=== PATIENT | male | born 1940 | race Caucasian/White ===

== ENCOUNTER 2022-10-25 05:52 | Outpatient (RCR) | payer MEDICARE, OTHER, SELFPAY | END 2022-11-19 23:59 | disposition home or self-care (01) | LOC: MM 05:52 | PROVIDERS: PCP Family Medicine; Visit Provider Internal Medicine | DX: Z51.81 Encounter for therapeutic drug level monitoring (principal); Z79.01 Long term (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 of anticoagulants; I48.0 Paroxysmal atrial fibrillation | CPT/HCPCS: 85610; G0463 ==

== ENCOUNTER 2022-11-25 10:48 | Outpatient (RCR) | payer MEDICARE, OTHER, SELFPAY | END 2022-12-20 16:56 | disposition home or self-care (01) | LOC: MM 10:48 | PROVIDERS: PCP Internal Medicine; Visit Provider Internal Medicine | DX: Z51.81 Encounter for therapeutic drug level monitoring (principal); Z79.01 Long term (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 of anticoagulants; I48.0 Paroxysmal atrial fibrillation | CPT/HCPCS: 85610; G0463 ==

== ENCOUNTER 2022-12-21 09:16 | Outpatient (RCR) | payer MEDICARE, OTHER, SELFPAY | END 2023-01-20 17:31 | disposition home or self-care (01) | LOC: MM 09:16 | PROVIDERS: Visit Provider Internal Medicine | DX: Z51.81 Encounter for therapeutic drug level monitoring (principal); Z79.01 Long term (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 of anticoagulants; I48.0 Paroxysmal atrial fibrillation | CPT/HCPCS: 85610; G0463 ==

== ENCOUNTER 2022-12-29 08:01 | Outpatient (OUT) | payer MEDICARE, OTHER, SELFPAY ==
--- NOTE | 2022-12-29 09:06 | CA_ITS ---
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
== END 2022-12-29 08:02 | disposition home or self-care (01) ==
LOC: CARD 08:01
PROVIDERS: PCP Family Medicine
DX: I73.9 Peripheral vascular disease, unspecified (principal)
CPT/HCPCS: 93923

== ENCOUNTER 2023-01-21 10:16 | Outpatient (RCR) | payer MEDICARE, OTHER, SELFPAY | END 2023-02-18 16:48 | disposition home or self-care (01) | LOC: MM 10:16 | PROVIDERS: PCP Family Medicine; Visit Provider Internal Medicine | DX: Z51.81 Encounter for therapeutic drug level monitoring (principal); Z79.01 Long term (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 of anticoagulants; I48.0 Paroxysmal atrial fibrillation | CPT/HCPCS: 85610; G0463 ==

== ENCOUNTER 2023-02-21 01:48 | Outpatient (RCR) | payer MEDICARE, OTHER, SELFPAY | END 2023-03-22 17:23 | disposition home or self-care (01) | LOC: MM 01:48 | PROVIDERS: PCP Family Medicine; Visit Provider Internal Medicine | DX: Z51.81 Encounter for therapeutic drug level monitoring (principal); Z79.01 Long term (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 of anticoagulants; I48.0 Paroxysmal atrial fibrillation | CPT/HCPCS: 85610; G0463 ==

== ENCOUNTER 2023-03-23 00:38 | Outpatient (RCR) | payer MEDICARE, OTHER, SELFPAY | END 2023-04-21 16:39 | disposition home or self-care (01) | LOC: MM 00:38 | PROVIDERS: PCP Family Medicine; Visit Provider Internal Medicine | DX: Z51.81 Encounter for therapeutic drug level monitoring (principal); Z79.01 Long term (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 of anticoagulants; I48.0 Paroxysmal atrial fibrillation | CPT/HCPCS: 85610; G0463 ==

== ENCOUNTER 2023-04-22 09:27 | Outpatient (RCR) | payer MEDICARE, OTHER, SELFPAY | END 2023-05-20 15:08 | disposition home or self-care (01) | LOC: MM 09:27 | PROVIDERS: PCP Family Medicine; Visit Provider Internal Medicine | DX: Z51.81 Encounter for therapeutic drug level monitoring (principal); Z79.01 Long term (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 of anticoagulants; I48.0 Paroxysmal atrial fibrillation | CPT/HCPCS: 85610; G0463 ==

== ENCOUNTER 2023-05-23 01:23 | Outpatient (RCR) | payer MEDICARE, OTHER, SELFPAY | END 2023-06-22 17:17 | disposition home or self-care (01) | LOC: MM 01:23 | PROVIDERS: PCP Family Medicine; Visit Provider Internal Medicine | DX: Z51.81 Encounter for therapeutic drug level monitoring (principal); Z79.01 Long term (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 of anticoagulants; I48.0 Paroxysmal atrial fibrillation | CPT/HCPCS: 85610; G0463 ==

== ENCOUNTER 2023-06-23 01:04 | Outpatient (RCR) | payer MEDICARE, OTHER, SELFPAY | END 2023-07-21 17:22 | disposition home or self-care (01) | LOC: MM 01:04 | PROVIDERS: PCP Family Medicine; Visit Provider Internal Medicine | DX: Z51.81 Encounter for therapeutic drug level monitoring (principal); Z79.01 Long term (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 of anticoagulants; I48.91 Unspecified atrial fibrillation | CPT/HCPCS: 85610; G0463 ==

== ENCOUNTER 2023-07-22 01:15 | Outpatient (RCR) | payer MEDICARE, OTHER, SELFPAY | END 2023-08-19 13:17 | disposition home or self-care (01) | LOC: MM 01:15 | PROVIDERS: PCP Family Medicine; Visit Provider Internal Medicine | DX: Z51.81 Encounter for therapeutic drug level monitoring (principal); Z79.01 Long term (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 of anticoagulants; I48.0 Paroxysmal atrial fibrillation | CPT/HCPCS: 85610; G0463 ==

== ENCOUNTER 2023-08-17 08:41 | Outpatient (OUT) | payer MEDICARE, OTHER, SELFPAY ==
--- OUTSIDE RECORDS SUMMARY | 2023-08-17 08:48 | XMS_ITS | CCD ---
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 Comment: Therapeutic Range: Moderate Anticoagulant Intensity: INR = 2.0-3.0 High Anticoagulant Intensity: INR = 2.5-3.5 Performed By: #### P T ####[facility] Hyb[address]76 [facility] [place] [address] lab Director: Dl Jean DO PT Coag (PPP) [Time] 23.9 s High 11.8-14.6 [facility] Comment on above: Performed By: #### P T ####[facility] Hdz0860 [facility] [place] [address] lab Director: Dl Jean DO Glucose,Whole Bloodon 2023 Glucose [Mass/Vol] 146 mg/dL High 75-110 [facility] Glucose [Mass/Vol] 182 mg/dL High 75-110 [facility] Glucose [Mass/Vol] 183 mg/dL High 75-110 [facility] Glucose [Mass/Vol] 147 mg/dL High 75-110 [facility] Glucose [Mass/Vol] 151 mg/dL High 75-110 [facility] PTon 07-24-2023 INR Coag (PPP) [Relative time] 1.8 {INR} Normal [facility] Comment on above: Result Comment: Therapeutic Range: Moderate Anticoagulant Intensity: INR = 2.0-3.0 High Anticoagulant Intensity: INR = 2.5-3.5 Performed By: #### P T ####[facility] [address] [place] [address] Lab Director: Dl Jean DO PT Coag (PPP) [Time] 21.3 s High 11.8-14.6 [facility] Comment on above: Performed By: #### P T ####[facility] [address]fq[address] [place] [address] Lab Director: Dl Jean DO Glucose,Whole Bloodon 2023 Glucose [Mass/Vol] 154 mg/dL High 75-110 [facility] Glucose [Mass/Vol] 202 mg/dL High 75-110 [facility] Glucose [Mass/Vol] 180 mg/dL High 75-110 [facility] Liver Profileon 07-23-2023 Albumin [Mass/Vol] 3.6 g/dL Normal 3.5-5.2 [facility] Comment on above: Performed By: #### P T LIVP ####[facility] Mdn7305 [place] [address] Lab Director: Dl Jean DO Alkaline Phos 178 U/L High 40-129 [facility] Comment on above: Performed By: #### P T, LIVP ####[facility] Xng0412 [place] [address] Lab Director: Dl Jean DO ALT [Catalytic activity/Vol] 59 U/L High 5-41 [facility] Comment on above: Performed By: #### P T LIVP ####[facility] Dws[address]69 [place] [address] Lab Director: Dl Jean DO AST [Catalytic activity/Vol] 27 U/L Normal <40 [facility] Comment on above: Performed By: #### P T, LIVP ####[facility] [address] [place] [address] lab Director: Dl Jean DO Bilirubin [Mass/Vol] 0.5 mg/dL Normal 0.3-1.2 [facility] Comment on above: Performed By: #### P T, LIVP ####[facility] [address] [place] [address] lab Director: Dl Jean DO Bilirubin, Indirect 0.3 mg/dL Normal 0.0-1.0 [facility] Comment on above: Performed By: #### P T, LIVP ####[facility] [address] [place] [address] lab Director: Dl Jean DO Bilirubin.indirect [Mass/Vol] 0.2 mg/dL Normal <0.3 [facility] Comment on above: Performed By: #### P T, LIVP ####[facility] Kvj4785 [facility] [place] [address] lab Director: Dl Jean DO Protein [Mass/Vol] 6.3 g/dL Low 6.4-8.3 [facility] Comment on above: Performed By: #### P T, LIVP ####[facility] Ngq4334 [facility] [place] [address] lab Director: Dl Jean DO PTon 07-23-2023 INR Coag (PPP) [Relative time] 1.6 {INR} Normal [facility] Comment on above: Result Comment: Therapeutic Range: Moderate Anticoagulant Intensity: INR = 2.0-3.0 High Anticoagulant Intensity: INR = 2.5-3.5 Performed By: #### P T, LIVP ####[facility] [address] [facility] [place] [address] lab Director: Dl Jean DO PT Coag (PPP) [Time] 19.1 s High 11.8-14.6 [facility] Comment on above: Performed By: #### P T, LIVP ####[facility] X[address]z9146 [place] [address] lab Director: Dl Jean DO Glucose,Whole Bloodon 2023 Glucose [Mass/Vol] 211 mg/dL High 75-110 [facility] Glucose [Mass/Vol] 131 mg/dL High 75-110 [facility] Glucose [Mass/Vol] 227 mg/dL High 75-110 [facility] Glucose [Mass/Vol] 181 mg/dL High -110 [facility] PTon 07-22-2023 INR Coag (PPP) [Relative time] 1.5 {INR} Normal [facility] Comment on above: Result Comment: Therapeutic Range: Moderate Anticoagulant Intensity: INR = 2.0-3.0 High Anticoagulant Intensity: INR = 2.5-3.5 Performed By: #### P T ####[facility] Wdx3071 [place] [address] Lab Director: Dl Jean DO PT Coag (PPP) [Time] 18.0 s High 11.8-14.6 [facility] Comment on above: Performed By: #### P T ####[facility] Dla0822 [place] [address] lab Director: Dl Jean DO Glucose,Whole Bloodon 2023 Glucose [Mass/Vol] 148 mg/dL High 75-110 [facility] Glucose [Mass/Vol] 253 mg/dL High 75-110 [facility] Glucose [Mass/Vol] 190 mg/dL High 75-110 [facility] Glucose [Mass/Vol] 171 mg/dL High 75-110 [facility] PTon 07-21-2023 INR Coag (PPP) [Relative time] 1.5 {INR} Normal [facility] Comment on above: Result Comment: Therapeutic Range: Moderate Anticoagulant Intensity: INR = 2.0-3.0 High Anticoagulant Intensity: INR = 2.5-3.5 Performed By: #### P T ####[facility] [address] [place] [address] lab Director: Dl Jean DO PT Coag (PPP) [Time] 17.9 s High 11.8-14.6 [facility] Comment on above: Performed By: #### P T ####[facility] [address] [facility] [place] [address] lab Director: Dl Jean DO XR CERVICAL SPINE (4-5 VIEWS )on 07-21-2023 XR CERVICAL SPINE (4-5 VIEWS) EXAMINATION: 5 XRAY VIEWS OF THE CERVICAL SPINE 07/21/2023 6:28 pm COMPARISON: 07/14/2023 HISTORY: Persistent pain. Known upper cervical spine fractures. FINDINGS: Osteopenia. Advanced multilevel degenerative changes. No significant spondylolisthesis. Known fracture is not well visualized. Soft tissues are unremarkable. IMPRESSION: Known upper cervical spine fracture not well visualized. Advanced multilevel degenerative changes. No malalignment. Interpreted by: Antonieta Banuelos MD Signed by: Antonieta Banuelos MD 07/21/23 Final result Normal [facility] Basic Metab w/rfx MGon 07-20 Anion gap [Moles/Vol] 12 mmol/L Normal 9-17 [facility] Comment on above: Performed By: #### L IVP, BMPX, PT, CDP ####[facility] Msj1070 [facility] [place] [address] lab Director: Dl Jean DO Calcium [Mass/Vol] 8.9 mg/dL Normal 8.6-10.4 [facility] Comment on above: Performed By: #### L IVP, BMPX, PT, CDP ####[facility] [address] [facility] [place] [address] Lab Director: Dl Jean DO Chloride [Moles/Vol] 102 mmol/L Normal 98-107 [facility] Comment on above: Performed By: #### L IVP, BMPX, PT, CDP ####[facility] [address] [place] [address] Lab Director: Dl Jean DO CO2 [Moles/Vol] 23 mmol/L Normal 20-31 [facility] Comment on above: Performed By: #### L IVP, BMPX, PT, CDP ####[facility] [address] [place] [address] Lab Director: Dl Jean DO Creatinine [Mass/Vol] 0.9 mg/dL Normal 0.7-1.2 [facility] Comment on above: Performed By: #### L IVP, BMPX, PT, CDP ####[facility] [address] [facility] [place] [address] Lab Director: Dl Jean DO GFR/1.73 sq M.predicted among non-blacks MDRD (S/P/Bld) [Vol rate/Area] mL/min/{1.73_m2} Normal >60 [facility] Comment on above: Result Comment: These results are not intended for use in patients <18 years of age. eGFR results are calculated without a race factor using the 2020 CKD-EPI equation. Careful clinical correlation is recommended, particularly when comparing to results calculated using previous equations. The CKD-EPI equation is less accurate in patients with extremes of muscle mass, extra-renal metabolism of creatine, excessive creatine ingestion, or following therapy that affects renal tubular secretion. Performed By: #### L IVP, BMPX, PT, CDP ####[facility] [address] [place] [address] Lab Director: Dl Jean DO Glucose [Mass/Vol] 173 mg/dL High 70-99 [facility] Comment on above: Performed By: #### L IVP, BMPX, PT, CDP ####[facility] [address] [place] [address] lab Director: Dl Jean DO Potassium [Moles/Vol] 4.8 mmol/L Normal 3.7-5.3 [facility] Comment on above: Performed By: #### L IVP, BMPX, PT, CDP ####[facility] [address], [place] [phone] Director: Dl Jean DO Sodium [Moles/Vol] 137 mmol/L Normal 135-144 [facility] Comment on above: Performed By: #### L IVP, BMPX, PT, CDP ####[facility] [address], [place] [address])[phone] Director: Dl Jean DO Urea nitrogen [Mass/Vol] 19 mg/dL Normal 8-23 [facility] Comment on above: Performed By: #### L IVP, BMPX, PT, CDP ####[facility] [id number] [facility] [place] [address] lab Director: Dl Jean DO CBC with Diffon 07-20-2023 Abs. Basophil 0.10 k/uL Normal 0.0-0.2 [facility] Comment on above: Performed By: #### L IVP, BMPX, PT, CDP ####[facility] [address] [place] [address] lab Director: Dl Jean DO Abs.Neutrophil (Seg) 5.00 k/uL Normal 1.3-9.1 [facility] Comment on above: Performed By: #### L IVP, BMPX, PT, CDP ####[facility] [address] [place] [address] lab Director: Dl Jean DO Basophils/100 WBC (Bld) 1 % Normal 0-2 [facility] Comment on above: Performed By: #### L IVP, BMPX, PT, CDP ####[facility] [address] [place] [address] Lab Director: Dl Jean DO Eosinophils (Bld) [#/Vol] 0.10 10*3/uL Normal 0.0-0.4 [facility] Comment on above: Performed By: #### L IVP, BMPX, PT, CDP ####[facility] [address] [facility] [place] [address] Lab Director: Dl Jean DO Eosinophils/100 WBC (Bld) 2 % Normal 0-4 [facility] Comment on above: Performed By: #### L IVP, BMPX, PT, CDP ####[facility] Aoz5754 [facility] [place] [address] Lab Director: Dl Jean DO Erythrocyte distribution width (RBC) [Ratio] 16.4 % High 11.5-14.9 [facility] Comment on above: Performed By: #### L IVP, BMPX, PT, CDP ####[facility] Kpx5760 [facility] [place] [address] Lab Director: Dl Jean DO Hematocrit (Bld) [Volume fraction] 34.5 % Low 41-53 [facility] Comment on above: Performed By: #### L IVP, BMPX, PT, CDP ####[facility] Kkg0453 [facility] [place] [address] Lab Director: Dl Jean DO Hemoglobin (Bld) [Mass/Vol] 11.0 g/dL Low 13.5-17.5 [facility] Comment on above: Performed By: #### L IVP, BMPX, PT, CDP ####[facility] [address] [place] [address] [facility] [place] [address] lab Director: Dl Jean DO Lymphocytes (Bld) [#/Vol] 1.10 10*3/uL Normal 1.0-4.8 [facility] Comment on above: Performed By: #### L IVP, BMPX, PT, CDP ####[facility] Hga9997 [facility], [place] [phone] Director: Dl Jean DO Lymphocytes/100 WBC (Bld) 15 % Low 24-44 [facility] Comment on above: Performed By: #### L IVP, BMPX, PT, CDP ####[address], [place] [phone] Director: Dl Jean DO MCH (RBC) [Entitic mass] 29.8 pg Normal 26-34 [facility] Comment on above: Performed By: #### L IVP, BMPX, PT, CDP ####[address] [address] lab Director: Dl Jean DO MCHC (RBC) [Mass/Vol] 32.0 g/dL Normal 31-37 [facility] Comment on above: Performed By: #### L IVP, BMPX, PT, CDP ####[address] [place] [address] Lab Director: Dl Jean DO MCV (RBC) [Entitic vol] 93.1 fL Normal 80-100 [facility] Comment on above: Performed By: #### L IVP, BMPX, PT, CDP ####[address] [phone] Director: Dl Jean DO Monocytes (Bld) [#/Vol] 0.80 10*3/uL Normal 0.1-1.3 [facility] Comment on above: Performed By: #### L IVP, BMPX, PT, CDP ####[facility] [address], [place] [phone] Director: Dl Jean DO Monocytes/100 WBC (Bld) 11 % High 1-7 [facility] Comment on above: Performed By: #### L IVP, BMPX, PT, CDP ####[facility] [address], [place] [phone] Director: Dl Jean DO Neutrophil (Seg) 71 % High 36-66 [facility] Comment on above: Performed By: #### L IVP, BMPX, PT, CDP ####[facility] [address], [place] [phone] Director: Dl Jean DO Platelet mean volume (Bld) [Entitic vol] 7.4 fL Normal 6.0-12.0 [facility] Comment on above: Performed By: #### L IVP, BMPX, PT, CDP ####[facility] [address] [facility], [place] [phone] Director: Dl Jean DO Platelets (Bld) [#/Vol] 283 10*3/uL Normal 150-450 [facility] Comment on above: Performed By: #### L IVP, BMPX, PT, CDP ####[facility] [address] [facility], [place] [phone] Director: Dl Jean DO RBC (Bld) [#/Vol] 3.70 10*6/uL Low 4.5-5.9 [facility] Comment on above: Performed By: #### L IVP, BMPX, PT, CDP ####[facility] [address], [place] [phone] Director: Dl Jean DO WBC (Bld) [#/Vol] 7.0 10*3/uL Normal 3.5-11.0 [facility] Comment on above: Performed By: #### L IVP, BMPX, PT, CDP ####[facility] Quo4378 [place] [address] Lab Director: Dl Jean DO Glucose,Whole Bloodon 2023 Glucose [Mass/Vol] 178 mg/dL High 75-110 [facility] Glucose [Mass/Vol] 191 mg/dL High 75-110 [facility] Glucose [Mass/Vol] 256 mg/dL High 75-110 [facility] Glucose [Mass/Vol] 136 mg/dL High 75-110 [facility] Glucose [Mass/Vol] 183 mg/dL High 75-110 [facility] Liver Profileon 07-20-2023 Albumin [Mass/Vol] 3.1 g/dL Low 3.5-5.2 [facility] Comment on above: Performed By: #### L IVP, BMPX, PT, CDP ####[facility] Onb4975 [place] [address] Lab Director: Dl Jean DO Alkaline Phos 126 U/L Normal 40-129 [facility] Comment on above: Performed By: #### L IVP, BMPX, PT, CDP ####[facility] Hku1488 [place] [address] Lab Director: Dl Jean DO ALT [Catalytic activity/Vol] 73 U/L High 5-41 [facility] Comment on above: Performed By: #### L IVP, BMPX, PT, CDP ####[facility] Tql9182 [place] [address] Lab Director: Dl Jean DO AST [Catalytic activity/Vol] 56 U/L High <40 [facility] Comment on above: Performed By: #### L IVP, BMPX, PT, CDP ####[facility] [address] [place] [address] lab Director: Dl Jean DO Bilirubin [Mass/Vol] 0.5 mg/dL Normal 0.3-1.2 [facility] Comment on above: Performed By: #### L IVP, BMPX, PT, CDP ####[facility] [address] [place] [address] lab Director: Dl Jean DO Bilirubin, Indirect 0.3 mg/dL Normal 0.0-1.0 [facility] Comment on above: Performed By: #### L IVP, BMPX, PT, CDP ####[facility] [address] [place] [address] lab Director: Dl Jean DO Bilirubin.indirect [Mass/Vol] 0.2 mg/dL Normal <0.3 [facility] Comment on above: Performed By: #### L IVP, BMPX, PT, CDP ####[facility] Sdk9078 [facility] [place] [address] lab Director: Dl Jean DO Protein [Mass/Vol] 5.8 g/dL Low 6.4-8.3 [facility] Comment on above: Performed By: #### L IVP, BMPX, PT, CDP ####[facility] [address] [place] [address] Lab Director: Dl Jean DO PTon 07-20-2023 INR Coag (PPP) [Relative time] 1.2 {INR} Normal [facility] Comment on above: Result Comment: Therapeutic Range: Moderate Anticoagulant Intensity: INR = 2.0-3.0 High Anticoagulant Intensity: INR = 2.5-3.5 Performed By: #### L IVP, BMPX, PT, CDP ####[facility] B[address] [place] [address] Lab Director: Dl Jean DO PT Coag (PPP) [Time] 15.9 s High 11.8-14.6 [facility] Comment on above: Performed By: #### L IVP, BMPX, PT, CDP ####[facility] Lwl[address]289 [place] [address] lab Director: Dl Jean DO Glucose,Whole Bloodon 2023 Glucose [Mass/Vol] 254 mg/dL High 75-110 [facility] Glucose [Mass/Vol] 155 mg/dL High 75-110 [facility] PTon 07-19-2023 INR Coag (PPP) [Relative time] 1.3 {INR} Normal [facility] Comment on above: Result Comment: Therapeutic Range: Moderate Anticoagulant Intensity: INR = 2.0-3.0 High Anticoagulant Intensity: INR = 2.5-3.5 Performed By: #### P T ####[address] [address] lab Director: Carlos Rowland MD PT Coag (PPP) [Time] 16.1 s High 11.7-14.9 [facility] Comment on above: Performed By: #### P T ####[facility] [place] [address] Lab Director: Carlos Rowland MD Basic Metabolic Profon 07-18 Anion gap [Moles/Vol] 10 mmol/L Normal 9-17 [facility] Comment on above: Performed By: #### P HO, MG, BMP, CDP, PT ####[facility] [address] [place] [address] lab Director: Carlos Rowland MD Calcium [Mass/Vol] 8.5 mg/dL Low 8.6-10.4 [facility] Comment on above: Performed By: #### P HO, MG, BMP, CDP, PT ####[facility] [address] [place] [address] Lab Director: Carlos Rowland MD Chloride [Moles/Vol] 104 mmol/L Normal 98-107 [facility] Comment on above: Performed By: #### P HO, MG, BMP, CDP, PT ####[facility] [address] [place] [address] Lab Director: Carlos Rowland MD CO2 [Moles/Vol] 24 mmol/L Normal 20-31 [facility] Comment on above: Performed By: #### P HO, MG, BMP, CDP, PT ####[facility] [address] [place] [address] Lab Director: Carlos Rowland MD Creatinine [Mass/Vol] 0.9 mg/dL Normal 0.7-1.2 [facility] Comment on above: Performed By: #### P HO, MG, BMP, CDP, PT ####[facility] [address] [place] [address] Lab Director: Carlos Rowland MD GFR/1.73 sq M.predicted among non-blacks MDRD (S/P/Bld) [Vol rate/Area] mL/min/{1.73_m2} Normal >60 [facility] Comment on above: Result Comment: These results are not intended for use in patients <18 years of age. eGFR results are calculated without a race factor using the 2020 CKD-EPI equation. Careful clinical correlation is recommended, particularly when comparing to results calculated using previous equations. The CKD-EPI equation is less accurate in patients with extremes of muscle mass, extra-renal metabolism of creatine, excessive creatine ingestion, or following therapy that affects renal tubular secretion. Performed By: #### P HO, MG, BMP, CDP, PT ####[facility] [address] [place] [address] Lab Director: Carlos Rowland MD Glucose [Mass/Vol] 121 mg/dL High 70-99 [facility] Comment on above: Performed By: #### P HO, MG, BMP, CDP, PT ####[facility] [address] [place], [place] [address])[phone] Director: Carlos Rowland MD Potassium [Moles/Vol] 4.4 mmol/L Normal 3.7-5.3 [facility] Comment on above: Performed By: #### P HO, MG, BMP, CDP, PT ####[facility] [address] [place], [place] [address])[phone] Director: Carlos Rowland MD Sodium [Moles/Vol] 138 mmol/L Normal 135-144 [facility] Comment on above: Performed By: #### P HO, MG, BMP, CDP, PT ####[place], [place] [address])[phone] Director: Carlos Rowland MD Urea nitrogen [Mass/Vol] 19 mg/dL Normal 8-23 [facility] Comment on above: Performed By: #### P HO, MG, BMP, CDP, PT ####[facility] [address] [place], [place] [address])[phone] Director: Carlos Rowland MD CBC with Diffon 07-18-2023 Abs. Basophil 0.07 k/uL Normal 0.00-0.20 [facility] Comment on above: Performed By: #### P HO, MG, BMP, CDP, PT ####[facility] [address] [place], [place] [address])[phone] Director: Carlos Rowland MD Abs.Imm.Granulocyte <0.03 Normal 0.00-0.30 [facility] Comment on above: Performed By: #### P HO, MG, BMP, CDP, PT ####[facility] [address] [place], [place] [address])[phone] Director: Carlos Rowland MD Abs.Neutrophil (Seg) 5.21 k/uL Normal 1.50-8.10 [facility] Comment on above: Performed By: #### P HO, MG, BMP, CDP, PT ####[facility] [address] [place] [address])[phone] Director: Carlos Rowland MD Basophils/100 WBC (Bld) 1 % Normal 0-2 [facility] Comment on above: Performed By: #### P HO, MG, BMP, CDP, PT ####[place], [place] [address])[phone] Director: Carlos Rowland MD Eosinophils (Bld) [#/Vol] 0.14 10*3/uL Normal 0.00-0.44 [facility] Comment on above: Performed By: #### P HO, MG, BMP, CDP, PT ####[address] [address])[phone] Director: Carlos Rowland MD Eosinophils/100 WBC (Bld) 2 % Normal 1-4 [facility] Comment on above: Performed By: #### P HO, MG, BMP, CDP, PT ####[place], [place] [address])[phone] Director: Carlos Rowland MD Erythrocyte distribution width (RBC) [Ratio] 15.3 % High 11.8-14.4 [facility] Comment on above: Performed By: #### P HO, MG, BMP, CDP, PT ####[facility] [address] [place], [place] [address])[phone] Director: Carlos Rowland MD Hematocrit (Bld) [Volume fraction] 31.7 % Low 40.7-50.3 [facility] Comment on above: Performed By: #### P HO, MG, BMP, CDP, PT ####[facility] [address] [place], [place] [address])[phone] Director: Carlos Rowland MD Hemoglobin (Bld) [Mass/Vol] 10.4 g/dL Low 13.0-17.0 [facility] Comment on above: Performed By: #### P HO, MG, BMP, CDP, PT ####[facility] [address]fp[address] [place], [place] [address])[phone] Director: Carlos Rowland MD Immature granulocytes/100 WBC (Bld) 0 % Normal 0 [facility] Comment on above: Performed By: #### P HO, MG, BMP, CDP, PT ####[facility] [address] [place], [place] [address])[phone] Director: Carlos Rowland MD Lymphocytes (Bld) [#/Vol] 1.29 10*3/uL Normal 1.10-3.70 [facility] Comment on above: Performed By: #### P HO, MG, BMP, CDP, PT ####[facility] [address] [place], [place] [address])[phone] Director: Carlos Rowland MD Lymphocytes/100 WBC (Bld) 17 % Low 24-43 [facility] Comment on above: Performed By: #### P HO, MG, BMP, CDP, PT ####[facility] [address] [place], [place] [address])[phone] Director: Carlos Rowland MD MCH (RBC) [Entitic mass] 30.3 pg Normal 25.2-33.5 [facility] Comment on above: Performed By: #### P HO, MG, BMP, CDP, PT ####[facility] [address] [place], [place] [address])[phone] Director: Carlos Rowland MD MCHC (RBC) [Mass/Vol] 32.8 g/dL Normal 28.4-34.8 [facility] Comment on above: Performed By: #### P HO, MG, BMP, CDP, PT ####[facility] [address] [place], [place] [address])[phone] Director: Carlos Rowland MD MCV (RBC) [Entitic vol] 92.4 fL Normal 82.6-102.9 [facility] Comment on above: Performed By: #### P HO, MG, BMP, CDP, PT ####[facility] [address]tnxzmwkklek75[address] [place], [place] [id number])[phone] Director: Carlos Rowland MD Monocytes (Bld) [#/Vol] 0.81 10*3/uL Normal 0.10-1.20 [facility] Comment on above: Performed By: #### P HO, MG, BMP, CDP, PT ####[facility] [address] [place], [place] [address])[phone] Director: Carlos Rowland MD Monocytes/100 WBC (Bld) 11 % Normal 3-12 [facility] Comment on above: Performed By: #### P HO, MG, BMP, CDP, PT ####[facility] [address] [place] [address])[phone] Director: Carlos Rowland MD Neutrophil (Seg) 69 % High 36-65 [facility] Comment on above: Performed By: #### P HO, MG, BMP, CDP, PT ####[facility] [address] [place] [address] [id number])[phone] Director: Carlos Rowland MD NRBC Automated 0.0 per 100 WBC Normal 0.0 [facility] Comment on above: Performed By: #### P HO, MG, BMP, CDP, PT ####[facility] [address]tr[address] [place], [place] [id number])[phone] Director: Carlos Rowland MD Platelet mean volume (Bld) [Entitic vol] 9.8 fL Normal 8.1-13.5 [facility] Comment on above: Performed By: #### P HO, MG, BMP, CDP, PT ####[facility] [address]ubtq[address] [place], [place] [id number])[phone] Director: Carlos Rowland MD Platelets (Bld) [#/Vol] 238 10*3/uL Normal 138-453 [facility] Comment on above: Performed By: #### P HO, MG, BMP, CDP, PT ####[facility] Hdxyfqyvrzdi12[address] [place], [place] [id number])[phone] Director: Carlos Rowland MD RBC (Bld) [#/Vol] 3.43 10*6/uL Low 4.21-5.77 [facility] Comment on above: Performed By: #### P HO, MG, BMP, CDP, PT ####[facility] [address]zds[address] [place] [address] Lab Director: Carlos Rowland MD RBC morphology finding Nom (Bld) ANISOCYTOSIS PRESENT Normal [facility] Comment on above: Performed By: #### P HO, MG, BMP, CDP, PT ####[facility] [address]vzh[address] [place], [place] [id number])[phone] Director: Carlos Rowland MD WBC (Bld) [#/Vol] 7.5 10*3/uL Normal 3.5-11.3 [facility] Comment on above: Performed By: #### P HO, MG, BMP, CDP, PT ####[facility] [address]yuozk[address] [place], [place] [id number])[phone] Director: Carlos Rowland MD Cult,Bloodon 07-18-2023 Cult,Blood Specimen Description .BLOOD Special Requests RT HAND 1 ML Culture NO GROWTH 5 DAYS Report Status FINAL 07/18/2023 Normal [facility] Comment on above: Performed By: #### B C ####[facility] [address] [place], [place] [id number])[phone] Director: Carlos Rowland MD Cult,Blood Specimen Description .BLOOD Special Requests LEFT HAND 1 ML Culture NO GROWTH 5 DAYS Report Status FINAL 07/18/2023 Normal [facility] Comment on above: Performed By: #### B C ####[facility] [address] [place], [place] [phone] lab Director: Carlos Rowland MD Glucose,Whole Bloodon 2023 Glucose [Mass/Vol] 255 mg/dL High 75-110 [facility] Glucose [Mass/Vol] 311 mg/dL High 75-110 [facility] Glucose [Mass/Vol] 142 mg/dL High 75-110 [facility] Glucose [Mass/Vol] 312 mg/dL High 75-110 [facility] Glucose [Mass/Vol] 178 mg/dL High 75-110 [facility] Glucose [Mass/Vol] 167 mg/dL High 75-110 [facility] Magnesiumon 07-18-2023 Magnesium [Mass/Vol] 1.9 mg/dL Normal 1.6-2.6 [facility] Comment on above: Performed By: #### P HO, MG, BMP, CDP, PT ####[facility] Hospital[facility]ouserieWniwmheaepko16[address] [place] [phone] lab Director: Carlos Rowland MD PTon 07-18-2023 INR Coag (PPP) [Relative time] 1.3 {INR} Normal [facility] Comment on above: Result Comment: Therapeutic Range: Moderate Anticoagulant Intensity: INR = 2.0-3.0 High Anticoagulant Intensity: INR = 2.5-3.5 Performed By: #### P HO, MG, BMP, CDP, PT ####[facility]Any[facility] [address]fr[address] [place] [phone] lab Director: Carlos Rowland MD PT Coag (PPP) [Time] 15.8 s High 11.7-14.9 [facility] Comment on above: Performed By: #### P HO, MG, BMP, CDP, PT ####[facility] [address] [place], [place] [phone] lab Director: Carlos Rowland MD Phosphorus, Inorg.on 024 Phosphorus, Inorg. 3.6 mg/dL Normal 2.5-4.5 [facility] Comment on above: Performed By: #### P HO, MG, BMP, CDP, PT ####[address] [address] Lab Director: Carlos Rowland MD Basic Metabolic Profon 07-17 Anion gap [Moles/Vol] 8 mmol/L Low 9-17 [facility] Comment on above: Performed By: #### U MICAO, UAX #### [facility] [address] [place] [address] [employer]: Carlos Rowland MD Calcium [Mass/Vol] 8.6 mg/dL Normal 8.6-10.4 [facility] Comment on above: Performed By: #### U MICAO, UAX #### [address] [address] [employer]: Carlos Rowland MD Chloride [Moles/Vol] 102 mmol/L Normal 98-107 [facility] Comment on above: Performed By: #### U MELIZAO, UAX #### [address] [address] [employer]: Carlos Rowland MD CO2 [Moles/Vol] 23 mmol/L Normal 20-31 [facility] Comment on above: Performed By: #### U MELIZAO, UAX #### [facility] [employer] [address] [place] [address] [employer]: Carlos Rowland MD Creatinine [Mass/Vol] 0.9 mg/dL Normal 0.7-1.2 [facility] Comment on above: Performed By: #### U MICAO, UAX #### [facility] [employer] [address] [place] [address] [employer]: Carlos Rowland MD GFR/1.73 sq M.predicted among non-blacks MDRD (S/P/Bld) [Vol rate/Area] mL/min/{1.73_m2} Normal >60 [facility] Comment on above: Result Comment: These results are not intended for use in patients <18 years of age. eGFR results are calculated without a race factor using the 2020 CKD-EPI equation. Careful clinical correlation is recommended, particularly when comparing to results calculated using previous equations. The CKD-EPI equation is less accurate in patients with extremes of muscle mass, extra-renal metabolism of creatine, excessive creatine ingestion, or following therapy that affects renal tubular secretion. Performed By: #### U EDGAR UAX #### [facility] [employer] [address] [place] [address] [employer]: Carlos Rowland MD Glucose [Mass/Vol] 169 mg/dL High 70-99 [facility] Comment on above: Performed By: #### Anant HERNÁNDEZ UAX #### [address] [address] [employer]: Carlos Rowland MD Potassium [Moles/Vol] 4.8 mmol/L Normal 3.7-5.3 [facility] Comment on above: Performed By: #### Anant HERNÁNDEZ UAX #### [address] [address] [employer]: Carlos Rowland MD Sodium [Moles/Vol] 133 mmol/L Low 135-144 [facility] Comment on above: Performed By: #### Anant HERNÁNDEZ UAX #### [facility] [employer] [address] [place] [address] [employer]: Carlos Rowland MD Urea nitrogen [Mass/Vol] 22 mg/dL Normal 8-23 [facility] Comment on above: Performed By: #### U EDGAR UAX #### [address] [address] [employer]: Carlos Rowland MD CBC with Diffon 07-17-2023 Abs. Basophil 0.09 k/uL Normal 0.00-0.20 [facility] Comment on above: Performed By: #### U EDGAR UAX #### [address] [address] [employer]: Carlos Rowland MD Abs.Imm.Granulocyte 0.04 k/uL Normal 0.00-0.30 [facility] Comment on above: Performed By: #### U EDGAR UAX #### [address] [address] [employer]: Carlos Rowland MD Abs.Neutrophil (Seg) 5.58 k/uL Normal 1.50-8.10 [facility] Comment on above: Performed By: #### U EDGAR UAX #### [facility] [employer] [address] [place] [address] [employer]: Carlos Rowland MD Basophils/100 WBC (Bld) 1 % Normal 0-2 [facility] Comment on above: Performed By: #### U EDGAR UAX #### [address] [address] [employer]: Carlos Rowland MD Eosinophils (Bld) [#/Vol] 0.16 10*3/uL Normal 0.00-0.44 [facility] Comment on above: Performed By: #### Anant HERNÁNDEZ UAX #### [address] [address] [employer]: Carlos Rowland MD Eosinophils/100 WBC (Bld) 2 % Normal 1-4 [facility] Comment on above: Performed By: #### U EDGAR UAX #### [facility] [employer] [address] [place] [address] [employer]: Carlos Rowland MD Erythrocyte distribution width (RBC) [Ratio] 15.3 % High 11.8-14.4 [facility] Comment on above: Performed By: #### U EDGAR UAX #### [facility] [employer] [address] [place] [address] [employer]: Carlos Rowland MD Hematocrit (Bld) [Volume fraction] 35.8 % Low 40.7-50.3 [facility] Comment on above: Performed By: #### U MICAO, UAX #### [address] [address] [employer]: Carlos Rowland MD Hemoglobin (Bld) [Mass/Vol] 11.2 g/dL Low 13.0-17.0 [facility] Comment on above: Performed By: #### U MICAO, UAX #### [address] [address] [employer]: Carlos Rowland MD Immature granulocytes/100 WBC (Bld) 1 % High 0 [facility] Comment on above: Performed By: #### U EDGAR, UAX #### [address] [address] [employer]: Carlos Rowland MD Lymphocytes (Bld) [#/Vol] 1.11 10*3/uL Normal 1.10-3.70 [facility] Comment on above: Performed By: #### U EDGAR, UAX #### [address] [address] [employer]: Carlos Rowland MD Lymphocytes/100 WBC (Bld) 14 % Low 24-43 [facility] Comment on above: Performed By: #### U MICAO, UAX #### [address] [address] [employer]: Carlos Rowland MD MCH (RBC) [Entitic mass] 29.4 pg Normal 25.2-33.5 [facility] Comment on above: Performed By: #### U MELIZAO, UAX #### [facility] [employer] [address] [place] [address] [employer]: Carlos Rowland MD MCHC (RBC) [Mass/Vol] 31.3 g/dL Normal 28.4-34.8 [facility] Comment on above: Performed By: #### U MELIZAO, UAX #### [address] [address] [employer]: Carlos Rowland MD MCV (RBC) [Entitic vol] 94.0 fL Normal 82.6-102.9 [facility] Comment on above: Performed By: #### U MICAO, UAX #### [address] [address] [employer]: Carlos Rowland MD Monocytes (Bld) [#/Vol] 0.74 10*3/uL Normal 0.10-1.20 [facility] Comment on above: Performed By: #### U EDGAR, UAX #### [address] [address] [employer]: Carlos Rowland MD Monocytes/100 WBC (Bld) 10 % Normal 3-12 [facility] Comment on above: Performed By: #### U MELIZAO, UAX #### [address] [address] [employer]: Carlos Rowland MD Neutrophil (Seg) 72 % High 36-65 [facility] Comment on above: Performed By: #### U MICAO, UAX #### [address] [address] [employer]: Carlos Rowland MD NRBC Automated 0.0 per 100 WBC Normal 0.0 [facility] Comment on above: Performed By: #### U MICAO, UAX #### [address] [address] [employer]: Carlos Rowland MD Platelet mean volume (Bld) [Entitic vol] 9.7 fL Normal 8.1-13.5 [facility] Comment on above: Performed By: #### U EDGAR UAX #### [address] [address] [employer]: Carlos Rowland MD Platelets (Bld) [#/Vol] 235 10*3/uL Normal 138-453 [facility] Comment on above: Performed By: #### Anant HERNÁNDEZ UAX #### [facility] [employer] [address] [place] [address] [employer]: Carlos Rowland MD RBC (Bld) [#/Vol] 3.81 10*6/uL Low 4.21-5.77 [facility] Comment on above: Performed By: #### Anant HERNÁNDEZ UAX #### [address] [address] [employer]: Carlos Rowland MD RBC morphology finding Nom (Bld) ANISOCYTOSIS PRESENT Normal [facility] Comment on above: Performed By: #### Anant HERNÁNDEZ UAX #### [facility] [employer] [address] [place] [address] [employer]: Carlos Rowland MD WBC (Bld) [#/Vol] 7.7 10*3/uL Normal 3.5-11.3 [facility] Comment on above: Performed By: #### Anant HERNÁNDEZ UAX #### [address] [address] [employer]: Carlos Rowland MD Glucose,Whole Bloodon 2023 Glucose [Mass/Vol] 251 mg/dL High 75-110 [facility] Glucose [Mass/Vol] 185 mg/dL High 75-110 [facility] Glucose [Mass/Vol] 293 mg/dL High 75-110 [facility] Magnesiumon 07-17-2023 Magnesium [Mass/Vol] 1.9 mg/dL Normal 1.6-2.6 [facility] Comment on above: Performed By: #### Anant HERNÁNDEZ UAX #### [facility] [address] [place] [address] [phone] [employer]: Carlos Rowland MD PTon 07-17-2023 INR Coag (PPP) [Relative time] 1.2 {INR} Normal [facility] Comment on above: Result Comment: Therapeutic Range: Moderate Anticoagulant Intensity: INR = 2.0-3.0 High Anticoagulant Intensity: INR = 2.5-3.5 Performed By: #### Anant HERNÁNDEZ UAX #### [facility] [employer] [address] [place] [address] [phone] [employer]: Carlos Rowland MD PT Coag (PPP) [Time] 14.9 s Normal 11.7-14.9 [facility] Comment on above: Performed By: #### Anant HERNÁNDEZ UAX #### [facility] [address] [place] [address] [employer]: Carlos Rowland MD Phosphorus, Inorg.on 024 Phosphorus, Inorg. 3.1 mg/dL Normal 2.5-4.5 [facility] Comment on above: Performed By: #### Anant HERNÁNDEZ UAX #### [facility] [address] [place] [address] [employer]: Carlos Rowland MD Basic Metabolic Profon 07-16 Anion gap [Moles/Vol] 11 mmol/L Normal 9-17 [facility] Comment on above: Performed By: #### Anant HERNÁNDEZ UAX #### [facility] [employer] [address] [place] [address] [phone] [employer]: Carlos Rowland MD Calcium [Mass/Vol] 8.3 mg/dL Low 8.6-10.4 [facility] Comment on above: Performed By: #### LEDY RYDERX #### [facility] [address] [place] [address] [employer]: Carlos Rowland MD Chloride [Moles/Vol] 103 mmol/L Normal 98-107 [facility] Comment on above: Performed By: #### U MICAO, UAX #### [facility] [address] [place] [address] [employer]: Carlos Rowland MD CO2 [Moles/Vol] 22 mmol/L Normal 20-31 [facility] Comment on above: Performed By: #### U MICAO, UAX #### [facility] [employer] [address] [place] [address] [employer]: Carlos Rowland MD Creatinine [Mass/Vol] 1.0 mg/dL Normal 0.7-1.2 [facility] Comment on above: Performed By: #### U MELIZAO, UAX #### [facility] [employer] [address] [place] [address] [employer]: Carlos Rowland MD GFR/1.73 sq M.predicted among non-blacks MDRD (S/P/Bld) [Vol rate/Area] mL/min/{1.73_m2} Normal >60 [facility] Comment on above: Result Comment: These results are not intended for use in patients <18 years of age. eGFR results are calculated without a race factor using the 2020 CKD-EPI equation. Careful clinical correlation is recommended, particularly when comparing to results calculated using previous equations. The CKD-EPI equation is less accurate in patients with extremes of muscle mass, extra-renal metabolism of creatine, excessive creatine ingestion, or following therapy that affects renal tubular secretion. Performed By: #### U MICAO, UAX #### [facility] [employer] [address] [place] [address] [employer]: Carlos Rowland MD Glucose [Mass/Vol] 160 mg/dL High 70-99 [facility] Comment on above: Performed By: #### U MICAO, UAX #### [address] [address] [employer]: Carlos Rowland MD Potassium [Moles/Vol] 4.3 mmol/L Normal 3.7-5.3 [facility] Comment on above: Performed By: #### U EDGAR, UAX #### [address] [address] [employer]: Carlos Rowland MD Sodium [Moles/Vol] 136 mmol/L Normal 135-144 [facility] Comment on above: Performed By: #### U EDGAR, UAX #### [address] [address] [employer]: Carlos Rowland MD Urea nitrogen [Mass/Vol] 23 mg/dL Normal 8-23 [facility] Comment on above: Performed By: #### U EDGAR UAX #### [address] [address] [employer]: Carlos Rowland MD CBC with Diffon 07-16-2023 Abs. Basophil 0.07 k/uL Normal 0.00-0.20 [facility] Comment on above: Performed By: #### U EDGAR, UAX #### [address] [address] [employer]: Carlos Rowland MD Abs.Imm.Granulocyte 0.04 k/uL Normal 0.00-0.30 [facility] Comment on above: Performed By: #### U EDGAR, UAX #### [facility] [employer] [address] [place] [address] [employer]: Carlos Rowland MD Abs.Neutrophil (Seg) 7.16 k/uL Normal 1.50-8.10 [facility] Comment on above: Performed By: #### U EDGAR, UAX #### [facility] [employer] [address] [place] [address] [employer]: Carlos Rowland MD Basophils/100 WBC (Bld) 1 % Normal 0-2 [facility] Comment on above: Performed By: #### U MICAO, UAX #### [address] [address] [employer]: Carlos Rowland MD Eosinophils (Bld) [#/Vol] 0.19 10*3/uL Normal 0.00-0.44 [facility] Comment on above: Performed By: #### U MICAO, UAX #### [address] [address] [employer]: Carlos Rowland MD Eosinophils/100 WBC (Bld) 2 % Normal 1-4 [facility] Comment on above: Performed By: #### U MELIZAO, UAX #### [address] [address] [employer]: Carlso Rowland MD Erythrocyte distribution width (RBC) [Ratio] 15.2 % High 11.8-14.4 [facility] Comment on above: Performed By: #### U MICAO, UAX #### [facility] [employer] [address] [place] [address] [employer]: Carlos Rowland MD Hematocrit (Bld) [Volume fraction] 35.9 % Low 40.7-50.3 [facility] Comment on above: Performed By: #### U MICAO, UAX #### [facility] [employer] [address] [place] [address] [employer]: Carlos Rowland MD Hemoglobin (Bld) [Mass/Vol] 11.2 g/dL Low 13.0-17.0 [facility] Comment on above: Performed By: #### U MICAO, UAX #### [facility] [employer] [address] [place] [address] [employer]: Carlos Rowland MD Immature granulocytes/100 WBC (Bld) 0 % Normal 0 [facility] Comment on above: Performed By: #### U EDGAR UAX #### [address] [address] [employer]: Carlos Rowland MD Lymphocytes (Bld) [#/Vol] 1.36 10*3/uL Normal 1.10-3.70 [facility] Comment on above: Performed By: #### U EDGAR UAX #### [address] [address] [employer]: Carlos Rowland MD Lymphocytes/100 WBC (Bld) 14 % Low 24-43 [facility] Comment on above: Performed By: #### Anant HERNÁNDEZ UAX #### [address] [address] [employer]: Carlos Rowland MD MCH (RBC) [Entitic mass] 29.9 pg Normal 25.2-33.5 [facility] Comment on above: Performed By: #### Anant HERNÁNDEZ UAX #### [facility] [employer] [address] [place] [address] [employer]: Carlos Rowland MD MCHC (RBC) [Mass/Vol] 31.2 g/dL Normal 28.4-34.8 [facility] Comment on above: Performed By: #### Anant HERNÁNDEZ UAX #### [facility] [employer] [address] [place] [address] [employer]: Carlos Rowland MD MCV (RBC) [Entitic vol] 96.0 fL Normal 82.6-102.9 [facility] Comment on above: Performed By: #### U EDGAR, UAX #### [facility] [employer] [address] [place] [address] [employer]: Carlos Rowland MD Monocytes (Bld) [#/Vol] 0.92 10*3/uL Normal 0.10-1.20 [facility] Comment on above: Performed By: #### Anant HERNÁNDEZ UAX #### [address] [address] [employer]: Carlos Rowland MD Monocytes/100 WBC (Bld) 9 % Normal 3-12 [facility] Comment on above: Performed By: #### U EDGAR UAX #### [address] [address] [employer]: Carlos Rowland MD Neutrophil (Seg) 74 % High 36-65 [facility] Comment on above: Performed By: #### Anant HERNÁNDEZ UAX #### [address] [address] [employer]: Carlos Rowland MD NRBC Automated 0.0 per 100 WBC Normal 0.0 [facility] Comment on above: Performed By: #### Anant HERNÁNDEZ UAX #### [address] [address] [employer]: Carlos Rowland MD Platelet mean volume (Bld) [Entitic vol] 9.9 fL Normal 8.1-13.5 [facility] Comment on above: Performed By: #### Anant HERNÁNDEZ UAX #### [address] [address] [employer]: Carlos Rowland MD Platelets (Bld) [#/Vol] 223 10*3/uL Normal 138-453 [facility] Comment on above: Performed By: #### U EDGAR UAX #### [address] [address] [employer]: Carlos Rowland MD RBC (Bld) [#/Vol] 3.74 10*6/uL Low 4.21-5.77 [facility] Comment on above: Performed By: #### U EDGAR, UAX #### [facility] [place] [address] [employer]: Carlos Rowland MD RBC morphology finding Nom (Bld) ANISOCYTOSIS PRESENT Normal [facility] Comment on above: Performed By: #### U EDGAR, UAX #### [facility] [employer] [address] [place] [address] [employer]: Carlos Rowland MD WBC (Bld) [#/Vol] 9.7 10*3/uL Normal 3.5-11.3 [facility] Comment on above: Performed By: #### U EDGAR UAX #### [facility] [address] [place] [address] [employer]: Carlos Rowland MD Glucose,Whole Bloodon 2023 Glucose [Mass/Vol] 220 mg/dL High 75-110 [facility] Glucose [Mass/Vol] 156 mg/dL High 75-110 [facility] Glucose [Mass/Vol] 267 mg/dL High 75-110 [facility] Glucose [Mass/Vol] 167 mg/dL High 75-110 [facility] Magnesiumon 07-16-2023 Magnesium [Mass/Vol] 2.0 mg/dL Normal 1.6-2.6 [facility] Comment on above: Performed By: #### U EDGAR UAX #### [employer] [address] [place] [address] [employer]: Carlos Rowland MD PTon 07-16-2023 INR Coag (PPP) [Relative time] 1.3 {INR} Normal [facility] Comment on above: Result Comment: Therapeutic Range: Moderate Anticoagulant Intensity: INR = 2.0-3.0 High Anticoagulant Intensity: INR = 2.5-3.5 Performed By: #### U EDGAR UAX #### [employer] [address] [place] [address] [employer]: Carlos Rowland MD PT Coag (PPP) [Time] 15.9 s High 11.7-14.9 [facility] Comment on above: Performed By: #### U EDGAR UAX #### [facility] [address] [place] [address] [employer]: Carlos Rowland MD Phosphorus, Inorg.on 024 Phosphorus, Inorg. 3.3 mg/dL Normal 2.5-4.5 [facility] Comment on above: Performed By: #### Anant HERNÁNDEZ UAX #### [facility] [employer] [address] [place] [address] [employer]: Carlos Rowland MD Basic Metabolic Profon 07-15 Anion gap [Moles/Vol] 12 mmol/L Normal 9-17 [facility] Comment on above: Performed By: #### P HO, BMP, CDP, MG ####[facility] [address]wlvvh47[address] [place] [address] Lab Director: Carlos Rowland MD Calcium [Mass/Vol] 8.5 mg/dL Low 8.6-10.4 [facility] Comment on above: Performed By: #### P HO, BMP, CDP, MG ####[facility] [address] [place] [address] Lab Director: Carlos Rowland MD Chloride [Moles/Vol] 102 mmol/L Normal 98-107 [facility] Comment on above: Performed By: #### P HO, BMP, CDP, MG ####[facility] [address] [place] [address] Lab Director: Carlos Rowland MD CO2 [Moles/Vol] 19 mmol/L Low 20-31 [facility] Comment on above: Performed By: #### P HO, BMP, CDP, MG ####[facility] [address] [place] [address] Lab Director: Carlos Rowland MD Creatinine [Mass/Vol] 1.1 mg/dL Normal 0.7-1.2 [facility] Comment on above: Performed By: #### P HO, BMP, CDP, MG ####[facility] [address] [place] [address] Lab Director: Carlos Rowland MD GFR/1.73 sq M.predicted among non-blacks MDRD (S/P/Bld) [Vol rate/Area] mL/min/{1.73_m2} Normal >60 [facility] Comment on above: Result Comment: These results are not intended for use in patients <18 years of age. eGFR results are calculated without a race factor using the 2020 CKD-EPI equation. Careful clinical correlation is recommended, particularly when comparing to results calculated using previous equations. The CKD-EPI equation is less accurate in patients with extremes of muscle mass, extra-renal metabolism of creatine, excessive creatine ingestion, or following therapy that affects renal tubular secretion. Performed By: #### P HO, BMP, CDP, MG ####[facility] [address]sl[address] [place], [place] [phone] Director: Carlos Rowland MD Glucose [Mass/Vol] 154 mg/dL High 70-99 [facility] Comment on above: Performed By: #### P HO, BMP, CDP, MG ####[facility] [address] [place] [address] Lab Director: Carlos Rowland MD Potassium [Moles/Vol] 4.3 mmol/L Normal 3.7-5.3 [facility] Comment on above: Performed By: #### P HO, BMP, CDP, MG ####[facility] [address] [place], [place] [phone])[phone] Director: Carlos Rowland MD Sodium [Moles/Vol] 133 mmol/L Low 135-144 [facility] Comment on above: Performed By: #### P HO, BMP, CDP, MG ####[facility] [address] [place], [place] [address])[phone] Director: Carlos Rowland MD Urea nitrogen [Mass/Vol] 27 mg/dL High - [facility] Comment on above: Performed By: #### P HO, BMP, CDP, MG ####[facility] [address] [place], [place] [address])[phone] Director: Carlos Rowland MD CBC with Diffon 07-15-2023 Abs. Basophil 0.06 k/uL Normal 0.00-0.20 [facility] Comment on above: Performed By: #### P HO, BMP, CDP, MG ####[facility] [address]nsx[address] [place], [place] [address])[phone] Director: Carlos Rowland MD Abs.Imm.Granulocyte 0.04 k/uL Normal 0.00-0.30 [facility] Comment on above: Performed By: #### P HO, BMP, CDP, MG ####[facility] [address] [place], [place] [address])[phone] Director: Carlos Rowland MD Abs.Neutrophil (Seg) 6.54 k/uL Normal 1.50-8.10 [facility] Comment on above: Performed By: #### P HO, BMP, CDP, MG ####[facility] [address] [place], [place] [address])[phone] Director: Carlos Rowland MD Basophils/100 WBC (Bld) 1 % Normal 0-2 [facility] Comment on above: Performed By: #### P HO, BMP, CDP, MG ####[facility] [address] [place], [place] [address])[phone] Director: Carlos Rowland MD Eosinophils (Bld) [#/Vol] 0.26 10*3/uL Normal 0.00-0.44 [facility] Comment on above: Performed By: #### P HO, BMP, CDP, MG ####[facility] [address]rflzdpcq4793 [place] [address] Lab Director: Carlos Rowland MD Eosinophils/100 WBC (Bld) 3 % Normal 1-4 [facility] Comment on above: Performed By: #### P HO, BMP, CDP, MG ####[facility] [address] [place] [address])[phone] Director: Carlos Rowland MD Erythrocyte distribution width (RBC) [Ratio] 15.2 % High 11.8-14.4 [facility] Comment on above: Performed By: #### P HO, BMP, CDP, MG ####[address] [address])[phone] Director: Carlos Rowland MD Hematocrit (Bld) [Volume fraction] 39.1 % Low 40.7-50.3 [facility] Comment on above: Performed By: #### P HO, BMP, CDP, MG ####[facility] [address] [place] [address])[phone] Director: Carlos Rowland MD Hemoglobin (Bld) [Mass/Vol] 11.9 g/dL Low 13.0-17.0 [facility] Comment on above: Performed By: #### P HO, BMP, CDP, MG ####[address] [address])[phone] Director: Carlos Rowland MD Immature granulocytes/100 WBC (Bld) 0 % Normal 0 [facility] Comment on above: Performed By: #### P HO, BMP, CDP, MG ####[facility] [address] [place] [address])[phone] Director: Carlos Rowland MD Lymphocytes (Bld) [#/Vol] 1.23 10*3/uL Normal 1.10-3.70 [facility] Comment on above: Performed By: #### P HO, BMP, CDP, MG ####[address] [address] Lab Director: Carlos Rowland MD Lymphocytes/100 WBC (Bld) 14 % Low 24-43 [facility] Comment on above: Performed By: #### P HO, BMP, CDP, MG ####[address] [phone] Director: Carlos Rowland MD MCH (RBC) [Entitic mass] 29.5 pg Normal 25.2-33.5 [facility] Comment on above: Performed By: #### P HO, BMP, CDP, MG ####[place], [place] [address])[phone] Director: Carlos Rowland MD MCHC (RBC) [Mass/Vol] 30.4 g/dL Normal 28.4-34.8 [facility] Comment on above: Performed By: #### P HO, BMP, CDP, MG ####[place], [place] [address])[phone] Director: Carlos Rowland MD MCV (RBC) [Entitic vol] 97.0 fL Normal 82.6-102.9 [facility] Comment on above: Performed By: #### P HO, BMP, CDP, MG ####[place], [place] [address])[phone] Director: Carlos Rowland MD Monocytes (Bld) [#/Vol] 0.85 10*3/uL Normal 0.10-1.20 [facility] Comment on above: Performed By: #### P HO, BMP, CDP, MG ####[address] [address])[phone] Director: Carlos Rowland MD Monocytes/100 WBC (Bld) 10 % Normal 3-12 [facility] Comment on above: Performed By: #### P HO, BMP, CDP, MG ####[address], [place] [phone])[phone] Director: Carlos Rowland MD Neutrophil (Seg) 72 % High 36-65 [facility] Comment on above: Performed By: #### P HO, BMP, CDP, MG ####[facility] [address]cmgsa65[address] [place], [place] [phone] Director: Carlos Rowland MD NRBC Automated 0.0 per 100 WBC Normal 0.0 [facility] Comment on above: Performed By: #### P HO, BMP, CDP, MG ####[facility] [address] [place], [place] [phone])[phone] Director: Carlos Rowland MD Platelet mean volume (Bld) [Entitic vol] 9.9 fL Normal 8.1-13.5 [facility] Comment on above: Performed By: #### P HO, BMP, CDP, MG ####[facility] [address] [place] [address] [id number])[phone] Director: Carlos Rowland MD Platelets (Bld) [#/Vol] 206 10*3/uL Normal 138-453 [facility] Comment on above: Performed By: #### P HO, BMP, CDP, MG ####[facility] [address] [place] [address] [id number])[phone] Director: Carlos Rowland MD RBC (Bld) [#/Vol] 4.03 10*6/uL Low 4.21-5.77 [facility] Comment on above: Performed By: #### P HO, BMP, CDP, MG ####[facility] [address]xf[address]owmlm[address] [place], [place] [phone] Director: Carlos Rowland MD RBC morphology finding Nom (Bld) ANISOCYTOSIS PRESENT Normal [facility] Comment on above: Performed By: #### P HO, BMP, CDP, MG ####[facility] [address]arc[address] [place], [place] [phone] Director: Carlos Rowland MD WBC (Bld) [#/Vol] 9.0 10*3/uL Normal 3.5-11.3 [facility] Comment on above: Performed By: #### P HO, BMP, CDP, MG ####[facility] [address]fy[address] [place] [address] Lab Director: Carlos Rowland MD Glucose,Whole Bloodon 2023 Glucose [Mass/Vol] 175 mg/dL High 75-110 [facility] Glucose [Mass/Vol] 169 mg/dL High 75-110 [facility] Glucose [Mass/Vol] 273 mg/dL High 75-110 [facility] Glucose [Mass/Vol] 157 mg/dL High 75-110 [facility] Glucose [Mass/Vol] 158 mg/dL High 75-110 [facility] Magnesiumon 07-15-2023 Magnesium [Mass/Vol] 2.2 mg/dL Normal 1.6-2.6 [facility] Comment on above: Performed By: #### P HO, BMP, CDP, MG ####[facility] [address] [place] [address] Lab Director: Carlos Rowland MD PTon 07-15-2023 INR Coag (PPP) [Relative time] 1.4 {INR} Normal [facility] Comment on above: Result Comment: Therapeutic Range: Moderate Anticoagulant Intensity: INR = 2.0-3.0 High Anticoagulant Intensity: INR = 2.5-3.5 Performed By: #### P T #### [facility] [address] [place] [address] [employer]: Carlos Rowland MD PT Coag (PPP) [Time] 16.5 s High 11.7-14.9 [facility] Comment on above: Performed By: #### P T #### [facility] [address] [place] [address] [employer]: Carlos Rowland MD Phosphorus, Inorg.on 024 Phosphorus, Inorg. 3.8 mg/dL Normal 2.5-4.5 [facility] Comment on above: Performed By: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 #### [facility] [address] [place] [address] Dr. Obdulia Ng NEUT # 6.3 103/ul Normal 1.4-6.5 [facility] Comment on above: Performed By: #### P OCGLUC #### [facility] [address] [place] [address] Dr. Obdulia Ng Neutrophils/100 WBC (Bld) 79.5 % Critically high 43.0-75.0 [facility] Comment on above: Performed By: #### P OCGLUC #### [facility] [address] [place] [address] Dr. Obdulia Ng Platelet mean volume (Bld) [Entitic vol] 9.7 fL Normal 9.5-13.5 [facility] Comment on above: Performed By: #### P OCGLUC #### [facility] [address] [place] [address] Dr. Obdulia Ng PLT 215 103/ul Normal 150-450 [facility] Comment on above: Performed By: #### P OCGLUC #### [facility] [address] [place] [address] Dr. Obdulia Ng RBC 4.12 106/ul Critically low 4.70-6.10 [facility] Comment on above: Performed By: #### P OCGLUC #### [facility] [address] [place] [address] Dr. Obdulia Ng WBC 7.9 103/ul Normal 4.0-11.0 [facility] Comment on above: Performed By: #### P OCGLUC #### [facility] [address] [place] [address] ABD/PELVIS WO CONon 09-07 CT ABD/PELVIS WO CON EXAMINATION: CT ABD /PELVIS WO CON HISTORY: Backache ; low back pain; bilateral lower extremity weakness; no known injury COMPARISON: CTA chest 07/03/2019 TECHNIQUE: Axial, Coronal, and Sagittal images were obtained without and/or with IV contrast as indicated by examination type. Dose reduction techniques were achieved by using automated exposure control and/or adjustment of mA and/or kV according to patient size and/or use of iterative reconstruction technique. FINDINGS: LUNG BASES: 15 x 11 x 9 mm spiculated nodule versus infiltrate within posterior lateral aspect of lingula near the diaphragm. Cardiomegaly; no pericardial effusion. LIVER: No enlargement, atrophy, suspicious density, or significant focal lesion. BILIARY: No dilatation or calcification. PANCREAS: No lesion, fluid collection, or abnormal duct dilatation. SPLEEN: No enlargement or focal lesion. ADRENALS: 1.9 cm right adrenal mass with areas of fat density favoring a benign adenoma. KIDNEYS: No mass, obstruction, or calcification. BOWEL/MESENTERY: Numerous diverticula of the sigmoid colon without acute inflammatory changes. No visible mass, obstruction, or bowel wall thickening. Normal appendix. AORTA/VASCULAR: Moderate atherosclerotic disease. No aneurysm or dissection. RETROPERITONEUM: No mass or adenopathy. LYMPH NODES: No adenopathy. URINARY BLADDER: No visible focal wall thickening, lesion, or calculus. PELVIC ORGANS: Enlarged prostate protruding into base of bladder. ABDOMINAL WALL: No mass or hernia. BONES: Mild avascular necrosis adjacent the weightbearing surface of the right femoral head. L4-L5 moderate degenerative disc disease and mild grade 1 anterolisthesis. L5-S1 marked degenerative disc disease. Moderate degenerative facet arthropathy of lower lumbar spine. OTHER: Negative. IMPRESSION: 1.Spiculated density within lingula; neoplasm versus infiltrate versus scarring. Follow-up chest CT with IV contrast and full lung expansion is recommended for further evaluation. 2. Degenerative changes of lower lumbar spine likely contribute to patient's symptoms. 3. Colonic diverticulosis. 4. Enlarged prostate. 5. 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 No fracture. Electronically authenticated by: BROOKS STEPHENSNO Date: 2022-09-07 14:10 Normal [facility] PROF CHEM 8 (BAS METB)on Anion gap [Moles/Vol] 12.5 mmol/L Normal [facility] Comment on above: Performed By: #### P OCGLUC #### [facility] [address] [place] [address] Dr. Obdulia Ng Calcium [Mass/Vol] 8.8 mg/dL Normal 8.5-10.1 [facility] Comment on above: Performed By: #### P OCGLUC #### [facility] [address] [address] [address] Obdulia Ng Chloride [Moles/Vol] 103 mmol/L Normal 98-107 [facility] Comment on above: Performed By: #### P OCGLUC #### [facility] [address] [address] [address] Obdulia Ng CO2 [Moles/Vol] 27.3 mmol/L Normal 21.0-32.0 [facility] Comment on above: Performed By: #### P OCGLUC #### [facility] [address] [place] [address] Dr. Obdulia Ng Creatinine [Mass/Vol] 1.42 mg/dL Critically high 0.70-1.30 [facility] Comment on above: Performed By: #### P OCGLUC #### [facility] [address] [place] [address] Dr. Obdulia Ng EGFR-AF TONGAN 58 mL/min/1.73m2 Critically low >=60 [facility] Comment on above: Performed By: #### P OCGLUC #### [facility] [address] [place] [address] Dr. Obdulia Ng EGFR-NON AF TONGAN 48 mL/min/1.73m2 Critically low >=60 [facility] Comment on above: Performed By: #### P OCGLUC #### [facility] [address] [address] [address] Obdulia Ng Glucose [Mass/Vol] 173 mg/dL Critically high 74-106 [facility] Comment on above: Performed By: #### P OCGLUC #### [facility] [address] [place] [address] Dr. Obdulia Ng Potassium [Moles/Vol] 4.8 mmol/L Normal 3.5-5.1 [facility] Comment on above: Performed By: #### P OCGLUC #### [facility] [address] [place] [address] Dr. Obdulia Ng Sodium [Moles/Vol] 138 mmol/L Normal 136-145 [facility] Comment on above: Performed By: #### P OCGLUC #### [facility] [address] [place] [address] Dr. Obdulia Ng Urea nitrogen [Mass/Vol] 25.0 mg/dL Critically high 7.0-18.0 [facility] Comment on above: Performed By: #### P OCGLUC #### [facility] [address] [place] [address] Dr. Obdulia Ng Urea nitrogen/Creatinine [Mass ratio] 17.6 mg/mg Normal [facility] Comment on above: Performed By: #### P OCGLUC #### [facility] [address] [place] [address] Dr. Obdulia Ng PROTIMEon 09-07-2022 INR Coag (PPP) [Relative time] 1.87 {INR} Normal [facility] Comment on above: Performed By: #### P TT, PT #### [facility] [address] [place] [address] Dr. Obdulia Ng INR GUIDELINES SEE BELOW Normal [facility] Comment on above: Result Comment: BRAD RED INR: 2.0 - 3.0 CONDITIONS NOT LISTED BELOW 2.5 - 3.5 FOR PROSTHETIC HEART VALVE REPLACEMENT 2.5 - 3.5 RECURRENT THROMBOSIS Performed By: #### P TT, PT #### [facility] [address] [place] [address] Dr. Obdulia Ng PT Coag (PPP) [Time] 19.1 s Critically high 9.0-11.6 [facility] Comment on above: Performed By: #### P TT, PT #### [facility] [address] [place] [address] Dr. Obdulia Ng PTTon 09-07-2022 aPTT Coag (Bld) [Time] 29.9 s Normal 22.3-36.2 [facility] Comment on above: Performed By: #### P TT, PT #### [facility] [address] [place] [address] Dr. Obdulia Ng 36on 07-13-2022 36 Called patient at th e request of Dr. Rojas to see if he was willing to set up either another apt with Dr. Cabral and/or ICD implant. He was very rude and belligerent and kept questioning my reason for calling. He said all that device is going to do is cost me money . He kept telling me how his mother's pacemaker was the reason she and he did not want one. I told him he could continue to follow with Dr. Rojas and that I would not be calling him again. Normal [facility] BNPon 04-21-2022 Natriuretic peptide B (Bld) [Mass/Vol] 6682.0 pg/mL Critically high <=1,800.0 [facility] Comment on above: Performed By: #### P OCGLUC #### [facility] [address] [place] [address] Dr. Obdulia Ng CBC AUTO DIFFon 04-21-2022 BASO # 0.1 103/ul Normal 0.0-0.1 [facility] Comment on above: Performed By: #### P OCGLUC #### [facility] [address] [place] [address] Dr. Obdulia Ng Basophils/100 WBC (Bld) 1.3 % Normal 0.2-2.0 [facility] Comment on above: Performed By: #### P OCGLUC #### [facility] [address] [place] [address] Dr. Obdulia Ng EO # 0.1 103/ul Normal 0.0-0.7 [facility] Comment on above: Performed By: #### P OCGLUC #### [facility] [address] [place] [address] Dr. Obdulia Ng Eosinophils/100 WBC (Bld) 1.1 % Normal 0.9-7.0 [facility] Comment on above: Performed By: #### P OCGLUC #### [facility] [address] [place] [address] Dr. Obdulia Ng Erythrocyte distribution width (RBC) [Ratio] 15.7 % Critically high 11.0-15.0 [facility] Comment on above: Performed By: #### P OCGLUC #### [facility] [address] [address] [address] Obdulia Ng Hematocrit (Bld) [Volume fraction] 39.8 % Critically low 42.0-54.0 [facility] Comment on above: Performed By: #### P OCGLUC #### [facility] [address] [place] [address] Dr. Obdulia Ng Hemoglobin (Bld) [Mass/Vol] 13.3 g/dL Critically low 14.0-18.0 [facility] Comment on above: Performed By: #### P OCGLUC #### [facility] [address] [place] [address] Dr. Obdulia Ng IG # 0.02 10e3/ul Normal 0.00-0.03 [facility] Comment on above: Performed By: #### P OCGLUC #### [facility] [address] [place] [address] Dr. Obdulia Ng IG % 0.2 % Normal 0.0-0.5 [facility] Comment on above: Performed By: #### P OCGLUC #### [facility] [address] [place] [address] Dr. Obdulia Ng LYMPH # 1.5 103/ul Normal 1.2-3.8 [facility] Comment on above: Performed By: #### P OCGLUC #### [facility] [address] [place] [address] Dr. Obdulia Ng Lymphocytes/100 WBC (Bld) 18.0 % Critically low 20.5-60.0 [facility] Comment on above: Performed By: #### P OCGLUC #### [facility] [address] [place] [address] Dr. Obdulia Ng MANUAL DIFF REQ NO Normal [facility] Comment on above: Performed By: #### P OCGLUC #### [facility] [address] [place] [address] Dr. Obdulia Ng MCH (RBC) [Entitic mass] 31.1 pg Normal 25.9-34.0 [facility] Comment on above: Performed By: #### P OCGLUC #### [facility] [address] [address] [address] Obdulia Ng MCHC (RBC) [Mass/Vol] 33.4 g/dL Normal 29.9-35.2 [facility] Comment on above: Performed By: #### P OCGLUC #### [facility] [address] [place] [address] Dr. Obdulia Ng MCV (RBC) [Entitic vol] 93.0 fL Normal 80.0-94.0 [facility] Comment on above: Performed By: #### P OCGLUC #### [facility] [address] [place] [address] Dr. Obdulia Ng MONO # 1.0 103/ul Critically high 0.3-0.8 [facility] Comment on above: Performed By: #### P OCGLUC #### [facility] [address] [place] [address] Dr. Obdulia Ng Monocytes/100 WBC (Bld) 12.1 % Critically high 1.7-12.0 [facility] Comment on above: Performed By: #### P OCGLUC #### [facility] [address] [place] [address] Dr. Obdulia Ng NEUT # 5.5 103/ul Normal 1.4-6.5 [facility] Comment on above: Performed By: #### P OCGLUC #### [facility] [address] [place] [address] Dr. Obdulia Ng Neutrophils/100 WBC (Bld) 67.3 % Normal 43.0-75.0 [facility] Comment on above: Performed By: #### P OCGLUC #### [facility] [address] [place] [address] Dr. Obdulia Ng Platelet mean volume (Bld) [Entitic vol] 9.7 fL Normal 9.5-13.5 [facility] Comment on above: Performed By: #### P OCGLUC #### [facility] [address] [place] [address] Dr. Obdulia Ng PLT 265 103/ul Normal 150-450 [facility] Comment on above: Performed By: #### P OCGLUC #### [facility] [address] [place] [address] Dr. Obdulia Ng RBC 4.28 106/ul Critically low 4.70-6.10 [facility] Comment on above: Performed By: #### P OCGLUC #### [facility] [address] [place] [address] Dr. Obdulia Ng WBC 8.2 103/ul Normal 4.0-11.0 [facility] Comment on above: Performed By: #### P OCGLUC #### [facility] [address] [place] [address] Dr. Obdulia Ng PROF CHEM 8 (BAS METB)on Anion gap [Moles/Vol] 11.7 mmol/L Normal [facility] Comment on above: Performed By: #### P TT, PT #### [facility] [address] [place] [address] Dr. Obdulia Ng Calcium [Mass/Vol] 8.3 mg/dL Critically low 8.5-10.1 [facility] Comment on above: Performed By: #### P TT, PT #### [facility] [address] [place] [address] Dr. Obdulia Ng Chloride [Moles/Vol] 100 mmol/L Normal 98-107 [facility] Comment on above: Performed By: #### P TT, PT #### [facility] [address] [place] [address] Dr. Obdulia Ng CO2 [Moles/Vol] 32.5 mmol/L Critically high 21.0-32.0 [facility] Comment on above: Performed By: #### P TT, PT #### [facility] [address] [place] [address] Dr. Obdulia Ng Creatinine [Mass/Vol] 1.42 mg/dL Critically high 0.70-1.30 [facility] Comment on above: Performed By: #### P TT, PT #### [facility] [address] [place] [address] Dr. Obdulia Ng EGFR-AF TONGAN 58 mL/min/1.73m2 Critically low >=60 [facility] Comment on above: Performed By: #### P TT, PT #### [facility] [address] [address] [address] Obdulia Ng EGFR-NON AF TONGAN 48 mL/min/1.73m2 Critically low >=60 [facility] Comment on above: Performed By: #### P TT, PT #### [facility] [address] [address] [address] Obdulia Ng Glucose [Mass/Vol] 118 mg/dL Critically high 74-106 [facility] Comment on above: Performed By: #### P TT, PT #### [facility] [address] [address] [address] Obdulia Ng Potassium [Moles/Vol] 3.2 mmol/L Critically low 3.5-5.1 [facility] Comment on above: Performed By: #### P TT, PT #### [facility] [address] [address] [address] Obdulia Ng Sodium [Moles/Vol] 141 mmol/L Normal 136-145 [facility] Comment on above: Performed By: #### P TT, PT #### [facility] [address] [address] [address] Obdulia Ng Urea nitrogen [Mass/Vol] 30.0 mg/dL Critically high 7.0-18.0 [facility] Comment on above: Performed By: #### P TT, PT #### [facility] [address] [address] [address] Obdulia Ng Urea nitrogen/Creatinine [Mass ratio] 21.1 mg/mg Normal [facility] Comment on above: Performed By: #### P TT, PT #### [facility] [address] [address] [address] Obdulia Ng PROTIMEon 04-21-2022 INR Coag (PPP) [Relative time] 2.09 {INR} Normal [facility] Comment on above: Performed By: #### C VDTBH #### [facility] [address] [address] [address] Obdulia Ng INR GUIDELINES SEE BELOW Normal [facility] Comment on above: Result Comment: BRAD RED INR: 2.0 - 3.0 CONDITIONS NOT LISTED BELOW 2.5 - 3.5 FOR PROSTHETIC HEART VALVE REPLACEMENT 2.5 - 3.5 RECURRENT THROMBOSIS Performed By: #### C VDTBH #### [facility] [address] [place] [address] Dr. Obdulia Ng PT Coag (PPP) [Time] 21.5 s Critically high 9.0-11.6 [facility] Comment on above: Performed By: #### C VDTBH #### [facility] [address] [place] [address] Dr. Obdulia Ng BNPon 04-20-2022 Natriuretic peptide B (Bld) [Mass/Vol] 83978.0 pg/mL Critically high <=1,800.0 [facility] Comment on above: Performed By: #### C VDTBH #### [facility] [address] [place] [address] Dr. Obdulia Ng CBC AUTO DIFFon 04-20-2022 BASO # 0.1 103/ul Normal 0.0-0.1 [facility] Comment on above: Performed By: #### C VDTBH #### [facility] [address] [place] [address] Dr. Obdulia Ng Basophils/100 WBC (Bld) 1.1 % Normal 0.2-2.0 [facility] Comment on above: Performed By: #### C VDTBH #### [facility] [address] [place] [address] Dr. Obdulia Ng EO # 0.1 103/ul Normal 0.0-0.7 [facility] Comment on above: Performed By: #### C VDTBH #### [facility] [address] [place] [address] Dr. Obdulia Ng Eosinophils/100 WBC (Bld) 1.1 % Normal 0.9-7.0 [facility] Comment on above: Performed By: #### C VDTBH #### [facility] [address] [place] [address] Dr. Obdulia Ng Erythrocyte distribution width (RBC) [Ratio] 15.7 % Critically high 11.0-15.0 [facility] Comment on above: Performed By: #### C VDTBH #### [facility] [address] [place] [address] Dr. Obdulia Ng Hematocrit (Bld) [Volume fraction] 37.6 % Critically low 42.0-54.0 [facility] Comment on above: Performed By: #### C VDTBH #### [facility] [address] [place] [address] Dr. Obdulia Ng Hemoglobin (Bld) [Mass/Vol] 12.2 g/dL Critically low 14.0-18.0 [facility] Comment on above: Performed By: #### C VDTBH #### [facility] [address] [place] [address] Dr. Obdulia Ng IG # 0.03 10e3/ul Normal 0.00-0.03 [facility] Comment on above: Performed By: #### C VDTBH #### [facility] [address] [place] [address] Dr. Obdulia Ng IG % 0.4 % Normal 0.0-0.5 [facility] Comment on above: Performed By: #### C VDTBH #### [facility] [address] [place] [address] Dr. Obdulia Ng LYMPH # 1.7 103/ul Normal 1.2-3.8 [facility] Comment on above: Performed By: #### C VDTBH #### [facility] [address] [place] [address] Dr. Obdulia Ng Lymphocytes/100 WBC (Bld) 22.2 % Normal 20.5-60.0 [facility] Comment on above: Performed By: #### C VDTBH #### [facility] [address] [place] [address] Dr. Obdulia Ng MANUAL DIFF REQ NO Normal [facility] Comment on above: Performed By: #### C VDTBH #### [facility] [address] [place] [address] Dr. Obdulia Ng MCH (RBC) [Entitic mass] 31.0 pg Normal 25.9-34.0 [facility] Comment on above: Performed By: #### C VDTBH #### [facility] [address] [place] [address] Dr. Obdulia Ng MCHC (RBC) [Mass/Vol] 32.4 g/dL Normal 29.9-35.2 [facility] Comment on above: Performed By: #### C VDTBH #### [facility] [address] [place] [address] Dr. Obdulia Ng MCV (RBC) [Entitic vol] 95.4 fL Critically high 80.0-94.0 [facility] Comment on above: Performed By: #### C VDTBH #### [facility] [address] [place] [address] Dr. Obdulia Ng MONO # 0.6 103/ul Normal 0.3-0.8 [facility] Comment on above: Performed By: #### C VDTBH #### [facility] [address] [place] [address] Dr. Obdulia Ng Monocytes/100 WBC (Bld) 8.4 % Normal 1.7-12.0 [facility] Comment on above: Performed By: #### C VDTBH #### [facility] [address] [place] [address] Dr. Obdulia Ng NEUT # 5.1 103/ul Normal 1.4-6.5 [facility] Comment on above: Performed By: #### C VDTBH #### [facility] [address] [place] [address] Dr. Obdulia Ng Neutrophils/100 WBC (Bld) 66.8 % Normal 43.0-75.0 [facility] Comment on above: Performed By: #### C VDTBH #### [facility] [address] [place] [address] Dr. Obdulia Ng Platelet mean volume (Bld) [Entitic vol] 9.8 fL Normal 9.5-13.5 [facility] Comment on above: Performed By: #### C VDTBH #### [facility] [address] [address] [address] Obdulia Ng PLT 268 103/ul Normal 150-450 [facility] Comment on above: Performed By: #### C VDTBH #### [facility] [address] [address] [address] Obdulia Ng RBC 3.94 106/ul Critically low 4.70-6.10 [facility] Comment on above: Performed By: #### C VDTBH #### [facility] [id number] Obdulia Ng WBC 7.6 103/ul Normal 4.0-11.0 [facility] Comment on above: Performed By: #### C VDTBH #### [facility] [address] [address] [address] Obdulia Ng ECHO LIMITED STUDYon 022 ECHO LIMITED STUDY Patient: JORDANA BERGMAN Exam Date: 04/20/2022 : 1940 Gender:M Ordering : DR BRIDGET ROJAS . Admission #: [id number] Family : Order #: [id number] CLICK HERE TO VIEW EXAM ECHOCARDIOGRAM REPORT PROCEDURE: CARDIO PULMONARY ECHO LIMITED STUDY INDICATIONS: Shortness of breath, CHF COMPARISON: None. DESCRIPTION: Limited ECHOCARDIOGRAM Real-time transthoracic echocardiography with 2D and M-mode performed. QUALITY: Technical quality was adequate. LEFT VENTRICLE: Mild dilatation. Mild concentric left ventricular hypertrophy. Global left ventricular systolic function is severely decreased. Visual estimation of left ventricular ejection fraction is 15-20%. 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 LEFT ATRIUM: Severe dilatation. RIGHT ATRIUM: Moderate dilatation. RIGHT VENTRICLE: Mild dilatation. Systolic function appears reduced. TRICUSPID VALVE: Normal mobility and thickness. MITRAL VALVE: Normal mobility and thickness. AORTIC VALVE: Normal trileaflet appearance. Thickened aortic valve. AORTIC ROOT: Normal diameter and appearance. PULMONIC VALVE: Normal thickness and mobility. PERICARDIUM: No evidence of pericardial effusion. IVC: Mild dilatation measuring 2.3cm with partial collapse with inspiration. PLEURA: Moderate pleural effusion. CONCLUSION: Global left ventricular systolic function is severely decreased; visually estimated ejection fraction is 15 to 20%. 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 Biatrial enlargement. Mild left ventricle hypertrophy. The left ventricle is mildly dilated. Right ventricle is dilated with reduced systolic function. A pleural effusion is seen. A limited echocardiogram was performed. Adult Echocardiography Procedure Report Left Ventricle LVEDD (3.7 - 5.6 cm): 6.23 cm LVESD (2.2 - 4.0 cm): 5.59 cm LVIVS thickness (0.6 - 1.2 cm): 1.16 cm LVPW thickness (0.5 - 1.0 cm): 1.14 cm LVOT Diameter 2.21 cm Left Ventricular Ejection Fraction: 22.18 %, 22.18 % Left Atrium LA Volume Index (2D A2C): 142.93 ml, 142.93 ml Left Atrium Systolic Dimension: 5.31 cm Mitral Valve Right Ventricle RV Internal Diastolic Dimension: 3.88 cm Aorta AO Root Diam: 3.75 cm Aortic Valve Tricuspid Valve Pulmonic Valve Right Atrium Right Atrium Systolic Pressure: 115.05 ml, 115.05 ml Dictated by: Johnie Morales M.D. on 04/21/2022 at 14:23 Approved by: Johnie Morales M.D. on 04/21/2022 at 14:27 Normal [facility] POINT OF CARE GLUCOSEon 03-24 Glucose [Mass/Vol] 146 mg/dL Critically high -106 [facility] Comment on above: Performed By: #### T SH, T4 #### [facility] [address] [address] [address] Obdulia Ng Glucose [Mass/Vol] 177 mg/dL Critically high -106 [facility] Comment on above: Performed By: #### P OCGLUC #### [facility] [address] [address] [address] Obdulia Ng Glucose [Mass/Vol] 164 mg/dL Critically high -106 [facility] Comment on above: Performed By: #### P OCGLUC #### [facility] [address] [address] [address] Obdulia Ng PROF CHEM 8 (BAS METB)on Anion gap [Moles/Vol] 11.2 mmol/L Normal [facility] Comment on above: Performed By: #### C VDTBH #### [facility] [address] [address] [address] Obdulia Ng Calcium [Mass/Vol] 8.5 mg/dL Normal 8.5-10.1 [facility] Comment on above: Performed By: #### C VDTBH #### [facility] [address] [address] [address] Obdulia Ng Chloride [Moles/Vol] 104 mmol/L Normal 98-107 [facility] Comment on above: Performed By: #### C VDTBH #### [facility] [address] [address] [address] Obdulia Ng CO2 [Moles/Vol] 28.6 mmol/L Normal 21.0-32.0 [facility] Comment on above: Performed By: #### C VDTBH #### [facility] [address] [place] [address] Dr. Obdulia Ng Creatinine [Mass/Vol] 1.32 mg/dL Critically high 0.70-1.30 [facility] Comment on above: Performed By: #### C VDTBH #### [facility] [address] [place] [address] Dr. Obdulia Ng EGFR-AF TONGAN >60 Normal >=60 [facility] Comment on above: Performed By: #### C VDTBH #### [facility] [address] [place] [address] Dr. Obdulia Ng EGFR-NON AF TONGAN 52 mL/min/1.73m2 Critically low >=60 [facility] Comment on above: Performed By: #### C VDTBH #### [facility] [address] [place] [address] Dr. Obdulia Ng Glucose [Mass/Vol] 92 mg/dL Normal 74-106 [facility] Comment on above: Performed By: #### C VDTBH #### [facility] [address] [place] [address] Dr. Obdulia Ng Potassium [Moles/Vol] 3.8 mmol/L Normal 3.5-5.1 [facility] Comment on above: Performed By: #### C VDTBH #### [facility] [address] [place] [address] Dr. Obdulia Ng Sodium [Moles/Vol] 140 mmol/L Normal 136-145 [facility] Comment on above: Performed By: #### C VDTBH #### [facility] [address] [place] [address] Dr. Obdulia Ng Urea nitrogen [Mass/Vol] 24.0 mg/dL Critically high 7.0-18.0 [facility] Comment on above: Performed By: #### C VDTBH #### [facility] [address] [place] [address] Dr. Obdulia Ng Urea nitrogen/Creatinine [Mass ratio] 18.2 mg/mg Normal [facility] Comment on above: Performed By: #### C VDTBH #### [facility] [address] [place] [address] Dr. Obdulia Ng PROTIMEon 04-20-2022 INR Coag (PPP) [Relative time] 2.11 {INR} Normal [facility] Comment on above: Performed By: #### C VDTBH #### [facility] [address] [place] [address] Dr. Obdulia Ng INR GUIDELINES SEE BELOW Normal [facility] Comment on above: Result Comment: BRAD RED INR: 2.0 - 3.0 CONDITIONS NOT LISTED BELOW 2.5 - 3.5 FOR PROSTHETIC HEART VALVE REPLACEMENT 2.5 - 3.5 RECURRENT THROMBOSIS Performed By: #### C VDTBH #### [facility] [address] [place] [address] Dr. Obdulia Ng PT Coag (PPP) [Time] 21.7 s Critically high 9.0-11.6 [facility] Comment on above: Performed By: #### C VDTBH #### [facility] [address] [place] [address] Dr. Obdulia Ng BNPon 04-19-2022 Natriuretic peptide B (Bld) [Mass/Vol] 75025.0 pg/mL Critically high <=1,800.0 [facility] Comment on above: Performed By: #### P OCGLUC #### [facility] [address] [place] [address] Dr. Obdulia Ng CBC AUTO DIFFon 04-19-2022 BASO # 0.1 103/ul Normal 0.0-0.1 [facility] Comment on above: Performed By: #### C VDTBH #### [facility] [address] [place] [address] Dr. Obdulia Ng Basophils/100 WBC (Bld) 0.8 % Normal 0.2-2.0 [facility] Comment on above: Performed By: #### C VDTBH #### [facility] [address] [place] [address] Dr. Obdulia Ng EO # 0.0 103/ul Normal 0.0-0.7 [facility] Comment on above: Performed By: #### C VDTBH #### [facility] [address] [place] [address] Dr. Obdulia gN Eosinophils/100 WBC (Bld) 0.4 % Critically low 0.9-7.0 [facility] Comment on above: Performed By: #### C VDTBH #### [facility] [address] [place] [address] Dr. Obdulia Ng Erythrocyte distribution width (RBC) [Ratio] 15.7 % Critically high 11.0-15.0 [facility] Comment on above: Performed By: #### C VDTBH #### [facility] [address] [place] [address] Dr. Obdulia Ng Hematocrit (Bld) [Volume fraction] 38.3 % Critically low 42.0-54.0 [facility] Comment on above: Performed By: #### C VDTBH #### [facility] [address] [place] [address] Dr. Obdulia Ng Hemoglobin (Bld) [Mass/Vol] 12.7 g/dL Critically low 14.0-18.0 [facility] Comment on above: Performed By: #### C VDTBH #### [facility] [address] [place] [address] Dr. Obdulia Ng IG # 0.02 10e3/ul Normal 0.00-0.03 [facility] Comment on above: Performed By: #### C VDTBH #### [facility] [address] [place] [address] Dr. Obdulia Ng IG % 0.2 % Normal 0.0-0.5 [facility] Comment on above: Performed By: #### C VDTBH #### [facility] [address] [place] [address] Dr. Obdulia Ng LYMPH # 1.3 103/ul Normal 1.2-3.8 [facility] Comment on above: Performed By: #### C VDTBH #### [facility] [address] [place] [address] Dr. Obdulia Ng Lymphocytes/100 WBC (Bld) 13.4 % Critically low 20.5-60.0 [facility] Comment on above: Performed By: #### C VDTBH #### [facility] [address] [place] [address] Dr. Obdulia Ng MANUAL DIFF REQ NO Normal [facility] Comment on above: Performed By: #### C VDTBH #### [facility] [address] [place] [address] Dr. Obdulia Ng MCH (RBC) [Entitic mass] 31.3 pg Normal 25.9-34.0 [facility] Comment on above: Performed By: #### C VDTBH #### [facility] [address] [place] [address] Dr. Obdulia Ng MCHC (RBC) [Mass/Vol] 33.2 g/dL Normal 29.9-35.2 [facility] Comment on above: Performed By: #### C VDTBH #### [facility] [address] [place] [address] Dr. Obdulia Ng MCV (RBC) [Entitic vol] 94.3 fL Critically high 80.0-94.0 [facility] Comment on above: Performed By: #### C VDTBH #### [facility] [address] [place] [address] Dr. Obdulia Ng MONO # 0.8 103/ul Normal 0.3-0.8 [facility] Comment on above: Performed By: #### C VDTBH #### [facility] [address] [place] [address] Dr. Obdulia Ng Monocytes/100 WBC (Bld) 7.7 % Normal 1.7-12.0 [facility] Comment on above: Performed By: #### C VDTBH #### [facility] [address] [place] [address] Dr. Obdulia Ng NEUT # 7.7 103/ul Critically high 1.4-6.5 [facility] Comment on above: Performed By: #### C VDTBH #### [facility] [address] [place] [address] Dr. Obdulia Ng Neutrophils/100 WBC (Bld) 77.5 % Critically high 43.0-75.0 [facility] Comment on above: Performed By: #### C VDTBH #### [facility] [address] [place] [address] Dr. Obdulia Ng Platelet mean volume (Bld) [Entitic vol] 9.7 fL Normal 9.5-13.5 [facility] Comment on above: Performed By: #### C VDTBH #### [facility] [address] [place] [address] Dr. Obdulia Ng PLT 277 103/ul Normal 150-450 [facility] Comment on above: Performed By: #### C VDTBH #### [facility] [address] [place] [address] Dr. Obdulia Ng RBC 4.06 106/ul Critically low 4.70-6.10 [facility] Comment on above: Performed By: #### C VDTBH #### [facility] [address] [place] [address] Dr. Obdulia Ng WBC 10.0 103/ul Normal 4.0-11.0 [facility] Comment on above: Performed By: #### C VDTBH #### [facility] [address] [place] [address] Dr. Obdulia Ng Covid-19 PCR (CVDTB)on 03-24 SARS-CoV-2 (COVID-19) RNA SHELBY+probe Ql (Unsp spec) Not detected Normal NOT DETECTED [facility] Comment on above: Result Comment: When diagnostic testing is negative, the possibility of a false negative should be considered in the context of a patient's recent exposures and the presence of clinical signs and symptoms consistent with SARS-CoV-2. This test is not yet approved or cleared by the [place] FDA. When there are no FDA-approved or cleared tests available, and other criteria are met, FDA can make tests available under an emergency access mechanism called an Emergency Use Authorization (EUA). The EUA for this test is supported by the [employer] Mechanic of Health and Human Service's declaration that circumstances exist to justify the emergency use of in vitro diagnostics for the detection and/or diagnosis of the virus that causes COVID-19. This EUA will remain in effect for the duration of the COVID-19 declaration justifying emergency of IVDs, unless it is terminated or revoked by the FDA (after which the test may no longer be used). Performed By: #### C VDTBH #### [facility] [address] [place] [address] Dr. Obdulia Ng POINT OF CARE GLUCOSEon 03-24 Glucose [Mass/Vol] 206 mg/dL Critically high 74-106 [facility] Comment on above: Performed By: #### P OCGLUC #### [facility] [address] [place] [address] Dr. Obdulia Ng PROF 14(COMP METB)on 022 Albumin [Mass/Vol] 3.3 g/dL Critically low 3.4-5.0 [facility] Comment on above: Performed By: #### P OCGLUC #### [facility] [address] [place] [address] Dr. Obdulia Ng Albumin/Globulin [Mass ratio] 1.1 {ratio} Normal [facility] Comment on above: Performed By: #### P OCGLUC #### [facility] [address] [place] [address] Dr. Obdulia Ng ALP [Catalytic activity/Vol] 82 U/L Normal 46-116 [facility] Comment on above: Performed By: #### P OCGLUC #### [facility] [address] [address] [address] Obdulia Ng ALT [Catalytic activity/Vol] 42 U/L Normal 16-63 [facility] Comment on above: Performed By: #### P OCGLUC #### [facility] [address] [address] [address] Obdulia Ng Anion gap [Moles/Vol] 14.7 mmol/L Normal [facility] Comment on above: Performed By: #### P OCGLUC #### [facility] [address] [address] [address] Obdulia Ng AST [Catalytic activity/Vol] 19 U/L Normal 15-37 [facility] Comment on above: Performed By: #### P OCGLUC #### [facility] [address] [address] [address] Obdulia Ng Bilirubin [Mass/Vol] 1.4 mg/dL Critically high 0.2-1.0 [facility] Comment on above: Performed By: #### P OCGLUC #### [facility] [address] [address] [address] Obdulia Ng Calcium [Mass/Vol] 8.7 mg/dL Normal 8.5-10.1 [facility] Comment on above: Performed By: #### P OCGLUC #### [facility] [address] [address] [address] Obdulia Ng Chloride [Moles/Vol] 105 mmol/L Normal 98-107 [facility] Comment on above: Performed By: #### P OCGLUC #### [facility] [address] [address] [address] Obdulia Ng CO2 [Moles/Vol] 22.3 mmol/L Normal 21.0-32.0 [facility] Comment on above: Performed By: #### P OCGLUC #### [facility] [address] [address] [address] Obdulia Ng Creatinine [Mass/Vol] 1.20 mg/dL Normal 0.70-1.30 [facility] Comment on above: Performed By: #### P OCGLUC #### [facility] [address] [address] [address] Obdulia Ng EGFR-AF TONGAN >60 Normal >=60 [facility] Comment on above: Performed By: #### P OCGLUC #### [facility] [address] [address] [address] Obdulia Ng EGFR-NON AF TONGAN 58 mL/min/1.73m2 Critically low >=60 [facility] Comment on above: Performed By: #### P OCGLUC #### [facility] [address] [address] [address] Obdulia Ng Globulin (S) [Mass/Vol] 3.1 g/dL Normal [facility] Comment on above: Performed By: #### P OCGLUC #### [facility] [address] [address] [address] Obdulia Ng Glucose [Mass/Vol] 124 mg/dL Critically high 74-106 [facility] Comment on above: Performed By: #### P OCGLUC #### [facility] [address] [address] [address] Obdulia Ng Potassium [Moles/Vol] 4.0 mmol/L Normal 3.5-5.1 [facility] Comment on above: Performed By: #### P OCGLUC #### [facility] [address] [address] [address] Obdulia Ng Protein [Mass/Vol] 6.4 g/dL Normal 6.4-8.2 [facility] Comment on above: Performed By: #### P OCGLUC #### [facility] [address] [address] [address] Obdulia Ng Sodium [Moles/Vol] 138 mmol/L Normal 136-145 [facility] Comment on above: Performed By: #### P OCGLUC #### [facility] [address] [address] [address] Obdulia Ng Urea nitrogen [Mass/Vol] 23.0 mg/dL Critically high 7.0-18.0 [facility] Comment on above: Performed By: #### P OCGLUC #### [facility] [address] [place] [address] Dr. Obdulia Ng Urea nitrogen/Creatinine [Mass ratio] 19.2 mg/mg Normal [facility] Comment on above: Performed By: #### P OCGLUC #### [facility] [address] [place] [address] Dr. Obdulia Ng PROTIMEon 04-19-2022 INR Coag (PPP) [Relative time] 1.88 {INR} Normal [facility] Comment on above: Performed By: #### P TT, PT #### [facility] [address] [place] [address] Dr. Obdulia Ng INR GUIDELINES SEE BELOW Normal [facility] Comment on above: Result Comment: BRAD RED INR: 2.0 - 3.0 CONDITIONS NOT LISTED BELOW 2.5 - 3.5 FOR PROSTHETIC HEART VALVE REPLACEMENT 2.5 - 3.5 RECURRENT THROMBOSIS Performed By: #### P TT, PT #### [facility] [address] [place] [address] Dr. Obdulia Ng PT Coag (PPP) [Time] 19.5 s Critically high 9.0-11.6 [facility] Comment on above: Performed By: #### P TT, PT #### [facility] [address] [place] [address] Dr. Obdulia Ng PTTon 04-19-2022 aPTT Coag (Bld) [Time] 29.1 s Normal 22.3-36.2 [facility] Comment on above: Performed By: #### P TT, PT #### [facility] [address] [place] [address] Dr. Obdulia Ng TROPONIN, HIGH SENSITIVITYon 04-19-2022 HSTROP 20.6 pg/mL Normal 4.0-76.1 [facility] Comment on above: Result Comment: CUT- OFF POINTS HAVE BEEN ESTABLISHED BASED ON THE FOURTH UNIVERSAL DEFINITIONS OF MYOCARDIAL INFARCTION. THE UPPER REFERENCE LIMIT (URL) OF TROPONIN, DEFINED THE 99TH PERCENTILE OF cTnI DISTRIBUTION IN A REFERENCE POPULATION, HAS BEEN CONFIRMED THE DECISION THRESHOLD FOR [place] DIAGNOSIS. Performed By: #### P OCGLUC #### [facility] [address] [address] [address] Obdulai Ng XR CHEST 1 Von 04-19-2022 XR CHEST 1 V EXAMINATION: XR CHES T 1 V HISTORY: SHORTNESS OF BREATH COMPARISON: XR chest 02/17/2022 FINDINGS: LUNGS: Dense opacities obscuring the right diaphragm margin. Mild opacities obscuring the left lateral costophrenic angle. Underexpanded lungs. VASCULATURE: No increased pulmonary vasculature. PLEURA: Suspect small-moderate right pleural effusion. CARDIAC: No cardiomegaly or cardiac silhouette abnormality. MEDIASTINUM: No visible mass or adenopathy. BONES: No fracture or visible bone lesion. OTHER: Negative. IMPRESSION: 1. Suspect small right pleural effusion with mild-moderate right basilar infiltrates versus atelectasis. 2. Trace amount left basilar infiltrates versus atelectasis. Electronically authenticated by: BROOKS STEPHENSON Date: 2022-04-19 16:11 Normal [facility] PROTIMEon 04-03-2022 INR Coag (PPP) [Relative time] 4.04 {INR} Normal [facility] Comment on above: Performed By: #### P OCGLUC #### [facility] [address] [address] [address] Obdulia Ng INR GUIDELINES SEE BELOW Normal [facility] Comment on above: Result Comment: BRAD RED INR: 2.0 - 3.0 CONDITIONS NOT LISTED BELOW 2.5 - 3.5 FOR PROSTHETIC HEART VALVE REPLACEMENT 2.5 - 3.5 RECURRENT THROMBOSIS Performed By: #### P OCGLUC #### [facility] [address] [address] [address] Obdulia Ng PT Coag (PPP) [Time] 39.8 s Critically high 9.0-11.6 [facility] Comment on above: Performed By: #### P OCGLUC #### [facility] [address] [address] [address] Obdulia Ng Follow-Upon 03-12-2022 Follow-Up [id number] Joby Bergman 1940 M Date Provider Department Center 03/12/2022 PRAKASH PARSON [facility] Family History Problem Relation Age of Onset Heart attack Father Family Status - Relation Status Age at Father Level of Service:40437 [place] OFFICE/OUTPATIENT ESTABLISHED MOD MDM 30-39 MIN Normal [facility] Office Visiton 02-19-2022 Follow-up visit [id number] MadalynJoby matthew Trujillo 1940 M Date Provider [facility] 02/19/2022 PRAKASH PARSON [facility] Family History Problem Relation Age of Onset Heart attack Father Family Status - Relation Status Age at Father Level of Service:22294 [place] OFFICE/OUTPATIENT NEW HIGH MDM 60-74 MINUTES Reason for Visit and Comments: Atrial Fibrillation [80] Congestive Heart Failure [127] Palpitations [734314] Normal [facility] BNPon 02-18-2022 Natriuretic peptide B (Bld) [Mass/Vol] 4200.0 pg/mL Critically high <=1,800.0 [facility] Comment on above: Performed By: #### P TT, PT #### [facility] [address] [place] [address] Dr. Obdulia Ng CBC AUTO DIFFon 02-18-2022 BASO # 0.0 103/ul Normal 0.0-0.1 [facility] Comment on above: Performed By: #### C VDTBH #### [facility] [address] [place] [address] Dr. Obdulia Ng Basophils/100 WBC (Bld) 0.3 % Normal 0.2-2.0 [facility] Comment on above: Performed By: #### C VDTBH #### [facility] [address] [place] [address] Dr. Obdulia Ng EO # 0.0 103/ul Normal 0.0-0.7 [facility] Comment on above: Performed By: #### C VDTBH #### [facility] [address] [place] [address] Dr. Obdulia Ng Eosinophils/100 WBC (Bld) 0.1 % Critically low 0.9-7.0 [facility] Comment on above: Performed By: #### C VDTBH #### [facility] [address] [place] [address] Dr. Obdulia Ng Erythrocyte distribution width (RBC) [Ratio] 14.6 % Normal 11.0-15.0 [facility] Comment on above: Performed By: #### C VDTBH #### [facility] [address] [place] [address] Dr. Obdulia Ng Hematocrit (Bld) [Volume fraction] 37.7 % Critically low 42.0-54.0 [facility] Comment on above: Performed By: #### C VDTBH #### [facility] [address] [place] [address] Dr. Obdulia Ng Hemoglobin (Bld) [Mass/Vol] 12.3 g/dL Critically low 14.0-18.0 [facility] Comment on above: Performed By: #### C VDTBH #### [facility] [address] [place] [address] Dr. Obdulia Ng IG # 0.04 10e3/ul Critically high 0.00-0.03 [facility] Comment on above: Performed By: #### C VDTBH #### [facility] [address] [place] [address] Dr. Obdulia Ng IG % 0.4 % Normal 0.0-0.5 [facility] Comment on above: Performed By: #### C VDTBH #### [facility] [address] [place] [address] Dr. Obdulia Ng LYMPH # 1.1 103/ul Critically low 1.2-3.8 [facility] Comment on above: Performed By: #### C VDTBH #### [facility] [address] [place] [address] Dr. Obdulia Ng Lymphocytes/100 WBC (Bld) 11.0 % Critically low 20.5-60.0 [facility] Comment on above: Performed By: #### C VDTBH #### [facility] [address] [place] [address] Dr. Obdulia Ng MANUAL DIFF REQ NO Normal [facility] Comment on above: Performed By: #### C VDTBH #### [facility] [address] [place] [address] Dr. Obdulia Ng MCH (RBC) [Entitic mass] 31.1 pg Normal 25.9-34.0 [facility] Comment on above: Performed By: #### C VDTBH #### [facility] [address] [place] [address] Dr. Obdulia Ng MCHC (RBC) [Mass/Vol] 32.6 g/dL Normal 29.9-35.2 [facility] Comment on above: Performed By: #### C VDTBH #### [facility] [address] [place] [address] Dr. Obdulia Ng MCV (RBC) [Entitic vol] 95.4 fL Critically high 80.0-94.0 [facility] Comment on above: Performed By: #### C VDTBH #### [facility] [address] [place] [address] Dr. Obdulia Ng MONO # 1.4 103/ul Critically high 0.3-0.8 [facility] Comment on above: Performed By: #### C VDTBH #### [facility] [address] [place] [address] Dr. Obdulia Ng Monocytes/100 WBC (Bld) 14.4 % Critically high 1.7-12.0 [facility] Comment on above: Performed By: #### C VDTBH #### [facility] [address] [place] [address] Dr. Obdulia Ng NEUT # 7.2 103/ul Critically high 1.4-6.5 [facility] Comment on above: Performed By: #### C VDTBH #### [facility] [address] [place] [address] Dr. Obdulia Ng Neutrophils/100 WBC (Bld) 73.8 % Normal 43.0-75.0 [facility] Comment on above: Performed By: #### C VDTBH #### [facility] [address] [place] [address] Dr. Obdulia Ng Platelet mean volume (Bld) [Entitic vol] 9.9 fL Normal 9.5-13.5 [facility] Comment on above: Performed By: #### C VDTBH #### [facility] [address] [address] [address] Obdulia Ng PLT 220 103/ul Normal 150-450 [facility] Comment on above: Performed By: #### C VDTBH #### [facility] [address] [address] [address] Obdulia Ng RBC 3.95 106/ul Critically low 4.70-6.10 [facility] Comment on above: Performed By: #### C VDTBH #### [facility] [address] [address] [address] Obdulia Ng WBC 9.7 103/ul Normal 4.0-11.0 [facility] Comment on above: Performed By: #### C VDTBH #### [facility] [address] [place] [address] Dr. Obdulia Ng POINT OF CARE GLUCOSEon 01-22 Glucose [Mass/Vol] 127 mg/dL Critically high 74-106 [facility] Comment on above: Performed By: #### P OCGLUC #### [facility] [address] [place] [address] Dr. Obdulia Ng PROF CHEM 8 (BAS METB)on Anion gap [Moles/Vol] 11.7 mmol/L Normal [facility] Comment on above: Performed By: #### P TT, PT #### [facility] [address] [place] [address] Dr. Obdulia Ng Calcium [Mass/Vol] 8.2 mg/dL Critically low 8.5-10.1 [facility] Comment on above: Performed By: #### P TT, PT #### [facility] [address] [address] [address] Obdulia Ng Chloride [Moles/Vol] 105 mmol/L Normal 98-107 [facility] Comment on above: Performed By: #### P TT, PT #### [facility] [address] [place] [address] Dr. Obdulia Ng CO2 [Moles/Vol] 27.3 mmol/L Normal 21.0-32.0 [facility] Comment on above: Performed By: #### P TT, PT #### [facility] [address] [address] [address] Obdulia Ng Creatinine [Mass/Vol] 1.22 mg/dL Normal 0.70-1.30 [facility] Comment on above: Performed By: #### P TT, PT #### [facility] [address] [address] [address] Obdulia Ng EGFR-AF TONGAN >60 Normal >=60 [facility] Comment on above: Performed By: #### P TT, PT #### [facility] [address] [address] [address] Obdulia Ng EGFR-NON AF TONGAN 57 mL/min/1.73m2 Critically low >=60 [facility] Comment on above: Performed By: #### P TT, PT #### [facility] [address] [address] [address] Obdulia Ng Glucose [Mass/Vol] 129 mg/dL Critically high 74-106 [facility] Comment on above: Performed By: #### P TT, PT #### [facility] [address] [address] [address] Obdulia Ng Potassium [Moles/Vol] 4.0 mmol/L Normal 3.5-5.1 [facility] Comment on above: Performed By: #### P TT, PT #### [facility] [address] [address] [address] Obdulia Ng Sodium [Moles/Vol] 140 mmol/L Normal 136-145 [facility] Comment on above: Performed By: #### P TT, PT #### [facility] [address] [address] [address] Obdulia Ng Urea nitrogen [Mass/Vol] 31.0 mg/dL Critically high 7.0-18.0 [facility] Comment on above: Performed By: #### P TT, PT #### [facility] [address] [address] [address] Obdulia Ng Urea nitrogen/Creatinine [Mass ratio] 25.4 mg/mg Normal [facility] Comment on above: Performed By: #### P TT, PT #### [facility] [address] [place] [address] Dr. Obdulia Ng PROTIMEon 02-18-2022 INR Coag (PPP) [Relative time] 1.72 {INR} Normal [facility] Comment on above: Performed By: #### P OCGLUC #### [facility] [address] [place] [address] Dr. Obdulia Ng INR GUIDELINES SEE BELOW Normal [facility] Comment on above: Result Comment: BRAD RED INR: 2.0 - 3.0 CONDITIONS NOT LISTED BELOW 2.5 - 3.5 FOR PROSTHETIC HEART VALVE REPLACEMENT 2.5 - 3.5 RECURRENT THROMBOSIS Performed By: #### P OCGLUC #### [facility] [address] [place] [address] Dr. Obdulia Ng PT Coag (PPP) [Time] 17.9 s Critically high 9.0-11.6 [facility] Comment on above: Performed By: #### P OCGLUC #### [facility] [address] [place] [address] Dr. Obdulia Ng BNPon 02-17-2022 Natriuretic peptide B (Bld) [Mass/Vol] 23496.0 pg/mL Critically high <=1,800.0 [facility] Comment on above: Performed By: #### P OCGLUC #### [facility] [address] [place] [address] Dr. Obdulia Ng CBC W MANUAL DIFFon 02-18-20 22 ATYPICAL LYMPH # Normal [facility] Comment on above: Performed By: #### C VDTBH #### [facility] [address] [place] [address] Dr. Obdulia Ng ATYPICAL LYMPH % Normal [facility] Comment on above: Performed By: #### C VDTBH #### [facility] [address] [place] [address] Dr. Obdulia Ng BAND # 0.0 103/ul Normal 0.0-0.3 [facility] Comment on above: Performed By: #### C VDTBH #### [facility] [address] [place] [address] Dr. Obdulia Ng BAND % 0 % Normal 0-5 [facility] Comment on above: Performed By: #### C VDTBH #### [facility] [address] [place] [address] Dr. Obdulia Ng BASOM # 0.00 103/ul Normal 0.00-0.10 [facility] Comment on above: Performed By: #### C VDTBH #### [facility] [address] [place] [address] Dr. Obdulia Ng BASOM % 0.0 % Critically low 0.2-2.0 [facility] Comment on above: Performed By: #### C VDTBH #### [facility] [address] [place] [address] Dr. Obdulia Ng BLAST # Normal [facility] Comment on above: Performed By: #### C VDTBH #### [facility] [address] [place] [address] Dr. Obdulia Ng BLAST % Normal [facility] Comment on above: Performed By: #### C VDTBH #### [facility] [address] [place] [address] Dr. Obdulia Ng CORRECTED WBC Normal 4.0-11.0 [facility] Comment on above: Performed By: #### C VDTBH #### [facility] [address] [place] [address] Dr. Obdulia Ng EOS # 0.00 103/ul Normal 0.00-0.70 [facility] Comment on above: Performed By: #### C VDTBH #### [facility] [address] [place] [address] Dr. Obdulia Ng EOS% 0.0 % Critically low 0.9-7.0 [facility] Comment on above: Performed By: #### C VDTBH #### [facility] [address] [place] [address] Dr. Obudlia Ng HCT 35.8 % Critically low 42.0-54.0 [facility] Comment on above: Performed By: #### C VDTBH #### [facility] [address] [address] [address] Obdulia Ng HGB 11.7 g/dl Critically low 14.0-18.0 [facility] Comment on above: Performed By: #### C VDTBH #### [facility] [address] [address] [address] Obdulia Ng LYMPHM # 0.50 103/ul Critically low 1.20-3.80 [facility] Comment on above: Performed By: #### C VDTBH #### [facility] [address] [address] [address] Obdulia Ng LYMPHM% 6.0 % Critically low 20.5-60.0 [facility] Comment on above: Performed By: #### C VDTBH #### [facility] [address] [place] [address] Dr. Obdulia Ng MCH 31.6 pg Normal 25.9-34.0 [facility] Comment on above: Performed By: #### C VDTBH #### [facility] [address] [place] [address] Dr. Obdulia Ng MCHC 32.7 g/dl Normal 29.9-35.2 [facility] Comment on above: Performed By: #### C VDTBH #### [facility] [address] [place] [address] Dr. Obdulia Ng MCV 96.8 fL Critically high 80.0-94.0 [facility] Comment on above: Performed By: #### C VDTBH #### [facility] [address] [place] [address] Dr. Obdulia Ng METAMYELOCYTE # 0.2 103/ul Normal [facility] Comment on above: Performed By: #### C VDTBH #### [facility] [address] [place] [address] Dr. Obdulia Ng METAMYELOCYTE % 3 % Normal [facility] Comment on above: Performed By: #### C VDTBH #### [facility] [address] [place] [address] Dr. Obdulia Ng MONOM# 0.00 103/ul Critically low 0.30-0.80 [facility] Comment on above: Performed By: #### C VDTBH #### [facility] [address] [place] [address] Dr. Obdulia Ng MONOM% 0.0 % Critically low 1.7-12.0 [facility] Comment on above: Performed By: #### C VDTBH #### [facility] [address] [place] [address] Dr. Obdulia Ng MPV 9.7 fL Normal 9.5-13.5 [facility] Comment on above: Performed By: #### C VDTBH #### [facility] [address] [place] [address] Dr. Obdulia Ng MYELOCYTE # Normal [facility] Comment on above: Performed By: #### C VDTBH #### [facility] [address] [place] [address] Dr. Obdulia Ng MYELOCYTE % Normal [facility] Comment on above: Performed By: #### C VDTBH #### [facility] [address] [place] [address] Dr. Obdulia Ng NRBC Normal [facility] Comment on above: Performed By: #### C VDTBH #### [facility] [address] [place] [address] Dr. Obdulia Ng PLT 218 103/ul Normal 150-450 [facility] Comment on above: Performed By: #### C VDTBH #### [facility] [address] [place] [address] Dr. Obdulia Ng RBC 3.70 106/ul Critically low 4.70-6.10 [facility] Comment on above: Performed By: #### C VDTBH #### [facility] [address] [place] [address] Dr. Obdulia Ng RDW 14.6 % Normal 11.0-15.0 [facility] Comment on above: Performed By: #### C VDTBH #### [facility] [address] [place] [address] Dr. Obdulia Ng SEG # 7.55 103/ul Critically high 1.40-6.50 [facility] Comment on above: Performed By: #### C VDTBH #### [facility] [address] [place] [address] Dr. Obdulia gN SEG % 91.0 % Critically high 43.0-75.0 [facility] Comment on above: Performed By: #### C VDTBH #### [facility] [address] [place] [address] Dr. Obdulia Ng WBC 8.3 103/ul Normal 4.0-11.0 [facility] Comment on above: Performed By: #### C VDTBH #### [facility] [address] [place] [address] Dr. Obdulia Ng POINT OF CARE GLUCOSEon 01-22 Glucose [Mass/Vol] 133 mg/dL Critically high 74-106 [facility] Comment on above: Performed By: #### P OCGLUC #### [facility] [address] [place] [address] Dr. Obdulia Ng Glucose [Mass/Vol] 255 mg/dL Critically high 74-106 [facility] Comment on above: Performed By: #### T SH, T4 #### [facility] [address] [place] [address] Dr. Obdulia Ng Glucose [Mass/Vol] 229 mg/dL Critically high -106 [facility] Comment on above: Performed By: #### C BC #### [facility] [address] [place] [address] Dr. Obdulia Ng Glucose [Mass/Vol] 138 mg/dL Critically high -106 [facility] Comment on above: Performed By: #### P TT, PT #### [facility] [address] [place] [address] Dr. Obdulia Ng PROF CHEM 8 (BAS METB)on Anion gap [Moles/Vol] 11.3 mmol/L Normal [facility] Comment on above: Performed By: #### P OCGLUC #### [facility] [address] [place] [address] Dr. Obdulia Ng Calcium [Mass/Vol] 8.2 mg/dL Critically low 8.5-10.1 Th e [facility] Comment on above: Performed By: #### P OCGLUC #### [facility] [address] [address] [address] Obdulia Ng Chloride [Moles/Vol] 104 mmol/L Normal 98-107 [facility] Comment on above: Performed By: #### P OCGLUC #### [facility] [address] [address] [address] Obdulia Ng CO2 [Moles/Vol] 27.7 mmol/L Normal 21.0-32.0 [facility] Comment on above: Performed By: #### P OCGLUC #### [facility] [address] [place] [address] Dr. Obdulia Ng Creatinine [Mass/Vol] 1.34 mg/dL Critically high 0.70-1.30 [facility] Comment on above: Performed By: #### P OCGLUC #### [facility] [address] [address] [address] Obdulia Ng EGFR-AF TONGAN >60 Normal >=60 [facility] Comment on above: Performed By: #### P OCGLUC #### [facility] [address] [address] [address] Obdulia Ng EGFR-NON AF TONGAN 51 mL/min/1.73m2 Critically low >=60 [facility] Comment on above: Performed By: #### P OCGLUC #### [facility] [address] [address] [address] Obdulia Ng Glucose [Mass/Vol] 160 mg/dL Critically high 74-106 [facility] Comment on above: Performed By: #### P OCGLUC #### [facility] [address] [address] [address] Obdulia Ng Potassium [Moles/Vol] 4.0 mmol/L Normal 3.5-5.1 [facility] Comment on above: Performed By: #### P OCGLUC #### [facility] [address] [address] [address] Obdulia Ng Sodium [Moles/Vol] 139 mmol/L Normal 136-145 [facility] Comment on above: Performed By: #### P OCGLUC #### [facility] [address] [address] [address] Obdulia Ng Urea nitrogen [Mass/Vol] 24.0 mg/dL Critically high 7.0-18.0 [facility] Comment on above: Performed By: #### P OCGLUC #### [facility] [address] [address] [address] Obdulia Ng Urea nitrogen/Creatinine [Mass ratio] 17.9 mg/mg Normal [facility] Comment on above: Performed By: #### P OCGLUC #### [facility] [address] [place] [address] Dr. Obdulia Ng PROTIMEon 02-17-2022 INR Coag (PPP) [Relative time] 2.41 {INR} Normal [facility] Comment on above: Performed By: #### C VDTBH #### [facility] [address] [place] [address] Dr. Obdulia Ng INR GUIDELINES SEE BELOW Normal [facility] Comment on above: Result Comment: BRAD RED INR: 2.0 - 3.0 CONDITIONS NOT LISTED BELOW 2.5 - 3.5 FOR PROSTHETIC HEART VALVE REPLACEMENT 2.5 - 3.5 RECURRENT THROMBOSIS Performed By: #### C VDTBH #### [facility] [facility] [address] [place] [address] Dr. Obdulia Ng PT Coag (PPP) [Time] 24.6 s Critically high 9.0-11.6 [facility] Comment on above: Performed By: #### C VDTBH #### [facility] [address] [place] [address] Dr. Obdulia Ng XR CHEST 2 Von 02-17-2022 XR CHEST 2 V EXAMINATION: XR CHES T 2 V HISTORY: SHORTNESS OF BREATH , right lower lobe pneumonia, follow-up COMPARISON: XR chest 01/22/2022 FINDINGS: LUNGS: Minimal haziness within the lung bases. VASCULATURE: No increased pulmonary vasculature. PLEURA: No pneumothorax, effusion, or pleural thickening. CARDIAC: No cardiomegaly or cardiac silhouette abnormality. MEDIASTINUM: No visible mass or adenopathy. BONES: No fracture or visible bone lesion. OTHER: Negative. IMPRESSION: 1. Trace amount of bibasilar atelectasis versus infiltrates; improved compared to prior study. Electronically authenticated by: BROOKS STEHPENSON Date: 2022-02-17 07:01 Normal [facility] BNPon 02-16-2022 Natriuretic peptide B (Bld) [Mass/Vol] 54538.0 pg/mL Critically high <=1,800.0 [facility] Comment on above: Performed By: #### C BC #### [facility] [address] [place] [address] Dr. Obdulia Ng CBC AUTO DIFFon 02-16-2022 BASO # 0.1 103/ul Normal 0.0-0.1 [facility] Comment on above: Performed By: #### C VDTBH #### [facility] [address] [place] [address] Dr. Obdulia Ng Basophils/100 WBC (Bld) 0.4 % Normal 0.2-2.0 [facility] Comment on above: Performed By: #### C VDTBH #### [facility] [address] [place] [address] Dr. Obdulia Ng EO # 0.0 103/ul Normal 0.0-0.7 [facility] Comment on above: Performed By: #### C VDTBH #### [facility] [address] [place] [address] Dr. Obdulia Ng Eosinophils/100 WBC (Bld) 0.0 % Critically low 0.9-7.0 [facility] Comment on above: Performed By: #### C VDTBH #### [facility] [address] [place] [address] Dr. Obdulia Ng Erythrocyte distribution width (RBC) [Ratio] 14.6 % Normal 11.0-15.0 [facility] Comment on above: Performed By: #### C VDTBH #### [facility] [address] [place] [address] Dr. Obdulia Ng Hematocrit (Bld) [Volume fraction] 40.8 % Critically low 42.0-54.0 [facility] Comment on above: Performed By: #### C VDTBH #### [facility] [address] [place] [address] Dr. Obdulia Ng Hemoglobin (Bld) [Mass/Vol] 13.3 g/dL Critically low 14.0-18.0 [facility] Comment on above: Performed By: #### C VDTBH #### [facility] [address] [place] [address] Dr. Obdulia Ng IG # 0.05 10e3/ul Critically high 0.00-0.03 [facility] Comment on above: Performed By: #### C VDTBH #### [facility] [address] [place] [address] Dr. Obdulia Ng IG % 0.4 % Normal 0.0-0.5 [facility] Comment on above: Performed By: #### C VDTBH #### [facility] [address] [place] [address] Dr. Obdulia Ng LYMPH # 0.5 103/ul Critically low 1.2-3.8 [facility] Comment on above: Performed By: #### C VDTBH #### [facility] [address] [place] [address] Dr. Obdulia Ng Lymphocytes/100 WBC (Bld) 3.7 % Critically low 20.5-60.0 [facility] Comment on above: Performed By: #### C VDTBH #### [facility] [address] [place] [address] Dr. Obdulia Ng MANUAL DIFF REQ NO Normal [facility] Comment on above: Performed By: #### C VDTBH #### [facility] [address] [place] [address] Dr. Obdulia Ng MCH (RBC) [Entitic mass] 31.7 pg Normal 25.9-34.0 [facility] Comment on above: Performed By: #### C VDTBH #### [facility] [address] [place] [address] Dr. Obdulia Ng MCHC (RBC) [Mass/Vol] 32.6 g/dL Normal 29.9-35.2 [facility] Comment on above: Performed By: #### C VDTBH #### [facility] [address] [place] [address] Dr. Obdulia Ng MCV (RBC) [Entitic vol] 97.1 fL Critically high 80.0-94.0 [facility] Comment on above: Performed By: #### C VDTBH #### [facility] [address] [place] [address] Dr. Obdulia Ng MONO # 1.0 103/ul Critically high 0.3-0.8 [facility] Comment on above: Performed By: #### C VDTBH #### [facility] [address] [place] [address] Dr. Obdulia Ng Monocytes/100 WBC (Bld) 7.7 % Normal 1.7-12.0 [facility] Comment on above: Performed By: #### C VDTBH #### [facility] [address] [place] [address] Dr. Obdulia Ng NEUT # 11.3 103/ul Critically high 1.4-6.5 [facility] Comment on above: Performed By: #### C VDTBH #### [facility] [address] [place] [address] Dr. Obdulia Ng Neutrophils/100 WBC (Bld) 87.8 % Critically high 43.0-75.0 [facility] Comment on above: Performed By: #### C VDTBH #### [facility] [address] [place] [address] Dr. Obdulia Ng Platelet mean volume (Bld) [Entitic vol] 10.2 fL Normal 9.5-13.5 [facility] Comment on above: Performed By: #### C VDTBH #### [facility] [address] [place] [address] Dr. Obdulia gN PLT 262 103/ul Normal 150-450 [facility] Comment on above: Performed By: #### C VDTBH #### [facility] [address] [place] [address] Dr. Obdulia Ng RBC 4.20 106/ul Critically low 4.70-6.10 [facility] Comment on above: Performed By: #### C VDTBH #### [facility] [address] [place] [address] Dr. Obdulia Ng WBC 12.9 103/ul Critically high 4.0-11.0 [facility] Comment on above: Performed By: #### C VDTBH #### [facility] [address] [place] [address] Dr. Obdulia Ng CULTURE BLOODon 02-16-2022 Microscopic examination of blood, culture Culture Observations: NO GROWTH AT 5 DAYS. Normal [facility] Comment on above: Performed By: #### T SH, T4 #### [facility] [address] [place] [address] Dr. Obdulia Ng Microscopic examination of blood, culture Culture Observations: NO GROWTH AT 5 DAYS. Normal [facility] Comment on above: Performed By: #### T SH, T4 #### [facility] [address] [place] [address] Dr. Obdulia Ng CULTURE URINEon 02-16-2022 CULTURE URINE Culture Observations : NO GROWTH. Normal [facility] Comment on above: Performed By: #### T SH, T4 #### [facility] [address] [place] [address] Dr. Obdulia Ng Covid-19 PCR ([facility])on 01-22 SARS-CoV-2 (COVID-19) RNA SHELBY+probe Ql (Unsp spec) Detected Critically abnormal NOT DETECTED [facility] Comment on above: Result Comment: This test is not yet approved or cleared by the [place] FDA. When there are no FDA-approved or cleared tests available, and other criteria are met, FDA can make tests available under an emergency access mechanism called an Emergency Use Authorization (EUA). The EUA for this test is supported by the [employer] Mechanic of Health and Human Service's declaration that circumstances exist to justify the emergency use of in vitro diagnostics for the detection and/or diagnosis of the virus that causes COVID-19. This EUA will remain in effect for the duration of the COVID-19 declaration justifying emergency of IVDs, unless it is terminated or revoked by the FDA (after which the test may no longer be used). Performed By: #### C BC #### [facility] [address] [place] [address] Dr. Obdulia Ng ER URINE PROFILEon 2 Bilirubin Ql (U) Negative Normal NEGATIVE [facility] Comment on above: Performed By: #### P OCGLUC #### [facility] [address] [place] [address] Dr. Obdulia Ng Clarity (U) SL CLOUDY Abnormal CLEAR [facility] Comment on above: Performed By: #### P OCGLUC #### [facility] [address] [place] [address] Dr. Obdulia Ng ERUAHD A micrscopic examina tion will be performed if indicated. Normal [facility] Comment on above: Performed By: #### P OCGLUC #### [facility] [address] [place] [address] Dr. Obdulia Ng Glucose Ql (U) Negative Normal NEGATIVE [facility] Comment on above: Performed By: #### P OCGLUC #### [facility] [address] [place] [address] Dr. Obdulia Ng Hemoglobin Ql (U) Negative Normal NEGATIVE [facility] Comment on above: Performed By: #### P OCGLUC #### [facility] [address] [place] [address] Dr. Obdulia Ng Ketones Ql (U) Negative Normal NEGATIVE [facility] Comment on above: Performed By: #### P OCGLUC #### [facility] [address] [place] [address] Dr. Obdulia Ng LEUKOCYTES TRACE Abnormal NEGATIVE [facility] Comment on above: Performed By: #### P OCGLUC #### [facility] [address] [place] [address] Dr. Obdulia Ng Nitrite Ql (U) Negative Normal NEGATIVE [facility] Comment on above: Performed By: #### P OCGLUC #### [facility] [address] [place] [address] Dr. Obdulia Ng pH (U) 5.5 [pH] Normal 5-9 [facility] Comment on above: Performed By: #### P OCGLUC #### [facility] [address] [place] [address] Dr. Obdulia Ng SPEC GRAVITY 1.015 Normal 1.005-<=1. 025 [facility] Comment on above: Performed By: #### P OCGLUC #### [facility] [address] [place] [address] Dr. Obdulia Ng UA PROTEIN Negative Normal NEGATIVE/ TRACE [facility] Comment on above: Performed By: #### P OCGLUC #### [facility] [address] [place] [address] Dr. Obdulia Ng UR MICRO IND INDICATED Normal [facility] Comment on above: Performed By: #### P OCGLUC #### [facility] [address] [place] [address] Dr. Obdulia Ng Urobilinogen Qn (U) 1.0 {Cachorro'U}/dL Normal 0.2 - 1. 0 [facility] Comment on above: Performed By: #### P OCGLUC #### [facility] [address] [place] [address] Dr. Obdulia gN LACTATE/LACTIC ACIDon 2021 Lactate [Moles/Vol] 1.7 mmol/L Normal 0.4-1.9 [facility] Comment on above: Performed By: #### P OCGLUC #### [facility] [address] [place] [address] Dr. Obdulia Ng Lactate [Moles/Vol] 2.7 mmol/L Critically high 0.4-1.9 [facility] Comment on above: Performed By: #### C BC #### [facility] [address] [place] [address] Dr. Obdulia Ng PH VENOUS BLOODon 02-16-2022 PCO2 VENOUS 40.5 mmHg Normal 40.0-52.0 [facility] Comment on above: Performed By: #### P TT, PT #### [facility] [address] [place] [address] Dr. Obdulia Ng pH VENOUS 7.368 Normal 7.330-7.43 0 [facility] Comment on above: Performed By: #### P TT, PT #### [facility] [address] [place] [address] Dr. Obdulia Ng POINT OF CARE GLUCOSEon 01-22 Glucose [Mass/Vol] 290 mg/dL Critically high 74-106 [facility] Comment on above: Performed By: #### C BC #### [facility] [address] [place] [address] Dr. Obdulia Ng PROF 14(COMP METB)on 022 Albumin [Mass/Vol] 3.5 g/dL Normal 3.4-5.0 [facility] Comment on above: Performed By: #### C BC #### [facility] [address] [place] [address] Dr. Obdulia gN Albumin/Globulin [Mass ratio] 1.2 {ratio} Normal [facility] Comment on above: Performed By: #### C BC #### [facility] [address] [place] [address] Dr. Obdulia Ng ALP [Catalytic activity/Vol] 78 U/L Normal 46-116 [facility] Comment on above: Performed By: #### C BC #### [facility] [address] [place] [address] Dr. Obdulia Ng ALT [Catalytic activity/Vol] 48 U/L Normal 16-63 [facility] Comment on above: Performed By: #### C BC #### [facility] [address] [place] [address] Dr. Obdulia Ng Anion gap [Moles/Vol] 15.4 mmol/L Normal [facility] Comment on above: Performed By: #### C BC #### [facility] [address] [place] [address] Dr. Obdulia Ng AST [Catalytic activity/Vol] 24 U/L Normal 15-37 [facility] Comment on above: Performed By: #### C BC #### [facility] [address] [place] [address] Dr. Obdulia Ng Bilirubin [Mass/Vol] 1.6 mg/dL Critically high 0.2-1.0 [facility] Comment on above: Performed By: #### C BC #### [facility] [address] [place] [address] Dr. Obdulia Ng Calcium [Mass/Vol] 8.7 mg/dL Normal 8.5-10.1 [facility] Comment on above: Performed By: #### C BC #### [facility] [address] [address] [address] Obdulia Ng Chloride [Moles/Vol] 103 mmol/L Normal 98-107 [facility] Comment on above: Performed By: #### C BC #### [facility] [address] [place] [address] Dr. Obdulia Ng CO2 [Moles/Vol] 22.9 mmol/L Normal 21.0-32.0 [facility] Comment on above: Performed By: #### C BC #### [facility] [address] [place] [address] Dr. Obdulia Ng Creatinine [Mass/Vol] 1.34 mg/dL Critically high 0.70-1.30 [facility] Comment on above: Performed By: #### C BC #### [facility] [address] [place] [address] Dr. Obdulia Ng EGFR-AF TONGAN >60 Normal >=60 [facility] Comment on above: Performed By: #### C BC #### [facility] [address] [place] [address] Dr. Obdulia Ng EGFR-NON AF TONGAN 51 mL/min/1.73m2 Critically low >=60 [facility] Comment on above: Performed By: #### C BC #### [facility] [address] [place] [address] Dr. Obdulia Ng Globulin (S) [Mass/Vol] 2.9 g/dL Normal [facility] Comment on above: Performed By: #### C BC #### [facility] [address] [place] [address] Dr. Obdulia Ng Glucose [Mass/Vol] 181 mg/dL Critically high 74-106 [facility] Comment on above: Performed By: #### C BC #### [facility] [address] [address] [address] Obdulia Ng Potassium [Moles/Vol] 4.3 mmol/L Normal 3.5-5.1 [facility] Comment on above: Performed By: #### C BC #### [facility] [address] [address] [address] Obdulia Ng Protein [Mass/Vol] 6.4 g/dL Normal 6.4-8.2 [facility] Comment on above: Performed By: #### C BC #### [facility] [address] [address] [address] Obdulia Ng Sodium [Moles/Vol] 137 mmol/L Normal 136-145 [facility] Comment on above: Performed By: #### C BC #### [facility] [address] [address] [address] Obdulia Ng Urea nitrogen [Mass/Vol] 23.0 mg/dL Critically high 7.0-18.0 [facility] Comment on above: Performed By: #### C BC #### [facility] [address] [address] [address] Obdulia Ng Urea nitrogen/Creatinine [Mass ratio] 17.2 mg/mg Normal [facility] Comment on above: Performed By: #### C BC #### [facility] [address] [address] [address] Obdulia Ng PROTIMEon 02-16-2022 INR Coag (PPP) [Relative time] 2.40 {INR} Normal [facility] Comment on above: Performed By: #### P OCGLUC #### [facility] [address] [address] [address] Obdulia Ng INR GUIDELINES SEE BELOW Normal [facility] Comment on above: Result Comment: BRAD RED INR: 2.0 - 3.0 CONDITIONS NOT LISTED BELOW 2.5 - 3.5 FOR PROSTHETIC HEART VALVE REPLACEMENT 2.5 - 3.5 RECURRENT THROMBOSIS Performed By: #### P OCGLUC #### [facility] [address] [address] [address] Obdulia Ng PT Coag (PPP) [Time] 24.5 s Critically high 9.0-11.6 [facility] Comment on above: Performed By: #### P OCGLUC #### [facility] [address] [place] [address] Dr. Obdulia Ng PTTon 02-16-2022 aPTT Coag (Bld) [Time] 31.4 s Normal 22.3-36.2 [facility] Comment on above: Performed By: #### P OCGLUC #### [facility] [address] [place] [address] Dr. Obdulia Ng TROPONIN, HIGH SENSITIVITYon 02-16-2022 HSTROP 18.2 pg/mL Normal 4.0-76.1 [facility] Comment on above: Result Comment: CUT- OFF POINTS HAVE BEEN ESTABLISHED BASED ON THE FOURTH UNIVERSAL DEFINITIONS OF MYOCARDIAL INFARCTION. THE UPPER REFERENCE LIMIT (URL) OF TROPONIN, DEFINED THE 99TH PERCENTILE OF cTnI DISTRIBUTION IN A REFERENCE POPULATION, HAS BEEN CONFIRMED THE DECISION THRESHOLD FOR [place] DIAGNOSIS. Performed By: #### C BC #### [facility] [address] [place] [address] Dr. Obdulia Ng URINE MICROSCOPIC ONLYon BACTERIA TRACE Abnormal NONE SEEN [facility] Comment on above: Performed By: #### P OCGLUC #### [facility] [address] [place] [address] Dr. Obdulia Ng Bacteria identified Cx Nom (U) INDICATED Normal [facility] Comment on above: Performed By: #### P OCGLUC #### [facility] [address] [place] [address] Dr. Obdulia Ng CAST NONE SEEN Normal NONE SEEN [facility] Comment on above: Performed By: #### P OCGLUC #### [facility] [address] [place] [address] Dr. Obdulia Ng Crystals LM Nom (Urine sed) NONE SEEN Normal NONE SEEN [facility] Comment on above: Performed By: #### P OCGLUC #### [facility] [address] [place] [address] Dr. Obdulia Ng Epithelial cells LM Ql (Urine sed) FEW Abnormal NONE SEEN /RARE [facility] Comment on above: Performed By: #### P OCGLUC #### [facility] [address] [place] [address] Dr. Obdulia Ng MUCOUS NONE SEEN Normal NONE SEEN [facility] Comment on above: Performed By: #### P OCGLUC #### [facility] [address] [place] [address] Dr. Obdulia Ng RBC NONE SEEN Abnormal 0-2 [facility] Comment on above: Performed By: #### P OCGLUC #### [facility] [address] [place] [address] Dr. Obdulia Ng WBC 2-5 Abnormal NONE SEEN [facility] Comment on above: Performed By: #### P OCGLUC #### [facility] [address] [place] [address] Dr. Obdulia Ng XR CHEST 1 Von 02-16-2022 XR CHEST 1 V EXAM: Chest x-ray HISTORY: Increasing shortness of breath COMPARISON: 2021 TECHNIQUE: AP portable upright view of the chest FINDINGS: Heart is normal in size. Vascularity is unremarkable. There is prominence of interstitial markings. There is an infiltrate in the right lung base along with a small right effusion. There is a small amount of atelectasis in the left lung base with a small left effusion. IMPRESSION: 1. Slight prominence of the interstitial markings. 2. Infiltrate in the right lower lobe along with a small right effusion. 3. Small amount of atelectasis in the left lung base with a small left effusion. Electronically authenticated by: CHEPE ROLLINS Date: 2022-02-16 15:14 Normal [facility] Abstracton 01-30-2022 Abstract [id number] Joby Bergman 1940 M Date Provider Department Center 01/30/2022 Kaitlyn8-HUGO CORCORAN [facility] Family History Problem Relation Age of Onset Heart attack Father Family Status - Relation Status Age at Father Normal [facility] BNPon 12-24-2021 Natriuretic peptide B (Bld) [Mass/Vol] 8490.0 pg/mL Critically high <=1,800.0 [facility] Comment on above: Performed By: #### C BC #### [facility] [address] [address] [address] Obdulia Ng CBC AUTO DIFFon 12-24-2021 BASO # 0.1 103/ul Normal 0.0-0.1 [facility] Comment on above: Performed By: #### C BC #### [facility] [address] [address] [address] Obdulia Ng Basophils/100 WBC (Bld) 0.7 % Normal 0.2-2.0 [facility] Comment on above: Performed By: #### C BC #### [facility] [address] [place] [address] Dr. Obdulia Ng EO # 0.1 103/ul Normal 0.0-0.7 [facility] Comment on above: Performed By: #### C BC #### [facility] [address] [place] [address] Dr. Obdulia Ng Eosinophils/100 WBC (Bld) 0.8 % Critically low 0.9-7.0 [facility] Comment on above: Performed By: #### C BC #### [facility] [address] [place] [address] Dr. Obdulia Ng Erythrocyte distribution width (RBC) [Ratio] 13.2 % Normal 11.0-15.0 [facility] Comment on above: Performed By: #### C BC #### [facility] [address] [place] [address] Dr. Obdulia Ng Hematocrit (Bld) [Volume fraction] 38.7 % Critically low 42.0-54.0 [facility] Comment on above: Performed By: #### C BC #### [facility] [address] [place] [address] Dr. Obdulia Ng Hemoglobin (Bld) [Mass/Vol] 12.6 g/dL Critically low 14.0-18.0 [facility] Comment on above: Performed By: #### C BC #### [facility] [address] [place] [address] Dr. Obdulia Ng IG # 0.03 10e3/ul Normal 0.00-0.03 [facility] Comment on above: Performed By: #### C BC #### [facility] [address] [place] [address] Dr. Obdulia Ng IG % 0.3 % Normal 0.0-0.5 [facility] Comment on above: Performed By: #### C BC #### [facility] [address] [place] [address] Dr. Obdulia Ng LYMPH # 1.7 103/ul Normal 1.2-3.8 [facility] Comment on above: Performed By: #### C BC #### [facility] [address] [place] [address] Dr. Obdulia Ng Lymphocytes/100 WBC (Bld) 18.9 % Critically low 20.5-60.0 [facility] Comment on above: Performed By: #### C BC #### [facility] [address] [place] [address] Dr. Obdulia Ng MANUAL DIFF REQ NO Normal [facility] Comment on above: Performed By: #### C BC #### [facility] [address] [place] [address] Dr. Obdulia Ng MCH (RBC) [Entitic mass] 31.3 pg Normal 25.9-34.0 [facility] Comment on above: Performed By: #### C BC #### [facility] [address] [place] [address] Dr. Obdulia Ng MCHC (RBC) [Mass/Vol] 32.6 g/dL Normal 29.9-35.2 [facility] Comment on above: Performed By: #### C BC #### [facility] [address] [place] [address] Dr. Obdulia Ng MCV (RBC) [Entitic vol] 96.0 fL Critically high 80.0-94.0 [facility] Comment on above: Performed By: #### C BC #### [facility] [address] [place] [address] Dr. Obdulia Ng MONO # 0.8 103/ul Normal 0.3-0.8 [facility] Comment on above: Performed By: #### C BC #### [facility] [address] [address] [address] Obdulia Ng Monocytes/100 WBC (Bld) 9.0 % Normal 1.7-12.0 [facility] Comment on above: Performed By: #### C BC #### [facility] [address] [place] [address] Dr. Obdulia Ng NEUT # 6.1 103/ul Normal 1.4-6.5 [facility] Comment on above: Performed By: #### C BC #### [facility] [address] [place] [address] Dr. Obdulia Ng Neutrophils/100 WBC (Bld) 70.3 % Normal 43.0-75.0 [facility] Comment on above: Performed By: #### C BC #### [facility] [address] [place] [address] Dr. Obdulia Ng Platelet mean volume (Bld) [Entitic vol] 9.5 fL Normal 9.5-13.5 [facility] Comment on above: Performed By: #### C BC #### [facility] [address] [place] [address] Dr. Obdulia Ng PLT 307 103/ul Normal 150-450 [facility] Comment on above: Performed By: #### C BC #### [facility] [address] [place] [address] Dr. Obdulia Ng RBC 4.03 106/ul Critically low 4.70-6.10 [facility] Comment on above: Performed By: #### C BC #### [facility] [address] [place] [address] Dr. Obdulia Ng WBC 8.7 103/ul Normal 4.0-11.0 [facility] Comment on above: Performed By: #### C BC #### [facility] [address] [place] [address] Dr. Obdulia Ng PROF 14(COMP METB)on 022 Albumin [Mass/Vol] 3.3 g/dL Critically low 3.4-5.0 [facility] Comment on above: Performed By: #### C BC #### [facility] [address] [place] [address] Dr. Obdulia Ng Albumin/Globulin [Mass ratio] 1.1 {ratio} Normal [facility] Comment on above: Performed By: #### C BC #### [facility] [address] [place] [address] Dr. Obdulia Ng ALP [Catalytic activity/Vol] 74 U/L Normal 46-116 [facility] Comment on above: Performed By: #### C BC #### [facility] [address] [place] [address] Dr. Obdulia Ng ALT [Catalytic activity/Vol] 51 U/L Normal 16-63 [facility] Comment on above: Performed By: #### C BC #### [facility] [address] [place] [address] Dr. Obdulia Ng Anion gap [Moles/Vol] 12.8 mmol/L Normal [facility] Comment on above: Performed By: #### C BC #### [facility] [address] [place] [address] Dr. Obdulia Ng AST [Catalytic activity/Vol] 24 U/L Normal 15-37 [facility] Comment on above: Performed By: #### C BC #### [facility] [address] [place] [address] Dr. Obdulia Ng Bilirubin [Mass/Vol] 1.1 mg/dL Critically high 0.2-1.0 [facility] Comment on above: Performed By: #### C BC #### [facility] [address] [place] [address] Dr. Obdulia Ng Calcium [Mass/Vol] 8.7 mg/dL Normal 8.5-10.1 [facility] Comment on above: Performed By: #### C BC #### [facility] [address] [place] [address] Dr. Obdulia Ng Chloride [Moles/Vol] 103 mmol/L Normal 98-107 [facility] Comment on above: Performed By: #### C BC #### [facility] [address] [place] [address] Dr. Obdulia Ng CO2 [Moles/Vol] 29.8 mmol/L Normal 21.0-32.0 [facility] Comment on above: Performed By: #### C BC #### [facility] [address] [address] [address] Obdulia Ng Creatinine [Mass/Vol] 1.22 mg/dL Normal 0.70-1.30 [facility] Comment on above: Performed By: #### C BC #### [facility] [address] [address] [address] Obdulia Ng EGFR-AF TONGAN >60 Normal >=60 [facility] Comment on above: Performed By: #### C BC #### [facility] [address] [address] [address] Obdulia Ng EGFR-NON AF TONGAN 57 mL/min/1.73m2 Critically low >=60 [facility] Comment on above: Performed By: #### C BC #### [facility] [address] [address] [address] Obdulia Ng Globulin (S) [Mass/Vol] 3.1 g/dL Normal [facility] Comment on above: Performed By: #### C BC #### [facility] [address] [address] [address] Obdulia Ng Glucose [Mass/Vol] 104 mg/dL Normal 74-106 [facility] Comment on above: Performed By: #### C BC #### [facility] [address] [address] [address] Obdulia Ng Potassium [Moles/Vol] 3.6 mmol/L Normal 3.5-5.1 [facility] Comment on above: Performed By: #### C BC #### [facility] [address] [place] [address] Dr. Obdulia Ng Protein [Mass/Vol] 6.4 g/dL Normal 6.4-8.2 [facility] Comment on above: Performed By: #### C BC #### [facility] [address] [address] [address] Obdulia Ng Sodium [Moles/Vol] 142 mmol/L Normal 136-145 [facility] Comment on above: Performed By: #### C BC #### [facility] [address] [place] [address] Dr. Obdulia Ng Urea nitrogen [Mass/Vol] 20.0 mg/dL Critically high 7.0-18.0 [facility] Comment on above: Performed By: #### C BC #### [facility] [address] [place] [address] Dr. Obdulia Ng Urea nitrogen/Creatinine [Mass ratio] 16.4 mg/mg Normal [facility] Comment on above: Performed By: #### C BC #### [facility] [address] [place] [address] Dr. Obdulia Ng T3, TOTAL (TRIIODOTHYRONINE) on 12-24-2021 T3, TOTAL 94 ng/dL Normal 71-180 [facility] Comment on above: Performed By: #### P TT, PT #### [facility] [address] [place] [address] Dr. Obdulia Ng BNPon 2021 Natriuretic peptide B (Bld) [Mass/Vol] 6998.0 pg/mL Critically high <=1,800.0 [facility] Comment on above: Performed By: #### P OCGLUC #### [facility] [address] [place] [address] Dr. Obdulia Ng CARDIAC MARIPOSA 3-6on 2 CK [Catalytic activity/Vol] 86 U/L Normal 39-308 [facility] Comment on above: Performed By: #### P TT, PT #### [facility] [address] [place] [address] Dr. Obdulia Ng CK.MB [Mass/Vol] 2.13 ng/mL Normal <=3.60 [facility] Comment on above: Performed By: #### P TT, PT #### [facility] [address] [place] [address] Dr. Obdulia Ng HSTROP 14.4 pg/mL Normal 4.0-76.1 [facility] Comment on above: Result Comment: CUT- OFF POINTS HAVE BEEN ESTABLISHED BASED ON THE FOURTH UNIVERSAL DEFINITIONS OF MYOCARDIAL INFARCTION. THE UPPER REFERENCE LIMIT (URL) OF TROPONIN, DEFINED THE 99TH PERCENTILE OF cTnI DISTRIBUTION IN A REFERENCE POPULATION, HAS BEEN CONFIRMED THE DECISION THRESHOLD FOR [place] DIAGNOSIS. Performed By: #### P TT, PT #### [facility] [address] [place] [address] Dr. Obdulia Ng CK [Catalytic activity/Vol] 84 U/L Normal 39-308 [facility] Comment on above: Performed By: #### P OCGLUC #### [facility] [address] [place] [address] Dr. Obdulia Ng CK.MB [Mass/Vol] 2.16 ng/mL Normal <=3.60 [facility] Comment on above: Performed By: #### P OCGLUC #### [facility] [address] [place] [address] Dr. Obdulia Ng HSTROP 15.8 pg/mL Normal 4.0-76.1 [facility] Comment on above: Result Comment: CUT- OFF POINTS HAVE BEEN ESTABLISHED BASED ON THE FOURTH UNIVERSAL DEFINITIONS OF MYOCARDIAL INFARCTION. THE UPPER REFERENCE LIMIT (URL) OF TROPONIN, DEFINED THE 99TH PERCENTILE OF cTnI DISTRIBUTION IN A REFERENCE POPULATION, HAS BEEN CONFIRMED THE DECISION THRESHOLD FOR [place] DIAGNOSIS. Performed By: #### P OCGLUC #### [facility] [address] [place] [address] Dr. Obdulia Ng CBC AUTO DIFFon 2021 BASO # 0.0 103/ul Normal 0.0-0.1 [facility] Comment on above: Performed By: #### C BC #### [facility] [address] [place] [address] Dr. Obdulia Ng Basophils/100 WBC (Bld) 0.4 % Normal 0.2-2.0 [facility] Comment on above: Performed By: #### C BC #### [facility] [address] [place] [address] Dr. Obdulia Ng EO # 0.0 103/ul Normal 0.0-0.7 [facility] Comment on above: Performed By: #### C BC #### [facility] [address] [place] [address] Dr. Obdulia Ng Eosinophils/100 WBC (Bld) 0.2 % Critically low 0.9-7.0 [facility] Comment on above: Performed By: #### C BC #### [facility] [address] [place] [address] Dr. Obdulia Ng Erythrocyte distribution width (RBC) [Ratio] 13.2 % Normal 11.0-15.0 [facility] Comment on above: Performed By: #### C BC #### [facility] [address] [place] [address] Dr. Obdulia Ng Hematocrit (Bld) [Volume fraction] 35.1 % Critically low 42.0-54.0 [facility] Comment on above: Performed By: #### C BC #### [facility] [address] [place] [address] Dr. Obdulia Ng Hemoglobin (Bld) [Mass/Vol] 11.6 g/dL Critically low 14.0-18.0 [facility] Comment on above: Performed By: #### C BC #### [facility] [address] [place] [address] Dr. Obdulia Ng IG # 0.04 10e3/ul Critically high 0.00-0.03 [facility] Comment on above: Performed By: #### C BC #### [facility] [address] [place] [address] Dr. Obdulia Ng IG % 0.4 % Normal 0.0-0.5 [facility] Comment on above: Performed By: #### C BC #### [facility] [address] [place] [address] Dr. Obdulia Ng LYMPH # 0.7 103/ul Critically low 1.2-3.8 [facility] Comment on above: Performed By: #### C BC #### [facility] [address] [place] [address] Dr. Obdulia Ng Lymphocytes/100 WBC (Bld) 6.9 % Critically low 20.5-60.0 [facility] Comment on above: Performed By: #### C BC #### [facility] [address] [place] [address] Dr. Obdulia Ng MANUAL DIFF REQ NO Normal [facility] Comment on above: Performed By: #### C BC #### [facility] [address] [place] [address] Dr. Obdulia Ng MCH (RBC) [Entitic mass] 31.6 pg Normal 25.9-34.0 [facility] Comment on above: Performed By: #### C BC #### [facility] [address] [place] [address] Dr. Obdulia Ng MCHC (RBC) [Mass/Vol] 33.0 g/dL Normal 29.9-35.2 [facility] Comment on above: Performed By: #### C BC #### [facility] [address] [place] [address] Dr. Obdulia Ng MCV (RBC) [Entitic vol] 95.6 fL Critically high 80.0-94.0 [facility] Comment on above: Performed By: #### C BC #### [facility] [address] [place] [address] Dr. Obdulia Ng MONO # 0.6 103/ul Normal 0.3-0.8 [facility] Comment on above: Performed By: #### C BC #### [facility] [address] [place] [address] Dr. Obdulia Ng Monocytes/100 WBC (Bld) 5.7 % Normal 1.7-12.0 [facility] Comment on above: Performed By: #### C BC #### [facility] [address] [place] [address] Dr. Obdulia Ng NEUT # 8.8 103/ul Critically high 1.4-6.5 [facility] Comment on above: Performed By: #### C BC #### [facility] [address] [place] [address] Dr. Obdulia Ng Neutrophils/100 WBC (Bld) 86.4 % Critically high 43.0-75.0 [facility] Comment on above: Performed By: #### C BC #### [facility] [address] [place] [address] Dr. Obdulia Ng Platelet mean volume (Bld) [Entitic vol] 9.2 fL Critically low 9.5-13.5 [facility] Comment on above: Performed By: #### C BC #### [facility] [address] [place] [address] Dr. Obdulia Ng PLT 268 103/ul Normal 150-450 [facility] Comment on above: Performed By: #### C BC #### [facility] [address] [place] [address] Dr. Obdulia Ng RBC 3.67 106/ul Critically low 4.70-6.10 [facility] Comment on above: Performed By: #### C BC #### [facility] [address] [place] [address] Dr. Obdulia Ng WBC 10.2 103/ul Normal 4.0-11.0 [facility] Comment on above: Performed By: #### C BC #### [facility] [address] [place] [address] Dr. Obdulia Ng CULTURE URINEon 2021 CULTURE URINE Culture Observations : NO GROWTH. Normal [facility] Comment on above: Performed By: #### T SH, T4 #### [facility] [address] [place] [address] Dr. Obdulia Ng [facility] SARS-CoV-2 (COVID-19) RNA SHELBY+probe Ql (Unsp spec) Not detected Normal NOT DETECTED [facility] Comment on above: Result Comment: When diagnostic testing is negative, the possibility of a false negative should be considered in the context of a patient's recent exposures and the presence of clinical signs and symptoms consistent with SARS-CoV-2. This test is not yet approved or cleared by the [place] FDA. When there are no FDA-approved or cleared tests available, and other criteria are met, FDA can make tests available under an emergency access mechanism called an Emergency Use Authorization (EUA). The EUA for this test is supported by the [place] of Health and Human Service's declaration that circumstances exist to justify the emergency use of in vitro diagnostics for the detection and/or diagnosis of the virus that causes COVID-19. This EUA will remain in effect for the duration of the COVID-19 declaration justifying emergency of IVDs, unless it is terminated or revoked by the FDA (after which the test may no longer be used). Performed By: #### P OCGLUC #### [facility] [address] [address] [address] Obdulia Ng ECHOCARDIO M/2D COMPLETEon 0 2021 ECHOCARDIO M/2D COMPLETE Patient: ELVIRA BERGMAN Exam Date: 2021 : 1940 Gender:M Ordering : DR BRIDGET ROJAS . Admission #: [id number] Family : Order #: [id number] CLICK HERE TO VIEW EXAM ECHOCARDIOGRAM REPORT PROCEDURE: CARDIO PULMONARY ECHOCARDIO M/2D COMP INDICATIONS: Shortness of breath, Afib COMPARISON: None. DESCRIPTION: COMPLETE ECHOCARDIOGRAM Real-time transthoracic echocardiography with 2D, M-mode, spectral and color flow Doppler performed. QUALITY: Technical quality was adequate. LEFT VENTRICLE: Moderate dilatation. Mild concentric left ventricular hypertrophy. Global left ventricular systolic function is severely reduced. There is akinesis of the distal segments and apex. LV EF: Estimated left ventricular ejection fraction is 20-25%. DIASTOLIC: Not adequately assessed due to heart rhythm. ATRIAL SEPTUM: LEFT ATRIUM: Moderate dilatation. RIGHT ATRIUM: Moderate dilatation. RIGHT VENTRICLE: Normal chamber size dilatation. Normal right ventricular systolic function. TRICUSPID VALVE: Normal mobility and thickness. No stenosis with moderate regurgitation. Severe pulmonary hypertension. RVSP 66 mmHg. MITRAL VALVE: Normal mobility and thickness. No mitral valve prolapse. No evidence of mitral valve stenosis. There is no mitral annular calcification. Moderate mitral regurgitation. AORTIC VALVE: Normal trileaflet appearance. No visible sclerosis. Normal leaflet mobility. No evidence of aortic valve stenosis. No aortic regurgitation. AORTIC ROOT: Normal diameter and appearance. PULMONIC VALVE: Grossly normal. No stenosis. No regurgitation. PERICARDIUM: Trivial pericardial effusion. IVC: Mild dilatation. Measuring 2.4 cm with no collapse. PLEURA: CONCLUSION: 1. The left ventricle is moderately dilated with severely reduced global systolic function and segmental wall motion abnormalities. LVEF is 20 to 25%. 2. Normal right ventricular size and systolic function. 3. Moderate mitral and tricuspid regurgitation. 4. Severely elevated right-sided pressures. RVSP 66 mmHg. Dictated by: Mabel Ramsay M.D. on 2021 at 17:27 Approved by: Mabel Ramsay M.D. on 2021 at 17:33 Normal [facility] POINT OF CARE GLUCOSEon 08-0 Glucose [Mass/Vol] 116 mg/dL Critically high 74-106 [facility] Comment on above: Performed By: #### C BC #### [facility] [address] [address] [address] Obdulia Ng Glucose [Mass/Vol] 233 mg/dL Critically high 74-106 [facility] Comment on above: Performed By: #### P OCGLUC #### [facility] [address] [place] [address] Dr. Obdulia Ng PROF CHEM 8 (BAS METB)on Anion gap [Moles/Vol] 14.5 mmol/L Normal [facility] Comment on above: Performed By: #### P OCGLUC #### [facility] [address] [place] [address] Dr. Obdulia Ng Calcium [Mass/Vol] 8.5 mg/dL Normal 8.5-10.1 [facility] Comment on above: Performed By: #### P OCGLUC #### [facility] [address] [place] [address] Dr. Obdulia Ng Chloride [Moles/Vol] 105 mmol/L Normal 98-107 [facility] Comment on above: Performed By: #### P OCGLUC #### [facility] [address] [place] [address] Dr. Obdulia Ng CO2 [Moles/Vol] 23.8 mmol/L Normal 21.0-32.0 [facility] Comment on above: Performed By: #### P OCGLUC #### [facility] [address] [place] [address] Dr. Obdulia Ng Creatinine [Mass/Vol] 1.08 mg/dL Normal 0.70-1.30 [facility] Comment on above: Performed By: #### P OCGLUC #### [facility] [address] [address] [address] Obdulia Ng EGFR-AF TONGAN >60 Normal >=60 [facility] Comment on above: Performed By: #### P OCGLUC #### [facility] [address] [address] [address] Obdulia Ng EGFR-NON AF TONGAN >60 Normal >=60 [facility] Comment on above: Performed By: #### P OCGLUC #### [facility] [address] [address] [address] Obdulia Ng Glucose [Mass/Vol] 172 mg/dL Critically high 74-106 [facility] Comment on above: Performed By: #### P OCGLUC #### [facility] [address] [address] [address] Obdulia Ng Potassium [Moles/Vol] 4.3 mmol/L Normal 3.5-5.1 [facility] Comment on above: Performed By: #### P OCGLUC #### [facility] [address] [address] [address] Obdulia Ng Sodium [Moles/Vol] 139 mmol/L Normal 136-145 [facility] Comment on above: Performed By: #### P OCGLUC #### [facility] [address] [address] [address] Obdulia Ng Urea nitrogen [Mass/Vol] 17.0 mg/dL Normal 7.0-18.0 [facility] Comment on above: Performed By: #### P OCGLUC #### [facility] [address] [address] [address] Obdulia Ng Urea nitrogen/Creatinine [Mass ratio] 15.7 mg/mg Normal [facility] Comment on above: Performed By: #### P OCGLUC #### [facility] [address] [address] [address] Obdulia Ng T4on 2021 T4 [Mass/Vol] 7.50 ug/dL Normal 4.50-12.10 [facility] Comment on above: Performed By: #### T SH, T4 #### [facility] [address] [address] [address] Obdulia Ng TROPONIN, HIGH SENSITIVITYon 2021 HSTROP 15.3 pg/mL Normal 4.0-76.1 [facility] Comment on above: Result Comment: CUT- OFF POINTS HAVE BEEN ESTABLISHED BASED ON THE FOURTH UNIVERSAL DEFINITIONS OF MYOCARDIAL INFARCTION. THE UPPER REFERENCE LIMIT (URL) OF TROPONIN, DEFINED THE 99TH PERCENTILE OF cTnI DISTRIBUTION IN A REFERENCE POPULATION, HAS BEEN CONFIRMED THE DECISION THRESHOLD FOR [place] DIAGNOSIS. Performed By: #### P OCGLUC #### [facility] [address] [place] [address] Dr. Obdulia Ng TSHon 2021 TSH 0.904 uIU/mL Normal 0.358-3.74 0 [facility] Comment on above: Performed By: #### T SH, T4 #### [facility] [address] [place] [address] Dr. Obdulia Ng UA RANDOM W/MICROSCOPICon BACTERIA NONE SEEN Normal NONE SEEN [facility] Comment on above: Performed By: #### T SH, T4 #### [facility] [address] [place] [address] Dr. Obdulia Ng Bilirubin Ql (U) Negative Normal NEGATIVE [facility] Comment on above: Performed By: #### T SH, T4 #### [facility] [address] [place] [address] Dr. Obdulia Ng CAST NONE SEEN Normal NONE [facility] Comment on above: Performed By: #### T SH, T4 #### [facility] [address] [place] [address] Dr. Obdulia Ng Clarity (U) CLEAR Normal CLEAR [facility] Comment on above: Performed By: #### T SH, T4 #### [facility] [address] [place] [address] Dr. Obdulia Ng Color (U) LT. YELLOW Normal YELLOW [facility] Comment on above: Performed By: #### T SH, T4 #### [facility] [address] [place] [address] Dr. Obdulia Ng Crystals LM Nom (Urine sed) NONE SEEN Normal NONE SEEN [facility] Comment on above: Performed By: #### T SH, T4 #### [facility] [address] [place] [address] Dr. Obdulia Ng Epithelial cells LM Ql (Urine sed) NONE SEEN Normal NONE SEEN /RARE [facility] Comment on above: Performed By: #### T SH, T4 #### [facility] [address] [place] [address] Dr. Obdulia Ng Glucose Ql (U) Negative Normal NEGATIVE [facility] Comment on above: Performed By: #### T SH, T4 #### [facility] [address] [place] [address] Dr. Obdulia Ng Hemoglobin Ql (U) Negative Normal NEGATIVE [facility] Comment on above: Performed By: #### T SH, T4 #### [facility] [address] [place] [address] Dr. Obdulia Ng Ketones Ql (U) Negative Normal NEGATIVE [facility] Comment on above: Performed By: #### T SH, T4 #### [facility] [address] [place] [address] Dr. Obdulia Ng LEUKOCYTES Negative Normal NEGATIVE [facility] Comment on above: Performed By: #### T SH, T4 #### [facility] [address] [place] [address] Dr. Obdulia Ng MUCOUS NONE SEEN Normal NONE SEEN [facility] Comment on above: Performed By: #### T SH, T4 #### [facility] [address] [place] [address] Dr. Obdulia Ng Nitrite Ql (U) Negative Normal NEGATIVE [facility] Comment on above: Performed By: #### T SH, T4 #### [facility] [address] [place] [address] Dr. Obdulia Ng pH (U) 6.0 [pH] Normal 5-9 [facility] Comment on above: Performed By: #### T SH, T4 #### [facility] [address] [place] [address] Dr. Obdulia Ng RBC NONE SEEN Abnormal 0-2 [facility] Comment on above: Performed By: #### T SH, T4 #### [facility] [address] [address] [address] Obdulia Ng SPEC GRAVITY 1.010 Normal 1.005-<=1. 025 [facility] Comment on above: Performed By: #### T SH, T4 #### [facility] [address] [address] [address] Obdulia Ng UA PROTEIN Negative Normal NEGATIVE/ TRACE [facility] Comment on above: Performed By: #### T SH, T4 #### [facility] [address] [address] [address] Obdulia Ng Urobilinogen Qn (U) 1.0 {Cachorro'U}/dL Normal 0.2 - 1. 0 [facility] Comment on above: Performed By: #### T SH, T4 #### [facility] [address] [place] [address] Dr. Obdulia Ng WBC NONE SEEN Normal NONE SEEN [facility] Comment on above: Performed By: #### T SH, T4 #### [facility] [address] [address] [address] Obdulia Ng XR CHEST 1 Von 2021 XR CHEST 1 V EXAMINATION: XR CHES T 1 V HISTORY: SHORTNESS OF BREATH COMPARISON: XR chest 11/17/2021 FINDINGS: LUNGS: Mild haziness within right lung base. Focal density within left lateral lung base. VASCULATURE: No increased pulmonary vasculature. PLEURA: No pneumothorax, effusion, or pleural thickening. CARDIAC: No cardiomegaly or cardiac silhouette abnormality. MEDIASTINUM: No visible mass or adenopathy. BONES: No fracture or visible bone lesion. OTHER: Negative. IMPRESSION: 1. Suspect mild bibasilar infiltrates. Follow-up chest x-ray to document clearing is recommended as the left lung base finding could represent a nodule/mass. Electronically authenticated by: BROOKS STEPHENSON Date: 2021 11:26 Normal [facility] CBC AUTO DIFFon 11-17-2021 BASO # 0.0 103/ul Normal 0.0-0.1 [facility] Comment on above: Performed By: #### P OCGLUC #### [facility] [address] [place] [address] Dr. Obdulia Ng Basophils/100 WBC (Bld) 0.3 % Normal 0.2-2.0 [facility] Comment on above: Performed By: #### P OCGLUC #### [facility] [address] [place] [address] Dr. Obdulia Ng EO # 0.0 103/ul Normal 0.0-0.7 [facility] Comment on above: Performed By: #### P OCGLUC #### [facility] [address] [place] [address] Dr. Obdulia Ng Eosinophils/100 WBC (Bld) 0.1 % Critically low 0.9-7.0 [facility] Comment on above: Performed By: #### P OCGLUC #### [facility] [address] [place] [address] Dr. Obdulia Ng Erythrocyte distribution width (RBC) [Ratio] 12.9 % Normal 11.0-15.0 [facility] Comment on above: Performed By: #### P OCGLUC #### [facility] [address] [place] [address] Dr. Obdulia Ng Hematocrit (Bld) [Volume fraction] 38.4 % Critically low 42.0-54.0 [facility] Comment on above: Performed By: #### P OCGLUC #### [facility] [address] [place] [address] Dr. Obdulia Ng Hemoglobin (Bld) [Mass/Vol] 12.7 g/dL Critically low 14.0-18.0 [facility] Comment on above: Performed By: #### P OCGLUC #### [facility] [address] [place] [address] Dr. Obdulia Ng IG # 0.03 10e3/ul Normal 0.00-0.03 [facility] Comment on above: Performed By: #### P OCGLUC #### [facility] [address] [place] [address] Dr. Obdulia Ng IG % 0.3 % Normal 0.0-0.5 [facility] Comment on above: Performed By: #### P OCGLUC #### [facility] [address] [address] [address] Obdulia Ng LYMPH # 0.8 103/ul Critically low 1.2-3.8 [facility] Comment on above: Performed By: #### P OCGLUC #### [facility] [address] [place] [address] Dr. Obdulia Ng Lymphocytes/100 WBC (Bld) 7.2 % Critically low 20.5-60.0 [facility] Comment on above: Performed By: #### P OCGLUC #### [facility] [address] [place] [address] Dr. Obdulia Ng MANUAL DIFF REQ NO Normal [facility] Comment on above: Performed By: #### P OCGLUC #### [facility] [address] [place] [address] Dr. Obdulia Ng MCH (RBC) [Entitic mass] 32.2 pg Normal 25.9-34.0 [facility] Comment on above: Performed By: #### P OCGLUC #### [facility] [address] [place] [address] Dr. Obdulia Ng MCHC (RBC) [Mass/Vol] 33.1 g/dL Normal 29.9-35.2 [facility] Comment on above: Performed By: #### P OCGLUC #### [facility] [address] [place] [address] Dr. Obdulia Ng MCV (RBC) [Entitic vol] 97.5 fL Critically high 80.0-94.0 [facility] Comment on above: Performed By: #### P OCGLUC #### [facility] [address] [place] [address] Dr. Obdulia Ng MONO # 1.0 103/ul Critically high 0.3-0.8 [facility] Comment on above: Performed By: #### P OCGLUC #### [facility] [address] [place] [address] Dr. Obdulia Ng Monocytes/100 WBC (Bld) 9.9 % Normal 1.7-12.0 [facility] Comment on above: Performed By: #### P OCGLUC #### [facility] [address] [address] [address] Obdulia Ng NEUT # 8.6 103/ul Critically high 1.4-6.5 [facility] Comment on above: Performed By: #### P OCGLUC #### [facility] [address] [address] [address] Obdulia Ng Neutrophils/100 WBC (Bld) 82.2 % Critically high 43.0-75.0 [facility] Comment on above: Performed By: #### P OCGLUC #### [facility] [address] [address] [address] Obdulia Ng Platelet mean volume (Bld) [Entitic vol] 10.3 fL Normal 9.5-13.5 [facility] Comment on above: Performed By: #### P OCGLUC #### [facility] [address] [place] [address] Dr. Obdulia Ng PLT 202 103/ul Normal 150-450 [facility] Comment on above: Performed By: #### P OCGLUC #### [facility] [address] [place] [address] Dr. Obdulia Ng RBC 3.94 106/ul Critically low 4.70-6.10 [facility] Comment on above: Performed By: #### P OCGLUC #### [facility] [address] [place] [address] Dr. Obdulia Ng WBC 10.4 103/ul Normal 4.0-11.0 [facility] Comment on above: Performed By: #### P OCGLUC #### [facility] [address] [place] [address] Dr. Obdulia Ng PROF CHEM 8 (BAS METB)on Anion gap [Moles/Vol] 12.9 mmol/L Normal [facility] Comment on above: Performed By: #### T SH, T4 #### [facility] [address] [place] [address] Dr. Obdulia Ng Calcium [Mass/Vol] 8.6 mg/dL Normal 8.5-10.1 [facility] Comment on above: Performed By: #### T SH, T4 #### [facility] [address] [address] [address] Obdulia Ng Chloride [Moles/Vol] 102 mmol/L Normal 98-107 [facility] Comment on above: Performed By: #### T SH, T4 #### [facility] [address] [address] [address] Obdulia Ng CO2 [Moles/Vol] 25.8 mmol/L Normal 21.0-32.0 [facility] Comment on above: Performed By: #### T SH, T4 #### [facility] [address] [address] [address] Obdulia Ng Creatinine [Mass/Vol] 1.03 mg/dL Normal 0.70-1.30 [facility] Comment on above: Performed By: #### T SH, T4 #### [facility] [address] [place] [address] Dr. Obdulia Ng EGFR-AF TONGAN >60 Normal >=60 [facility] Comment on above: Performed By: #### T SH, T4 #### [facility] [address] [place] [address] Dr. Obdulia Ng EGFR-NON AF TONGAN >60 Normal >=60 [facility] Comment on above: Performed By: #### T SH, T4 #### [facility] [address] [place] [address] Dr. Obdulia Ng Glucose [Mass/Vol] 164 mg/dL Critically high 74-106 [facility] Comment on above: Performed By: #### T SH, T4 #### [facility] [address] [place] [address] Dr. Obdulia Ng Potassium [Moles/Vol] 3.7 mmol/L Normal 3.5-5.1 [facility] Comment on above: Performed By: #### T SH, T4 #### [facility] [address] [place] [address] Dr. Obdulia Ng Sodium [Moles/Vol] 137 mmol/L Normal 136-145 [facility] Comment on above: Performed By: #### T SH, T4 #### [facility] [address] [place], [place] [id number] Dr. Obdulia Ng Urea nitrogen [Mass/Vol] 15.0 mg/dL Normal 7.0-18.0 [facility] Comment on above: Performed By: #### T SH, T4 #### [facility] [address] [place] [address] Dr. Obdulia Ng Urea nitrogen/Creatinine [Mass ratio] 14.6 mg/mg Normal [facility] Comment on above: Performed By: #### T SH, T4 #### [facility] [address] [address] [address] Obdulia Ng TROPONIN, HIGH SENSITIVITYon 11-17-2021 HSTROP 16.2 pg/mL Normal 4.0-76.1 [facility] Comment on above: Result Comment: CUT- OFF POINTS HAVE BEEN ESTABLISHED BASED ON THE FOURTH UNIVERSAL DEFINITIONS OF MYOCARDIAL INFARCTION. THE UPPER REFERENCE LIMIT (URL) OF TROPONIN, DEFINED THE 99TH PERCENTILE OF cTnI DISTRIBUTION IN A REFERENCE POPULATION, HAS BEEN CONFIRMED THE DECISION THRESHOLD FOR [place] DIAGNOSIS. Performed By: #### T SH, T4 #### [facility] [address] [place] [address] Dr. Obdulia Ng XR CHEST 1 Von 11-17-2021 XR CHEST 1 V EXAMINATION: XR CHES T 1 V HISTORY: CHEST PAIN, UNSPECIFIED COMPARISON: 07/02/2019 TECHNIQUE: AP portable erect FINDINGS: LUNGS: No significant pulmonary parenchymal abnormalities. VASCULATURE: No increased pulmonary vasculature. PLEURA: No pneumothorax, effusion, or pleural thickening. CARDIAC: No cardiomegaly or cardiac silhouette abnormality. MEDIASTINUM: No visible mass or adenopathy. BONES: No fracture or visible bone lesion. OTHER: Negative. IMPRESSION: No acute disease. Electronically authenticated by: CHEPE MONTES DE OCA Date: 2021-11-17 09:11 Normal [facility] Discharge Summaryon 02-16-20 Discharge Summary MR#: [id number] Ej santillan of [facility] Pt. Name: Elvira Bergman Admitted: 02/11/2017 Discharged: 02/12/2017 Date of : 1940 Physician: Marisol Tomas M.D. DISCHARGE SUMMARYPRIMARY DISCHARGE DIAGNOSIS: Acute coronary syndrome (status post PCI toLAD).SECONDARY DISCHARGE DIAGNOSES:1. Coronary artery disease, status post PCI to LAD and RCA in 2004.2. Peripheral vascular disease.3. (right common iliac artery occluded).4. Diabetes mellitus type 2.5. Hypertension.CONSULTS: None.PROCEDURES:1. Left heart catheterization/PCI.2. Echo (EF 25%).HOSPITAL COURSE: The patient was brought to the ED on with a historyof chest pain and new changes in his EKG concerning for acute ST-elevationMI. He was flown in from [facility] for emergency cath. His LADwas found to have 80% ISR. This lesion was stented. The highest troponinlevel seen was 0.12, which was recorded at an outside hospital. He did nothave any more episodes of chest pain. He was discharged to home the nextday.DISCHARGE MEDICATIONS:1. Aspirin 81 mg 1 tablet daily.2. Atenolol 50 mg once daily.3. Atorvastatin 80 mg once daily.4. Plavix 75 mg once daily.5. Finasteride 5 mg tablet once daily.6. Glipizide 5 mg tablet 2 times per day.7. Lisinopril 20 mg tablet once daily.8. Metformin 500 mg tablet 2 times per day.9. Nitroglycerin 0.4 mg sublingual tablet as needed.10. Tamsulosin 0.4 mg capsule once daily.NEW MEDICATIONS: None.STOP MEDICATIONS: None.Electronically Signed by:Marisol Tomas M.D. 03/01/2017 03:50 P Marisol Tomas M.D. I personally saw this patient on the day of the encounter, performed thekey portion(s) of the service and participated in the management andconfirm the resident's documentation. Please note there may be anadditional personal documentation from me. Date Dict: 02/14/2017/03:49 P/Xin Hernandez Trans: 02/14/2017 10:56 P/Jimy_JN:[id number]: Bridget Rojas M.D. [address], [facility] [address] Normal [facility] BNP (B-TYPE NATRIURETIC PEPT LEANDER)on 02-12-2017 BNP 211 pg/mL High 0-100 [facility] Comment on above: Order Comment: No: D o not add to previous draw Result Comment: Give n the appropriate clinical setting a BNP result of >100 pg/mLindicates congestive heart failure. Performed By: #### [id number], [id number] ####[facility].[address] CBC W/DIFFon 02-12-2017 Basophils Auto #/vol (Bld) 1.2 % Normal 0.0-2.0 [facility] Comment on above: Order Comment: No: D o not add to previous draw Performed By: #### 5 [id number] ####[id number] [place] [address], [facility] Eosinophils/100 leukocytes 0.3 % Normal 0.0-5.0 [facility] Comment on above: Order Comment: No: D o not add to previous draw Performed By: #### 5 0103 ####[facility].[address] Erythrocyte distribution width Auto Ratio (RBC) 12.9 % Normal 11.5-16.9 [facility] Comment on above: Order Comment: No: D o not add to previous draw Performed By: #### 5 0103 ####[facility].[address] Erythrocytes (RBC) 3.94 mill/mm3 Low 4.30-5.90 [facility] Comment on above: Order Comment: No: D o not add to previous draw Performed By: #### 5 0103 ####[facility].[address] Hematocrit (HCT) 37.7 % Low 39.0-55.0 [facility] Comment on above: Order Comment: No: D o not add to previous draw Performed By: #### 5 0103 ####[facility] Hemoglobin mass conc (Bld) 12.9 g/dL Low 13.9-16.3 [facility] Comment on above: Order Comment: No: D o not add to previous draw Performed By: #### 5 0103 ####[facility] Lymphocytes/100 leukocytes 15.3 % Low 20.0-40.0 [facility] Comment on above: Order Comment: No: D o not add to previous draw Performed By: #### 5 0103 ####[facility].[address] MCH 32.6 pg High 24.0-32.0 [facility] Comment on above: Order Comment: No: D o not add to previous draw Performed By: #### 5 0103 ####[facility].[address] MCHC mass conc (RBC) 34.1 g/dL Normal 32.0-36.0 [facility] Comment on above: Order Comment: No: D o not add to previous draw Performed By: #### 5 0103 ####[facility].[address] MCV 95.7 fL Normal 80.0-100.0 [facility] Comment on above: Order Comment: No: D o not add to previous draw Performed By: #### 5 0103 ####[facility].[address] METHOD Normal RBC Morphology Normal [facility] Comment on above: Order Comment: No: D o not add to previous draw Performed By: #### 5 3 ####[facility] MONOS 12.2 % High 2-8 [facility] Comment on above: Order Comment: No: D o not add to previous draw Performed By: #### 5 0103 ####[facility] [place] [address], [facility] Neutrophils/100 leukocytes 71.0 % High 50-70 [facility] Comment on above: Order Comment: No: D o not add to previous draw Performed By: #### 5 0103 ####[facility] [place] [address], [facility] PLAT CNT 276 Thou/mm3 Normal 100-400 [facility] Comment on above: Order Comment: No: D o not add to previous draw Performed By: #### 5 0103 ####[facility] [place] [address], [facility] WBC (Leukocytes) 9.6 Thou/mm3 Normal 4.0-10.0 [facility] Comment on above: Order Comment: No: D o not add to previous draw Performed By: #### 5 0103 ####[facility] COMP METABOLIC PANELon 02-12 Alanine aminotransferase (ALT) 11 U/L Normal 7-52 [facility] Comment on above: Order Comment: No: D o not add to previous draw Performed By: #### 4 1000, 56841, 26126, 94528, 73386, 49957 ####[facility] Albumin 3.2 g/dL Low 3.5-5.7 [facility] Comment on above: Order Comment: No: D o not add to previous draw Performed By: #### 4 1000, 32033, 46682, 84060, 89214, 06287 ####[facility] [place] [address], [facility] ALKALINE PHOSPH 49 IU/L Normal 34-104 [facility] Comment on above: Order Comment: No: D o not add to previous draw Performed By: #### 4 1000, 15543, 60824, 76858, 10552, 51570 ####[facility] Aspartate aminotransferase (AST) 9 U/L Low 13-39 [facility] Comment on above: Order Comment: No: D o not add to previous draw Performed By: #### 4 1000, 24688, 57431, 84187, 22553, 85769 ####[facility] [place] [address], [facility] Bilirubin (total) 0.6 mg/dL Normal 0.3-1.0 [facility] Comment on above: Order Comment: No: D o not add to previous draw Performed By: #### 4 1000, 53502, 06106, 15933, 31719, 01025 ####[facility] [place] [address], [facility] Calcium 8.5 mg/dL Low 8.6-10.3 [facility] Comment on above: Order Comment: No: D o not add to previous draw Performed By: #### 4 1000, 44556, 72751, 49528, 92817, 58842 ####[facility] [place] [address], [facility] Chloride 106 mmol/L Normal 98-107 [facility] Comment on above: Order Comment: No: D o not add to previous draw Performed By: #### 4 1000, 96145, 78364, 14115, 15788, 86467 ####[facility] [place] [address], [facility] CO2 24 mmol/L Normal 21-31 [facility] Comment on above: Order Comment: No: D o not add to previous draw Performed By: #### 4 1000, 67172, 73813, 39531, 75623, 07338 ####[facility] [place] [address], [facility] Creatinine 0.98 mg/dL Normal 0.70-1.30 [facility] Comment on above: Order Comment: No: D o not add to previous draw Performed By: #### 4 1000, 63335, 18798, 52720, 21090, 54474 ####[facility] eGFR (black) mL/min/{1.73_m2} Normal >60 [facility] Comment on above: Order Comment: No: D o not add to previous draw Result Comment: Calc ulation may not be valid for patients over 70 years Performed By: #### 4 1000, 21793, 18831, 05345, 74475, 97376 ####[facility] eGFR (non-black) mL/min/{1.73_m2} Normal >60 [facility] Comment on above: Order Comment: No: D o not add to previous draw Result Comment: Calc ulation may not be valid for patients over 70 years Performed By: #### 4 1000, 20528, 28317, 58628, 23852, 05340 ####[facility] [facility] [place] [address], [facility] Glucose mass conc 180 mg/dL High 70-100 [facility] Comment on above: Order Comment: No: D o not add to previous draw Performed By: #### 4 1000, 73447, 72827, 46708, 23679, 16483 ####[facility] [place] [address], [facility] Potassium molar conc 4.2 mmol/L Normal 3.5-5.1 [facility] Comment on above: Order Comment: No: D o not add to previous draw Performed By: #### 4 1000, 92144, 47274, 06622, 62842, 65104 ####[facility].[address] Protein 5.9 g/dL Low 6.0-8.3 [facility] Comment on above: Order Comment: No: D o not add to previous draw Performed By: #### 4 1000, 45427, 95218, 27889, 07776, 30446 ####[facility].[address] Sodium 135 mmol/L Low 136-145 [facility] Comment on above: Order Comment: No: D o not add to previous draw Performed By: #### 4 1000, 93210, 64210, 92548, 70739, 56841 ####[facility] [facility].[address] Urea nitrogen 20 mg/dL Normal 7-25 [facility] Comment on above: Order Comment: No: D o not add to previous draw Performed By: #### 4 1000, 66331, 49355, 87868, 59034, 45035 ####[facility] [facility].[address] CPKon 02-12-2017 Creatine kinase (CK) 44 U/L Normal 30-223 [facility] Comment on above: Order Comment: No: D o not add to previous draw Performed By: #### 4 1000, 91997, 58493, 24009, 84442, 40957 ####[facility] [facility].[address] Cardiovascular Lab Reporton 02-12-2017 Cardiovascular Lab Report [facility] Patient Name: Elvira Bergman [facility] MR #: [id number] Physician: Marie Zurita,Department of M.D.Medicine Service Date: 02/11/2017Division of Birthdate: 2Cardiology Room #: 3AB [id number] CardiovascularServicesUniver [place] [address]Phone Fax Cardiovascular Laboratory ReportIMPRESSION:1. Successful balloon angioplasty, reduction of 80% in-stent restenosis to 0 using a 3.5 x 12 Synergy stent.2. Occluded right common iliac artery.3. Patent stent in right coronary artery with mild in-stent restenosis.INDICATION:Elvira Bergman is a 76-year-old male, [facility]. [facility] showed ST-elevation concerning for ST-elevationmyocardial infarction. Because of that, he was life flighted to [facility].PROCEDURE:1. Coronary angiography from right radial access.2. Balloon angioplasty in LAD.3. Drug-eluting stent placement in LAD.4. Abdominal aortography with runoff.RECOMMENDATIONS:1. Continue medical therapy for coronary artery disease.2. The patient should undergo a lower extremity duplex ultrasound as well as ABIs to evaluate for peripheral arterial disease. The current angiogram does show occluded right common iliac artery. He has symptoms of numbness with activity. His symptoms are consistent worse with exercise, and will be considered for lower extremity angiography as well as possible stenting of the iliac artery. This was discussed with Dr. Francisco Nath, who will see him as an outpatient. This was discussed with patient and referring financial solutions advisor.METHODS:After risks, benefits, and alternatives were explained to the patient, hewas brought to catheterization lab suite in a fasting state. Access wasobtained. Initially we tried to obtain in the right common femoral artery,however, it was a very feeble pulse and this access was abandoned. At thispoint of time, we accessed the right radial artery and a 6-Georgian sheathwas placed in. After that, the wire was placed in the right subclavianartery. Note that he has significant tortuousities in the innominateartery. At this point of time, we had to use magic torque wire to get theEBU 3.5 guide into the ascending aorta. However, we were unable to engagewith the 6F EBU 3.5 guide. At this point of time, this guide was taken outand a 6-Georgian JL-4 guide was used to engage the left main coronary ostium.At this point of time, angiography was performed that showed hazy 80%stenosis in the mid to distal portion of the previously placed stent in theleft anterior descending coroanry artery with SHAY-3 flow. At this pointof time, we placed a Prowater wire down and a pre dilatation was performedusing a 3.0 x 12 noncompliant balloon at 20 atmospheres. Subsequently a3.5 x 12 Synergy stent was deployed, this was post dilated with a 3.5 x 8noncompliant balloon at 24 atmospheres. Intracoronary nitroglycerin wasadministered. Final angiography showed good stent result with no evidenceof dissection perforation. There was SHAY-3 flow down the LAD. Note thatthe proximal LAD stent has very mild in-stent restenosis. The guidingcatheter was taken out. At this point of time, we used a 6-Georgian JR-5 toengage the right coronary ostium. This shows previously placed stents,which are patent with mild in-stent restenosis. Given lack of femoralpulse, we decided to perform abdominal aortography with runoff. Note thatthis patient is a tall built and we had to use a long multipurpose catheterin the abdominal aorta. At this point of time, injection was performed andthat showed occluded right common iliac artery with reconstitution in theright common femoral artery.At this point of time, guiding catheter was taken out. Hemostasis wasobtained by application of TR band. There were no complications. He wasloaded with 600 mg of Plavix and therapeutic ACT was confirmed.HEMODYNAMIC DATA:AO 132/60, pulse 86.Total fluoro time 18.46.Air kerma 2.6 Gy.Total contrast 160 mL.Total sedation time is 57CORONARY ANGIOGRAPHY:1. Left main. This is a moderate-sized vessel, bifurcates into LAD and circumflex. Left main is angiographically normal.2. Circumflex. This shows diffuse plaque disease and at least 60% stenosis, gives rise to a large obtuse marginal branch, which is angiographically normal.3. LAD. This shows a stent in its proximal segment, which is widely patent. Right in the mid segment, the stent and haziness noted. This haziness was also noticed in the previous angiogram performed in 2012. This haziness is best visualized in an ALBANIAN cranial view. It is eccentric with 80% in-stent restenosis. This was treated with a 3.5 x 12 Synergy stent as outlined above with good stent result. This was also postdilated with a 3.5 x 8 noncompliant balloon. Final angiography in LAD showed a good stent result with SHAY-3 flow.4. Circumflex : his is angiographically normal. It gives rise to a moderate-sized marginal branch, which is normal.5. Right coronary artery. This shows stent in its mid and distal segments. The stent in its mid segment has at least 40% in-stent restenosis. The distal segment also has 40% in-stent restenosis. This is the dominant vessel. There is diffuse disease throughout this vessel.6. Abdominal aortography. This showed mild plaque disease and with the right common iliac artery that is occluded at its ostium. The left common iliac artery appears to be have significant calcification with mild plaque disease. The left internal iliac artery is widely patent. The right common femoral artery reconstitutes through lumbar collaterals through the lateral circumflex into the common femoral artery and then into the external iliac artery. Overall occluded segment is around 30 mm in length.Electronically Signed by:Marie Zurita M.D. 02/23/2017 11:49 A Marie Zurita M.D.Date Dict: 02/11/2017/02:36 P/Marie Zurita M.D.Date Trans: 02/12/2017 02:21 A/Jimy_JN:[id number]: Bridget Rojas M.D. [address] [facility] [address] Saw Nath M.D. [address] [place], [place] [id number] Normal [facility] HEMOGLOBIN A1Con 02-12-2017 Glucose mass conc 143 mg/dL High 70-126 [facility] Comment on above: Order Comment: No: D o not add to previous draw Performed By: #### 8 5499 ####[facility] [place] [address], [facility] Hemoglobin A1c/Hemoglobin.total mass fraction (Bld) 6.6 % High 4.0-6.0 [facility] Comment on above: Order Comment: No: D o not add to previous draw Performed By: #### 8 5499 ####[facility] [place] [address], [facility] LIPID PROFILEon 02-12-2017 Cholesterol 107 mg/dL Low 120-200 [facility] Comment on above: Order Comment: No: D o not add to previous draw Result Comment: CHOL ESTEROL REFERENCE RANGE:20 YEARS AND OLDER CARDIOVASCULAR RISKLess than 200 mg/dl Low Tjwv173 to 239 mg/dl Borderline Vsca628 mg/dl and greater High Risk Performed By: #### 4 1000, 79603, 02345, 80125, 57623, 67091 ####[facility] [place] [address], [facility] Cholesterol to HDL Ratio 3.7 {ratio} Normal .0-4.5 [facility] Comment on above: Order Comment: No: D o not add to previous draw Performed By: #### 4 1000, 10119, 62593, 90622, 11402, 19250 ####[facility] [place] [address], [facility] HDL Cholesterol 29 mg/dL Normal 23-92 [facility] Comment on above: Order Comment: No: D o not add to previous draw Result Comment: Slig ht variation in normal range could be due to gender and/or age.HDL CHOLESTEROL REFERENCE RANGE:20 years and older Cardiovascular Risk> or =60 mg/dL [id number] TO 59 mg/dL Low Risk<40 mg/dL High Risk Performed By: #### 4 1000, 74569, 71385, 15592, 74687, 99980 ####[facility] [place] [address], [facility] LDL Cholesterol 63 mg/dL Normal 0-130 [facility] Comment on above: Order Comment: No: D o not add to previous draw Result Comment: LDL IS A CALCULATIONLDL IS ONLY VALID IF THE TRIG IS LESS THAN 400. Performed By: #### 4 1000, 90691, 56795, 90021, 46532, 71296 ####[facility] NON-HDL CHOLESTEROL 78 mg/dL Normal [facility] Comment on above: Order Comment: No: D o not add to previous draw Performed By: #### 4 1000, 05945, 21720, 61075, 40504, 78333 ####[facility] Triglyceride 75 mg/dL Normal 40-149 [facility] Comment on above: Order Comment: No: D o not add to previous draw Result Comment: TRIG LYCERIDE REFERENCE RANGE:20 YEARS AND OLDER CARDIOVASCULAR RISKLESS THAN 150 mg/dl LOW [id number] TO 199 mg/dl BORDERLINE [id number] mg/dl AND GREATER HIGH RISK Performed By: #### 4 1000, 23510, 88425, 16187, 55081, 32910 ####[facility] VLDL CHOL 15 mg/dL Normal 0-40 [facility] Comment on above: Order Comment: No: D o not add to previous draw Performed By: #### 4 1000, 58742, 36029, 34727, 40971, 82250 ####[facility] MAGNESIUM BLOODon 02-12-2017 Magnesium 1.7 mg/dL Low 1.9-2.7 [facility] Comment on above: Order Comment: No: D o not add to previous draw Performed By: #### 4 1000, 70638, 87781, 44503, 63188, 36704 ####[facility] [place] [address], [facility] PHOSPHORUS BLOODon 7 Phosphate 3.7 mg/dL Normal 2.5-5.0 [facility] Comment on above: Order Comment: No: D o not add to previous draw Performed By: #### 4 1000, 03670, 46415, 17068, 24193, 96452 ####[facility] [place] [address], [facility] POC GLUCOSE LABon 02-12-2017 Glucose mass conc 297 mg/dL High 70-100 [facility] Comment on above: Performed By: #### 8 5499 ####[facility] [place] [address], [facility] Glucose mass conc 184 mg/dL High 70-100 [facility] Comment on above: Performed By: #### 8 5499 ####[facility] [place] [address], [facility] PORTABLE CHEST 1 VIEWon 01-22 PORTABLE CHEST 1 VIEW [facility] [address] [place] [id number] Patient Name: ELVIRA BERGMAN : 2Sex: MAge: Race: WhiteMRN: [id number]. Location: [id number] Status: IVisit #: [id number] Date: 02/12/2017 6:55:00 AMCompleted Date: 02/12/2017 07:59 AMRequesting Provider: MARIA LUISA COATES Attending Provider: MABEL RAMSAY V Report Copy To: Signs & Symptoms: Chest PainHistory: Patient history not availableComments: R/O CardiomegalyExam: PORTABLE CHEST 1 VIEWAccession #: [id number] POR TABLE CHEST 1 VIEW 02/12/2017 7:59 AM EDT SIGNS AND SYMPTOMS: Chest Pain TECHNOLOGIST COMMENTS: shortness of breath QUESTION FOR THE RADIOLOGIST: R/O Cardiomegaly PROTOCOL: AP(PA) view was obtained. COMPARISON: None FINDINGS: Trachea is midline. Cardiomediastinal silhouette at upper limit of normal. Lungs are clear with no focal airspace disease. Minimal bibasilar atelectasis. No pleural effusion. No pneumothorax. Age-appropriate osseous structure. No free air under diaphragm. IMPRESSION: No radiographic evidence of acute cardiac pulmonary process. No cardiomegaly. Approved by:Apolonia Boston on 02/12/2017 9:08 AM EDT. I, Shalini Garcia, have reviewed the images and report and concur with these findings. Electronically signed by:Shalini Garcia. Transcribed by: [email or web address], User Resident: APOLONIA BOSTONElectronically Signed by: SHALINI GARCIA @ 02/12/2017 04:06 PMI personally read this/these film(s) with this resident Normal [facility] Comment on above: Order Comment: R/O C ardiomegaly TROPONIN-Ion 02-12-2017 Troponin I.cardiac mass conc 0.06 ng/mL High 0.00-0.04 [facility] Comment on above: Result Comment: REFE RENCE RANGES: 0.00 - 0.04 ng/ml NORMAL 0.05 - 0.50 ng/ml INDETERMINATE > 0.50 ng/ml CONSISTENT WITH AN M.I. Performed By: #### 4 1000, 76662, 66938, 22950, 11488, 96438 ####[facility] [place] [address], [facility] POC GLUCOSE LABon 02-11-2017 Glucose mass conc 224 mg/dL High 70-100 [facility] Comment on above: Performed By: #### 8 5499 ####[facility] [place] [address], [facility] Glucose mass conc 158 mg/dL High 70-100 [facility] Comment on above: Performed By: #### 8 5499 ####[facility] [place] [address], [facility] Vital Signs Date Time Vital Sign Value Performing Clinician Zena cedillo 07-12-2023 08:30-0500 Diastolic blood pressure 67 mm[Hg] DO Jasiel Cotton Work Phone: [facility] 07-12-2023 08:30-0500 Heart rate 67 /min DO Jasiel Cotton Work Phone: [facility] 07-12-2023 08:30-0500 Respiratory rate 16 /min DO Jasiel Cotton Work Phone: [facility] 07-12-2023 08:30-0500 Systolic blood pressure 138 mm[Hg] DO Jasiel Cotton Work Phone: [facility] 07-12-2023 06:31-0500 SaO2% (BldA) [Mass fraction] 97 % DO Jasiel Cotton Work Phone: [facility] 07-12-2023 04:55-0500 Body temperature 98 [degF] DO Jasiel Cotton Work Phone: [facility] 07-11-2023 16:46-0500 Body height 185.42 cm DO Jasiel Cotton Work Phone: [facility] 07-11-2023 16:46-0500 Body weight 88.9 kg DO Jasiel Cotton Work Phone: [facility] Encounters Encounter Date Encounter Type Care Provider Facility Start: 07-19-2023 End: 07-29-2023 Evaluation and management of inpatient PRERNA FISHER [facility] Start: 07-12-2023 End: 07-19-2023 Evaluation and management of inpatient ALISON MAE [facility] Start: 07-11-2023 End: 07-12-2023 Emergency department patient visit Jasiel Leo Manzanaresze Facility:[facility] Start: 07-11-2023 End: 07-12-2023 Emergency department patient visit DO Jasiel Cotton Work Phone: [facility] Work Phone: Start: 09-20-2022 End: 10-20-2022 ambulatory MORALEZ H MATTHEWWWAD Facility:[facility] Start: 09-08-2022 End: 09-09-[address] BRIDGET ROJAS . Facility:[facility] Start: 09-07-2022 End: 09-07-2022 ambulatory COLTON DOWLING . Facility:[facility] Start: 08-23-2022 End: 09-17-2022 ambulatory MORALEZ H FAWWAD Facility:[facility] Start: 07-21-2022 End: 08-20-2022 ambulatory MORALEZ H FAWWAD Facility:[facility] Start: 07-06-2022 End: 07-07-[address] BRIDGET ROJAS . Facility:[facility] Start: 06-23-2022 End: 07-21-2022 ambulatory MORALEZ H FAWWAD Facility:[facility] Start: 05-24-2022 End: 06-23-2022 ambulatory MORALEZ H FAWWAD Facility:[facility] Start: 04-22-2022 End: 05-23-2022 ambulatory MORALEZ H FAWWAD Facility:[facility] Start: 04-19-2022 End: 04-21-[address] BRIDGET ROJAS . Facility:[facility] Start: 04-03-2022 End: 04-03-[address] BRIDGET ROJAS . Facility:[facility] Start: 03-23-2022 End: 04-21-2022 ambulatory MORALEZ H FAWWAD Facility:[facility] Start: 03-12-2022 End: 03-12-2022 ambulatory [facility] Start: 02-22-2022 End: 03-22-2022 ambulatory MORALEZ H FAWWAD Facility:[facility] Start: 02-19-2022 ambulatory [facility] Start: 02-18-2022 End: 02-18-2022 Evaluation and management of inpatient MORALEZ H FAWWAD Facility:[facility] Start: 02-02-2022 End: 02-20-2022 ambulatory MORALEZ H FAWWAD Facility:[facility] Start: 2021 End: 12-24-[address] BRIDGET ROJAS . Facility:[facility] Start: 11-17-2021 End: 11-17-[address] BRIDGET ROJAS . Facility: Start: 05-01-2019 End: 05-02-2019 ambulatory Hardik DONALD Facility:CD:[id number] Start: 02-11-2017 End: 02-12-2017 Evaluation and management of inpatient PROVIDER UNKNOWN Facility:[facility] Procedures Date Procedure Procedure Detail Performing Clinician Start: 07-11-2023 Computed tomography of abdomen and pelvis with contrast DO [employer] Work Phone: Start: 07-11-2023 CT of thorax with contrast DO [employer] Work Phone: Start: 07-11-2023 CT angiography of ne ck vessels DO [employer] Work Phone: Start: 07-11-2023 CT cervical spine wi thout contrast DO [employer] Work Phone: Start: 07-11-2023 CT of head without contrast DO [employer] Work Phone: Start: 07-11-2023 End: 07-11-2023 Plain chest X-ray DO [employer] Work Phone: Start: 02-11-2017 DILATION OF 1 COR AR T WITH DRUG-ELUT INTRA, PERC APPROACH MARIE ZURITA Start: 02-11-2017 FLUOROSCOPY OF AORTA , BI LE ART USING OTH CONTRAST MARIE ZURITA Plan of Treatment Date Care Activity Detail Author Patient referral [facility] Work Phone: Immunizations Immunization Date Immunization Notes Care Provider Matthew rosalesty 07-11-2023 tetanus toxoid, redu breezy diphtheria toxoid, and acellular pertussis vaccine, adsorbed DO [employer] Work Phone: [facility] Payers Date Payer Category Payer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
[2023-08-17 09:06] LABS: Basophils Absolute Auto 0.1 10^3/uL (0.0-0.1); Basophils Percent Auto 0.9 % (0.2-2.0); Eosinophils Absolute Auto 0.1 10^3/uL (0.0-0.7); Eosinophils Percent Auto 0.5 % (0.9-7.0); Hematocrit 43.7 % (42.0-54.0); Hemoglobin 13.7 g/dL (14.0-18.0); Immature Granulocytes Abs Auto 0.03 10^3/uL (0.00-0.03); Immature Granulocytes Pct Auto 0.3 % (0.0-0.5); Lymphocytes Absolute Auto 1.6 10^3/uL (1.2-3.8); Lymphocytes Percent Auto 15.6 % (20.5-60.0); Mean Corpuscular HGB Conc 31.4 g/dL (29.9-35.2); Mean Corpuscular Hemoglobin 31.2 pg (25.9-34.0); Mean Corpuscular Volume 99.5 fL (80.0-94.0); Mean Platelet Volume 9.9 fL (9.5-13.5); Monocytes Absolute Auto 0.9 10^3/uL (0.3-0.8); Monocytes Percent Auto 8.7 % (1.7-12.0); Neutrophils Absolute Auto 7.4 10^3/uL (1.4-6.5); Platelet Count 266 10^3/uL (150-450); Red Blood Count 4.39 10^6/uL (4.70-6.10); Red Cell Distribution Width 15.9 % (11.0-15.0); White Blood Count 9.9 10^3/uL (4.0-11.0)
[2023-08-17 09:27] LABS: Estimated Average Glucose 146 mg/dL; Glycohemoglobin A1C 6.7 % (4.5-6.2)
[2023-08-17 10:17] LABS: Prostate Specific Antigen Scrn 0.45 ng/mL (<=4.00)
[2023-08-17 10:38] LABS: Alanine Aminotransferase 37 U/L (16-63); Albumin Level 3.6 g/dL (3.4-5.0); Alkaline Phosphatase 140 U/L (46-116); Anion Gap 15.9; Aspartate Amino Transferase 17 U/L (15-37); BUN Creatinine Ratio 28.5; Bilirubin Total 0.4 mg/dL (0.2-1.0); Calcium 9.1 mg/dL (8.5-10.1); Carbon Dioxide 25.8 mmol/L (21.0-32.0); Chloride 104 mmol/L (98-107); Chol HDL Ratio 2.1; Cholesterol 109 mg/dL (<=200); Estimated GFR (African America 57 (>=60); Estimated GFR (Non-African Ame 47 (>=60); Free T3 2.22 pg/mL (2.18-3.98); Globulin 3.7 g/dL; Glucose 114 mg/dL (74-106); HDL Cholesterol 52 mg/dL (40-60); LDL Cholesterol Calculated 45.8 mg/dL; Potassium 4.7 mmol/L (3.5-5.1); Sodium 141 mmol/L (136-145); Thyroid Stimulating Hormone 1.672 uIU/mL (0.358-3.740); Total Protein 7.3 g/dL (6.4-8.2); Triglycerides 56 mg/dL (<=150); VLDL CHOLESTEROL 11.2 mg/dL
== END 2023-08-17 08:42 | disposition home or self-care (01) ==
LOC: LAB 08:44
PROVIDERS: PCP Family Medicine; Visit Provider Family Medicine
DX: Z00.00 Encounter for general adult medical examination without abnormal findings (principal); E78.5 Hyperlipidemia, unspecified; R53.83 Other fatigue; I10 Essential (primary) hypertension; Z12.5 Encounter for screening for malignant neoplasm of prostate; R73.09 Other abnormal glucose
CPT/HCPCS: 36415; 80053; 80061; 83036; 84439; 84443; 84481; 85025; G0103

== ENCOUNTER 2023-08-22 03:15 | Outpatient (RCR) | payer MEDICARE, OTHER, SELFPAY | END 2023-09-20 18:08 | disposition home or self-care (01) | LOC: MM 03:15 | PROVIDERS: PCP Family Medicine; Visit Provider Internal Medicine | DX: Z51.81 Encounter for therapeutic drug level monitoring (principal); Z79.01 Long term (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 of anticoagulants; I48.0 Paroxysmal atrial fibrillation | CPT/HCPCS: 85610; G0463 ==

== ENCOUNTER 2023-09-21 04:41 | Outpatient (RCR) | payer MEDICARE, OTHER, SELFPAY | END 2023-10-21 12:03 | disposition home or self-care (01) | LOC: MM 04:41 | PROVIDERS: PCP Family Medicine; Visit Provider Internal Medicine | DX: Z51.81 Encounter for therapeutic drug level monitoring (principal); Z79.01 Long term (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 of anticoagulants; I48.0 Paroxysmal atrial fibrillation | CPT/HCPCS: 85610; G0463 ==

== ENCOUNTER 2023-10-24 00:29 | Outpatient (RCR) | payer MEDICARE, OTHER, SELFPAY | END 2023-11-18 11:09 | disposition home or self-care (01) | LOC: MM 00:29 | PROVIDERS: PCP Family Medicine; Visit Provider Internal Medicine | DX: Z51.81 Encounter for therapeutic drug level monitoring (principal); Z79.01 Long term (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 of anticoagulants; I48.0 Paroxysmal atrial fibrillation | CPT/HCPCS: 85610; G0463 ==

== ENCOUNTER 2023-11-21 00:55 | Outpatient (RCR) | payer MEDICARE, OTHER, SELFPAY | END 2023-12-21 16:53 | disposition home or self-care (01) | LOC: MM 00:55 | PROVIDERS: PCP Family Medicine; Visit Provider Internal Medicine | DX: Z51.81 Encounter for therapeutic drug level monitoring (principal); Z79.01 Long term (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 of anticoagulants; I48.0 Paroxysmal atrial fibrillation | CPT/HCPCS: 85610; G0463 ==

== ENCOUNTER 2023-12-22 00:38 | Outpatient (RCR) | payer MEDICARE, OTHER, SELFPAY | END 2024-01-20 09:49 | disposition home or self-care (01) | LOC: MM 00:38 | PROVIDERS: PCP Family Medicine; Visit Provider Internal Medicine | DX: Z51.81 Encounter for therapeutic drug level monitoring (principal); Z79.01 Long term (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 of anticoagulants; I48.0 Paroxysmal atrial fibrillation | CPT/HCPCS: 85610; G0463 ==

== ENCOUNTER 2024-01-23 01:25 | Outpatient (RCR) | payer MEDICARE, OTHER, SELFPAY | END 2024-02-20 23:39 | disposition home or self-care (01) | LOC: MM 01:25 | PROVIDERS: PCP Family Medicine; Visit Provider Internal Medicine | DX: Z51.81 Encounter for therapeutic drug level monitoring (principal); Z79.01 Long term (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 of anticoagulants; I48.0 Paroxysmal atrial fibrillation | CPT/HCPCS: 85610; G0463 ==

== ENCOUNTER 2024-02-21 01:39 | Outpatient (RCR) | payer MEDICARE, OTHER, SELFPAY | END 2024-03-22 23:11 | disposition home or self-care (01) | LOC: MM 01:39 | PROVIDERS: PCP Family Medicine; Visit Provider Internal Medicine | DX: Z51.81 Encounter for therapeutic drug level monitoring (principal); Z79.01 Long term (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 of anticoagulants; I48.0 Paroxysmal atrial fibrillation | CPT/HCPCS: 85610; G0463 ==

== ENCOUNTER 2024-03-23 11:52 | Outpatient (RCR) | payer MEDICARE, OTHER, SELFPAY | END 2024-04-21 23:59 | disposition home or self-care (01) | LOC: MM 11:52 | PROVIDERS: PCP Family Medicine; Visit Provider Internal Medicine | DX: Z51.81 Encounter for therapeutic drug level monitoring (principal); Z79.01 Long term (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 of anticoagulants; I48.0 Paroxysmal atrial fibrillation | CPT/HCPCS: 85610; G0463 ==

== ENCOUNTER 2024-04-23 04:07 | Outpatient (RCR) | payer MEDICARE, OTHER, SELFPAY | END 2024-05-22 09:32 | disposition home or self-care (01) | LOC: MM 04:07 | PROVIDERS: PCP Family Medicine; Visit Provider Internal Medicine | DX: Z51.81 Encounter for therapeutic drug level monitoring (principal); Z79.01 Long term (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 of anticoagulants; I48.0 Paroxysmal atrial fibrillation | CPT/HCPCS: 85610; G0463 ==

== ENCOUNTER 2024-05-24 00:44 | Outpatient (RCR) | payer MEDICARE, OTHER, SELFPAY | END 2024-06-22 14:50 | disposition home or self-care (01) | LOC: MM 00:44 | PROVIDERS: PCP Family Medicine; Visit Provider Internal Medicine | DX: Z51.81 Encounter for therapeutic drug level monitoring (principal); Z79.01 Long term (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 of anticoagulants; I48.0 Paroxysmal atrial fibrillation | CPT/HCPCS: 85610; G0463 ==

== ENCOUNTER 2024-06-25 02:27 | Outpatient (RCR) | payer MEDICARE, OTHER, SELFPAY | END 2024-07-20 13:37 | disposition home or self-care (01) | LOC: MM 02:27 | PROVIDERS: PCP Family Medicine; Visit Provider Internal Medicine | DX: Z51.81 Encounter for therapeutic drug level monitoring (principal); Z79.01 Long term (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 of anticoagulants; I48.0 Paroxysmal atrial fibrillation | CPT/HCPCS: 85610; G0463 ==

== ENCOUNTER 2024-07-22 07:36 | Outpatient (RCR) | payer MEDICARE, OTHER, SELFPAY | END 2024-08-17 13:18 | disposition home or self-care (01) | LOC: MM 07:36 | PROVIDERS: PCP Family Medicine; Visit Provider Internal Medicine | DX: Z51.81 Encounter for therapeutic drug level monitoring (principal); Z79.01 Long term (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 of anticoagulants; I48.0 Paroxysmal atrial fibrillation | CPT/HCPCS: 85610; G0463 ==

== ENCOUNTER 2024-08-08 11:29 | Outpatient (OUT) | payer MEDICARE, OTHER, SELFPAY ==
--- OUTSIDE RECORDS SUMMARY | 2024-08-08 11:43 | XMS_ITS | CCD ---
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 07-20-2023 07-20-2023 Episodic Unclassified (1 source) LOW BACK PAIN, UNSPECIFIED; Translations: [LOW BACK PAIN, UNSPECIFIED] Onset: 09-07-2022 Results Test Name Value Interpretation Reference Range Facility OCT MACULA CIRRUS OU (BOTH E YES)on 07-25-2024 [facility] Study observation (narrative) [facility] POTASSIUMon 07-25-2024 Potassium [Moles/Vol] 4.9 mmol/L Normal 3.7-5.1 [facility] Comment on above: Order Comment: Speci men Type: BLOOD SPECIMENOrdering Facility: [facility] Address: [address] [place] [address] Performed By: #### K 1 ####[facility] LABCLIA [id number] [place] [id number] [place] CNPNatalie 07-18-2024 CNPN Telephone (SANTOS) -- ELVIRA BERGMAN ([id number]) 1940 M Date Time Provider Department 07/18/24 PACC CHRISTINE GRAHAM During your visit today, we recorded the following information about you: Corinna Murry LPN 07/18/2024 8:23 AM Signed Per Christie Cassidy CNP, patient's potassium is elevated. I called and spoke with patient's nephew, Reid. He is aware patient needs to hold potassium supplement, increase hydration and avoid high potassium foods. Reid is aware patient needs to go to any [facility] lab next week for repeat lab. Corinna Murry LPN July 18, 2024 8:23 AM Allergies As of Date: 07/18/2024 Noted Allergy Reaction APIXABAN 10/24/2023 12 - Shortness of Breath Comments: Shortness of breath Date Reviewed: 07/16/2024 Reviewed by: Christie Cassidy APRN.CASSANDRA - Fully Assessed Reason for Visit: Results [95] Prescriptions as of 07/18/2024 - prednisoLONE acetate (PRED FORTE) 1 % ophthalmic suspension 1 drop in the operative eye 4 times daily for 7 days after surgery, then taper as directed. - keTORolac (ACULAR) 0.5 % ophthalmic solution Use one drop in operative eye as directed by Dr. Sprague starting tomorrow. - atenolol (TENORMIN) 50 mg tablet Take 1 tablet by mouth every 12 hours. - atorvastatin (LIPITOR) 80 mg tablet Take 1 tablet by mouth every afternoon. - finasteride (PROSCAR) 5 mg tablet Take 1 tablet by mouth every afternoon. - furosemide (LASIX) 40 mg tablet TAKE 1 TABLET BY MOUTH ONCE EVERY MORNING 30 - glipiZIDE (GLUCOTROL) 5 mg tablet Take 1 tablet by mouth every 12 hours. - lisinopril (ZESTRIL) 20 mg tablet Take 1 tablet by mouth every afternoon. - metFORMIN (GLUCOPHAGE) 500 mg tablet Take 1 tablet by mouth every 12 hours. - amLODIPine (NORVASC) 2.5 mg tablet - vit C/E/zinc ox/sara/lut/zeax (ICAPS AREDS2 ORAL) Take by mouth. - warfarin (COUMADIN) 3 mg tablet Take by mouth. - nitroglycerin sublingual (NITROQUICK) 0.4 mg SL tablet Dissolve under the tongue. - KLOR-CON M20 20 mEq tablet Take 20 mEq by mouth two times a day. - tamsulosin (FLOMAX) 0.4 mg Take 0.4 mg by mouth once daily. 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*02/23/2024 Nonexudative age-related macular degeneration, *02/23/2024 Dermatochalasis of both upper eyelids [H02.831,*02/23/2024 Regular astigmatism of both eyes [H52.223] 02/23/2024 Chronic systolic heart failure (HCC) [I50.22] 01/30/2022 Congestive heart failure (HCC) [I50.9] 09/20/2012 Coronary atherosclerosis [I25.10] 09/20/2012 Essential hypertension [I10] 01/30/2022 Benign prostatic hyperplasia without urinary ob*07/13/2023 Persistent atrial fibrillation (HCC) [I48.19] 01/13/2022 Pure hypercholesterolemia [E78.00] 07/13/2023 Type 2 diabetes mellitus without complication (*09/26/2012 Combined form of age-related cataract, left eye*06/22/2024 Pseudophakia, right eye [Z96.1] 06/22/2024 Strabismus [H50.9] 06/28/[address] elevation myocardial infarction (STEMI*07/13/2024 07/16/2024 Fracture of neck, unspecified, sequela [S12.9XX*07/13/2024 Encounter Status:Closed by CORINNA MURRY on 07/18/24 Normal [facility] ASCAN ONLY - DIAGNOSTIC OS ( LEFT EYE)on 07-16-2024 [facility] Study observation (narrative) [facility] Basic metabolic 2000 panelon 07-16-2024 Anion gap [Moles/Vol] 10 mmol/L Normal 8-15 [facility] Comment on above: Order Comment: Speci men Type: BLOOD SPECIMENOrdering Facility: [facility] Address: [address] [place] [address] Performed By: #### 2 4321-2 ####[facility] LABCLIA [id number] [address] [address] [place] Calcium [Mass/Vol] 9.3 mg/dL Normal 8.5-10.2 [facility] Comment on above: Order Comment: Speci men Type: BLOOD SPECIMENOrdering Facility: [facility] Address: [address] [place] [address] Performed By: #### 2 4321-2 ####[facility] LABCLIA [id number] [place] [id number] [place] Chloride [Moles/Vol] 105 mmol/L Normal 98-107 [facility] Comment on above: Order Comment: Speci men Type: BLOOD SPECIMENOrdering Facility: [facility] Address: [address] [place] [address] Performed By: #### 2 4321-2 ####[facility] LABCLIA [id number] [place] [address] [place] CO2 [Moles/Vol] 24 mmol/L Normal 22-30 [facility] Comment on above: Order Comment: Speci men Type: BLOOD SPECIMENOrdering Facility: [facility] Address: [address] [place] [address] Performed By: #### 2 4321-2 ####[facility] LABCLIA [id number] [place] [address] [place] Creatinine [Mass/Vol] 1.49 mg/dL High 0.73-1.22 [facility] Comment on above: Order Comment: Speci men Type: BLOOD SPECIMENOrdering Facility: [facility] Address: [address] [place] [address] Performed By: #### 2 4321-2 ####[facility] LABCLIA [id number] [place] [id number] [place] Creatinine and Glomerular filtration rate.predicted panel (S/P/Bld) 47 mL/min/1.73m??? Low >=60 [facility] Comment on above: Order Comment: Laurita lloyd Type: BLOOD SPECIMENOrdering Facility: [facility] Address: [address] [place] [address] Result Comment: Lita mated Glomerular Filtration Rate (eGFR) is calculated using the 2020 CKD-EPI creatinine equation. This equation utilizes serum creatinine, sex, and age as parameters. The creatinine assay has traceable calibration to isotope dilution-mass spectrometry. Refer to KDIGO guidelines for clinical interpretation. In patients with unstable renal function, e.g. those with acute kidney injury, the eGFR may not accurately reflect actual GFR. Performed By: #### 2 4321-2 ####[facility] [id number] [place] [address] [place] Glucose [Mass/Vol] 137 mg/dL High 74-99 [facility] Comment on above: Order Comment: Laurita lloyd Type: BLOOD SPECIMENOrdering Facility: [facility] Address: [address] [place] [address] Result Comment: The [place] Diabetes Association (ADA) provides guidance for cutoff values for fasting glucose and random glucose. The ADA defines fasting as no caloric intake for at least 8 hours. Fasting plasma glucose results between 100 to 125 mg/dL indicate increased risk for diabetes (prediabetes). Fasting plasma glucose results greater than or equal to 126 mg/dL meet the criteria for diagnosis of diabetes. In the absence of unequivocal hyperglycemia, results should be confirmed by repeat testing. In a patient with classic symptoms of hyperglycemia or hyperglycemic crisis, random plasma glucose results greater than or equal to 200 mg/dL meet the criteria for diagnosis of diabetes. Reference: Standards of Medical Care in Diabetes 2016, [place] Diabetes Association. Diabetes Care. 2016.39(Suppl 1). Performed By: #### 2 4321-2 ####[facility] [id number] [place] [address] [place] Potassium [Moles/Vol] 5.7 mmol/L High 3.7-5.1 [facility] Comment on above: Order Comment: Laurita lloyd Type: BLOOD SPECIMENOrdering Facility: [facility] Address: [address] [place] [address] Performed By: #### 2 4321-2 ####[facility] LABCLIA [id number] [place] [id number] [place] Sodium [Moles/Vol] 139 mmol/L Normal 136-144 [facility] Comment on above: Order Comment: Speci men Type: BLOOD SPECIMENOrdering Facility: [facility] Address: [address] [place] [address] Performed By: #### 2 4321-2 ####[facility] LABIA [id number] [place] [address] [place] Urea nitrogen [Mass/Vol] 23 mg/dL Normal 9-24 [facility] Comment on above: Order Comment: Speci men Type: BLOOD SPECIMENOrdering Facility: [facility] Address: [address] [place] [address] Performed By: #### 2 4321-2 ####[facility] LABIA [id number] [place] [id number] [place] HISTORY PHYSICALon HISTORY PHYSICAL HNO ID: [id number] Author: CHRISTIE CASSIDY APRN.EYEGLASS ASSEMBLER Service: ? Author Type: Nurse Practitioner Type: H&P Filed: 07/25/2024 12:52 Note Text: HISTORY AND PHYSICAL EXAMINATION SERVICE DATE: 07/16/2024 SERVICE TIME: 10:24 AM PRIMARY CARE PHYSICIAN: Bridget Farley MD REASON FOR VISIT: Elvira Bergmna is a 83 year old male who is scheduled for Left - PHACOEMULSIFICATION CATARACT IMPLANT INTRAOCULAR LENS W/O ENDOSCOPIC CYCLOPHOTOCOAGULATION Left - OPHTHALMIC BIOMETRY BY PARTIAL COHERENCE INTERFEROMETRY W/INTRAOCULAR LENS POWER CALCULATION at the request of Dr. Ramin Sprague for consultation. My final recommendation will be communicated back to the requesting physician by way of shared medical record or letter. Assessment Benign prostatic hyperplasia without urinary obstruction Assessment: stable on flomax Type 2 diabetes mellitus without complication (HCC) Assessment: Currently taking metformin, glipizide Hemoglobin A1C (%) Date Value 07/16/2024 6.4 Persistent atrial fibrillation (HCC) Assessment: stable on coumadin, NSR today, follows with pcp Coronary atherosclerosis Assessment: stable with history of PCI. On coumadin Essential hypertension Assessment: stable and compliant with current medications Last 5 Encounter BP Readings: Date: BP: 07/16/2024 115/64 04/11/2024 101/59 03/14/2024 93/58 02/23/2024 100/55 Pure hypercholesterolemia Assessment: stable with current medication regimen Chronic systolic heart failure (HCC) Assessment: stable, on lasix, euvolemic, compensated today ANESTHESIA FINDINGS: Intubation History: No history of difficult intubation Significant Anesthesia Considerations: none Airway History: No history of difficult airway Fung Activity Status Index: METS: Walk indoors, such as around the house (1.75 METs) Do light work around the house, such as dusting or washing dishes (2.70 METs) Take care of self; that is eating, dressing, bathing, using the toilet (2.75 METs) Walk a block or two on level ground (2.75 METs) Do moderate work around the house, such as vacuuming, sweeping floors, or carrying in groceries (3.50 METs) Climb a flight of stairs or walk up a hill (5.50 METs) DASI Score: 18.95 Patient denies any chest pain or undue shortness of breath with the above physical activity. Clinical Frailty Scale: 4. Apparently vulnerable STOP-Bang Score: Has or is being treated for high blood pressure Patient over 50 years old Male patient Denies snoring loudly Denies feeling tired, fatigued, or sleepy during the daytime Has not been observed to stop breathing or choking/gasping during sleep BMI less than or equal to 35 kg/m2 Does not have a large neck STOP-Bang Score: 3 [id number] Score: Age: >=75 Sex: male CHF history: Yes Hypertension history: Yes Stroke/TIA/thromboembolism history: No Vascular disease history: Yes Diabetes history: Yes [id number] Score: 6 ARISCAT Score: Age: >80 Preoperative SpO2: >=96% Respiratory infection in the last month: No Duration of surgery: <2 hrs Emergency procedure: No ARISCAT Score: I - PHYSICAL EVALUATION AIRWAY Patient intubated: No. Tracheostomy tube not present Mallampati: II. TM distance: >3 FB. Neck ROM: full ROM without neurological symptoms. Mouth opening: adequate. Short neck: no. Thick neck: no Resendez present: no Lip Bite Test: II Microretrognathia/Micronag thia/Recessed Chin: No DENTAL Dental findings: edentulous. II - ANESTHESIA PLAN Anesthetic plan additional comments: *PACC/TCI - anesthesia choice. Beta Mer Monitoring Plan Post Procedure Analgesic Plan Prepared for surgery: This patient is optimally prepared for surgery. Previously had right cataract done at [facility] on 04/11/24. CONSULTS: Patient does not require consults for optimization at this time. The Following Tests/Procedures Have Been Initiated: Orders Placed This Encounter Hemoglobin A1C Standing Status: Future Expected Date: 07/16/2024 Expiration Date: 10/15/2024 BMP Standing Status: Future Expected Date: 07/16/2024 Expiration Date: 10/15/2024 Planned Anesthetic: Per anesthesia choice Subjective CHIEF COMPLAINT: Nuclear senile cataract of left eye [H25.12] HPI: Patient is a 83 year old MALE presenting for pre-op evaluation for the above procedure. Patient states decline in vision from cataracts impairs activities of daily living. Patient denies any chest pain, shortness of breath, palpitations, fever/chills, nausea/vomiting, fatigue, or diarrhea. REVIEW OF SYSTEMS: PAIN ASSESSMENT: General: No weight loss, malaise or fevers. Neuro: No history of TIA's, stroke, CHALK TESTER tumor, impaired sensorium, hemiplegia, paraplegia or quadraplegia. No neurological symptoms or problems. Respiratory: Positive for former smoker, Negative for Current cough, Pneumonia within 6 weeks (date) Cardiovascular: Positive for: HTN, HLD, Afib, CAD, CHF, (more content not included)... Normal [facility] HbA1c (Bld)on 07-16-2024 Average glucose Estimated from glycated hemoglobin (Bld) [Mass/Vol] 137 mg/dL Normal [facility] Comment on above: Order Comment: Speci men Type: BLOOD SPECIMENOrdering Facility: [facility] Address: [address] [address] Result Comment: eAG: (Estimated average glucose) is a calculated value from HgbA1c and is technical support representative of the average blood glucose level in the last 2-3 month period. Performed By: #### 5 5454-3 ####[facility] LABIA [id number] [place] [address] [place] HbA1c (Bld) [Mass fraction] 6.4 % High 4.3-5.6 [facility] Comment on above: Order Comment: Speci men Type: BLOOD SPECIMENOrdering Facility: [facility] Address: [address] [place] [address] Result Comment: [place] Diabetes Association guidelines indicate that patients with HgbA1c in the range 5.7-6.4% are at increased risk for development of diabetes, and intervention by lifestyle modification may be beneficial. HgbA1c greater or equal to 6.5% is considered diagnostic of diabetes. Performed By: #### 5 5454-3 ####[facility] LABIA [id number] [address] [place] IOL BIOMETRY W/ IOL CALC OS (LEFT EYE)on 07-16-2024 [facility] Study observation (narrative) [facility] EYLEA (AFLIBERCEPT) 2MG INTR AVITREAL INJECTION OS (LEFT EYE)on 06-20-2024 [facility] OCT MACULA CIRRUS OU (BOTH E YES)on 06-20-2024 [facility] Study observation (narrative) [facility] Amol 05-03-2024 CASSANDRAN Telephone (OPHTLN) -- ELVIRA BERGMAN ([id number]) 1940 M Date Time Provider Department 05/03/24 RAMIN SPRAGUE OPHANAI During your visit today, we recorded the following information about you: Laura Patel 05/03/2024 11:12 AM Signed Pt went to see at [facility] at the the one week follow up told the pt to start over with their eye drops. They are currently following the second week instructions 3 times a day. Pt stated they are almost out drops. Only enough for about the rest of the day. Laura Patel 05/04/2024 2:49 PM Signed Pt picked up script Allergies As of Date: 05/03/2024 Noted Allergy Reaction APIXABAN 10/24/2023 12 - Shortness of Breath Comments: Shortness of breath Date Reviewed: 04/25/2024 Reviewed by: Danette Fritz COT - Fully Assessed Reason for Visit: Medication Problem [65] Prescriptions as of 05/04/2024 - prednisoLONE acetate (PRED FORTE) 1 % ophthalmic suspension 1 drop in the operative eye 4 times daily for 7 days after surgery, then taper as directed. - keTORolac (ACULAR) 0.5 % ophthalmic solution Use one drop in operative eye as directed by Dr. Sprague starting tomorrow. - atenolol (TENORMIN) 50 mg tablet Take 1 tablet by mouth every 12 hours. - atorvastatin (LIPITOR) 80 mg tablet Take 1 tablet by mouth every afternoon. - finasteride (PROSCAR) 5 mg tablet Take 1 tablet by mouth every afternoon. - furosemide (LASIX) 40 mg tablet TAKE 1 TABLET BY MOUTH ONCE EVERY MORNING 30 - glipiZIDE (GLUCOTROL) 5 mg tablet Take 1 tablet by mouth every 12 hours. - lisinopril (ZESTRIL) 20 mg tablet Take 1 tablet by mouth every afternoon. - metFORMIN (GLUCOPHAGE) 500 mg tablet Take 1 tablet by mouth every 12 hours. - amLODIPine (NORVASC) 2.5 mg tablet - vit C/E/zinc ox/sara/lut/zeax (ICAPS AREDS2 ORAL) Take by mouth. - ofloxacin (OCUFLOX) 0.3 % ophthalmic solution 1 Drop four times daily. One drop in the OPERATIVE EYE only four times a day starting the day before surgery - warfarin (COUMADIN) 3 mg tablet Take by mouth. - nitroglycerin sublingual (NITROQUICK) 0.4 mg SL tablet Dissolve under the tongue. - KLOR-CON M20 20 mEq tablet Take 20 mEq by mouth two times a day. - tamsulosin (FLOMAX) 0.4 mg Take 0.4 mg by mouth once daily. 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*02/23/2024 Nonexudative age-related macular degeneration, *02/23/2024 Dermatochalasis of both upper eyelids [H02.831,*02/23/2024 Regular astigmatism of both eyes [H52.223] 02/23/2024 Chronic systolic heart failure (HCC) [I50.22] 01/30/2022 Congestive heart failure (HCC) [I50.9] 09/20/2012 Coronary atherosclerosis [I25.10] 09/20/2012 Essential hypertension [I10] 01/30/2022 Benign prostatic hyperplasia without urinary ob*07/13/2023 Persistent atrial fibrillation (HCC) [I48.19] 01/13/2022 Pure hypercholesterolemia [E78.00] 07/13/2023 Type 2 diabetes mellitus without complication (*09/26/2012 Encounter Status:Closed by LAURA PATEL on 05/03/24 Normal [facility] EYLEA (AFLIBERCEPT) 2MG INTR AVITREAL INJECTION OS (LEFT EYE)on 04-25-2024 [facility] OCT MACULA CIRRUS OU (BOTH E YES)on 04-25-2024 [facility] Study observation (narrative) [facility] ANES POSTPROC EVALon 024 ANES POSTPROC EVAL HNO ID: [id number] Author: MORRIS BURR MD Service: Anesthesiology Author Type: Physician Type: Anesthesia Postprocedure Evaluation Filed: 04/11/2024 10:51 Note Text: POST ANESTHESIA EVALUATION NOTE : 1940 Procedure Summary Date: 04/11/24 Room / Location: [place] [address] / [facility] Anesthesia Start: 1007 Anesthesia Stop: 1027 Procedures: PHACOEMULSIFICATION CATARACT IMPLANT INTRAOCULAR LENS W/O ENDOSCOPIC CYCLOPHOTOCOAGULATION (Right: Eye) OPHTHALMIC BIOMETRY BY PARTIAL COHERENCE INTERFEROMETRY W/INTRAOCULAR LENS POWER CALCULATION (Right: Eye) Diagnosis: Nuclear senile cataract of right eye (Nuclear senile cataract of right eye [H25.11]) Surgeons: Ramin Sprague MD Responsible Provider: Morris Burr MD Anesthesia Type: MAC ASA Status: 3 Anesthesia Type: MAC Last Vitals Vitals Value Taken Time BP 100/55 04/11/24 1035 Temp 36.5 ?C (97.7 ?F) 04/11/24 1025 Pulse 61 04/11/24 1035 Resp 16 04/11/24 1035 SpO2 95 % 04/11/24 1035 Post Anesthesia Patient Status Patient Evaluation: PACU. PACU/ICU Patient Condition: stable. Anticipated Disposition: phase 2 then home. Neurological Status: aware and responsive. Pulmonary Status: breathing comfortably on room air Airway Control: returned to baseline unsupported. Cardiovascular Status: stable. Pain Management: clinically adequate - multimodal analgesia pain management approach Postoperative Hydration: acceptable. Intraoperative Events: no significant anesthesia events Recommendation: continue current plan of care. Anesthesia Observations No Documentation SIGNATURE: oMrris Burr MD PATIENT NAME: Elvira Bergman DATE: April 11, 2024 TIME: 10:51 AM CSN: [id number] Normal [facility] ANES PRE-OPon 04-11-2024 ANES PRE-OP HNO ID: [id number] Author: MORRIS BURR MD Service: Anesthesiology Author Type: Physician Type: Anesthesia Preprocedure Evaluation Filed: 04/11/2024 09:09 Note Text: ANESTHESIOLOGY DAY OF SURGERY NOTE : 1940 Procedure Information Date/Time: 04/11/24 0950 Procedures: PHACOEMULSIFICATION CATARACT IMPLANT INTRAOCULAR LENS W/O ENDOSCOPIC CYCLOPHOTOCOAGULATION (Right: Eye) OPHTHALMIC BIOMETRY BY PARTIAL COHERENCE INTERFEROMETRY W/INTRAOCULAR LENS POWER CALCULATION (Right: Eye) Location: [address] Surgeons: Ramin Sprague MD Estimated body mass index is 24.52 kg/m? as calculated from the following: Height as of 03/14/24: 182.9 cm (6'). Weight as of 03/14/24: 82 kg (180 lb 12.4 oz). Most recent hematocrit and potassium results: No results found for this basename: HCT,HEMATOCRIT,K,POTASSIUM Relevant Problems CARDIO (+) Congestive heart failure (HCC) (+) Coronary atherosclerosis (+) Essential hypertension (+) Persistent atrial fibrillation (HCC) ENDO (+) Type 2 diabetes mellitus without complication (HCC) I - PHYSICAL EVALUATION AIRWAY Patient intubated: No. Tracheostomy tube not present Mallampati: II. TM distance: >3 FB. Neck ROM: limited extension. Mouth opening: adequate. Short neck: no. Thick neck: no DENTAL Dental findings: poor dentition and missing tooth/teeth. Additional comments: No upper teeth; bottom teeth in poor shape; lost or broke a tooth in a hotdog last week. Additional exam findings: no II - ANESTHESIA PLAN ASA Score: 3 Anesthetic Plan: MAC NPO Status: adequate Beta Mer Monitoring Plan Monitoring plan: standard ASA. Post Procedure Analgesic Plan Postoperative analgesic plan: parenteral or oral opioids and multimodal analgesia. Informed Consent Anesthetic risks, benefits, alternatives, personnel and consent discussed: yes. Patient / Responsible Constitution Party agrees to proceed: yes Patient / Surrogate agrees to blood products: blood products not planned Significant changes in the patient condition since the History and Physical, not otherwise documented in primary service progress note: no. No vitals data found for the desired time range. Facility-Administered Medications as of 04/11/2024 Medication Dose Route Frequency tetracaine (PF) 0.5 % 2 Drop (OPTICAINE) 2 Drop RIGHT EYE EVERY 5 MINUTES X 3 DOSES PHENYLephrine 2.5 % 1 Drop (AK-DILATE, JUAN CARLOS-SYNEPHRINE) 1 Drop RIGHT EYE EVERY 5 MINUTES X 3 DOSES tropicamide 1 % 1 Drop (MYDRIACYL) 1 Drop RIGHT EYE EVERY 5 MINUTES X 3 DOSES cyclopentolate 1 % 1 Drop (CYCLOGYL) 1 Drop RIGHT EYE Pre-Op PRN keTORolac 0.5 % 1 Drop (ACULAR) 1 Drop RIGHT EYE q 5 MIN [COMPLETED] Povidone-Iodine 5 % 30 mL ophth soln (BETADINE) 30 mL RIGHT EYE ONCE [COMPLETED] balanced salt 15 mL (BSS) 15 mL RIGHT EYE ONCE Outpatient Medications as of 04/11/2024 Medication Sig metFORMIN (GLUCOPHAGE) 500 mg tablet Take 1 tablet by mouth every 12 hours. warfarin (COUMADIN) 3 mg tablet Take by mouth. nitroglycerin sublingual (NITROQUICK) 0.4 mg SL tablet Dissolve under the tongue. KLOR-CON M20 20 mEq tablet Take 20 mEq by mouth two times a day. tamsulosin (FLOMAX) 0.4 mg Take 0.4 mg by mouth once daily. I have interviewed and examined the patient. I have reviewed the medical record and/or the pre-anesthesia evaluation, pertinent labs, and test results. This contains updated information obtained within 48 hours of Surgery/Procedure. SIGNATURE: Morris Burr MD PATIENT NAME: Elvira Bergman DATE: April 11, 2024 TIME: 9:08 AM CSN: [id number] Normal [facility] OPERATIVE NOon 04-11-2024 OPERATIVE NO HNO ID: [id number] Author: RAMIN SPRAGUE MD Service: Ophthalmology Author Type: Physician Type: Operative Report Filed: 04/11/2024 10:26 Note Text: OPERATIVE/PROCEDURE REPORT LOG ID: [id number] Surgery/Procedure Date: 04/11/2024 Incision/Procedure Start Time: 10:14 AM Incision Close/Procedure End Time: 10:21 AM Surgeon(s)/Proceduralist(s ) and Brim Stiffener(s): Surgeons and Role: * Ramin Sprague MD - Primary Brim Stiffener: None. Any nurse listed as assisting or otherwise participating in this case has performed only the duties of a circulating nurse. Anesthesia: Monitored Anesthesia Care Pre-Op/Pre-Procedure Diagnosis: Pre-Op Diagnosis Codes: * Nuclear senile cataract of right eye [H25.11] * Regular astigmatism, declined toric Intraocular lens right eye Post-Op/Post-Procedure Diagnosis: Post-Op Diagnosis Codes: * Nuclear senile cataract of right eye [H25.11] * Regular astigmatism, declined toric Intraocular lens right eye Procedure(s): Procedure(s) (LRB): PHACOEMULSIFICATION CATARACT IMPLANT INTRAOCULAR LENS W/O ENDOSCOPIC CYCLOPHOTOCOAGULATION (Right) OPHTHALMIC BIOMETRY BY PARTIAL COHERENCE INTERFEROMETRY W/INTRAOCULAR LENS POWER CALCULATION (Right) Procedure Details: The patient was brought to the operating room and placed in the supine position on the operating table in the usual fashion. An IV was in place, as well as EKG, and BP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 3.7-5.3 [facility] Comment on above: Performed By: #### P TDESTINEYX, MAHOGANY ####[address] [phone] Director: Dl Jean DO Sodium [Moles/Vol] 136 mmol/L Normal 135-144 [facility] Comment on above: Performed By: #### CARRIE Andrews, MAHOGANY ####[address] [phone] Director: Dl Jean DO Urea nitrogen [Mass/Vol] 19 mg/dL Normal 8-23 [facility] Comment on above: Performed By: #### P T BMPX, MAHOGANY ####[address] [phone] Director: Dl Jean DO CBC with Diffon 07-27-2023 Abs. Basophil 0.10 k/uL Normal 0.0-0.2 [facility] Comment on above: Performed By: #### P T BMPX, MAHOGANY ####[facility] [address] [place] [address] [phone] Director: Dl Jean DO Abs.Neutrophil (Seg) 7.40 k/uL Normal 1.3-9.[address] [facility] Comment on above: Performed By: #### P T, BMPX, CDP ####[facility] [address], [place] [phone] Director: Dl Jean DO Basophils/100 WBC (Bld) 1 % Normal 0-2 [facility] Comment on above: Performed By: #### P T, BMPX, CDP ####[facility] [address], [place] [phone] Director: Dl Jean DO Eosinophils (Bld) [#/Vol] 0.10 10*3/uL Normal 0.0-0.4 [facility] Comment on above: Performed By: #### P T, BMPX, CDP ####[facility] [address] [facility].[place], [place] [phone] Director: Dl Jean DO Eosinophils/100 WBC (Bld) 1 % Normal 0-4 [facility] Comment on above: Performed By: #### P T, BMPX, CDP ####[place] [address] [facility] [place] [address] Lab Director: Dl Jean DO Erythrocyte distribution width (RBC) [Ratio] 18.2 % High 11.5-14.9 [facility] Comment on above: Performed By: #### P T, BMPX, CDP ####[facility] [address] [facility] [place] [address] Lab Director: Dl Jean DO Hematocrit (Bld) [Volume fraction] 35.3 % Low 41-53 [facility] Comment on above: Performed By: #### P T, BMPX, CDP ####[facility] [address] [facility].[place], [place] [phone] Director: Dl Jean DO Hemoglobin (Bld) [Mass/Vol] 11.3 g/dL Low 13.5-17.5 [facility] Comment on above: Performed By: #### P T, BMPX, CDP ####[facility] [address] [place] [address] lab Director: Dl Jean DO Lymphocytes (Bld) [#/Vol] 0.70 10*3/uL Low 1.0-4.8 [facility] Comment on above: Performed By: #### P T, BMPX, CDP ####[address] [address] Lab Director: Dl Jean DO Lymphocytes/100 WBC (Bld) 8 % Low 24-44 [facility] Comment on above: Performed By: #### P T, BMPX, CDP ####[address] [address] Lab Director: Dl Jean DO MCH (RBC) [Entitic mass] 30.9 pg Normal 26-34 [facility] Comment on above: Performed By: #### P T, BMPX, CDP ####[address] [address] Lab Director: Dl Jean DO MCHC (RBC) [Mass/Vol] 32.1 g/dL Normal 31-37 [facility] Comment on above: Performed By: #### P T, BMPX, CDP ####[facility] [address] [place] [address] lab Director: Dl Jean DO MCV (RBC) [Entitic vol] 96.4 fL Normal 80-100 [facility] Comment on above: Performed By: #### P T, BMPX, CDP ####[facility] [address] [place] [address] Lab Director: Dl Jean DO Monocytes (Bld) [#/Vol] 0.80 10*3/uL Normal 0.1-1.3 [facility] Comment on above: Performed By: #### P T, BMPX, CDP ####[facility] [address] [place] [address] Lab Director: Dl Jean DO Monocytes/100 WBC (Bld) 9 % High 1-7 [facility] Comment on above: Performed By: #### P T, BMPX, CDP ####[facility] [address] [facility].[place], [place] [phone] Director: Dl Jean DO Neutrophil (Seg) 81 % High 36-66 [facility] Comment on above: Performed By: #### P T, BMPX, CDP ####[facility] [address] [facility].[place], [place] [phone] Director: Dl Jean DO Platelet mean volume (Bld) [Entitic vol] 7.3 fL Normal 6.0-12.0 [facility] Comment on above: Performed By: #### P T, BMPX, CDP ####[facility] Zwj[address]116 [facility], [place] [phone] Director: Dl Jean DO Platelets (Bld) [#/Vol] 331 10*3/uL Normal 150-450 [facility] Comment on above: Performed By: #### P T, BMPX, CDP ####[facility] Vch2513 [facility].[place], [place] [phone] Director: Dl Jean DO RBC (Bld) [#/Vol] 3.66 10*6/uL Low 4.5-5.9 [facility] Comment on above: Performed By: #### P T, BMPX, CDP ####[facility] [address] [facility] [place] [address] lab Director: Dl Jean DO WBC (Bld) [#/Vol] 9.0 10*3/uL Normal 3.5-11.0 [facility] Comment on above: Performed By: #### P T BMPX, CDP ####[facility] [address] [facility] [place] [address] Lab Director: Dl Jean DO Glucose,Whole Bloodon 2023 Glucose [Mass/Vol] 197 mg/dL High 75-110 [facility] Glucose [Mass/Vol] 163 mg/dL High 75-110 [facility] Glucose [Mass/Vol] 141 mg/dL High 75-110 [facility] PTon 07-27-2023 INR Coag (PPP) [Relative time] 1.8 {INR} Normal [facility] Comment on above: Result Comment: Therapeutic Range: Moderate Anticoagulant Intensity: INR = 2.0-3.0 High Anticoagulant Intensity: INR = 2.5-3.5 Performed By: #### Aneudy TCARRIE, CDP ####[facility] [address] [facility] [place] [address] lab Director: Dl Jean DO PT Coag (PPP) [Time] 21.5 s High 11.8-14.[address] [facility] Comment on above: Performed By: #### P T BMPX, CDP ####[facility] [address]ss[address] [facility] [place] [address] lab Director: Dl Jean DO Glucose,Whole Bloodon 2023 Glucose [Mass/Vol] 135 mg/dL High 75-110 [facility] Glucose [Mass/Vol] 151 mg/dL High 75-110 [facility] Glucose [Mass/Vol] 187 mg/dL High 75-110 [facility] Glucose [Mass/Vol] 148 mg/dL High 75-110 [facility] PTon 07-26-2023 INR Coag (PPP) [Relative time] 2.5 {INR} Normal [facility] Comment on above: Result Comment: Therapeutic Range: Moderate Anticoagulant Intensity: INR = 2.0-3.0 High Anticoagulant Intensity: INR = 2.5-3.5 Performed By: #### P T ####[facility] [address] [place] [address] lab Director: Dl Jean DO PT Coag (PPP) [Time] 26.8 s High 11.8-14.[address] [facility] Comment on above: Performed By: #### P T ####[facility] [address] [place] [address] lab Director: Dl Jean DO Glucose,Whole Bloodon 2023 Glucose [Mass/Vol] 197 mg/dL High 75-110 [facility] Glucose [Mass/Vol] 156 mg/dL High 75-110 [facility] Glucose [Mass/Vol] 160 mg/dL High 75-110 [facility] Glucose [Mass/Vol] 147 mg/dL High 75-110 [facility] PTon 07-25-2023 INR Coag (PPP) [Relative time] 2.1 {INR} Normal [facility] Comment on above: Result Comment: Therapeutic Range: Moderate Anticoagulant Intensity: INR = 2.0-3.0 High Anticoagulant Intensity: INR = 2.5-3.5 Performed By: #### P T ####[facility] [address] [place] [address] lab Director: Dl Jean DO PT Coag (PPP) [Time] 23.9 s High 11.8-14.[address] [facility] Comment on above: Performed By: #### P T ####[facility] [address] [place] [place] [address] lab Director: Dl Jean DO Glucose,Whole Bloodon 2023 Glucose [Mass/Vol] 146 mg/dL High 75-110 [facility] Glucose [Mass/Vol] 182 mg/dL High 75-110 [facility] Glucose [Mass/Vol] 183 mg/dL High 75-110 [facility] Glucose [Mass/Vol] 147 mg/dL High 75-110 [facility] Glucose [Mass/Vol] 151 mg/dL High 75-110 [facility] PTon 07-24-2023 INR Coag (PPP) [Relative time] 1.8 {INR} Normal [facility] Comment on above: Result Comment: Therapeutic Range: Moderate Anticoagulant Intensity: INR = 2.0-3.0 High Anticoagulant Intensity: INR = 2.5-3.5 Performed By: #### P T ####[facility] Txi[address] [facility] [place] [address] lab Director: Dl Jean DO PT Coag (PPP) [Time] 21.3 s High 11.8-14.[address] [facility] Comment on above: Performed By: #### P T ####[facility] Ipx[address]6 [facility] [place] [address] lab Director: Dl Jean DO Glucose,Whole Bloodon 2023 Glucose [Mass/Vol] 154 mg/dL High 75-110 [facility] Glucose [Mass/Vol] 202 mg/dL High 75-110 [facility] Glucose [Mass/Vol] 180 mg/dL High 75-110 [facility] Liver Profileon 07-23-2023 Albumin [Mass/Vol] 3.6 g/dL Normal 3.5-5.2 [facility] Comment on above: Performed By: #### P T, LIVP ####[facility] Ccf[address]82 [facility] [place] [address] lab Director: Dl Jean DO Alkaline Phos 178 U/L High 40-129 [facility] Comment on above: Performed By: #### P T, LIVP ####[facility] [address] [place] [address] Lab Director: Dl Jean DO ALT [Catalytic activity/Vol] 59 U/L High 5-41 [facility] Comment on above: Performed By: #### P T, LIVP ####[facility] [address] [place] [address] Lab Director: Dl Jean DO AST [Catalytic activity/Vol] 27 U/L Normal <40 [facility] Comment on above: Performed By: #### P T, LIVP ####[facility] [address] [place] [address] Lab Director: Dl Jean DO Bilirubin [Mass/Vol] 0.5 mg/dL Normal 0.3-1.[address] [facility] Comment on above: Performed By: #### P T, LIVP ####[facility] [address] [place] [place] [address] Lab Director: Dl Jean DO Bilirubin, Indirect 0.3 mg/dL Normal 0.0-1.0 [facility] Comment on above: Performed By: #### P T, LIVP ####[facility] [address] [place] [address] Lab Director: Dl Jean DO Bilirubin.indirect [Mass/Vol] 0.2 mg/dL Normal <0.3 [facility] Comment on above: Performed By: #### P T, LIVP ####[facility] [address] [place] [address] Lab Director: Dl Jean DO Protein [Mass/Vol] 6.3 g/dL Low 6.4-8.3 [facility] Comment on above: Performed By: #### P T, LIVP ####[facility] [address] [place] [address] Lab Director: Dl Jean DO PTon 07-23-2023 INR Coag (PPP) [Relative time] 1.6 {INR} Normal [facility] Comment on above: Result Comment: Therapeutic Range: Moderate Anticoagulant Intensity: INR = 2.0-3.0 High Anticoagulant Intensity: INR = 2.5-3.5 Performed By: #### P T, LIVP ####[facility] [address] [place] [address] Lab Director: Dl Jean DO PT Coag (PPP) [Time] 19.1 s High 11.8-14.[address] [facility] Comment on above: Performed By: #### P T, LIVP ####[facility] [address] [facility] [place] [address] lab Director: Dl Jean DO Glucose,Whole Bloodon 2023 Glucose [Mass/Vol] 211 mg/dL High 75-110 [facility] Glucose [Mass/Vol] 131 mg/dL High 75-110 [facility] Glucose [Mass/Vol] 227 mg/dL High 75-110 [facility] Glucose [Mass/Vol] 181 mg/dL High 75-110 [facility] PTon 07-22-2023 INR Coag (PPP) [Relative time] 1.5 {INR} Normal [facility] Comment on above: Result Comment: Therapeutic Range: Moderate Anticoagulant Intensity: INR = 2.0-3.0 High Anticoagulant Intensity: INR = 2.5-3.5 Performed By: #### P T ####[facility] [id number] [facility] [place] [address] Lab Director: Dl Jean DO PT Coag (PPP) [Time] 18.0 s High 11.8-14.[address] [facility] Comment on above: Performed By: #### P T ####[facility] [id number] [facility] [place] [address] [facility] Director: Dl Jean DO Glucose,Whole Bloodon 2023 Glucose [Mass/Vol] 148 mg/dL High 75-110 [facility] Glucose [Mass/Vol] 253 mg/dL High 75-110 [facility] Glucose [Mass/Vol] 190 mg/dL High 75-110 [facility] Glucose [Mass/Vol] 171 mg/dL High 75-110 [facility] PTon 07-21-2023 INR Coag (PPP) [Relative time] 1.5 {INR} Normal [facility] Comment on above: Result Comment: Therapeutic Range: Moderate Anticoagulant Intensity: INR = 2.0-3.0 High Anticoagulant Intensity: INR = 2.5-3.5 Performed By: #### P T ####[facility] [address] [place] [address].[place] [address] lab Director: Dl Jean DO PT Coag (PPP) [Time] 17.9 s High 11.8-14.[address] [facility] Comment on above: Performed By: #### P T ####[facility] [address] [place] [address].[place] [address] [facility] Director: Dl Jean DO XR CERVICAL SPINE [...] Antonieta Banuelos MD 07/21/23 Final result Normal [facility] Basic Metab w/rfx MGon 07-20 Anion gap [Moles/Vol] 12 mmol/L Normal 9-17 [facility] Comment on above: Performed By: #### L IVP, BMPX, PT, CDP ####[facility] [address] [place] [address] lab Director: Dl Jean DO Calcium [Mass/Vol] 8.9 mg/dL Normal 8.6-10.4 [facility] Comment on above: Performed By: #### L IVP, BMPX, PT, CDP ####[facility] [address] [place] [address] lab Director: Dl Jean DO Chloride [Moles/Vol] 102 mmol/L Normal 98-[address] [facility] Comment on above: Performed By: #### L IVP, BMPX, PT, CDP ####[facility] [address] [place] [address] lab Director: Dl Jean DO CO2 [Moles/Vol] 23 mmol/L Normal 20-31 [facility] Comment on above: Performed By: #### L IVP, BMPX, PT, CDP ####[facility] [address] [place] [address] lab Director: Dl Jean DO Creatinine [Mass/Vol] 0.9 mg/dL Normal 0.7-1.2 [facility] Comment on above: Performed By: #### L IVP, BMPX, PT, CDP ####[facility] Yky[address]75 [facility] [place] [address] lab Director: Dl Jean DO GFR/1.73 sq M.predicted among non-blacks MDRD (S/P/Bld) [Vol rate/Area] mL/min/{1.73_m2} Normal >60 [facility] Comment on above: Result Comment: These [...] By: #### L IVP, BMPX, PT, CDP ####[facility] Xkz7563 [facility] [place] [address] Lab Director: Dl Jean DO Glucose [Mass/Vol] 173 mg/dL High 70-99 [facility] Comment on above: Performed By: #### L IVP, BMPX, PT, CDP ####[facility] Kuc[address]68 [facility], [place] [address])[phone] Director: Dl Jean DO Potassium [Moles/Vol] 4.8 mmol/L Normal 3.7-5.3 [facility] Comment on above: Performed By: #### L IVP, BMPX, PT, CDP ####[facility] [address] [facility], [place] [phone] Director: Dl Jean DO Sodium [Moles/Vol] 137 mmol/L Normal 135-144 [facility] Comment on above: Performed By: #### L IVP, BMPX, PT, CDP ####[facility] V[address]140 [facility], [place] [phone] Director: Dl Jean DO Urea nitrogen [Mass/Vol] 19 mg/dL Normal 8-23 [facility] Comment on above: Performed By: #### L IVP, BMPX, PT, CDP ####[facility] Zca7893 [facility], [place] [phone] Director: Dl Jean DO CBC with Diffon 07-20-2023 Abs. Basophil 0.10 k/uL Normal 0.0-0.2 [facility] Comment on above: Performed By: #### L IVP, BMPX, PT, CDP ####[facility] [address] [place] [address] Lab Director: Dl Jean DO Abs.Neutrophil (Seg) 5.00 k/uL Normal 1.3-9.[address] [facility] Comment on above: Performed By: #### L IVP, BMPX, PT, CDP ####[facility] [address] [facility] [address] lab Director: Dl Jean DO Basophils/100 WBC (Bld) 1 % Normal 0-2 [facility] Comment on above: Performed By: #### L IVP, BMPX, PT, CDP ####[facility] S[address]20 [facility] [place] [address] lab Director: Dl Jean DO Eosinophils (Bld) [#/Vol] 0.10 10*3/uL Normal 0.0-0.4 [facility] Comment on above: Performed By: #### L IVP, BMPX, PT, CDP ####[facility] Jol7263 [facility], [place] [phone] Director: Dl Jean DO Eosinophils/100 WBC (Bld) 2 % Normal 0-4 [facility] Comment on above: Performed By: #### L IVP, BMPX, PT, CDP ####[facility] Tse[address]89 [facility] [place] [address] Lab Director: Dl Jean DO Erythrocyte distribution width (RBC) [Ratio] 16.4 % High 11.5-14.9 [facility] Comment on above: Performed By: #### L IVP, BMPX, PT, CDP ####[facility] [address] [place] [address] Lab Director: Dl Jean DO Hematocrit (Bld) [Volume fraction] 34.5 % Low 41-53 [facility] Comment on above: Performed By: #### L IVP, BMPX, PT, CDP ####[facility] [address] [place] [address] lab Director: Dl Jean DO Hemoglobin (Bld) [Mass/Vol] 11.0 g/dL Low 13.5-17.5 [facility] Comment on above: Performed By: #### L IVP, BMPX, PT, CDP ####[facility] [address] [place] [address] lab Director: Dl Jean DO Lymphocytes (Bld) [#/Vol] 1.10 10*3/uL Normal 1.0-4.8 [facility] Comment on above: Performed By: #### L IVP, BMPX, PT, CDP ####[facility] Urr8332 [facility] [place] [address] lab Director: Dl Jean DO Lymphocytes/100 WBC (Bld) 15 % Low 24-44 [facility] Comment on above: Performed By: #### L IVP, BMPX, PT, CDP ####[address] [place] [address] lab Director: Dl Jean DO MCH (RBC) [Entitic mass] 29.8 pg Normal 26-34 [facility] Comment on above: Performed By: #### L IVP, BMPX, PT, CDP ####[facility] Koc4485 [facility] [place] [address] lab Director: Dl Jean DO MCHC (RBC) [Mass/Vol] 32.0 g/dL Normal 31-37 [facility] Comment on above: Performed By: #### L IVP, BMPX, PT, CDP ####[facility] [address] [place] [address] [place] [address] Lab Director: Dl Jean DO MCV (RBC) [Entitic vol] 93.1 fL Normal 80-100 [facility] Comment on above: Performed By: #### L IVP, BMPX, PT, CDP ####[facility] [address] [facility] [place] [address] Lab Director: Dl Jean DO Monocytes (Bld) [#/Vol] 0.80 10*3/uL Normal 0.1-1.3 [facility] Comment on above: Performed By: #### L IVP, BMPX, PT, CDP ####[facility] Nya2418 [facility], [place] [phone] Director: Dl Jean DO Monocytes/100 WBC (Bld) 11 % High 1-7 [facility] Comment on above: Performed By: #### L IVP, BMPX, PT, CDP ####[facility] Efi7702 [facility], [place] [phone] Director: Dl Jean DO Neutrophil (Seg) 71 % High 36-66 [facility] Comment on above: Performed By: #### L IVP, BMPX, PT, CDP ####[facility] Gtf0790 [facility], [place] [phone] Director: Dl Jean DO Platelet mean volume (Bld) [Entitic vol] 7.4 fL Normal 6.0-12.0 [facility] Comment on above: Performed By: #### L IVP, BMPX, PT, CDP ####[facility] Hnv6891 [facility], [place] [phone] Director: Dl Jean DO Platelets (Bld) [#/Vol] 283 10*3/uL Normal 150-450 [facility] Comment on above: Performed By: #### L IVP, BMPX, PT, CDP ####[facility] [address] [place] [address] Lab Director: Dl Jean DO RBC (Bld) [#/Vol] 3.70 10*6/uL Low 4.5-5.9 [facility] Comment on above: Performed By: #### L IVP, BMPX, PT, CDP ####[facility] [address] [place] [address] lab Director: Dl Jean DO WBC (Bld) [#/Vol] 7.0 10*3/uL Normal 3.5-11.0 [facility] Comment on above: Performed By: #### L IVP, BMPX, PT, CDP ####[facility] Rjp0476 [facility] [place] [address] lab Director: Dl Jean DO Glucose,Whole Bloodon 6 Glucose [Mass/Vol] 178 mg/dL High 75-110 [facility] Glucose [Mass/Vol] 191 mg/dL High 75-110 [facility] Glucose [Mass/Vol] 256 mg/dL High 75-110 [facility] Glucose [Mass/Vol] 136 mg/dL High 75-110 [facility] Glucose [Mass/Vol] 183 mg/dL High 75-110 [facility] Liver Profileon 07-20-2023 Albumin [Mass/Vol] 3.1 g/dL Low 3.5-5.2 [facility] Comment on above: Performed By: #### L IVP, BMPX, PT, CDP ####[facility] Kex2517 [facility] [place] [address] lab Director: Dl Jean DO Alkaline Phos 126 U/L Normal 40-129 [facility] Comment on above: Performed By: #### L IVP, BMPX, PT, CDP ####[facility] [address] [place] [address] Lab Director: Dl Jean DO ALT [Catalytic activity/Vol] 73 U/L High 5-41 [facility] Comment on above: Performed By: #### L IVP, BMPX, PT, CDP ####[facility] [address] [place] [address] Lab Director: Dl Jean DO AST [Catalytic activity/Vol] 56 U/L High <40 [facility] Comment on above: Performed By: #### L IVP, BMPX, PT, CDP ####[facility] [address] [place] [address] lab Director: Dl Jean DO Bilirubin [Mass/Vol] 0.5 mg/dL Normal 0.3-1.[address] [facility] Comment on above: Performed By: #### L IVP, BMPX, PT, CDP ####[facility] [address] [facility] [place] [address] Lab Director: Dl Jean DO Bilirubin, Indirect 0.3 mg/dL Normal 0.0-1.0 [facility] Comment on above: Performed By: #### L IVP, BMPX, PT, CDP ####[facility] [address] [facility] [place] [address] Lab Director: Dl Jean DO Bilirubin.indirect [Mass/Vol] 0.2 mg/dL Normal <0.3 [facility] Comment on above: Performed By: #### L IVP, BMPX, PT, CDP ####[facility] [address] [place] [address] Lab Director: Dl Jean DO Protein [Mass/Vol] 5.8 g/dL Low 6.4-8.3 [facility] Comment on above: Performed By: #### L IVP, BMPX, PT, CDP ####[facility] Kzx9[address] [facility] [place] [address] Lab Director: Dl Jean DO PTon 07-20-2023 INR Coag (PPP) [Relative time] 1.2 {INR} Normal [facility] Comment on above: Result Comment: Therapeutic Range: Moderate Anticoagulant Intensity: INR = 2.0-3.0 High Anticoagulant Intensity: INR = 2.5-3.5 Performed By: #### L IVP, BMPX, PT, CDP ####[facility] Cad[address] [facility] [place] [address] lab Director: Dl Jean DO PT Coag (PPP) [Time] 15.9 s High 11.8-14.[address] [facility] Comment on above: Performed By: #### L IVP, BMPX, PT, CDP ####[facility] Hjh1794 [facility] [place] [address] lab Director: Dl Jean DO Glucose,Whole Bloodon 2023 Glucose [Mass/Vol] 254 mg/dL High 75-110 [facility] Glucose [Mass/Vol] 155 mg/dL High 75-110 [facility] PTon 07-19-2023 INR Coag (PPP) [Relative time] 1.3 {INR} Normal [facility] Comment on above: Result Comment: Therapeutic Range: Moderate Anticoagulant Intensity: INR = 2.0-3.0 High Anticoagulant Intensity: INR = 2.5-3.5 Performed By: #### P T ####[address] [address] lab Director: Carlos Rowland MD PT Coag (PPP) [Time] 16.1 s High 11.7-14.9 [facility] Comment on above: Performed By: #### P T ####[address] [address] Lab Director: Carlos Rowland MD Basic Metabolic Profon 07-18 Anion gap [Moles/Vol] 10 mmol/L Normal 9-17 [facility] Comment on above: Performed By: #### P T, CDP, BMP, MG, RIANNA ####[facility] [address] [place], [place] [id number])[phone] Director: Carlos Rowland MD Calcium [Mass/Vol] 8.5 mg/dL Low 8.6-10.4 [facility] Comment on above: Performed By: #### P T, CDP, BMP, MG, RIANNA ####[facility] [address] [place], [place] [address])[phone] Director: Carlos Rowland MD Chloride [Moles/Vol] 104 mmol/L Normal 98-107 [facility] Comment on above: Performed By: #### P T, CDP, BMP, MG, RIANNA ####[facility] [address] [place], [place] [address])[phone] Director: Carlos Rowland MD CO2 [Moles/Vol] 24 mmol/L Normal 20-31 [facility] Comment on above: Performed By: #### P T, CDP, BMP, MG, RIANNA ####[facility] [address] [place], [place] [id number])[phone] Director: Carlos Rowland MD Creatinine [Mass/Vol] 0.9 mg/dL Normal 0.7-1.2 [facility] Comment on above: Performed By: #### P T, CDP, BMP, MG, RIANNA ####[facility] [address] [place], [place] [address])[phone] Director: Carlos Rowland MD GFR/1.73 sq M.predicted among non-blacks MDRD (S/P/Bld) [Vol rate/Area] mL/min/{1.73_m2} Normal >60 [facility] Comment on above: Result Comment: These [...] tubular secretion. Performed By: #### P T, CDP, BMP, MG, RIANNA ####[facility] [address] [place] [address])[phone] Director: Carlos Rowland MD Glucose [Mass/Vol] 121 mg/dL High 70-99 [facility] Comment on above: Performed By: #### P T, CDP, BMP, MG, RIANNA ####[place], [place] [address])[phone] Director: Carlos Rowland MD Potassium [Moles/Vol] 4.4 mmol/L Normal 3.7-5.3 [facility] Comment on above: Performed By: #### P T, CDP, BMP, MG, RIANNA ####[address] [address])[phone] Director: Carlos Rowland MD Sodium [Moles/Vol] 138 mmol/L Normal 135-144 [facility] Comment on above: Performed By: #### P T, CDP, BMP, MG, RIANNA ####[facility] [address] [place] [address])[phone] Director: Carlos Rowland MD Urea nitrogen [Mass/Vol] 19 mg/dL Normal 8-23 [facility] Comment on above: Performed By: #### P T, CDP, BMP, MG, RIANNA ####[facility] [address] [place], [place] [address])[phone] Director: Carlos Rowland MD CBC with Diffon 07-18-2023 Abs. Basophil 0.07 k/uL Normal 0.00-0.20 [facility] Comment on above: Performed By: #### P T, CDP, BMP, MG, RIANNA ####[facility] [address] [place], [place] [address])[phone] Director: Carlos Rowland MD Abs.Imm.Granulocyte <0.03 Normal 0.00-0.30 [facility] Comment on above: Performed By: #### P T, CDP, BMP, MG, RIANNA ####[place], [place] [address])[phone] Director: Carlos Rowland MD Abs.Neutrophil (Seg) 5.21 k/uL Normal 1.50-8.10 [facility] Comment on above: Performed By: #### P T, CDP, BMP, MG, RIANNA ####[place], [place] [address])[phone] Director: Carlos Rowland MD Basophils/100 WBC (Bld) 1 % Normal 0-2 [facility] Comment on above: Performed By: #### P T, CDP, BMP, MG, RIANNA ####[place], [place] [address])[phone] Director: Carlos Rowland MD Eosinophils (Bld) [#/Vol] 0.14 10*3/uL Normal 0.00-0.44 [facility] Comment on above: Performed By: #### P T, CDP, BMP, MG, RIANNA ####[place], [place] [address])[phone] Director: Carlos Rowland MD Eosinophils/100 WBC (Bld) 2 % Normal 1-4 [facility] Comment on above: Performed By: #### P T, CDP, BMP, MG, RIANNA ####[facility] [address] [place], [place] [address])[phone] Director: Carlos Rowland MD Erythrocyte distribution width (RBC) [Ratio] 15.3 % High 11.8-14.4 [facility] Comment on above: Performed By: #### P T, CDP, BMP, MG, RIANNA ####[facility] [address] [place] [address] Lab Director: Carlos Rowland MD Hematocrit (Bld) [Volume fraction] 31.7 % Low 40.7-50.3 [facility] Comment on above: Performed By: #### P T, CDP, BMP, MG, RIANNA ####[facility] [address] [place], [place] [address])[phone] Director: Carlos Rowland MD Hemoglobin (Bld) [Mass/Vol] 10.4 g/dL Low 13.0-17.0 [facility] Comment on above: Performed By: #### P T, CDP, BMP, MG, RIANNA ####[facility] [address] [place], [place] [address])[phone] Director: Carlos Rowland MD Immature granulocytes/100 WBC (Bld) 0 % Normal 0 [facility] Comment on above: Performed By: #### P T, CDP, BMP, MG, RIANNA ####[facility] [address] [place], [place] [address])[phone] Director: Carlos Rowland MD Lymphocytes (Bld) [#/Vol] 1.29 10*3/uL Normal 1.10-3.70 [facility] Comment on above: Performed By: #### P T, CDP, BMP, MG, RIANNA ####[facility] [address] [place], [place] [address])[phone] Director: Carlos Rowland MD Lymphocytes/100 WBC (Bld) 17 % Low 24-43 [facility] Comment on above: Performed By: #### P T, CDP, BMP, MG, RIANNA ####[facility] [address]ws[address] [place], [place] [address])[phone] Director: Carlos Rowland MD MCH (RBC) [Entitic mass] 30.3 pg Normal 25.2-33.5 [facility] Comment on above: Performed By: #### P T, CDP, BMP, MG, RIANNA ####[facility] [address] [place] [address])[phone] Director: Carlos Rowland MD MCHC (RBC) [Mass/Vol] 32.8 g/dL Normal 28.4-34.8 [facility] Comment on above: Performed By: #### P T, CDP, BMP, MG, RIANNA ####[facility] [address] [place], [place] [address])[phone] Director: Carlos Rowland MD MCV (RBC) [Entitic vol] 92.4 fL Normal 82.6-102.9 [facility] Comment on above: Performed By: #### P T, CDP, BMP, MG, RIANNA ####[place], [place] [address])[phone] Director: Carlos Rowland MD Monocytes (Bld) [#/Vol] 0.81 10*3/uL Normal 0.10-1.20 [facility] Comment on above: Performed By: #### P T, CDP, BMP, MG, RIANNA ####[place], [place] [address])[phone] Director: Carlos Rowland MD Monocytes/100 WBC (Bld) 11 % Normal 3-12 [facility] Comment on above: Performed By: #### P T, CDP, BMP, MG, RIANNA ####[facility] [address] [place], [place] [address])[phone] Director: Carlos Rowland MD Neutrophil (Seg) 69 % High 36-65 [facility] Comment on above: Performed By: #### P T, CDP, BMP, MG, RIANNA ####[facility] [address] [place], [place] [id number])[phone] Director: Carlos Rowland MD NRBC Automated 0.0 per 100 WBC Normal 0.0 [facility] Comment on above: Performed By: #### P T, CDP, BMP, MG, RIANNA ####[facility] [address] [place] [address] [id number])[phone] Director: Carlos Rowland MD Platelet mean volume (Bld) [Entitic vol] 9.8 fL Normal 8.1-13.5 [facility] Comment on above: Performed By: #### P T, CDP, BMP, MG, RIANNA ####[facility] [address] [place] [address] 47613419)[phone] Director: Carlos Rowland MD Platelets (Bld) [#/Vol] 238 10*3/uL Normal 138-453 [facility] Comment on above: Performed By: #### P T, CDP, BMP, MG, RIANNA ####[address] [address])[phone] Director: Carlos Rowland MD RBC (Bld) [#/Vol] 3.43 10*6/uL Low 4.21-5.77 [facility] Comment on above: Performed By: #### P T, CDP, BMP, MG, RIANNA ####[address] [id number])[phone] Director: Carlos Rowland MD RBC morphology finding Nom (Bld) ANISOCYTOSIS PRESENT Normal [facility] Comment on above: Performed By: #### P T, CDP, BMP, MG, RIANNA ####[facility] [address] [place] [address] [id number])[phone] Director: Carlos Rowland MD WBC (Bld) [#/Vol] 7.5 10*3/uL Normal 3.5-11.3 [facility] Comment on above: Performed By: #### P T, CDP, BMP, MG, RIANNA ####[facility] [address] [place], [place] [id number])[phone] Director: Carlos Rowland MD Cult,Bloodon 07-18-2023 Cult,Blood Specimen Description .BLOOD Special Requests RT HAND 1 ML Culture NO GROWTH 5 DAYS Report Status FINAL 07/18/2023 Normal [facility] Comment on above: Performed By: #### B C ####[address] [place], [place] 7660[address] lab Director: Carlos Rowland MD Cult,Blood Specimen Description .BLOOD Special Requests LEFT HAND 1 ML Culture NO GROWTH 5 DAYS Report Status FINAL 07/18/2023 Normal [facility] Comment on above: Performed By: #### B C ####[address] [address] lab Director: Carlos Rowland MD Glucose,Whole Bloodon 2023 Glucose [Mass/Vol] 255 mg/dL High 75-110 [facility] Glucose [Mass/Vol] 311 mg/dL High [facility]110 [facility] Glucose [Mass/Vol] 142 mg/dL High -110 [facility] Glucose [Mass/Vol] 312 mg/dL High -110 [facility] Glucose [Mass/Vol] 178 mg/dL High -110 [facility] Glucose [Mass/Vol] 167 mg/dL High [facility]110 [facility] Magnesiumon 07-18-2023 Magnesium [Mass/Vol] 1.9 mg/dL Normal 1.6-2.6 [facility] Comment on above: Performed By: #### P T, CDP, BMP, MG, RIANNA ####[facility]ronPaybubbleFiozfngyoiki[address]201 [place], [place] [id number] lab Director: Cralos Rowland MD PTon 07-18-2023 INR Coag (PPP) [Relative time] 1.3 {INR} Normal [facility] Comment on above: Result Comment: Therapeutic Range: Moderate Anticoagulant Intensity: INR = 2.0-3.0 High Anticoagulant Intensity: INR = 2.5-3.5 Performed By: #### P T, CDP, BMP, MG, RIANNA ####[address] [address] Lab Director: Carlos Rowland MD PT Coag (PPP) [Time] 15.8 s High 11.7-14.9 [facility] Comment on above: Performed By: #### P T, CDP, BMP, MG, RIANNA ####[address] [address] Lab Director: Carlos Rowland MD Phosphorus, Inorg.on 024 Phosphorus, Inorg. 3.6 mg/dL Normal 2.5-4.5 [facility] Comment on above: Performed By: #### P T, CDP, BMP, MG, RIANNA ####[place], [place] [address])[phone] Director: Carlos Rowland MD Basic Metabolic Profon 07-17 Anion gap [Moles/Vol] 8 mmol/L Low 9-17 [facility] Comment on above: Performed By: #### C DP, BMP, MG, RIANNA, PT ####[place], [place] [address])[phone] Director: Carlos Rowland MD Calcium [Mass/Vol] 8.6 mg/dL Normal 8.6-10.4 [facility] Comment on above: Performed By: #### C DP, BMP, MG, RIANNA, PT ####[address] [address])[phone] Director: Carlos Rowland MD Chloride [Moles/Vol] 102 mmol/L Normal 98-107 [facility] Comment on above: Performed By: #### C DP, BMP, MG, RIANNA, PT ####[address] [address])[phone] Director: Carlos Rowland MD CO2 [Moles/Vol] 23 mmol/L Normal 20-31 [facility] Comment on above: Performed By: #### C DP, BMP, MG, RIANNA, PT ####[facility] [address] [place] [address] Lab Director: Carlos Rowland MD Creatinine [Mass/Vol] 0.9 mg/dL Normal 0.7-1.2 [facility] Comment on above: Performed By: #### C DP, BMP, MG, RIANNA, PT ####[address] [address] Lab Director: Carlos Rowland MD GFR/1.73 sq M.predicted among non-blacks MDRD (S/P/Bld) [Vol rate/Area] mL/min/{1.73_m2} Normal >60 [facility] Comment on above: Result Comment: These [...] affects renal tubular secretion. Performed By: #### C DP, BMP, MG, RIANNA, PT ####[facility] [address] [place] [address])[phone] Director: Carlos Rowland MD Glucose [Mass/Vol] 169 mg/dL High 70-99 [facility] Comment on above: Performed By: #### C DP, BMP, MG, RIANNA, PT ####[facility] [address] [place] [address] Lab Director: Carlos Rowland MD Potassium [Moles/Vol] 4.8 mmol/L Normal 3.7-5.3 [facility] Comment on above: Performed By: #### C DP, BMP, MG, RIANNA, PT ####[facility] [address] [place] [address] Lab Director: Carlos Rowland MD Sodium [Moles/Vol] 133 mmol/L Low 135-144 [facility] Comment on above: Performed By: #### C DP, BMP, MG, RIANNA, PT ####[facility] [address] [place], [place] [address])[phone] Director: Carlos Rowland MD Urea nitrogen [Mass/Vol] 22 mg/dL Normal 8-23 [facility] Comment on above: Performed By: #### C DP, BMP, MG, RIANNA, PT ####[facility] [address] [place], [place] [address])[phone] Director: Carlos Rowland MD CBC with Diffon 07-17-2023 Abs. Basophil 0.09 k/uL Normal 0.00-0.20 [facility] Comment on above: Performed By: #### C DP, BMP, MG, RIANNA, PT ####[facility] [address] [place], [place] [address])[phone] Director: Carlos Rowland MD Abs.Imm.Granulocyte 0.04 k/uL Normal 0.00-0.30 [facility] Comment on above: Performed By: #### C DP, BMP, MG, RIANNA, PT ####[facility] [address] [place], [place] [address])[phone] Director: Carlos Rowland MD Abs.Neutrophil (Seg) 5.58 k/uL Normal 1.50-8.10 [facility] Comment on above: Performed By: #### C DP, BMP, MG, RIANNA, PT ####[facility] [address] [place], [place] [address])[phone] Director: Carlos Rowland MD Basophils/100 WBC (Bld) 1 % Normal 0-2 [facility] Comment on above: Performed By: #### C DP, BMP, MG, RIANNA, PT ####[facility] [address]wix4[address] [place], [place] [address])[phone] Director: Carlos Rowland MD Eosinophils (Bld) [#/Vol] 0.16 10*3/uL Normal 0.00-0.44 [facility] Comment on above: Performed By: #### C DP, BMP, MG, RIANNA, PT ####[address] [address])[phone] Director: Calros Rowland MD Eosinophils/100 WBC (Bld) 2 % Normal 1-4 [facility] Comment on above: Performed By: #### C DP, BMP, MG, RIANNA, PT ####[facility] [address] [place], [place] [address])[phone] Director: Carlos Rowland MD Erythrocyte distribution width (RBC) [Ratio] 15.3 % High 11.8-14.4 [facility] Comment on above: Performed By: #### C DP, BMP, MG, RIANNA, PT ####[place], [place] [address])[phone] Director: Carlos Rowland MD Hematocrit (Bld) [Volume fraction] 35.8 % Low 40.7-50.3 [facility] Comment on above: Performed By: #### C DP, BMP, MG, RIANNA, PT ####[facility] [address] [place], [place] [address])[phone] Director: Carlos Rowland MD Hemoglobin (Bld) [Mass/Vol] 11.2 g/dL Low 13.0-17.0 [facility] Comment on above: Performed By: #### C DP, BMP, MG, RIANNA, PT ####[facility] [address] [place], [place] [address])[phone] Director: Carlos Rowland MD Immature granulocytes/100 WBC (Bld) 1 % High 0 [facility] Comment on above: Performed By: #### C DP, BMP, MG, RIANNA, PT ####[facility] [address] [place] [address])[phone] Director: Carlos Rowland MD Lymphocytes (Bld) [#/Vol] 1.11 10*3/uL Normal 1.10-3.70 [facility] Comment on above: Performed By: #### C DP, BMP, MG, RIANNA, PT ####[facility] [address] [place], [place] [address])[phone] Director: Carlos Rowland MD Lymphocytes/100 WBC (Bld) 14 % Low 24-43 [facility] Comment on above: Performed By: #### C DP, BMP, MG, RIANNA, PT ####[facility] [address] [place], [place] [address])[phone] Director: Carlos Rowland MD MCH (RBC) [Entitic mass] 29.4 pg Normal 25.2-33.5 [facility] Comment on above: Performed By: #### C DP, BMP, MG, RIANNA, PT ####[facility] [address] [place], [place] [address])[phone] Director: Carlos Rowland MD MCHC (RBC) [Mass/Vol] 31.3 g/dL Normal 28.4-34.8 [facility] Comment on above: Performed By: #### C DP, BMP, MG, RIANNA, PT ####[facility] [address] [place], [place] [address])[phone] Director: Carlos Rowland MD MCV (RBC) [Entitic vol] 94.0 fL Normal 82.6-102.9 [facility] Comment on above: Performed By: #### C DP, BMP, MG, RIANNA, PT ####[facility] [address] [place], [place] [address])[phone] Director: Carlos Rowland MD Monocytes (Bld) [#/Vol] 0.74 10*3/uL Normal 0.10-1.20 [facility] Comment on above: Performed By: #### C DP, BMP, MG, RIANNA, PT ####[facility] [address] [place], [place] [id number])[phone] Director: Carlos Rowland MD Monocytes/100 WBC (Bld) 10 % Normal 3-12 [facility] Comment on above: Performed By: #### C DP, BMP, MG, RIANNA, PT ####[facility] I[address]hkz[address]4 [place], [place] [id number])[phone] Director: Carlos Rowland MD Neutrophil (Seg) 72 % High 36-65 [facility] Comment on above: Performed By: #### C DP, BMP, MG, RIANNA, PT ####[facility] [address] [place], [place] [id number])[phone] Director: Carlos Rowland MD NRBC Automated 0.0 per 100 WBC Normal 0.0 [facility] Comment on above: Performed By: #### C DP, BMP, MG, RIANNA, PT ####[facility] [address] [place], [place] [id number])[phone] Director: Carlos Rowland MD Platelet mean volume (Bld) [Entitic vol] 9.7 fL Normal 8.1-13.5 [facility] Comment on above: Performed By: #### C DP, BMP, MG, RIANNA, PT ####[facility] [address]mxb[address] [place], [place] [id number])[phone] Director: Carlos Rowland MD Platelets (Bld) [#/Vol] 235 10*3/uL Normal 138-453 [facility] Comment on above: Performed By: #### C DP, BMP, MG, RIANNA, PT ####[facility] [address]sb[address] [place], [place] [id number])[phone] Director: Carlos Rowland MD RBC (Bld) [#/Vol] 3.81 10*6/uL Low 4.21-5.77 [facility] Comment on above: Performed By: #### C DP, BMP, MG, RIANNA, PT ####[facility] [address] [place] [address] Lab Director: Carlos Rowland MD RBC morphology finding Nom (Bld) ANISOCYTOSIS PRESENT Normal [facility] Comment on above: Performed By: #### C DP, BMP, MG, RIANNA, PT ####[address] [address] lab Director: Carlos Rowland MD WBC (Bld) [#/Vol] 7.7 10*3/uL Normal 3.5-11.3 [facility] Comment on above: Performed By: #### C DP, BMP, MG, RIANNA, PT ####[address] [address] lab Director: Carlos Rowland MD Glucose,Whole Bloodon 2023 Glucose [Mass/Vol] 251 mg/dL High 75-110 [facility] Glucose [Mass/Vol] 185 mg/dL High 75-110 [facility] Glucose [Mass/Vol] 293 mg/dL High 75-110 [facility] Magnesiumon 07-17-2023 Magnesium [Mass/Vol] 1.9 mg/dL Normal 1.6-2.6 [facility] Comment on above: Performed By: #### C DP, BMP, MG, RIANNA, PT ####[address] [address] Lab Director: Carlos Rowland MD PTon 07-17-2023 INR Coag (PPP) [Relative time] 1.2 {INR} Normal [facility] Comment on above: Result Comment: Therapeutic Range: Moderate Anticoagulant Intensity: INR = 2.0-3.0 High Anticoagulant Intensity: INR = 2.5-3.5 Performed By: #### C DP, BMP, MG, RIANNA, PT ####[address] [address] lab Director: Carlos Rowland MD PT Coag (PPP) [Time] 14.9 s Normal 11.7-14.9 [facility] Comment on above: Performed By: #### C DP, BMP, MG, RIANNA, PT ####[facility] [address] [place], [place] [id number])[phone] Director: Carlos Rowland MD Phosphorus, Inorg.on 024 Phosphorus, Inorg. 3.1 mg/dL Normal 2.5-4.5 [facility] Comment on above: Performed By: #### C DP, BMP, MG, RIANNA, PT ####[facility] Iwhwmkphqude[address] [place], [place] [id number])[phone] Director: Carlos Rowland MD Basic Metabolic Profon 07-16 Anion gap [Moles/Vol] 11 mmol/L Normal 9-17 [facility] Comment on above: Performed By: #### LUZ MARIA MERCHANT #### [facility] [employer] [address] [place] [address] [employer] Clerk: Carlos Rowland MD Calcium [Mass/Vol] 8.3 mg/dL Low 8.6-10.4 [facility] Comment on above: Performed By: #### U AXJAMMIEO #### [facility] [employer] [address] [place] [address] [employer] Clerk: Carlos Rowland MD Chloride [Moles/Vol] 103 mmol/L Normal 98-107 [facility] Comment on above: Performed By: #### U AX UMICAO #### [facility] [employer] [address] [place] [address] [employer] Clerk: Carlos Rowland MD CO2 [Moles/Vol] 22 mmol/L Normal 20-31 [facility] Comment on above: Performed By: #### U AX UMICAO #### [facility] [employer] [address] [place] [address] [employer] Collection Clerk: Carlos Rowland MD Creatinine [Mass/Vol] 1.0 mg/dL Normal 0.7-1.2 [facility] Comment on above: Performed By: #### U AX UMICAO #### [employer] [address] [place] [address] C[employer] Collection Clerk: Carlos Rowland MD GFR/1.73 sq M.predicted among non-blacks MDRD (S/P/Bld) [Vol rate/Area] mL/min/{1.73_m2} Normal >60 [facility] Comment on above: Result Comment: These [...] renal tubular secretion. Performed By: #### U AXJUSTINAICAO #### [facility] [address] [place] [address] [employer] Collection Clerk: Carlos Rowland MD Glucose [Mass/Vol] 160 mg/dL High 70-99 [facility] Comment on above: Performed By: #### U AX UMICAO #### [facility] [address] [place] [address] C[employer] Collection Clerk: Carlos Rowland MD Potassium [Moles/Vol] 4.3 mmol/L Normal 3.7-5.3 [facility] Comment on above: Performed By: #### U AX, UMICAO #### [facility] [address] [place] [address] Coup[employer] Collection Clerk: Carlos Rowland MD Sodium [Moles/Vol] 136 mmol/L Normal 135-144 [facility] Comment on above: Performed By: #### U AX, UMICAO #### [employer] [address] [place] [address] Coupon Collection Clerk: Carlos Rowland MD Urea nitrogen [Mass/Vol] 23 mg/dL Normal 8-23 [facility] Comment on above: Performed By: #### U AXJUSTINAICAO #### [facility] [employer] [address] [place] [address] Coupon Collection Clerk: Carlos Rowland MD CBC with Diffon 07-16-2023 Abs. Basophil 0.07 k/uL Normal 0.00-0.20 [facility] Comment on above: Performed By: #### U AXJUSTINAICAO #### [facility] [employer] [address] [place] [address] Coup[employer] Collection Clerk: Carlos Rowland MD Abs.Imm.Granulocyte 0.04 k/uL Normal 0.00-0.30 [facility] Comment on above: Performed By: #### U AXJUSTINAICAO #### [place] [address] [employer] Clerk: Carlos Rowland MD Abs.Neutrophil (Seg) 7.16 k/uL Normal 1.50-8.10 [facility] Comment on above: Performed By: #### U AXJUSTINAICAO #### [address] [address] C[employer] Collection Clerk: Carlos Rowland MD Basophils/100 WBC (Bld) 1 % Normal 0-2 [facility] Comment on above: Performed By: #### U AXJUSTINAICAO #### [address] [address] [employer] Collection Clerk: Carlos Rowland MD Eosinophils (Bld) [#/Vol] 0.19 10*3/uL Normal 0.00-0.44 [facility] Comment on above: Performed By: #### U AX UMICAO #### [facility] [employer] [address] [place] [address] Coupon Collection Clerk: Carlos Rowland MD Eosinophils/100 WBC (Bld) 2 % Normal 1-4 [facility] Comment on above: Performed By: #### U AX UMICAO #### [facility] [address] [place] [address] Coupon Collection Clerk: Carlos Rowland MD Erythrocyte distribution width (RBC) [Ratio] 15.2 % High 11.8-14.4 [facility] Comment on above: Performed By: #### U AXJUSTINAICAO #### [facility] [employer] [address] [place] [address] Coupon Collection Clerk: Carlos Rowland MD Hematocrit (Bld) [Volume fraction] 35.9 % Low 40.7-50.3 [facility] Comment on above: Performed By: #### U AXJUSTINAICAO #### [facility] [employer] [address] [place] [address] Coupon Collection Clerk: Carlos Rowland MD Hemoglobin (Bld) [Mass/Vol] 11.2 g/dL Low 13.0-17.0 [facility] Comment on above: Performed By: #### U AX UMICAO #### [facility] [employer] [address] [place] [address] Coupon Collection Clerk: Carlos Rowland MD Immature granulocytes/100 WBC (Bld) 0 % Normal 0 [facility] Comment on above: Performed By: #### U AXJUSTINAICAO #### [facility] [employer] [address] [place] [address] Coupon Collection Clerk: Carlos Rowland MD Lymphocytes (Bld) [#/Vol] 1.36 10*3/uL Normal 1.10-3.70 [facility] Comment on above: Performed By: #### U AX UMICAO #### [facility] [address] [place] [address] Coupon Collection Clerk: Carlos Rowland MD Lymphocytes/100 WBC (Bld) 14 % Low 24-43 [facility] Comment on above: Performed By: #### U AX UMICAO #### [facility] [address] [place] [address] Coupon Collection Clerk: Carlos Rowland MD MCH (RBC) [Entitic mass] 29.9 pg Normal 25.2-33.5 [facility] Comment on above: Performed By: #### U AX, UMICAO #### [facility] [address] [place] [address] Coupon Collection Clerk: Carlos Rowland MD MCHC (RBC) [Mass/Vol] 31.2 g/dL Normal 28.4-34.8 [facility] Comment on above: Performed By: #### U AX, UMICAO #### [address] [address] C[employer] Collection Clerk: Carlos Rowland MD MCV (RBC) [Entitic vol] 96.0 fL Normal 82.6-102.9 [facility] Comment on above: Performed By: #### U AX, UMICAO #### [address] [address] C[employer] Collection Clerk: Carlos Rowland MD Monocytes (Bld) [#/Vol] 0.92 10*3/uL Normal 0.10-1.20 [facility] Comment on above: Performed By: #### U AX, UMICAO #### [address] [address] Coup[employer] Collection Clerk: Carlos Rowland MD Monocytes/100 WBC (Bld) 9 % Normal 3-12 [facility] Comment on above: Performed By: #### U AX, UMICAO #### [facility] [address] [place] [address] Coupon Collection Clerk: Carlos Rowland MD Neutrophil (Seg) 74 % High 36-65 [facility] Comment on above: Performed By: #### U AX, UMICAO #### [facility] [employer] [address] [place] [address] Coupon Collection Clerk: Carlos Rowland MD NRBC Automated 0.0 per 100 WBC Normal 0.0 [facility] Comment on above: Performed By: #### U AX, UMICAO #### [facility] [address] [place] [address] Coupon Collection Clerk: Carlos Rowland MD Platelet mean volume (Bld) [Entitic vol] 9.9 fL Normal 8.1-13.5 [facility] Comment on above: Performed By: #### U AX, UMICAO #### [facility] [address] [place] [address] Coupon Collection Clerk: Carlos Rowland MD Platelets (Bld) [#/Vol] 223 10*3/uL Normal 138-453 [facility] Comment on above: Performed By: #### U AX, UMICAO #### [address] [address] C[employer] Collection Clerk: Carlos Rowland MD RBC (Bld) [#/Vol] 3.74 10*6/uL Low 4.21-5.77 [facility] Comment on above: Performed By: #### U AX, UMICAO #### [address] [address] C[employer] Collection Clerk: Carlos Rowland MD RBC morphology finding Nom (Bld) ANISOCYTOSIS PRESENT Normal [facility] Comment on above: Performed By: #### U AX, UMICAO #### [facility] [address] [place] [address] Coupon Collection Clerk: Carlos Rowland MD WBC (Bld) [#/Vol] 9.7 10*3/uL Normal 3.5-11.3 [facility] Comment on above: Performed By: #### U AX, UMICAO #### [address] [address] Coupon Collection Clerk: Carlos Rowland MD Glucose,Whole Bloodon 2023 Glucose [Mass/Vol] 220 mg/dL High 75-110 [facility] Glucose [Mass/Vol] 156 mg/dL High 75-110 [facility] Glucose [Mass/Vol] 267 mg/dL High 75-110 [facility] Glucose [Mass/Vol] 167 mg/dL High 75-110 [facility] Magnesiumon 07-16-2023 Magnesium [Mass/Vol] 2.0 mg/dL Normal 1.6-2.6 [facility] Comment on above: Performed By: #### U AXLUZ MARIA #### [facility] [address] [place] [address] [phone] Coupon Collection Clerk: Carlos Rowland MD PTon 07-16-2023 INR Coag (PPP) [Relative time] 1.3 {INR} Normal [facility] Comment on above: Result Comment: Therapeutic Range: Moderate Anticoagulant Intensity: INR = 2.0-3.0 High Anticoagulant Intensity: INR = 2.5-3.5 Performed By: #### U AXLUZ MARIA #### [facility] [address] [place] [address] [phone] Coupon Collection Clerk: Carlos Rowland MD PT Coag (PPP) [Time] 15.9 s High 11.7-14.9 [facility] Comment on above: Performed By: #### U AX UMICAO #### [employer] [facility] [address] [place] [address] [phone] Coupon Collection Clerk: Carlos Rowland MD Phosphorus, Inorg.on 024 Phosphorus, Inorg. 3.3 mg/dL Normal 2.5-4.5 [facility] Comment on above: Performed By: #### U AX, UMICAO #### [employer] [address] [place] [address] [phone] Coupon Collection Clerk: Carlos Rowland MD Basic Metabolic Profon 07-15 Anion gap [Moles/Vol] 12 mmol/L Normal 9-17 [facility] Comment on above: Performed By: #### M G, CDP, BMP, RIANNA ####[facility] [address] [place], [place] [phone] Director: Carlos Rowland MD Calcium [Mass/Vol] 8.5 mg/dL Low 8.6-10.4 [facility] Comment on above: Performed By: #### M G, CDP, BMP, RIANNA ####[facility] [address] [place], [place] [id number])[phone] Director: Carlos Rowland MD Chloride [Moles/Vol] 102 mmol/L Normal 98-107 [facility] Comment on above: Performed By: #### M G, CDP, BMP, RIANNA ####[facility] [address] [place], [place] [address])[phone] Director: Carlos Rowland MD CO2 [Moles/Vol] 19 mmol/L Low 20-31 [facility] Comment on above: Performed By: #### M G, CDP, BMP, RIANNA ####[facility] [address] [place], [place] [phone] Director: Carlos Rowland MD Creatinine [Mass/Vol] 1.1 mg/dL Normal 0.7-1.2 [facility] Comment on above: Performed By: #### M G, CDP, BMP, RIANNA ####[facility] [address] [place], [place] [address])[phone] Director: Carlos Rowland MD GFR/1.73 sq M.predicted among non-blacks MDRD (S/P/Bld) [Vol rate/Area] mL/min/{1.73_m2} Normal >60 [facility] Comment on above: Result Comment: These [...] affects renal tubular secretion. Performed By: #### MAHOGANY Almazan BMP, RIANNA ####[facility] [address] [place], [place] [address])[phone] Director: Carlos Rowland MD Glucose [Mass/Vol] 154 mg/dL High 70-99 [facility] Comment on above: Performed By: #### M April, MAHOGANY, BMP, RIANNA ####[facility] [address] [place], [place] [address])[phone] Director: Carlos Rowland MD Potassium [Moles/Vol] 4.3 mmol/L Normal 3.7-5.3 [facility] Comment on above: Performed By: #### MAHOGANY Almazan BMP, RIANNA ####[address] [address])[phone] Director: Carlos Rowland MD Sodium [Moles/Vol] 133 mmol/L Low 135-144 [facility] Comment on above: Performed By: #### MAHOGANY Almazan, BMP, RIANNA ####[facility] [address] [place], [place] [address])[phone] Director: Carlos Rowland MD Urea nitrogen [Mass/Vol] 27 mg/dL High 8-23 [facility] Comment on above: Performed By: #### M MAHOGANY Chen, BMP, RIANNA ####[facility] [address]mc[address] [place], [place] [address])[phone] Director: Carlos Rowland MD CBC with Diffon 07-15-2023 Abs. Basophil 0.06 k/uL Normal 0.00-0.20 [facility] Comment on above: Performed By: #### M MAHOGANY Chen, BMP, RIANNA ####[facility] [address] [place], [place] [address])[phone] Director: Carlos Rowland MD Abs.Imm.Granulocyte 0.04 k/uL Normal 0.00-0.30 [facility] Comment on above: Performed By: #### M April, MAHOGANY, BMP, RIANNA ####[facility] [address] [place], [place] [address])[phone] Director: Carlos Rowland MD Abs.Neutrophil (Seg) 6.54 k/uL Normal 1.50-8.10 [facility] Comment on above: Performed By: #### M April, CDP, BMP, RIANNA ####[facility] [address] [place], [place] [address])[phone] Director: Carlos Rowland MD Basophils/100 WBC (Bld) 1 % Normal 0-2 [facility] Comment on above: Performed By: #### [place] Chen, MAHOGANY, BMP, RIANNA ####[facility] [address] [place], [place] [address])[phone] Director: Carlos Rowland MD Eosinophils (Bld) [#/Vol] 0.26 10*3/uL Normal 0.00-0.44 [facility] Comment on above: Performed By: #### M April, MAHOGANY, BMP, RIANNA ####[facility] [address] [place], [place] [address])[phone] Director: Carlos Rowland MD Eosinophils/100 WBC (Bld) 3 % Normal 1-4 [facility] Comment on above: Performed By: #### M April, MAHOGANY, BMP, RIANNA ####[facility] [address]uh[address]75[address] [place], [place] [address])[phone] Director: Carlos Rowland MD Erythrocyte distribution width (RBC) [Ratio] 15.2 % High 11.8-14.4 [facility] Comment on above: Performed By: #### M April, CDP, BMP, RIANNA ####[facility] [address]vh[address] [place], [place] [address])[phone] Director: Carlos Rowland MD Hematocrit (Bld) [Volume fraction] 39.1 % Low 40.7-50.3 [facility] Comment on above: Performed By: #### M April, CDP, BMP, RIANNA ####[facility] [address] [place] [address] Lab Director: Carlos Rowland MD Hemoglobin (Bld) [Mass/Vol] 11.9 g/dL Low 13.0-17.0 [facility] Comment on above: Performed By: #### M April, CDP, BMP, RIANNA ####[facility] [address] [place], [place] [phone] Director: Carlos Rowland MD Immature granulocytes/100 WBC (Bld) 0 % Normal 0 [facility] Comment on above: Performed By: #### [place] Chen, CDP, BMP, RIANNA ####[facility] [address] [place], [place] [address])[phone] Director: Carlos Rowland MD Lymphocytes (Bld) [#/Vol] 1.23 10*3/uL Normal 1.10-3.70 [facility] Comment on above: Performed By: #### M April, MAHOGANY, BMP, RIANNA ####[facility] [address] [place], [place] [id number])[phone] Director: Carlos Rowland MD Lymphocytes/100 WBC (Bld) 14 % Low 24-43 [facility] Comment on above: Performed By: #### M April, CDP, BMP, RIANNA ####[facility] [address]kb[address] [place], [place] [id number])[phone] Director: Carlos Rowland MD MCH (RBC) [Entitic mass] 29.5 pg Normal 25.2-33.5 [facility] Comment on above: Performed By: #### M G, CDP, BMP, RIANNA ####[facility] [address] [place], [place] [id number])[phone] Director: Carlos Rowland MD MCHC (RBC) [Mass/Vol] 30.4 g/dL Normal 28.4-34.8 [facility] Comment on above: Performed By: #### M April, CDP, BMP, RIANNA ####[address] [id number])[phone] Director: Carlos Rowland MD MCV (RBC) [Entitic vol] 97.0 fL Normal 82.6-102.9 [facility] Comment on above: Performed By: #### M April, CDP, BMP, RIANNA ####[facility] [address] [place], [place] [id number])[phone] Director: Carlos Rowland MD Monocytes (Bld) [#/Vol] 0.85 10*3/uL Normal 0.10-1.20 [facility] Comment on above: Performed By: #### Kingston Chen, CDP, BMP, RIANNA ####[place], [place] [address])[phone] Director: Carlos Rowland MD Monocytes/100 WBC (Bld) 10 % Normal 3-12 [facility] Comment on above: Performed By: #### M April, MAHOGANY, BMP, RIANNA ####[address] [address])[phone] Director: Carlos Rowland MD Neutrophil (Seg) 72 % High 36-65 [facility] Comment on above: Performed By: #### M G, CDP, BMP, RIANNA ####[address] [id number])[phone] Director: Carlos Rowland MD NRBC Automated 0.0 per 100 WBC Normal 0.0 [facility] Comment on above: Performed By: #### M G, CDP, BMP, RIANNA ####[facility] [address] [place], [place] [id number])[phone] Director: Carlos Rowland MD Platelet mean volume (Bld) [Entitic vol] 9.9 fL Normal 8.1-13.5 [facility] Comment on above: Performed By: #### M G, CDP, BMP, RIANNA ####[facility] [address]xjxzxcks[address] [place], [place] [phone])[phone] Director: Carlos Rowalnd MD Platelets (Bld) [#/Vol] 206 10*3/uL Normal 138-453 [facility] Comment on above: Performed By: #### M G, CDP, BMP, RIANNA ####[facility] Yfxfhvxhzlbn7236 [place] [address] Lab Director: Carlos Rowland MD RBC (Bld) [#/Vol] 4.03 10*6/uL Low 4.21-5.77 [facility] Comment on above: Performed By: #### M G, CDP, BMP, RIANNA ####[facility] Hqdh[address]klpdpim44[address] [place], [place] 02092419)[phone] Director: Carlos Rowland MD RBC morphology finding Nom (Bld) ANISOCYTOSIS PRESENT Normal [facility] Comment on above: Performed By: #### M G, CDP, BMP, RIANNA ####[facility] [address] [place] [address] Lab Director: Carlos Rowland MD WBC (Bld) [#/Vol] 9.0 10*3/uL Normal 3.5-11.3 [facility] Comment on above: Performed By: #### M G, CDP, BMP, RIANNA ####[facility] [address]cq[address]zneff[address] [place], [place] [id number])[phone] Director: Carlos Rowland MD Glucose,Whole Bloodon 2023 Glucose [Mass/Vol] 175 mg/dL High 75-110 [facility] Glucose [Mass/Vol] 169 mg/dL High 75-110 [facility] Glucose [Mass/Vol] 273 mg/dL High 75-110 [facility] Glucose [Mass/Vol] 157 mg/dL High 75-110 [facility] Magnesiumon 07-15-2023 Magnesium [Mass/Vol] 2.2 mg/dL Normal 1.6-2.6 [facility] Comment on above: Performed By: #### M G, CDP, BMP, RIANNA ####[facility] [address] [place] [address] Lab Director: Carlos Rowland MD PTon 07-15-2023 INR Coag (PPP) [Relative time] 1.4 {INR} Normal [facility] Comment on above: Result Comment: Therapeutic Range: Moderate Anticoagulant Intensity: INR = 2.0-3.0 High Anticoagulant Intensity: INR = 2.5-3.5 Performed By: #### P T ####[address] [address] Lab Director: Carlos Rowland MD PT Coag (PPP) [Time] 16.5 s High 11.7-14.9 [facility] Comment on above: Performed By: #### P T ####[address] [address] Lab Director: Carlos Rowland MD Phosphorus, Inorg.on 024 Phosphorus, Inorg. 3.8 mg/dL Normal 2.5-4.5 [facility] Comment on above: Performed By: #### M G, CDP, BMP, RIANNA ####[address] [address] Lab Director: Carlos Rowland MD Basic Metabolic Profon 07-14 Anion gap [Moles/Vol] 10 mmol/L Normal 9-17 [facility] Comment on above: Performed By: #### B MP, CDP, MG, RIANNA ####[facility] [address] [place] [address] Lab Director: Carlos Rowland MD Calcium [Mass/Vol] 8.5 mg/dL Low 8.6-10.4 [facility] Comment on above: Performed By: #### B MP, CDP, MG, RIANNA ####[facility] [address] [place], [place] [id number])[phone] Director: Carlos Rowland MD Chloride [Moles/Vol] 103 mmol/L Normal 98-107 [facility] Comment on above: Performed By: #### B MP, CDP, MG, RIANNA ####[facility] [address] [place], [place] [id number])[phone] Director: Carlos Rowland MD CO2 [Moles/Vol] 23 mmol/L Normal 20-31 [facility] Comment on above: Performed By: #### B MP, CDP, MG, RIANNA ####[facility] [address] [place], [place] [address])[phone] Director: Carlos Rowland MD Creatinine [Mass/Vol] 1.0 mg/dL Normal 0.7-1.2 [facility] Comment on above: Performed By: #### B MP, CDP, MG, RIANNA ####[facility] [address] [place] [address])[phone] Director: Carlos Rowland MD GFR/1.73 sq M.predicted among non-blacks MDRD (S/P/Bld) [Vol rate/Area] mL/min/{1.73_m2} Normal >60 [facility] Comment on above: Result Comment: These [...] affects renal tubular secretion. Performed By: #### B MP, CDP, MG, RIANNA ####[facility] [address] [place], [place] [id number])[phone] Director: Carlos Rowland MD Glucose [Mass/Vol] 154 mg/dL High 70-99 [facility] Comment on above: Performed By: #### B MP, CDP, MG, RIANNA ####[facility] [address]ifcpory[address] [place], [place] [address])[phone] Director: Carlos Rowland MD Potassium [Moles/Vol] 3.9 mmol/L Normal 3.7-5.3 [facility] Comment on above: Performed By: #### B MP, CDP, MG, RIANNA ####[facility] [address] [place], [place] [address])[phone] Director: Carlos Rowland MD Sodium [Moles/Vol] 136 mmol/L Normal 135-144 [facility] Comment on above: Performed By: #### B MP, CDP, MG, RIANNA ####[facility] [address] [place], [place] [address])[phone] Director: Carlos Rowland MD Urea nitrogen [Mass/Vol] 24 mg/dL High 8-23 [facility] Comment on above: Performed By: #### B MP, CDP, MG, RIANNA ####[facility] [address] [place], [place] [address])[phone] Director: Carlos Rowland MD CBC with Diffon 07-14-2023 Abs. Basophil 0.03 k/uL Normal 0.00-0.20 [facility] Comment on above: Performed By: #### B MP, CDP, MG, RIANNA ####[facility] [address] [place], [place] [address])[phone] Director: Carlos Rowland MD Abs.Imm.Granulocyte 0.08 k/uL Normal 0.00-0.30 [facility] Comment on above: Performed By: #### B MP, CDP, MG, RIANNA ####[facility] U[address]ijzwsfvrtr[address] [place], [place] [address])[phone] Director: Carlos Rowland MD Abs.Neutrophil (Seg) 10.21 k/uL High 1.50-8.10 [facility] Comment on above: Performed By: #### B MP, CDP, MG, RIANNA ####[facility] [address]uhhzt7910 [place] [address] Lab Director: Carlos Rowland MD Basophils/100 WBC (Bld) 0 % Normal 0-2 [facility] Comment on above: Performed By: #### B MP, CDP, MG, RIANNA ####[facility] [address]fsirzjrkq[address] [place], [place] [address])[phone] Director: Carlos Rowland MD Eosinophils (Bld) [#/Vol] 0.12 10*3/uL Normal 0.00-0.44 [facility] Comment on above: Performed By: #### B MP, CDP, MG, RIANNA ####[facility] [address] [place] [address])[phone] Director: Carlos Rowland MD Eosinophils/100 WBC (Bld) 1 % Normal 1-4 [facility] Comment on above: Performed By: #### B MP, CDP, MG, RIANNA ####[facility] Jltkotuzsdgk7378 [place], [place] [address])[phone] Director: Carlos Rowland MD Erythrocyte distribution width (RBC) [Ratio] 15.2 % High 11.8-14.4 [facility] Comment on above: Performed By: #### B MP, CDP, MG, RIANNA ####[facility] Zqprtbfubafo[address] [place], [place] [address])[phone] Director: Carlos Rowland MD Hematocrit (Bld) [Volume fraction] 33.6 % Low 40.7-50.3 [facility] Comment on above: Performed By: #### B MP, CDP, MG, RIANNA ####[facility] [address]rv[address]eyjcpft39[address] [place], [place] [address])[phone] Director: Carlos Rowland MD Hemoglobin (Bld) [Mass/Vol] 10.6 g/dL Low 13.0-17.0 [facility] Comment on above: Performed By: #### B MP, CDP, MG, RIANNA ####[facility] Ikgfasqmbfdg[address]56 [place], [place] [address])[phone] Director: Carlos Rowland MD Immature granulocytes/100 WBC (Bld) 1 % High 0 [facility] Comment on above: Performed By: #### B MP, CDP, MG, RIANNA ####[facility] [address] [place] [address])[phone] Director: Carlos Rowland MD Lymphocytes (Bld) [#/Vol] 1.08 10*3/uL Low 1.10-3.70 [facility] Comment on above: Performed By: #### B MP, CDP, MG, RIANNA ####[facility] [address] [place], [place] [address])[phone] Director: Carlos Rowland MD Lymphocytes/100 WBC (Bld) 9 % Low 24-43 [facility] Comment on above: Performed By: #### B MP, CDP, MG, RIANNA ####[facility] [address] [place], [place] [address])[phone] Director: Carlos Rowland MD MCH (RBC) [Entitic mass] 29.3 pg Normal 25.2-33.5 [facility] Comment on above: Performed By: #### B MP, CDP, MG, RIANNA ####[facility] [address] [place], [place] [address])[phone] Director: Carlos Rowland MD MCHC (RBC) [Mass/Vol] 31.5 g/dL Normal 28.4-34.8 [facility] Comment on above: Performed By: #### B MP, CDP, MG, RIANNA ####[facility] [address] [place] [address])[phone] Director: Carlos Rowland MD MCV (RBC) [Entitic vol] 92.8 fL Normal 82.6-102.9 [facility] Comment on above: Performed By: #### B MP, CDP, MG, RIANNA ####[facility] [address]fh[address]oc26[address] [place], [place] [id number])[phone] Director: Carlos Rowland MD Monocytes (Bld) [#/Vol] 0.85 10*3/uL Normal 0.10-1.20 [facility] Comment on above: Performed By: #### B MP, CDP, MG, RIANNA ####[facility] [address]qq[address]krhy59[address] [place], [place] [id number])[phone] Director: Carlos Rowland MD Monocytes/100 WBC (Bld) 7 % Normal 3-12 [facility] Comment on above: Performed By: #### B MP, CDP, MG, RIANNA ####[facility] Qrtrxwdxmcrf5973 [place], [place] [id number])[phone] Director: Carlos Rowland MD Neutrophil (Seg) 82 % High 36-65 [facility] Comment on above: Performed By: #### B MP, CDP, MG, RIANNA ####[facility] [address]xag[address]eddvgf1927 [place], [place] [id number])[phone] Director: Carlos Rowland MD NRBC Automated 0.0 per 100 WBC Normal 0.0 [facility] Comment on above: Performed By: #### B MP, CDP, MG, RIANNA ####[facility] [address]oosdscnvcxn77[address] [place], [place] [id number])[phone] Director: Carlos Rowland MD Platelet mean volume (Bld) [Entitic vol] 9.8 fL Normal 8.1-13.5 [facility] Comment on above: Performed By: #### B MP, CDP, MG, RIANNA ####[facility] [address]ovps[address] [place], [place] [id number])[phone] Director: Carlos Rowland MD Platelets (Bld) [#/Vol] 179 10*3/uL Normal 138-453 [facility] Comment on above: Performed By: #### B MP, CDP, MG, RIANNA ####[facility] [address]ycl[address]yzv25[address] [place], [place] [id number])[phone] Director: Carlos Rowland MD RBC (Bld) [#/Vol] 3.62 10*6/uL Low 4.21-5.77 [facility] Comment on above: Performed By: #### B MP, CDP, MG, RIANNA ####[facility] Mhsat[address]miptap4083 [place], [place] [id number])[phone] Director: Carlos Rowland MD RBC morphology finding Nom (Bld) ANISOCYTOSIS PRESENT Normal [facility] Comment on above: Performed By: #### B MP, CDP, MG, RIANNA ####[facility] [address]kyoc6[address] [place], [place] [id number])[phone] Director: Carlos Rowland MD WBC (Bld) [#/Vol] 12.4 10*3/uL High 3.5-11.3 [facility] Comment on above: Performed By: #### B MP, CDP, MG, RIANNA ####[facility] [address] [place], [place] [id number])[phone] Director: Carlos Rowland MD Cult,Urineon 07-14-2023 Cult,Urine Specimen Description .URINE Culture NO GROWTH Report Status FINAL 07/14/2023 Normal [facility] Comment on above: Performed By: #### U RC ####[facility] Y[address]juuar[address] [place], [place] [id number])[phone] Director: Carlos Rowland MD Glucose,Whole Bloodon 2023 Glucose [Mass/Vol] 158 mg/dL High 75-110 [facility] Glucose [Mass/Vol] 226 mg/dL High 75-110 [facility] Glucose [Mass/Vol] 272 mg/dL High 75-110 [facility] Glucose [Mass/Vol] 143 mg/dL High 75-110 [facility] Magnesiumon 07-14-2023 Magnesium [Mass/Vol] 2.1 mg/dL Normal 1.6-2.6 [facility] Comment on above: Performed By: #### B MP, CDP, MG, RIANNA ####[facility] [address] [place] [address] lab Director: Carlos Rowland MD Phosphorus, Inorg.on 024 Phosphorus, Inorg. 3.2 mg/dL Normal 2.5-4.5 [facility] Comment on above: Performed By: #### B MP, CDP, MG, RIANNA ####[facility] [address] [place] [address] Lab Director: Carlos Rowland MD XR CERVICAL SPINE [...] Shaq Melendez MD 07/14/23 Final result Normal [facility] Basic Metabolic Profon 07-13 Anion gap [Moles/Vol] 10 mmol/L Normal 9-17 [facility] Comment on above: Performed By: #### U AX UMICAO #### [facility] [employer] [address] [place] [address] [employer] Clerk: Carlos Rowland MD Calcium [Mass/Vol] 8.5 mg/dL Low 8.6-10.4 [facility] Comment on above: Performed By: #### U AX UMICAO #### [facility] [employer] [address] [place] [address] [employer] Clerk: Carlos Rowland MD Chloride [Moles/Vol] 103 mmol/L Normal 98-107 [facility] Comment on above: Performed By: #### U AX, UMICAO #### [facility] [address] [place] [address] [employer] Clerk: Carlos Rowland MD CO2 [Moles/Vol] 24 mmol/L Normal 20-31 [facility] Comment on above: Performed By: #### U AX, UMICAO #### [facility] [address] [place] [address] [employer] Clerk: Carlos Rowland MD Creatinine [Mass/Vol] 1.0 mg/dL Normal 0.7-1.2 [facility] Comment on above: Performed By: #### U AX, UMICAO #### [facility] [address] [place] [address] [employer] Clerk: Carlos Rowland MD GFR/1.73 sq M.predicted among non-blacks MDRD (S/P/Bld) [Vol rate/Area] mL/min/{1.73_m2} Normal >60 [facility] Comment on above: Result Comment: These [...] renal tubular secretion. Performed By: #### U AX, UMICAO #### [facility] [address] [place] [address] [employer] Clerk: Carlos Rowland MD Glucose [Mass/Vol] 195 mg/dL High 70-99 [facility] Comment on above: Performed By: #### U AX, UMICAO #### [facility] [address] [place] [address] [employer] Clerk: Carlos Rowland MD Potassium [Moles/Vol] 4.9 mmol/L Normal 3.7-5.3 [facility] Comment on above: Performed By: #### U AX UMICAO #### [facility] [employer] [address] [place] [address] [employer] Clerk: Carlos Rowland MD Sodium [Moles/Vol] 137 mmol/L Normal 135-144 [facility] Comment on above: Performed By: #### U AX UMICAO #### [facility] [employer] [address] [place] [address] [employer] Clerk: Carlos Rowland MD Urea nitrogen [Mass/Vol] 20 mg/dL Normal 8-23 [facility] Comment on above: Performed By: #### U AXJUSTINAICAO #### [facility] [employer] [address] [place] [address] [employer] Clerk: Carlos Rowland MD CBC with Diffon 07-13-2023 Abs. Basophil 0.06 k/uL Normal 0.00-0.20 [facility] Comment on above: Performed By: #### U RICHAR UMICAO #### [facility] [employer] [address] [place] [address] [employer] Clerk: Carlos Rowland MD Abs.Imm.Granulocyte 0.07 k/uL Normal 0.00-0.30 [facility] Comment on above: Performed By: #### U AX UMICAO #### [facility] [address] [place] [address] [employer] Clerk: Carlos Rowland MD Abs.Neutrophil (Seg) 9.84 k/uL High 1.50-8.10 [facility] Comment on above: Performed By: #### U AX UMICAO #### [facility] [employer] [address] [place] [address] [employer] Clerk: Carlos Rowland MD Basophils/100 WBC (Bld) 1 % Normal 0-2 [facility] Comment on above: Performed By: #### U AXLUZ MARIA #### [facility] [employer] [address] [place] [address] [employer] Clerk: Carlos Rowland MD Eosinophils (Bld) [#/Vol] 0.03 10*3/uL Normal 0.00-0.44 [facility] Comment on above: Performed By: #### U AXJUSTINAICAO #### [facility] [employer] [address] [place] [address] [employer] Clerk: Carlos Rowland MD Eosinophils/100 WBC (Bld) 0 % Low 1-4 [facility] Comment on above: Performed By: #### U AXJUSTINAICAArely #### [facility] [employer] [address] [place] [address] [employer] Clerk: Carlos Rowland MD Erythrocyte distribution width (RBC) [Ratio] 15.3 % High 11.8-14.4 [facility] Comment on above: Performed By: #### U AXLUZ MARIA #### [facility] [employer] [address] [place] [address] [employer] Clerk: Carlos Rowland MD Hematocrit (Bld) [Volume fraction] 35.5 % Low 40.7-50.3 [facility] Comment on above: Performed By: #### U AXJUSTINAICAArely #### [facility] [address] [place] [address] [employer] Clerk: Carlos Rowland MD Hemoglobin (Bld) [Mass/Vol] 10.8 g/dL Low 13.0-17.0 [facility] Comment on above: Performed By: #### U AX UMICAO #### [facility] [employer] [address] [place] [address] [employer] Clerk: Carlos Rowland MD Immature granulocytes/100 WBC (Bld) 1 % High 0 [facility] Comment on above: Performed By: #### U AX, UMICAO #### [address] [address] [employer] Clerk: Carlos Rowland MD Lymphocytes (Bld) [#/Vol] 1.15 10*3/uL Normal 1.10-3.70 [facility] Comment on above: Performed By: #### U AX, UMICAO #### [address] [address] [employer] Clerk: Carlos Rowland MD Lymphocytes/100 WBC (Bld) 10 % Low 24-43 [facility] Comment on above: Performed By: #### U AX, UMICAO #### [address] [address] [employer] Clerk: Carlos Rowland MD MCH (RBC) [Entitic mass] 29.1 pg Normal 25.2-33.5 [facility] Comment on above: Performed By: #### U AX UMICAO #### [address] [address] [employer] Clerk: Carlos Rowland MD MCHC (RBC) [Mass/Vol] 30.4 g/dL Normal 28.4-34.8 [facility] Comment on above: Performed By: #### U AX UMICAO #### [address] [address] [employer] Clerk: Carlos Rowland MD MCV (RBC) [Entitic vol] 95.7 fL Normal 82.6-102.9 [facility] Comment on above: Performed By: #### U AX, UMICAO #### [address] [address] [employer] Clerk: Carlos Rowland MD Monocytes (Bld) [#/Vol] 0.73 10*3/uL Normal 0.10-1.20 [facility] Comment on above: Performed By: #### U AX, UMICAO #### [facility] [address] [place] [address] [employer] Clerk: Carlos Rowland MD Monocytes/100 WBC (Bld) 6 % Normal 3-12 [facility] Comment on above: Performed By: #### U AX, UMICAO #### [facility] [address] [place] [address] [employer] Clerk: Carlos Rowland MD Neutrophil (Seg) 82 % High 36-65 [facility] Comment on above: Performed By: #### U AX, UMICAO #### [facility] [employer] [address] [place] [address] [employer] Collection Clerk: Carlos Rowland MD NRBC Automated 0.0 per 100 WBC Normal 0.0 [facility] Comment on above: Performed By: #### U AX, UMICAO #### [facility] [employer] [address] [place] [address] [employer] Clerk: Calros Rowland MD Platelet mean volume (Bld) [Entitic vol] 9.7 fL Normal 8.1-13.5 [facility] Comment on above: Performed By: #### U AX, UMICAO #### [address] [address] [employer] Clerk: Carlos Rowland MD Platelets (Bld) [#/Vol] 183 10*3/uL Normal 138-453 [facility] Comment on above: Performed By: #### U AX, UMICAO #### [facility] [address] [place] [address] [employer] Clerk: Carlos Rowland MD RBC (Bld) [#/Vol] 3.71 10*6/uL Low 4.21-5.77 [facility] Comment on above: Performed By: #### U AX, UMICAO #### [facility] [address] [place] [address] [employer] Collection Clerk: Carlos Rowland MD RBC morphology finding Nom (Bld) ANISOCYTOSIS PRESENT Normal [facility] Comment on above: Performed By: #### U AXJUSTINAICAO #### [facility] [address] [place] [address] [employer] Collection Clerk: Carlos Rowland MD WBC (Bld) [#/Vol] 11.9 10*3/uL High 3.5-11.3 [facility] Comment on above: Performed By: #### U AXLUZ MARIA #### [facility] [address] [place] [address] [employer] Collection Clerk: Carlos Rowland MD Glucose,Whole Bloodon 2023 Glucose [Mass/Vol] 213 mg/dL High 75-110 [facility] Glucose [Mass/Vol] 189 mg/dL High 75-110 [facility] Glucose [Mass/Vol] 260 mg/dL High 75-110 [facility] Glucose [Mass/Vol] 190 mg/dL High 75-110 [facility] Hemoglobin A1Con 07-13-2023 Glucose [Mass/Vol] 157 mg/dL Normal [facility] Comment on above: Result Comment: The ADA and AACC recommend providing the estimated average glucose result to permit better patient understanding of their HBA1c result. Performed By: #### P HO, CDP, BMP, GLYHGB, MG ####[facility] [address] [place] [address] Lab Director: Cralos Rowland MD HbA1c (Bld) [Mass fraction] 7.1 % High 4.0-6.0 [facility] Comment on above: Performed By: #### P HO, CDP, BMP, GLYHGB, MG ####[facility] [address] [place] [address] Lab Director: Carlos Rowland MD MRI CERVICAL SPINE [...] Shalini Garcia MD 07/13/23 Final result Normal [facility] Magnesiumon 07-13-2023 Magnesium [Mass/Vol] 1.6 mg/dL Normal 1.6-2.6 [facility] Comment on above: Performed By: #### P HO, CDP, BMP, GLYHGB, MG ####[facility] [address] [place] [address] Lab Director: Carlos Rowland MD PTon 07-13-2023 INR Coag (PPP) [Relative time] 1.5 {INR} Normal [facility] Comment on above: Result Comment: Therapeutic Range: Moderate Anticoagulant Intensity: INR = 2.0-3.0 High Anticoagulant Intensity: INR = 2.5-3.5 Performed By: #### P T ####[facility] [address] [place] [address] Lab Director: Carlos Rowland MD PT Coag (PPP) [Time] 17.7 s High 11.7-14.9 [facility] Comment on above: Performed By: #### P T ####[address] [address] Lab Director: Carlos Rowland MD Phosphorus, Inorg.on 024 Phosphorus, Inorg. 2.9 mg/dL Normal 2.5-4.5 [facility] Comment on above: Performed By: #### P HO, CDP, BMP, GLYHGB, MG ####[facility] [address] [place] [address] Lab Director: Carlos Rowland MD UA w/Reflex Cultureon 2023 Bilirubin, SemiQt,Ur Negative Normal NEG [facility] Comment on above: Performed By: #### U AX UMICAO #### [facility] [address] [place] [address] [employer]oupon Collection Clerk: Carlos Rowland MD Blood, Urine SMALL Abnormal NEG [facility] Comment on above: Performed By: #### U AX UMICAO #### [facility] [employer] [address] [place] [phone] [employer] Collection Clerk: Carlos Rowland MD Clarity (U) Clear Normal CLEAR [facility] Comment on above: Performed By: #### U AX, UMICAO #### [facility] [address] [place] [address] [employer] Clerk: Carlos Rowland MD Color (U) Yellow Normal YEL [facility] Comment on above: Performed By: #### U AX, UMICAO #### [facility] [address] [place] [address] [employer] Collection Clerk: Carlos Rowland MD Glucose Ql (U) Negative Normal NEG [facility] Comment on above: Performed By: #### U AX, UMICAO #### [facility] [address] [place] [address] [employer] Collection Clerk: Carlos Rowland MD Ketones Ql (U) Negative Normal NEG [facility] Comment on above: Performed By: #### U AX, UMICAO #### [facility] [address] [address] [employer] Collection Clerk: Carlos Rowland MD Leukocyte esterase Test strip Ql (U) TRACE Abnormal NEG [facility] Comment on above: Performed By: #### U AX, UMICAO #### [address] [address] [employer] Collection Clerk: Carlos Rowland MD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 PT #### [facility] [address] [place] [address] Dr. Obdulia Ng Calcium [Mass/Vol] 8.3 mg/dL Critically low 8.5-10.1 [facility] Comment on above: Performed By: #### P TT, PT #### [facility] [address] [place] [address] Dr. Obdulia Ng Chloride [Moles/Vol] 100 mmol/L Normal 98-107 [facility] Comment on above: Performed By: #### P TT, PT #### [facility] [address] [place] [address] Dr. Obdulia Ng CO2 [Moles/Vol] 32.5 mmol/L Critically high 21.0-32.0 [facility] Comment on above: Performed By: #### P TT, PT #### [facility] [address] [place] [address] Dr. Obdulia Ng Creatinine [Mass/Vol] 1.42 mg/dL Critically high 0.70-1.30 [facility] Comment on above: Performed By: #### P TT, PT #### [facility] [address] [place] [address] Dr. Obdulia Ng EGFR-AF UKRAINIAN 58 mL/min/1.73m2 Critically low >=60 [facility] Comment on above: Performed By: #### P TT, PT #### [facility] [address] [place] [address] Dr. Obdulia Ng EGFR-NON AF UKRAINIAN 48 mL/min/1.73m2 Critically low >=60 [facility] Comment on above: Performed By: #### P TT, PT #### [facility] [address] [place] [address] Dr. Obdulia Ng Glucose [Mass/Vol] 118 mg/dL Critically high 74-106 T [facility] Comment on above: Performed By: #### P TT, PT #### [facility] [address] [place] [address] Dr. Obdulia Ng Potassium [Moles/Vol] 3.2 mmol/L Critically low 3.5-5.1 [facility] Comment on above: Performed By: #### P TT, PT #### [facility] [address] [place] [address] Dr. Obdulia Ng Sodium [Moles/Vol] 141 mmol/L Normal 136-145 [facility] Comment on above: Performed By: #### P TT, PT #### [facility] [address] [place] [address] Dr. Obdulia Ng Urea nitrogen [Mass/Vol] 30.0 mg/dL Critically high 7.0-18.0 [facility] Comment on above: Performed By: #### P TT, PT #### [facility] [address] [place] [address] Dr. Obdulia Ng Urea nitrogen/Creatinine [Mass ratio] 21.1 mg/mg Normal [facility] Comment on above: Performed By: #### P TT, PT #### [facility] [address] [place] [address] Dr. Obdulia Ng PROTIMEon 04-21-2022 INR Coag (PPP) [Relative time] 2.09 {INR} Normal [facility] Comment on above: Performed By: #### C VDTBH #### [facility] [address] [place] [address] Dr. Obdulia Ng INR GUIDELINES SEE BELOW Normal [facility] Comment on above: Result Comment: BRAD RED INR: 2.0 - 3.0 CONDITIONS NOT LISTED BELOW 2.5 - 3.5 FOR PROSTHETIC HEART VALVE REPLACEMENT 2.5 - 3.5 RECURRENT THROMBOSIS Performed By: #### C VDTBH #### [facility] [address] [place] [address] Dr. Obdulia Ng PT Coag (PPP) [Time] 21.5 s Critically high 9.0-11.6 [facility] Comment on above: Performed By: #### C VDTBH #### [facility] [address] [place] [address] Dr. Obdulia Ng BNPon 04-20-2022 Natriuretic peptide B (Bld) [Mass/Vol] 95111.0 pg/mL Critically high <=1,800.0 [facility] Comment on above: Performed By: #### C VDTBH #### [facility] [address] [place] [address] Dr. Obdulia Ng CBC AUTO DIFFon 04-20-2022 BASO # 0.1 103/ul Normal 0.0-0.1 [facility] Comment on above: Performed By: #### C VDTBH #### [facility] [address] [place] [address] Dr. Obdulia Ng Basophils/100 WBC (Bld) 1.1 % Normal 0.2-2.0 [facility] Comment on above: Performed By: #### C VDTBH #### [facility] [address] [place] [address] Dr. Obdulia Ng EO # 0.1 103/ul Normal 0.0-0.7 [facility] Comment on above: Performed By: #### C VDTBH #### [facility] [address] [place] [address] Dr. Obdulia Ng Eosinophils/100 WBC (Bld) 1.1 % Normal 0.9-7.0 [facility] Comment on above: Performed By: #### C VDTBH #### [facility] [address] [place] [address] Dr. Obdulia Ng Erythrocyte distribution width (RBC) [Ratio] 15.7 % Critically high 11.0-15.0 [facility] Comment on above: Performed By: #### C VDTBH #### [facility] [address] [place] [address] Dr. Obdulia Ng Hematocrit (Bld) [Volume fraction] 37.6 % Critically low 42.0-54.0 [facility] Comment on above: Performed By: #### C VDTBH #### [facility] [address] [place] [address] Dr. Obdulia Ng Hemoglobin (Bld) [Mass/Vol] 12.2 g/dL Critically low 14.0-18.0 [facility] Comment on above: Performed By: #### C VDTBH #### [facility] [address] [place] [address] Dr. Obdulia Ng IG # 0.03 10e3/ul Normal 0.00-0.03 [facility] Comment on above: Performed By: #### C VDTBH #### [facility] [address] [place] [address] Dr. Obdulia Ng IG % 0.4 % Normal 0.0-0.5 [facility] Comment on above: Performed By: #### C VDTBH #### [facility] [address] [place] [address] Dr. Obdulia Ng LYMPH # 1.7 103/ul Normal 1.2-3.8 [facility] Comment on above: Performed By: #### C VDTBH #### [facility] [address] [place] [address] Dr. Obdulia Ng Lymphocytes/100 WBC (Bld) 22.2 % Normal 20.5-60.0 [facility] Comment on above: Performed By: #### C VDTBH #### [facility] [address] [place] [address] Dr. Obdulia Ng MANUAL DIFF REQ NO Normal [facility] Comment on above: Performed By: #### C VDTBH #### [facility] [address] [place] [address] Dr. Obdulia Ng MCH (RBC) [Entitic mass] 31.0 pg Normal 25.9-34.0 [facility] Comment on above: Performed By: #### C VDTBH #### [facility] [address] [place] [address] Dr. Obdulia Ng MCHC (RBC) [Mass/Vol] 32.4 g/dL Normal 29.9-35.2 [facility] Comment on above: Performed By: #### C VDTBH #### [facility] [address] [place] [address] Dr. Obdulia Ng MCV (RBC) [Entitic vol] 95.4 fL Critically high 80.0-94.0 [facility] Comment on above: Performed By: #### C VDTBH #### [facility] [address] [address] [address] Obdulia Ng MONO # 0.6 103/ul Normal 0.3-0.8 [facility] Comment on above: Performed By: #### C VDTBH #### [facility] [address] [address] [address] Obdulia Ng Monocytes/100 WBC (Bld) 8.4 % Normal 1.7-12.0 [facility] Comment on above: Performed By: #### C VDTBH #### [facility] [address] [place] [address] Dr. Obdulia Ng NEUT # 5.1 103/ul Normal 1.4-6.5 [facility] Comment on above: Performed By: #### C VDTBH #### [facility] [address] [place] [address] Dr. Obdulia Ng Neutrophils/100 WBC (Bld) 66.8 % Normal 43.0-75.0 [facility] Comment on above: Performed By: #### C VDTBH #### [facility] [address] [place] [address] Dr. Obdulia Ng Platelet mean volume (Bld) [Entitic vol] 9.8 fL Normal 9.5-13.5 [facility] Comment on above: Performed By: #### C VDTBH #### [facility] [address] [place] [address] Dr. Obdulia Ng PLT 268 103/ul Normal 150-450 [facility] Comment on above: Performed By: #### C VDTBH #### [facility] [address] [place] [address] Dr. Obdulia Ng RBC 3.94 106/ul Critically low 4.70-6.10 [facility] Comment on above: Performed By: #### C VDTBH #### [facility] [address] [place] [address] Dr. Obdulia gN WBC 7.6 103/ul Normal 4.0-11.0 [facility] Comment on above: Performed By: #### C VDTBH #### [facility] [address] [address] [address] Obdulia Ng ECHO LIMITED STUDYon 04-20-2 022 ECHO LIMITED STUDY Patient: YVAN BERGMAN Exam Date: 04/20/2022 : 1940 Gender:M Ordering : DR BRIDGET FARLEY . Admission #: [id number] Family : Order #: [id number] CLICK HERE TO VIEW EXAM ECHOCARDIOGRAM REPORT [...] on 04/21/2022 at 14:23 Approved by: Johnie Mroales M.D. on 04/21/2022 at 14:27 Normal [facility] POINT OF CARE GLUCOSEon 03-24 Glucose [Mass/Vol] 146 mg/dL Critically high -106 [facility] Comment on above: Performed By: #### T SH, T4 #### [facility] [address] [address] [address] Obdulia Ng Glucose [Mass/Vol] 177 mg/dL Critically high [facility]106 [facility] Comment on above: Performed By: #### P OCGLUC #### [facility] [address] [address] [address] Obdulia Ng Glucose [Mass/Vol] 164 mg/dL Critically high [facility]106 [facility] Comment on above: Performed By: #### P OCGLUC #### [facility] [address] [address] [address] Obdulia Ng PROF CHEM 8 (BAS METB)on Anion gap [Moles/Vol] 11.2 mmol/L Normal [facility] Comment on above: Performed By: #### C VDTBH #### [facility] [address] [address] [address] Obdulia Ng Calcium [Mass/Vol] 8.5 mg/dL Normal 8.5-10.1 [facility] Comment on above: Performed By: #### C VDTBH #### [facility] [address] [place] [address] Dr. Obdulia Ng Chloride [Moles/Vol] 104 mmol/L Normal 98-107 [facility] Comment on above: Performed By: #### C VDTBH #### [facility] [address] [address] [address] Obdulia Ng CO2 [Moles/Vol] 28.6 mmol/L Normal 21.0-32.0 [facility] Comment on above: Performed By: #### C VDTBH #### [facility] [address] [address] [address] Obdulia Ng Creatinine [Mass/Vol] 1.32 mg/dL Critically high 0.70-1.30 [facility] Comment on above: Performed By: #### C VDTBH #### [facility] [address] [address] [address] Obdulia Ng EGFR-AF UKRAINIAN >60 Normal >=60 [facility] Comment on above: Performed By: #### C VDTBH #### [facility] [address] [address] [address] Obdulia Ng EGFR-NON AF UKRAINIAN 52 mL/min/1.73m2 Critically low >=60 [facility] Comment on above: Performed By: #### C VDTBH #### [facility] [address] [address] [address] Obdulia Ng Glucose [Mass/Vol] 92 mg/dL Normal 74-106 [facility] Comment on above: Performed By: #### C VDTBH #### [facility] [address] [address] [address] Obdulia Ng Potassium [Moles/Vol] 3.8 mmol/L Normal 3.5-5.1 [facility] Comment on above: Performed By: #### C VDTBH #### [facility] [address] [address] [address] Obdulia Ng Sodium [Moles/Vol] 140 mmol/L Normal 136-145 [facility] Comment on above: Performed By: #### C VDTBH #### [facility] [address] [address] [address] Obdulia Ng Urea nitrogen [Mass/Vol] 24.0 mg/dL Critically high 7.0-18.0 [facility] Comment on above: Performed By: #### C VDTBH #### [facility] [address] [address] [address] Obdulia Ng Urea nitrogen/Creatinine [Mass ratio] 18.2 mg/mg Normal [facility] Comment on above: Performed By: #### C VDTBH #### [facility] [address] [place] [address] Dr. Obdulia Ng PROTIMEon 04-20-2022 INR Coag (PPP) [Relative time] 2.11 {INR} Normal [facility] Comment on above: Performed By: #### C VDTBH #### [facility] [address] [place] [address] Dr. Obdulia Ng INR GUIDELINES SEE BELOW Normal [facility] Comment on above: Result Comment: BRAD RED INR: 2.0 - 3.0 CONDITIONS NOT LISTED BELOW 2.5 - 3.5 FOR PROSTHETIC HEART VALVE REPLACEMENT 2.5 - 3.5 RECURRENT THROMBOSIS Performed By: #### C VDTBH #### [facility] [address] [place] [address] Dr. Obdulia Ng PT Coag (PPP) [Time] 21.7 s Critically high 9.0-11.6 [facility] Comment on above: Performed By: #### C VDTBH #### [facility] [address] [place] [address] Dr. Obdulia Ng BNPon 04-19-2022 Natriuretic peptide B (Bld) [Mass/Vol] 87433.0 pg/mL Critically high <=1,800.0 [facility] Comment on above: Performed By: #### P OCGLUC #### [facility] [address] [place] [address] Dr. Obdulia Ng CBC AUTO DIFFon 04-19-2022 BASO # 0.1 103/ul Normal 0.0-0.1 [facility] Comment on above: Performed By: #### C VDTBH #### [facility] [address] [place] [address] Dr. Obdulia Ng Basophils/100 WBC (Bld) 0.8 % Normal 0.2-2.0 [facility] Comment on above: Performed By: #### C VDTBH #### [facility] [address] [place] [address] Dr. Obdulia Ng EO # 0.0 103/ul Normal 0.0-0.7 [facility] Comment on above: Performed By: #### C VDTBH #### [facility] [address] [place] [address] Dr. Obdulia Ng Eosinophils/100 WBC (Bld) 0.4 % Critically low 0.9-7.0 [facility] Comment on above: Performed By: #### C VDTBH #### [facility] [address] [place] [address] Dr. Obdulia Ng Erythrocyte distribution width (RBC) [Ratio] 15.7 % Critically high 11.0-15.0 [facility] Comment on above: Performed By: #### C VDTBH #### [facility] [address] [place] [address] Dr. Obdulia Ng Hematocrit (Bld) [Volume fraction] 38.3 % Critically low 42.0-54.0 [facility] Comment on above: Performed By: #### C VDTBH #### [facility] [address] [place] [address] Dr. Obdulia Ng Hemoglobin (Bld) [Mass/Vol] 12.7 g/dL Critically low 14.0-18.0 [facility] Comment on above: Performed By: #### C VDTBH #### [facility] [address] [place] [address] Dr. Obdulia Ng IG # 0.02 10e3/ul Normal 0.00-0.03 [facility] Comment on above: Performed By: #### C VDTBH #### [facility] [address] [place] [address] Dr. Obdulia Ng IG % 0.2 % Normal 0.0-0.5 [facility] Comment on above: Performed By: #### C VDTBH #### [facility] [address] [place] [address] Dr. Obdulia Ng LYMPH # 1.3 103/ul Normal 1.2-3.8 [facility] Comment on above: Performed By: #### C VDTBH #### [facility] [address] [place] [address] Dr. Obdulia Ng Lymphocytes/100 WBC (Bld) 13.4 % Critically low 20.5-60.0 [facility] Comment on above: Performed By: #### C VDTBH #### [facility] [address] [place] [address] Dr. Obdulia Ng MANUAL DIFF REQ NO Normal [facility] Comment on above: Performed By: #### C VDTBH #### [facility] [address] [place] [address] Dr. Obdulia Ng MCH (RBC) [Entitic mass] 31.3 pg Normal 25.9-34.0 [facility] Comment on above: Performed By: #### C VDTBH #### [facility] [address] [place] [address] Dr. Obdulia Ng MCHC (RBC) [Mass/Vol] 33.2 g/dL Normal 29.9-35.2 [facility] Comment on above: Performed By: #### C VDTBH #### [facility] [address] [place] [address] Dr. Obdulia Ng MCV (RBC) [Entitic vol] 94.3 fL Critically high 80.0-94.0 [facility] Comment on above: Performed By: #### C VDTBH #### [facility] [address] [place] [address] Dr. Obdulia Ng MONO # 0.8 103/ul Normal 0.3-0.8 [facility] Comment on above: Performed By: #### C VDTBH #### [facility] [address] [place] [address] Dr. Obdulia Ng Monocytes/100 WBC (Bld) 7.7 % Normal 1.7-12.0 [facility] Comment on above: Performed By: #### C VDTBH #### [facility] [address] [place] [address] Dr. Obdulia Ng NEUT # 7.7 103/ul Critically high 1.4-6.5 [facility] Comment on above: Performed By: #### C VDTBH #### [facility] [address] [address] [address] Obdulia Ng Neutrophils/100 WBC (Bld) 77.5 % Critically high 43.0-75.0 [facility] Comment on above: Performed By: #### C VDTBH #### [facility] [address] [address] [address] Obdulia Ng Platelet mean volume (Bld) [Entitic vol] 9.7 fL Normal 9.5-13.5 [facility] Comment on above: Performed By: #### C VDTBH #### [facility] [address] [address] [address] Obdulia Ng PLT 277 103/ul Normal 150-450 [facility] Comment on above: Performed By: #### C VDTBH #### [facility] [address] [place] [address] Dr. Obdulia Ng RBC 4.06 106/ul Critically low 4.70-6.10 [facility] Comment on above: Performed By: #### C VDTBH #### [facility] [address] [address] [address] Obdulia Ng WBC 10.0 103/ul Normal 4.0-11.0 [facility] Comment on above: Performed By: #### C VDTBH #### [facility] [address] [place] [address] Dr. Obdulia Ng [facility]24 SARS-CoV-2 (COVID-19) RNA SHELBY+probe Ql (Unsp spec) Not detected Normal NOT DETECTED [facility] Comment on above: Result Comment: [...] for this test is supported by the Pharmacognosist of Health and Human Service's declaration that [...] used). Performed By: #### C VDTBH #### [facility] [address] [place] [address] Dr. Obdulia Ng POINT OF CARE GLUCOSEon 03-24 Glucose [Mass/Vol] 206 mg/dL Critically high 74-106 [facility] Comment on above: Performed By: #### P OCGLUC #### [facility] [address] [place] [address] Dr. Obdulia Ng PROF 14(COMP METB)on 022 Albumin [Mass/Vol] 3.3 g/dL Critically low 3.4-5.0 [facility] Comment on above: Performed By: #### P OCGLUC #### [facility] [address] [place] [address] Dr. Obdulia Ng Albumin/Globulin [Mass ratio] 1.1 {ratio} Normal [facility] Comment on above: Performed By: #### P OCGLUC #### [facility] [address] [place] [address] Dr. Obdulia Ng ALP [Catalytic activity/Vol] 82 U/L Normal 46-116 [facility] Comment on above: Performed By: #### P OCGLUC #### [facility] [address] [place] [address] Dr. Obdulia Ng ALT [Catalytic activity/Vol] 42 U/L Normal 16-63 [facility] Comment on above: Performed By: #### P OCGLUC #### [facility] [address] [place] [address] Dr. Obdulia Ng Anion gap [Moles/Vol] 14.7 mmol/L Normal [facility] Comment on above: Performed By: #### P OCGLUC #### [facility] [address] [place] [address] Dr. Obdulia Ng AST [Catalytic activity/Vol] 19 U/L Normal 15-37 [facility] Comment on above: Performed By: #### P OCGLUC #### [facility] [address] [address] [address] Obdulia Ng Bilirubin [Mass/Vol] 1.4 mg/dL Critically high 0.2-1.0 [facility] Comment on above: Performed By: #### P OCGLUC #### [facility] [address] [address] [address] Obdulia Ng Calcium [Mass/Vol] 8.7 mg/dL Normal 8.5-10.1 [facility] Comment on above: Performed By: #### P OCGLUC #### [facility] [address] [place] [address] Dr. Obdulia Ng Chloride [Moles/Vol] 105 mmol/L Normal 98-107 [facility] Comment on above: Performed By: #### P OCGLUC #### [facility] [address] [place] [address] Dr. Obdulia Ng CO2 [Moles/Vol] 22.3 mmol/L Normal 21.0-32.0 [facility] Comment on above: Performed By: #### P OCGLUC #### [facility] [address] [place] [address] Dr. Obdulia Ng Creatinine [Mass/Vol] 1.20 mg/dL Normal 0.70-1.30 [facility] Comment on above: Performed By: #### P OCGLUC #### [facility] [address] [place] [address] Dr. Obdulia Ng EGFR-AF UKRAINIAN >60 Normal >=60 [facility] Comment on above: Performed By: #### P OCGLUC #### [facility] [address] [place] [address] Dr. Obdulia Ng EGFR-NON AF UKRAINIAN 58 mL/min/1.73m2 Critically low >=60 [facility] Comment on above: Performed By: #### P OCGLUC #### [facility] [address] [place] [address] Dr. Obdulia Ng Globulin (S) [Mass/Vol] 3.1 g/dL Normal [facility] Comment on above: Performed By: #### P OCGLUC #### [facility] [address] [address] [address] Obdulia Ng Glucose [Mass/Vol] 124 mg/dL Critically high 74-106 [facility] Comment on above: Performed By: #### P OCGLUC #### [facility] [address] [address] [address] Obdulia Ng Potassium [Moles/Vol] 4.0 mmol/L Normal 3.5-5.1 [facility] Comment on above: Performed By: #### P OCGLUC #### [facility] [address] [place] [address] Dr. Obdulia Ng Protein [Mass/Vol] 6.4 g/dL Normal 6.4-8.2 [facility] Comment on above: Performed By: #### P OCGLUC #### [facility] [address] [address] [address] Obdulia Ng Sodium [Moles/Vol] 138 mmol/L Normal 136-145 [facility] Comment on above: Performed By: #### P OCGLUC #### [facility] [address] [place] [address] Dr. Obdulia Ng Urea nitrogen [Mass/Vol] 23.0 mg/dL Critically high 7.0-18.0 [facility] Comment on above: Performed By: #### P OCGLUC #### [facility] [address] [place] [address] Dr. Obdulia Ng Urea nitrogen/Creatinine [Mass ratio] 19.2 mg/mg Normal [facility] Comment on above: Performed By: #### P OCGLUC #### [facility] [address] [place] [address] Dr. Obdulia Ng PROTIMEon 04-19-2022 INR Coag (PPP) [Relative time] 1.88 {INR} Normal [facility] Comment on above: Performed By: #### P TT, PT #### [facility] [address] [place] [address] Dr. Obdulia Ng INR GUIDELINES SEE BELOW Normal [facility] Comment on above: Result Comment: BRAD RED INR: 2.0 - 3.0 CONDITIONS NOT LISTED BELOW 2.5 - 3.5 FOR PROSTHETIC HEART VALVE REPLACEMENT 2.5 - 3.5 RECURRENT THROMBOSIS Performed By: #### P TT, PT #### [facility] [address] [address] [address] Obdulia Ng PT Coag (PPP) [Time] 19.5 s Critically high 9.0-11.6 [facility] Comment on above: Performed By: #### P TT, PT #### [facility] [address] [address] [address] Obdulia Ng PTTon 04-19-2022 aPTT Coag (Bld) [Time] 29.1 s Normal 22.3-36.2 [facility] Comment on above: Performed By: #### P TT, PT #### [facility] [address] [address] [address] Obdulia Ng TROPONIN, HIGH SENSITIVITYon 04-19-2022 HSTROP 20.6 pg/mL Normal 4.0-76.1 [facility] Comment on above: Result Comment: CUT- OFF POINTS HAVE BEEN ESTABLISHED BASED ON THE FOURTH UNIVERSAL DEFINITIONS OF MYOCARDIAL INFARCTION. THE UPPER REFERENCE LIMIT (URL) OF TROPONIN, DEFINED THE 99TH PERCENTILE OF cTnI DISTRIBUTION IN A REFERENCE POPULATION, HAS BEEN CONFIRMED THE DECISION THRESHOLD FOR MN DIAGNOSIS. Performed By: #### P OCGLUC #### [facility] [address] [place] [address] Dr. Obdulia Ng XR CHEST 1 Von 04-19-2022 XR [...] by: BROOKS STEPHENSON Date: 2022-04-19 16:11 Normal [facility] PROTIMEon 04-03-2022 INR Coag (PPP) [Relative time] 4.04 {INR} Normal [facility] Comment on above: Performed By: #### P OCGLUC #### [facility] [address] [address] [address] Obdulia Ng INR GUIDELINES SEE BELOW Normal [facility] Comment on above: Result Comment: BRAD RED INR: 2.0 - 3.0 CONDITIONS NOT LISTED BELOW 2.5 - 3.5 FOR PROSTHETIC HEART VALVE REPLACEMENT 2.5 - 3.5 RECURRENT THROMBOSIS Performed By: #### P OCGLUC #### [facility] [address] [address] [address] Obdulia Ng PT Coag (PPP) [Time] 39.8 s Critically high 9.0-11.6 [facility] Comment on above: Performed By: #### P OCGLUC #### [facility] [address] [address] [address] Obdulia Ng Follow-Upon 03-12-2022 Follow-Up [id number] Joby Bergman 1940 M Date Provider Department Center 03/12/2022 PRAKASH PARSON Family History Problem Relation Age of Onset Heart attack Father Family Status - Relation Status Age at Father Level of Service:22809 ID OFFICE/OUTPATIENT ESTABLISHED MOD MDM 30-39 MIN Normal [facility] Office Visiton 02-19-2022 Follow-up visit [id number] Joby Bergman 1940 M Date Provider Department Center 02/19/2022 PRAKASH PARSON Family History Problem Relation Age of Onset Heart attack Father Family Status - Relation Status Age at Father Level of Service:14089 ID OFFICE/OUTPATIENT NEW HIGH MDM 60-74 MINUTES Reason for Visit and Comments: Atrial Fibrillation [80] Congestive Heart Failure [127] Palpitations [054668] Normal [facility] BNPon 02-18-2022 Natriuretic peptide B (Bld) [Mass/Vol] 4200.0 pg/mL Critically high <=1,800.0 [facility] Comment on above: Performed By: #### P TT, PT #### [facility] [address] [place] [address] Dr. Obdulia Ng CBC AUTO DIFFon 02-18-2022 BASO # 0.0 103/ul Normal 0.0-0.1 [facility] Comment on above: Performed By: #### C VDTBH #### [facility] [address] [place] [address] Dr. Obdulia Ng Basophils/100 WBC (Bld) 0.3 % Normal 0.2-2.0 [facility] Comment on above: Performed By: #### C VDTBH #### [facility] [address] [place] [address] Dr. Obdulia Ng EO # 0.0 103/ul Normal 0.0-0.7 [facility] Comment on above: Performed By: #### C VDTBH #### [facility] [address] [place] [address] Dr. Obdulia Ng Eosinophils/100 WBC (Bld) 0.1 % Critically low 0.9-7.0 [facility] Comment on above: Performed By: #### C VDTBH #### [facility] [address] [place] [address] Dr. Obdulia Ng Erythrocyte distribution width (RBC) [Ratio] 14.6 % Normal 11.0-15.0 [facility] Comment on above: Performed By: #### C VDTBH #### [facility] [address] [place] [address] Dr. Obdulia Ng Hematocrit (Bld) [Volume fraction] 37.7 % Critically low 42.0-54.0 [facility] Comment on above: Performed By: #### C VDTBH #### [facility] [address] [place] [address] Dr. Obdulia Ng Hemoglobin (Bld) [Mass/Vol] 12.3 g/dL Critically low 14.0-18.0 [facility] Comment on above: Performed By: #### C VDTBH #### [facility] [address] [place] [address] Dr. Obdulia Ng IG # 0.04 10e3/ul Critically high 0.00-0.03 [facility] Comment on above: Performed By: #### C VDTBH #### [facility] [address] [place] [address] Dr. Obdulia Ng IG % 0.4 % Normal 0.0-0.5 [facility] Comment on above: Performed By: #### C VDTBH #### [facility] [address] [place] [address] Dr. Obdulia Ng LYMPH # 1.1 103/ul Critically low 1.2-3.8 [facility] Comment on above: Performed By: #### C VDTBH #### [facility] [address] [place] [address] Dr. Obdulia Ng Lymphocytes/100 WBC (Bld) 11.0 % Critically low 20.5-60.0 [facility] Comment on above: Performed By: #### C VDTBH #### [facility] [address] [place] [address] Dr. Obdulia Ng MANUAL DIFF REQ NO Normal [facility] Comment on above: Performed By: #### C VDTBH #### [facility] [address] [place] [address] Dr. Obdulia Ng MCH (RBC) [Entitic mass] 31.1 pg Normal 25.9-34.0 [facility] Comment on above: Performed By: #### C VDTBH #### [facility] [address] [place] [address] Dr. Obdulia Ng MCHC (RBC) [Mass/Vol] 32.6 g/dL Normal 29.9-35.2 [facility] Comment on above: Performed By: #### C VDTBH #### [facility] [address] [place] [address] Dr. Obdulia Ng MCV (RBC) [Entitic vol] 95.4 fL Critically high 80.0-94.0 [facility] Comment on above: Performed By: #### C VDTBH #### [facility] [address] [place] [address] Dr. Obdulia Ng MONO # 1.4 103/ul Critically high 0.3-0.8 [facility] Comment on above: Performed By: #### C VDTBH #### [facility] [address] [place] [address] Dr. Obdulia Ng Monocytes/100 WBC (Bld) 14.4 % Critically high 1.7-12.0 [facility] Comment on above: Performed By: #### C VDTBH #### [facility] [address] [place] [address] Dr. Obdulia Ng NEUT # 7.2 103/ul Critically high 1.4-6.5 [facility] Comment on above: Performed By: #### C VDTBH #### [facility] [address] [place] [address] Dr. Obdulia Ng Neutrophils/100 WBC (Bld) 73.8 % Normal 43.0-75.0 [facility] Comment on above: Performed By: #### C VDTBH #### [facility] [address] [place] [address] Dr. Obdulia Ng Platelet mean volume (Bld) [Entitic vol] 9.9 fL Normal 9.5-13.5 [facility] Comment on above: Performed By: #### C VDTBH #### [facility] [address] [place] [address] Dr. Obdulia Ng PLT 220 103/ul Normal 150-450 [facility] Comment on above: Performed By: #### C VDTBH #### [facility] [address] [place] [address] Dr. Obdulia Ng RBC 3.95 106/ul Critically low 4.70-6.10 [facility] Comment on above: Performed By: #### C VDTBH #### [facility] [address] [place] [address] Dr. Obdulia Ng WBC 9.7 103/ul Normal 4.0-11.0 [facility] Comment on above: Performed By: #### C VDTBH #### [facility] [address] [place] [address] Dr. Obdulia Ng POINT OF CARE GLUCOSEon 01-22 Glucose [Mass/Vol] 127 mg/dL Critically high 74-106 [facility] Comment on above: Performed By: #### P OCGLUC #### [facility] [address] [place] [address] Dr. Obdulia Ng PROF CHEM 8 (BAS METB)on Anion gap [Moles/Vol] 11.7 mmol/L Normal [facility] Comment on above: Performed By: #### P TT, PT #### [facility] [address] [place] [address] Dr. Obdulia Ng Calcium [Mass/Vol] 8.2 mg/dL Critically low 8.5-10.1 [facility] Comment on above: Performed By: #### P TT, PT #### [facility] [address] [place] [address] Dr. Obdulia Ng Chloride [Moles/Vol] 105 mmol/L Normal 98-107 [facility] Comment on above: Performed By: #### P TT, PT #### [facility] [address] [place] [address] Dr. Obdulia Ng CO2 [Moles/Vol] 27.3 mmol/L Normal 21.0-32.0 [facility] Comment on above: Performed By: #### P TT, PT #### [facility] [address] [place] [address] Dr. Obdulia Ng Creatinine [Mass/Vol] 1.22 mg/dL Normal 0.70-1.30 [facility] Comment on above: Performed By: #### P TT, PT #### [facility] [address] [place] [address] Dr. Obdulia Ng EGFR-AF UKRAINIAN >60 Normal >=60 [facility] Comment on above: Performed By: #### P TT, PT #### [facility] [address] [address] [address] Obdulia Ng EGFR-NON AF UKRAINIAN 57 mL/min/1.73m2 Critically low >=60 [facility] Comment on above: Performed By: #### P TT, PT #### [facility] [address] [address] [address] Obdulia Ng Glucose [Mass/Vol] 129 mg/dL Critically high 74-106 [facility] Comment on above: Performed By: #### P TT, PT #### [facility] [address] [address] [address] Obdulia Ng Potassium [Moles/Vol] 4.0 mmol/L Normal 3.5-5.1 [facility] Comment on above: Performed By: #### P TT, PT #### [facility] [address] [address] [address] Obdulia Ng Sodium [Moles/Vol] 140 mmol/L Normal 136-145 [facility] Comment on above: Performed By: #### P TT, PT #### [facility] [address] [address] [address] Obdulia Ng Urea nitrogen [Mass/Vol] 31.0 mg/dL Critically high 7.0-18.0 [facility] Comment on above: Performed By: #### P TT, PT #### [facility] [address] [address] [address] Obdulia Ng Urea nitrogen/Creatinine [Mass ratio] 25.4 mg/mg Normal [facility] Comment on above: Performed By: #### P TT, PT #### [facility] [address] [address] [address] Obdulia Ng PROTIMEon 02-18-2022 INR Coag (PPP) [Relative time] 1.72 {INR} Normal [facility] Comment on above: Performed By: #### P OCGLUC #### [facility] [address] [address] [address] Obdulia Ng INR GUIDELINES SEE BELOW Normal [facility] Comment on above: Result Comment: BRAD RED INR: 2.0 - 3.0 CONDITIONS NOT LISTED BELOW 2.5 - 3.5 FOR PROSTHETIC HEART VALVE REPLACEMENT 2.5 - 3.5 RECURRENT THROMBOSIS Performed By: #### P OCGLUC #### [facility] [address] [place] [address] Dr. Obdulia Ng PT Coag (PPP) [Time] 17.9 s Critically high 9.0-11.6 [facility] Comment on above: Performed By: #### P OCGLUC #### [facility] [address] [place] [address] Dr. Obdulia Ng BNPon 02-17-2022 Natriuretic peptide B (Bld) [Mass/Vol] 64348.0 pg/mL Critically high <=1,800.0 [facility] Comment on above: Performed By: #### P OCGLUC #### [facility] [address] [place] [address] Dr. Obdulia Ng CBC W MANUAL DIFFon 02-18-20 ATYPICAL LYMPH # Normal [facility] Comment on above: Performed By: #### C VDTBH #### [facility] [address] [place] [address] Dr. Obdulia Ng ATYPICAL LYMPH % Normal [facility] Comment on above: Performed By: #### C VDTBH #### [facility] [address] [place] [address] Dr. Obdulia Ng BAND # 0.0 103/ul Normal 0.0-0.3 [facility] Comment on above: Performed By: #### C VDTBH #### [facility] [address] [place] [address] Dr. Obdulia Ng BAND % 0 % Normal 0-5 [facility] Comment on above: Performed By: #### C VDTBH #### [facility] [address] [place] [address] Dr. Obdulia Ng BASOM # 0.00 103/ul Normal 0.00-0.10 [facility] Comment on above: Performed By: #### C VDTBH #### [facility] [address] [place] [address] Dr. Obdulia Ng BASOM % 0.0 % Critically low 0.2-2.0 [facility] Comment on above: Performed By: #### C VDTBH #### [facility] [address] [place] [address] Dr. Obdulia Ng BLAST # Normal [facility] Comment on above: Performed By: #### C VDTBH #### [facility] [address] [place] [address] Dr. Obdulia Ng BLAST % Normal [facility] Comment on above: Performed By: #### C VDTBH #### [facility] [address] [place] [address] Dr. Obdulia Ng CORRECTED WBC Normal 4.0-11.0 [facility] Comment on above: Performed By: #### C VDTBH #### [facility] [address] [place] [address] Dr. Obdulia Ng EOS # 0.00 103/ul Normal 0.00-0.70 [facility] Comment on above: Performed By: #### C VDTBH #### [facility] [address] [place] [address] Dr. Obdulia Ng EOS% 0.0 % Critically low 0.9-7.0 [facility] Comment on above: Performed By: #### C VDTBH #### [facility] [address] [place] [address] Dr. Obdulia Ng HCT 35.8 % Critically low 42.0-54.0 [facility] Comment on above: Performed By: #### C VDTBH #### [facility] [address] [place] [address] Dr. Obdulia Ng HGB 11.7 g/dl Critically low 14.0-18.0 [facility] Comment on above: Performed By: #### C VDTBH #### [facility] [address] [place] [address] Dr. Obdulia Ng LYMPHM # 0.50 103/ul Critically low 1.20-3.80 [facility] Comment on above: Performed By: #### C VDTBH #### [facility] [address] [place] [address] Dr. Obdulia Ng LYMPHM% 6.0 % Critically low 20.5-60.0 [facility] Comment on above: Performed By: #### C VDTBH #### [facility] [address] [place] [address] Dr. Obdulia Ng MCH 31.6 pg Normal 25.9-34.0 [facility] Comment on above: Performed By: #### C VDTBH #### [facility] [address] [place] [address] Dr. Obdulia Ng MCHC 32.7 g/dl Normal 29.9-35.2 [facility] Comment on above: Performed By: #### C VDTBH #### [facility] [address] [place] [address] Dr. Obdulia Ng MCV 96.8 fL Critically high 80.0-94.0 [facility] Comment on above: Performed By: #### C VDTBH #### [facility] [address] [place] [address] Dr. Obdulia Ng METAMYELOCYTE # 0.2 103/ul Normal [facility] Comment on above: Performed By: #### C VDTBH #### [facility] [address] [place] [address] Dr. Obdulia Ng METAMYELOCYTE % 3 % Normal [facility] Comment on above: Performed By: #### C VDTBH #### [facility] [address] [place] [address] Dr. Obdulia Ng MONOM# 0.00 103/ul Critically low 0.30-0.80 [facility] Comment on above: Performed By: #### C VDTBH #### [facility] [address] [place] [address] Dr. Obdulia Ng MONOM% 0.0 % Critically low 1.7-12.0 [facility] Comment on above: Performed By: #### C VDTBH #### [facility] [address] [place] [address] Dr. Obdulia Ng MPV 9.7 fL Normal 9.5-13.5 [facility] Comment on above: Performed By: #### C VDTBH #### [facility] [address] [place] [address] Dr. Obdulia Ng MYELOCYTE # Normal [facility] Comment on above: Performed By: #### C VDTBH #### [facility] [address] [place] [address] Dr. Obdulia Ng MYELOCYTE % Normal [facility] Comment on above: Performed By: #### C VDTBH #### [facility] [address] [place] [address] Dr. Obdulia Ng NRBC Normal [facility] Comment on above: Performed By: #### C VDTBH #### [facility] [address] [place] [address] Dr. Obdulia Ng PLT 218 103/ul Normal 150-450 [facility] Comment on above: Performed By: #### C VDTBH #### [facility] [address] [place] [address] Dr. Obdulia Ng RBC 3.70 106/ul Critically low 4.70-6.10 [facility] Comment on above: Performed By: #### C VDTBH #### [facility] [address] [place] [address] Dr. Obdulia Ng RDW 14.6 % Normal 11.0-15.0 [facility] Comment on above: Performed By: #### C VDTBH #### [facility] [address] [place] [address] Dr. Obdulia Ng SEG # 7.55 103/ul Critically high 1.40-6.50 [facility] Comment on above: Performed By: #### C VDTBH #### [facility] [address] [place] [address] Dr. Obdulia Ng SEG % 91.0 % Critically high 43.0-75.0 [facility] Comment on above: Performed By: #### C VDTBH #### [facility] [address] [place] [address] Dr. Obdulia Ng WBC 8.3 103/ul Normal 4.0-11.0 [facility] Comment on above: Performed By: #### C VDTBH #### [facility] [address] [address] [address] Obdulia Ng POINT OF CARE GLUCOSEon 01-22 Glucose [Mass/Vol] 133 mg/dL Critically high 74-106 [facility] Comment on above: Performed By: #### P OCGLUC #### [facility] [address] [address] [address] Obdulia Ng Glucose [Mass/Vol] 255 mg/dL Critically high 74-106 [facility] Comment on above: Performed By: #### T SH, T4 #### [facility] [address] [place] [address] Dr. Obdulia Ng Glucose [Mass/Vol] 229 mg/dL Critically high 74-106 [facility] Comment on above: Performed By: #### C BC #### [facility] [address] [place] [address] Dr. Obdulia Ng Glucose [Mass/Vol] 138 mg/dL Critically high 74-106 [facility] Comment on above: Performed By: #### P TT, PT #### [facility] [address] [place] [address] Dr. Obdulia Ng PROF CHEM 8 (BAS METB)on Anion gap [Moles/Vol] 11.3 mmol/L Normal [facility] Comment on above: Performed By: #### P OCGLUC #### [facility] [address] [place] [address] Dr. Obdulia Ng Calcium [Mass/Vol] 8.2 mg/dL Critically low 8.5-10.1 [facility] Comment on above: Performed By: #### P OCGLUC #### [facility] [address] [place] [address] Dr. Obdulia Ng Chloride [Moles/Vol] 104 mmol/L Normal 98-107 [facility] Comment on above: Performed By: #### P OCGLUC #### [facility] [address] [place] [address] Dr. Obdulia Ng CO2 [Moles/Vol] 27.7 mmol/L Normal 21.0-32.0 [facility] Comment on above: Performed By: #### P OCGLUC #### [facility] [address] [address] [address] Obdulia Ng Creatinine [Mass/Vol] 1.34 mg/dL Critically high 0.70-1.30 [facility] Comment on above: Performed By: #### P OCGLUC #### [facility] [address] [address] [address] Obdulia Ng EGFR-AF UKRAINIAN >60 Normal >=60 [facility] Comment on above: Performed By: #### P OCGLUC #### [facility] [address] [address] [address] Obdulia Ng EGFR-NON AF UKRAINIAN 51 mL/min/1.73m2 Critically low >=60 [facility] Comment on above: Performed By: #### P OCGLUC #### [facility] [address] [address] [address] Obdulia Ng Glucose [Mass/Vol] 160 mg/dL Critically high 74-106 T [facility] Comment on above: Performed By: #### P OCGLUC #### [facility] [address] [address] [address] Obdulia Ng Potassium [Moles/Vol] 4.0 mmol/L Normal 3.5-5.1 [facility] Comment on above: Performed By: #### P OCGLUC #### [facility] [address] [address] [address] Obdulia Ng Sodium [Moles/Vol] 139 mmol/L Normal 136-145 [facility] Comment on above: Performed By: #### P OCGLUC #### [facility] [address] [address] [address] Obdulia Ng Urea nitrogen [Mass/Vol] 24.0 mg/dL Critically high 7.0-18.0 [facility] Comment on above: Performed By: #### P OCGLUC #### [facility] [address] [address] [address] Obdulia Ng Urea nitrogen/Creatinine [Mass ratio] 17.9 mg/mg Normal [facility] Comment on above: Performed By: #### P OCGLUC #### [facility] [address] [place] [address] Dr. Obdulia Ng PROTIMEon 02-17-2022 INR Coag (PPP) [Relative time] 2.41 {INR} Normal [facility] Comment on above: Performed By: #### C VDTBH #### [facility] [address] [address] [address] Obdulia Ng INR GUIDELINES SEE BELOW Normal [facility] Comment on above: Result Comment: BRAD RED INR: 2.0 - 3.0 CONDITIONS NOT LISTED BELOW 2.5 - 3.5 FOR PROSTHETIC HEART VALVE REPLACEMENT 2.5 - 3.5 RECURRENT THROMBOSIS Performed By: #### C VDTBH #### [facility] [address] [place] [address] Dr. Obdulia Ng PT Coag (PPP) [Time] 24.6 s Critically high 9.0-11.6 [facility] Comment on above: Performed By: #### C VDTBH #### [facility] [address] [place] [address] Dr. Obdulia Ng XR CHEST 2 Von [...] to prior study. Electronically authenticated by: BROOKS STEPHENSON Date: 2022-02-17 07:01 Normal [facility] BNPon 02-16-2022 Natriuretic peptide B (Bld) [Mass/Vol] 28382.0 pg/mL Critically high <=1,800.0 [facility] Comment on above: Performed By: #### C BC #### [facility] [address] [place] [address] Dr. Obdulia Ng CBC AUTO DIFFon 02-16-2022 BASO # 0.1 103/ul Normal 0.0-0.1 [facility] Comment on above: Performed By: #### C VDTBH #### [facility] [address] [place] [address] Dr. Obdulia Ng Basophils/100 WBC (Bld) 0.4 % Normal 0.2-2.0 [facility] Comment on above: Performed By: #### C VDTBH #### [facility] [address] [place] [address] Dr. Obdulia Ng EO # 0.0 103/ul Normal 0.0-0.7 [facility] Comment on above: Performed By: #### C VDTBH #### [facility] [address] [place] [address] Dr. Obdulia Ng Eosinophils/100 WBC (Bld) 0.0 % Critically low 0.9-7.0 [facility] Comment on above: Performed By: #### C VDTBH #### [facility] [address] [place] [address] Dr. Obdulia Ng Erythrocyte distribution width (RBC) [Ratio] 14.6 % Normal 11.0-15.0 [facility] Comment on above: Performed By: #### C VDTBH #### [facility] [address] [place] [address] Dr. Obdulia Ng Hematocrit (Bld) [Volume fraction] 40.8 % Critically low 42.0-54.0 [facility] Comment on above: Performed By: #### C VDTBH #### [facility] [address] [place] [address] Dr. Obdulia Ng Hemoglobin (Bld) [Mass/Vol] 13.3 g/dL Critically low 14.0-18.0 [facility] Comment on above: Performed By: #### C VDTBH #### [facility] [address] [place] [address] Dr. Obdulia Ng IG # 0.05 10e3/ul Critically high 0.00-0.03 [facility] Comment on above: Performed By: #### C VDTBH #### [facility] [address] [place] [address] Dr. Obdulia Ng IG % 0.4 % Normal 0.0-0.5 [facility] Comment on above: Performed By: #### C VDTBH #### [facility] [address] [address] [address] Obdulia Ng LYMPH # 0.5 103/ul Critically low 1.2-3.8 [facility] Comment on above: Performed By: #### C VDTBH #### [facility] [address] [place] [address] Dr. Obdulia gN Lymphocytes/100 WBC (Bld) 3.7 % Critically low 20.5-60.0 [facility] Comment on above: Performed By: #### C VDTBH #### [facility] [address] [place] [address] Dr. Obdulia Ng MANUAL DIFF REQ NO Normal [facility] Comment on above: Performed By: #### C VDTBH #### [facility] [address] [place] [address] Dr. Obdulia Ng MCH (RBC) [Entitic mass] 31.7 pg Normal 25.9-34.0 [facility] Comment on above: Performed By: #### C VDTBH #### [facility] [address] [place] [address] Dr. Obdulia Ng MCHC (RBC) [Mass/Vol] 32.6 g/dL Normal 29.9-35.2 [facility] Comment on above: Performed By: #### C VDTBH #### [facility] [address] [place] [address] Dr. Obdulia Ng MCV (RBC) [Entitic vol] 97.1 fL Critically high 80.0-94.0 [facility] Comment on above: Performed By: #### C VDTBH #### [facility] [address] [place], [place] [id number] Dr. Obdulia Ng MONO # 1.0 103/ul Critically high 0.3-0.8 [facility] Comment on above: Performed By: #### C VDTBH #### [facility] [address] [place] [address] Dr. Obdulia Ng Monocytes/100 WBC (Bld) 7.7 % Normal 1.7-12.0 [facility] Comment on above: Performed By: #### C VDTBH #### [facility] [address] [place] [address] Dr. Obdulia Ng NEUT # 11.3 103/ul Critically high 1.4-6.5 The [facility] Comment on above: Performed By: #### C VDTBH #### [facility] [address] [place] [address] Dr. Obduila Ng Neutrophils/100 WBC (Bld) 87.8 % Critically high 43.0-75.0 [facility] Comment on above: Performed By: #### C VDTBH #### [facility] [address] [place] [address] Dr. Obdulia Ng Platelet mean volume (Bld) [Entitic vol] 10.2 fL Normal 9.5-13.5 [facility] Comment on above: Performed By: #### C VDTBH #### [facility] [address] [place] [address] Dr. Obdulia Ng PLT 262 103/ul Normal 150-450 [facility] Comment on above: Performed By: #### C VDTBH #### [facility] [address] [place] [address] Dr. Obdulia Ng RBC 4.20 106/ul Critically low 4.70-6.10 [facility] Comment on above: Performed By: #### C VDTBH #### [facility] [address] [place] [address] Dr. Obdulia Ng WBC 12.9 103/ul Critically high 4.0-11.0 [facility] Comment on above: Performed By: #### C VDTBH #### [facility] [address] [place] [address] Dr. Obdulia Ng CULTURE BLOODon 02-16-2022 Microscopic examination of blood, culture Culture Observations: NO GROWTH AT 5 DAYS. Normal [facility] Comment on above: Performed By: #### T SH, T4 #### [facility] [address] [place] [address] Dr. Obdulia Ng Microscopic examination of blood, culture Culture Observations: NO GROWTH AT 5 DAYS. Normal [facility] Comment on above: Performed By: #### T SH, T4 #### [facility] [address] [place] [address] Dr. Obdulia Ng CULTURE URINEon 02-16-2022 CULTURE URINE Culture Observations : NO GROWTH. Normal [facility] Comment on above: Performed By: #### T SH, T4 #### [facility] [address] [place] [address] Dr. Obdulia Ng Covid-19 PCR ([facility])on 01-22 SARS-CoV-2 (COVID-19) RNA SHELBY+probe Ql (Unsp spec) Detected Critically abnormal NOT DETECTED [facility] Comment on above: Result Comment: This test is not yet approved or cleared by the [place] FDA. When there are no FDA-approved or cleared tests available, and other criteria are met, FDA can make tests available under an emergency access mechanism called an Emergency Use Authorization (EUA). The EUA for this test is supported by the [place] of Health and Human Service's declaration that [...] used). Performed By: #### C BC #### [facility] [address] [place] [address] Dr. Obdulia Ng ER URINE PROFILEon 2 Bilirubin Ql (U) Negative Normal NEGATIVE [facility] Comment on above: Performed By: #### P OCGLUC #### [facility] [address] [place] [address] Dr. Obdulia Ng Clarity (U) SL CLOUDY Abnormal CLEAR [facility] Comment on above: Performed By: #### P OCGLUC #### [facility] [address] [address] [address] Obdulia ROMERO A micrscopic examina tion will be performed if indicated. Normal [facility] Comment on above: Performed By: #### P OCGLUC #### [facility] [address] [address] [address] Obdulia Ng Glucose Ql (U) Negative Normal NEGATIVE [facility] Comment on above: Performed By: #### P OCGLUC #### [facility] [address] [address] [address] Obdulia Ng Hemoglobin Ql (U) Negative Normal NEGATIVE [facility] Comment on above: Performed By: #### P OCGLUC #### [facility] [address] [place] [address] Dr. Obdulia Ng Ketones Ql (U) Negative Normal NEGATIVE [facility] Comment on above: Performed By: #### P OCGLUC #### [facility] [address] [address] [address] Obdulia Ng LEUKOCYTES TRACE Abnormal NEGATIVE [facility] Comment on above: Performed By: #### P OCGLUC #### [facility] [address] [address] [address] Obdulia Ng Nitrite Ql (U) Negative Normal NEGATIVE [facility] Comment on above: Performed By: #### P OCGLUC #### [facility] [address] [address] [address] Obdulia Ng pH (U) 5.5 [pH] Normal 5-9 [facility] Comment on above: Performed By: #### P OCGLUC #### [facility] [address] [address] [address] Obdulia Ng SPEC GRAVITY 1.015 Normal 1.005-<=1. 025 [facility] Comment on above: Performed By: #### P OCGLUC #### [facility] [address] [place] [address] Dr. Obdulia Ng UA PROTEIN Negative Normal NEGATIVE/ TRACE [facility] Comment on above: Performed By: #### P OCGLUC #### [facility] [address] [place] [address] Dr. Obdulia Ng UR MICRO IND INDICATED Normal [facility] Comment on above: Performed By: #### P OCGLUC #### [facility] [address] [place] [address] Dr. Obdulia Ng Urobilinogen Qn (U) 1.0 {Cachorro'U}/dL Normal 0.2 - 1. 0 [facility] Comment on above: Performed By: #### P OCGLUC #### [facility] [address] [place] [address] Dr. Obdulia Ng LACTATE/LACTIC ACIDon 2021 Lactate [Moles/Vol] 1.7 mmol/L Normal 0.4-1.9 [facility] Comment on above: Performed By: #### P OCGLUC #### [facility] [address] [place] [address] Dr. Obdulia Ng Lactate [Moles/Vol] 2.7 mmol/L Critically high 0.4-1.9 [facility] Comment on above: Performed By: #### C BC #### [facility] [address] [place] [address] Dr. Obdulia Ng PH VENOUS BLOODon 02-16-2022 PCO2 VENOUS 40.5 mmHg Normal 40.0-52.0 [facility] Comment on above: Performed By: #### P TT, PT #### [facility] [address] [place] [address] Dr. Obdulia Ng pH VENOUS 7.368 Normal 7.330-7.43 0 [facility] Comment on above: Performed By: #### P TT, PT #### [facility] [address] [place] [address] Dr. Obdulia Ng POINT OF CARE GLUCOSEon 01-22 Glucose [Mass/Vol] 290 mg/dL Critically high 74-106 T [facility] Comment on above: Performed By: #### C BC #### [facility] [address] [address] [address] Obdulia Ng PROF 14(COMP METB)on 022 Albumin [Mass/Vol] 3.5 g/dL Normal 3.4-5.0 [facility] Comment on above: Performed By: #### C BC #### [facility] [address] [place] [address] Dr. Obdulia Ng Albumin/Globulin [Mass ratio] 1.2 {ratio} Normal [facility] Comment on above: Performed By: #### C BC #### [facility] [address] [place] [address] Dr. Obdulia Ng ALP [Catalytic activity/Vol] 78 U/L Normal 46-116 [facility] Comment on above: Performed By: #### C BC #### [facility] [address] [place] [address] Dr. Obdulia Ng ALT [Catalytic activity/Vol] 48 U/L Normal 16-63 [facility] Comment on above: Performed By: #### C BC #### [facility] [address] [place] [address] Dr. Obdulia Ng Anion gap [Moles/Vol] 15.4 mmol/L Normal [facility] Comment on above: Performed By: #### C BC #### [facility] [address] [place] [address] Dr. Obdulia Ng AST [Catalytic activity/Vol] 24 U/L Normal 15-37 [facility] Comment on above: Performed By: #### C BC #### [facility] [address] [place] [address] Dr. Obdulia Ng Bilirubin [Mass/Vol] 1.6 mg/dL Critically high 0.2-1.0 [facility] Comment on above: Performed By: #### C BC #### [facility] [address] [place] [address] Dr. Obdulia Ng Calcium [Mass/Vol] 8.7 mg/dL Normal 8.5-10.1 [facility] Comment on above: Performed By: #### C BC #### [facility] [address] [place] [address] Dr. Obdulia Ng Chloride [Moles/Vol] 103 mmol/L Normal 98-107 [facility] Comment on above: Performed By: #### C BC #### [facility] [address] [address] [address] Obdulia Ng CO2 [Moles/Vol] 22.9 mmol/L Normal 21.0-32.0 [facility] Comment on above: Performed By: #### C BC #### [facility] [address] [address] [address] Obdulia Ng Creatinine [Mass/Vol] 1.34 mg/dL Critically high 0.70-1.30 [facility] Comment on above: Performed By: #### C BC #### [facility] [address] [place] [address] Dr. Obdulia Ng EGFR-AF UKRAINIAN >60 Normal >=60 [facility] Comment on above: Performed By: #### C BC #### [facility] [address] [place] [address] Dr. Obdulia Ng EGFR-NON AF UKRAINIAN 51 mL/min/1.73m2 Critically low >=60 [facility] Comment on above: Performed By: #### C BC #### [facility] [address] [place] [address] Dr. Obdulia Ng Globulin (S) [Mass/Vol] 2.9 g/dL Normal [facility] Comment on above: Performed By: #### C BC #### [facility] [address] [place] [address] Dr. Obdulia Ng Glucose [Mass/Vol] 181 mg/dL Critically high 74-106 [facility] Comment on above: Performed By: #### C BC #### [facility] [address] [place] [address] Dr. Obdulia Ng Potassium [Moles/Vol] 4.3 mmol/L Normal 3.5-5.1 [facility] Comment on above: Performed By: #### C BC #### [facility] [address] [place] [address] Dr. Obdulia Ng Protein [Mass/Vol] 6.4 g/dL Normal 6.4-8.2 [facility] Comment on above: Performed By: #### C BC #### [facility] [address] [place] [address] Dr. Obdulia Ng Sodium [Moles/Vol] 137 mmol/L Normal 136-145 [facility] Comment on above: Performed By: #### C BC #### [facility] [address] [place] [address] Dr. Obdulia Ng Urea nitrogen [Mass/Vol] 23.0 mg/dL Critically high 7.0-18.0 [facility] Comment on above: Performed By: #### C BC #### [facility] [address] [place] [address] Dr. Obdulia Ng Urea nitrogen/Creatinine [Mass ratio] 17.2 mg/mg Normal [facility] Comment on above: Performed By: #### C BC #### [facility] [address] [place] [address] Dr. Obdulia Ng PROTIMEon 02-16-2022 INR Coag (PPP) [Relative time] 2.40 {INR} Normal [facility] Comment on above: Performed By: #### P OCGLUC #### [facility] [address] [place] [address] Dr. Obdulia Ng INR GUIDELINES SEE BELOW Normal [facility] Comment on above: Result Comment: BRAD RED INR: 2.0 - 3.0 CONDITIONS NOT LISTED BELOW 2.5 - 3.5 FOR PROSTHETIC HEART VALVE REPLACEMENT 2.5 - 3.5 RECURRENT THROMBOSIS Performed By: #### P OCGLUC #### [facility] [address] [place] [address] Dr. Obdulia Ng PT Coag (PPP) [Time] 24.5 s Critically high 9.0-11.6 [facility] Comment on above: Performed By: #### P OCGLUC #### [facility] [address] [place] [address] Dr. Obdulia Ng PTTon 02-16-2022 aPTT Coag (Bld) [Time] 31.4 s Normal 22.3-36.2 [facility] Comment on above: Performed By: #### P OCGLUC #### [facility] [address] [place] [address] Dr. Obdulia Ng TROPONIN, HIGH SENSITIVITYon 02-16-2022 HSTROP 18.2 pg/mL Normal 4.0-76.1 [facility] Comment on above: Result Comment: CUT- OFF POINTS HAVE BEEN ESTABLISHED BASED ON THE FOURTH UNIVERSAL DEFINITIONS OF MYOCARDIAL INFARCTION. THE UPPER REFERENCE LIMIT (URL) OF TROPONIN, DEFINED THE 99TH PERCENTILE OF cTnI DISTRIBUTION IN A REFERENCE POPULATION, HAS BEEN CONFIRMED THE DECISION THRESHOLD FOR [place] DIAGNOSIS. Performed By: #### C BC #### [facility] [address] [place] [address] Dr. Obdulia Ng URINE MICROSCOPIC ONLYon BACTERIA TRACE Abnormal NONE SEEN [facility] Comment on above: Performed By: #### P OCGLUC #### [facility] [address] [place] [address] Dr. Obdulia Ng Bacteria identified Cx Nom (U) INDICATED Normal [facility] Comment on above: Performed By: #### P OCGLUC #### [facility] [address] [place] [address] Dr. Obdulia Ng CAST NONE SEEN Normal NONE SEEN [facility] Comment on above: Performed By: #### P OCGLUC #### [facility] [address] [place] [address] Dr. Obdulia Ng Crystals LM Nom (Urine sed) NONE SEEN Normal NONE SEEN [facility] Comment on above: Performed By: #### P OCGLUC #### [facility] [address] [place] [address] Dr. Obdulia Ng Epithelial cells LM Ql (Urine sed) FEW Abnormal NONE SEEN /RARE [facility] Comment on above: Performed By: #### P OCGLUC #### [facility] [address] [place] [address] Dr. Obdulia Ng MUCOUS NONE SEEN Normal NONE SEEN [facility] Comment on above: Performed By: #### P OCGLUC #### [facility] [address] [place] [address] Dr. Obdulia Ng RBC NONE SEEN Abnormal 0-2 [facility] Comment on above: Performed By: #### P OCGLUC #### [facility] [address] [address] [address] Obdulia Ng WBC 2-5 Abnormal NONE SEEN [facility] Comment on above: Performed By: #### P OCGLUC #### [facility] [address] [address] [address] Obdulia Ng XR CHEST 1 Von [...] by: CHEPE ROLLINS Date: 2022-02-16 15:14 Normal [facility] Abstracton 01-30-2022 Abstract [id number] Joby Bergman 1940 Date Provider Department [place] 01/30/2022 Kaitlyn8-HUGO CORCORAN [facility] Family History Problem Relation Age of Onset Heart attack Father Family Status - Relation Status Age at Father Normal [facility] BNPon 12-24-2021 Natriuretic peptide B (Bld) [Mass/Vol] 8490.0 pg/mL Critically high <=1,800.0 [facility] Comment on above: Performed By: #### C BC #### [facility] [address] [place] [address] Dr. Obdulia Ng CBC AUTO DIFFon 12-24-2021 BASO # 0.1 103/ul Normal 0.0-0.1 [facility] Comment on above: Performed By: #### C BC #### [facility] [address] [place] [address] Dr. Obdulia Ng Basophils/100 WBC (Bld) 0.7 % Normal 0.2-2.0 [facility] Comment on above: Performed By: #### C BC #### [facility] [address] [place] [address] Dr. Obdulia Ng EO # 0.1 103/ul Normal 0.0-0.7 [facility] Comment on above: Performed By: #### C BC #### [facility] [address] [place] [address] Dr. Obdulia Ng Eosinophils/100 WBC (Bld) 0.8 % Critically low 0.9-7.0 [facility] Comment on above: Performed By: #### C BC #### [facility] [address] [place] [address] Dr. Obdulia Ng Erythrocyte distribution width (RBC) [Ratio] 13.2 % Normal 11.0-15.0 [facility] Comment on above: Performed By: #### C BC #### [facility] [address] [place] [address] Dr. Obdulia Ng Hematocrit (Bld) [Volume fraction] 38.7 % Critically low 42.0-54.0 [facility] Comment on above: Performed By: #### C BC #### [facility] [address] [place] [address] Dr. Obdulia Ng Hemoglobin (Bld) [Mass/Vol] 12.6 g/dL Critically low 14.0-18.0 [facility] Comment on above: Performed By: #### C BC #### [facility] [address] [place] [address] Dr. Obdulia Ng IG # 0.03 10e3/ul Normal 0.00-0.03 [facility] Comment on above: Performed By: #### C BC #### [facility] [address] [place] [address] Dr. Obdulia Ng IG % 0.3 % Normal 0.0-0.5 [facility] Comment on above: Performed By: #### C BC #### [facility] [address] [place] [address] Dr. Obdulia Ng LYMPH # 1.7 103/ul Normal 1.2-3.8 [facility] Comment on above: Performed By: #### C BC #### [facility] [address] [place] [address] Dr. Obdulia Ng Lymphocytes/100 WBC (Bld) 18.9 % Critically low 20.5-60.0 [facility] Comment on above: Performed By: #### C BC #### [facility] [address] [place] [address] Dr. Obdulia Ng MANUAL DIFF REQ NO Normal [facility] Comment on above: Performed By: #### C BC #### [facility] [address] [place] [address] Dr. Obdulia Ng MCH (RBC) [Entitic mass] 31.3 pg Normal 25.9-34.0 [facility] Comment on above: Performed By: #### C BC #### [facility] [address] [place] [address] Dr. Odbulia Ng MCHC (RBC) [Mass/Vol] 32.6 g/dL Normal 29.9-35.2 [facility] Comment on above: Performed By: #### C BC #### [facility] [address] [place] [address] Dr. Obdulia Ng MCV (RBC) [Entitic vol] 96.0 fL Critically high 80.0-94.0 [facility] Comment on above: Performed By: #### C BC #### [facility] [address] [place] [address] Dr. Obdulia Ng MONO # 0.8 103/ul Normal 0.3-0.8 [facility] Comment on above: Performed By: #### C BC #### [facility] [address] [place] [address] Dr. Obdulia Ng Monocytes/100 WBC (Bld) 9.0 % Normal 1.7-12.0 [facility] Comment on above: Performed By: #### C BC #### [facility] [address] [place] [address] Dr. Obdulia Ng NEUT # 6.1 103/ul Normal 1.4-6.5 [facility] Comment on above: Performed By: #### C BC #### [facility] [address] [address] [address] Obdulia Ng Neutrophils/100 WBC (Bld) 70.3 % Normal 43.0-75.0 [facility] Comment on above: Performed By: #### C BC #### [facility] [address] [address] [address] Obdulia Ng Platelet mean volume (Bld) [Entitic vol] 9.5 fL Normal 9.5-13.5 [facility] Comment on above: Performed By: #### C BC #### [facility] [address] [place] [address] Dr. Obdulia Ng PLT 307 103/ul Normal 150-450 [facility] Comment on above: Performed By: #### C BC #### [facility] [address] [place] [address] Dr. Obdulia Ng RBC 4.03 106/ul Critically low 4.70-6.10 [facility] Comment on above: Performed By: #### C BC #### [facility] [address] [address] [address] Obdulia Ng WBC 8.7 103/ul Normal 4.0-11.0 [facility] Comment on above: Performed By: #### C BC #### [facility] [address] [place] [address] Dr. Obdulia Ng PROF 14(COMP METB)on 022 Albumin [Mass/Vol] 3.3 g/dL Critically low 3.4-5.0 [facility] Comment on above: Performed By: #### C BC #### [facility] [address] [place] [address] Dr. Obdulia Ng Albumin/Globulin [Mass ratio] 1.1 {ratio} Normal [facility] Comment on above: Performed By: #### C BC #### [facility] [address] [address] [address] Obdulia Ng ALP [Catalytic activity/Vol] 74 U/L Normal 46-116 [facility] Comment on above: Performed By: #### C BC #### [facility] [address] [address] [address] Obdulia Ng ALT [Catalytic activity/Vol] 51 U/L Normal 16-63 [facility] Comment on above: Performed By: #### C BC #### [facility] [address] [address] [address] Obdulia Ng Anion gap [Moles/Vol] 12.8 mmol/L Normal [facility] Comment on above: Performed By: #### C BC #### [facility] [address] [address] [address] Obdulia Ng AST [Catalytic activity/Vol] 24 U/L Normal 15-37 [facility] Comment on above: Performed By: #### C BC #### [facility] [address] [place] [address] Dr. Obdulia Ng Bilirubin [Mass/Vol] 1.1 mg/dL Critically high 0.2-1.0 [facility] Comment on above: Performed By: #### C BC #### [facility] [address] [address] [address] Obdulia Ng Calcium [Mass/Vol] 8.7 mg/dL Normal 8.5-10.1 [facility] Comment on above: Performed By: #### C BC #### [facility] [address] [place] [address] Dr. Obdulia Ng Chloride [Moles/Vol] 103 mmol/L Normal 98-107 [facility] Comment on above: Performed By: #### C BC #### [facility] [address] [address] [address] Obdulia Ng CO2 [Moles/Vol] 29.8 mmol/L Normal 21.0-32.0 [facility] Comment on above: Performed By: #### C BC #### [facility] [address] [address] [address] Obdulia Ng Creatinine [Mass/Vol] 1.22 mg/dL Normal 0.70-1.30 [facility] Comment on above: Performed By: #### C BC #### [facility] [address] [address] [address] Obdulia Ng EGFR-AF UKRAINIAN >60 Normal >=60 [facility] Comment on above: Performed By: #### C BC #### [facility] [address] [address] [address] Obdulia Ng EGFR-NON AF UKRAINIAN 57 mL/min/1.73m2 Critically low >=60 [facility] Comment on above: Performed By: #### C BC #### [facility] [address] [address] [address] Obdulia Ng Globulin (S) [Mass/Vol] 3.1 g/dL Normal [facility] Comment on above: Performed By: #### C BC #### [facility] [address] [address] [address] Obdulia Ng Glucose [Mass/Vol] 104 mg/dL Normal 74-106 [facility] Comment on above: Performed By: #### C BC #### [facility] [address] [address] [address] Obdulia Ng Potassium [Moles/Vol] 3.6 mmol/L Normal 3.5-5.1 [facility] Comment on above: Performed By: #### C BC #### [facility] [address] [address] [address] Obdulia Ng Protein [Mass/Vol] 6.4 g/dL Normal 6.4-8.2 [facility] Comment on above: Performed By: #### C BC #### [facility] [address] [address] [address] Obdulia Ng Sodium [Moles/Vol] 142 mmol/L Normal 136-145 [facility] Comment on above: Performed By: #### C BC #### [facility] [address] [address] [address] Obdulia Ng Urea nitrogen [Mass/Vol] 20.0 mg/dL Critically high 7.0-18.0 [facility] Comment on above: Performed By: #### C BC #### [facility] [address] [place] [address] Dr. Obdulia Ng Urea nitrogen/Creatinine [Mass ratio] 16.4 mg/mg Normal [facility] Comment on above: Performed By: #### C BC #### [facility] [address] [place] [address] Dr. Obdulia Ng T3, TOTAL (TRIIODOTHYRONINE) on 12-24-2021 T3, TOTAL 94 ng/dL Normal 71-180 [facility] Comment on above: Performed By: #### P TT, PT #### [facility] [address] [place] [address] Dr. Obdulia Ng BNPon 2021 Natriuretic peptide B (Bld) [Mass/Vol] 6998.0 pg/mL Critically high <=1,800.0 [facility] Comment on above: Performed By: #### P OCGLUC #### [facility] [address] [place] [address] Dr. Obdulia Ng CARDIAC MARIPOSA 3-6on 2 CK [Catalytic activity/Vol] 86 U/L Normal 39-308 [facility] Comment on above: Performed By: #### P TT, PT #### [facility] [address] [place] [address] Dr. Obdulia Ng CK.MB [Mass/Vol] 2.13 ng/mL Normal <=3.60 [facility] Comment on above: Performed By: #### P TT, PT #### [facility] [address] [place] [address] Dr. Obdulia Ng HSTROP 14.4 pg/mL Normal 4.0-76.1 [facility] Comment on above: Result Comment: CUT- OFF POINTS HAVE BEEN ESTABLISHED BASED ON THE FOURTH UNIVERSAL DEFINITIONS OF MYOCARDIAL INFARCTION. THE UPPER REFERENCE LIMIT (URL) OF TROPONIN, DEFINED THE 99TH PERCENTILE OF cTnI DISTRIBUTION IN A REFERENCE POPULATION, HAS BEEN CONFIRMED THE DECISION THRESHOLD FOR [place] DIAGNOSIS. Performed By: #### P TT, PT #### [facility] [address] [place] [address] Dr. Obdulia Ng CK [Catalytic activity/Vol] 84 U/L Normal 39-308 [facility] Comment on above: Performed By: #### P OCGLUC #### [facility] [address] [place] [address] Dr. Obdulia Ng CK.MB [Mass/Vol] 2.16 ng/mL Normal <=3.60 [facility] Comment on above: Performed By: #### P OCGLUC #### [facility] [address] [place] [address] Dr. Obdulia Ng HSTROP 15.8 pg/mL Normal 4.0-76.1 [facility] Comment on above: Result Comment: CUT- OFF POINTS HAVE BEEN ESTABLISHED BASED ON THE FOURTH UNIVERSAL DEFINITIONS OF MYOCARDIAL INFARCTION. THE UPPER REFERENCE LIMIT (URL) OF TROPONIN, DEFINED THE 99TH PERCENTILE OF cTnI DISTRIBUTION IN A REFERENCE POPULATION, HAS BEEN CONFIRMED THE DECISION THRESHOLD FOR MN DIAGNOSIS. Performed By: #### P OCGLUC #### [facility] [address] [place] [address] Dr. Obdulia Ng CBC AUTO DIFFon 2021 BASO # 0.0 103/ul Normal 0.0-0.1 [facility] Comment on above: Performed By: #### C BC #### [facility] [address] [place] [address] Dr. Obdulia Ng Basophils/100 WBC (Bld) 0.4 % Normal 0.2-2.0 [facility] Comment on above: Performed By: #### C BC #### [facility] [address] [place] [address] Dr. Obdulia Ng EO # 0.0 103/ul Normal 0.0-0.7 [facility] Comment on above: Performed By: #### C BC #### [facility] [address] [place] [address] Dr. Obdulia Ng Eosinophils/100 WBC (Bld) 0.2 % Critically low 0.9-7.0 [facility] Comment on above: Performed By: #### C BC #### [facility] [address] [place] [address] Dr. Obdulia Ng Erythrocyte distribution width (RBC) [Ratio] 13.2 % Normal 11.0-15.0 [facility] Comment on above: Performed By: #### C BC #### [facility] [address] [address] [address] Obdulia Ng Hematocrit (Bld) [Volume fraction] 35.1 % Critically low 42.0-54.0 [facility] Comment on above: Performed By: #### C BC #### [facility] [address] [address] [address] Obdulia Ng Hemoglobin (Bld) [Mass/Vol] 11.6 g/dL Critically low 14.0-18.0 [facility] Comment on above: Performed By: #### C BC #### [facility] [address] [address] [address] Obdulia Ng IG # 0.04 10e3/ul Critically high 0.00-0.03 [facility] Comment on above: Performed By: #### C BC #### [facility] [address] [address] [address] Obdulia Ng IG % 0.4 % Normal 0.0-0.5 [facility] Comment on above: Performed By: #### C BC #### [facility] [address] [address] [address] Obdulia Ng LYMPH # 0.7 103/ul Critically low 1.2-3.8 [facility] Comment on above: Performed By: #### C BC #### [facility] [address] [address] [address] Obdulia Ng Lymphocytes/100 WBC (Bld) 6.9 % Critically low 20.5-60.0 [facility] Comment on above: Performed By: #### C BC #### [facility] [address] [address] [address] Obdulia Ng MANUAL DIFF REQ NO Normal [facility] Comment on above: Performed By: #### C BC #### [facility] [address] [address] [address] Obdulia Ng MCH (RBC) [Entitic mass] 31.6 pg Normal 25.9-34.0 [facility] Comment on above: Performed By: #### C BC #### [facility] [address] [address] [address] Obdulia Ng MCHC (RBC) [Mass/Vol] 33.0 g/dL Normal 29.9-35.2 [facility] Comment on above: Performed By: #### C BC #### [facility] [address] [address] [address] Obdulia Ng MCV (RBC) [Entitic vol] 95.6 fL Critically high 80.0-94.0 [facility] Comment on above: Performed By: #### C BC #### [facility] [address] [address] [address] Obdulia Ng MONO # 0.6 103/ul Normal 0.3-0.8 [facility] Comment on above: Performed By: #### C BC #### [facility] [address] [place] [address] Dr. Obdulia Ng Monocytes/100 WBC (Bld) 5.7 % Normal 1.7-12.0 [facility] Comment on above: Performed By: #### C BC #### [facility] [address] [address] [address] Obdulia Ng NEUT # 8.8 103/ul Critically high 1.4-6.5 [facility] Comment on above: Performed By: #### C BC #### [facility] [address] [place] [address] Dr. Obdulia Ng Neutrophils/100 WBC (Bld) 86.4 % Critically high 43.0-75.0 [facility] Comment on above: Performed By: #### C BC #### [facility] [address] [address] [address] Obdulia Ng Platelet mean volume (Bld) [Entitic vol] 9.2 fL Critically low 9.5-13.5 [facility] Comment on above: Performed By: #### C BC #### [facility] [address] [place] [address] Dr. Obdulia Ng PLT 268 103/ul Normal 150-450 [facility] Comment on above: Performed By: #### C BC #### [facility] [address] [address] [address] Obdulia Ng RBC 3.67 106/ul Critically low 4.70-6.10 [facility] Comment on above: Performed By: #### C BC #### [facility] [address] [address] [address] Obdulia Ng WBC 10.2 103/ul Normal 4.0-11.0 [facility] Comment on above: Performed By: #### C BC #### [facility] [address] [address] [address] Obdulia Ng CULTURE URINEon 2021 CULTURE URINE Culture Observations : NO GROWTH. Normal [facility] Comment on above: Performed By: #### T SH, T4 #### [facility] [address] [place] [address] Dr. Obdulia Ng Covid-19 PCR (CVDTBH)on SARS-CoV-2 (COVID-19) RNA SHELBY+probe Ql (Unsp spec) Not detected Normal NOT DETECTED [facility] Comment on above: Result Comment: [...] for this test is supported by the [place] of Health and Human Service's declaration that [...] used). Performed By: #### P OCGLUC #### [facility] [address] [address] [address] Obdulia Ng ECHOCARDIO M/2D COMPLETEon 2021 ECHOCARDIO M/2D COMPLETE Patient: ELVIRA BERGMAN Exam Date: 2021 : 1940 Gender:M Ordering : DR BRIDGET FARLEY . Admission #: [id number] Family : Order #: [id number] CLICK HERE TO VIEW EXAM ECHOCARDIOGRAM REPORT [...] pressures. RVSP 66 mmHg. Dictated by: Mabel Sánchez M.D. on 2021 at 17:27 Approved by: Mabel Sánchez M.D. on 2021 at 17:33 Normal [facility] POINT OF CARE GLUCOSEon 08-0 Glucose [Mass/Vol] 116 mg/dL Critically high 74-106 [facility] Comment on above: Performed By: #### C BC #### [facility] [address] [address] [address] Obdulia Ng Glucose [Mass/Vol] 233 mg/dL Critically high 74-106 [facility] Comment on above: Performed By: #### P OCGLUC #### [facility] [address] [address] [address] Obdulia Ng PROF CHEM 8 (BAS METB)on Anion gap [Moles/Vol] 14.5 mmol/L Normal [facility] Comment on above: Performed By: #### P OCGLUC #### [facility] [address] [address] [address] Obdulia Ng Calcium [Mass/Vol] 8.5 mg/dL Normal 8.5-10.1 [facility] Comment on above: Performed By: #### P OCGLUC #### [facility] [address] [address] [address] Obdulia Ng Chloride [Moles/Vol] 105 mmol/L Normal 98-107 [facility] Comment on above: Performed By: #### P OCGLUC #### [facility] [address] [address] [address] Obdulia Ng CO2 [Moles/Vol] 23.8 mmol/L Normal 21.0-32.0 [facility] Comment on above: Performed By: #### P OCGLUC #### [facility] [address] [address] [address] Obdulia Ng Creatinine [Mass/Vol] 1.08 mg/dL Normal 0.70-1.30 [facility] Comment on above: Performed By: #### P OCGLUC #### [facility] [address] [address] [address] Obdulia Ng EGFR-AF UKRAINIAN >60 Normal >=60 [facility] Comment on above: Performed By: #### P OCGLUC #### [facility] [address] [address] [address] Obdulia Ng EGFR-NON AF UKRAINIAN >60 Normal >=60 [facility] Comment on above: Performed By: #### P OCGLUC #### [facility] [address] [address] [address] Obdulia Ng Glucose [Mass/Vol] 172 mg/dL Critically high 74-106 [facility] Comment on above: Performed By: #### P OCGLUC #### [facility] [address] [address] [address] Obdulia Ng Potassium [Moles/Vol] 4.3 mmol/L Normal 3.5-5.1 [facility] Comment on above: Performed By: #### P OCGLUC #### [facility] [address] [address] [address] Obdulia Ng Sodium [Moles/Vol] 139 mmol/L Normal 136-145 [facility] Comment on above: Performed By: #### P OCGLUC #### [facility] [address] [address] [address] Obdulia Ng Urea nitrogen [Mass/Vol] 17.0 mg/dL Normal 7.0-18.0 [facility] Comment on above: Performed By: #### P OCGLUC #### [facility] [address] [address] [address] Obdulia Ng Urea nitrogen/Creatinine [Mass ratio] 15.7 mg/mg Normal [facility] Comment on above: Performed By: #### P OCGLUC #### [facility] [address] [address] [address] Obdulia Ng T4on 2021 T4 [Mass/Vol] 7.50 ug/dL Normal 4.50-12.10 [facility] Comment on above: Performed By: #### T SH, T4 #### [facility] [address] [address] [address] Obdulia Ng TROPONIN, HIGH SENSITIVITYon 2021 HSTROP 15.3 pg/mL Normal 4.0-76.1 [facility] Comment on above: Result Comment: CUT- OFF POINTS HAVE BEEN ESTABLISHED BASED ON THE FOURTH UNIVERSAL DEFINITIONS OF MYOCARDIAL INFARCTION. THE UPPER REFERENCE LIMIT (URL) OF TROPONIN, DEFINED THE 99TH PERCENTILE OF cTnI DISTRIBUTION IN A REFERENCE POPULATION, HAS BEEN CONFIRMED THE DECISION THRESHOLD FOR [place] DIAGNOSIS. Performed By: #### P OCGLUC #### [facility] [address] [place] [address] Dr. Obdulia Ng TSHon 2021 TSH 0.904 uIU/mL Normal 0.358-3.74 0 [facility] Comment on above: Performed By: #### T SH, T4 #### [facility] [address] [place] [address] Dr. Obdulia Ng UA RANDOM W/MICROSCOPICon BACTERIA NONE SEEN Normal NONE SEEN [facility] Comment on above: Performed By: #### T SH, T4 #### [facility] [address] [place] [address] Dr. Obdulia Ng Bilirubin Ql (U) Negative Normal NEGATIVE [facility] Comment on above: Performed By: #### T SH, T4 #### [facility] [address] [place] [address] Dr. Obdulia Ng CAST NONE SEEN Normal NONE SEEN [facility] Comment on above: Performed By: #### T SH, T4 #### [facility] [address] [place] [address] Dr. Obdulia Ng Clarity (U) CLEAR Normal CLEAR [facility] Comment on above: Performed By: #### T SH, T4 #### [facility] [address] [place] [address] Dr. Obdulia Ng Color (U) LT. YELLOW Normal YELLOW [facility] Comment on above: Performed By: #### T SH, T4 #### [facility] [address] [place] [address] Dr. Obdulia Ng Crystals LM Nom (Urine sed) NONE SEEN Normal NONE SEEN [facility] Comment on above: Performed By: #### T SH, T4 #### [facility] [address] [place] [address] Dr. Obdulia Ng Epithelial cells LM Ql (Urine sed) NONE SEEN Normal NONE SEEN /RARE [facility] Comment on above: Performed By: #### T SH, T4 #### [facility] [address] [place] [address] Dr. Obdulia Ng Glucose Ql (U) Negative Normal NEGATIVE [facility] Comment on above: Performed By: #### T SH, T4 #### [facility] [address] [place] [address] Dr. Obdulia Ng Hemoglobin Ql (U) Negative Normal NEGATIVE [facility] Comment on above: Performed By: #### T SH, T4 #### [facility] [address] [place] [address] Dr. Obdulia Ng Ketones Ql (U) Negative Normal NEGATIVE [facility] Comment on above: Performed By: #### T SH, T4 #### [facility] [address] [place] [address] Dr. Obdulia Ng LEUKOCYTES Negative Normal NEGATIVE [facility] Comment on above: Performed By: #### T SH, T4 #### [facility] [address] [place] [address] Dr. Obdulia Ng MUCOUS NONE SEEN Normal NONE SEEN [facility] Comment on above: Performed By: #### T SH, T4 #### [facility] [address] [place] [address] Dr. Obdulia Ng Nitrite Ql (U) Negative Normal NEGATIVE [facility] Comment on above: Performed By: #### T SH, T4 #### [facility] [address] [place] [address] Dr. Obdulia Ng pH (U) 6.0 [pH] Normal 5-9 [facility] Comment on above: Performed By: #### T SH, T4 #### [facility] [address] [place] [address] Dr. Obdulia Ng RBC NONE SEEN Abnormal 0-2 [facility] Comment on above: Performed By: #### T SH, T4 #### [facility] [address] [place] [address] Dr. Obdulia Ng SPEC GRAVITY 1.010 Normal 1.005-<=1. 025 [facility] Comment on above: Performed By: #### T SH, T4 #### [facility] [address] [place] [address] Dr. Obdulia Ng UA PROTEIN Negative Normal NEGATIVE/ TRACE [facility] Comment on above: Performed By: #### T SH, T4 #### [facility] [address] [address] [address] Obdulia Ng Urobilinogen Qn (U) 1.0 {Cachorro'U}/dL Normal 0.2 - 1. 0 [facility] Comment on above: Performed By: #### T SH, T4 #### [facility] [address] [address] [address] Obdulia Ng WBC NONE SEEN Normal NONE SEEN [facility] Comment on above: Performed By: #### T SH, T4 #### [facility] [address] [address] [address] Obdulia Ng XR CHEST 1 Von [...] BROOKS STEPHENSON Date: 2021 11:26 Normal [facility] CBC AUTO DIFFon 11-17-2021 BASO # 0.0 103/ul Normal 0.0-0.1 [facility] Comment on above: Performed By: #### P OCGLUC #### [facility] [address] [place] [address] Dr. Obdulia Ng Basophils/100 WBC (Bld) 0.3 % Normal 0.2-2.0 [facility] Comment on above: Performed By: #### P OCGLUC #### [facility] [address] [address] [address] Obdulia Ng EO # 0.0 103/ul Normal 0.0-0.7 [facility] Comment on above: Performed By: #### P OCGLUC #### [facility] [address] [address] [address] Obdulia Ng Eosinophils/100 WBC (Bld) 0.1 % Critically low 0.9-7.0 [facility] Comment on above: Performed By: #### P OCGLUC #### [facility] [address] [place] [address] Dr. Obdulia Ng Erythrocyte distribution width (RBC) [Ratio] 12.9 % Normal 11.0-15.0 [facility] Comment on above: Performed By: #### P OCGLUC #### [facility] [address] [place] [address] Dr. Obdulia Ng Hematocrit (Bld) [Volume fraction] 38.4 % Critically low 42.0-54.0 [place] [facility] Comment on above: Performed By: #### P OCGLUC #### [facility] [address] [place] [address] Dr. Obdulia Ng Hemoglobin (Bld) [Mass/Vol] 12.7 g/dL Critically low 14.0-18.0 [facility] Comment on above: Performed By: #### P OCGLUC #### [facility] [address] [place] [address] Dr. Obdulia Ng IG # 0.03 10e3/ul Normal 0.00-0.03 [facility] Comment on above: Performed By: #### P OCGLUC #### [facility] [address] [place] [address] Dr. Obdulia Ng IG % 0.3 % Normal 0.0-0.5 [facility] Comment on above: Performed By: #### P OCGLUC #### [facility] [address] [place] [address] Dr. Obdulia Ng LYMPH # 0.8 103/ul Critically low 1.2-3.8 [facility] Comment on above: Performed By: #### P OCGLUC #### [facility] [address] [place] [address] Dr. Obdulia Ng Lymphocytes/100 WBC (Bld) 7.2 % Critically low 20.5-60.0 [facility] Comment on above: Performed By: #### P OCGLUC #### [facility] [address] [address] [address] Obdulia Ng MANUAL DIFF REQ NO Normal [facility] Comment on above: Performed By: #### P OCGLUC #### [facility] [address] [place] [address] Dr. Obdulia Ng MCH (RBC) [Entitic mass] 32.2 pg Normal 25.9-34.0 [facility] Comment on above: Performed By: #### P OCGLUC #### [facility] [address] [place] [address] Dr. Obdulia Ng MCHC (RBC) [Mass/Vol] 33.1 g/dL Normal 29.9-35.2 [facility] Comment on above: Performed By: #### P OCGLUC #### [facility] [address] [place] [address] Dr. Obdulia Ng MCV (RBC) [Entitic vol] 97.5 fL Critically high 80.0-94.0 [facility] Comment on above: Performed By: #### P OCGLUC #### [facility] [address] [place] [address] Dr. Obdulia Ng MONO # 1.0 103/ul Critically high 0.3-0.8 [facility] Comment on above: Performed By: #### P OCGLUC #### [facility] [address] [place] [address] Dr. Obdulia Ng Monocytes/100 WBC (Bld) 9.9 % Normal 1.7-12.0 [facility] Comment on above: Performed By: #### P OCGLUC #### [facility] [address] [place] [address] Dr. Obdulia Ng NEUT # 8.6 103/ul Critically high 1.4-6.5 [facility] Comment on above: Performed By: #### P OCGLUC #### [facility] [address] [place] [address] Dr. Obdulia Ng Neutrophils/100 WBC (Bld) 82.2 % Critically high 43.0-75.0 [facility] Comment on above: Performed By: #### P OCGLUC #### [facility] [address] [place] [address] Dr. Obdulia Ng Platelet mean volume (Bld) [Entitic vol] 10.3 fL Normal 9.5-13.5 [facility] Comment on above: Performed By: #### P OCGLUC #### [facility] [address] [place] [address] Dr. Obdulia Ng PLT 202 103/ul Normal 150-450 [facility] Comment on above: Performed By: #### P OCGLUC #### [facility] [address] [place] [address] Dr. Obdulia Ng RBC 3.94 106/ul Critically low 4.70-6.10 [facility] Comment on above: Performed By: #### P OCGLUC #### [facility] [address] [place] [address] Dr. Obdulia Ng WBC 10.4 103/ul Normal 4.0-11.0 [facility] Comment on above: Performed By: #### P OCGLUC #### [facility] [address] [place] [address] Dr. Obdulia Ng PROF CHEM 8 (BAS METB)on Anion gap [Moles/Vol] 12.9 mmol/L Normal [facility] Comment on above: Performed By: #### T SH, T4 #### [facility] [address] [place] [address] Dr. Obdulia Ng Calcium [Mass/Vol] 8.6 mg/dL Normal 8.5-10.1 [facility] Comment on above: Performed By: #### T SH, T4 #### [facility] [address] [place] [address] Dr. Obdulia Ng Chloride [Moles/Vol] 102 mmol/L Normal 98-107 [facility] Comment on above: Performed By: #### T SH, T4 #### [facility] [address] [place] [address] Dr. Obdulia Ng CO2 [Moles/Vol] 25.8 mmol/L Normal 21.0-32.0 [facility] Comment on above: Performed By: #### T SH, T4 #### [facility] [address] [place] [address] Dr. Obdulia Ng Creatinine [Mass/Vol] 1.03 mg/dL Normal 0.70-1.30 [facility] Comment on above: Performed By: #### T SH, T4 #### [facility] [address] [address] [address] Obdulia Ng EGFR-AF UKRAINIAN >60 Normal >=60 [facility] Comment on above: Performed By: #### T SH, T4 #### [facility] [address] [place] [address] Dr. Obdulia Ng EGFR-NON AF UKRAINIAN >60 Normal >=60 [facility] Comment on above: Performed By: #### T SH, T4 #### [facility] [address] [place] [address] Dr. Obdulia Ng Glucose [Mass/Vol] 164 mg/dL Critically high 74-106 [facility] Comment on above: Performed By: #### T SH, T4 #### [facility] [address] [address] [address] Obdulia Ng Potassium [Moles/Vol] 3.7 mmol/L Normal 3.5-5.1 [facility] Comment on above: Performed By: #### T SH, T4 #### [facility] [address] [place] [address] Dr. Obdulia Ng Sodium [Moles/Vol] 137 mmol/L Normal 136-145 [facility] Comment on above: Performed By: #### T SH, T4 #### [facility] [address] [address] [address] Obdulia Ng Urea nitrogen [Mass/Vol] 15.0 mg/dL Normal 7.0-18.0 [facility] Comment on above: Performed By: #### T SH, T4 #### [facility] [address] [address] [address] Obdulia Ng Urea nitrogen/Creatinine [Mass ratio] 14.6 mg/mg Normal [facility] Comment on above: Performed By: #### T SH, T4 #### [facility] [address] [address] [address] Obdulia Ng TROPONIN, HIGH SENSITIVITYon 11-17-2021 HSTROP 16.2 pg/mL Normal 4.0-76.1 [facility] Comment on above: Result Comment: CUT- OFF POINTS HAVE BEEN ESTABLISHED BASED ON THE FOURTH UNIVERSAL DEFINITIONS OF MYOCARDIAL INFARCTION. THE UPPER REFERENCE LIMIT (URL) OF TROPONIN, DEFINED THE 99TH PERCENTILE OF cTnI DISTRIBUTION IN A REFERENCE POPULATION, HAS BEEN CONFIRMED THE DECISION THRESHOLD FOR MN DIAGNOSIS. Performed By: #### T SH, T4 #### [facility] [address] [address] [address] Obdulia Ng XR CHEST 1 Von [...] MONTES DE OCA Date: 2021-11-17 09:11 Normal [facility] Discharge Summaryon 02-16-20 Discharge Summary MR[id number] B[facility]gan Admitted: 02/11/2017 Discharged: 02/12/2017 Date of : 1940 Physician: Marisol Stahl M.D. DISCHARGE SUMMARYPRIMARY DISCHARGE DIAGNOSIS: Acute coronary syndrome (status post PCI toLAD).SECONDARY DISCHARGE DIAGNOSES:1. Coronary artery disease, status post PCI to LAD and RCA in 2004.2. Peripheral vascular disease.3. (right common iliac artery occluded).4. Diabetes mellitus type 2.5. Hypertension.CONSULTS: None.PROCEDURES:1. Left heart catheterization/PCI.2. Echo (EF 25%).HOSPITAL COURSE: The patient was brought to the ED on 22nd with a historyof chest pain and new changes in his EKG concerning for acute ST-elevationMI. He was flown in from [facility] for emergency cath. His LADwas [...] daily.NEW MEDICATIONS: None.STOP MEDICATIONS: None.Electronically Signed by:Marisol Stahl M.D. 03/01/2017 03:50 P Marisol Stahl M.D. I personally saw this patient on the day of the encounter, performed thekey portion(s) of the service and participated in the management andconfirm the resident's documentation. Please note there may be anadditional personal documentation from me. Date Dict: 02/14/2017/03:49 P/Xin Hernandez Trans: 02/14/2017 10:56 P/Jimy_JN:[id number] c: Bridget Farley M.D. [id number] [facility] Rickey Leo [facility] [address] Normal [facility] BNP (B-TYPE NATRIURETIC PEPT LEANDER)on 02-12-2017 BNP 211 pg/mL High 0-100 [facility] Comment on above: Order Comment: No: D o not add to previous draw Result Comment: Give n the appropriate clinical setting a BNP result of >100 pg/mLindicates congestive heart failure. Performed By: #### 8 5123, [address]327 ####[facility] CBC W/DIFFon 02-12-2017 Basophils Auto #/vol (Bld) 1.2 % Normal 0.0-2.0 [facility] Comment on above: Order Comment: No: D o not add to previous draw Performed By: #### 5 0103 ####[facility] Eosinophils/100 leukocytes 0.3 % Normal 0.0-5.0 [facility] Comment on above: Order Comment: No: D o not add to previous draw Performed By: #### 5 0103 ####[facility] Erythrocyte distribution width Auto Ratio (RBC) 12.9 % Normal 11.5-16.9 [facility] Comment on above: Order Comment: No: D o not add to previous draw Performed By: #### 5 0103 ####[facility]3000 [facility].[address] Erythrocytes (RBC) 3.94 mill/mm3 Low 4.30-5.90 [facility] Comment on above: Order Comment: No: D o not add to previous draw Performed By: #### 5 0103 ####[facility]3000 [facility].[address] Hematocrit (HCT) 37.7 % Low 39.0-55.0 [facility] Comment on above: Order Comment: No: D o not add to previous draw Performed By: #### 5 0103 ####[facility]3000 [facility].[address] Hemoglobin mass conc (Bld) 12.9 g/dL Low 13.9-16.3 [facility] Comment on above: Order Comment: No: D o not add to previous draw Performed By: #### 5 0103 ####[facility] [place] [address], [facility] Lymphocytes/100 leukocytes 15.3 % Low 20.0-40.0 [facility] Comment on above: Order Comment: No: D o not add to previous draw Performed By: #### 5 0103 ####[facility] [place] [address], [facility] MCH 32.6 pg High 24.0-32.0 [facility] Comment on above: Order Comment: No: D o not add to previous draw Performed By: #### 5 0103 ####[facility] [place] [address], [facility] MCHC mass conc (RBC) 34.1 g/dL Normal 32.0-36.0 [facility] Comment on above: Order Comment: No: D o not add to previous draw Performed By: #### 5 0103 ####[facility] [place] [address], [facility] MCV 95.7 fL Normal 80.0-100.0 [facility] Comment on above: Order Comment: No: D o not add to previous draw Performed By: #### 5 0103 ####[facility] [place] [address], [facility] METHOD Normal RBC Morphology Normal [facility] Comment on above: Order Comment: No: D o not add to previous draw Performed By: #### 5 0103 ####[facility] [place] [address], [facility] MONOS 12.2 % High 2-8 [facility] Comment on above: Order Comment: No: D o not add to previous draw Performed By: #### 5 0103 ####[facility] [id number], [facility] Neutrophils/100 leukocytes 71.0 % High 50-70 [facility] Comment on above: Order Comment: No: D o not add to previous draw Performed By: #### 5 0103 ####[facility] [place] [address], [facility] PLAT CNT 276 Thou/mm3 Normal 100-400 [facility] Comment on above: Order Comment: No: D o not add to previous draw Performed By: #### 5 0103 ####[facility] [place] [address], [facility] WBC (Leukocytes) 9.6 Thou/mm3 Normal 4.0-10.0 [facility] Comment on above: Order Comment: No: D o not add to previous draw Performed By: #### 5 0103 ####[facility] [place] [address], [facility] COMP METABOLIC PANELon 02-12 Alanine aminotransferase (ALT) 11 U/L Normal 7-52 [facility] Comment on above: Order Comment: No: D o not add to previous draw Performed By: #### 4 1000, 00802, 48051, 51436, 43869, 03655 ####[facility] [place] [address], [facility] Albumin 3.2 g/dL Low 3.5-5.7 [facility] Comment on above: Order Comment: No: D o not add to previous draw Performed By: #### 4 1000, 37241, 82955, 01912, 78184, 47775 ####[facility] [place] [address], [facility] ALKALINE PHOSPH 49 IU/L Normal 34-104 [facility] Comment on above: Order Comment: No: D o not add to previous draw Performed By: #### 4 1000, 64373, 66823, 23476, 23102, 64351 ####[facility] [place] [address], [facility] Aspartate aminotransferase (AST) 9 U/L Low 13-39 [facility] Comment on above: Order Comment: No: D o not add to previous draw Performed By: #### 4 1000, 33146, 38130, 91126, 97339, 27058 ####[facility] [place] [address], [facility] Bilirubin (total) 0.6 mg/dL Normal 0.3-1.0 [facility] Comment on above: Order Comment: No: D o not add to previous draw Performed By: #### 4 1000, 07858, 32563, 06555, 70159, 87081 ####[facility] [place] [address], [facility] Calcium 8.5 mg/dL Low 8.6-10.3 [facility] Comment on above: Order Comment: No: D o not add to previous draw Performed By: #### 4 1000, 62845, 75041, 91582, 64890, 84546 ####[facility] [place] [address], [place] Chloride 106 mmol/L Normal 98-107 [facility] Comment on above: Order Comment: No: D o not add to previous draw Performed By: #### 4 1000, 25981, 78003, 27815, 11009, 80496 ####[facility] [place] [address], [place] CO2 24 mmol/L Normal 21-31 [facility] Comment on above: Order Comment: No: D o not add to previous draw Performed By: #### 4 1000, 67612, 18147, 33703, 67255, 41418 ####[facility] [place] [address], [place] Creatinine 0.98 mg/dL Normal 0.70-1.30 [facility] Comment on above: Order Comment: No: D o not add to previous draw Performed By: #### 4 1000, 66851, 10473, 52557, 81392, 81935 ####[facility] [place] [address], [facility] eGFR (black) mL/min/{1.73_m2} Normal >60 [facility] Comment on above: Order Comment: No: D o not add to previous draw Result Comment: Calc ulation may not be valid for patients over 70 years Performed By: #### 4 1000, 33299, 38639, 47175, 52197, 47044 ####[facility] [place] [address], [facility] eGFR (non-black) mL/min/{1.73_m2} Normal >60 [facility] Comment on above: Order Comment: No: D o not add to previous draw Result Comment: Calc ulation may not be valid for patients over 70 years Performed By: #### 4 1000, 92574, 99180, 54372, 58461, 81084 ####[facility] [place] [address], [facility] Glucose mass conc 180 mg/dL High 70-100 [facility] Comment on above: Order Comment: No: D o not add to previous draw Performed By: #### 4 1000, 00128, 23306, 74278, 64930, 62844 ####[facility]3000 [facility] [place] [address], [facility] Potassium molar conc 4.2 mmol/L Normal 3.5-5.1 [facility] Comment on above: Order Comment: No: D o not add to previous draw Performed By: #### 4 1000, 23870, 51471, 97776, 33847, 08391 ####[facility] [facility] [place] [place] [address], [facility] Protein 5.9 g/dL Low 6.0-8.3 [facility] Comment on above: Order Comment: No: D o not add to previous draw Performed By: #### 4 1000, 34662, 01831, 06257, 30244, 12697 ####[facility] Sodium 135 mmol/L Low 136-145 [facility] Comment on above: Order Comment: No: D o not add to previous draw Performed By: #### 4 1000, 13400, 74945, 60050, 10882, 38467 ####[facility]3000 [facility].[address] Urea nitrogen 20 mg/dL Normal 7-25 [facility] Comment on above: Order Comment: No: D o not add to previous draw Performed By: #### 4 1000, 56716, 37270, 57399, 45041, 76889 ####[facility]3000 [facility].[address] CPKon 02-12-2017 Creatine kinase (CK) 44 U/L Normal 30-223 [facility] Comment on above: Order Comment: No: D o not add to previous draw Performed By: #### 4 1000, 52390, 54610, 73943, 47775, 24962 ####[facility]3000 [facility].[address] Cardiovascular Lab Reporton 02-12-2017 Cardiovascular Lab Report [facility] Patient Name: Elvira Bergman [facility] MR #: [id number] Physician: Marie Iraheta,Department of M.D.Medicine Service Date: 02/11/2017Division of Birthdate: 2Cardiology Room #: 3AB [id number]ovascularServicesUn[facility] [place] [address]Phone Fax Cardiovascular Laboratory ReportIMPRESSION:1. Successful balloon angioplasty, reduction of 80% in-stent restenosis to 0 using a 3.5 x 12 Synergy stent.2. Occluded right common iliac artery.3. Patent stent in right coronary artery with mild in-stent restenosis.INDICATION:Yvan Bergman is a 76-year-old male, [facility]. [facility] showed [...] This was discussed with patient and referring house wirer.METHODS:After risks, benefits, and alternatives were explained to the patient, hewas brought to catheterization lab suite in a fasting state. Access wasobtained. Initially we tried to obtain in the right common femoral artery,however, it was a very feeble pulse and this access was abandoned. At thispoint of time, we accessed the right radial artery and a 6-Bruneian sheathwas placed in. After that, the wire [...] time, this guide was taken outand a 6-Bruneian JL-4 guide was used to engage the [...] this point of time, we used a 6-Bruneian JR-5 toengage the right coronary ostium. This [...] noticed in the previous angiogram performed in 2013. This haziness is best visualized in an LU cranial view. It is eccentric with 80% [...] around 30 mm in length.Electronically Signed by:Marie Iraheta M.D. 02/23/2017 11:49 A Marie Iraheta M.D.Date Dict: 02/11/2017/02:36 P/Marie Iraheta M.D.Date Trans: 02/12/2017 02:21 A/Jimy_JN:[id number] c: Bridget Farley M.D. [address] [place] [address] Saw Nath M.D. [address] [place] [address] Normal [facility] HEMOGLOBIN A1Con 02-12-2017 Glucose mass conc 143 mg/dL High 70-126 [facility] Comment on above: Order Comment: No: D o not add to previous draw Performed By: #### 8 5499 ####[place] [address] [address] Hemoglobin A1c/Hemoglobin.total mass fraction (Bld) 6.6 % High 4.0-6.0 [facility] Comment on above: Order Comment: No: D o not add to previous draw Performed By: #### 8 5499 ####[facility] LIPID PROFILEon 02-12-2017 Cholesterol 107 mg/dL Low 120-200 [facility] Comment on above: Order Comment: No: D o not add to previous draw Result Comment: CHOL ESTEROL REFERENCE RANGE:20 YEARS AND OLDER CARDIOVASCULAR RISKLess than 200 mg/dl Low Yemu218 to 239 mg/dl Borderline Chfm292 mg/dl and greater High Risk Performed By: #### 4 1000, 93827, 58408, 25363, 66830, 96957 ####[facility]3000 [facility].[address] Cholesterol to HDL Ratio 3.7 {ratio} Normal .0-4.5 [facility] Comment on above: Order Comment: No: D o not add to previous draw Performed By: #### 4 1000, 19672, 10932, 43564, 88873, 89447 ####[facility]3000 [facility].[address] HDL Cholesterol 29 mg/dL Normal 23-92 [facility] Comment on above: Order Comment: No: D o not add to previous draw Result Comment: Slig ht variation in normal range could be due to gender and/or age.HDL CHOLESTEROL REFERENCE RANGE:20 years and older Cardiovascular Risk> or =60 mg/dL Skxlekqsq20 TO 59 mg/dL Low Risk<40 mg/dL High Risk Performed By: #### 4 1000, 49866, 70001, 05201, 54470, 94680 ####[facility]3000 [facility].[address] LDL Cholesterol 63 mg/dL Normal 0-130 [facility] Comment on above: Order Comment: No: D o not add to previous draw Result Comment: LDL IS A CALCULATIONLDL IS ONLY VALID IF THE TRIG IS LESS THAN 400. Performed By: #### 4 1000, 84943, 65548, 47625, 00853, 17618 ####[facility]3000 [facility] [place] [address], [facility] NON-HDL CHOLESTEROL 78 mg/dL Normal [facility] Comment on above: Order Comment: No: D o not add to previous draw Performed By: #### 4 1000, 15088, 86880, 53539, 08387, 76701 ####[facility] Triglyceride 75 mg/dL Normal 40-149 [facility] Comment on above: Order Comment: No: D o not add to previous draw Result Comment: TRIG LYCERIDE REFERENCE RANGE:20 YEARS AND OLDER CARDIOVASCULAR RISKLESS THAN 150 mg/dl LOW [id number] TO 199 mg/dl BORDERLINE [id number] mg/dl AND GREATER HIGH RISK Performed By: #### 4 1000, 46200, 51092, 64488, 33515, 48316 ####[facility] [place] [address], [facility] VLDL CHOL 15 mg/dL Normal 0-40 [facility] Comment on above: Order Comment: No: D o not add to previous draw Performed By: #### 4 1000, 28364, 92925, 73408, 61914, 27565 ####[facility] [place] [address], [facility] MAGNESIUM BLOODon 02-12-2017 Magnesium 1.7 mg/dL Low 1.9-2.7 [facility] Comment on above: Order Comment: No: D o not add to previous draw Performed By: #### 4 1000, 39916, 00543, 81343, 29542, 86518 ####[facility] [place] [address], [facility] PHOSPHORUS BLOODon 7 Phosphate 3.7 mg/dL Normal 2.5-5.0 [facility] Comment on above: Order Comment: No: D o not add to previous draw Performed By: #### 4 1000, 85055, 31968, 08882, 12291, 16075 ####[facility] [place] [address], [facility] POC GLUCOSE LABon 02-12-2017 Glucose mass conc 297 mg/dL High 70-100 [facility] Comment on above: Performed By: #### 8 5499 ####[facility] Glucose mass conc 184 mg/dL High 70-100 [facility] Comment on above: Performed By: #### 8 5499 ####[facility] PORTABLE CHEST 1 VIEWon 01-22 PORTABLE CHEST 1 VIEW [facility] Cmelwtqul[address] [place] [address] Rosetta ent Name: ELVIRA BERGMAN : 1940ex: MAge: Race: WhiteMRN: [id number]. Location: [id number] Status: IVisit #: [id number] Date: 02/12/2017 6:55:00 AMCompleted Date: 02/12/2017 07:59 AMRequesting Provider: MARIA LUISA COATES Attending Provider: MABEL SÁNCHEZ V Report Copy To: Signs & Symptoms: Chest PainHistory: Patient history not availableComments: R/O CardiomegalyExam: PORTABLE CHEST 1 VIEWAccession #: [id number] ===PORTABLE CHEST 1 VIEW 02/12/2017 7:59 AM EDT [...] findings. Electronically signed by:Shalini Garcia. Transcribed by: [email or web address], User Resident: APOLONIA BOSTONElectronically Signed by: SHALINI GARCIA @ 02/12/2017 04:06 PMI personally read this/these film(s) with this resident Normal [facility] Comment on above: Order Comment: R/O C ardiomegaly TROPONIN-Ion 02-12-2017 Troponin I.cardiac mass conc 0.06 ng/mL High 0.00-0.04 [facility] Comment on above: Result Comment: REFE RENCE RANGES: 0.00 - 0.04 ng/ml NORMAL 0.05 - 0.50 ng/ml INDETERMINATE > 0.50 ng/ml CONSISTENT WITH AN M.I. Performed By: #### 4 [id number], [id number], [id number], [id number], [id number] ####[facility] [place] [address], [facility] POC GLUCOSE LABon 02-11-2017 Glucose mass conc 224 mg/dL High 70-100 [facility] Comment on above: Performed By: #### 8 [id number] ####[facility] [place] [address], [place] Glucose mass conc 158 mg/dL High 70-100 [facility] Comment on above: Performed By: #### 8 [id number] ####[facility] [facility] [place] [address], [facility] Vital Signs Date Time Vital Sign Value Performing Clinician Facility 07-16-2024 09:41-0500 Body height 182.9 cm Pacc 1 Work Phone: [facility] 07-16-2024 09:41-0500 Body mass index (BMI) [Ratio] 24.52 kg/m2 Pacc 1 Work Phone: [facility] 07-16-2024 09:41-0500 Body temperature 97.59 [degF] Pacc 1 Work Phone: [facility] 07-16-2024 09:41-0500 Body weight 82 kg Pacc 1 Work Phone: [facility] 07-16-2024 09:41-0500 Diastolic blood pressure 64 mm[Hg] Pacc 1 Work Phone: [facility] 07-16-2024 09:41-0500 Heart rate 67 /min Pacc 1 Work Phone: [facility] 07-16-2024 09:41-0500 Respiratory rate 18 /min Pacc 1 Work Phone: [facility] 07-16-2024 09:41-0500 SaO2% (BldA) [Mass fraction] 98 % Pacc 1 Work Phone: [facility] 07-16-2024 09:41-0500 Systolic blood pressure 115 mm[Hg] Pacc 1 Work Phone: [facility] 03-14-2024 07:09-0400 Body height 182.9 cm Pacc 1 Work Phone: [facility] 03-14-2024 07:09-0400 Body mass index (BMI) [Ratio] 24.52 kg/m2 Pacc 1 Work Phone: [facility] 03-14-2024 07:09-0400 Body temperature 97.5 [degF] Pacc 1 Work Phone: [facility] 03-14-2024 07:09-0400 Body weight 82 kg Pacc 1 Work Phone: [facility] 03-14-2024 07:09-0400 Diastolic blood pressure 58 mm[Hg] Pacc 1 Work Phone: [facility] 03-14-2024 07:09-0400 Heart rate 64 /min Pacc 1 Work Phone: [facility] 03-14-2024 07:09-0400 Respiratory rate 16 /min Pacc 1 Work Phone: [facility] 03-14-2024 07:09-0400 SaO2% (BldA) [Mass fraction] 98 % Pacc 1 Work Phone: [facility] 03-14-2024 07:09-0400 Systolic blood pressure 93 mm[Hg] Pacc 1 Work Phone: [facility] 07-12-2023 08:30-0500 Diastolic blood pressure 67 mm[Hg] DO Jasiel Franks Work Phone: [facility] 07-12-2023 08:30-0500 Heart rate 67 /min DO Jasiel Franks Work Phone: [facility] 07-12-2023 08:30-0500 Respiratory rate 16 /min DO Jasiel Franks Work Phone: [facility] 07-12-2023 08:30-0500 Systolic blood pressure 138 mm[Hg] DO Jasiel Franks Work Phone: [facility] 07-12-2023 06:31-0500 SaO2% (BldA) [Mass fraction] 97 % DO Jasiel Franks Work Phone: [facility] 07-12-2023 04:55-0500 Body temperature 98 [degF] DO Jasiel Franks Work Phone: [facility] 07-11-2023 16:46-0500 Body height 185.42 cm DO Jasiel Franks Work Phone: [facility] 07-11-2023 16:46-0500 Body weight 88.9 kg DO Jasiel Franks Work Phone: [facility] Encounters Encounter Date Encounter Type Care Provider Facility Start: 07-25-2024 End: 07-25-2024 Patient encounter procedure Arash Post MD Work Phone: Ophthalmology Comment on above: 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) (Primary Dx) Start: 07-25-2024 End: 07-25-2024 [facility] Facility:[facility] Start: 07-18-2024 End: 07-18-2024 [facility] Comment on above: Results Start: 07-16-2024 End: 07-16-2024 Patient encounter procedure Eye Measurements Work Phone: Ophthalmology Comment on above: 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 Start: 07-16-2024 Encounter for other preprocedural examination RAMIN SPRAGUE [facility] Start: 07-16-2024 End: 07-16-2024 Admission to establishment [facility] Work Phone: Pre Anesthesia Start: 07-16-2024 End: 07-16-2024 [facility] Facility:[facility] Start: 07-16-2024 End: 07-16-2024 Anesthesia consultation [facility] 1 Work Phone: Pre Anesthesia Comment on above: Pre-op examination ( Primary Dx); Abnormal finding of blood chemistry, unspecified; Benign prostatic hyperplasia without urinary obstruction; Type 2 diabetes mellitus without complication, unspecified whether emt intermediate insulin use (HCC); Persistent atrial fibrillation (HCC); Atherosclerosis of coronary artery without angina pectoris, unspecified vessel or lesion type, unspecified whether chickaloon or transplanted heart; Essential hypertension; Pure hypercholesterolemia; Chronic systolic heart failure (HCC) Start: 07-16-2024 End: 07-16-2024 Preprocedural examination done [facility] 1 Work Phone: [facility] Work Phone: Start: 06-28-2024 End: 06-28-2024 ambulatory NEY CISSE Facility:[facility] Start: 06-28-2024 End: 06-28-2024 Patient encounter procedure Ramin Sprague MD Work Phone: Ophthalmology Comment on above: 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 (Primary Dx); Regular astigmatism of both eyes; Pseudophakia, right eye; Exudative age-related macular degeneration of left eye with active choroidal neovascularization (HCC); Nonexudative age-related macular degeneration, right eye, intermediate dry stage; Dermatochalasis of both upper eyelids; Strabismus Start: 06-20-2024 End: 06-20-2024 ambulatory ARASH POST Facility:[facility] Start: 06-20-2024 End: 06-20-2024 Patient encounter procedure Arash Post MD Work Phone: Ophthalmology Comment on above: 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) Start: 05-03-2024 End: 05-04-2024 Telephone encounter Ramin Sprague MD Work Phone: Ophthalmology Comment on above: Medication Problem Refill Request Start: 04-25-2024 End: 04-25-2024 ambulatory ARASH POST Facility:[facility] Start: 04-25-2024 End: 04-25-2024 Patient encounter procedure Arash Post MD Work Phone: Ophthalmology Comment on above: 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) Start: 04-12-2024 End: 04-12-2024 ambulatory RAMIN SPRAGUE Facility:[facility] Start: 04-12-2024 End: 04-12-2024 Patient encounter procedure Ramin Sprague MD Work Phone: Ophthalmology Comment on above: Pseudophakia, right eye (Primary Dx); Combined form of age-related cataract, left eye Start: 04-11-2024 End: 04-11-2024 ambulatory RAMIN SPRAGUE Facility:[facility] Start: 03-14-2024 End: 03-14-2024 Patient encounter procedure Arash Post MD Work Phone: Ophthalmology Comment on above: 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) (Primary Dx) Nuclear senile catar act of right eye Start: 03-14-2024 End: 03-14-2024 Admission to [facility] Work Phone: Pre Anesthesia Start: 03-14-2024 End: 03-14-2024 ambulatory ARASH POST Facility:[facility] Start: 03-14-2024 End: 03-14-2024 Anesthesia consultation [facility] Work Phone: Pre Anesthesia Comment on above: Pre-op evaluation (P rimary Dx); Benign prostatic hyperplasia without urinary obstruction; Type 2 diabetes mellitus without complication, unspecified whether emt intermediate insulin use (HCC); Pure hypercholesterolemia; Essential hypertension; Persistent atrial fibrillation (HCC); Atherosclerosis of coronary artery without angina pectoris, unspecified vessel or lesion type, unspecified whether chickaloon or transplanted heart Start: 03-14-2024 Encounter for other preprocedural examination RAMIN SPRAGUE [facility] Start: 03-14-2024 End: 03-14-2024 Preprocedural examination done [facility] Work Phone: [facility] Work Phone: Start: 03-02-2024 End: 03-04-2024 ambulatory LISSETH KENNEY [facility] Start: 02-23-2024 End: 02-23-2024 ambulatory RAMIN SPRAGUE Facility:[facility] Start: 02-23-2024 End: 02-23-2024 Patient encounter procedure Ramin Sprague MD Work Phone: Ophthalmology Comment on above: Nuclear senile catar act of right eye (Primary Dx); Nuclear senile cataract of left eye; Regular astigmatism of both eyes; Exudative age-related macular degeneration of left eye with active choroidal neovascularization (HCC); Nonexudative age-related macular degeneration, right eye, intermediate dry stage; Dermatochalasis of both upper eyelids Start: 02-15-2024 End: 02-15-2024 ambulatory ARASH POST Facility:[facility] Start: 02-15-2024 End: 02-15-2024 Patient encounter procedure Arash Post MD Work Phone: Ophthalmology Comment on above: 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) (Primary Dx) Start: 01-30-2024 End: 02-01-2024 Subsequent hospital visit by physician Hailey Jimenez [facility] Comment on above: Traumatic closed fra cture of C2 vertebra with minimal displacement, initial encounter ([facility]) Start: 10-19-2023 End: 10-21-2023 ambulatory LISSETH KENNEY [facility] Start: 09-06-2023 End: 09-08-2023 ambulatory ELLIOT GARRIDO [facility] Start: 09-05-2023 End: 09-07-2023 ambulatory RELL ARRIAGA [facility] Start: 07-19-2023 End: 07-29-2023 Evaluation and management of inpatient PRERNA FISHER [facility] Start: 07-12-2023 End: 07-19-2023 Evaluation and management of inpatient ALISON Zendejas KRISTAIVY [facility] Start: 07-11-2023 End: 07-12-2023 Emergency department patient visit Jasiel Franks Facility:[facility] Start: 07-11-2023 End: 07-12-2023 Emergency department patient visit DO Jasiel Franks Work Phone: [facility] Work Phone: Start: 09-20-2022 End: 10-20-2022 ambulatory MORALEZ H FAMIREYAD Facility:[facility] Start: 09-08-2022 End: 09-09-[address] BRIDGET FARLEY . Facility:[facility] Start: 09-07-2022 End: 09-07-2022 ambulatory COLTON DOWLING . Facility:[facility] Start: 08-23-2022 End: 09-17-2022 ambulatory MORALEZ H FAWWAD Facility:[facility] Start: 07-21-2022 End: 08-20-2022 ambulatory MORALEZ H JOEL Facility:[facility] Start: 07-06-2022 End: 07-07-[address] BRIDGET FARLEY . Facility:[facility] Start: 06-23-2022 End: 07-21-2022 ambulatory MORALEZ H FAWWAD Facility:[facility] Start: 05-24-2022 End: 06-23-2022 ambulatory MORALEZ H FAWWAD Facility:[facility] Start: 04-22-2022 End: 05-23-2022 ambulatory MORALEZ H FAWWAD Facility:[facility] Start: 04-19-2022 End: 04-21-[address] BRIDGET FARLEY . Facility:[facility] Start: 04-03-2022 End: 04-03-[address] BRIDGET FARLEY . Facility:[facility] Start: 03-23-2022 End: 04-21-2022 ambulatory SHAIKH Kirt MALDONADO Facility:[facility] Start: 03-12-2022 End: 03-12-[address] [facility] Start: 02-22-2022 End: 03-22-2022 ambulatory SHAIKH Kirt MALDONADO Facility:[facility] Start: 02-19-[address] [facility] Start: 02-18-2022 End: 02-18-2022 Evaluation and management of inpatient SHAIKH Kirt MALDONADO Facility:[facility] Start: 02-02-2022 End: 02-20-2022 ambulatory SHAIKH Kirt MALDONADO Facility:[facility] Start: 2021 End: 12-24-[address] BRIDGET FARLEY . Facility:[facility] Start: 11-17-2021 End: 11-17-[address] BRIDGET FARLEY . Facility:[facility] Start: 05-01-2019 End: 05-02-2019 ambulatory Christie Gillespie ODILON Facility:[id number] 5 Start: 02-11-2017 End: 02-12-2017 Evaluation and management of inpatient PROVIDER UNKNOWN Facility:[facility] Procedures Date Procedure Procedure Detail Performing Clinician Start: 07-25-2024 Computerized ophthal rebecca imaging retina Arash Post MD Work Phone: Start: 07-16-2024 IOL BIOMETRY W/ IOL CALC OS (LEFT EYE) Ramin Sprague MD Work Phone: Start: 07-16-2024 ASCAN ONLY - DIAGNOS TIC OS (LEFT EYE) Ramin Sprague MD Work Phone: Start: 06-20-2024 Computerized ophthal rebecca imaging retina Arash Post MD Work Phone: Start: 06-20-2024 Intravitreal njx pharmacologic agt spx Arash Post MD Work Phone: Start: 04-25-2024 Computerized ophthal rebecca imaging retina rAash Post MD Work Phone: Start: 04-25-2024 Intravitreal njx pharmacologic agt spx Arash Post MD Work Phone: Start: 03-14-2024 Intravitreal njx pharmacologic agt spx Arash Post MD Work Phone: Start: 03-14-2024 Computerized ophthal rebecca imaging retina Arash Post MD Work Phone: Start: 03-14-2024 ASCAN ONLY - DIAGNOS TIC OD (RIGHT EYE) Ramin Sprague MD Work Phone: Start: 03-14-2024 IOL BIOMETRY W/ IOL CALC OD (RIGHT EYE) Ramin Sprague MD Work Phone: Start: 02-15-2024 Intravitreal njx pharmacologic agt spx Arash Post MD Work Phone: Start: 02-15-2024 Computerized ophthal rebecca imaging retina Arash Post MD Work Phone: Start: 01-30-2024 Radex spine cervical 2 or 3 views Lisseth BELTRAN Work Phone: Start: 07-11-2023 Computed tomography of abdomen and pelvis with contrast DO Jasiel Franks Work Phone: Start: 07-11-2023 CT of thorax with contrast DO Jasiel Franks Work Phone: Start: 07-11-2023 CT angiography of ne ck vessels DO Jasiel Franks Work Phone: Start: 07-11-2023 CT cervical spine wi thout contrast DO Jasiel Franks Work Phone: Start: 07-11-2023 CT of head without contrast DO Jasiel Franks Work Phone: Start: 07-11-2023 End: 07-11-2023 Plain chest X-ray DO Jasiel Franks Work Phone: Start: 02-11-2017 DILATION OF 1 COR AR T WITH DRUG-ELUT INTRA, PERC APPROACH MARIE IRAHETA Start: 02-11-2017 FLUOROSCOPY OF AORTA , BI LE ART USING OTH CONTRAST MARIE IRAHETA Plan of Treatment Date Care Activity Detail Author Start: 07-11-2033 DTaP/Tdap/Td vaccine (2 - Td or Tdap) DTaP/Tdap/Td vaccine (2 - Td or Tdap) [facility] Start: 07-11-2033 Urine microalbumin profile DTaP,Tdap,Td Vaccine (2 - Td or Tdap) [facility] Start: 07-26-2026 Diabetes Screening Diabetes Screening [facility] Start: 07-25-2025 Glaucoma screening Dilated Retinal Exam [facility] Start: 07-05-2025 End: 12-12-2025 OCT MACULA CIRRUS OU (BOTH EYES) OCT MACULA CIRRUS OU (BOTH EYES) [facility] Imaging Routine Exudative age-related macular degeneration of left eye with active choroidal neovascularization (HCC) Expected: 07/05/2025, Expires: 12/12/[address] [facility] Work Phone: Comment on above: Expected: 07/05/2025, Expires: Start: 06-28-2025 End: 12-20-2025 ASCAN ONLY - DIAGNOSTIC OS (LEFT EYE) ASCAN ONLY - DIAGNOSTIC OS (LEFT EYE) [facility] Imaging Routine Nuclear senile cataract of left eye Expected: 06/28/2025, Expires: 12/20/2025 [facility] Comment on above: Expected: 06/28/2025, Expires: Start: 06-28-2025 Glaucoma screening Dilated Retinal Exam [facility] Start: 06-28-2025 End: 12-20-2025 IOL BIOMETRY W/ IOL CALC OS (LEFT EYE) IOL BIOMETRY W/ IOL CALC OS (LEFT EYE) [facility] Imaging Routine Nuclear senile cataract of left eye Expected: 06/28/2025, Expires: 12/20/2025 [facility] Comment on above: Expected: 06/28/2025, Expires: Start: 05-10-2025 End: 10-17-2025 OCT MACULA CIRRUS OU (BOTH EYES) OCT MACULA CIRRUS OU (BOTH EYES) [facility] Imaging Routine Exudative age-related macular degeneration of left eye with active choroidal neovascularization (HCC) Expected: 05/10/2025, Expires: 10/17/[address] [facility] Work Phone: Comment on above: Expected: 05/10/2025, Expires: Start: 03-29-2025 End: 09-05-2025 OCT MACULA CIRRUS OU (BOTH EYES) OCT MACULA CIRRUS OU (BOTH EYES) [facility] Imaging Routine Exudative age-related macular degeneration of left eye with active choroidal neovascularization (HCC) Expected: 03/29/2025, Expires: 09/05/[address] [facility] Work Phone: Comment on above: Expected: 03/29/2025, Expires: Start: 03-01-2025 End: 08-08-2025 OCT MACULA CIRRUS OU (BOTH EYES) OCT MACULA CIRRUS OU (BOTH EYES) [facility] Imaging Routine Exudative age-related macular degeneration of left eye with active choroidal neovascularization (HCC) Expected: 03/01/2025, Expires: 08/08/[address] [facility] Work Phone: Comment on above: Expected: 03/01/2025, Expires: Start: 02-22-2025 End: 08-16-2025 ASCAN ONLY - DIAGNOSTIC OD (RIGHT EYE) ASCAN ONLY - DIAGNOSTIC OD (RIGHT EYE) [facility] Imaging Routine Nuclear senile cataract of right eye Expected: 02/22/2025, Expires: 08/16/2025 [facility] Comment on above: Expected: 02/22/2025, Expires: Start: 02-22-2025 Glaucoma screening Dilated Retinal Exam [facility] Start: 02-22-2025 End: 08-16-2025 IOL BIOMETRY W/ IOL CALC OD (RIGHT EYE) IOL BIOMETRY W/ IOL CALC OD (RIGHT EYE) [facility] Imaging Routine Nuclear senile cataract of right eye Expected: 02/22/2025, Expires: 08/16/2025 [facility] Comment on above: Expected: 02/22/2025, Expires: Start: 01-13-2025 Hemoglobin A1c measurement HbA1C [facility] Start: 08-22-2024 End: 08-22-2024 Patient encounter procedure Ophthalmolog y Comment on above: *10 W DTI EYLEA OS 1 WEEK- CATARACT HAO CARLOS ALBERTO LEFT EYE ONLY - MELVIN Start: 08-14-2024 End: 08-14-2024 Patient encounter procedure 08/14/2024 10:15 AM EDT Office Visit [facility] Op[facility]mology [address] [facility] [place] [address] Ramin Sprague MD [address] [facility] [address] 1 DAY- CATARACT SURGERY LEFT EYE ONLY - MELVIN Ophthalmology Comment on above: 1 DAY- CATARACT SURGERY LEFT EYE ONLY - MELVIN Start: 08-13-2024 End: 08-13-2024 Admission to same day surgery center 08/13/2024 9:45 AM EDT - 08/13/2024 10:20 AM EDT Surgery Ambulatory Surgery [address] [place] [address] Ramin Sprague MD [address] [facility] [address] PHACOEMULSIFICATION CATARACT IMPLANT INTRAOCULAR LENS W/O ENDOSCOPIC CYCLOPHOTOCOAGULATION Ambulatory Surgery Comment on above: PHACOEMULSIFICATION CATARACT IMPLANT INT RAOCULAR LENS W/O ENDOSCOPIC CYCLOPHOTOCOAGULATION Start: 08-13-2024 End: 08-13-2024 Oph bmtry prtl coher intrfrmtry io lens pwr ger OPHTHALMIC BIOMETRY BY PARTIAL COHERENCE INTERFEROMETRY W/INTRAOCULAR LENS POWER CALCULATION Nuclear senile cataract of left eye 08/13/2024 9:45 AM EDT MARIA ELENA [place] Start: 08-13-2024 Subsequent hospital visit by physician 08/13/2024 9:45 AM EDT Hospital Encounter Ambulatory Surgery [address] [place] [address] Ramin Sprague MD [address] [place] [address] Nuclear senile cataract of left eye [H25.12] Ambulatory Surgery Comment on above: Nuclear senile cataract of left eye [H25 .12] Start: 08-13-2024 End: 08-13-2024 Xcapsl ctrc rmvl insj io lens prosth w/o ecp PHACOEMULSIFICATION CATARACT IMPLANT INTRAOCULAR LENS W/O ENDOSCOPIC CYCLOPHOTOCOAGULATION Nuclear senile cataract of left eye 08/13/2024 9:45 AM EDT MARIA ELENA CHRISTINE Start: 07-16-2024 End: 10-15-2024 Basic metabolic 2000 panel - Serum or Plasma [facility] Comment on above: Expected: 07/16/2024, Expires: Start: 07-16-2024 End: 10-15-2024 Hemoglobin A1c in Blood [facility] Work Phone: Comment on above: Expected: 07/16/2024, Expires: Start: 07-16-2024 End: 07-16-2024 Patient encounter procedure 07/16/2024 11:00 AM EST Office Visit [facility] Ophthalmology [address] [place] [address] CATARACT SURGERY LEFT EYE ONLY - MELVIN Ophthalmology Comment on above: CATARACT SURGERY LEFT EYE ONLY - MELVIN Start: 07-16-2024 End: 07-16-2024 Admission to same day surgery center 07/16/2024 10:20 AM EST PAT Pre Anesthesia [address] [place] [address] 1, Pacc Christine [address] [place] [address] CATARACT SURGERY LEFT EYE ONLY - MELVIN Pre Anesthesia Comment on above: CATARACT SURGERY LEFT EYE ONLY - MELVIN Start: 06-28-2024 End: 06-28-2024 Patient encounter procedure Ophthalmolog y Comment on above: OS only CAT Eval CAT EVAL OS Start: 06-20-2024 End: 06-20-2024 Patient encounter procedure 06/20/2024 9:45 AM EST Office Visit [facility] Ophthalmology [address] [place] [address] Arash Post MD [address] [place] [address] *8 W DTI EYLEA OS Ophthalmology Comment on above: *8 W DTI EYLEA OS Start: 05-23-2024 Advance Directive Discussion Advance Directive Discussion [facility] Start: 04-25-2024 End: 04-25-2024 Patient encounter procedure Ophthalmolog y Comment on above: Return in about 6 weeks (around ).DTI Eylea left eye *6 W, DTI EYLEA OS Start: 04-11-2024 End: 04-11-2024 Admission to same day surgery center 04/11/2024 12:20 PM EST - 04/11/2024 12:55 PM EST Surgery Ambulatory Surgery [address] [place] [address] Ramin Sprague MD [address] [facility] [place] [address] PHACOEMULSIFICATION CATARACT IMPLANT INTRAOCULAR LENS W/O ENDOSCOPIC CYCLOPHOTOCOAGULATION Ambulatory Surgery Comment on above: PHACOEMULSIFICATION CATARACT IMPLANT INT RAOCULAR LENS W/O ENDOSCOPIC CYCLOPHOTOCOAGULATION Start: 04-11-2024 End: 04-11-2024 Oph bmtry prtl coher intrfrmtry io lens pwr ger OPHTHALMIC BIOMETRY BY PARTIAL COHERENCE INTERFEROMETRY W/INTRAOCULAR LENS POWER CALCULATION Nuclear senile cataract of right eye 04/11/2024 12:20 PM EST MARIA ELENA [place] Start: 04-11-2024 Subsequent hospital visit by physician 04/11/2024 12:20 PM EST Hospital Encounter Ambulatory Surgery [address] [place] [address] Ramin Sprague MD [address] [facility] [place] [address] Nuclear senile cataract of right eye [H25.11] Ambulatory Surgery Comment on above: Nuclear senile cataract of right eye [H2 5.11] Start: 04-11-2024 End: 04-11-2024 Xcapsl ctrc rmvl insj io lens prosth w/o ecp PHACOEMULSIFICATION CATARACT IMPLANT INTRAOCULAR LENS W/O ENDOSCOPIC CYCLOPHOTOCOAGULATION Nuclear senile cataract of right eye 04/11/2024 12:20 PM EST [facility] Start: 03-14-2024 End: 03-14-2024 Patient encounter procedure Ophthalmolog y Comment on above: Return in about 1 month (around 03/16/20). CATARACT SURGERY RIG HT EYE MELVIN *1 month (around ). EYLEA OS Start: 03-14-2024 End: 03-14-2024 Admission to same day surgery center 03/14/2024 7:00 AM EDT PAT Pre Anesthesia [address] [place] [address] 1, [facility] [address] [place] [address] CATARACT SURGERY RIGHT EYE MELVIN Pre Anesthesia Comment on above: CATARACT SURGERY RIGHT EYE MELVIN Start: 02-23-2024 End: 02-23-2024 Patient encounter procedure 02/23/2024 11:15 AM EDT Office Visit [facility] [address] [facility] [place] [address] Ramin Sprague MD [address] [place] [address] Cataract Consult *Referral scanned into [facility].* Ophthalmology Comment on above: Cataract Consult *Referral scanned into [facility].* Start: 01-22-2024 COVID-19 Vaccine ( season) COVID-19 Vaccine ( season) [facility] Start: 01-22-2024 Covid-19 Vaccine ( season) Covid-19 Vaccine ( season) [facility] Start: 01-22-2024 Influenza vaccination Influenza Vaccine (#1) [facility] Start: 01-11-2024 Hemoglobin A1c measurement HbA1C [facility] Start: 12-22-2023 Influenza vaccination Flu vaccine (#1) [employer] Start: 10-19-2023 Annual Wellness Visit (Medicare) Annual Wellness Visit (Medicare) [facility] Start: 05-23-2023 Advance Directive Discussion Advance Directive Discussion [facility] Start: 2016 RSV Vaccine (1 - 1-dose 75+ series) RSV Vaccine (1 - 1-dose 75+ series) [facility] Start: 2006 Pneumococcal Vaccine: 65+ (1 of 1 - PCV) Pneumococcal Vaccine: 65+ (1 of 1 - PCV) [facility] Start: 2001 Respiratory Syncytial Virus (RSV) or age 60 yrs+ (1 - 1-dose 60+ series) Respiratory Syncytial Virus (RSV) or age 60 yrs+ (1 - 1-dose 60+ series) [facility] Start: 12-24-1991 Shingles vaccine (1 of 2) Shingles vaccine (1 of 2) [facility] Start: 12-24-1991 Shingrix Vaccine (1 of 2) Shingrix Vaccine (1 of 2) [facility] Start: 1960 Pneumococcal Vaccine: 50+ (1 of 2 - PCV) Pneumococcal Vaccine: 50+ (1 of 2 - PCV) [facility] Start: 12-24-1959 Anxiety Screening Anxiety Screening [facility] Start: 12-24-1959 Depression Screening Depression Screening [facility] Start: 12-24-1959 Hepatitis B surface antibody level LDL Cholesterol [facility] Start: 1953 Depression Screen Depression Screen [facility] Start: 12-24-1951 Diabetic foot examination Diabetic Foot Exam [facility] Start: 12-24-1951 Hepatitis B screening Urine Albumin:Creatinine Ratio [facility] Start: 12-24-1951 Lipid panel Lipids [facility] Start: 12-24-1947 Pneumococcal 65+ years Vaccine (1 of 2 - PCV) Pneumococcal 65+ years Vaccine (1 of 2 - PCV) [facility] Start: 12-24-1947 Pneumococcal Vaccine: 65+ (1 of 2 - PCV) Pneumococcal Vaccine: 65+ (1 of 2 - PCV) [facility] End: 08-13-2025 CORNEAL TOPOGRAPHY ATLAS OU (BOTH EYES) CORNEAL TOPOGRAPHY ATLAS OU (BOTH EYES) OPHT Imaging Routine Nuclear senile cataract of left eye Nuclear senile cataract of right eye 1 Occurrences starting 02/20/2024 until 08/13/2025 [facility] Comment on above: 1 Occurrences starting 02/20/2024 until 08/13/2025 CORNEAL TOPOGRAPHY A TLAS OU (BOTH EYES) CORNEAL TOPOGRAPHY ATLAS OU (BOTH EYES) OPHT Imaging Routine Nuclear senile cataract of left eye Nuclear senile cataract of right eye 02/23/2024 11:04 AM EDT [facility] End: 11-28-2025 CORNEAL TOPOGRAPHY PENTACAM OS (LEFT EYE) CORNEAL TOPOGRAPHY PENTACAM OS (LEFT EYE) OPHT Imaging Routine Nuclear senile cataract of left eye 1 Occurrences starting 06/06/2024 until 11/28/[address] [facility] Work Phone: Comment on above: 1 Occurrences starting 06/06/2024 until 11/28/2025 End: 08-13-2025 OCT MACULA CIRRUS OU (BOTH EYES) OCT MACULA CIRRUS OU (BOTH EYES) OPHT Imaging Routine Nuclear senile cataract of left eye Nuclear senile cataract of right eye 1 Occurrences starting 02/20/2024 until 08/13/[address] [facility] Work Phone: Comment on above: 1 Occurrences starting 02/20/2024 until 08/13/2025 OCT MACULA CIRRUS OU (BOTH EYES) OCT MACULA CIRRUS OU (BOTH EYES) OPHT Imaging Routine Nuclear senile cataract of left eye Nuclear senile cataract of right eye 02/23/2024 11:20 AM EDT [facility] Patient referral [facility] Work Phone: Immunizations Immunization Date Immunization Notes Care Provider Fa cility 07-11-2023 tetanus toxoid, redu breezy diphtheria toxoid, and acellular pertussis vaccine, adsorbed DO Jasiel Franks Work Phone: [facility] 03-06-2021 influenza virus vaccine, unspecified formulation Arash Post MD Work Phone: [facility] Payers Date Payer Category Payer Unknown [id number] 2023 Self-pay 2023 Unknown [id number] 2021 Private Health Insurance MMO MED ICARE SUPPLEMENT [id number] 2021 Unknown MMO MMO MEDICARE SUPPLEMENT [id number] 2021-Present [phone] [address] [place] [address] Indemnity [id number] 2019 Medicare [id number] 2006 Medicare [id number] 1959 Medicare [id number] 1959 Medicare [id number] 1959 Unknown [id number] 1941 Unknown [id number] 2.840.1.137955.3.579.2. 727 1941 Unknown [id number] 2.840.1.548403.3.579.2. 593 1941 Unknown [id number] 2.840.1.198544.3.579.2. 593 1941 Unknown [id number] 2.16840.1.902350.3.579.2. 593 1941 Unknown [id number] 2.16.840.1.247740.3.579.2. 593 1941 Unknown [id number] 2.16840.1.358450.3.579.2. 593 1941 Unknown [id number] 2.16840.1.638402.3.579.2. 593 1941 Unknown [id number] 2.16.840.1.595268.3.579.2. 593 1941 Unknown [id number] 2.16.840.1.681359.3.579.2. 593 1941 Unknown [id number] 2.16.840.1.140377.3.579.2. 593 1941 Unknown [id number] 2.16.840.1.862972.3.579.2. 593 1941 Unknown [id number] 2.16.840.1.524207.3.579.2. 593 1941 Unknown [id number] 2.16.840.1.941398.3.579.2. 593 1941 Unknown [id number] 2.16.840.1.468446.3.579.2. 593 1941 Unknown [id number] 2.16.840.1.181609.3.579.2. 593 1941 Unknown [id number] 2.16.840.1.362657.3.579.2. 593 1941 Unknown [id number] 2.16.840.1.367030.3.579.2. 593 1941 Unknown [id number] 2.16.840.1.933284.3.579.2. 593 1941 Unknown [id number] 2.16.840.1.314443.3.579.2. 176 1941 Unknown [id number] 2.16.840.1.321574.3.579.2. 173 1941 Unknown [id number] 2.16.840.1.183040.3.579.2. 173 1941 Unknown [id number] 2.16.840.1.135252.3.579.2. 173 1941 Unknown [id number] 2.16.840.1.130810.3.579.2. 175 1941 Unknown [id number] 2.16.840.1.563748.3.579.2. 175 1941 Unknown [id number] 2.16.840.1.550896.3.579.2. 175 Unknown X Medicare [id number] Unknown Regular [employer] [id number] Unknown [id number] 2.16.840.1.400111.3.579.2. 531 Social History Date Type Detail Facility Tobacco smoking stat [facility] Unknown if ever smoked [facility] Work Phone: Start: 1940 Sex Assigned At Male F [facility] Start: 02-15-2024 End: 07-16-2024 Tobacco smoking status NHIS Ex-smoker [facility] Work Phone: Start: 05-23-2013 End: 02-15-1984 History of tobacco use Current smoker [employer] Start: 05-23-2013 End: 02-15-1984 History of tobacco use Cigarette Smoker [employer] Start: 02-15-2024 End: 07-16-2024 Tobacco use and exposure Smokeless tobacco non-user [employer] Start: 1940 Sex assigned at Not on file B ON [employer] Start: 02-15-2024 End: 04-11-2024 Gender identity Not on file [employer] Start: 02-15-2024 End: 04-11-2024 History of Social function [employer] National Score (1-10 0), lower number is lower risk 78 [facility] Start: 03-14-2024 End: 07-25-2024 Alcoholic beverage intake Ex-drinker (finding) [facility] Has the [employer], [employer], or water [email or web address] threatened to shut off services in your home in past 12Mo No [employer] How often to you hav e a drink containing alcohol? Never BON [employer] (I/We) worried wheth er (my/our) food would run out before (I/we) got money to buy more. Never true [facility] Medical Equipment Procedure Code Equipment Code Equipment Origin al Text Equipment Identifier Dates [id number] [facility] - [id number] Start: 04-11-2024 Clinical Notes 02-19-2022 to 07-25-2024 Arash Post MD - 07/25/2024 10:42 AM ESTTelephone Encounter - Momarcost Corinna, USER EXPERIENCE TEAM LEAD - 07/18/2024 8:21 AM ESTTelephone Encounter - Moyet Corinna, USER EXPERIENCE TEAM LEAD - 07/18/2024 8:21 AM ESTPatient Instructions Note Date & Type Note Facility 07-25-2024 Note Date of Procedure 07/25/2024. OCT Macula Interpretation Right Eye Findings include Drusen, IS/OS junction, RPE Irregularity; Negative for Intraretinal fluid, Subretinal fluid. Left Eye Findings include Subretinal fluid, PED, Drusen, IS/OS junction, RPE Irregularity, Atrophy. Interval Change Right Eye Stable. Left Eye Stable. [facility] 07-25-2024 Note HNO ID: [id number] Author: ARASH POST MD Service: ? 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 Patient instructed to call CHRISTINE if new distortion or blind spot arises Pseudophakia, right eye - Intraocular lens well-centered - Plan: observe Cataracts left eye -Appears visually significant -Follow up with Dr. Sprague. Clear from retina standpoint -CEIOL left eye 08/13/24 Follow Up: As scheduled for DTI Eylea left eye I have confirmed and edited as necessary the relevant HPI, ophthalmic history, ROS, and exam findings as obtained by others. I have seen and examined this patient. I have discussed the case and the management of this patient's care with the Resident, if applicable. I also have reviewed and agree with the assessment and plan as stated above and agree with all of its relevant components. 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 Patient instructed to call CHRISTINE if new distortion or blind spot arises Pseudophakia, right eye - Intraocular lens well-centered - Plan: observe Cataracts left eye -Appears visually significant -Follow up with Dr. Sprague. Clear from retina standpoint -CEIOL left eye 08/13/24 Follow Up: As scheduled for DTI Eylea left eye I have confirmed and edited as necessary the relevant HPI, ophthalmic history, ROS, and exam findings as obtained by others. I have seen and examined this patient. I have discussed the case and the management of this patient's care with the Resident, if applicable. I also have reviewed and agree with the assessment and plan as stated above and agree with all of its relevant components. documented in this encounter [facility] 07-18-2024 Telephone encounter Note Per Christie Cassidy CNP, patient's potassium is elevated. I called and spoke with patient's nephew, Reid. He is aware patient needs to hold potassium supplement, increase hydration and avoid high potassium foods. Reid is aware patient needs to go to any [facility] lab next week for repeat lab. Corinna Murry LPN July 18, 2024 8:23 AM [facility] 07-18-2024 Miscellaneous Notes Per Christie Cassidy CNP, patient's potassium is elevated. I called and spoke with patient's nephew, Reid. He is aware patient needs to hold potassium supplement, increase hydration and avoid high potassium foods. Reid is aware patient needs to go to any [facility] lab next week for repeat lab. Corinna Murry LPN July 18, 2024 8:23 AM documented in this encounter [facility] 07-16-2024 Note HNO ID: [id number] Author: CHRISTAL ANDERSON COA Service: ? Author Type: Recruitment Consultant Type: Progress Notes Filed: 07/16/2024 11:17 Note Text: CONFIRM AIM NEAR LEFT EYE AIM -2.00 TORIC IOL DECLINED SECONDARY TO NEEDING PRISM GLASSES. PRAKASH Shafer [facility] 07-16-2024 Note Date of Procedure 07/16/2024. Recruitment Consultant Information PRAKASH Shafer . Notes Measurements only - see Procedure Record under Scanned Documents for signed results. [facility] 07-16-2024 Note Date of Procedure 07/16/2024. Recruitment Consultant Information PRAKASH Shafer . Notes Ascan report in paper chart and scanned to patient chart after post op period. A-SCAN RIGHT EYE: done A-SCAN LEFT EYE: 25.69 [facility] 07-16-2024 History of Present illness Narrative CONFIRM AIM NEAR LEFT EYE AIM -2.00 TORIC IOL DECLINED SECONDARY TO NEEDING PRISM GLASSES. PRAKASH Shafer documented in this encounter [facility] 07-16-2024 History and physical note HISTORY AND PHYSICAL EXAMINATION SERVICE DATE: 07/16/2024 SERVICE TIME: 10:24 AM PRIMARY CARE PHYSICIAN: Bridget Farley MD REASON FOR VISIT: Elvira Bergman is a 83 year old male who is scheduled for Left - PHACOEMULSIFICATION CATARACT IMPLANT INTRAOCULAR LENS W/O ENDOSCOPIC CYCLOPHOTOCOAGULATION Left - OPHTHALMIC BIOMETRY BY PARTIAL COHERENCE INTERFEROMETRY W/INTRAOCULAR LENS POWER CALCULATION at the request of Dr. Ramin Sprague for consultation. My final recommendation will be communicated back to the requesting physician by way of shared medical record or letter. Assessment Benign prostatic hyperplasia without urinary obstruction Assessment: stable on flomax Type 2 diabetes mellitus without complication (HCC) Assessment: Currently taking metformin, glipizide No results found for: HBA1C Persistent atrial fibrillation (HCC) Assessment: stable on coumadin, NSR today, follows with pcp Coronary atherosclerosis Assessment: stable with history of PCI. On coumadin Essential hypertension Assessment: stable and compliant with current medications Last 5 Encounter BP Readings: Date: BP: 07/16/2024 115/64 04/11/2024 101/59 03/14/2024 93/58 02/23/2024 100/55 Pure hypercholesterolemia Assessment: stable with current medication regimen Chronic systolic heart failure (HCC) Assessment: stable, on lasix, euvolemic, compensated today Fung Activity Status Index: METS: Walk indoors, such as around the house (1.75 METs) Do light work around the house, such as dusting or washing dishes (2.70 METs) Take care of self; that is eating, dressing, bathing, using the toilet (2.75 METs) Walk a block or two on level ground (2.75 METs) Do moderate work around the house, such as vacuuming, sweeping floors, or carrying in groceries (3.50 METs) Climb a flight of stairs or walk up a hill (5.50 METs) DASI Score: 18.95 Patient denies any chest pain or undue shortness of breath with the above physical activity. Clinical Frailty Scale: 4. Apparently vulnerable STOP-Bang Score: Has or is being treated for high blood pressure Patient over 50 years old Male patient Denies snoring loudly Denies feeling tired, fatigued, or sleepy during the daytime Has not been observed to stop breathing or choking/gasping during sleep BMI less than or equal to 35 kg/m^2 Does not have a large neck STOP-Bang Score: 3 [id number] Score: Age: >=75 Sex: male CHF history: Yes Hypertension history: Yes Stroke/TIA/thromboembolism history: No Vascular disease history: Yes Diabetes history: Yes [id number] Score: 6 ARISCAT Score: Age: >80 Preoperative SpO2: >=96% Respiratory infection in the last month: No Duration of surgery: <2 hrs Emergency procedure: No ARISCAT Score: ANESTHESIA FINDINGS: Intubation History: No history of difficult intubation Significant Anesthesia Considerations: none Airway History: No history of difficult airway I - PHYSICAL EVALUATION AIRWAY Patient intubated: No. Tracheostomy tube not present Mallampati: II. TM distance: >3 FB. Neck ROM: full ROM without neurological symptoms. Mouth opening: adequate. Short neck: no. Thick neck: no Resendez present: no Lip Bite Test: II Microretrognathia/Micronagthia/Rece ssed Chin: No DENTAL Dental findings: edentulous. II - ANESTHESIA PLAN Anesthetic plan additional comments: *PACC/TCI - anesthesia choice. Beta Mer Monitoring Plan Post Procedure Analgesic Plan Prepared for surgery: This patient is optimally prepared for surgery. Previously had right cataract done at [facility] on 04/11/24. CONSULTS: Patient does not require consults for optimization at this time. The Following Tests/Procedures Have Been Initiated: Orders Placed This Encounter Hemoglobin A1C Standing Status: Future Expected Date: 07/16/2024 Expiration Date: 10/15/2024 BMP Standing Status: Future Expected Date: 07/16/2024 Expiration Date: 10/15/2024 Planned Anesthetic: Per anesthesia choice Subjective CHIEF COMPLAINT: Nuclear senile cataract of left eye [H25.12] HPI: Patient is a 83 year old MALE presenting for pre-op evaluation for the above procedure. Patient states decline in vision from cataracts impairs activities of daily living. Patient denies any chest pain, shortness of breath, palpitations, fever/chills, nausea/vomiting, fatigue, or diarrhea. REVIEW OF SYSTEMS: PAIN ASSESSMENT: General: No weight loss, malaise or fevers. Neuro: No history of TIA's, stroke, CHALK TESTER tumor, impaired sensorium, hemiplegia, paraplegia or quadraplegia. No neurological symptoms or problems. Respiratory: Positive for former smoker, Negative for Current cough, Pneumonia within 6 weeks (date) Cardiovascular: Positive for: HTN, HLD, Afib, CAD, CHF, h/o STEMI, Negative for Chest Pain, DVT/PE GI: No history of GI symptoms or problems. No history of esophageal varices, recent ascites, or ETOH greater than 2 drinks per day. : BPH Endocrine: diabetes Hematology: coumadin Oncology: No history of CA metastasis, chemo within 30 days, or radiotherapy within 90 days. Has not lost 10% of body wt in 6 months. No history of oncological symptoms or problems. Implanted Devices: No Psych: No history of psychiatric symptoms or problems. Marijuana use: No Musculoskeletal: h/o neck fracture Skin: Negative for lesions, rash and itching. 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 Chronic Systolic Heart Failure (Hcc) Congestive Heart Failure (Hcc) Coronary Atherosclerosis Essential Hypertension Benign Prostatic Hyperplasia Without Urinary Obstruction Persistent Atrial Fibrillation (Hcc) Pure Hypercholesterolemia Type 2 Diabetes Mellitus Without Complication (Hcc) Combined Form of Age-Related Cataract, Left Eye Pseudophakia, Right Eye Strabismus Fracture of Neck, Unspecified, Sequela Covid Immunization Dates Current Care Gaps Covid-19 Vaccine ( season) Overdue since 01/22/2024 05/31/2022 Imm Admin: COVID-19 vaccine, age 12+ yr, bivalent (MODERNA) 12/07/2021 Imm Admin: COVID-19 original vaccine, full dose, monovalent (MODERNA) 04/08/2021 Imm Admin: COVID-19 original vaccine, full dose, monovalent (MODERNA) 07/14/2020 Imm Admin: COVID-19 original vaccine, full dose, monovalent (MODERNA) 06/16/2020 Imm Admin: COVID-19 original vaccine, full dose, monovalent (MODERNA) Only the first 5 history entries have been loaded, but more history exists. 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 AIM: -1.50 FAMILY HISTORY Problem Relation Age of Onset No Ocular Disease Father No Ocular Disease Mother Social History Tobacco Use Smoking status: Former Types: Cigarettes Start date: 2013 Quit date: 02/15/1984 Years since quittin.4 Smokeless tobacco: Never Vaping Use Vaping status: Never Used Substance Use Topics Alcohol use: Not Currently Drug use: Never Prior to Admission medications as of 07/16/24 0944 Medication Sig Last Dose Taking prednisoLONE acetate (PRED FORTE) 1 % ophthalmic suspension 1 drop in the operative eye 4 times daily for 7 days after surgery, then taper as directed. Yes keTORolac (ACULAR) 0.5 % ophthalmic solution Use one drop in operative eye as directed by Dr. Sprague starting tomorrow. Yes atenolol (TENORMIN) 50 mg tablet Take 1 tablet by mouth every 12 hours. Yes atorvastatin (LIPITOR) 80 mg tablet Take 1 tablet by mouth every afternoon. Yes finasteride (PROSCAR) 5 mg tablet Take 1 tablet by mouth every afternoon. Yes furosemide (LASIX) 40 mg tablet TAKE 1 TABLET BY MOUTH ONCE EVERY MORNING 30 Yes glipiZIDE (GLUCOTROL) 5 mg tablet Take 1 tablet by mouth every 12 hours. Yes lisinopril (ZESTRIL) 20 mg tablet Take 1 tablet by mouth every afternoon. Yes metFORMIN (GLUCOPHAGE) 500 mg tablet Take 1 tablet by mouth every 12 hours. Yes amLODIPine (NORVASC) 2.5 mg tablet Yes vit C/E/zinc ox/sara/lut/zeax (ICAPS AREDS2 ORAL) Take by mouth. Yes warfarin (COUMADIN) 3 mg tablet Take by mouth. Yes nitroglycerin sublingual (NITROQUICK) 0.4 mg SL tablet Dissolve under the tongue. Yes KLOR-CON M20 20 mEq tablet Take 20 mEq by mouth two times a day. Yes tamsulosin (FLOMAX) 0.4 mg Take 0.4 mg by mouth once daily. Yes No medication comments found. ALLERGIES Allergen Reactions Apixaban Shortness of Breath Shortness of breath Objective PHYSICAL EXAM: VITALS: BP 115/64 Pulse 67 Temp (Src) 97.6 (Oral) Resp 18 Ht 6' 0 (1.83m) Wt 180 lb 12.4 oz (82.0kg) SpO2 98% BMI 24.51 kg/(m^2). General: Alert and oriented, No acute distress Skin: Normal color, no rash, no lesions. HEENT: EOM, pupils equal, round and reactive. Cardiovascular: Normal S1 & S2, no rubs, murmurs or gallops. No JVD. Pulse regular. Lungs: Normal breath sounds, no wheezes or crackles. Abdomen: Soft, non-tender, no rigidity. Extremities: No deformity, no edema or tenderness, no joint swelling or clubbing. Neurological: Normal cognition and motor skills. Pulses: Carotid and radial pulses normal +2. Diagnostic tests reviewed for today's visit: Lab Value Units Date High Low HB No results within date range. HCT No results within date range. WBC No results within date range. PLT No results within date range. NA No results within date range. K No results within date range. GLUC No results within date range. BUN No results within date range. CREAT No results within date range. PTSEC No results within date range. INR No results within date range. APTT No results within date range. ALT No results within date range. AST No results within date range. TBILI No results within date range. TSH No results within date range. No results found for: HBA1C Most recent EKG 07/13/23 Atrial fibrillation with slow ventricular response Left axis deviation Left bundle branch block Abnormal ECG EKG 12/23/21: a.fib, LBBB EKG 11/17/21: SR, 1st degree AV block, LBBB Instructions Given to Patient: Instructions located in the after visit summary. Patient given verbal and written preop instructions and voices comprehension and compliance. SIGNATURE: Christie Cassidy APRN.CASSANDRA PATIENT NAME: Elvira Bergman DATE: 07/16/2024 TIME: 10:25 AM [facility] 07-16-2024 History and physical note HISTORY AND PHYSICAL EXAMINATION SERVICE DATE: 07/16/2024 SERVICE TIME: 10:24 AM PRIMARY CARE PHYSICIAN: Bridget Farley MD REASON FOR VISIT: Elvira Bergman is a 83 year old male who is scheduled for Left - PHACOEMULSIFICATION CATARACT IMPLANT INTRAOCULAR LENS W/O ENDOSCOPIC CYCLOPHOTOCOAGULATION Left - OPHTHALMIC BIOMETRY BY PARTIAL COHERENCE INTERFEROMETRY W/INTRAOCULAR LENS POWER CALCULATION at the request of Dr. Ramin Sprague for consultation. My final recommendation will be communicated back to the requesting physician by way of shared medical record or letter. Assessment Benign prostatic hyperplasia without urinary obstruction Assessment: stable on flomax Type 2 diabetes mellitus without complication (HCC) Assessment: Currently taking metformin, glipizide No results found for: HBA1C Persistent atrial fibrillation (HCC) Assessment: stable on coumadin, NSR today, follows with pcp Coronary atherosclerosis Assessment: stable with history of PCI. On coumadin Essential hypertension Assessment: stable and compliant with current medications Last 5 Encounter BP Readings: Date: BP: 07/16/2024 115/64 04/11/2024 101/59 03/14/2024 93/58 02/23/2024 100/55 Pure hypercholesterolemia Assessment: stable with current medication regimen Chronic systolic heart failure (HCC) Assessment: stable, on lasix, euvolemic, compensated today Fung Activity Status Index: METS: Walk indoors, such as around the house (1.75 METs) Do light work around the house, such as dusting or washing dishes (2.70 METs) Take care of self; that is eating, dressing, bathing, using the toilet (2.75 METs) Walk a block or two on level ground (2.75 METs) Do moderate work around the house, such as vacuuming, sweeping floors, or carrying in groceries (3.50 METs) Climb a flight of stairs or walk up a hill (5.50 METs) DASI Score: 18.95 Patient denies any chest pain or undue shortness of breath with the above physical activity. Clinical Frailty Scale: 4. Apparently vulnerable STOP-Bang Score: Has or is being treated for high blood pressure Patient over 50 years old Male patient Denies snoring loudly Denies feeling tired, fatigued, or sleepy during the daytime Has not been observed to stop breathing or choking/gasping during sleep BMI less than or equal to 35 kg/m^2 Does not have a large neck STOP-Bang Score: 3 [id number] Score: Age: >=75 Sex: male CHF history: Yes Hypertension history: Yes Stroke/TIA/thromboembolism history: No Vascular disease history: Yes Diabetes history: Yes [id number] Score: 6 ARISCAT Score: Age: >80 Preoperative SpO2: >=96% Respiratory infection in the last month: No Duration of surgery: <2 hrs Emergency procedure: No ARISCAT Score: ANESTHESIA FINDINGS: Intubation History: No history of difficult intubation Significant Anesthesia Considerations: none Airway History: No history of difficult airway I - PHYSICAL EVALUATION AIRWAY Patient intubated: No. Tracheostomy tube not present Mallampati: II. TM distance: >3 FB. Neck ROM: full ROM without neurological symptoms. Mouth opening: adequate. Short neck: no. Thick neck: no Resendez present: no Lip Bite Test: II Microretrognathia/Micronagthia/Rece ssed Chin: No DENTAL Dental findings: edentulous. II - ANESTHESIA PLAN Anesthetic plan additional comments: *PACC/TCI - anesthesia choice. Beta Mer Monitoring Plan Post Procedure Analgesic Plan Prepared for surgery: This patient is optimally prepared for surgery. Previously had right cataract done at [facility] on 04/11/24. CONSULTS: Patient does not require consults for optimization at this time. The Following Tests/Procedures Have Been Initiated: Orders Placed This Encounter Hemoglobin A1C Standing Status: Future Expected Date: 07/16/2024 Expiration Date: 10/15/2024 BMP Standing Status: Future Expected Date: 07/16/2024 Expiration Date: 10/15/2024 Planned Anesthetic: Per anesthesia choice Subjective CHIEF COMPLAINT: Nuclear senile cataract of left eye [H25.12] HPI: Patient is a 83 year old MALE presenting for pre-op evaluation for the above procedure. Patient states decline in vision from cataracts impairs activities of daily living. Patient denies any chest pain, shortness of breath, palpitations, fever/chills, nausea/vomiting, fatigue, or diarrhea. REVIEW OF SYSTEMS: PAIN ASSESSMENT: General: No weight loss, malaise or fevers. Neuro: No history of TIA's, stroke, CHALK TESTER tumor, impaired sensorium, hemiplegia, paraplegia or quadraplegia. No neurological symptoms or problems. Respiratory: Positive for former smoker, Negative for Current cough, Pneumonia within 6 weeks (date) Cardiovascular: Positive for: HTN, HLD, Afib, CAD, CHF, h/o STEMI, Negative for Chest Pain, DVT/PE GI: No history of GI symptoms or problems. No history of esophageal varices, recent ascites, or ETOH greater than 2 drinks per day. : BPH Endocrine: diabetes Hematology: coumadin Oncology: No history of CA metastasis, chemo within 30 days, or radiotherapy within 90 days. Has not lost 10% of body wt in 6 months. No history of oncological symptoms or problems. Implanted Devices: No Psych: No history of psychiatric symptoms or problems. Marijuana use: No Musculoskeletal: h/o neck fracture Skin: Negative for lesions, rash and itching. 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 Chronic Systolic Heart Failure (Hcc) Congestive Heart Failure (Hcc) Coronary Atherosclerosis Essential Hypertension Benign Prostatic Hyperplasia Without Urinary Obstruction Persistent Atrial Fibrillation (Hcc) Pure Hypercholesterolemia Type 2 Diabetes Mellitus Without Complication (Hcc) Combined Form of Age-Related Cataract, Left Eye Pseudophakia, Right Eye Strabismus Fracture of Neck, Unspecified, Sequela Covid Immunization Dates Current Care Gaps Covid-19 Vaccine () Overdue since 01/22/2024 05/31/2022 Imm Admin: COVID-19 vaccine, age 12+ yr, bivalent (MODERNA) 12/07/2021 Imm Admin: COVID-19 original vaccine, full dose, monovalent (MODERNA) 04/08/2021 Imm Admin: COVID-19 original vaccine, full dose, monovalent (MODERNA) 07/14/2020 Imm Admin: COVID-19 original vaccine, full dose, monovalent (MODERNA) 06/16/2020 Imm Admin: COVID-19 original vaccine, full dose, monovalent (MODERNA) Only the first 5 history entries have been loaded, but more history exists. 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 AIM: -1.50 FAMILY HISTORY Problem Relation Age of Onset No Ocular Disease Father No Ocular Disease Mother Social History Tobacco Use Smoking status: Former Types: Cigarettes Start date: 2013 Quit date: 02/15/1984 Years since quittin.4 Smokeless tobacco: Never Vaping Use Vaping status: Never Used Substance Use Topics Alcohol use: Not Currently Drug use: Never Prior to Admission medications as of 07/16/24 0944 Medication Sig Last Dose Taking prednisoLONE acetate (PRED FORTE) 1 % ophthalmic suspension 1 drop in the operative eye 4 times daily for 7 days after surgery, then taper as directed. Yes keTORolac (ACULAR) 0.5 % ophthalmic solution Use one drop in operative eye as directed by Dr. Sprague starting tomorrow. Yes atenolol (TENORMIN) 50 mg tablet Take 1 tablet by mouth every 12 hours. Yes atorvastatin (LIPITOR) 80 mg tablet Take 1 tablet by mouth every afternoon. Yes finasteride (PROSCAR) 5 mg tablet Take 1 tablet by mouth every afternoon. Yes furosemide (LASIX) 40 mg tablet TAKE 1 TABLET BY MOUTH ONCE EVERY MORNING 30 Yes glipiZIDE (GLUCOTROL) 5 mg tablet Take 1 tablet by mouth every 12 hours. Yes lisinopril (ZESTRIL) 20 mg tablet Take 1 tablet by mouth every afternoon. Yes metFORMIN (GLUCOPHAGE) 500 mg tablet Take 1 tablet by mouth every 12 hours. Yes amLODIPine (NORVASC) 2.5 mg tablet Yes vit C/E/zinc ox/sara/lut/zeax (ICAPS AREDS2 ORAL) Take by mouth. Yes warfarin (COUMADIN) 3 mg tablet Take by mouth. Yes nitroglycerin sublingual (NITROQUICK) 0.4 mg SL tablet Dissolve under the tongue. Yes KLOR-CON M20 20 mEq tablet Take 20 mEq by mouth two times a day. Yes tamsulosin (FLOMAX) 0.4 mg Take 0.4 mg by mouth once daily. Yes No medication comments found. ALLERGIES Allergen Reactions Apixaban Shortness of Breath Shortness of breath Objective PHYSICAL EXAM: VITALS: BP 115/64 Pulse 67 Temp (Src) 97.6 (Oral) Resp 18 Ht 6' 0 (1.83m) Wt 180 lb 12.4 oz (82.0kg) SpO2 98% BMI 24.51 kg/(m^2). General: Alert and oriented, No acute distress Skin: Normal color, no rash, no lesions. HEENT: EOM, pupils equal, round and reactive. Cardiovascular: Normal S1 & S2, no rubs, murmurs or gallops. No JVD. Pulse regular. Lungs: Normal breath sounds, no wheezes or crackles. Abdomen: Soft, non-tender, no rigidity. Extremities: No deformity, no edema or tenderness, no joint swelling or clubbing. Neurological: Normal cognition and motor skills. Pulses: Carotid and radial pulses normal +2. Diagnostic tests reviewed for today's visit: Lab Value Units Date High Low HB No results within date range. HCT No results within date range. WBC No results within date range. PLT No results within date range. NA No results within date range. K No results within date range. GLUC No results within date range. BUN No results within date range. CREAT No results within date range. PTSEC No results within date range. INR No results within date range. APTT No results within date range. ALT No results within date range. AST No results within date range. TBILI No results within date range. TSH No results within date range. No results found for: HBA1C Most recent EKG 07/13/23 Atrial fibrillation with slow ventricular response Left axis deviation Left bundle branch block Abnormal ECG EKG 12/23/21: a.fib, LBBB EKG 11/17/21: SR, 1st degree AV block, LBBB Instructions Given to Patient: Instructions located in the after visit summary. Patient given verbal and written preop instructions and voices comprehension and compliance. SIGNATURE: Christie Cassidy APRN.CNP PATIENT NAME: Elvira Bergman DATE: 07/16/2024 TIME: 10:25 AM documented in this encounter [facility] 07-16-2024 Instructions Christie Cassidy APRN.CASSANDRA - 07/16/2024 10:08 AM EST PATIENT PREOPERATIVE INSTRUCTIONS Ramin Sprague has scheduled you for your procedure at this surgery center: [facility]: [phone] --[id number] [place] [address]. Please read below carefully for your personalized instructions. Dietary Restrictions: - No solid food after midnight. - You may have 12 ounces of clear liquids (water, clear juices such as apple juice or gatorade, carbonated beverages, clear tea, black coffee, jello) until 2 hours before scheduled arrival at facility. - Do not drink any alcohol after midnight the night before your surgery. - No Milk/Dairy - No Pulp Juices Medications: Unless instructed differently below, stay on all of your medications until your surgery. If you start any new medications after today's visit, please contact your surgeon. Pre-Surgery Med Instructions Medication Instructions furosemide (LASIX) 40 mg tablet Do not take the day of surgery glipiZIDE (GLUCOTROL) 5 mg tablet Do not take the day of surgery metFORMIN (GLUCOPHAGE) 500 mg tablet Do not take the day of surgery If you take any medications for erectile dysfunction-Cialis (Tadalafil), Levitra, Staxyn (Vardenafil) Viagra (Sildenenafil please do not take these for 48 hours before surgery. If you start any new medications after today's visit, please contact the surgeon's office. If you are currently using a tisl-ltr-sxon injectable or oral medication for diabetes or weight loss such as Dulaglutide (Trulicity), Exenatide (Byetta, Bydureon), Liraglutide (Victoza, Saxenda), Semaglutide (Ozempic, Wegovy, Rybelsus), or Tirzepatide (Mounjaro), the medicine should be stopped at least 7 days before surgery. These medicines can cause food to remain in your stomach for a very long time and increase the risks from surgery and anesthesia. Not stopping the medication for a long enough time may result in your surgery being rescheduled. Blood Thinning Medications: There is no need to stop blood thinners for cataract surgery Important Reminders: - If you are prescribed inhalers for breathing, continue using them. - If you use CPAP/BIPAP, and will be staying over night, bring the machine with you to the surgery center. - If you use home O2, please bring with you to the surgery center - Please abstain from cannabis use for one week prior to surgery - Candy, mints, and tobacco products are NOT permitted the morning of surgery. - Hearing aids, dentures and glasses may be worn the morning of surgery. - NO jewelry, body piercings, makeup, hairpins or contacts are to be worn the day of surgery. If you develop symptoms such as a fever, cold, or flu, or have other changes to your health within TWO DAYS of scheduled surgery or the morning of surgery, please contact the surgery center above. Personal Belongings: -Please have photo ID and insurance cards. -If you do not have a copy of advance directives on file with us, please bring a copy with you on the day of surgery. - Leave ALL valuables and money at home or with family members. For Outpatient Procedures: - YOU MUST HAVE A RESPONSIBLE AIRPLANE INSPECTOR TAKE YOU HOME. A CONSUMER LOAN UNDERWRITER OR LEARNING AND DEVELOPMENT ASSOCIATE CANNOT BE MADE A RESPONSIBLE AIRPLANE INSPECTOR. - We recommend that a responsible person stays with you overnight to take care of you. - You cannot stay in a hotel alone after outpatient surgery. You will not be permitted to have your surgery, if you do not have someone to take care of you. Arrival Time for Surgery: - The Surgery Center or hospital where you are having surgery will call the afternoon before surgery (or Tuesday for Tuesday surgery) with a scheduled arrival time. - If you have not heard by 4 pm, please contact the surgery center above. Please be aware that emergency situations arise, which may delay or change your surgical time. If this happens, we will notify you as soon as possible and regret any inconvenience. If you already have an Advance Directive, please fax a copy to [phone] or email to for it to be added to your chart. If you do not have an Advance Directive, you can find the appropriate form and more information at [email or web address]. We recommend that you complete the Advance Directive form found on the website and bring it with you the day of your surgery. It can be witnessed and scanned into your chart that day. documented in this encounter [facility] 06-28-2024 Note HNO ID: [id number] Author: RAMIN SPRAGUE MD Service: ? Author Type: Physician Type: Progress Notes Filed: 06/28/2024 11:12 Note Text: ASSESSMENT/PLAN: Patient educated with patient and his nephew on all findings: 1. Nuclear senile cataract of left eye - ICD9: 366.16, ICD10: H25.12 (primary diagnosis) 2. Regular astigmatism, bilateral CORNEAL TOPOGRAPHY: left eye 3.6 diopters at 67 degrees, regular Mac OCT: Normal foveal contour, drusen both eyes and drusenoid Pigment epithelial detachment left eye; no Subretinal fluid; no intraretinal fluid in both eyes Cataract Presurgical Documentation Cataract: Right eye (OD) Current Visual Acuity Right Eye Distance CC 20/40 Left Eye Distance CC 20/70 Best Corrected Vision Left Eye 20/70 Glare Testing: Left Eye High 20/70 Visual Function: Elvira Bergman states that the decline in vision from the cataract impedes his abilities as listed in the HPI, as well as other activities of daily living. Elvira Bergman has confirmed that he is no longer able to function adequately on a day-to-day basis because of his current visual condition. Further, it is my medical opinion that the cataract is the primary cause, or at least a significantly contributory cause of his visual dysfunction. With uncomplicated cataract surgery and lens implantation, it is my expectation that his visual function and quality of life will improve, significantly. The risks, benefits, alternatives, personnel and complications of cataract surgery with lens implantation were discussed with Elvira Bergman in detail. he appeared to understand and asked that I proceed with plans for surgery. Offered Phacoemulsification cataract extraction with insertion of intraocular lens by Dr. Sprague OS only. Patient wishes to proceed with surgery. All questions were answered. A-scan to be performed pre-operatively. Referred by Dr. Cisse, Thank you for your kind referral! Allergies: see list - Aim: -2.00 OS to keep his spherical equivalent similar to his current prism glasses. He declines toric IOL. - Anesthesia: Topical with MAC - Diabetes Mellitus No - Blood thinner use Yes; He has risk of KAMLA - Flomax/alpha-mer? Yes. The patient has a risk of surgery being complicated by Flomax induced IFIS. Plan to use Viscoat, possibly phenylephrine and may need Malyugan ring. They have an increased risk of corneal edema postop. - Able to lie supine Yes - Wants versed Yes - Happy for prayer Yes - Warned of IOL-induced photopsias Yes - Advised there is no guarantee of freedom from glasses Yes; -Discussed possible increased sensitivity and starbursting when exposed to flickering lights such as LED and fluorescent lights after cataract surgery, which usually decreases with time. - Discussed toric Intraocular lens not covered by insurance Yes $1400 per eye - Toric candidate: Offered Toric lens if patient qualifies by Ultrasound measurements. Without the toric IOL, patient was told that he will still need to wear glasses to correct residual astigmatism at all distances. Even with toric IOL, we cannot guarantee no residual astigmatism. He declines toric IOLs since he knows he will still need to wear prism glasses tobacco cutter after having cataract surgery. - Contact lens use No - e-scribed eye drops - Literature regarding cataract and cataract extraction by phacoemulsification offered. - Co managing with Dr. Cisse 3. Pseudophakia, right eye - ICD9: V43.1, ICD10: Z96.1 - S/P PC IOL right eye (04/11/2024) Aim: -1.50 - Doing well 4. Exudative age-related macular degeneration of left eye with active choroidal neovascularization (HCC) - ICD9: 362.52, 362.16, ICD10: H35.3221 - Patient was cleared to proceed with cataract surgery in left eye by Dr. Post at exam on 06/20/2024. -He had Eylea injection with Dr. Post 06/20/24; continue getting injections with Dr. Post after having cataract surgery. -Discussed guarded visual prognosis with cataract surgery and the fact that Age related macular degeneration can continue to progress whether or not the patient has cataract surgery. 5. Nonexudative age-related macular degeneration, right eye, intermediate dry stage - ICD9: 362.51, ICD10: H35.3112 -continue AREDS2 twice a day -Monitor with home Amsler -Wet Age related macular degeneration conversion precautions given. Patient instructed to call CHRISTINE if new distortion or blind spot arises 6. Dermatochalasis of both upper eyelids - ICD9: 374.87, ICD10: H02.831, H02.834 -Monitor -Offer eval with oculoplastics MD if patient desires. 7. Strabismus He voices understanding that he will still need to wear prism glasses after cataract surgery to optimize his vision and eliminate diplopia; he plans to get glasses updated about one month after having cataract surgery left eye. 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 [facility] 06-28-2024 History of Present illness Narrative ASSESSMENT/PLAN: Patient educated with patient and his nephew on all findings: 1. Nuclear senile cataract of left eye - ICD9: 366.16, ICD10: H25.12 (primary diagnosis) 2. Regular astigmatism, bilateral CORNEAL TOPOGRAPHY: left eye 3.6 diopters at 67 degrees, regular Mac OCT: Normal foveal contour, drusen both eyes and drusenoid Pigment epithelial detachment left eye; no Subretinal fluid; no intraretinal fluid in both eyes Cataract Presurgical Documentation Cataract: Right eye (OD) Current Visual Acuity Right Eye Distance CC 20/40 Left Eye Distance CC 20/70 Best Corrected Vision Left Eye 20/70 Glare Testing: Left Eye High 20/70 Visual Function: Elvira Bergman states that the decline in vision from the cataract impedes his abilities as listed in the HPI, as well as other activities of daily living. Elvira Bergman has confirmed that he is no longer able to function adequately on a day-to-day basis because of his current visual condition. Further, it is my medical opinion that the cataract is the primary cause, or at least a significantly contributory cause of his visual dysfunction. With uncomplicated cataract surgery and lens implantation, it is my expectation that his visual function and quality of life will improve, significantly. The risks, benefits, alternatives, personnel and complications of cataract surgery with lens implantation were discussed with Elvira Bergman in detail. he appeared to understand and asked that I proceed with plans for surgery. Offered Phacoemulsification cataract extraction with insertion of intraocular lens by Dr. Sprague OS only. Patient wishes to proceed with surgery. All questions were answered. A-scan to be performed pre-operatively. Referred by Dr. Cisse, Thank you for your kind referral! Allergies: see list - Aim: -2.00 OS to keep his spherical equivalent similar to his current prism glasses. He declines toric IOL. - Anesthesia: Topical with MAC - Diabetes Mellitus No - Blood thinner use Yes; He has risk of KAMLA - Flomax/alpha-mer? Yes. The patient has a risk of surgery being complicated by Flomax induced IFIS. Plan to use Viscoat, possibly phenylephrine and may need Malyugan ring. They have an increased risk of corneal edema postop. - Able to lie supine Yes - Wants versed Yes - Happy for prayer Yes - Warned of IOL-induced photopsias Yes - Advised there is no guarantee of freedom from glasses Yes; -Discussed possible increased sensitivity and starbursting when exposed to flickering lights such as LED and fluorescent lights after cataract surgery, which usually decreases with time. - Discussed toric Intraocular lens not covered by insurance Yes $1400 per eye - Toric candidate: Offered Toric lens if patient qualifies by Ultrasound measurements. Without the toric IOL, patient was told that he will still need to wear glasses to correct residual astigmatism at all distances. Even with toric IOL, we cannot guarantee no residual astigmatism. He declines toric IOLs since he knows he will still need to wear prism glasses tobacco cutter after having cataract surgery. - Contact lens use No - e-scribed eye drops - Literature regarding cataract and cataract extraction by phacoemulsification offered. - Co managing with Dr. Cisse 3. Pseudophakia, right eye - ICD9: V43.1, ICD10: Z96.1 - S/P PC IOL right eye (04/11/2024) Aim: -1.50 - Doing well 4. Exudative age-related macular degeneration of left eye with active choroidal neovascularization (HCC) - ICD9: 362.52, 362.16, ICD10: H35.3221 - Patient was cleared to proceed with cataract surgery in left eye by Dr. Post at exam on 06/20/2024. -He had Eylea injection with Dr. Post 06/20/24; continue getting injections with Dr. Post after having cataract surgery. -Discussed guarded visual prognosis with cataract surgery and the fact that Age related macular degeneration can continue to progress whether or not the patient has cataract surgery. 5. Nonexudative age-related macular degeneration, right eye, intermediate dry stage - ICD9: 362.51, ICD10: H35.3112 -continue AREDS2 twice a day -Monitor with home Amsler -Wet Age related macular degeneration conversion precautions given. Patient instructed to call CHRISTINE if new distortion or blind spot arises 6. Dermatochalasis of both upper eyelids - ICD9: 374.87, ICD10: H02.831, H02.834 -Monitor -Offer eval with oculoplastics MD if patient desires. 7. Strabismus He voices understanding that he will still need to wear prism glasses after cataract surgery to optimize his vision and eliminate diplopia; he plans to get glasses updated about one month after having cataract surgery left eye. 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 Cisse; offered cataract Surgery OS, schedule via his nephew, who lives in [place] and drives patients for his visits here. Comanage with Dr. Cisse. Copy of today's visit note was sent to Drs. Cisse and Sejal. Return for PAT, ultrasound, Likely did not have prior refractive surgery but please re-confirm this at ultrasound, Intraocular lens calculations, and surgery. Ramin Sprague MD The documentation for this note was completed by PRAKASH Martinez acting as a scribe for, and in the presence of, Dr. Rmain Spargue M.D. The documentation recorded by the scribe accurately reflects the service I personally performed and the decisions made by me. I have confirmed and edited as necessary the relevant HPI, ophthalmic history, ROS, and the neuro exam findings as obtained by others. I have seen and examined Elvira Bergman. I have discussed the case and the management of this patient's care with the Resident/Fellow, if applicable. I also have reviewed and agree with the assessment and plan as stated above and agree with all of its relevant components. Ramin Sprague MD documented in this encounter [facility] 06-20-2024 Note Date of Procedure 06/20/2024. Recruitment Consultant Information Drama Teacher: chelsy. OCT Macula Interpretation Right Eye Findings include Drusen, Drusenoid PED; Negative for Intraretinal fluid, Cystoid macular edema, Subretinal fluid. Left Eye Findings include Drusen, Drusenoid PED; Negative for Intraretinal fluid, Cystoid macular edema, Subretinal fluid. Interval Change Right Eye Stable. Left Eye Stable. [facility] 06-20-2024 Note HNO ID: [id number] Author: ARASH POST MD Service: ? Author Type: Physician Type: Progress Notes Filed: 06/20/2024 10:17 Note Text: Neovascular Age related macular degeneration, left eye -S/P Eylea last 8 weeks -OCT stable with no fluid -Eylea today Nonexudative Age related macular degeneration intermediate Stage, right eye -Continue AREDS2 twice a day -Wet Age related macular degeneration conversion precautions given. Patient instructed to call CHRISTINE if new distortion or blind spot arises Pseudophakia, right eye - Intraocular lens well-centered - Plan: observe Cataracts left eye -Appears visually significant -Follow up with Dr. Sprague. Clear from retina standpoint Follow Up: 10 weeks for DTI Eylea left eye. Dr. Sprague as scheduled I have confirmed and edited as necessary the relevant HPI, ophthalmic history, ROS, and exam findings as obtained by others. I have seen and examined this patient. I have discussed the case and the management of this patient's care with the Resident, if applicable. I also have reviewed and agree with the assessment and plan as stated above and agree with all of its relevant components. [facility] 06-20-2024 History of Present illness Narrative Neovascular Age related macular degeneration, left eye -S/P Eylea last 8 weeks -OCT stable with no fluid -Eylea today Nonexudative Age related macular degeneration intermediate Stage, right eye -Continue AREDS2 twice a day -Wet Age related macular degeneration conversion precautions given. Patient instructed to call CHRISTINE if new distortion or blind spot arises Pseudophakia, right eye - Intraocular lens well-centered - Plan: observe Cataracts left eye -Appears visually significant -Follow up with Dr. Sprague. Clear from retina standpoint Follow Up: 10 weeks for DTI Eylea left eye. Dr. Sprague as scheduled I have confirmed and edited as necessary the relevant HPI, ophthalmic history, ROS, and exam findings as obtained by others. I have seen and examined this patient. I have discussed the case and the management of this patient's care with the Resident, if applicable. I also have reviewed and agree with the assessment and plan as stated above and agree with all of its relevant components. documented in this encounter [facility] 06-20-2024 Note Date of Procedure 06/20/2024 [facility] Protocol Safety Checklist Sign In: Special equipment verified, A moment to CARE completed, Appropriate PPE verified, Patient name, date of , allergies and intended procedure verified. Provider Confirms: Intended patient and procedure match the source document, Consent documented and matches the intended procedure, Correct side/site marked visible. Relevant labs, photos, and/or imaging studies have been reviewed. Medications required for procedure verified. Fire risk assessed and interventions discussed. No implants. Anesthesia 2-4 drops Tetracaine 0.5%, 0.5 mL subconjunctival injection of 2% Lidocaine. Prep 5% Betadine. Injection Administration Medication: 2 mg aflibercept prefilled syringe 2 mg/0.05 mL Route: INTRAVITREAL, Site: Left Balance Wasted Residual medication less than 1 unit was discarded. Anterior Chamber Paracentesis No. Post Injection Evaluation Patient has at least hand motion vision. Post Procedure Medications None. Home Going Prescription None. Sign Out Sign out discussion completed, All instruments, equipment, and/or possible retained foreign bodies accounted for, Post-procedure follow up management communicated. No specimens. [facility] 05-03-2024 Telephone encounter Note Patient has been reminded to check with pharmacy 24 to 48hr after request. Pt is identified by name and birthdate: Yes Patient phones requesting refills as follows: Requested Prescriptions Pending Prescriptions Disp Refills prednisoLONE acetate (PRED FORTE) 1 % ophthalmic suspension Sig: Use one drop in operative eye as directed by Dr. Sprague starting tomorrow. Please review and advise. [facility] 05-03-2024 Miscellaneous Notes Patient has been reminded to check with pharmacy 24 to 48hr after request. Pt is identified by name and birthdate: Yes Patient phones requesting refills as follows: Requested Prescriptions Pending Prescriptions Disp Refills prednisoLONE acetate (PRED FORTE) 1 % ophthalmic suspension Sig: Use one drop in operative eye as directed by Dr. Sprague starting tomorrow. Please review and advise. documented in this encounter [facility] 05-03-2024 Telephone encounter Note Pt went to see at [facility] at the the one week follow up told the pt to start over with their eye drops. They are currently following the second week instructions 3 times a day. Pt stated they are almost out drops. Only enough for about the rest of the day. [facility] 05-03-2024 Miscellaneous Notes Pt went to see at [facility] at the the one week follow up told the pt to start over with their eye drops. They are currently following the second week instructions 3 times a day. Pt stated they are almost out drops. Only enough for about the rest of the day. documented in this encounter [facility] 04-25-2024 Note HNO ID: [id number] Author: ARASH POST MD Service: ? Author Type: Physician Type: Progress Notes Filed: 04/25/2024 10:56 Note Text: Neovascular Age related macular degeneration, left eye -S/P Eylea last 6 weeks -OCT shows significant improvement/resolution of subretinal fluid -Eylea today Nonexudative Age related macular degeneration intermediate Stage, right eye -Continue AREDS2 twice a day -Wet Age related macular degeneration conversion precautions given. Patient instructed to call CHRISTINE if new distortion or blind spot arises Pseudophakia, right eye - Intraocular lens well-centered - Plan: observe Cataracts left eye -Appears visually significant -Follow up with Dr. Sprague. Clear from retina standpoint Follow Up: 8 weeks for DTI Eylea left eye. Dr. Sprague next available I have confirmed and edited as necessary the relevant HPI, ophthalmic history, ROS, and exam findings as obtained by others. I have seen and examined this patient. I have discussed the case and the management of this patient's care with the Resident, if applicable. I also have reviewed and agree with the assessment and plan as stated above and agree with all of its relevant components. [facility] 04-25-2024 Note Date of Procedure 04/25/2024. Interpretation Right Eye Findings include Drusen, Drusenoid PED; Negative for Intraretinal fluid, Cystoid macular edema, Subretinal fluid. Left Eye Findings include PED, Drusen, Drusenoid PED; Negative for Intraretinal fluid, Cystoid macular edema, Subretinal fluid. Interval Change Right Eye Stable. Left Eye Better. [facility] 04-25-2024 Note Date of Procedure 04/25/2024 [facility] Protocol Safety Checklist Sign In: A moment to CARE completed, Special equipment verified, Appropriate PPE verified, Patient name, date of , allergies and intended procedure verified. Provider Confirms: Intended patient and procedure match the source document, Consent documented and matches the intended procedure, Correct side/site marked visible. Relevant labs, photos, and/or imaging studies have been reviewed. Medications required for procedure verified. Fire risk assessed and interventions discussed. No implants. Anesthesia 2-4 drops Tetracaine 0.5%, 0.5 mL subconjunctival injection of 2% Lidocaine. Prep 5% Betadine. Injection Administration Medication: 2 mg aflibercept prefilled syringe 2 mg/0.05 mL Route: INTRAVITREAL, Site: Left Balance Wasted Residual medication less than 1 unit was discarded. Anterior Chamber Paracentesis No. Post Injection Evaluation Patient has at least hand motion vision. Post Procedure Medications 5% Betadine. Home Going Prescription None. Sign Out Sign out discussion completed, All instruments, equipment, and/or possible retained foreign bodies accounted for, Post-procedure follow up management communicated. No specimens. 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 Patient instructed to call CHRISTINE if new distortion or blind spot arises Pseudophakia, right eye - Intraocular lens well-centered - Plan: observe Cataracts left eye -Appears visually significant -Follow up with Dr. Sprague. Clear from retina standpoint Follow Up: 8 weeks for DTI Eylea left eye. Dr. Sprague next available I have confirmed and edited as necessary the relevant HPI, ophthalmic history, ROS, and exam findings as obtained by others. I have seen and examined this patient. I have discussed the case and the management of this patient's care with the Resident, if applicable. I also have reviewed and agree with the assessment and plan as stated above and agree with all of its relevant components. documented in this encounter [facility] 04-12-2024 Note HNO ID: [id number] Author: ELISA CHI OD Service: ? Author Type: SURG NURSE Type: Progress Notes Filed: 04/12/2024 10:42 Note Text: ASSESSMENT/PLAN: 1. Pseudophakia - ICD9: V43.1, ICD10: Z96.1 (primary diagnosis) - 1 day PO S/P PC IOL right eye (04/11/2024) Aim: -1.50 The patient was instructed to.... - Use Ocuflox Drops in the operative eye 4 times a day for 3 days after surgery, then stop. - Use Prednisolone Acetate Drops in the operative eye 4 times a day for 7 days after surgery and then taper the Prednisolone Acetate over 15 days (decreasing by 1 drop every 5 days). Wear the eye shield at night over the operative eye while sleeping, refrain from rubbing or touching the eye, wear dark sunglasses while outside, not get any tap water in the eye, not to swim, not wear any eye makeup (if applicable), and refrain from heavy lifting for a total of two weeks after surgery. Use Artificial Tears four or more times daily as needed, starting 3 days after surgery to alleviate any dry eye symptoms. Anisometropia precautions were reviewed; can remove lens from eyeglasses if desired. May trial OTC readers until getting updated glasses. The signs and symptoms of a retinal tear/detachment (flashes, floaters, or change in peripheral vision) were reviewed with the patient as well as the signs and symptoms of infection (decreased vision, red eye, painful eye, or eyelid swelling). Call or return to our office immediately if any of these symptoms are present. Signs and symptoms of posterior capsular opacification were reviewed. Discussed possible eventual need for Yag laser posterior capsulotomy. 2. Nuclear senile cataract of left eye - ICD9: 366.16, ICD10: H25.11 - holding sx pending wet AMD management. Return to clinic 2-5 days VATA, refraction with Dr. Cisse; Dr. Post 04/25 for AMD I have confirmed and edited as necessary the relevant ophthalmic history, ROS, and the exam findings as obtained by others. I have seen and examined this patient. I have discussed the case and the management of this patient's care with the resident or fellow as appropriate. I also have reviewed and agree with the assessment and plan as stated above and agree with all of its relevant components. Elisa Chi, OD April 12, 2024 10:29 AM [facility] 04-12-2024 History of Present illness Narrative ASSESSMENT/PLAN: 1. Pseudophakia - ICD9: V43.1, ICD10: Z96.1 (primary diagnosis) - 1 day PO S/P PC IOL right eye (04/11/2024) Aim: -1.50 The patient was instructed to.... - Use Ocuflox Drops in the operative eye 4 times a day for 3 days after surgery, then stop. - Use Prednisolone Acetate Drops in the operative eye 4 times a day for 7 days after surgery and then taper the Prednisolone Acetate over 15 days (decreasing by 1 drop every 5 days). Wear the eye shield at night over the operative eye while sleeping, refrain from rubbing or touching the eye, wear dark sunglasses while outside, not get any tap water in the eye, not to swim, not wear any eye makeup (if applicable), and refrain from heavy lifting for a total of two weeks after surgery. Use Artificial Tears four or more times daily as needed, starting 3 days after surgery to alleviate any dry eye symptoms. Anisometropia precautions were reviewed; can remove lens from eyeglasses if desired. May trial OTC readers until getting updated glasses. The signs and symptoms of a retinal tear/detachment (flashes, floaters, or change in peripheral vision) were reviewed with the patient as well as the signs and symptoms of infection (decreased vision, red eye, painful eye, or eyelid swelling). Call or return to our office immediately if any of these symptoms are present. Signs and symptoms of posterior capsular opacification were reviewed. Discussed possible eventual need for Yag laser posterior capsulotomy. 2. Nuclear senile cataract of left eye - ICD9: 366.16, ICD10: H25.11 - holding sx pending wet AMD management. Return to clinic 2-5 days VATA, refraction with Dr. Cisse; Dr. Post 04/25 for AMD I have confirmed and edited as necessary the relevant ophthalmic history, ROS, and the exam findings as obtained by others. I have seen and examined this patient. I have discussed the case and the management of this patient's care with the resident or fellow as appropriate. I also have reviewed and agree with the assessment and plan as stated above and agree with all of its relevant components. Elisa Chi, CHRISTELLE April 12, 2024 10:29 AM documented in this encounter [facility] 03-14-2024 Note Date of Procedure 03/14/2024. Recruitment Consultant Information Drama Teacher: MACIE. Interpretation Right Eye Findings include Drusen, Drusenoid PED; Negative for Intraretinal fluid, Cystoid macular edema, Subretinal fluid. Left Eye Findings include Drusen, Drusenoid PED; Negative for Intraretinal fluid, Cystoid macular edema, Subretinal fluid. Interval Change Right Eye Stable. Left Eye Better. [facility] 03-14-2024 Note Date of Procedure 03/14/2024 [facility] Protocol Safety Checklist Sign In: Special equipment verified, A moment to CARE completed, Appropriate PPE verified, Patient name, date of , allergies and intended procedure verified. Provider Confirms: Intended patient and procedure match the source document, Consent documented and matches the intended procedure, Correct side/site marked visible. Relevant labs, photos, and/or imaging studies have been reviewed. Medications required for procedure verified. Fire risk assessed and interventions discussed. No implants. Anesthesia 2-4 drops Tetracaine 0.5%, 0.5 mL subconjunctival injection of 2% Lidocaine. Prep 5% Betadine. Injection Administration Medication: 2 mg aflibercept prefilled syringe 2 mg/0.05 mL Route: INTRAVITREAL, Site: Left Balance Wasted Residual medication less than 1 unit was discarded. Anterior Chamber Paracentesis No. Post Injection Evaluation Patient has at least hand motion vision. Post Procedure Medications None. Home Going Prescription None. Sign Out Sign out discussion completed, All instruments, equipment, and/or possible retained foreign bodies accounted for, Post-procedure follow up management communicated. No specimens. [facility] 03-14-2024 Note HNO ID: [id number] Author: TRINA PANIAGUA COA Service: ? Author Type: Spout Tender Type: Progress Notes Filed: 03/16/2024 09:08 Note Text: Confirmed Aim: -1.50 Right eye only at this time LONG DISCUSSION of Cataract extraction and Age related macular degeneration - Dr RAY came in and re discussed with patient No toric recommended due will need prism post Cataract extraction with Dr Cisse Written pre-op instructions regarding eye drops and care reviewed with patient. PRAKASH Amador March 14, 2024 8:26 AM [facility] 03-14-2024 Note Date of Procedure 03/14/2024. Recruitment Consultant Information Drama Teacher: trina. [facility] 03-14-2024 Note Date of Procedure 03/14/2024. Recruitment Consultant Information Drama Teacher: trina. Notes Measurements only - see Procedure Record under Scanned Documents for signed results. [facility] 03-14-2024 History of Present illness Narrative Confirmed Aim: -1.50 Right eye only at this time LONG DISCUSSION of Cataract extraction and Age related macular degeneration - Dr RAY came in and re discussed with patient No toric recommended due will need prism post Cataract extraction with Dr Cisse Written pre-op instructions regarding eye drops and care reviewed with patient. PRAKASH Amador March 14, 2024 8:26 AM documented in this encounter [facility] 03-14-2024 Note HNO ID: [id number] Author: ARASH POST MD Service: ? 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 Patient instructed to call CHRISTINE if new distortion or blind spot arises Cataracts both eyes -Appears visually significant both eyes -Scheduled for surgery with Dr. Sprague Follow Up: 6 weeks for DTI Eylea left eye I have confirmed and edited as necessary the relevant HPI, ophthalmic history, ROS, and exam findings as obtained by others. I have seen and examined this patient. I have discussed the case and the management of this patient's care with the Resident, if applicable. I also have reviewed and agree with the assessment and plan as stated above and agree with all of its relevant components. 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 Patient instructed to call CHRISTINE if new distortion or blind spot arises Cataracts both eyes -Appears visually significant both eyes -Scheduled for surgery with Dr. Sprague Follow Up: 6 weeks for DTI Eylea left eye I have confirmed and edited as necessary the relevant HPI, ophthalmic history, ROS, and exam findings as obtained by others. I have seen and examined this patient. I have discussed the case and the management of this patient's care with the Resident, if applicable. I also have reviewed and agree with the assessment and plan as stated above and agree with all of its relevant components. documented in this encounter [facility] 03-14-2024 Instructions Vinny Jewell APRN.EYEGLASS ASSEMBLER - 03/14/2024 7:25 AM EDT Images from the original note were not included. [facility] PATIENT PREOPERATIVE INSTRUCTIONS Ramin Sprague MD has scheduled you for your procedure at this surgery center: [facility]: [phone] --[address] [place] [address]. Please read below carefully for your personalized instructions. Arrival Time for Surgery: - The Surgery Center or hospital where you are having surgery will call the afternoon before surgery (or Tuesday for Tuesday surgery) with a scheduled arrival time. - If you have not heard by 4 pm, please contact the surgery center above. Please be aware that emergency situations arise, which may delay or change your surgical time. If this happens, we will notify you as soon as possible and regret any inconvenience Dietary Restrictions: - No solid food after midnight. - You may have 12 ounces of clear liquids (water, clear juices such as apple juice or gatorade, carbonated beverages, clear tea, black coffee, jello) until 2 hours before scheduled arrival at facility. - no milk / coffee creamer - no pulp juices Medications: Unless instructed differently below, stay on all of your medications until your surgery. Approved medications to take the morning of surgery with a sip of water: Atenolol(Tenormin), Amlodipine(Norvasc) If you start any new medications after today's visit, please contact the surgeon's office. Preoperative Instructions for Patient's with Diabetes Mellitus/ Prediabetes Oral/ Injectable Medication Instructions - Metformin - HOLD DAY OF SURGERY Glucotrol/Glipizide - HOLD DAY OF SURGERY Blood Thinning Medications: You do not need to hold blood thinners for cataract surgery Important Reminders: - If you are prescribed inhalers for breathing, continue using them. - Candy, mints, and tobacco products are NOT permitted the morning of surgery. - Hearing aids and glasses may be worn the morning of surgery. - NO jewelry, body piercings, makeup, hairpins or contacts are to be worn the day of surgery. - You may wear your partials/dentures, but you may be asked to remove them prior to you're procedure If you develop symptoms such as a fever, cold, or flu, or have other changes to your health within TWO DAYS of scheduled surgery or the morning of surgery, please contact the surgery center above. Personal Belongings: -Please have photo ID and insurance cards. -If you do not have a copy of advance directives on file with us, please bring a copy with you on the day of surgery. - Leave ALL valuables and money at home or with family members. For Outpatient Procedures: - YOU MUST HAVE A RESPONSIBLE AIRPLANE INSPECTOR TAKE YOU HOME. A CONSUMER LOAN UNDERWRITER OR LEARNING AND DEVELOPMENT ASSOCIATE CANNOT BE MADE A RESPONSIBLE AIRPLANE INSPECTOR. - We recommend that a responsible person stays with you overnight to take care of you. - You cannot stay in a hotel alone after outpatient surgery. You will not be permitted to have your surgery, if you do not have someone to take care of you. If you already have an Advance Directive, please fax a copy to [phone] or email to for it to be added to your chart. If you do not have an Advance Directive, you can find the appropriate form and more information at [email or web address]. We recommend that you complete the Advance Directive form found on the website and bring it with you the day of your surgery. It can be witnessed and scanned into your chart that day. Vinny Jewell APRN.CASSANDRA documented in this encounter [facility] 03-14-2024 History and physical note Images from the original note were not included. [facility] HISTORY AND PHYSICAL EXAMINATION SERVICE DATE: 03/14/2024 SERVICE TIME: 7:21 AM PRIMARY CARE PHYSICIAN: No primary care provider on file. REASON FOR VISIT: Elvira Bergman is a 83 year old male who is scheduled for Right - PHACOEMULSIFICATION CATARACT IMPLANT INTRAOCULAR LENS W/O ENDOSCOPIC CYCLOPHOTOCOAGULATION Right - OPHTHALMIC BIOMETRY BY PARTIAL COHERENCE INTERFEROMETRY W/INTRAOCULAR LENS POWER CALCULATION at the request of Dr. Ramin Sprague for consultation. My final recommendation will be communicated back to the requesting physician by way of shared medical record or letter. Assessment Benign prostatic hyperplasia without urinary obstruction Assessment: stable on Flomax Type 2 diabetes mellitus without complication (HCC) Assessment: stable on oral medication Following with PCP Pure hypercholesterolemia Assessment: stable on medication Essential hypertension Assessment: Stable on medication Today BP: 93/58 To take medication morning of surgery Persistent atrial fibrillation (HCC) Assessment: stable on Coumadin in NSR today Following with PCP Coronary atherosclerosis Assessment: stable with history of PCI on Coumadin Following with PCP Fung Activity Status Index: METS: Walk indoors, such as around the house (1.75 METs) Do light work around the house, such as dusting or washing dishes (2.70 METs) Take care of self; that is eating, dressing, bathing, using the toilet (2.75 METs) Walk a block or two on level ground (2.75 METs) Do moderate work around the house, such as vacuuming, sweeping floors, or carrying in groceries (3.50 METs) Climb a flight of stairs or walk up a hill (5.50 METs) DASI Score: 18.95 Patient denies any chest pain or undue shortness of breath with the above physical activity. Patient is totally dependent. Clinical Frailty Scale: 4. Apparently vulnerable STOP-Bang Score: Has or is being treated for high blood pressure Patient over 50 years old Male patient Denies snoring loudly Denies feeling tired, fatigued, or sleepy during the daytime Has not been observed to stop breathing or choking/gasping during sleep BMI less than or equal to 35 kg/m^2 Does not have a large neck STOP-Bang Score: 3 [id number] Score: Age: >=75 Sex: male CHF history: No Hypertension history: Yes Stroke/TIA/thromboembolism history: No Vascular disease history: Yes Diabetes history: Yes [id number] Score: 5 ARISCAT Score: Age: >80 Preoperative SpO2: >=96% Preoperative anemia: Yes Surgical incision: peripheral Duration of surgery: <2 hrs Emergency procedure: No ARISCAT Score: ANESTHESIA FINDINGS: Intubation History: No history of difficult intubation. No abnormal airway history Significant Anesthesia Considerations: none Airway History: No history of difficult airway No abnormal airway history I - PHYSICAL EVALUATION AIRWAY Patient intubated: No. Tracheostomy tube not present Mallampati: II. TM distance: >3 FB. Neck ROM: full ROM without neurological symptoms. Mouth opening: adequate. Short neck: no. Thick neck: no Resendez present: no Lip Bite Test: II Microretrognathia/Micronagthia/Rece ssed Chin: No DENTAL Dental findings: edentulous. II - ANESTHESIA PLAN Anesthetic plan additional comments: *PACC/TCI - anesthesia choice. Beta Mer Monitoring Plan Post Procedure Analgesic Plan Prepared for surgery: This patient is optimally prepared for surgery. CONSULTS: Patient does not require consults for optimization at this time. The Following Tests/Procedures Have Been Initiated: Labs not indicated per PACC protocol, EKG not indicated per PACC protocol Planned Anesthetic: Per anesthesia choice Subjective CHIEF COMPLAINT: Change of vision HPI: 83 year old male with change of vision for one year. Patient states that he has decreased vision,difficulty with watching television,double vision(has prism in glasses, depend on which way his head is turned if its side by side or oe on top of nother. Can straighten out with his head in certain positions),glare . No alleviating factors. No pain today REVIEW OF SYSTEMS: PAIN ASSESSMENT: General: No weight loss, malaise or fevers. Neuro: No history of TIA's, stroke, CHALK TESTER tumor, impaired sensorium, hemiplegia, paraplegia or quadraplegia. No neurological symptoms or problems. Respiratory: No history of current cough or dyspnea, or pneumonia in the past 6 weeks. No history of respiratory/pulmonary symptoms or problems. Cardiovascular: Positive for HTN, HLD +A-fib + PCI with stent on Coumadin Denies any chest pain, SOB. Denies rest pain, gangrene or revascularization/amputation for PVD GI: No history of GI symptoms or problems. No history of esophageal varices, recent ascites, or ETOH greater than 2 drinks per day. : No history of dysuria, frequency or incontinence,, stones or chronic kidney disease, No difficulty urinating, nocturia > 1 time per night or hematuria, Positive for BPH Endocrine: Diabetes Mellitus on oral agent Hematology: Chronic anti-coagulation / platelet meds (Coumadin) Oncology: No history of CA metastasis, chemo within 30 days, or radiotherapy within 90 days. Has not lost 10% of body wt in 6 months. No history of oncological symptoms or problems. Psych: No history of psychiatric symptoms or problems. Musculoskeletal: Negative for joint pain or swelling, back pain or muscle pain. Skin: Negative for lesions, rash and itching. 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 Chronic Systolic Heart Failure (Hcc) Congestive Heart Failure (Hcc) Coronary Atherosclerosis Essential Hypertension Benign Prostatic Hyperplasia Without Urinary Obstruction Persistent Atrial Fibrillation (Hcc) Pure Hypercholesterolemia Type 2 Diabetes Mellitus Without Complication (Hcc) Covid Immunization Dates Overdue - Covid-19 Vaccine () Overdue since 01/22/2024 05/31/2022 Imm Admin: COVID-19 vaccine, age 12+ yr, bivalent (MODERNA) 12/07/2021 Imm Admin: COVID-19 original vaccine, full dose, monovalent (MODERNA) 04/08/2021 Imm Admin: COVID-19 original vaccine, full dose, monovalent (MODERNA) 07/14/2020 Imm Admin: COVID-19 original vaccine, full dose, monovalent (MODERNA) 06/16/2020 Imm Admin: COVID-19 original vaccine, full dose, monovalent (MODERNA) Only the first 5 history entries have been loaded, but more history exists. 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 Taking Yes atorvastatin (LIPITOR) 80 mg tablet Take 1 tablet by mouth every afternoon. Taking Yes finasteride (PROSCAR) 5 mg tablet Take 1 tablet by mouth every afternoon. Taking Yes furosemide (LASIX) 40 mg tablet TAKE 1 TABLET BY MOUTH ONCE EVERY MORNING 30 Taking Yes glipiZIDE (GLUCOTROL) 5 mg tablet Take 1 tablet by mouth every 12 hours. Taking Yes lisinopril (ZESTRIL) 20 mg tablet Take 1 tablet by mouth every afternoon. Taking Yes metFORMIN (GLUCOPHAGE) 500 mg tablet Take 1 tablet by mouth every 12 hours. Taking Yes amLODIPine (NORVASC) 2.5 mg tablet Taking Yes vit C/E/zinc ox/sara/lut/zeax (ICAPS AREDS2 ORAL) Take by mouth. Taking Yes ofloxacin (OCUFLOX) 0.3 % ophthalmic solution 1 Drop four times daily. One drop in the OPERATIVE EYE only four times a day starting the day before surgery Taking Yes warfarin (COUMADIN) 3 mg tablet Take by mouth. Taking Yes nitroglycerin sublingual (NITROQUICK) 0.4 mg SL tablet Dissolve under the tongue. Taking Yes KLOR-CON M20 20 mEq tablet Take 20 mEq by mouth two times a day. Taking Yes tamsulosin (FLOMAX) 0.4 mg Take 0.4 mg by mouth once daily. Taking Yes No medication comments found. ALLERGIES Allergen Reactions Apixaban Shortness of Breath Shortness of breath Objective PHYSICAL EXAM: VITALS: BP 93/58 Pulse 64 Temp 97.5 Resp 16 Ht 6' 0 (1.83m) Wt 180 lb 12.4 oz (82.0kg) SpO2 98% BMI 24.51 kg/(m^2). General: Alert and oriented, No acute distress Skin: Normal color, no rash, no lesions. Cardiovascular: Normal S1 & S2, no rubs, murmurs or gallops. No JVD. Pulse regular. Lungs: Normal breath sounds, no wheezes or crackles. Abdomen: Soft, non-tender, no rigidity., Positive bowel sounds Extremities: No deformity, no edema or tenderness, no joint swelling or clubbing. Neurological: Normal cognition and motor skills. Gait normal. No weakness or sensory deficit. Diagnostic tests reviewed for today's visit: Lab Value Units Date High Low HB No results within date range. HCT No results within date range. WBC No results within date range. PLT No results within date range. NA No results within date range. K No results within date range. GLUC No results within date range. BUN No results within date range. CREAT No results within date range. PTSEC No results within date range. INR No results within date range. APTT No results within date range. ALT No results within date range. AST No results within date range. TBILI No results within date range. TSH No results within date range. Lab Value Units Date High Low HCGQT No results within date range. UHCG No results within date range. HCG, BODY* No results within date range. Lab Value Units Date High Low ABORHD No results within date range. ABSCREEN No results within date range. EKG 12 Lead Component Ref Range & Units 8 mo ago Ventricular Rate BPM 53 Atrial Rate BPM 300 QRS Duration ms 156 Q-T Interval ms 492 QTc Calculation (Bazett) ms 461 R Debary degrees -47 T Debary degrees 178 Resulting Agency [facility] Narrative Performed by [facility] Atrial fibrillation with slow ventricular response Left axis deviation Left bundle branch block Abnormal ECG No previous ECGs available Procedure Note Jorge L Shaver MD - 07/15/2023 Atrial fibrillation with slow ventricular response Left axis deviation Left bundle branch block Abnormal ECG No previous ECGs available No results found for: HBA1C No new labs or tests Instructions Given to Patient: Instructions located in the after visit summary. Patient given verbal and written preop instructions and voices comprehension and compliance. SIGNATURE: Vinny Jewell APRN.CNP PATIENT NAME: Elvira Bergman DATE: 03/14/2024 TIME: 7:27 AM T [facility] 03-14-2024 History and physical note Images from the original note were not included. [facility] HISTORY AND PHYSICAL EXAMINATION SERVICE DATE: 03/14/2024 SERVICE TIME: 7:21 AM PRIMARY CARE PHYSICIAN: No primary care provider on file. REASON FOR VISIT: Elvira Bergman is a 83 year old male who is scheduled for Right - PHACOEMULSIFICATION CATARACT IMPLANT INTRAOCULAR LENS W/O ENDOSCOPIC CYCLOPHOTOCOAGULATION Right - OPHTHALMIC BIOMETRY BY PARTIAL COHERENCE INTERFEROMETRY W/INTRAOCULAR LENS POWER CALCULATION at the request of Dr. Ramin Sprague for consultation. My final recommendation will be communicated back to the requesting physician by way of shared medical record or letter. Assessment Benign prostatic hyperplasia without urinary obstruction Assessment: stable on Flomax Type 2 diabetes mellitus without complication (HCC) Assessment: stable on oral medication Following with PCP Pure hypercholesterolemia Assessment: stable on medication Essential hypertension Assessment: Stable on medication Today BP: 93/58 To take medication morning of surgery Persistent atrial fibrillation (HCC) Assessment: stable on Coumadin in NSR today Following with PCP Coronary atherosclerosis Assessment: stable with history of PCI on Coumadin Following with PCP Fung Activity Status Index: METS: Walk indoors, such as around the house (1.75 METs) Do light work around the house, such as dusting or washing dishes (2.70 METs) Take care of self; that is eating, dressing, bathing, using the toilet (2.75 METs) Walk a block or two on level ground (2.75 METs) Do moderate work around the house, such as vacuuming, sweeping floors, or carrying in groceries (3.50 METs) Climb a flight of stairs or walk up a hill (5.50 METs) DASI Score: 18.95 Patient denies any chest pain or undue shortness of breath with the above physical activity. Patient is totally dependent. Clinical Frailty Scale: 4. Apparently vulnerable STOP-Bang Score: Has or is being treated for high blood pressure Patient over 50 years old Male patient Denies snoring loudly Denies feeling tired, fatigued, or sleepy during the daytime Has not been observed to stop breathing or choking/gasping during sleep BMI less than or equal to 35 kg/m^2 Does not have a large neck STOP-Bang Score: 3 [id number] Score: Age: >=75 Sex: male CHF history: No Hypertension history: Yes Stroke/TIA/thromboembolism history: No Vascular disease history: Yes Diabetes history: Yes [id number] Score: 5 ARISCAT Score: Age: >80 Preoperative SpO2: >=96% Preoperative anemia: Yes Surgical incision: peripheral Duration of surgery: <2 hrs Emergency procedure: No ARISCAT Score: ANESTHESIA FINDINGS: Intubation History: No history of difficult intubation. No abnormal airway history Significant Anesthesia Considerations: none Airway History: No history of difficult airway No abnormal airway history I - PHYSICAL EVALUATION AIRWAY Patient intubated: No. Tracheostomy tube not present Mallampati: II. TM distance: >3 FB. Neck ROM: full ROM without neurological symptoms. Mouth opening: adequate. Short neck: no. Thick neck: no Resendez present: no Lip Bite Test: II Microretrognathia/Micronagthia/Rece ssed Chin: No DENTAL Dental findings: edentulous. II - ANESTHESIA PLAN Anesthetic plan additional comments: *PACC/TCI - anesthesia choice. Beta Mer Monitoring Plan Post Procedure Analgesic Plan Prepared for surgery: This patient is optimally prepared for surgery. CONSULTS: Patient does not require consults for optimization at this time. The Following Tests/Procedures Have Been Initiated: Labs not indicated per PACC protocol, EKG not indicated per PACC protocol Planned Anesthetic: Per anesthesia choice Subjective CHIEF COMPLAINT: Change of vision HPI: 83 year old male with change of vision for one year. Patient states that he has decreased vision,difficulty with watching television,double vision(has prism in glasses, depend on which way his head is turned if its side by side or oe on top of nother. Can straighten out with his head in certain positions),glare . No alleviating factors. No pain today REVIEW OF SYSTEMS: PAIN ASSESSMENT: General: No weight loss, malaise or fevers. Neuro: No history of TIA's, stroke, CHALK TESTER tumor, impaired sensorium, hemiplegia, paraplegia or quadraplegia. No neurological symptoms or problems. Respiratory: No history of current cough or dyspnea, or pneumonia in the past 6 weeks. No history of respiratory/pulmonary symptoms or problems. Cardiovascular: Positive for HTN, HLD +A-fib + PCI with stent on Coumadin Denies any chest pain, SOB. Denies rest pain, gangrene or revascularization/amputation for PVD GI: No history of GI symptoms or problems. No history of esophageal varices, recent ascites, or ETOH greater than 2 drinks per day. : No history of dysuria, frequency or incontinence,, stones or chronic kidney disease, No difficulty urinating, nocturia > 1 time per night or hematuria, Positive for BPH Endocrine: Diabetes Mellitus on oral agent Hematology: Chronic anti-coagulation / platelet meds (Coumadin) Oncology: No history of CA metastasis, chemo within 30 days, or radiotherapy within 90 days. Has not lost 10% of body wt in 6 months. No history of oncological symptoms or problems. Psych: No history of psychiatric symptoms or problems. Musculoskeletal: Negative for joint pain or swelling, back pain or muscle pain. Skin: Negative for lesions, rash and itching. 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 Chronic Systolic Heart Failure (Hcc) Congestive Heart Failure (Hcc) Coronary Atherosclerosis Essential Hypertension Benign Prostatic Hyperplasia Without Urinary Obstruction Persistent Atrial Fibrillation (Hcc) Pure Hypercholesterolemia Type 2 Diabetes Mellitus Without Complication (Hcc) Covid Immunization Dates Overdue - Covid-19 Vaccine () Overdue since 01/22/2024 05/31/2022 Imm Admin: COVID-19 vaccine, age 12+ yr, bivalent (MODERNA) 12/07/2021 Imm Admin: COVID-19 original vaccine, full dose, monovalent (MODERNA) 04/08/2021 Imm Admin: COVID-19 original vaccine, full dose, monovalent (MODERNA) 07/14/2020 Imm Admin: COVID-19 original vaccine, full dose, monovalent (MODERNA) 06/16/2020 Imm Admin: COVID-19 original vaccine, full dose, monovalent (MODERNA) Only the first 5 history entries have been loaded, but more history exists. 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 Taking Yes atorvastatin (LIPITOR) 80 mg tablet Take 1 tablet by mouth every afternoon. Taking Yes finasteride (PROSCAR) 5 mg tablet Take 1 tablet by mouth every afternoon. Taking Yes furosemide (LASIX) 40 mg tablet TAKE 1 TABLET BY MOUTH ONCE EVERY MORNING 30 Taking Yes glipiZIDE (GLUCOTROL) 5 mg tablet Take 1 tablet by mouth every 12 hours. Taking Yes lisinopril (ZESTRIL) 20 mg tablet Take 1 tablet by mouth every afternoon. Taking Yes metFORMIN (GLUCOPHAGE) 500 mg tablet Take 1 tablet by mouth every 12 hours. Taking Yes amLODIPine (NORVASC) 2.5 mg tablet Taking Yes vit C/E/zinc ox/sara/lut/zeax (ICAPS AREDS2 ORAL) Take by mouth. Taking Yes ofloxacin (OCUFLOX) 0.3 % ophthalmic solution 1 Drop four times daily. One drop in the OPERATIVE EYE only four times a day starting the day before surgery Taking Yes warfarin (COUMADIN) 3 mg tablet Take by mouth. Taking Yes nitroglycerin sublingual (NITROQUICK) 0.4 mg SL tablet Dissolve under the tongue. Taking Yes KLOR-CON M20 20 mEq tablet Take 20 mEq by mouth two times a day. Taking Yes tamsulosin (FLOMAX) 0.4 mg Take 0.4 mg by mouth once daily. Taking Yes No medication comments found. ALLERGIES Allergen Reactions Apixaban Shortness of Breath Shortness of breath Objective PHYSICAL EXAM: VITALS: BP 93/58 Pulse 64 Temp 97.5 Resp 16 Ht 6' 0 (1.83m) Wt 180 lb 12.4 oz (82.0kg) SpO2 98% BMI 24.51 kg/(m^2). General: Alert and oriented, No acute distress Skin: Normal color, no rash, no lesions. Cardiovascular: Normal S1 & S2, no rubs, murmurs or gallops. No JVD. Pulse regular. Lungs: Normal breath sounds, no wheezes or crackles. Abdomen: Soft, non-tender, no rigidity., Positive bowel sounds Extremities: No deformity, no edema or tenderness, no joint swelling or clubbing. Neurological: Normal cognition and motor skills. Gait normal. No weakness or sensory deficit. Diagnostic tests reviewed for today's visit: Lab Value Units Date High Low HB No results within date range. HCT No results within date range. WBC No results within date range. PLT No results within date range. NA No results within date range. K No results within date range. GLUC No results within date range. BUN No results within date range. CREAT No results within date range. PTSEC No results within date range. INR No results within date range. APTT No results within date range. ALT No results within date range. AST No results within date range. TBILI No results within date range. TSH No results within date range. Lab Value Units Date High Low HCGQT No results within date range. UHCG No results within date range. HCG, BODY* No results within date range. Lab Value Units Date High Low ABORHD No results within date range. ABSCREEN No results within date range. EKG 12 Lead Component Ref Range & Units 8 mo ago Ventricular Rate BPM 53 Atrial Rate BPM 300 QRS Duration ms 156 Q-T Interval ms 492 QTc Calculation (Bazett) ms 461 R Debary degrees -47 T Debary degrees 178 Resulting Agency [facility] Narrative Performed by [facility] Atrial fibrillation with slow ventricular response Left axis deviation Left bundle branch block Abnormal ECG No previous ECGs available Procedure Note Jorge L Shaver MD - 07/15/2023 Atrial fibrillation with slow ventricular response Left axis deviation Left bundle branch block Abnormal ECG No previous ECGs available No results found for: HBA1C No new labs or tests Instructions Given to Patient: Instructions located in the after visit summary. Patient given verbal and written preop instructions and voices comprehension and compliance. SIGNATURE: Vinny Jewell APRN.CNP PATIENT NAME: Elvira Bergman DATE: 03/14/2024 TIME: 7:27 AM documented in this encounter [facility] 02-23-2024 Note HNO ID: [id number] Author: RAMIN SPRAGUE MD Service: ? Author Type: Physician Type: Progress Notes Filed: 02/23/2024 14:03 Note Text: ASSESSMENT/PLAN: Patient educated with patient and his son on all findings: 1. Nuclear senile cataract of right eye - ICD9: 366.16, ICD10: H25.11 (primary diagnosis) 2. Nuclear senile cataract of left eye - ICD9: 366.16, ICD10: H25.12 3. Regular astigmatism, bilateral CORNEAL TOPOGRAPHY: right eye 2.5 diopters at 133 degrees, regular left eye 3.1 diopters at 68 degrees, regular Mac OCT: Normal foveal contour, right eye drusen and drusenoid Pigment epithelial detachment, left eye drusen, drusenoid Pigment epithelial detachment and Subretinal fluid; no intraretinal fluid in both eyes Cataract Presurgical Documentation Cataract: Right eye (OD) Current Visual Acuity Right Eye Distance CC 20/50 Left Eye Distance CC 20/70 Best Corrected Vision Right Eye 20/50 Best Corrected Vision Left Eye 20/70 Glare Testing: Right Eye High BCVA 20/50 Left Eye High 20/70 Visual Function: Elvira Bergman states that the decline in vision from the cataract impedes his abilities as listed in the HPI, as well as other activities of daily living. Elvira Bergman has confirmed that he is no longer able to function adequately on a day-to-day basis because of his current visual condition. Further, it is my medical opinion that the cataract is the primary cause, or at least a significantly contributory cause of his visual dysfunction. With uncomplicated cataract surgery and lens implantation, it is my expectation that his visual function and quality of life will improve, significantly. The risks, benefits, alternatives, personnel and complications of cataract surgery with lens implantation were discussed with Elvira Bergman in detail. he appeared to understand and asked that I proceed with plans for surgery. Offered Phacoemulsification cataract extraction with insertion of intraocular lens by Dr. Sprague OD only at this time, then OS once cleared by Dr. Post. Patient wishes to proceed with surgery. All questions were answered. A-scan to be performed pre-operatively. Referred by Dr. Cisse, Thank you for your kind referral! Allergies: see list - Aim: -1.50 OD to keep spherical equivalent similar to PC; He voices understanding that he will need to continue to wear prism glasses tobacco cutter to correct diplopia and to correct residual astigmatism; recommend waiting at least one month after he has cataract surgery in his second eye before updating his glasses. - Anesthesia: Topical with MAC - Diabetes Mellitus No - Blood thinner use Yes; He has risk of KAMLA - Flomax/alpha-mer? Yes. The patient has a risk of surgery being complicated by Flomax induced IFIS. Plan to use Viscoat, possibly phenylephrine and may need Malyugan ring. They have an increased risk of corneal edema postop. - Able to lie supine Yes - Wants versed Yes - Happy for prayer Yes - Warned of IOL-induced photopsias Yes - Advised there is no guarantee of freedom from glasses Yes; -Discussed possible increased sensitivity and starbursting when exposed to flickering lights such as LED and fluorescent lights after cataract surgery, which usually decreases with time. - Discussed toric Intraocular lens not covered by insurance Yes $1400 per eye - Toric candidate: Offered Toric lens if patient qualifies by Ultrasound measurements. Without the toric IOL, patient was told that he will still need to wear glasses to correct residual astigmatism at all distances. Even with toric IOL, we cannot guarantee no residual astigmatism. He declines toric IOLs since he knows he will still need to wear prism glasses tobacco cutter after having cataract surgery. - Contact lens use No - e-scribed eye drops - Literature regarding cataract and cataract extraction by phacoemulsification offered. - Co managing with Dr. Cisse 4. Exudative age-related macular degeneration of left eye with active choroidal neovascularization (HCC) - ICD9: 362.52, 362.16, ICD10: H35.3221 -Currently being treated with Dr. Post. -Hold on cataract surgery left eye until cleared by Dr. 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 Nonexudative age-related macular degeneration, right eye, intermediate dry stage - ICD9: 362.51, ICD10: H35.3112 -Start AREDS2 twice a day -Monitor with home Amsler -Wet Age related macular degeneration conversion precautions given. Patient instructed to call CHRISTINE if new distortion or blind spot arises 6. Dermatochalasis of both upper eyelids - ICD9: 374.87, ICD10: H02.831, H02.834 -Monitor -Offereval with oculoplastics MD if patient desires. 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 Cisse; offered cataract Surgery OD (then OS once cleared by Dr. Post). Comanage with (more content not included)... [facility] 02-23-2024 History of Present illness Narrative ASSESSMENT/PLAN: Patient educated with patient and his son on all findings: 1. Nuclear senile cataract of right eye - ICD9: 366.16, ICD10: H25.11 (primary diagnosis) 2. Nuclear senile cataract of left eye - ICD9: 366.16, ICD10: H25.12 3. Regular astigmatism, bilateral CORNEAL TOPOGRAPHY: right eye 2.5 diopters at 133 degrees, regular left eye 3.1 diopters at 68 degrees, regular Mac OCT: Normal foveal contour, right eye drusen and drusenoid Pigment epithelial detachment, left eye drusen, drusenoid Pigment epithelial detachment and Subretinal fluid; no intraretinal fluid in both eyes Cataract Presurgical Documentation Cataract: Right eye (OD) Current Visual Acuity Right Eye Distance CC 20/50 Left Eye Distance CC 20/70 Best Corrected Vision Right Eye 20/50 Best Corrected Vision Left Eye 20/70 Glare Testing: Right Eye High BCVA 20/50 Left Eye High 20/70 Visual Function: Elvira Bergman states that the decline in vision from the cataract impedes his abilities as listed in the HPI, as well as other activities of daily living. Elvira Bergman has confirmed that he is no longer able to function adequately on a day-to-day basis because of his current visual condition. Further, it is my medical opinion that the cataract is the primary cause, or at least a significantly contributory cause of his visual dysfunction. With uncomplicated cataract surgery and lens implantation, it is my expectation that his visual function and quality of life will improve, significantly. The risks, benefits, alternatives, personnel and complications of cataract surgery with lens implantation were discussed with Elvira Bergman in detail. he appeared to understand and asked that I proceed with plans for surgery. Offered Phacoemulsification cataract extraction with insertion of intraocular lens by Dr. Sprague OD only at this time, then OS once cleared by Dr. Post. Patient wishes to proceed with surgery. All questions were answered. A-scan to be performed pre-operatively. Referred by Dr. Cisse, Thank you for your kind referral! Allergies: see list - Aim: -1.50 OD to keep spherical equivalent similar to PC; He voices understanding that he will need to continue to wear prism glasses tobacco cutter to correct diplopia and to correct residual astigmatism; recommend waiting at least one month after he has cataract surgery in his second eye before updating his glasses. - Anesthesia: Topical with MAC - Diabetes Mellitus No - Blood thinner use Yes; He has risk of KAMLA - Flomax/alpha-mer? Yes. The patient has a risk of surgery being complicated by Flomax induced IFIS. Plan to use Viscoat, possibly phenylephrine and may need Malyugan ring. They have an increased risk of corneal edema postop. - Able to lie supine Yes - Wants versed Yes - Happy for prayer Yes - Warned of IOL-induced photopsias Yes - Advised there is no guarantee of freedom from glasses Yes; -Discussed possible increased sensitivity and starbursting when exposed to flickering lights such as LED and fluorescent lights after cataract surgery, which usually decreases with time. - Discussed toric Intraocular lens not covered by insurance Yes $1400 per eye - Toric candidate: Offered Toric lens if patient qualifies by Ultrasound measurements. Without the toric IOL, patient was told that he will still need to wear glasses to correct residual astigmatism at all distances. Even with toric IOL, we cannot guarantee no residual astigmatism. He declines toric IOLs since he knows he will still need to wear prism glasses tobacco cutter after having cataract surgery. - Contact lens use No - e-scribed eye drops - Literature regarding cataract and cataract extraction by phacoemulsification offered. - Co managing with Dr. Cisse 4. Exudative age-related macular degeneration of left eye with active choroidal neovascularization (HCC) - ICD9: 362.52, 362.16, ICD10: H35.3221 -Currently being treated with Dr. Post. -Hold on cataract surgery left eye until cleared by Dr. 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 Nonexudative age-related macular degeneration, right eye, intermediate dry stage - ICD9: 362.51, ICD10: H35.3112 -Start AREDS2 twice a day -Monitor with home Amsler -Wet Age related macular degeneration conversion precautions given. Patient instructed to call CHRISTINE if new distortion or blind spot arises 6. Dermatochalasis of both upper eyelids - ICD9: 374.87, ICD10: H02.831, H02.834 -Monitor -Offereval with oculoplastics MD if patient desires. 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 Cisse; offered cataract Surgery OD (then OS once cleared by Dr. Post). Comanage with Dr. Cisse. Copy of today's visit note was sent to Drs. Cisse and Sejal. Return for PAT, ultrasound, Likely did not have prior refractive surgery but please re-confirm this at ultrasound, Intraocular lens calculations, and surgery. Ramin Sprague MD The documentation for this note was completed by PRAKASH Martinez acting as a scribe for, and in the presence of, Dr. Ramin Sprague M.D. 02/23/24 The documentation recorded by the scribe accurately reflects the service I personally performed and the decisions made by me. I have confirmed and edited as necessary the relevant HPI, ophthalmic history, ROS, and the neuro exam findings as obtained by others. I have seen and examined Elvira Bergman. I have discussed the case and the management of this patient's care with the Resident/Fellow, if applicable. I also have reviewed and agree with the assessment and plan as stated above and agree with all of its relevant components. Ramin Sprague MD 02/23/24 documented in this encounter [facility] 02-15-2024 Note Date of Procedure 02/15/2024 [place] Protocol Safety Checklist Sign In: Special equipment verified, A moment to CARE completed, Appropriate PPE verified, Patient name, date of , allergies and intended procedure verified. Provider Confirms: Intended patient and procedure match the source document, Consent documented and matches the intended procedure, Correct side/site marked visible. Relevant labs, photos, and/or imaging studies have been reviewed. Medications required for procedure verified. Fire risk assessed and interventions discussed. No implants. Anesthesia 2-4 drops Tetracaine 0.5%, 0.5 mL subconjunctival injection of 2% Lidocaine. Prep 5% Betadine. Injection Administration Medication: 2 mg aflibercept prefilled syringe 2 mg/0.05 mL Route: INTRAVITREAL, Site: Left Balance Wasted Residual medication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 04/11/24 Lead Developer Relationship Specialty Start Date End Date Bridget Farley MD [address] [place] [address] PCP - General Family Medicine 04/11/24 Lead Developer Relationship Specialty Start Date End Date Bridget Farley MD [address] [place] [address] PCP - General Family Medicine 04/11/24 Lead Developer Relationship Specialty Start Date End Date Bridget Farley MD [address] [place] [id number] PCP - General Family Medicine 04/11/24 Goals (unrecognized section and content) Goals may be documented in a n alternate section Source Comments (unrecognize d section and content) In the event this informatio n is protected by the Federal Confidentiality of Alcohol and Drug Abuse Patient Records regulations: The Federal rules restrict any use of the information to criminally investigate or prosecute any alcohol or drug abuse patient.[facility] the event this information is protected by the Federal Confidentiality of Alcohol and Drug Abuse Patient Records regulations: The Federal rules restrict any use of the information to criminally investigate or prosecute any alcohol or drug abuse patient.[facility] the event this information is protected by the Federal Confidentiality of Alcohol and Drug Abuse Patient Records regulations: The Federal rules restrict any use of the information to criminally investigate or prosecute any alcohol or drug abuse patient.[facility] the event this information is protected by the Federal Confidentiality of Alcohol and Drug Abuse Patient Records regulations: The Federal rules restrict any use of the information to criminally investigate or prosecute any alcohol or drug abuse patient.[facility] the event this information is protected by the Federal Confidentiality of Alcohol and Drug Abuse Patient Records regulations: The Federal rules restrict any use of the information to criminally investigate or prosecute any alcohol or drug abuse patient.[facility] the event this information is protected by the Federal Confidentiality of Alcohol and Drug Abuse Patient Records regulations: The Federal rules restrict any use of the information to criminally investigate or prosecute any alcohol or drug abuse patient.[facility] the event this information is protected by the Federal Confidentiality of Alcohol and Drug Abuse Patient Records regulations: The Federal rules restrict any use of the information to criminally investigate or prosecute any alcohol or drug abuse patient.[facility] the event this information is protected by the Federal Confidentiality of Alcohol and Drug Abuse Patient Records regulations: The Federal rules restrict any use of the information to criminally investigate or prosecute any alcohol or drug abuse patient.[facility] the event this information is protected by the Federal Confidentiality of Alcohol and Drug Abuse Patient Records regulations: The Federal rules restrict any use of the information to criminally investigate or prosecute any alcohol or drug abuse patient.[facility] the event this information is protected by the Federal Confidentiality of Alcohol and Drug Abuse Patient Records regulations: The Federal rules restrict any use of the information to criminally investigate or prosecute any alcohol or drug abuse patient.[facility] the event this information is protected by the Federal Confidentiality of Alcohol and Drug Abuse Patient Records regulations: The Federal rules restrict any use of the information to criminally investigate or prosecute any alcohol or drug abuse patient.[facility] the event this information is protected by the Federal Confidentiality of Alcohol and Drug Abuse Patient Records regulations: The Federal rules restrict any use of the information to criminally investigate or prosecute any alcohol or drug abuse patient.[place] the event this information is protected by the Federal Confidentiality of Alcohol and Drug Abuse Patient Records regulations: The Federal rules restrict any use of the information to criminally investigate or prosecute any alcohol or drug abuse patient.[place]In the event this information is protected by the Federal Confidentiality of Alcohol and Drug Abuse Patient Records regulations: The Federal rules restrict any use of the information to criminally investigate or prosecute any alcohol or drug abuse patient.[place] the event this information is protected by the Federal Confidentiality of Alcohol and Drug Abuse Patient Records regulations: The Federal rules restrict any use of the information to criminally investigate or prosecute any alcohol or drug abuse patient.[facility] Reason for Visit (unrecogniz ed section and content) Reason Comments Retinal Evaluation Reason Comments Cataract Evaluation Reason Comments Pre-Op Visit Reason Comments Neovascular Age related macular degenera tion Reason Comments Pre-Op Exam Ultrasound Both eyes Reason Comments Post-op Cataract OD 11.20.24 Reason Comments Nonexudative Macular Degeneration Reason Comments Medication Problem Reason Onset Date Comments Refill Request 05/03/2024 Reason Comments Cataract Evaluation Left Eye Reason Comments Pre-Op Exam Reason Comments Results Reason Comments Macular Degeneration Follow Up FOR RECORDS PERTAINING TO PATIENTS WHO ARE [...] BE BASED ON THE PRIMARY CLINICAL RECORDS. [address] [facility]. provides no warranty or guarantee of the accuracy or completeness of information in this document.
[2024-08-08 11:46] LABS: Basophils Absolute Auto 0.1 10^3/uL (0.0-0.1); Basophils Percent Auto 1.1 % (0.2-2.0); Eosinophils Absolute Auto 0.1 10^3/uL (0.0-0.7); Eosinophils Percent Auto 1.2 % (0.9-7.0); Hematocrit 41.7 % (42.0-54.0); Hemoglobin 13.6 g/dL (14.0-18.0); Immature Granulocytes Abs Auto 0.02 10^3/uL (0.00-0.03); Immature Granulocytes Pct Auto 0.2 % (0.0-0.5); Lymphocytes Absolute Auto 1.6 10^3/uL (1.2-3.8); Lymphocytes Percent Auto 19.3 % (20.5-60.0); Mean Corpuscular HGB Conc 32.6 g/dL (29.9-35.2); Mean Corpuscular Hemoglobin 33.3 pg (25.9-34.0); Mean Platelet Volume 9.5 fL (9.5-13.5); Monocytes Absolute Auto 0.8 10^3/uL (0.3-0.8); Monocytes Percent Auto 9.9 % (1.7-12.0); Neutrophils Absolute Auto 5.5 10^3/uL (1.4-6.5); Neutrophils Percent Auto 68.3 % (43.0-75.0); Platelet Count 232 10^3/uL (150-450); Red Blood Count 4.09 10^6/uL (4.70-6.10); Red Cell Distribution Width 12.7 % (11.0-15.0); White Blood Count 8.1 10^3/uL (4.0-11.0)
[2024-08-08 12:54] LABS: Alanine Aminotransferase 45 U/L (16-63); Albumin Globulin Ratio 1.1; Albumin Level 3.5 g/dL (3.4-5.0); Alkaline Phosphatase 114 U/L (46-116); Anion Gap 14.2; Aspartate Amino Transferase 25 U/L (15-37); BUN Creatinine Ratio 17.8; Bilirubin Total 0.6 mg/dL (0.2-1.0); Carbon Dioxide 29.2 mmol/L (21.0-32.0); Chloride 103 mmol/L (98-107); Estimated GFR (African America 47 (>=60 mL/min/1.73m^2); Estimated GFR (Non-African Ame 39 (>=60 mL/min/1.73m^2); Globulin 3.3 g/dL; Glucose 163 mg/dL (74-106); Potassium 4.4 mmol/L (3.5-5.1); Sodium 142 mmol/L (136-145); Total Protein 6.8 g/dL (6.4-8.2)
== END 2024-08-08 11:30 | disposition home or self-care (01) ==
LOC: LAB 11:31
PROVIDERS: PCP Family Medicine; Visit Provider Family Medicine
DX: I25.10 Atherosclerotic heart disease of native coronary artery without angina pectoris (principal); E11.9 Type 2 diabetes mellitus without complications; I50.30 Unspecified diastolic (congestive) heart failure; R53.83 Other fatigue; I11.0 Hypertensive heart disease with heart failure
CPT/HCPCS: 36415; 80053; 83880; 85025

== ENCOUNTER 2024-08-21 04:00 | Outpatient (RCR) | payer MEDICARE, OTHER, SELFPAY | END 2024-09-19 14:36 | disposition home or self-care (01) | LOC: MM 04:00 | PROVIDERS: PCP Family Medicine; Visit Provider Internal Medicine | DX: Z51.81 Encounter for therapeutic drug level monitoring (principal); Z79.01 Long term (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 of anticoagulants; I48.0 Paroxysmal atrial fibrillation | CPT/HCPCS: 85610; G0463 ==

== ENCOUNTER 2024-09-20 04:33 | Outpatient (RCR) | payer MEDICARE, OTHER, SELFPAY | END 2024-10-20 07:14 | disposition home or self-care (01) | LOC: MM 04:33 | PROVIDERS: PCP Family Medicine; Visit Provider Internal Medicine | DX: Z51.81 Encounter for therapeutic drug level monitoring (principal); Z79.01 Long term (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 of anticoagulants; I48.0 Paroxysmal atrial fibrillation | CPT/HCPCS: 85610; G0463 ==

== ENCOUNTER 2024-10-21 07:42 | Outpatient (RCR) | payer MEDICARE, OTHER, SELFPAY | END 2024-11-15 14:41 | disposition home or self-care (01) | LOC: MM 07:42 | PROVIDERS: PCP Family Medicine; Visit Provider Internal Medicine | DX: Z51.81 Encounter for therapeutic drug level monitoring (principal); Z79.01 Long term (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 of anticoagulants; I48.91 Unspecified atrial fibrillation | CPT/HCPCS: 85610; G0463 ==

== ENCOUNTER 2024-11-20 02:45 | Outpatient (RCR) | payer MEDICARE, OTHER, SELFPAY | END 2024-12-20 16:37 | disposition home or self-care (01) | LOC: MM 02:45 | PROVIDERS: PCP Family Medicine; Visit Provider Internal Medicine | DX: Z51.81 Encounter for therapeutic drug level monitoring (principal); Z79.01 Long term (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 of anticoagulants; I48.0 Paroxysmal atrial fibrillation | CPT/HCPCS: 85610; G0463 ==

== ENCOUNTER 2024-12-21 02:18 | Outpatient (RCR) | payer MEDICARE, OTHER, SELFPAY | END 2025-01-17 12:36 | disposition home or self-care (01) | LOC: MM 02:18 | PROVIDERS: PCP Family Medicine; Visit Provider Internal Medicine | DX: Z51.81 Encounter for therapeutic drug level monitoring (principal); Z79.01 Long term (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 of anticoagulants; I48.0 Paroxysmal atrial fibrillation | CPT/HCPCS: 85610; G0463 ==

== ENCOUNTER 2025-01-21 01:16 | Outpatient (RCR) | payer MEDICARE, OTHER, SELFPAY | END 2025-02-19 15:31 | disposition home or self-care (01) | LOC: MM 01:16 | PROVIDERS: PCP Family Medicine; Visit Provider Internal Medicine | DX: Z51.81 Encounter for therapeutic drug level monitoring (principal); Z79.01 Long term (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 of anticoagulants; I48.0 Paroxysmal atrial fibrillation | CPT/HCPCS: 85610; G0463 ==

== ENCOUNTER 2025-01-22 11:56 | Outpatient (OUT) | payer MEDICARE, OTHER, SELFPAY ==
--- OUTSIDE RECORDS SUMMARY | 2025-01-22 12:04 | XMS_ITS | CCD ---
Author Organization [facility] Care Team Providers Care Nurses Supervisor Name Role Phone UNKNOWN, PROVIDER Unavailable Unavailable HOY, BRIDGET Unavailable Unavailable HOY, BRIDGET Unavailable Unavailable FAVIOMARISOL Irby Unavailable Unavailable HI Unavailable Unavailable MARIE IRAHETA Unavailable Unavailable Christie DONALD Attending Unavailable Altafy PROVIDERBridget Primary Care UnavailGIL Jimenez Attending Unavailable GIL GARLAND Attending Unavailable FAROSA, MORALEZ H Attending Unavailable HOObie ., DR GILL Primary Care Unavailable FAWWAD, MORALEZ H Admitting Unavailable FAWWARonnie, MORALEZ H Admitting Unavailable FAWNAEEMD, MORALEZ H Attending Unavailable HOY ., DR GILL Primary Care Unavailable FAWWARonnie, MORALEZ H Admitting Unavailable HOY ., DR GILL Primary Care Unavailable FAROSA, MORALEZ H Attending Unavailable HOY ., DR GILL Admitting Unavailable HOY ., DR GILL Primary Care Unavailable HOY ., DR GILL Consulting Unavailable MARTINE ., DR GILL Attending Unavailable ALEXANDRA, DR CALOS Chen Consulting Unavaileric STEPHENSON, DR BROOKS Gillespie Consulting Unavailable FAWWARonnie, MORALEZ H Consulting Unavailable CANDI CODY Consulting Unavailable MARTINE ., DR GILL Primary Care Unavailable ABBAS, DR KING Attending Unavailable ABBAS, DR KING Admitting Unavailable ABBAS, DR KING Consulting Unavailable SEEMA, DR BROOKS Gillespie Consulting Unavailable FAWWAD, MORALEZ H Attending Unavailable HOY ., DR GILL Primary Care Unavailable FAWWARonnie, MORALEZ H Admitting Unavailable HOObie ., DR GILL Primary Care Unavailable FALGUNI, DR CHEPE Pichardo Consulting Unavailable DEREK JOHNSON Attending Unavailable JCARLOS Kwong, DEREK Admitting Unavailable DEREK JOHNSON Consulting Unavailable FAWWAD, MORALEZ H Attending Unavailable [...] MORALEZ H Attending Unavailable HOY ., DR IGLL Primary Care Unavailable ZIEBER, DR BROOKS Gillespie Consulting Unavailable FAWWAD, MORALEZ H Admitting Unavailable HITESH ., RUBY REYES Consulting UnavailCHEPE Ta Consulting Unavailable DEREK JOHNSON Consulting Unavailable FAWWAD, MORALEZ H Consulting Unavailable [...] Unavailable DANIELA ., DR WOODRUFF Admitting Unavailable [place], DR CHEPE Pichardo Consulting Unavailable DANIELA ., DR WOODRUFF Consulting Unavailable FAWWAD, MORALEZ H Attending Unavailable HOY ., DR GILL Primary Care Unavailable FAWWAD, MORALEZ H Admitting Unavailable PHILLIP PRERNA Consulting Unavailable KATHERINE VALENTINE Admitting Unavailable KATHERINE VALENTINE Attending Unavailable Jasiel Franks Attending Unavailable Jasiel Franks Admitting Unavailable Bridget Farley Primary Care Unavailable Unavailable Primary Care Provider UnavailLISSETH Harper Referring Unavailable ELLIOT GARRIDO Referring Unavailable LISSETH KENNEY Referring Unavailable ALISON MAE Attending Unavailable ALISON MAE Admitting Unavailable ALISON MAE Consulting Unavailable ELLIOT GARRIDO Consulting Unavailable PETER GALLEGOS Consulting Unavailable NIXON RENTERIA Consulting Unavail able KATHERINE VALENTINE Consulting Unavailable SHASHANK RODRIGUEZ Consulting Unavailable RELL ARRIAGA Referring Unavailable RELL ARRIAGA Referring Unavailable Bridget Farley MD Primary Care Provider [phone] Unavailable Primary Care Provider Unavailabl e RAMIN SPRAGUE Admitting Unavailable RAMIN SPRAGUE Referring Unavailable HOY, BRIDGET M Primary Care Unavailable GIBSON SPRAGUEE Leo Attending Unavailable SASTRY, ARASH Attending Unavailable HOY, BRIDGET M Primary Care Unavailable SASTRY, ARASH Referring Unavailable SASTRY, ARASH Attending Unavailable HOY, BRIDGET M Primary Care Unavailable SASTRY, ARASH Attending Unavailable HOY, BRIDEGT M Primary Care Unavailable SASTRY, ARASH Attending Unavailable IGBSON SPRAGUEE Leo Attending Unavailable HOY, BRIDGET M Primary Care Unavailable RAMIN SPRAGUE Admitting Unavailable BALWINDER SPRAGUENNE Leo Referring Unavailable BALWINDER SPRAGUENNE Leo Attending Unavailable CHRISTIE CASSIDY Referring Unavailable HOY, BRIDGET M Primary Care Unavailable HOY, BRIDGET M Primary Care Unavailable NEY CISSE Referring Unavailab BALWINDER GarciaNNE A Attending Unavailable SASTRY, ARASH Attending Unavailable HOY, BRIDGET M Primary Care Unavailable BALWINDER SPRAGUENNE A Attending Unavailable HOY, BRIDGET M Primary Care Unavailable SASTRY, ARASH Attending Unavailable NEY CISSE Referring Unavailab BALWINDER GarciaNNE A Attending Unavailable NEY CISSE Referring Unavailab le BALWINDER SPRAGUENNE A Referring Unavailable SASTRY, ARASH Attending Unavailable HOY, BRIDGET M Primary Care Unavailable MELVIN, RAMNI A Referring Unavailable HOY, BRIDGET M Primary Care Unavailable HOY, BRIDGET M Primary Care Unavailable CHRISTIE CASSIDY Referring Unavailable HOY, BRIDGET M Primary Care Unavailable HOY, BRIDGET M Primary Care Unavailable ELISA CHI Attending Unavailable SASTRY, ARASH Attending Unavailable HOY, BRIDGET M Primary Care Unavailable Allergies Allergy Classification Reported Allergen(s) Allergy Type Date of Onset Reaction(s) Facility (1 source) 43876,00; Translations: [55548,00] Propensity to adverse reactions (disorder) 9 [facility] Repository (1 source) No Known Medication Allergies; Translations: [Unknown] Propensity to adverse reactions (disorder) [facility] Repository (1 source) apixaban Drug Allergy 2 [facility] Repository (20 sources) apixaban; Translations: [APIXABAN] Drug Allergy 4 Shortness of Breath [facility] Medications Current Medications Medication Drug Class(es) Dates Sig (Normalized) Sig (Original) amLODIPine 2.5 mg oral tablet (19 sources) Dihydropyridine Calcium Channel Mer Start: 03-09-2024 amLODIPine (NORVASC) 2.5 mg tablet 03/09/2024 Active Start: 07-29-2023 take 1 tablet by nydia th once daily amLODIPine (NORVASC) 2.5 MG tablet Take 1 tablet by mouth daily 30 tablet 3 07/29/2023 Active atenolol 50 mg oral tablet (19 sources) beta-Adrenergic Mer Start: 03-02-2024 take 1 tablet by mouth every twelve hours atenolol (TENORMIN) 50 mg tablet Take 1 tablet by mouth every 12 hours. 03/02/2024 Active Start: 07-14-2022 take 1 tablet by nydia th twice daily atenolol (TENORMIN) 50 MG tablet Take 1 tablet by mouth 2 times daily 07/14/2022 Active atorvastatin 80 mg oral tablet (19 sources) HMG-CoA Reductase Inhibitor Start: 03-02-2024 take 1 tablet by mouth once atorvastatin (LIPITOR) 80 mg tablet Take 1 tablet by mouth every afternoon. 03/02/2024 Active take 1 tablet by mouth once almas y atorvastatin (LIPITOR) 80 MG tablet Take 1 tablet by mouth daily Active benoxinate hydrochloride 4 mg/ml / fluorescein sodium 3 mg/ml ophthalmic solution (8 sources) Diagnostic Dye Start: 12-21-2024 End: 12-21-2024 fluorescein-benoxinate 0.3-0.4 % 1 drop (FLURESS) Start: 12-21-2024 End: 12-21-2024 1 drop, BOTH EYES, DIRECT ED, Starting on Tue12/21/24 at 1100, Until Tue12/21/24 at 2259, Administer for applanation tonometry. In the event of a Fluress shortage, administer Kalyn-Fluor 1 drop into both eyes as directed for applanation tonometry, [facility] Start: 10-31-2024 End: 11-01-2024 fluorescein-benoxinate 0.3-0 .4 % 1 drop (FLURESS) Start: 07-25-2024 End: 07-25-2024 fluorescein-benoxinate 0.3-0 .4 % 1 Drop (FLURESS) Start: 03-14-2024 End: [...] 07/29/2023 Active finasteride 5 mg oral tablet (19 sources) 5-alpha Reductase Inhibitor Start: 03-02-2024 take 1 tablet by mouth once finasteride (PROSCAR) 5 mg tablet Take 1 tablet by mouth every afternoon. 03/02/2024 Active take 1 tablet by mouth once almas y finasteride (PROSCAR) 5 MG tablet Take 1 tablet by mouth daily Active furosemide 40 mg oral tablet (19 sources) Loop Diuretic Start: 03-02-2024 take 1 tablet by mouth once daily in the morning furosemide (LASIX) 40 mg tablet TAKE 1 TABLET BY MOUTH ONCE EVERY MORNING 30 03/02/2024 Active take 1 tablet by mouth once almas y furosemide (LASIX) 40 MG tablet Take 1 tablet by mouth daily Active glipiZIDE 5 mg oral tablet (19 sources) Sulfonylurea Start: 03-02-2024 take 1 tablet [...] Active ketorolac tromethamine 5 mg/ml ophthalmic solution (20 sources) Nonsteroidal Anti-inflammatory Drug, Cyclooxygenase Inhibitor Start: 04-11-2024 keTORolac (ACULAR) 0.5 % ophthalmic solution Use one drop in operative eye as directed by Dr. Sprague starting tomorrow. 5 mL 08/13/2024 Active lisinopril 20 mg oral tablet (19 sources) Angiotensin Converting Enzyme Inhibitor Start: 03-05-2024 take 1 tablet by mouth once lisinopril (ZESTRIL) 20 mg tablet Take 1 tablet by mouth every afternoon. 03/05/2024 Active Start: 08-18-2022 take 1 tablet by nydia th once daily lisinopril (PRINIVIL;ZESTRIL) 20 MG tablet Take 1 tablet by mouth daily 08/18/2022 Active metFORMIN hydrochloride 500 mg oral tablet (19 sources) Biguanide Start: 02-22-2024 take 1 tablet [...] 07/29/2023 Active nitroglycerin 0.4 mg sublingual tablet (20 sources) Nitrate Vasodilator Start: 01-05-2024 nitroglycerin sublingual [...] Active phenylephrine hydrochloride 25 mg/ml ophthalmic solution (6 sources) alpha-1 Adrenergic Agonist Start: 12-21-2024 End: 12-21-2024 PHENYLephrine 2.5 % 1 drop (AK-DILATE, JUAN CARLOS-SYNEPHRINE) Start: 12-21-2024 End: 12-21-2024 1 drop, BOTH EYES, DIRECT ED, Starting on Tue12/21/24 at 1100, Until Tue12/21/24 at 2259, Administer for dilation PROTECT FROM LIGHT, OPHT CLINIC MED ORDERS Start: 07-25-2024 End: 07-25-2024 PHENYLephrine 2.5 % 1 Drop ( AK-DILATE, JUAN CARLOS-SYNEPHRINE) Start: 02-23-2024 End: 02-23-2024 PHENYLephrine 2.5 % 1 Drop ( AK-DILATE, JUAN CARLOS-SYNEPHRINE) Start: 02-15-2024 End: 02-15-2024 PHENYLephrine 2.5 % 1 Drop ( AK-DILATE, JUAN CARLOS-SYNEPHRINE) Start: 02-15-2024 End: 02-15-2024 1 Drop, BOTH EYES, DIRECT ED, Starting on Tue02/15/24 at 1030, Until Tue02/15/24 at 2229, Administer for dilation PROTECT FROM LIGHT microencapsulated potassium chloride 20 meq extended release oral tablet (20 sources) Start: 07-14-2022 take 1 tablet by mouth twice daily KLOR-CON M20 20 MEQ extended release tablet Take 1 tablet by mouth 2 times daily 07/14/2022 Active prednisoLONE acetate 10 mg/ml ophthalmic suspension (20 sources) Corticosteroid Start: 08-13-2024 prednisoLONE acetate (PRED FORTE) 1 % ophthalmic suspension Use one drop in operative eye as directed by Dr. Sprague starting tomorrow. 08/13/2024 Active Start: 05-04-2024 prednisoLONE a cetate (PRED FORTE) 1 % ophthalmic suspension 1 drop in the operative eye 4 times daily for 7 days after surgery, then taper as directed. 5 mL 05/04/2024 Active Start: 04-11-2024 End: 05-03-2024 prednisoLONE acetate (PRED F ORTE) 1 % ophthalmic suspension Use one drop in operative eye as directed by Dr. Sprague starting tomorrow. 04/11/2024 05/03/2024 Discontinued proparacaine hydrochloride 5 mg/ml ophthalmic solution (7 sources) Local Anesthetic Start: 12-21-2024 End: 12-21-2024 proparacaine 0.5 % 1 drop (ALCAINE) Start: 12-21-2024 End: 12-21-2024 1 drop, BOTH EYES, DIRECT ED, Starting on Tue12/21/24 at 1100, Until Tue12/21/24 at 2259, Administer for pneumo tonometry, tonopen tonometry, or pachymetry. In the event of a proparacaine shortage, administer tetracaine 0.5% ophthalmic drops 1 drop in both eyes as directed for pneumo tonometry, tonopen tonometry, or pachymetry, OPHT CLINIC MED ORDERS Start: 10-31-2024 End: 11-01-2024 proparacaine 0.5 % 1 drop (A LCAINE) Start: 07-25-2024 End: 07-25-2024 proparacaine 0.5 % 1 Drop (A LCAINE) Start: 03-14-2024 End: 03-14-2024 proparacaine 0.5 % [...] pachymetry tamsulosin hydrochloride 0.4 mg oral capsule (20 sources) alpha-Adrenergic Mer take 0.4 mg by mouth once daily tamsulosin (FLOMAX) 0.4 mg Take 0.4 mg by mouth once daily. Active tropicamide 10 mg/ml ophthalmic solution (6 sources) Anticholinergic Start: 12-22-19 End: 12-22-19 tropicamide 1 % 1 drop (MYDRIACYL) Start: 12-21-2024 End: 12-21-2024 1 drop, BOTH EYES, DIRECT ED, Starting on Tue12/21/24 at 1100, Until Tue12/21/24 at 2259, Administer for dilation, OPHT CLINIC MED ORDERS Start: 07-25-2024 End: 07-25-2024 tropicamide 1 % 1 Drop (MYDR IACYL) Start: 02-23-2024 End: 02-23-2024 tropicamide 1 % 1 Drop (MYDR IACYL) Start: 02-15-2024 End: 02-15-2024 tropicamide 1 % 1 Drop (MYDR IACYL) Start: 02-15-2024 End: 02-15-2024 1 Drop, BOTH EYES, DIRECT ED, Starting on Tue02/15/24 at 1030, Until Tue02/15/24 at 222, Administer for dilation vit C/E/zinc ox/sara/lut/zeax (ICAPS AREDS2 ORAL) (19 sources) vit C/E/zinc ox/sara/lut/zeax (ICAPS AREDS2 ORAL) Take by mouth. Active warfarin sodium 10 mg oral tablet (20 sources) Vitamin K Antagonist Start: 024 take 1 tablet by mouth once daily warfarin (COUMADIN) 10 MG tablet Take 1 tablet by mouth daily 30 tablet 3 07/29/2023 Active Start: 07-11-2023 warfarin (COUM NORRIS) 3 mg tablet Take by mouth. 07/11/2023 Active Completed/Discontinued Medications Medication Drug Class(es) Dates Sig (Normalized) Sig (Original) 0.05 ml aflibercept 40 mg/ml injection (2 sources) Vascular Endothelial Growth Factor Inhibitor Start: 02-15-2024 End: 02-15-2024 aflibercept intravitreal injection 2 mg/0.05 mL (EYLEA) Start: 02-15-2024 End: 02-15-2024 2 mg, ONCE, 1 dose, Starting on Tue02/15/24 at 1231, Until Tue02/15/24 at 1231 aflibercept intravitreal injection 2 mg/0.05 mL (EYLEA) (10 sources) Start: 10-31-2024 End: 10-31-2024 aflibercept intravitreal injection 2 mg/0.05 mL (EYLEA) Start: 10-31-2024 End: 10-31-2024 2 mg, ONCE, 1 dose, Starting on Tue10/31/24 at 1534, Until Tue10/31/24 at 1534 Start: 08-22-2024 End: 08-22-2024 aflibercept intravitreal inj ection 2 mg/0.05 mL (EYLEA) Start: 08-22-2024 End: 08-22-2024 2 mg, ONCE, 1 dose, Starting on Tue08/22/24 at 1414, Until Tue08/22/24 at 1414 Start: 06-20-2024 End: 06-20-2024 aflibercept intravitreal inj ection 2 mg/0.05 mL (EYLEA) Start: 06-20-2024 End: [...] [Age-related nuclear cataract, right eye] Onset: 02-23-2024 Resolved: 08-13-2024 02-23-2024 Chronic Chronic kidney disease (1 source) [...] disease (20 sources) Atherosclerotic heart disease of [place] coronary artery with unstable angina pectoris; Translations: [Ischemic cardiomyopathy] Onset: 09-20-2012 03-14-2024 Chronic Diabetes mellitus with complications (1 source) Type 2 diabetes mellitus with diabetic chronic kidney disease; Translations: [TYPE 2 DM W/DIABETIC CKD] Onset: 04-26-2022 Chronic Diabetes mellitus without complication (20 sources) Type 2 diabetes mellitus without complications; Translations: [Type 2 diabetes mellitus without complication] Onset: 09-26-2012 03-14-2024 Chronic Disorders of lipid metabolism (20 sources) Hyperlipidemia, unspecified; Translations: [Pure hypercholesterolemia, unspecified] Onset: 02-11-2017 03-14-2024 Chronic Essential hypertension (20 sources) Essential (primary) hypertension; Translations: [Essential hypertension] Onset: 01-30-2022 03-14-2024 Chronic Heart valve disorders (2 sources) Mitral valve regurgitation; Translations: [Nonrheumatic mitral (valve) insufficiency] Onset: 07-13-2023 07-13-2023 Chronic Hyperplasia of prostate (20 sources) Benign prostatic hypertrophy without outflow obstruction; [...] Onset: 09-18-2022 Episodic Other aftercare (1 source) detention (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 of anticoagulants; Translations: [TOE STAPLER CURRNT USE ANTICOAGULANTS] Onset: 10-20-2022 Episodic Other aftercare (1 source) Other prison (current) drug therapy; Translations: [OTH TOE STAPLER CURRENT DRUG THERAPY] Onset: 09-09-2022 Episodic Other aftercare (1 source) 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; Translations: [TOE STAPLER USE ORAL HYPOGLYCEMIC DX] Onset: 09-09-2022 Episodic Other connective tissue disease (1 source) Pain in right leg; Translations: [PAIN IN RIGHT LEG] Onset: 09-13-2022 Episodic Other connective tissue disease (1 source) Other specified soft tissue disorders; Translations: [OTHER SPEC SOFT TISSUE DISORDERS] Onset: 09-13-2022 Episodic Other lower respiratory disease (1 source) Solitary pulmonary nodule; Translations: [SOLITARY PULMONARY NODULE] Onset: 09-09-2022 Episodic Peripheral and visceral atherosclerosis (10 sources) [...] [Cervicalgia] Onset: 07-11-2023 Episodic Unclassified (1 source) 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; Translations: [TOE STAPLER (CURRENT) USE OF ORAL HYPOGLYCEMIC DRUGS] Onset: [...] Date Documented Date Episodic/Chronic Acute myocardial infarction (11 sources) ST elevation (STEMI) myocardial infarction involving other coronary artery of anterior wall; Translations: [Acute ST segment elevation myocardial infarction] Onset: 02-11-2017 Resolved: 07-16-2024 07-16-2024 Chronic Blindness and vision defects (20 sources) Bilateral regular astigmatism; Translations: [Regular astigmatism, [...] 07-20-2023 07-20-2023 Episodic Other aftercare (2 sources) 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 helper (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 of antithrombotics/antip latelets; Translations: [buttermaker helper (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 of aspirin] Onset: 02-11-2017 Episodic Other aftercare (1 source) buttermaker helper (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 of aspirin; Translations: [TOE STAPLER CURRENT USE OF ASPIRIN] Onset: 12-28-2021 Episodic Other eye disorders (20 sources) Dermatochalasis of right upper eyelid; Translations: [Dermatochalasis] Onset: 02-23-2024 02-23-2024 Episodic Other eye disorders (13 sources) Strabismus; Translations: [Unspecified strabismus] Onset: 06-28-2024 06-28-2024 Episodic Other eye disorders (1 source) Dermatochalasis of left upper eyelid; Translations: [Dermatochalasis of both upper eyelids] Onset: 02-23-2024 Episodic Other fractures (5 sources) Unspecified displaced [...] closed fracture] Onset: 07-12-2023 Episodic Other fractures (2 sources) Closed fracture of second cervical vertebra; Translations: [Unspecified displaced fracture of second cervical vertebra, initial encounter for closed fracture] Onset: 07-12-2023 01-30-2024 Episodic Other fractures (10 sources) Fracture of cervical spine; Translations: [Fracture of neck, unspecified, initial encounter] Onset: 07-19-2023 07-19-2023 Episodic Other lower respiratory disease (3 sources) [...] [Pain in left knee] Onset: 07-12-2023 Episodic Other screening for suspected conditions (not mental disorders or infectious disease) (2 sources) Blood chemistry abnormal; Translations: [Abnormal finding of blood chemistry, unspecified] Onset: 07-16-2024 07-16-2024 Episodic Pleurisy; pneumothorax; pulmonary collapse (4 sources) [...] OCT MACULA CIRRUS OU (BOTH E YES)on 12-21-2024 [facility] Radiology Study observation (narrative) [facility] EYLEA (AFLIBERCEPT) 2MG INTR AVITREAL INJECTION OS (LEFT EYE)on 10-31-2024 [facility] OCT MACULA CIRRUS OU (BOTH E YES)on 10-31-2024 [facility] Radiology Study observation (narrative) [facility] EYLEA (AFLIBERCEPT) 2MG INTR AVITREAL INJECTION OS (LEFT EYE)on 08-22-2024 [facility] OCT MACULA CIRRUS OU (BOTH E YES)on 08-22-2024 [facility] Radiology Study observation (narrative) [facility] ANES POSTPROC EVALon 025 ANES POSTPROC EVAL HNO ID: [id number] Author: GIL CORDOVA II, DO Service: Anesthesiology Author Type: Anesthesiologist Type: Anesthesia Postprocedure Evaluation Filed: 08/13/2024 10:14 Note Text: POST ANESTHESIA EVALUATION NOTE : 1940 Procedure Summary Date: 08/13/24 Room / Location: [address] Anesthesia Start: 943 Anesthesia Stop: 999 Procedures: PHACOEMULSIFICATION CATARACT IMPLANT INTRAOCULAR LENS W/O ENDOSCOPIC CYCLOPHOTOCOAGULATION (Left: Eye) OPHTHALMIC BIOMETRY BY PARTIAL COHERENCE INTERFEROMETRY W/INTRAOCULAR LENS POWER CALCULATION (Left: Eye) Diagnosis: Nuclear senile cataract of left eye (Nuclear senile cataract of left eye [H25.12]) Surgeons: Ramin Sprague MD Responsible Provider: Gil Cordova II, DO Anesthesia Type: MAC ASA Status: 3 Anesthesia Type: MAC Last Vitals Vitals Value Taken Time BP 120/61 08/13/24 1001 Temp 36.7 ?C (98 ?F) 08/13/24 1001 Pulse 61 08/13/24 1004 Resp 16 08/13/24 1004 SpO2 96 % 08/13/24 1004 Post Anesthesia Patient Status Patient Evaluation: PACU. PACU/ICU Patient Condition: stable. Neurological Status: aware and responsive. Pulmonary Status: breathing comfortably on room air Airway Control: returned to baseline unsupported. Cardiovascular Status: stable. Pain Management: clinically adequate Postoperative Hydration: acceptable. Intraoperative Events: no significant anesthesia events Post Operative Nausea/Vomiting Status: no significant post operative nausea or vomiting Recommendation: continue current plan of care. Anesthesia Observations No Documentation SIGNATURE: Gil Cordova II, DO PATIENT NAME: Elvira Bergman DATE: August 13, 2024 TIME: 10:14 AM CSN: [id number] Normal [facility] ANES PRE-OPon 08-13-2024 ANES PRE-OP HNO ID: [id number] Author: GIL CORDOVA II, DO Service: Anesthesiology Author Type: Anesthesiologist Type: Anesthesia Preprocedure Evaluation Filed: 08/13/2024 09:34 Note Text: ANESTHESIOLOGY DAY OF SURGERY NOTE : 1940 Procedure Information Date/Time: 08/13/24 0950 Procedures: PHACOEMULSIFICATION CATARACT IMPLANT INTRAOCULAR LENS W/O ENDOSCOPIC CYCLOPHOTOCOAGULATION (Left: Eye) OPHTHALMIC BIOMETRY BY PARTIAL COHERENCE INTERFEROMETRY W/INTRAOCULAR LENS POWER CALCULATION (Left: Eye) Location: [address] Surgeons: Ramin Sprague MD Estimated body mass index is 24.52 kg/m? as calculated from the following: Height as of 07/16/24: 182.9 cm (6'). Weight as of 07/16/24: 82 kg (180 lb 12.4 oz). Most recent hematocrit and potassium results: Potassium 4.9 07/25/2024 Relevant Problems CARDIO (+) Congestive heart failure (HCC) (+) Coronary atherosclerosis (+) Essential hypertension (+) Persistent atrial fibrillation (HCC) ENDO (+) Type 2 diabetes mellitus without complication ([facility] I - PHYSICAL EVALUATION AIRWAY Patient intubated: No. Tracheostomy tube not present Mallampati: III. TM distance: >3 FB. Neck ROM: limited extension. Mouth opening: adequate. Short neck: no. Thick neck: no DENTAL Dental findings: missing tooth/teeth. Additional exam findings: yes. CARDIOVASCULAR Rhythm: irregular Rate: normal PULMONARY Breath sounds clear to auscultation. II - ANESTHESIA PLAN ASA Score: 3 Anesthetic Plan: MAC The patient is not a current smoker. NPO Status: adequate Beta Mer Monitoring Plan Monitoring plan: standard ASA. Post Procedure Analgesic Plan Postoperative analgesic plan: parenteral or oral opioids. Informed Consent Anesthetic risks, benefits, alternatives, personnel and consent discussed: yes. Patient / Responsible [employer] Party agrees to proceed: yes Patient / Surrogate agrees to blood products: Yes Vitals Value Taken Time BP 128/75 08/13/24917 Pulse 62 08/13/24917 Resp 14 08/13/24917 Temp 36.9 ?C (98.5 ?F) 08/13/24917 SpO2 98 % 08/13/24917 Facility-Administered Medications as of 08/13/2024 Medication Dose Route Frequency [COMPLETED] tetracaine (PF) 0.5 % 2 Drop (OPTICAINE) 2 Drop LEFT EYE EVERY 5 MINUTES X 3 DOSES [COMPLETED] PHENYLephrine 2.5 % 1 Drop (AK-DILATE, JUAN CARLOS-SYNEPHRINE) 1 Drop LEFT EYE EVERY 5 MINUTES X 3 DOSES [COMPLETED] tropicamide 1 % 1 Drop (MYDRIACYL) 1 Drop LEFT EYE EVERY 5 MINUTES X 3 DOSES cyclopentolate 1 % 1 Drop (CYCLOGYL) 1 Drop LEFT EYE Pre-Op PRN [COMPLETED] keTORolac 0.5 % 1 Drop (ACULAR) 1 Drop LEFT EYE q 5 MIN [COMPLETED] Povidone-Iodine 5 % 30 mL ophth soln (BETADINE) 30 mL LEFT EYE ONCE [COMPLETED] balanced salt 15 mL (BSS) 15 mL LEFT EYE ONCE Outpatient Medications as of 08/13/2024 Medication Sig atenolol (TENORMIN) 50 mg tablet Take 1 tablet by mouth every 12 hours. atorvastatin (LIPITOR) 80 mg tablet Take 1 tablet by mouth every afternoon. finasteride (PROSCAR) 5 mg tablet Take 1 tablet by mouth every afternoon. furosemide (LASIX) 40 mg tablet TAKE 1 TABLET BY MOUTH ONCE EVERY MORNING 30 glipiZIDE (GLUCOTROL) 5 mg tablet Take 1 tablet by mouth every 12 hours. lisinopril (ZESTRIL) 20 mg tablet Take 1 tablet by mouth every afternoon. metFORMIN (GLUCOPHAGE) 500 mg tablet Take 1 tablet by mouth every 12 hours. vit C/E/zinc ox/sara/lut/zeax (ICAPS AREDS2 ORAL) Take by mouth. warfarin (COUMADIN) 3 mg tablet Take by mouth. tamsulosin (FLOMAX) 0.4 mg Take 0.4 mg by mouth once daily. prednisoLONE acetate (PRED FORTE) 1 % ophthalmic suspension 1 drop in the operative eye 4 times daily for 7 days after surgery, then taper as directed. (Patient not taking: Reported on 07/25/2024) keTORolac (ACULAR) 0.5 % ophthalmic solution Use one drop in operative eye as directed by Dr. Sprague starting tomorrow. (Patient not taking: Reported on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 Glucose [Mass/Vol] 202 mg/dL High 70-99 [facility] Comment on above: Performed By: #### P T BMPX, CDP ####[facility] [id number] [facility], [place] [phone] Director: Dl Jean DO Potassium [Moles/Vol] 5.0 mmol/L Normal 3.7-5.3 [facility] Comment on above: Performed By: #### P TDESTINEYX, MAHOGANY ####[facility] Buq6427 [facility], [place] [phone] Director: Dl Jean DO Sodium [Moles/Vol] 136 mmol/L Normal 135-144 [facility] Comment on above: Performed By: #### P T BMPX, MAHOGANY ####[facility] Sue[address] [facility], [place] [phone] Director: Dl Jean DO Urea nitrogen [Mass/Vol] 19 mg/dL Normal 8-23 [facility] Comment on above: Performed By: #### P T BMPX, CDP ####[facility] [id number] [facility], [place] [phone] Director: Dl Jean DO CBC with Diffon 07-27-2023 Abs. Basophil 0.10 k/uL Normal 0.0-0.2 [facility] Comment on above: Performed By: #### P T BMPX, CDP ####[facility] [id number] [place] [address], [place] [address] Lab Director: Dl Jean DO Abs.Neutrophil (Seg) 7.40 k/uL Normal 1.3-9.1 [facility] Comment on above: Performed By: #### P T, BMPX, CDP ####[facility] [id number] [facility] [place] [address] Lab Director: Dl Jean DO Basophils/100 WBC (Bld) 1 % Normal 0-2 [facility] Comment on above: Performed By: #### P T, BMPX, CDP ####[facility] Ixo[address] [facility] [place] [address] Lab Director: Dl Jean DO Eosinophils (Bld) [#/Vol] 0.10 10*3/uL Normal 0.0-0.4 [facility] Comment on above: Performed By: #### P T, BMPX, CDP ####[facility] Znw1363 [facility] [place] [address] Lab Director: Dl Jean DO Eosinophils/100 WBC (Bld) 1 % Normal 0-4 [facility] Comment on above: Performed By: #### P T, BMPX, CDP ####[address] [place] [address] Lab Director: Dl Jean DO Erythrocyte distribution width (RBC) [Ratio] 18.2 % High 11.5-14.9 [facility] Comment on above: Performed By: #### P T, BMPX, CDP ####[facility] [id number] [place] [address].[place] [address] Lab Director: Dl Jean DO Hematocrit (Bld) [Volume fraction] 35.3 % Low 41-53 [facility] Comment on above: Performed By: #### P T, BMPX, CDP ####[facility] [address] [place] [address] Lab Director: Dl Jean DO Hemoglobin (Bld) [Mass/Vol] 11.3 g/dL Low 13.5-17.5 [facility] Comment on above: Performed By: #### P T, BMPX, CDP ####[facility] [address] [place] [address] lab Director: Dl Jean DO Lymphocytes (Bld) [#/Vol] 0.70 10*3/uL Low 1.0-4.8 [facility] Comment on above: Performed By: #### P T, BMPX, CDP ####[facility] [id number] [place] [address] lab Director: Dl Jean DO Lymphocytes/100 WBC (Bld) 8 % Low 24-44 [facility] Comment on above: Performed By: #### P T, BMPX, CDP ####[facility] Rrs[address] [facility] [place] [address] Lab Director: Dl Jean DO MCH (RBC) [Entitic mass] 30.9 pg Normal 26-34 [facility] Comment on above: Performed By: #### P T, BMPX, CDP ####[facility] Jue[address] [facility] [place] [address] Lab Director: Dl Jean DO MCHC (RBC) [Mass/Vol] 32.1 g/dL Normal 31-37 [facility] Comment on above: Performed By: #### P T, BMPX, CDP ####[facility] [address] [place] [address] lab Director: Dl Jean DO MCV (RBC) [Entitic vol] 96.4 fL Normal 80-100 [facility] Comment on above: Performed By: #### P T, BMPX, CDP ####[facility] [address] [place] [address] Lab Director: Dl Jean DO Monocytes (Bld) [#/Vol] 0.80 10*3/uL Normal 0.1-1.3 [facility] Comment on above: Performed By: #### P T, BMPX, CDP ####[facility] [address] [facility], [place] [phone] Director: Dl Jean DO Monocytes/100 WBC (Bld) 9 % High 1-7 [facility] Comment on above: Performed By: #### P T, BMPX, CDP ####[facility] Zgc0153 [facility], [place] [phone] Director: Dl Jean DO Neutrophil (Seg) 81 % High 36-66 [facility] Comment on above: Performed By: #### P T, BMPX, CDP ####[facility] Mfh9615 [facility], [place] [phone] Director: Dl Jean DO Platelet mean volume (Bld) [Entitic vol] 7.3 fL Normal 6.0-12.0 [facility] Comment on above: Performed By: #### P T, BMPX, CDP ####[facility] Rle3984 [facility], [place] [phone] Director: Dl Jean DO Platelets (Bld) [#/Vol] 331 10*3/uL Normal 150-450 [facility] Comment on above: Performed By: #### P T, BMPX, CDP ####[facility] [address], [place] [phone] Director: Dl Jean DO RBC (Bld) [#/Vol] 3.66 10*6/uL Low 4.5-5.9 [facility] Comment on above: Performed By: #### P T, BMPX, CDP ####[facility] Xlo[address]2 [facility] [place] [address] lab Director: Dl Jean DO WBC (Bld) [#/Vol] 9.0 10*3/uL Normal 3.5-11.0 [facility] Comment on above: Performed By: #### P T, BMPX, CDP ####[facility] [id number] [facility] [place] [address] lab Director: Dl Jean DO Glucose,Whole Bloodon 2023 Glucose [Mass/Vol] 197 mg/dL High 75-110 [facility] Glucose [Mass/Vol] 163 mg/dL High 75-110 [facility] Glucose [Mass/Vol] 141 mg/dL High 75-110 [facility] PTon 07-27-2023 INR Coag (PPP) [Relative time] 1.8 {INR} Normal [facility] Comment on above: Result Comment: Therapeutic Range: Moderate Anticoagulant Intensity: INR = 2.0-3.0 High Anticoagulant Intensity: INR = 2.5-3.5 Performed By: #### P T, BMPX, CDP ####[facility] Hsm[address]009 [facility] [place] [address] lab Director: Dl Jean DO PT Coag (PPP) [Time] 21.5 s High 11.8-14.6 [facility] Comment on above: Performed By: #### P T, BMPX, CDP ####[facility] [id number] [facility] [place] [address] lab Director: Dl Jean DO Glucose,Whole Bloodon 2023 Glucose [Mass/Vol] 135 mg/dL High 75-110 [facility] Glucose [Mass/Vol] 151 mg/dL High 75-110 [facility] Glucose [Mass/Vol] 187 mg/dL High 75-110 [facility] Glucose [Mass/Vol] 148 mg/dL High 75-110 [facility] PTon 07-26-2023 INR Coag (PPP) [Relative time] 2.5 {INR} Normal [facility] Comment on above: Result Comment: Therapeutic Range: Moderate Anticoagulant Intensity: INR = 2.0-3.0 High Anticoagulant Intensity: INR = 2.5-3.5 Performed By: #### P T ####[facility] [address] [place] [address] lab Director: Dl Jean DO PT Coag (PPP) [Time] 26.8 s High 11.8-14.6 [facility] Comment on above: Performed By: #### P T ####[facility] [address] [facility] [place] [address] lab Director: Dl Jean DO Glucose,Whole Bloodon 2023 Glucose [Mass/Vol] 197 mg/dL High 75-110 [facility] Glucose [Mass/Vol] 156 mg/dL High 75-110 [facility] Glucose [Mass/Vol] 160 mg/dL High 75-110 [facility] Glucose [Mass/Vol] 147 mg/dL High 75-110 [facility] PTon 07-25-2023 INR Coag (PPP) [Relative time] 2.1 {INR} Normal [facility] Comment on above: Result Comment: Therapeutic Range: Moderate Anticoagulant Intensity: INR = 2.0-3.0 High Anticoagulant Intensity: INR = 2.5-3.5 Performed By: #### P T ####[facility] [id number] [facility] [place] [address] lab Director: Dl Jean DO PT Coag (PPP) [Time] 23.9 s High 11.8-14.6 [facility] Comment on above: Performed By: #### P T ####[facility] [address] [place] [address] lab Director: Dl Jean DO Glucose,Whole Bloodon 2023 Glucose [Mass/Vol] 146 mg/dL High 75-110 [facility] Glucose [Mass/Vol] 182 mg/dL High 75-110 [facility] Glucose [Mass/Vol] 183 mg/dL High 75-110 [facility] Glucose [Mass/Vol] 147 mg/dL High 75-110 [facility] Glucose [Mass/Vol] 151 mg/dL High 75-110 [facility] PTon 07-24-2023 INR Coag (PPP) [Relative time] 1.8 {INR} Normal [facility] Comment on above: Result Comment: Therapeutic Range: Moderate Anticoagulant Intensity: INR = 2.0-3.0 High Anticoagulant Intensity: INR = 2.5-3.5 Performed By: #### P T ####[facility] Oel[address] [facility] [place] [address] [facility] Director: Dl Jean DO PT Coag (PPP) [Time] 21.3 s High 11.8-14.6 [facility] Comment on above: Performed By: #### P T ####[facility] Wce7923 [facility] [place] [address] lab Director: Dl Jean DO Glucose,Whole Bloodon 2023 Glucose [Mass/Vol] 154 mg/dL High 75-110 [facility] Glucose [Mass/Vol] 202 mg/dL High 75-110 [facility] Glucose [Mass/Vol] 180 mg/dL High 75-110 [facility] Liver Profileon 07-23-2023 Albumin [Mass/Vol] 3.6 g/dL Normal 3.5-5.2 [facility] Comment on above: Performed By: #### P T, LIVP ####[facility] Vro3597 [facility] [place] [address] lab Director: Dl Jean DO Alkaline Phos 178 U/L High 40-129 [facility] Comment on above: Performed By: #### P T, LIVP ####[facility] Mgd1102 [facility] [place] [address] Lab Director: Dl Jean DO ALT [Catalytic activity/Vol] 59 U/L High 5-41 [facility] Comment on above: Performed By: #### P T, LIVP ####[facility] Fhg6646 [place] [address] Lab Director: Dl Jean DO AST [Catalytic activity/Vol] 27 U/L Normal <40 [facility] Comment on above: Performed By: #### P T, LIVP ####[facility] Prc[address]73 [facility] [place] [address] Lab Director: Dl Jean DO Bilirubin [Mass/Vol] 0.5 mg/dL Normal 0.3-1.2 [facility] Comment on above: Performed By: #### P T, LIVP ####[facility] Txn8884 [facility] [place] [address] Lab Director: Dl Jean DO Bilirubin, Indirect 0.3 mg/dL Normal 0.0-1.0 [facility] Comment on above: Performed By: #### P T, LIVP ####[facility] Edj7[address] [facility] [place] [address] Lab Director: Dl Jean DO Bilirubin.indirec t [Mass/Vol] 0.2 mg/dL Normal <0.3 [facility] Comment on above: Performed By: #### P T, LIVP ####[facility] Fmi[address]247 [facility] [place] [address] Lab Director: Dl eJan DO Protein [Mass/Vol] 6.3 g/dL Low 6.4-8.3 [facility] Comment on above: Performed By: #### P T, LIVP ####[facility] [address] [place] [address] lab Director: Dl Jean DO PTon 07-23-2023 INR Coag (PPP) [Relative time] 1.6 {INR} Normal [facility] Comment on above: Result Comment: Therapeutic Range: Moderate Anticoagulant Intensity: INR = 2.0-3.0 High Anticoagulant Intensity: INR = 2.5-3.5 Performed By: #### P T, LIVP ####[facility] [id number] [facility] [place] [address] lab Director: Dl Jean DO PT Coag (PPP) [Time] 19.1 s High 11.8-14.6 [facility] Comment on above: Performed By: #### P T, LIVP ####[facility] [id number] [facility] [place] [address] lab Director: Dl Jean DO Glucose,Whole Bloodon 2023 Glucose [Mass/Vol] 211 mg/dL High 75-110 [facility] Glucose [Mass/Vol] 131 mg/dL High 75-110 [facility] Glucose [Mass/Vol] 227 mg/dL High 75-110 [facility] Glucose [Mass/Vol] 181 mg/dL High 75-110 [facility] PTon 07-22-2023 INR Coag (PPP) [Relative time] 1.5 {INR} Normal [facility] Comment on above: Result Comment: Therapeutic Range: Moderate Anticoagulant Intensity: INR = 2.0-3.0 High Anticoagulant Intensity: INR = 2.5-3.5 Performed By: #### P T ####[facility] [id number] [facility] [place] [address] lab Director: Dl Jean DO PT Coag (PPP) [Time] 18.0 s High 11.8-14.6 [facility] Comment on above: Performed By: #### P T ####[facility] [id number] [facility] [place] [address] lab Director: Dl Jean DO Glucose,Whole Bloodon 2023 Glucose [Mass/Vol] 148 mg/dL High 75-110 [facility] Glucose [Mass/Vol] 253 mg/dL High 75-110 [facility] Glucose [Mass/Vol] 190 mg/dL High 75-110 [facility] Glucose [Mass/Vol] 171 mg/dL High 75-110 [facility] PTon 07-21-2023 INR Coag (PPP) [Relative time] 1.5 {INR} Normal [facility] Comment on above: Result Comment: Therapeutic Range: Moderate Anticoagulant Intensity: INR = 2.0-3.0 High Anticoagulant Intensity: INR = 2.5-3.5 Performed By: #### P T ####[facility] [id number] [facility] [place] [address] lab Director: Dl Jean DO PT Coag (PPP) [Time] 17.9 s High 11.8-14.6 [facility] Comment on above: Performed By: #### P T ####[facility] Rpr1997 [facility] [place] [address] lab Director: Dl Jean DO XR CERVICAL [...] Banuelos MD Signed by: Antonieta Banuelos MD 2/29/24 Final result Normal [facility] Basic Metab w/rfx MGon 07-20 Anion gap [Moles/Vol] 12 mmol/L Normal 9-17 [facility] Comment on above: Performed By: #### L IVP, BMPX, PT, CDP ####[facility] [address] [place] [address] Lab Director: Dl Jean DO Calcium [Mass/Vol] 8.9 mg/dL Normal 8.6-10.4 [facility] Comment on above: Performed By: #### L IVP, BMPX, PT, CDP ####[facility] [id number] [facility] [place] [address] lab Director: Dl Jean DO Chloride [Moles/Vol] 102 mmol/L Normal 98-107 [facility] Comment on above: Performed By: #### L IVP, BMPX, PT, CDP ####[facility] Iim[address] [facility] [place] [address] lab Director: Dl Jean DO CO2 [Moles/Vol] 23 mmol/L Normal 20-31 [facility] Comment on above: Performed By: #### L IVP, BMPX, PT, CDP ####[facility] [address] [facility] [place] [address] Lab Director: Dl Jean DO Creatinine [Mass/Vol] 0.9 mg/dL Normal 0.7-1.2 [facility] Comment on above: Performed By: #### L IVP, BMPX, PT, CDP ####[facility] [id number] [facility] [place] [address] lab Director: Dl Jean DO GFR/1.73 sq M.predicted among non-blacks MDRD (S/P/Bld) [Vol rate/Area] mL/min/{1.73_m2} Normal >60 [facility] Comment on above: Result Comment: These results [...] By: #### L IVP, BMPX, PT, CDP ####[facility] Iin9363 [facility] [place] [address] Lab Director: Dl Jean DO Glucose [Mass/Vol] 173 mg/dL High 70-99 [facility] Comment on above: Performed By: #### L IVP, BMPX, PT, CDP ####[facility] Arj2232 [facility] [place] [address] Lab Director: Dl Jean DO Potassium [Moles/Vol] 4.8 mmol/L Normal 3.7-5.3 [facility] Comment on above: Performed By: #### L IVP, BMPX, PT, CDP ####[facility] Mfq3292 [facility] [place] [address] Lab Director: Dl Jean DO Sodium [Moles/Vol] 137 mmol/L Normal 135-144 [facility] Comment on above: Performed By: #### L IVP, BMPX, PT, CDP ####[facility] Plf2829 [facility] [place] [address] Lab Director: Dl Jean DO Urea nitrogen [Mass/Vol] 19 mg/dL Normal 8-23 [facility] Comment on above: Performed By: #### L IVP, BMPX, PT, CDP ####[facility] [id number] [facility] [place] [address] Lab Director: Dl Jean DO CBC with Diffon 07-20-2023 Abs. Basophil 0.10 k/uL Normal 0.0-0.2 [facility] Comment on above: Performed By: #### L IVP, BMPX, PT, CDP ####[facility] [id number], [place] [phone] Director: Dl Jean DO Abs.Neutrophil (Seg) 5.00 k/uL Normal 1.3-9.1 [facility] Comment on above: Performed By: #### L IVP, BMPX, PT, CDP ####[facility] Vnl4539 [facility], [place] [phone] Director: Dl Jean DO Basophils/100 WBC (Bld) 1 % Normal 0-2 [facility] [facility] Comment on above: Performed By: #### L IVP, BMPX, PT, CDP ####[facility] [id number] [facility].[place], [place] [id number])[phone] Director: Dl Jean DO Eosinophils (Bld) [#/Vol] 0.10 10*3/uL Normal 0.0-0.4 [facility] Comment on above: Performed By: #### L IVP, BMPX, PT, CDP ####[facility] [id number] [facility], [place] [id number])[phone] Director: Dl Jean DO Eosinophils/100 WBC (Bld) 2 % Normal 0-4 [facility] Comment on above: Performed By: #### L IVP, BMPX, PT, CDP ####[facility] [id number] [facility], [place] [phone])[phone] Director: Dl Jean DO Erythrocyte distribution width (RBC) [Ratio] 16.4 % High 11.5-14.9 [facility] Comment on above: Performed By: #### L IVP, BMPX, PT, CDP ####[facility] [id number] [place] [address] lab Director: Dl Jean DO Hematocrit (Bld) [Volume fraction] 34.5 % Low 41-53 [facility] Comment on above: Performed By: #### L IVP, BMPX, PT, CDP ####[facility] Wok[address] [place] [address] lab Director: Dl Jean DO Hemoglobin (Bld) [Mass/Vol] 11.0 g/dL Low 13.5-17.5 [facility] Comment on above: Performed By: #### L IVP, BMPX, PT, CDP ####[facility] [id number] [place] [address].[place], [place] [id number])[phone] Director: Dl Jean DO Lymphocytes (Bld) [#/Vol] 1.10 10*3/uL Normal 1.0-4.8 [facility] Comment on above: Performed By: #### L IVP, BMPX, PT, CDP ####[facility] [id number] [facility] [place] [address] lab Director: Dl Jean DO Lymphocytes/100 WBC (Bld) 15 % Low 24-44 [facility] Comment on above: Performed By: #### L IVP, BMPX, PT, CDP ####[facility] [address] [place] [address].[place] [address] Lab Director: Dl Jean DO MCH (RBC) [Entitic mass] 29.8 pg Normal 26-34 [facility] Comment on above: Performed By: #### L IVP, BMPX, PT, CDP ####[facility] [address] [place], [place] [address].[place], [place] [phone] Director: Dl Jean DO MCHC (RBC) [Mass/Vol] 32.0 g/dL Normal 31-37 [facility] Comment on above: Performed By: #### L IVP, BMPX, PT, CDP ####[facility] [id number], [place] [id number])[phone] Director: Dl Jean DO MCV (RBC) [Entitic vol] 93.1 fL Normal 80-100 [facility] Comment on above: Performed By: #### L IVP, BMPX, PT, CDP ####[facility] [id number] [facility], [place] [id number])[phone] Director: Dl Jean DO Monocytes (Bld) [#/Vol] 0.80 10*3/uL Normal 0.1-1.3 [facility] Comment on above: Performed By: #### L IVP, BMPX, PT, CDP ####[address], [place] [address])[phone] Director: Dl Jean DO Monocytes/100 WBC (Bld) 11 % High 1-7 [facility] Comment on above: Performed By: #### L IVP, BMPX, PT, CDP ####[place] [address] [facility].[place], [place] [address])[phone] Director: Dl Jean DO Neutrophil (Seg) 71 % High 36-66 [facility] Comment on above: Performed By: #### L IVP, BMPX, PT, CDP ####[facility] [id number] [facility].[place], [place] [phone])[phone] Director: Dl Jean DO Platelet mean volume (Bld) [Entitic vol] 7.4 fL Normal 6.0-12.0 [facility] Comment on above: Performed By: #### L IVP, BMPX, PT, CDP ####[facility] [id number] [facility], [place] [id number])[phone] Director: Dl Jean DO Platelets (Bld) [#/Vol] 283 10*3/uL Normal 150-450 [facility] Comment on above: Performed By: #### L IVP, BMPX, PT, CDP ####[facility] [address] [place] [address] Lab Director: Dl Jean DO RBC (Bld) [#/Vol] 3.70 10*6/uL Low 4.5-5.9 [facility] Comment on above: Performed By: #### L IVP, BMPX, PT, CDP ####[facility] [id number] [facility] [place] [address] lab Director: Dl Jean DO WBC (Bld) [#/Vol] 7.0 10*3/uL Normal 3.5-11.0 [facility] Comment on above: Performed By: #### L IVP, BMPX, PT, CDP ####[facility] [id number] [facility] [place] [address] lab Director: Dl Jean DO Glucose,Whole Bloodon 2023 Glucose [Mass/Vol] 178 mg/dL High 75-110 [facility] Glucose [Mass/Vol] 191 mg/dL High 75-110 [facility] Glucose [Mass/Vol] 256 mg/dL High 75-110 [facility] Glucose [Mass/Vol] 136 mg/dL High 75-110 [facility] Glucose [Mass/Vol] 183 mg/dL High 75-110 [facility] Liver Profileon 07-20-2023 Albumin [Mass/Vol] 3.1 g/dL Low 3.5-5.2 [facility] Comment on above: Performed By: #### L IVP, BMPX, PT, CDP ####[facility] [id number] [facility] [place] [address] lab Director: Dl Jean DO Alkaline Phos 126 U/L Normal 40-129 [facility] Comment on above: Performed By: #### L IVP, BMPX, PT, CDP ####[facility] [id number] [facility] [place] [address] Lab Director: Dl Jean DO ALT [Catalytic activity/Vol] 73 U/L High 5-41 [facility] Comment on above: Performed By: #### L IVP, BMPX, PT, CDP ####[facility] [id number] [facility] [place] [address] lab Director: Dl Jean DO AST [Catalytic activity/Vol] 56 U/L High <40 [facility] Comment on above: Performed By: #### L IVP, BMPX, PT, CDP ####[facility] [id number] [facility] [place] [address] lab Director: Dl Jean DO Bilirubin [Mass/Vol] 0.5 mg/dL Normal 0.3-1.2 [facility] Comment on above: Performed By: #### L IVP, BMPX, PT, CDP ####[facility] [id number] [facility] [place] [address] Lab Director: Dl Jean DO Bilirubin, Indirect 0.3 mg/dL Normal 0.0-1.0 [facility] Comment on above: Performed By: #### L IVP, BMPX, PT, CDP ####[facility] [id number] [facility] [place] [address] Lab Director: Dl Jean DO Bilirubin.indirec t [Mass/Vol] 0.2 mg/dL Normal <0.3 [facility] Comment on above: Performed By: #### L IVP, BMPX, PT, CDP ####[facility] [id number] [facility] [place] [address] Lab Director: Dl Jean DO Protein [Mass/Vol] 5.8 g/dL Low 6.4-8.3 [facility] Comment on above: Performed By: #### L IVP, BMPX, PT, CDP ####[facility] [id number] [facility] [place] [address] lab Director: Dl Jean DO PTon 07-20-2023 INR Coag (PPP) [Relative time] 1.2 {INR} Normal [facility] Comment on above: Result Comment: Therapeutic Range: Moderate Anticoagulant Intensity: INR = 2.0-3.0 High Anticoagulant Intensity: INR = 2.5-3.5 Performed By: #### L IVP, BMPX, PT, CDP ####[facility] [id number] [place] [address] lab Director: Dl Jean DO PT Coag (PPP) [Time] 15.9 s High 11.8-14.6 [facility] Comment on above: Performed By: #### L IVP, BMPX, PT, CDP ####[facility] Oae9554 [place] [address] lab Director: Dl Jean DO Glucose,Whole Bloodon 2023 Glucose [Mass/Vol] 254 mg/dL High 75-110 [facility] Glucose [Mass/Vol] 155 mg/dL High 75-110 [facility] PTon 07-19-2023 INR Coag (PPP) [Relative time] 1.3 {INR} Normal [facility] Comment on above: Result Comment: Therapeutic Range: Moderate Anticoagulant Intensity: INR = 2.0-3.0 High Anticoagulant Intensity: INR = 2.5-3.5 Performed By: #### P T ####[address] [address] lab Director: Carlos Rowland MD PT Coag (PPP) [Time] 16.1 s High 11.7-14.9 [facility] Comment on above: Performed By: #### P T ####[facility] [address] [place], [place] [id number])[phone] Director: Carlos Rowland MD Basic Metabolic Profon 07-18 Anion gap [Moles/Vol] 10 mmol/L Normal 9-17 [facility] Comment on above: Performed By: #### P T, CDP, BMP, MG, RIANNA ####[facility] [address] [place], [place] [phone] Director: Carlos Rowland MD Calcium [Mass/Vol] 8.5 mg/dL Low 8.6-10.4 [facility] Comment on above: Performed By: #### P T, CDP, BMP, MG, RIANNA ####[facility] [address]xlfu[address] [place], [place] [address])[phone] Director: Carlos Rowland MD Chloride [Moles/Vol] 104 mmol/L Normal 98-107 [facility] Comment on above: Performed By: #### P T, CDP, BMP, MG, RIANNA ####[facility] [address]ks[address]nsre[address] [place], [place] [address])[phone] Director: Carlos Rowland MD CO2 [Moles/Vol] 24 mmol/L Normal 20-31 [facility] Comment on above: Performed By: #### P T, CDP, BMP, MG, RIANNA ####[facility] [address]jc[address] [place], [place] [phone])[phone] Director: Carlos Rowland MD Creatinine [Mass/Vol] 0.9 mg/dL Normal 0.7-1.2 [facility] Comment on above: Performed By: #### P T, CDP, BMP, MG, RIANNA ####[facility] [address] [place], [place] 65946419)[phone] Director: Carlos Rowland MD GFR/1.73 sq M.predicted among non-blacks MDRD (S/P/Bld) [Vol rate/Area] mL/min/{1.73_m2} Normal >60 [facility] Comment on above: Result Comment: These results [...] P T, CDP, BMP, MG, RIANNA ####[facility] [address] [place], [place] [id number])[phone] Director: Carlos Rowland MD Glucose [Mass/Vol] 121 mg/dL High 70-99 [facility] Comment on above: Performed By: #### P T, CDP, BMP, MG, RIANNA ####[facility] [address] [place], [place] [address])[phone] Director: Carlos Rowland MD Potassium [Moles/Vol] 4.4 mmol/L Normal 3.7-5.3 [facility] Comment on above: Performed By: #### P T, CDP, BMP, MG, RIANNA ####[facility] [address] [place], [place] [id number])[phone] Director: Carlos Rowland MD Sodium [Moles/Vol] 138 mmol/L Normal 135-144 [facility] Comment on above: Performed By: #### P T, CDP, BMP, MG, RIANNA ####[facility] [address] [place], [place] 99558419)[phone] Director: Carlos Rowland MD Urea nitrogen [Mass/Vol] 19 mg/dL Normal 8-23 [facility] Comment on above: Performed By: #### P T, CDP, BMP, MG, RIANNA ####[facility] [address]wt[address] [place], [place] 51674419)[phone] Director: Carlos Rowland MD CBC with Diffon 02-26-2024 Abs. Basophil 0.07 k/uL Normal 0.00-0.20 [facility] Comment on above: Performed By: #### P T, CDP, BMP, MG, RIANNA ####[facility] [address] [place], [place] [address])[phone] Director: Carlos Rowland MD Abs.Imm.Granulocy te <0.03 Normal 0.00-0.30 [facility] Comment on above: Performed By: #### P T, CDP, BMP, MG, RIANNA ####[facility] [address] [place], [place] [address])[phone] Director: Carlos Rowland MD Abs.Neutrophil (Seg) 5.21 k/uL Normal 1.50-8.10 [facility] Comment on above: Performed By: #### P T, CDP, BMP, MG, RIANNA ####[place], [place] [address])[phone] Director: Carlos Rowland MD Basophils/100 WBC (Bld) 1 % Normal 0-2 [facility] Comment on above: Performed By: #### P T, CDP, BMP, MG, RIANNA ####[facility] [address] [place], [place] [address])[phone] Director: Carlos Rowland MD Eosinophils (Bld) [#/Vol] 0.14 10*3/uL Normal 0.00-0.44 [facility] Comment on above: Performed By: #### P T, CDP, BMP, MG, RIANNA ####[facility] [address]swmn4[address] [place], [place] [address])[phone] Director: Carlos Rowland MD Eosinophils/100 WBC (Bld) 2 % Normal 1-4 [facility] Comment on above: Performed By: #### P T, CDP, BMP, MG, RIANNA ####[facility] [address] [place], [place] [address])[phone] Director: Carlos Rowland MD Erythrocyte distribution width (RBC) [Ratio] 15.3 % High 11.8-14.4 [facility] Comment on above: Performed By: #### P T, CDP, BMP, MG, RIANNA ####[address] [address])[phone] Director: Carlos Rowland MD Hematocrit (Bld) [Volume fraction] 31.7 % Low 40.7-50.3 [facility] Comment on above: Performed By: #### P T, CDP, BMP, MG, RIANNA ####[facility] [address] [place] [address])[phone] Director: Carlos Rowland MD Hemoglobin (Bld) [Mass/Vol] 10.4 g/dL Low 13.0-17.0 [facility] Comment on above: Performed By: #### P T, CDP, BMP, MG, RIANNA ####[address] [address])[phone] Director: Carlos Rowland MD Immature granulocytes/100 WBC (Bld) 0 % Normal 0 [facility] Comment on above: Performed By: #### P T, CDP, BMP, MG, RIANNA ####[address] [address])[phone] Director: Carlos Rowland MD Lymphocytes (Bld) [#/Vol] 1.29 10*3/uL Normal 1.10-3.70 [facility] Comment on above: Performed By: #### P T, CDP, BMP, MG, RIANNA ####[facility] [address] [place] [address])[phone] Director: Carlos Rowland MD Lymphocytes/100 WBC (Bld) 17 % Low 24-43 [facility] Comment on above: Performed By: #### P T, CDP, BMP, MG, RIANNA ####[address] [address])[phone] Director: Carlos Rowland MD MCH (RBC) [Entitic mass] 30.3 pg Normal 25.2-33.5 [facility] Comment on above: Performed By: #### P T, CDP, BMP, MG, RIANNA ####[facility] X[address] [place], [place] [address])[phone] Director: Carlos Rowland MD MCHC (RBC) [Mass/Vol] 32.8 g/dL Normal 28.4-34.8 [facility] Comment on above: Performed By: #### P T, CDP, BMP, MG, RIANNA ####[address] [address])[phone] Director: Carlos Rowland MD MCV (RBC) [Entitic vol] 92.4 fL Normal 82.6-102.9 [facility] Comment on above: Performed By: #### P T, CDP, BMP, MG, RIANNA ####[place], [place] [address])[phone] Director: Carlos Rowland MD Monocytes (Bld) [#/Vol] 0.81 10*3/uL Normal 0.10-1.20 [facility] Comment on above: Performed By: #### P T, CDP, BMP, MG, RIANNA ####[address] [address])[phone] Director: Carlos Rowland MD Monocytes/100 WBC (Bld) 11 % Normal 3-12 [facility] Comment on above: Performed By: #### P T, CDP, BMP, MG, RIANNA ####[facility] [address] [place] [address])[phone] Director: Carlos Rowland MD Neutrophil (Seg) 69 % High 36-65 [facility] Comment on above: Performed By: #### P T, CDP, BMP, MG, RIANNA ####[facility] [address] [place] [address] lab Director: Carlos Rowland MD NRBC Automated 0.0 per [address] [facility] Comment on above: Performed By: #### P T, CDP, BMP, MG, RIANNA ####[place] [place] [address] Lab Director: Carlos Rowland MD Platelet mean volume (Bld) [Entitic vol] 9.8 fL Normal 8.1-13.5 [facility] Comment on above: Performed By: #### P T, CDP, BMP, MG, RIANNA ####[address] [address] Lab Director: Carlos Rowland MD Platelets (Bld) [#/Vol] 238 10*3/uL Normal 138-453 [facility] Comment on above: Performed By: #### P T, CDP, BMP, MG, RIANNA ####[address] [address])[phone] Director: Carlos Rowland MD RBC (Bld) [#/Vol] 3.43 10*6/uL Low 4.21-5.77 [facility] Comment on above: Performed By: #### P T, CDP, BMP, MG, RIANNA ####[address] [address] Lab Director: Carlos Rowland MD RBC morphology finding Nom (Bld) ANISOCYTOSIS PRESENT Normal [facility] Comment on above: Performed By: #### P T, CDP, BMP, MG, RIANNA ####[facility] [address] [place] [address] Lab Director: Carlos Rowland MD WBC (Bld) [#/Vol] 7.5 10*3/uL Normal 3.5-11.3 [facility] Comment on above: Performed By: #### P T, CDP, BMP, MG, RIANNA ####[address] [phone] lab Director: Carlos Rowland MD Cult,Bloodon 07-18-2023 Cult,Blood Specimen Description .BLOOD Special Requests RT HAND 1 ML Culture NO GROWTH 5 DAYS Report Status FINAL 07/18/[address] [facility] Comment on above: Performed By: #### B C ####[facility] [address] [place], [place] [id number] lab Director: Carlos Rowland MD Cult,Blood Specimen Description .BLOOD Special Requests LEFT HAND 1 ML Culture NO GROWTH 5 DAYS Report Status FINAL 07/18/[address] [facility] Comment on above: Performed By: #### B C ####[facility] [address]ypuq[address] [place], [place] [id number] lab Director: Carlos Rowland MD Glucose,Whole Bloodon 2023 Glucose [Mass/Vol] 255 mg/dL High 75-110 [facility] Glucose [Mass/Vol] 311 mg/dL High 75-110 [facility] Glucose [Mass/Vol] 142 mg/dL High 75-110 [facility] Glucose [Mass/Vol] 312 mg/dL High 75-110 [facility] Glucose [Mass/Vol] 178 mg/dL High 75-110 [facility] Glucose [Mass/Vol] 167 mg/dL High 75-110 [facility] Magnesiumon 07-18-2023 Magnesium [Mass/Vol] 1.9 mg/dL Normal 1.6-2.6 [facility] Comment on above: Performed By: #### P T, CDP, BMP, MG, RIANNA ####[facility] [address] [place] [address] lab Director: Carlos Rowland MD PTon 07-18-2023 INR Coag (PPP) [Relative time] 1.3 {INR} Normal [facility] Comment on above: Result Comment: Therapeutic Range: Moderate Anticoagulant Intensity: INR = 2.0-3.0 High Anticoagulant Intensity: INR = 2.5-3.5 Performed By: #### P T, CDP, BMP, MG, RIANNA ####[facility] [address] [place], [place] [phone] Director: Carlos Rowland MD PT Coag (PPP) [Time] 15.8 s High 11.7-14.9 [facility] Comment on above: Performed By: #### P T, CDP, BMP, MG, RIANNA ####[facility] [address] [place] [address])[phone] Director: Carlos Rowland MD Phosphorus, Inorg.on 024 Phosphorus, Inorg. 3.6 mg/dL Normal 2.5-4.5 [facility] Comment on above: Performed By: #### P T, CDP, BMP, MG, RIANNA ####[address] [address])[phone] Director: Carlos Rowland MD Basic Metabolic Profon 07-17 Anion gap [Moles/Vol] 8 mmol/L Low 9-17 [facility] Comment on above: Performed By: #### C DP, BMP, MG, RIANNA, PT ####[facility] [address] [place] [address])[phone] Director: Carlos Rowland MD Calcium [Mass/Vol] 8.6 mg/dL Normal 8.6-10.4 [facility] Comment on above: Performed By: #### C DP, BMP, MG, RIANNA, PT ####[facility] [address] [place], [place] [address])[phone] Director: Carlos Rowland MD Chloride [Moles/Vol] 102 mmol/L Normal 98-107 [facility] Comment on above: Performed By: #### C DP, BMP, MG, RIANNA, PT ####[facility] [address] [place], [place] [address])[phone] Director: Carlos Rowland MD CO2 [Moles/Vol] 23 mmol/L Normal 20-31 [facility] Comment on above: Performed By: #### C DP, BMP, MG, RIANNA, PT ####[address] [address] Lab Director: Carlos Rowland MD Creatinine [Mass/Vol] 0.9 mg/dL Normal 0.7-1.2 [facility] Comment on above: Performed By: #### C DP, BMP, MG, RIANNA, PT ####[address] [address] Lab Director: Carlos Rowland MD GFR/1.73 sq M.predicted among non-blacks MDRD (S/P/Bld) [Vol rate/Area] mL/min/{1.73_m2} Normal >60 [facility] Comment on above: Result Comment: These results [...] #### C DP, BMP, MG, RIANNA, PT ####[address] [address] Lab Director: Carlos Rowland MD Glucose [Mass/Vol] 169 mg/dL High 70-99 [facility] Comment on above: Performed By: #### C DP, BMP, MG, RIANNA, PT ####[facility] [address] [place] [address] Lab Director: Carlos Rowland MD Potassium [Moles/Vol] 4.8 mmol/L Normal 3.7-5.3 [facility] Comment on above: Performed By: #### C DP, BMP, MG, RIANNA, PT ####[facility] [address] [place] [address], [place] [address])[phone] Director: Carlos Rowland MD Sodium [Moles/Vol] 133 mmol/L Low 135-144 [facility] Comment on above: Performed By: #### C DP, BMP, MG, RIANNA, PT ####[address] [address])[phone] Director: Carlos Rowland MD Urea nitrogen [Mass/Vol] 22 mg/dL Normal 8-23 [facility] Comment on above: Performed By: #### C DP, BMP, MG, RIANNA, PT ####[place], [place] [address])[phone] Director: Carlos Rowland MD CBC with Diffon 07-17-2023 Abs. Basophil 0.09 k/uL Normal 0.00-0.20 [facility] Comment on above: Performed By: #### C DP, BMP, MG, RIANNA, PT ####[facility] [address] [place], [place] [address])[phone] Director: Carlos Rowland MD Abs.Imm.Granulocy te 0.04 k/uL Normal 0.00-0.30 [facility] Comment on above: Performed By: #### C DP, BMP, MG, RIANNA, PT ####[place], [place] [address])[phone] Director: Carlos Rowland MD Abs.Neutrophil (Seg) 5.58 k/uL Normal 1.50-8.10 [facility] Comment on above: Performed By: #### C DP, BMP, MG, RIANNA, PT ####[facility] [address] [place], [place] [address])[phone] Director: Carlos Rowland MD Basophils/100 WBC (Bld) 1 % Normal 0-2 [facility] Comment on above: Performed By: #### C DP, BMP, MG, RIANNA, PT ####[place] [address] Lab Director: Carlos Rowland MD Eosinophils (Bld) [#/Vol] 0.16 10*3/uL Normal 0.00-0.44 [facility] Comment on above: Performed By: #### C DP, BMP, MG, RIANNA, PT ####[place] [address] Lab Director: Carlos Rowland MD Eosinophils/100 WBC (Bld) 2 % Normal 1-4 [facility] Comment on above: Performed By: #### C DP, BMP, MG, RIANNA, PT ####[place], [place] [address])[phone] Director: Carlos Rowland MD Erythrocyte distribution width (RBC) [Ratio] 15.3 % High 11.8-14.4 [facility] Comment on above: Performed By: #### C DP, BMP, MG, RIANNA, PT ####[place], [place] [address])[phone] Director: Carlos Rowland MD Hematocrit (Bld) [Volume fraction] 35.8 % Low 40.7-50.3 [facility] Comment on above: Performed By: #### C DP, BMP, MG, RIANNA, PT ####[place], [place] [address])[phone] Director: Carlos Rowland MD Hemoglobin (Bld) [Mass/Vol] 11.2 g/dL Low 13.0-17.0 [facility] Comment on above: Performed By: #### C DP, BMP, MG, RIANNA, PT ####[place], [place] [address])[phone] Director: Carlos Rowland MD Immature granulocytes/100 WBC (Bld) 1 % High 0 [facility] Comment on above: Performed By: #### C DP, BMP, MG, RIANNA, PT ####[facility] [address] [place] [address] Lab Director: Carlos Rowland MD Lymphocytes (Bld) [#/Vol] 1.11 10*3/uL Normal 1.10-3.70 [facility] Comment on above: Performed By: #### C DP, BMP, MG, RIANNA, PT ####[facility] [address] [place] [address])[phone] Director: Carlos Rowland MD Lymphocytes/100 WBC (Bld) 14 % Low 24-43 [facility] Comment on above: Performed By: #### C DP, BMP, MG, RIANNA, PT ####[facility] [address] [place], [place] [address])[phone] Director: Carlos Rowland MD MCH (RBC) [Entitic mass] 29.4 pg Normal 25.2-33.5 [facility] Comment on above: Performed By: #### C DP, BMP, MG, RIANNA, PT ####[facility] [address] [place] [address])[phone] Director: Carlos Rowland MD MCHC (RBC) [Mass/Vol] 31.3 g/dL Normal 28.4-34.8 [facility] Comment on above: Performed By: #### C DP, BMP, MG, RIANNA, PT ####[facility] [address] [place] [address])[phone] Director: Carlos Rowland MD MCV (RBC) [Entitic vol] 94.0 fL Normal 82.6-102.9 [facility] Comment on above: Performed By: #### C DP, BMP, MG, RIANNA, PT ####[facility] [address] [place] [address])[phone] Director: Carlos Rowland MD Monocytes (Bld) [#/Vol] 0.74 10*3/uL Normal 0.10-1.20 [facility] Comment on above: Performed By: #### C DP, BMP, MG, RIANNA, PT ####[facility] [address] [place], [place] [phone] Director: Carlos Rowland MD Monocytes/100 WBC (Bld) 10 % Normal 3-12 [facility] Comment on above: Performed By: #### C DP, BMP, MG, RIANNA, PT ####[address] [address])[phone] Director: Carlos Rowland MD Neutrophil (Seg) 72 % High 36-65 [facility] Comment on above: Performed By: #### C DP, BMP, MG, RIANNA, PT ####[address] [address])[phone] Director: Carlos Rowland MD NRBC Automated 0.0 per [address] [facility] Comment on above: Performed By: #### C DP, BMP, MG, RIANNA, PT ####[facility] [address] [place] [address])[phone] Director: Carlos Rowland MD Platelet mean volume (Bld) [Entitic vol] 9.7 fL Normal 8.1-13.5 [facility] Comment on above: Performed By: #### C DP, BMP, MG, RIANNA, PT ####[facility] [address] [place] [address])[phone] Director: Carlos Rowland MD Platelets (Bld) [#/Vol] 235 10*3/uL Normal 138-453 [facility] Comment on above: Performed By: #### C DP, BMP, MG, RIANNA, PT ####[facility] [address] [place] [address] [phone] Director: Carlos Rowland MD RBC (Bld) [#/Vol] 3.81 10*6/uL Low 4.21-5.77 [facility] Comment on above: Performed By: #### C DP, BMP, MG, RIANNA, PT ####[facility] [address] [place] [address] Lab Director: Carlos Rowland MD RBC morphology finding Nom (Bld) ANISOCYTOSIS PRESENT Normal [facility] Comment on above: Performed By: #### C DP, BMP, MG, RIANNA, PT ####[address] [phone] Director: Carlos Rowland MD WBC (Bld) [#/Vol] 7.7 10*3/uL Normal 3.5-11.3 [facility] Comment on above: Performed By: #### C DP, BMP, MG, RIANNA, PT ####[address] [address])[phone] Director: Carlos Rowland MD Glucose,Whole Bloodon 2023 Glucose [Mass/Vol] 251 mg/dL High 75-110 [facility] Glucose [Mass/Vol] 185 mg/dL High 75-110 [facility] Glucose [Mass/Vol] 293 mg/dL High 75-110 [facility] Magnesiumon 07-17-2023 Magnesium [Mass/Vol] 1.9 mg/dL Normal 1.6-2.6 [facility] Comment on above: Performed By: #### C DP, BMP, MG, RIANNA, PT ####[facility] [address] [place] [address] [phone] Director: Carlos Rowland MD PTon 07-17-2023 INR Coag (PPP) [Relative time] 1.2 {INR} Normal [facility] Comment on above: Result Comment: Therapeutic Range: Moderate Anticoagulant Intensity: INR = 2.0-3.0 High Anticoagulant Intensity: INR = 2.5-3.5 Performed By: #### C DP, BMP, MG, RIANNA, PT ####[address] [address] [facility] Director: Carlos Rowland MD PT Coag (PPP) [Time] 14.9 s Normal 11.7-14.9 [facility] Comment on above: Performed By: #### C DP, BMP, MG, RIANNA, PT ####[facility] [address] [place] [address] Lab Director: Carlos Rowland MD Phosphorus, Inorg.on 024 Phosphorus, Inorg. 3.1 mg/dL Normal 2.5-4.5 [facility] Comment on above: Performed By: #### C DP, BMP, MG, RIANNA, PT ####[facility] [address] [place] [address] [facility] Director: Carlos Rowland MD Basic Metabolic Profon 07-16 Anion gap [Moles/Vol] 11 mmol/L Normal 9-17 [facility] Comment on above: Performed By: #### U AX, UMICAO #### [facility] [address] [place] [phone] Shipping Packer: Carlos Rowland MD Calcium [Mass/Vol] 8.3 mg/dL Low 8.6-10.4 [facility] Comment on above: Performed By: #### U AX, UMICAO #### [facility] [address] [place] [phone] Shipping Packer: Carlso Rowland MD Chloride [Moles/Vol] 103 mmol/L Normal 98-107 [facility] Comment on above: Performed By: #### U AX, UMICAO #### [facility] [address] [place] [phone] Shipping Packer: Carlos Rowland MD CO2 [Moles/Vol] 22 mmol/L Normal 20-31 [facility] Comment on above: Performed By: #### U AX, UMICAO #### [facility] [address] [place] [phone] Shipping Packer: Carlos Rowland MD Creatinine [Mass/Vol] 1.0 mg/dL Normal 0.7-1.2 [facility] Comment on above: Performed By: #### U AX UMICAO #### [facility] [address] [place] [phone] Shipping Packer: Carlos Rowland MD GFR/1.73 sq M.predicted among non-blacks MDRD (S/P/Bld) [Vol rate/Area] mL/min/{1.73_m2} Normal >60 [facility] Comment on above: Result Comment: These results [...] secretion. Performed By: #### U AXJUSTINAICAO #### [facility] [address] [place] [address] Shipping Packer: Carlos Rowland MD Glucose [Mass/Vol] 160 mg/dL High 70-99 [facility] Comment on above: Performed By: #### U AX UMICAO #### [facility] [address] [place] [address] Shipping Packer: Carlos Rowland MD Potassium [Moles/Vol] 4.3 mmol/L Normal 3.7-5.3 [facility] Comment on above: Performed By: #### U AX UMICAO #### [facility] [address] [place] [address] Shipping Packer: Carlos Rowland MD Sodium [Moles/Vol] 136 mmol/L Normal 135-144 [facility] Comment on above: Performed By: #### U AX UMICAO #### [facility] [address] [place] [address] [place] [address] Shipping Packer: Carlos Rowland MD Urea nitrogen [Mass/Vol] 23 mg/dL Normal 8-23 [facility] Comment on above: Performed By: #### U AX, UMICAO #### [address] [address] Shipping Packer: Carlos Rowland MD CBC with Diffon 07-16-2023 Abs. Basophil 0.07 k/uL Normal 0.00-0.20 [facility] Comment on above: Performed By: #### U AX, UMICAO #### [address] [phone] Shipping Packer: Carlos Rowland MD Abs.Imm.Granulocy te 0.04 k/uL Normal 0.00-0.30 [facility] Comment on above: Performed By: #### U AX, UMICAO #### [address] [address] Shipping Packer: Carlos Rowland MD Abs.Neutrophil (Seg) 7.16 k/uL Normal 1.50-8.10 [facility] Comment on above: Performed By: #### U AX, UMICAO #### [facility] [address] [place] [address] Shipping Packer: Carlos Rowland MD Basophils/100 WBC (Bld) 1 % Normal 0-2 [facility] Comment on above: Performed By: #### U AX, UMICAO #### [address] [address] Shipping Packer: Carlos Rowland MD Eosinophils (Bld) [#/Vol] 0.19 10*3/uL Normal 0.00-0.44 [facility] Comment on above: Performed By: #### U AX, UMICAO #### [facility] [address] [place] [address] Shipping Packer: Carlos Rowland MD Eosinophils/100 WBC (Bld) 2 % Normal 1-4 [facility] Comment on above: Performed By: #### U AX, UMICAO #### [facility] [address] [place] [address] Shipping Packer: Carlos Rowland MD Erythrocyte distribution width (RBC) [Ratio] 15.2 % High 11.8-14.4 [facility] Comment on above: Performed By: #### U AX, UMICAO #### [facility] [address] [place] [address] Shipping Packer: Carlos Rowland MD Hematocrit (Bld) [Volume fraction] 35.9 % Low 40.7-50.3 [facility] Comment on above: Performed By: #### U AX UMICAO #### [facility] [address] [place] [address] Shipping Packer: Carlos Rowland MD Hemoglobin (Bld) [Mass/Vol] 11.2 g/dL Low 13.0-17.0 [facility] Comment on above: Performed By: #### U AX, UMICAO #### [facility] [address] [place] [address] Shipping Packer: Carlos Rowland MD Immature granulocytes/100 WBC (Bld) 0 % Normal 0 [facility] Comment on above: Performed By: #### U AX, UMICAO #### [facility] [address] [place] [address] Shipping Packer: Carlos Rowland MD Lymphocytes (Bld) [#/Vol] 1.36 10*3/uL Normal 1.10-3.70 [facility] Comment on above: Performed By: #### U AX, UMICAO #### [facility] [address] [place] [address] Shipping Packer: Carlos Rowland MD Lymphocytes/100 WBC (Bld) 14 % Low 24-43 [facility] Comment on above: Performed By: #### U AX UMICAO #### [facility] [address] [place] [phone] Shipping Packer: Carlos Rowland MD MCH (RBC) [Entitic mass] 29.9 pg Normal 25.2-33.5 [facility] Comment on above: Performed By: #### U AX, UMICAO #### [facility] [address] [place] [address] Shipping Packer: Carlos Rowland MD MCHC (RBC) [Mass/Vol] 31.2 g/dL Normal 28.4-34.8 [facility] Comment on above: Performed By: #### U AX, UMICAO #### [address] [address] Shipping Packer: Carlos Rowland MD MCV (RBC) [Entitic vol] 96.0 fL Normal 82.6-102.9 [facility] Comment on above: Performed By: #### U AXJUSTINAICAO #### [address] [address] Shipping Packer: Carlos Rowland MD Monocytes (Bld) [#/Vol] 0.92 10*3/uL Normal 0.10-1.20 [facility] Comment on above: Performed By: #### U AX, UMICAO #### [facility] [address] [place] [address] Shipping Packer: Carlos Rowland MD Monocytes/100 WBC (Bld) 9 % Normal 3-12 [facility] Comment on above: Performed By: #### U AX, UMICAO #### [facility] [address] [place] [address] Shipping Packer: Carlos Rowland MD Neutrophil (Seg) 74 % High 36-65 [facility] Comment on above: Performed By: #### U AX, UMICAO #### [address] [address] Shipping Packer: Carlos Rowland MD NRBC Automated 0.0 per [address] [facility] Comment on above: Performed By: #### U AX, UMICAO #### [address] [address] Shipping Packer: Carlos Rowland MD Platelet mean volume (Bld) [Entitic vol] 9.9 fL Normal 8.1-13.5 [facility] Comment on above: Performed By: #### U AX, UMICAO #### [address] [address] Shipping Packer: Carlos Rowland MD Platelets (Bld) [#/Vol] 223 10*3/uL Normal 138-453 [facility] Comment on above: Performed By: #### U AX, UMICAO #### [address] [address] Shipping Packer: Carlos Rowland MD RBC (Bld) [#/Vol] 3.74 10*6/uL Low 4.21-5.77 [facility] Comment on above: Performed By: #### U AX UMICAO #### [address] [address] Shipping Packer: Carlos Rowland MD RBC morphology finding Nom (Bld) ANISOCYTOSIS PRESENT Normal [facility] Comment on above: Performed By: #### U AX, UMICAO #### [address] [address] Shipping Packer: Carlos Rowland MD WBC (Bld) [#/Vol] 9.7 10*3/uL Normal 3.5-11.3 [facility] Comment on above: Performed By: #### U AXJAMMIEO #### [facility] [place], [place] [phone] Shipping Packer: Carlos Rowland MD Glucose,Whole Bloodon 2023 Glucose [Mass/Vol] 220 mg/dL High 75-110 [facility] Glucose [Mass/Vol] 156 mg/dL High 75-110 [facility] Glucose [Mass/Vol] 267 mg/dL High 75-110 [facility] Glucose [Mass/Vol] 167 mg/dL High 75-110 [facility] Magnesiumon 07-16-2023 Magnesium [Mass/Vol] 2.0 mg/dL Normal 1.6-2.6 [facility] Comment on above: Performed By: #### U AXLUZ MARIA #### [facility] [address] [place] [address] [phone] Shipping Packer: Carlos Rowland MD PTon 07-16-2023 INR Coag (PPP) [Relative time] 1.3 {INR} Normal [facility] Comment on above: Result Comment: Therapeutic Range: Moderate Anticoagulant Intensity: INR = 2.0-3.0 High Anticoagulant Intensity: INR = 2.5-3.5 Performed By: #### U LUZ MARIA MCQUEEN #### [facility] [address] [place] [address] [phone] Shipping Packer: Carlos Rowland MD PT Coag (PPP) [Time] 15.9 s High 11.7-14.9 [facility] Comment on above: Performed By: #### U AX UMICAO #### [facility] [address] [place] [address] [phone] Shipping Packer: Carlos Rowland MD Phosphorus, Inorg.on 024 Phosphorus, Inorg. 3.3 mg/dL Normal 2.5-4.5 [facility] Comment on above: Performed By: #### U AXLUZ MARIA #### [facility] [address] [place] [address] [place] [address] Shipping Packer: Carlos Rowland MD Basic Metabolic Profon 07-15 Anion gap [Moles/Vol] 12 mmol/L Normal 9-17 [facility] Comment on above: Performed By: #### M G, CDP, BMP, RIANNA ####[facility] [address] [place], [place] [phone] Director: Carlos Rowland MD Calcium [Mass/Vol] 8.5 mg/dL Low 8.6-10.4 [facility] Comment on above: Performed By: #### M G, CDP, BMP, RIANNA ####[facility] [address] [place], [place] [phone] Director: Carlos Rowland MD Chloride [Moles/Vol] 102 mmol/L Normal 98-107 [facility] Comment on above: Performed By: #### M G, CDP, BMP, RIANNA ####[facility] [address] [place], [place] [phone] Director: Carlos Rowland MD CO2 [Moles/Vol] 19 mmol/L Low 20-31 [facility] Comment on above: Performed By: #### M G, CDP, BMP, RIANNA ####[facility] [address] [place], [place] [phone] Director: Carlos Rowland MD Creatinine [Mass/Vol] 1.1 mg/dL Normal 0.7-1.2 [facility] Comment on above: Performed By: #### M G, CDP, BMP, RIANNA ####[facility] [address] [place], [place] [phone] Director: Carlos Rowland MD GFR/1.73 sq M.predicted among non-blacks MDRD (S/P/Bld) [Vol rate/Area] mL/min/{1.73_m2} Normal >60 [facility] Comment on above: Result Comment: These results [...] affects renal tubular secretion. Performed By: #### M April, CDP, BMP, RIANNA ####[facility] [address] [place], [place] [address])[phone] Director: Carlos Rowland MD Glucose [Mass/Vol] 154 mg/dL High 70-99 [facility] Comment on above: Performed By: #### M April, MAHOGANY, BMP, RIANNA ####[facility] [address] [place], [place] [address])[phone] Director: Carlos Rowland MD Potassium [Moles/Vol] 4.3 mmol/L Normal 3.7-5.3 [facility] Comment on above: Performed By: #### M G, CDP, BMP, RIANNA ####[facility] [address] [place], [place] [address])[phone] Director: Carlos Rowland MD Sodium [Moles/Vol] 133 mmol/L Low 135-144 [facility] Comment on above: Performed By: #### M April, MAHOGANY, BMP, RIANNA ####[facility] [address] [place], [place] [address])[phone] Director: Carlos Rowland MD Urea nitrogen [Mass/Vol] 27 mg/dL High 8-23 [facility] Comment on above: Performed By: #### M G, CDP, BMP, RIANNA ####[facility] [address] [place], [place] [address])[phone] Director: Carlos Rowland MD CBC with Diffon 07-15-2023 Abs. Basophil 0.06 k/uL Normal 0.00-0.20 [facility] Comment on above: Performed By: #### M G, CDP, BMP, RIANNA ####[facility] [address] [place], [place] [address])[phone] Director: Carlos Rowland MD Abs.Imm.Granulocy te 0.04 k/uL Normal 0.00-0.30 [facility] Comment on above: Performed By: #### M G, CDP, BMP, RIANNA ####[facility] [address] [place], [place] [address])[phone] Director: Carlos Rowland MD Abs.Neutrophil (Seg) 6.54 k/uL Normal 1.50-8.10 [facility] Comment on above: Performed By: #### M G, CDP, BMP, RIANNA ####[facility] [address] [place], [place] [address])[phone] Director: Carlos Rowland MD Basophils/100 WBC (Bld) 1 % Normal 0-2 [facility] Comment on above: Performed By: #### M G, CDP, BMP, RIANNA ####[facility] [address] [place], [place] [address])[phone] Director: Carlos Rowland MD Eosinophils (Bld) [#/Vol] 0.26 10*3/uL Normal 0.00-0.44 [facility] Comment on above: Performed By: #### M G, CDP, BMP, RIANNA ####[facility] [address] [place], [place] [address])[phone] Director: Carlos Rowland MD Eosinophils/100 WBC (Bld) 3 % Normal 1-4 [facility] Comment on above: Performed By: #### M G, CDP, BMP, RIANNA ####[facility] [address] [place], [place] [address])[phone] Director: Carlos Rowland MD Erythrocyte distribution width (RBC) [Ratio] 15.2 % High 11.8-14.4 [facility] Comment on above: Performed By: #### M G, CDP, BMP, RIANNA ####[facility] [address] [place] [address] Lab Director: Carlos Rowland MD Hematocrit (Bld) [Volume fraction] 39.1 % Low 40.7-50.3 [facility] Comment on above: Performed By: #### M G, CDP, BMP, RIANNA ####[facility] [address] [place], [place] [phone] Director: Carlos Rowland MD Hemoglobin (Bld) [Mass/Vol] 11.9 g/dL Low 13.0-17.0 [facility] Comment on above: Performed By: #### M G, CDP, BMP, RIANNA ####[address] [address])[phone] Director: Carlos Rowland MD Immature granulocytes/100 WBC (Bld) 0 % Normal 0 [facility] Comment on above: Performed By: #### M G, CDP, BMP, RIANNA ####[facility] [address] [place] [address])[phone] Director: Carlos Rowland MD Lymphocytes (Bld) [#/Vol] 1.23 10*3/uL Normal 1.10-3.70 [facility] Comment on above: Performed By: #### M G, CDP, BMP, RIANNA ####[facility] [address] [place] [address] [phone] Director: Carlos Rowland MD Lymphocytes/100 WBC (Bld) 14 % Low 24-43 [facility] Comment on above: Performed By: #### M G, CDP, BMP, RIANNA ####[facility] [address] [place] [address])[phone] Director: Carlos Rowland MD MCH (RBC) [Entitic mass] 29.5 pg Normal 25.2-33.5 [facility] Comment on above: Performed By: #### M G, CDP, BMP, RIANNA ####[facility] [address] [place], [place] [phone] Director: Carlos Rowland MD MCHC (RBC) [Mass/Vol] 30.4 g/dL Normal 28.4-34.8 [facility] Comment on above: Performed By: #### M G, CDP, BMP, RIANNA ####[address] [phone] Director: Carlos Rowland MD MCV (RBC) [Entitic vol] 97.0 fL Normal 82.6-102.9 [facility] Comment on above: Performed By: #### M G, CDP, BMP, RIANNA ####[address] [phone] Director: Carlos Rowland MD Monocytes (Bld) [#/Vol] 0.85 10*3/uL Normal 0.10-1.20 [facility] Comment on above: Performed By: #### M G, CDP, BMP, RIANNA ####[address] [phone] Director: Carlos Rowland MD Monocytes/100 WBC (Bld) 10 % Normal 3-[address] [facility] [facility] Comment on above: Performed By: #### M G, CDP, BMP, RIANNA ####[address] [phone] Director: Carlos Rowland MD Neutrophil (Seg) 72 % High 36-65 [facility] Comment on above: Performed By: #### M G, CDP, BMP, RIANNA ####[facility] [address] [place] [address] [phone] Director: Carlos Rowland MD NRBC Automated 0.0 per [address] [facility] Comment on above: Performed By: #### M G, CDP, BMP, RIANNA ####[facility] [address] [place] [address] [phone] Director: Carlos Rowland MD Platelet mean volume (Bld) [Entitic vol] 9.9 fL Normal 8.1-13.5 [facility] Comment on above: Performed By: #### M April, CDP, BMP, RIANNA ####[facility] [address]ax[address] [place], [place] [phone] Director: Carlos Rowland MD Platelets (Bld) [#/Vol] 206 10*3/uL Normal 138-453 [facility] Comment on above: Performed By: #### M April, CDP, BMP, RIANNA ####[facility] Ts[address]bidxmce[address] [place], [place] [phone] Director: Carlos Rowland MD RBC (Bld) [#/Vol] 4.03 10*6/uL Low 4.21-5.77 [facility] Comment on above: Performed By: #### [place] Chen, CDP, BMP, RIANNA ####[facility] [address] [place], [place] [phone] Director: Carlos Rowland MD RBC morphology finding Nom (Bld) ANISOCYTOSIS PRESENT Normal [facility] Comment on above: Performed By: #### M April, CDP, BMP, RIANNA ####[facility] Ftbfqgnwxycj73[address] [place], [place] [phone] Director: Carlos Rowland MD WBC (Bld) [#/Vol] 9.0 10*3/uL Normal 3.5-11.3 [facility] Comment on above: Performed By: #### M April, CDP, BMP, RIANNA ####[facility] [address]rsih[address] [place], [place] [phone] Director: Carlos Rowland MD Glucose,Whole Bloodon 2023 Glucose [Mass/Vol] 175 mg/dL High 75-110 [facility] Glucose [Mass/Vol] 169 mg/dL High 75-110 [facility] Glucose [Mass/Vol] 273 mg/dL High 75-110 [facility] Glucose [Mass/Vol] 157 mg/dL High 75-110 [facility] Magnesiumon 07-15-2023 Magnesium [Mass/Vol] 2.2 mg/dL Normal 1.6-2.6 [facility] Comment on above: Performed By: #### M G, CDP, BMP, RIANNA ####[facility] [address] [place], [place] [phone] Director: Carlos Rowland MD PTon 07-15-2023 INR Coag (PPP) [Relative time] 1.4 {INR} Normal [facility] Comment on above: Result Comment: Therapeutic Range: Moderate Anticoagulant Intensity: INR = 2.0-3.0 High Anticoagulant Intensity: INR = 2.5-3.5 Performed By: #### P T ####[address] [phone] Director: Carlos Rowland MD PT Coag (PPP) [Time] 16.5 s High 11.7-14.9 [facility] Comment on above: Performed By: #### P T ####[facility] [address] [place] [address] [phone] Director: Carlos Rowland MD Phosphorus, Inorg.on 024 Phosphorus, Inorg. 3.8 mg/dL Normal 2.5-4.5 [facility] Comment on above: Performed By: #### M G, CDP, BMP, RIANNA ####[facility] [address]ysxljuaavnl[address] [place], [place] [phone] Director: Carlos Rowland MD Basic Metabolic Profon 07-14 Anion gap [Moles/Vol] 10 mmol/L Normal 9-17 [facility] Comment on above: Performed By: #### B MP, CDP, MG, RIANNA ####[facility] [address] [place], [place] [phone] Director: Carlos Rowland MD Calcium [Mass/Vol] 8.5 mg/dL Low 8.6-10.4 [facility] Comment on above: Performed By: #### B MP, CDP, MG, RIANNA ####[facility] Soazz[address]ommt[address] [place], [place] [phone] Director: Carlos Rowland MD Chloride [Moles/Vol] 103 mmol/L Normal 98-107 [facility] Comment on above: Performed By: #### B MP, CDP, MG, RIANNA ####[facility] [address] [place], [place] [phone] Director: Carlos Rowland MD CO2 [Moles/Vol] 23 mmol/L Normal 20-31 [facility] Comment on above: Performed By: #### B MP, CDP, MG, RIANNA ####[address] [phone] Director: Carlos Rowland MD Creatinine [Mass/Vol] 1.0 mg/dL Normal 0.7-1.2 [facility] Comment on above: Performed By: #### B MP, CDP, MG, RIANNA ####[address] [phone] Director: Carlos Rowland MD GFR/1.73 sq M.predicted among non-blacks MDRD (S/P/Bld) [Vol rate/Area] mL/min/{1.73_m2} Normal >60 [facility] Comment on above: Result Comment: These results [...] By: #### B MP, CDP, MG, RIANNA ####[facility] [address]ir[address] [place], [place] [phone] Director: Carlos Rowland MD Glucose [Mass/Vol] 154 mg/dL High 70-99 [facility] Comment on above: Performed By: #### B MP, CDP, MG, RIANNA ####[facility] [address] [place], [place] [phone] Director: Carlos Rowland MD Potassium [Moles/Vol] 3.9 mmol/L Normal 3.7-5.3 [facility] Comment on above: Performed By: #### B MP, CDP, MG, RIANNA ####[facility] [address]ckqza[address] [place], [place] [address])[phone] Director: Carlos Rowland MD Sodium [Moles/Vol] 136 mmol/L Normal 135-144 [facility] Comment on above: Performed By: #### B MP, CDP, MG, RIANNA ####[facility] [address]mpfuambwp79[address] [place], [place] [address])[phone] Director: Carlos Rowland MD Urea nitrogen [Mass/Vol] 24 mg/dL High 8-23 [facility] Comment on above: Performed By: #### B MP, CDP, MG, RIANNA ####[facility] [address] [place], [place] [address])[phone] Director: Carlos Rowland MD CBC with Diffon 07-14-2023 Abs. Basophil 0.03 k/uL Normal 0.00-0.20 [facility] Comment on above: Performed By: #### B MP, CDP, MG, RIANNA ####[facility] [address] [place], [place] [address])[phone] Director: Carlos Rowland MD Abs.Imm.Granulocy te 0.08 k/uL Normal 0.00-0.30 [facility] Comment on above: Performed By: #### B MP, CDP, MG, RIANNA ####[facility] [address]ul[address] [place], [place] [address])[phone] Director: Carlos Rowland MD Abs.Neutrophil (Seg) 10.21 k/uL High 1.50-8.10 [facility] Comment on above: Performed By: #### B MP, CDP, MG, RIANNA ####[facility] Lcydbexlmrsk6[address] [place] [address] Lab Director: Carlos Rowland MD Basophils/100 WBC (Bld) 0 % Normal 0-2 [facility] Comment on above: Performed By: #### B MP, CDP, MG, RIANNA ####[facility] [address] [place], [place] [address])[phone] Director: Carlos Rowland MD Eosinophils (Bld) [#/Vol] 0.12 10*3/uL Normal 0.00-0.44 [facility] Comment on above: Performed By: #### B MP, CDP, MG, RIANNA ####[facility] [address] [place], [place] [address])[phone] Director: Carlos Rowland MD Eosinophils/100 WBC (Bld) 1 % Normal 1-4 [facility] Comment on above: Performed By: #### B MP, CDP, MG, RIANNA ####[facility] [address] [place], [place] [address])[phone] Director: Carlos Rowland MD Erythrocyte distribution width (RBC) [Ratio] 15.2 % High 11.8-14.4 [facility] Comment on above: Performed By: #### B MP, CDP, MG, RIANNA ####[facility] [address]qujj[address] [place], [place] [address])[phone] Director: Carlos Rowland MD Hematocrit (Bld) [Volume fraction] 33.6 % Low 40.7-50.3 [facility] Comment on above: Performed By: #### B MP, CDP, MG, RIANNA ####[facility] [address] [place], [place] [address])[phone] Director: Carlos Rowland MD Hemoglobin (Bld) [Mass/Vol] 10.6 g/dL Low 13.0-17.0 [facility] Comment on above: Performed By: #### B MP, CDP, MG, RIANNA ####[facility] Ywbttrbpvgih50[address] [place], [place] [phone] Director: Carlos Rowland MD Immature granulocytes/100 WBC (Bld) 1 % High 0 [facility] Comment on above: Performed By: #### B MP, CDP, MG, RIANNA ####[facility] [address]xzpjyqycc[address] [place], [place] [phone] Director: Carlos Rowland MD Lymphocytes (Bld) [#/Vol] 1.08 10*3/uL Low 1.10-3.70 [facility] Comment on above: Performed By: #### B MP, CDP, MG, RIANNA ####[facility] [address] [place] [address] [phone] Director: Carlos Rowland MD Lymphocytes/100 WBC (Bld) 9 % Low 24-43 [facility] Comment on above: Performed By: #### B MP, CDP, MG, RIANNA ####[facility] Vphhqzfxcgdc96[address] [place], [place] [phone] Director: Carlos Rowland MD MCH (RBC) [Entitic mass] 29.3 pg Normal 25.2-33.5 [facility] Comment on above: Performed By: #### B MP, CDP, MG, RIANNA ####[facility] Blbpqzryrdkn2636 [place], [place] [phone] Director: Carlos Rowland MD MCHC (RBC) [Mass/Vol] 31.5 g/dL Normal 28.4-34.8 [facility] Comment on above: Performed By: #### B MP, CDP, MG, RIANNA ####[facility] Estwktcfempl6[address] [place], [place] [phone] Director: Carlos Rowland MD MCV (RBC) [Entitic vol] 92.8 fL Normal 82.6-102.9 [facility] Comment on above: Performed By: #### B MP, CDP, MG, RIANNA ####[facility] [address] [place] [address] [phone] Director: Carlos Rowland MD Monocytes (Bld) [#/Vol] 0.85 10*3/uL Normal 0.10-1.20 [facility] Comment on above: Performed By: #### B MP, CDP, MG, RIANNA ####[facility] [address] [place] [address] [phone] Director: Carlos Rowland MD Monocytes/100 WBC (Bld) 7 % Normal 3-12 [facility] Comment on above: Performed By: #### B MP, CDP, MG, RIANNA ####[address] [address])[phone] Director: Carlos Rowland MD Neutrophil (Seg) 82 % High 36-65 [facility] Comment on above: Performed By: #### B MP, CDP, MG, RIANNA ####[address] [phone] Director: Carlos Rowland MD NRBC Automated 0.0 per [address] [facility] Comment on above: Performed By: #### B MP, CDP, MG, RIANNA ####[facility] [address] [place] [address] [phone] Director: Carlos Rowland MD Platelet mean volume (Bld) [Entitic vol] 9.8 fL Normal 8.1-13.5 [facility] Comment on above: Performed By: #### B MP, CDP, MG, RIANNA ####[facility] Bxx[address]wef[address] [place], [place] [phone] Director: Carlos Rowland MD Platelets (Bld) [#/Vol] 179 10*3/uL Normal 138-453 [facility] Comment on above: Performed By: #### B MP, CDP, MG, RIANNA ####[facility] [address]zsw[address] [place] [address] Lab Director: Carlos Rowland MD RBC (Bld) [#/Vol] 3.62 10*6/uL Low 4.21-5.77 [facility] Comment on above: Performed By: #### B MP, CDP, MG, RIANNA ####[facility] [address]xfymevtvzy[address] [place], [place] [phone] Director: Carlos Rowland MD RBC morphology finding Nom (Bld) ANISOCYTOSIS PRESENT Normal [facility] Comment on above: Performed By: #### B MP, CDP, MG, RIANNA ####[facility] [address] [place], [place] [phone] Director: Carlos Rowland MD WBC (Bld) [#/Vol] 12.4 10*3/uL High 3.5-11.3 [facility] Comment on above: Performed By: #### B MP, CDP, MG, RIANNA ####[facility] [address]lb[address] [place] [address] Lab Director: Carlos Rowland MD Cult,Urineon 07-14-2023 Cult,Urine Specimen Description .URINE Culture NO GROWTH Report Status FINAL 07/14/[address] [facility] Comment on above: Performed By: #### U RC ####[facility] Qpl[address]pfsoxmhu47[address] [place], [place] [phone] Director: Carlos Rowland MD Glucose,Whole Bloodon 2023 Glucose [Mass/Vol] 158 mg/dL High 75-110 [facility] Glucose [Mass/Vol] 226 mg/dL High 75-110 [facility] Glucose [Mass/Vol] 272 mg/dL High 75-110 [facility] Glucose [Mass/Vol] 143 mg/dL High 75-110 [facility] Magnesiumon 07-14-2023 Magnesium [Mass/Vol] 2.1 mg/dL Normal 1.6-2.6 [facility] Comment on above: Performed By: #### B MP, CDP, MG, RIANNA ####[facility] Nm[address]gstkp[address] [place], [place] [phone] lab Director: Carlos Rowland MD Phosphorus, Inorg.on 024 Phosphorus, Inorg. 3.2 mg/dL Normal 2.5-4.5 [facility] Comment on above: Performed By: #### B MP, CDP, MG, RIANNA ####[facility] [address]hy[address]zzmosr[address] [place], [place] [phone] Lab Director: Carlos Rowland MD XR CERVICAL [...] Shaq Melendez MD 07/14/[address] [facility] Basic Metabolic Profon 07-13 Anion gap [Moles/Vol] 10 mmol/L Normal 9-17 [facility] Comment on above: Performed By: #### U AX, UMICAO #### [facility] [address] [place], [place] [phone] Shipping Packer: Carlos Rowland MD Calcium [Mass/Vol] 8.5 mg/dL Low 8.6-10.4 [facility] Comment on above: Performed By: #### U AX, UMICAO #### [facility] [address] [place] [address] Shipping Packer: Carlos Rowland MD Chloride [Moles/Vol] 103 mmol/L Normal 98-107 [facility] Comment on above: Performed By: #### U AX, UMICAO #### [facility] [address] [place] [address] Shipping Packer: Carlos Rowland MD CO2 [Moles/Vol] 24 mmol/L Normal 20-31 [facility] Comment on above: Performed By: #### U AX, UMICAO #### [facility] [address] [place] [address] Shipping Packer: Carlos Rowland MD Creatinine [Mass/Vol] 1.0 mg/dL Normal 0.7-1.2 [facility] Comment on above: Performed By: #### U AX, UMICAO #### [facility] [address] [place] [address] Shipping Packer: Carlos Rowland MD GFR/1.73 sq M.predicted among non-blacks MDRD (S/P/Bld) [Vol rate/Area] mL/min/{1.73_m2} Normal >60 [facility] Comment on above: Result Comment: These results [...] Performed By: #### U AX, UMICAO #### [facility] [address] [place] [phone] Shipping Packer: Carlos Rowland MD Glucose [Mass/Vol] 195 mg/dL High 70-99 [facility] Comment on above: Performed By: #### U AXJUSTINAICAO #### [facility] [address] [place] [address] Shipping Packer: Carlos Rowland MD Potassium [Moles/Vol] 4.9 mmol/L Normal 3.7-5.3 [facility] Comment on above: Performed By: #### U LUZM ARIA MCQUEEN #### [facility] [address] [place] [address] Shipping Packer: Carlos Rowland MD Sodium [Moles/Vol] 137 mmol/L Normal 135-144 [facility] Comment on above: Performed By: #### U LUZ MARIA MCQUEEN #### [facility] [address] [place] [address] Shipping Packer: Carlos Rowland MD Urea nitrogen [Mass/Vol] 20 mg/dL Normal 8-23 [facility] Comment on above: Performed By: #### U LUZ MARIA MCQUEEN #### [facility] [address] [place] [address] Shipping Packer: Carlos Rowland MD CBC with Diffon 07-13-2023 Abs. Basophil 0.06 k/uL Normal 0.00-0.20 [facility] Comment on above: Performed By: #### LUZ MARIA MERCHANT #### [facility] [address] [place] [address] Shipping Packer: Carlos Rowland MD Abs.Imm.Granulocy te 0.07 k/uL Normal 0.00-0.30 [facility] Comment on above: Performed By: #### U LUZ MARIA MCQUEEN #### [facility] [address] [place] [address] Shipping Packer: Carlos Rowland MD Abs.Neutrophil (Seg) 9.84 k/uL High 1.50-8.10 [facility] Comment on above: Performed By: #### U AX, UMICAO #### [facility] [place] [address] Shipping Packer: Carlos Rowland MD Basophils/100 WBC (Bld) 1 % Normal 0-2 [facility] Comment on above: Performed By: #### U AX, UMICAO #### [facility] [address] [place] [address] Shipping Packer: Carlos Rowland MD Eosinophils (Bld) [#/Vol] 0.03 10*3/uL Normal 0.00-0.44 [facility] Comment on above: Performed By: #### U AX, UMICAO #### [facility] [address] [place] [address] Shipping Packer: Carlos Rowland MD Eosinophils/100 WBC (Bld) 0 % Low 1-4 [facility] Comment on above: Performed By: #### U AX, UMICAO #### [facility] [address] [place] [address] Shipping Packer: Carlos Rowland MD Erythrocyte distribution width (RBC) [Ratio] 15.3 % High 11.8-14.4 [facility] Comment on above: Performed By: #### U AX, UMICAO #### [facility] [address] [place] [address] Shipping Packer: Carlos Rowland MD Hematocrit (Bld) [Volume fraction] 35.5 % Low 40.7-50.3 [facility] Comment on above: Performed By: #### U AX, UMICAO #### [facility] [address] [place] [address] Shipping Packer: Carlos Rowland MD Hemoglobin (Bld) [Mass/Vol] 10.8 g/dL Low 13.0-17.0 [facility] Comment on above: Performed By: #### U AX, UMICAO #### [address] [phone] Shipping Packer: Carlos Rowland MD Immature granulocytes/100 WBC (Bld) 1 % High 0 [facility] Comment on above: Performed By: #### U AX, UMICAO #### [address] [address] Shipping Packer: Carlos Rowland MD Lymphocytes (Bld) [#/Vol] 1.15 10*3/uL Normal 1.10-3.70 [facility] Comment on above: Performed By: #### U AX, UMICAO #### [address] [address] Shipping Packer: Carlos Rowland MD Lymphocytes/100 WBC (Bld) 10 % Low 24-43 [facility] Comment on above: Performed By: #### U AX, UMICAO #### [address] [address] Shipping Packer: Carlos Rowland MD MCH (RBC) [Entitic mass] 29.1 pg Normal 25.2-33.5 [facility] Comment on above: Performed By: #### U AX, UMICAO #### [address] [address] Shipping Packer: Carlos Rowland MD MCHC (RBC) [Mass/Vol] 30.4 g/dL Normal 28.4-34.8 [facility] Comment on above: Performed By: #### U AX, UMICAO #### [address] [address] Shipping Packer: Carlos Rowland MD MCV (RBC) [Entitic vol] 95.7 fL Normal 82.6-102.9 [facility] Comment on above: Performed By: #### U AX, UMICAO #### [address] [address] Shipping Packer: Carlos Rowland MD Monocytes (Bld) [#/Vol] 0.73 10*3/uL Normal 0.10-1.20 [facility] Comment on above: Performed By: #### U AX, UMICAO #### [address] [address] Shipping Packer: Carlos Rowland MD Monocytes/100 WBC (Bld) 6 % Normal 3-12 [facility] Comment on above: Performed By: #### U AX, UMICAO #### [address] [address] Shipping Packer: Carlos Rowland MD Neutrophil (Seg) 82 % High 36-65 [facility] Comment on above: Performed By: #### U AX, UMICAO #### [address] [address] Shipping Packer: Carlos Rowland MD NRBC Automated 0.0 per [address] [facility] Comment on above: Performed By: #### U AX, UMICAO #### [address] [address] Shipping Packer: Carlos Rowland MD Platelet mean volume (Bld) [Entitic vol] 9.7 fL Normal 8.1-13.5 [facility] Comment on above: Performed By: #### U AX, UMICAO #### [address] [address] Shipping Packer: Carlos Rowland MD Platelets (Bld) [#/Vol] 183 10*3/uL Normal 138-453 [facility] Comment on above: Performed By: #### U AX, UMICAO #### [facility] [address] [place] [address] Shipping Packer: Carlos Rowland MD RBC (Bld) [#/Vol] 3.71 10*6/uL Low 4.21-5.77 [facility] Comment on above: Performed By: #### U JAMMIE MCQUEENO #### [facility] [address] [place] [address] Shipping Packer: Carlos Rowland MD RBC morphology finding Nom (Bld) ANISOCYTOSIS PRESENT Normal [facility] Comment on above: Performed By: #### U JAMMIE MCQUEENO #### [facility] [address] [place] [address] Shipping Packer: Carlos Rowland MD WBC (Bld) [#/Vol] 11.9 10*3/uL High 3.5-11.3 [facility] Comment on above: Performed By: #### U JAMMIE MCQUEENO #### [facility] [address] [place] [address] Shipping Packer: Carlos Rowland MD Glucose,Whole Bloodon 2023 Glucose [Mass/Vol] 213 mg/dL High 75-110 [facility] Glucose [Mass/Vol] 189 mg/dL High 75-110 [facility] Glucose [Mass/Vol] 260 mg/dL High 75-110 [facility] Glucose [Mass/Vol] 190 mg/dL High 75-110 [facility] Hemoglobin A1Con 07-13-2023 Glucose [Mass/Vol] 157 mg/dL Normal [facility] Comment on above: Result Comment: The ADA and AACC recommend providing the estimated average glucose result to permit better patient understanding of their HBA1c result. Performed By: #### P HO, CDP, BMP, GLYHGB, MG ####[facility] [address] [place] [address] Lab Director: Carlos Rowland MD HbA1c (Bld) [Mass fraction] 7.1 % High 4.0-6.0 [facility] Comment on above: Performed By: #### P HO, CDP, BMP, GLYHGB, MG ####[facility] [place] [address] Lab Director: Carlos Rowland MD MRI CERVICAL SPINE WO MELCHOR Gamble 07-13-2023 MRI CERVICAL SPINE WO CONTRAST EXAMINATION: [...] Shalini Garcia MD 07/13/[address] [facility] Magnesiumon 07-13-2023 Magnesium [Mass/Vol] 1.6 mg/dL Normal 1.6-2.6 [facility] Comment on above: Performed By: #### P HO, CDP, BMP, GLYHGB, MG ####[facility] [address] [place] [address] lab Director: Carlos Rowland MD PTon 07-13-2023 INR Coag (PPP) [Relative time] 1.5 {INR} Normal [facility] Comment on above: Result Comment: Therapeutic Range: Moderate Anticoagulant Intensity: INR = 2.0-3.0 High Anticoagulant Intensity: INR = 2.5-3.5 Performed By: #### P T ####[address] [address] lab Director: Carlos Rowland MD PT Coag (PPP) [Time] 17.7 s High 11.7-14.9 [facility] Comment on above: Performed By: #### P T ####[address] [address] Lab Director: Carlos Rowland MD Phosphorus, Inorg.on 024 Phosphorus, Inorg. 2.9 mg/dL Normal 2.5-4.5 [facility] Comment on above: Performed By: #### P HO, CDP, BMP, GLYHGB, MG ####[facility] [address] [place] [address] Lab Director: Carlos Rowland MD UA w/Reflex Cultureon 2023 Bilirubin, SemiQt,Ur Negative Normal NEG [facility] Comment on above: Performed By: #### LUZ MARIA MERCHANT #### [facility] [place] [address] Shipping Packer: Carlos Rowland MD Blood, Urine SMALL Abnormal NEG [facility] Comment on above: Performed By: #### U AX, UMICAO #### [facility] [address] [place] [address] Shipping Packer: Carlos Rowland MD Clarity (U) Clear Normal CLEAR [facility] Comment on above: Performed By: #### U AX, UMICAO #### [facility] [address] [place] [address] Shipping Packer: Carlos Rowland MD Color (U) Yellow Normal YEL [facility] Comment on above: Performed By: #### U AX, UMICAO #### [facility] [address] [place] [address] Shipping Packer: Carlos Rowland MD Glucose Ql (U) Negative Normal NEG [facility] Comment on above: Performed By: #### U AX, UMICAO #### [address] [phone] Shipping Packer: Carlos Rowland MD Ketones Ql (U) Negative Normal NEG [facility] Comment on above: Performed By: #### U AX, UMICAO #### [address] [address] Shipping Packer: Carlos Rowland MD Leukocyte esterase Test strip Ql (U) TRACE Abnormal NEG [facility] Comment on above: Performed By: #### U AX, UMICAO #### [facility] [address] [place] [address] Shipping Packer: Carlos Rowland MD Nitrite,Ur Negative Normal NEG [facility] Comment on above: Performed By: #### U AX, UMICAO #### [facility] [address] [place] [phone] Shipping Packer: Carlos Rowland MD PH,Ur 5.5 Normal 5.0-8.0 [facility] Comment on above: Performed By: #### U AX, UMICAO #### [address] [phone] Shipping Packer: Carlos Rowland MD Protein Ql (U) Negative Normal NEG [facility] Comment on above: Performed By: #### U AX, UMICAO #### [address] [address] Shipping Packer: Carlos Rowland MD Spec. [place],Ur 1.012 Normal 1.005-1.[address] [facility] Comment on above: Performed By: #### U AX, UMICAO #### [address] [phone] Shipping Packer: Carlos Rowland MD Urobilinogen,Ur Normal Normal 0.0-1.0 [facility] Comment on above: Performed By: #### U AX, UMICAO #### [address] [address] Shipping Packer: Carlos Rowland MD Urinalysis,Microon 4 Bacteria None Normal NONE [facility] Comment on above: Performed By: #### U AX, UMICAO #### [address] [phone] Shipping Packer: Carlos Rowland MD Casts 5 TO 10 HYALINE Normal 0-8 [facility] Comment on above: Result Comment: Refe rence range defined for non-centrifuged specimen. Performed By: #### U AX, UMICAO #### [address] [phone] Shipping Packer: Carlos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 103/ul Critically low 1.2-3.8 [facility] Comment on above: Performed By: #### P OCGLUC #### [facility] [address] [place] [address] Dr. Obdulia Ng Lymphocytes/100 WBC (Bld) 9.0 % Critically low 20.5-60.0 [facility] Comment on above: Performed By: #### P OCGLUC #### [facility] [address] [place] [address] Dr. Obdulia Ng MANUAL DIFF REQ NO Normal [facility] Comment on above: Performed By: #### P OCGLUC #### [facility] [address] [place] [address] Dr. Obdulia Ng MCH (RBC) [Entitic mass] 32.3 pg Normal 25.9-34.0 [facility] Comment on above: Performed By: #### P OCGLUC #### [facility] [address] [place] [address] Dr. Obdulia Ng MCHC (RBC) [Mass/Vol] 33.0 g/dL Normal 29.9-35.2 [facility] Comment on above: Performed By: #### P OCGLUC #### [facility] [address] [place] [address] Dr. Obdulia Ng MCV (RBC) [Entitic vol] 97.8 fL Critically high 80.0-94.0 [facility] Comment on above: Performed By: #### P OCGLUC #### [facility] [address] [place] [address] Dr. Obdulia Ng MONO # 0.8 103/ul Normal 0.3-0.8 [facility] Comment on above: Performed By: #### P OCGLUC #### [facility] [address] [place] [address] Dr. Obdulia Ng Monocytes/100 WBC (Bld) 10.6 % Normal 1.7-12.0 [facility] Comment on above: Performed By: #### P OCGLUC #### [facility] [address] [place] [address] Dr. Obdulia Ng NEUT # 6.3 103/ul Normal 1.4-6.5 [facility] Comment on above: Performed By: #### P OCGLUC #### [facility] [address] [place] [address] Dr. Obdulia Ng Neutrophils/100 WBC (Bld) 79.5 % Critically high 43.0-75.0 [facility] Comment on above: Performed By: #### P OCGLUC #### [facility] [address] [place], [place] [address] Dr. Obdulia Ng Platelet mean volume (Bld) [Entitic vol] 9.7 fL Normal 9.5-13.5 [facility] Comment on above: Performed By: #### P OCGLUC #### [facility] [address] [place] [address] [address] Obdulia Ng PLT 215 103/ul Normal 150-450 [facility] Comment on above: Performed By: #### P OCGLUC #### [facility] [address] [place], [place] [address] Dr. Obdulia Ng RBC 4.12 106/ul Critically low 4.70-6.10 [facility] Comment on above: Performed By: #### P OCGLUC #### [facility] [address] [place] [address] [address] Obdulia Ng WBC 7.9 103/ul Normal 4.0-11.0 [facility] Comment on above: Performed By: #### P OCGLUC #### [facility] [address] [place] [address] ABD/PELVIS WO CONon 09-07 CT ABD/PELVIS WO CON EXAMINATION: CT ABD/PELVIS WO CON HISTORY: Backache ; low back [...] BROOKS STEPHENSON Date: 2022-09-07 14:10 Normal [facility] PROF CHEM 8 (BAS METB)on Anion gap [Moles/Vol] 12.5 mmol/L Normal [facility] Comment on above: Performed By: #### P OCGLUC #### [facility] [address] [place] [address] [address] Obdulia Ng Calcium [Mass/Vol] 8.8 mg/dL Normal 8.5-10.1 [facility] Comment on above: Performed By: #### P OCGLUC #### [facility] [address] [place] [address] [address] Obdulia Ng Chloride [Moles/Vol] 103 mmol/L Normal 98-107 [facility] Comment on above: Performed By: #### P OCGLUC #### [facility] [address] [place] [address] [address] Obdulia Ng CO2 [Moles/Vol] 27.3 mmol/L Normal 21.0-32.0 [facility] Comment on above: Performed By: #### P OCGLUC #### [facility] [address] [place] [address] [address] Obdulia Ng Creatinine [Mass/Vol] 1.42 mg/dL Critically high 0.70-1.30 [facility] Comment on above: Performed By: #### P OCGLUC #### [facility] [address] [place] [address] [address] Obdulia Ng EGFR-AF PERUVIAN 58 mL/min/1.73m2 Critically low >=60 [facility] Comment on above: Performed By: #### P OCGLUC #### [facility] [address] [place] [address] [address] Obduila Ng EGFR-NON AF PERUVIAN 48 mL/min/1.73m2 Critically low >=60 [facility] Comment on above: Performed By: #### P OCGLUC #### [facility] [address] [place] [address] [address] Obdulia Ng Glucose [Mass/Vol] 173 mg/dL Critically high 74-106 [facility] Comment on above: Performed By: #### P OCGLUC #### [facility] [address] [place] [address] [address] Obdulia Ng Potassium [Moles/Vol] 4.8 mmol/L Normal 3.5-5.1 [facility] Comment on above: Performed By: #### P OCGLUC #### [facility] [address] [place] [address] [address] Obdulia Ng Sodium [Moles/Vol] 138 mmol/L Normal 136-145 [facility] Comment on above: Performed By: #### P OCGLUC #### [facility] [address] [place] [address] [address] Obdulia Ng Urea nitrogen [Mass/Vol] 25.0 mg/dL Critically high 7.0-18.0 [facility] Comment on above: Performed By: #### P OCGLUC #### [facility] [address] [place] [address] [address] Obdulia Ng Urea nitrogen/Creatini ne [Mass ratio] 17.6 mg/mg Normal [facility] Comment on above: Performed By: #### P OCGLUC #### [facility] [address] [place] [address] [address] Obdulia Ng PROTIMEon 09-07-2022 INR Coag (PPP) [Relative time] 1.87 {INR} Normal [facility] Comment on above: Performed By: #### P TT, PT #### [facility] [address] [place] [address] Dr. Obdulia Ng INR GUIDELINES SEE BELOW Normal [facility] Comment on above: Result Comment: BRAD RED INR: 2.0 - 3.0 CONDITIONS NOT LISTED BELOW 2.5 - 3.5 FOR PROSTHETIC HEART VALVE REPLACEMENT 2.5 - 3.5 RECURRENT THROMBOSIS Performed By: #### P TT, PT #### [facility] [address] [place] [address] Dr. Obdulia Ng PT Coag (PPP) [Time] 19.1 s Critically high 9.0-11.6 [facility] Comment on above: Performed By: #### P TT, PT #### [facility] [address] [place] [address] Dr. Obdulia Ng PTTon 09-07-2022 aPTT Coag (Bld) [Time] 29.9 s Normal 22.3-36.2 [facility] Comment on above: Performed By: #### P TT, PT #### [facility] [address] [place] [address] Dr. Obdulia Ng 36on 07-13-2022 36 Called [...] would not be calling him again. Normal [facility] BNPon 04-21-2022 Natriuretic peptide B (Bld) [Mass/Vol] 6682.0 pg/mL Critically high <=1,800.0 [facility] Comment on above: Performed By: #### P OCGLUC #### [facility] [address] [place] [address] [address] Obdulia Ng CBC AUTO DIFFon 04-21-2022 BASO # 0.1 103/ul Normal 0.0-0.1 [facility] Comment on above: Performed By: #### P OCGLUC #### [facility] [address] [place] [address] [address] Obdulia Ng Basophils/100 WBC (Bld) 1.3 % Normal 0.2-2.0 [facility] Comment on above: Performed By: #### P OCGLUC #### [facility] [address] [place] [address] [address] Obdulia Ng EO # 0.1 103/ul Normal 0.0-0.7 [facility] Comment on above: Performed By: #### P OCGLUC #### [facility] [address] [place] [address] [address] Obdulia Ng Eosinophils/100 WBC (Bld) 1.1 % Normal 0.9-7.0 [facility] Comment on above: Performed By: #### P OCGLUC #### [facility] [address] [place] [address] [address] Obdulia Ng Erythrocyte distribution width (RBC) [Ratio] 15.7 % Critically high 11.0-15.0 [facility] Comment on above: Performed By: #### P OCGLUC #### [facility] [address] [place] [address] [address] Obdulia Ng Hematocrit (Bld) [Volume fraction] 39.8 % Critically low 42.0-54.0 [facility] Comment on above: Performed By: #### P OCGLUC #### [facility] [address] [place] [address] [address] Obdulia Ng Hemoglobin (Bld) [Mass/Vol] 13.3 g/dL Critically low 14.0-18.0 [facility] Comment on above: Performed By: #### P OCGLUC #### [facility] [address] [place] [address] [address] Obdulia Ng IG # 0.02 10e3/ul Normal 0.00-0.03 [facility] Comment on above: Performed By: #### P OCGLUC #### [facility] [address] [place] [address] [address] Obdulia Ng IG % 0.2 % Normal 0.0-0.5 [facility] Comment on above: Performed By: #### P OCGLUC #### [facility] [address] [place] [address] [address] Obdulia Ng LYMPH # 1.5 103/ul Normal 1.2-3.8 [facility] Comment on above: Performed By: #### P OCGLUC #### [facility] [address] [place] [address] [address] Obdulia Ng Lymphocytes/100 WBC (Bld) 18.0 % Critically low 20.5-60.0 [facility] Comment on above: Performed By: #### P OCGLUC #### [facility] [address] [place] [address] Dr. Obdulia Ng MANUAL DIFF REQ NO Normal [facility] Comment on above: Performed By: #### P OCGLUC #### [facility] [address] [place] [address] [address] Obdulia Ng MCH (RBC) [Entitic mass] 31.1 pg Normal 25.9-34.0 [facility] Comment on above: Performed By: #### P OCGLUC #### [facility] [address] [place] [address] [address] Obdulia Ng MCHC (RBC) [Mass/Vol] 33.4 g/dL Normal 29.9-35.2 [facility] Comment on above: Performed By: #### P OCGLUC #### [facility] [address] [place] [address] [address] Obdulia Ng MCV (RBC) [Entitic vol] 93.0 fL Normal 80.0-94.0 [facility] Comment on above: Performed By: #### P OCGLUC #### [facility] [address] [place] [address] [address] Obdulia Ng MONO # 1.0 103/ul Critically high 0.3-0.8 [facility] Comment on above: Performed By: #### P OCGLUC #### [facility] [address] [place] [address] [address] Obdulia Ng Monocytes/100 WBC (Bld) 12.1 % Critically high 1.7-12.0 [facility] Comment on above: Performed By: #### P OCGLUC #### [facility] [address] [place] [address] [address] Obdulia Ng NEUT # 5.5 103/ul Normal 1.4-6.5 [facility] Comment on above: Performed By: #### P OCGLUC #### [facility] [address] [place] [address] [address] Obdulia Ng Neutrophils/100 WBC (Bld) 67.3 % Normal 43.0-75.0 [facility] Comment on above: Performed By: #### P OCGLUC #### [facility] [address] [place] [address] [address] Obdulia Ng Platelet mean volume (Bld) [Entitic vol] 9.7 fL Normal 9.5-13.5 [facility] Comment on above: Performed By: #### P OCGLUC #### [facility] [address] [place] [address] [address] Obdulia Ng PLT 265 103/ul Normal 150-450 [facility] Comment on above: Performed By: #### P OCGLUC #### [facility] [address] [place] [address] [address] Obdulia Ng RBC 4.28 106/ul Critically low 4.70-6.10 [facility] Comment on above: Performed By: #### P OCGLUC #### [facility] [address] [place] [address] [address] Obdulia Ng WBC 8.2 103/ul Normal 4.0-11.0 [facility] Comment on above: Performed By: #### P OCGLUC #### [facility] [address] [place] [address] [address] Obdulia Ng PROF CHEM 8 (BAS METB)on Anion gap [Moles/Vol] 11.7 mmol/L Normal [facility] Comment on above: Performed By: #### P TT, PT #### [facility] [address] [place] [address] [address] Obdulia Ng Calcium [Mass/Vol] 8.3 mg/dL Critically low 8.5-10.1 [facility] Comment on above: Performed By: #### P TT, PT #### [facility] [address] [place] [address] Dr. Obdulia Ng Chloride [Moles/Vol] 100 mmol/L Normal 98-107 [facility] Comment on above: Performed By: #### P TT, PT #### [facility] [address] [place] [address] Dr. Obdulia Ng CO2 [Moles/Vol] 32.5 mmol/L Critically high 21.0-32.0 [facility] Comment on above: Performed By: #### P TT, PT #### [facility] [address] [place] [address] Dr. Obdulia Ng Creatinine [Mass/Vol] 1.42 mg/dL Critically high 0.70-1.30 [facility] Comment on above: Performed By: #### P TT, PT #### [facility] [address] [place] [address] Dr. Obdulia Ng EGFR-AF PERUVIAN 58 mL/min/1.73m2 Critically low >=60 [facility] Comment on above: Performed By: #### P TT, PT #### [facility] [address] [place] [address] Dr. Obdulia Ng EGFR-NON AF PERUVIAN 48 mL/min/1.73m2 Critically low >=60 [facility] Comment on above: Performed By: #### P TT, PT #### [facility] [address] [place] [address] Dr. Obdulia Ng Glucose [Mass/Vol] 118 mg/dL Critically high 74-106 [facility] Comment on above: Performed By: #### P TT, PT #### [facility] [address] [place] [address] Dr. Obdulia Ng Potassium [Moles/Vol] 3.2 mmol/L Critically low 3.5-5.1 [facility] Comment on above: Performed By: #### P TT, PT #### [facility] [address] [place] [address] Dr. Obdulia Ng Sodium [Moles/Vol] 141 mmol/L Normal 136-145 [facility] Comment on above: Performed By: #### P TT, PT #### [facility] [address] [place] [address] Dr. Obdulia Ng Urea nitrogen [Mass/Vol] 30.0 mg/dL Critically high 7.0-18.0 [facility] Comment on above: Performed By: #### P TT, PT #### [facility] [address] [place] [address] Dr. Obdulia Ng Urea nitrogen/Creatini ne [Mass ratio] 21.1 mg/mg Normal [facility] Comment on above: Performed By: #### P TT, PT #### [facility] [address] [place] [address] Dr. Obdulia Ng PROTIMEon 04-21-2022 INR Coag (PPP) [Relative time] 2.09 {INR} Normal [facility] Comment on above: Performed By: #### C VDTBH #### [facility] [address] [place] [address] Dr. Obdulia Ng INR GUIDELINES SEE BELOW Normal [facility] Comment on above: Result Comment: BRAD RED INR: 2.0 - 3.0 CONDITIONS NOT LISTED BELOW 2.5 - 3.5 FOR PROSTHETIC HEART VALVE REPLACEMENT 2.5 - 3.5 RECURRENT THROMBOSIS Performed By: #### C VDTBH #### [facility] [address] [place] [address] Dr. Obdulia Ng PT Coag (PPP) [Time] 21.5 s Critically high 9.0-11.6 [facility] Comment on above: Performed By: #### C VDTBH #### [facility] [address] [place] [address] Dr. Obdulia Ng BNPon 04-20-2022 Natriuretic peptide B (Bld) [Mass/Vol] 16567.0 pg/mL Critically high <=1,800.0 [facility] Comment on above: Performed By: #### C VDTBH #### [facility] [address] [place] [address] Dr. Obdulia Ng CBC AUTO DIFFon 04-20-2022 BASO # 0.1 103/ul Normal 0.0-0.1 [facility] Comment on above: Performed By: #### C VDTBH #### [facility] [address] [place] [address] Dr. Obdulia Ng Basophils/100 WBC (Bld) 1.1 % Normal 0.2-2.0 [facility] Comment on above: Performed By: #### C VDTBH #### [facility] [address] [place] [address] Dr. Obdulia Ng EO # 0.1 103/ul Normal 0.0-0.7 [facility] Comment on above: Performed By: #### C VDTBH #### [facility] [address] [place] [address] Dr. Obdulia Ng Eosinophils/100 WBC (Bld) 1.1 % Normal 0.9-7.0 [facility] Comment on above: Performed By: #### C VDTBH #### [facility] [address] [place] [address] Dr. Obdulia Ng Erythrocyte distribution width (RBC) [Ratio] 15.7 % Critically high 11.0-15.0 [facility] Comment on above: Performed By: #### C VDTBH #### [facility] [address] [place] [address] Dr. Obdulia Ng Hematocrit (Bld) [Volume fraction] 37.6 % Critically low 42.0-54.0 [facility] Comment on above: Performed By: #### C VDTBH #### [facility] [address] [place] [address] Dr. Obdulia Ng Hemoglobin (Bld) [Mass/Vol] 12.2 g/dL Critically low 14.0-18.0 [facility] Comment on above: Performed By: #### C VDTBH #### [facility] [address] [place] [address] Dr. Obdulia Ng IG # 0.03 10e3/ul Normal 0.00-0.03 [facility] Comment on above: Performed By: #### C VDTBH #### [facility] [address] [place] [address] Dr. Obdulia Ng IG % 0.4 % Normal 0.0-0.5 [facility] Comment on above: Performed By: #### C VDTBH #### [facility] [address] [place] [address] Dr. Obdulia Ng LYMPH # 1.7 103/ul Normal 1.2-3.8 [facility] Comment on above: Performed By: #### C VDTBH #### [facility] [address] [place] [address] Dr. Obdulia Ng Lymphocytes/100 WBC (Bld) 22.2 % Normal 20.5-60.0 [facility] Comment on above: Performed By: #### C VDTBH #### [facility] [address] [place] [address] Dr. Obdulia Ng MANUAL DIFF REQ NO Normal [facility] Comment on above: Performed By: #### C VDTBH #### [facility] [address] [place] [address] Dr. Obdulia Ng MCH (RBC) [Entitic mass] 31.0 pg Normal 25.9-34.0 [facility] Comment on above: Performed By: #### C VDTBH #### [facility] [address] [place] [address] Dr. Obdulia Ng MCHC (RBC) [Mass/Vol] 32.4 g/dL Normal 29.9-35.2 [facility] Comment on above: Performed By: #### C VDTBH #### [facility] [address] [place] [address] Dr. Obdulia Ng MCV (RBC) [Entitic vol] 95.4 fL Critically high 80.0-94.0 [facility] Comment on above: Performed By: #### C VDTBH #### [facility] [address] [address] [address] Obdulia Ng MONO # 0.6 103/ul Normal 0.3-0.8 [facility] Comment on above: Performed By: #### C VDTBH #### [facility] [address] [address] [address] Obdulia Ng Monocytes/100 WBC (Bld) 8.4 % Normal 1.7-12.0 [facility] Comment on above: Performed By: #### C VDTBH #### [facility] [address] [address] [address] Obdulia Ng NEUT # 5.1 103/ul Normal 1.4-6.5 [facility] Comment on above: Performed By: #### C VDTBH #### [facility] [address] [place] [address] Dr. Obdulia Ng Neutrophils/100 WBC (Bld) 66.8 % Normal 43.0-75.0 [facility] Comment on above: Performed By: #### C VDTBH #### [facility] [address] [place] [address] Dr. Obdulia Ng Platelet mean volume (Bld) [Entitic vol] 9.8 fL Normal 9.5-13.5 [facility] Comment on above: Performed By: #### C VDTBH #### [facility] [address] [place] [address] Dr. Obdulia Ng PLT 268 103/ul Normal 150-450 [facility] Comment on above: Performed By: #### C VDTBH #### [facility] [address] [place] [address] Dr. Obdulia Ng RBC 3.94 106/ul Critically low 4.70-6.10 [facility] Comment on above: Performed By: #### C VDTBH #### [facility] [address] [place] [address] Dr. Obdulia Ng WBC 7.6 103/ul Normal 4.0-11.0 [facility] Comment on above: Performed By: #### C VDTB #### [facility] [address] [address] [address] Obdulia Ng ECHO LIMITED STUDYon 04-20-2 022 ECHO LIMITED STUDY Patient: ELVIRA BERGMAN Exam Date: 04/20/2022 : 1940 Gender:M Ordering : DR BRIDGET FARLEY . Admission #: [id number] Family : Order #: [id number] CLICK HERE TO VIEW EXAM ECHOCARDIOGRAM REPORT [...] Morales M.D. on 04/21/2022 at 14:27 Normal [facility] POINT OF CARE GLUCOSEon 03-24 Glucose [Mass/Vol] 146 mg/dL Critically high 74-106 [facility] Comment on above: Performed By: #### T SH, T4 #### [facility] [address] [address] [address] Obdulia Ng Glucose [Mass/Vol] 177 mg/dL Critically high -106 [facility] Comment on above: Performed By: #### P OCGLUC #### [facility] [address] [address] [address] Obdulia Ng Glucose [Mass/Vol] 164 mg/dL Critically high 74-106 [facility] Comment on above: Performed By: #### P OCGLUC #### [facility] [address] [address] [address] Obdulia Ng PROF CHEM 8 (BAS METB)on Anion gap [Moles/Vol] 11.2 mmol/L Normal [facility] Comment on above: Performed By: #### C VDTBH #### [facility] [address] [address] [address] Obdulia Ng Calcium [Mass/Vol] 8.5 mg/dL Normal 8.5-10.1 [facility] Comment on above: Performed By: #### C VDTBH #### [facility] [address] [address] [address] Obdulia Ng Chloride [Moles/Vol] 104 mmol/L Normal 98-107 [facility] Comment on above: Performed By: #### C VDTBH #### [facility] [address] [address] [address] Obdulia Ng CO2 [Moles/Vol] 28.6 mmol/L Normal 21.0-32.0 [facility] Comment on above: Performed By: #### C VDTBH #### [facility] [address] [address] [address] Obdulia Ng Creatinine [Mass/Vol] 1.32 mg/dL Critically high 0.70-1.30 [facility] Comment on above: Performed By: #### C VDTBH #### [facility] [address] [address] [address] Obdulia Ng EGFR-AF PERUVIAN >60 Normal >=60 [facility] Comment on above: Performed By: #### C VDTBH #### [facility] [address] [address] [address] Obdulia Ng EGFR-NON AF PERUVIAN 52 mL/min/1.73m2 Critically low >=60 [facility] Comment on above: Performed By: #### C VDTBH #### [facility] [address] [address] [address] Obdulia Ng Glucose [Mass/Vol] 92 mg/dL Normal 74-106 [facility] Comment on above: Performed By: #### C VDTBH #### [facility] [address] [address] [address] Obdulia Ng Potassium [Moles/Vol] 3.8 mmol/L Normal 3.5-5.1 [facility] Comment on above: Performed By: #### C VDTBH #### [facility] [address] [address] [address] Obdulia Ng Sodium [Moles/Vol] 140 mmol/L Normal 136-145 [facility] Comment on above: Performed By: #### C VDTBH #### [facility] [address] [address] [address] Obdulia Ng Urea nitrogen [Mass/Vol] 24.0 mg/dL Critically high 7.0-18.0 [facility] Comment on above: Performed By: #### C VDTBH #### [facility] [address] [address] [address] Obdulia Ng Urea nitrogen/Creatini ne [Mass ratio] 18.2 mg/mg Normal [facility] Comment on above: Performed By: #### C VDTBH #### [facility] [address] [place] [address] Dr. Obdulia Ng PROTIMEon 04-20-2022 INR Coag (PPP) [Relative time] 2.11 {INR} Normal [facility] Comment on above: Performed By: #### C VDTBH #### [facility] [address] [place] [address] Dr. Obdulia Ng INR GUIDELINES SEE BELOW Normal [facility] Comment on above: Result Comment: BRAD RED INR: 2.0 - 3.0 CONDITIONS NOT LISTED BELOW 2.5 - 3.5 FOR PROSTHETIC HEART VALVE REPLACEMENT 2.5 - 3.5 RECURRENT THROMBOSIS Performed By: #### C VDTBH #### [facility] [address] [place] [address] Dr. Obdulia Ng PT Coag (PPP) [Time] 21.7 s Critically high 9.0-11.6 [facility] Comment on above: Performed By: #### C VDTBH #### [facility] [address] [place] [address] Dr. Obdulia Ng BNPon 04-19-2022 Natriuretic peptide B (Bld) [Mass/Vol] 65289.0 pg/mL Critically high <=1,800.0 [facility] Comment on above: Performed By: #### P OCGLUC #### [facility] [address] [place] [address] Dr. Obdulia Ng CBC AUTO DIFFon 04-19-2022 BASO # 0.1 103/ul Normal 0.0-0.1 [facility] Comment on above: Performed By: #### C VDTBH #### [facility] [address] [place] [address] Dr. Obdulia Ng Basophils/100 WBC (Bld) 0.8 % Normal 0.2-2.0 [facility] Comment on above: Performed By: #### C VDTBH #### [facility] [address] [place] [address] Dr. Obdulia Ng EO # 0.0 103/ul Normal 0.0-0.7 [facility] Comment on above: Performed By: #### C VDTBH #### [facility] [address] [place] [address] Dr. Obdulia Ng Eosinophils/100 WBC (Bld) 0.4 % Critically low 0.9-7.0 [facility] Comment on above: Performed By: #### C VDTBH #### [facility] [address] [place] [address] Dr. Obdulia Ng Erythrocyte distribution width (RBC) [Ratio] 15.7 % Critically high 11.0-15.0 [facility] Comment on above: Performed By: #### C VDTBH #### [facility] [address] [place] [address] Dr. Obdulia Ng Hematocrit (Bld) [Volume fraction] 38.3 % Critically low 42.0-54.0 [facility] Comment on above: Performed By: #### C VDTBH #### [facility] [address] [place] [address] Dr. Obdulia Ng Hemoglobin (Bld) [Mass/Vol] 12.7 g/dL Critically low 14.0-18.0 [facility] Comment on above: Performed By: #### C VDTBH #### [facility] [address] [place] [address] Dr. Obdulia Ng IG # 0.02 10e3/ul Normal 0.00-0.03 [facility] Comment on above: Performed By: #### C VDTBH #### [facility] [address] [place] [address] Dr. Obdulia Ng IG % 0.2 % Normal 0.0-0.5 [facility] Comment on above: Performed By: #### C VDTBH #### [facility] [address] [place] [address] Dr. Obdulia Ng LYMPH # 1.3 103/ul Normal 1.2-3.8 [facility] Comment on above: Performed By: #### C VDTBH #### [facility] [address] [place] [address] Dr. Obdulia Ng Lymphocytes/100 WBC (Bld) 13.4 % Critically low 20.5-60.0 [facility] Comment on above: Performed By: #### C VDTBH #### [facility] [address] [place] [address] Dr. Obdulia Ng MANUAL DIFF REQ NO Normal [facility] Comment on above: Performed By: #### C VDTBH #### [facility] [address] [place] [address] Dr. Obdulia Ng MCH (RBC) [Entitic mass] 31.3 pg Normal 25.9-34.0 [facility] Comment on above: Performed By: #### C VDTBH #### [facility] [address] [place] [address] Dr. Obdulia Ng MCHC (RBC) [Mass/Vol] 33.2 g/dL Normal 29.9-35.2 [facility] Comment on above: Performed By: #### C VDTBH #### [facility] [address] [place] [address] Dr. Obdulia Ng MCV (RBC) [Entitic vol] 94.3 fL Critically high 80.0-94.0 [facility] Comment on above: Performed By: #### C VDTBH #### [facility] [address] [place] [address] Dr. Obdulia Ng MONO # 0.8 103/ul Normal 0.3-0.8 [facility] Comment on above: Performed By: #### C VDTBH #### [facility] [address] [place] [address] Dr. Obdulia Ng Monocytes/100 WBC (Bld) 7.7 % Normal 1.7-12.0 [facility] Comment on above: Performed By: #### C VDTBH #### [facility] [address] [place] [address] Dr. Obdulia Ng NEUT # 7.7 103/ul Critically high 1.4-6.5 [facility] Comment on above: Performed By: #### C VDTBH #### [facility] [address] [address] [address] Obdulia Ng Neutrophils/100 WBC (Bld) 77.5 % Critically high 43.0-75.0 [facility] Comment on above: Performed By: #### C VDTBH #### [facility] [address] [place] [address] Dr. Obdulia Ng Platelet mean volume (Bld) [Entitic vol] 9.7 fL Normal 9.5-13.5 [facility] Comment on above: Performed By: #### C VDTBH #### [facility] [address] [address] [address] Obdulia Ng PLT 277 103/ul Normal 150-450 [facility] Comment on above: Performed By: #### C VDTBH #### [facility] [address] [place] [address] Dr. Obdulia Ng RBC 4.06 106/ul Critically low 4.70-6.10 [facility] Comment on above: Performed By: #### C VDTBH #### [facility] [address] [place] [address] Dr. Obdulia Ng WBC 10.0 103/ul Normal 4.0-11.0 [facility] Comment on above: Performed By: #### C VDTBH #### [facility] [address] [place] [address] Dr. Obdulia Ng Covid-19 PCR ([facility])on 03-24 SARS-CoV-2 (COVID-19) RNA SHELBY+probe Ql (Unsp spec) Not detected Normal NOT DETECTED [facility] Comment on above: Result Comment: When diagnostic [...] for this test is supported by the [employer] of [employer] and Human Service's declaration that [...] used). Performed By: #### C VDTBH #### [facility] [address] [place] [address] Dr. Obdulia Ng POINT OF CARE GLUCOSEon 03-24 Glucose [Mass/Vol] 206 mg/dL Critically high 74-106 [facility] Comment on above: Performed By: #### P OCGLUC #### [facility] [address] [place] [address] Dr. Obdulia Ng PROF 14(COMP METB)on 022 Albumin [Mass/Vol] 3.3 g/dL Critically low 3.4-5.0 [facility] Comment on above: Performed By: #### P OCGLUC #### [facility] [address] [place] [address] Dr. Obdulia Ng Albumin/Globulin [Mass ratio] 1.1 {ratio} Normal [facility] Comment on above: Performed By: #### P OCGLUC #### [facility] [address] [place] [address] Dr. Obdulia Ng ALP [Catalytic activity/Vol] 82 U/L Normal 46-116 [facility] Comment on above: Performed By: #### P OCGLUC #### [facility] [address] [place] [address] Dr. Obdulia Ng ALT [Catalytic activity/Vol] 42 U/L Normal 16-63 [facility] Comment on above: Performed By: #### P OCGLUC #### [facility] [address] [place] [address] Dr. Obdulia Ng Anion gap [Moles/Vol] 14.7 mmol/L Normal [facility] Comment on above: Performed By: #### P OCGLUC #### [facility] [address] [place] [address] Dr. Obdulia Ng AST [Catalytic activity/Vol] 19 U/L Normal 15-37 [facility] Comment on above: Performed By: #### P OCGLUC #### [facility] [address] [address] [address] Obdulia Ng Bilirubin [Mass/Vol] 1.4 mg/dL Critically high 0.2-1.0 [facility] Comment on above: Performed By: #### P OCGLUC #### [facility] [address] [address] [address] Obdulia Ng Calcium [Mass/Vol] 8.7 mg/dL Normal 8.5-10.1 [facility] Comment on above: Performed By: #### P OCGLUC #### [facility] [address] [address] [address] Obdulia Ng Chloride [Moles/Vol] 105 mmol/L Normal 98-107 [facility] Comment on above: Performed By: #### P OCGLUC #### [facility] [address] [address] [address] Obdulia Ng CO2 [Moles/Vol] 22.3 mmol/L Normal 21.0-32.0 [facility] Comment on above: Performed By: #### P OCGLUC #### [facility] [address] [address] [address] Obdulia Ng Creatinine [Mass/Vol] 1.20 mg/dL Normal 0.70-1.30 [facility] Comment on above: Performed By: #### P OCGLUC #### [facility] [address] [address] [address] Obdulia Ng EGFR-AF PERUVIAN >60 Normal >=60 [facility] Comment on above: Performed By: #### P OCGLUC #### [facility] [address] [address] [address] Obdulia Ng EGFR-NON AF PERUVIAN 58 mL/min/1.73m2 Critically low >=60 [facility] Comment on above: Performed By: #### P OCGLUC #### [facility] [address] [address] [address] Obdulia Ng Globulin (S) [Mass/Vol] 3.1 g/dL Normal [facility] Comment on above: Performed By: #### P OCGLUC #### [facility] [address] [address] [address] Obdulia Ng Glucose [Mass/Vol] 124 mg/dL Critically high 74-106 [facility] Comment on above: Performed By: #### P OCGLUC #### [facility] [address] [address] [address] Obdulia Ng Potassium [Moles/Vol] 4.0 mmol/L Normal 3.5-5.1 [facility] Comment on above: Performed By: #### P OCGLUC #### [facility] [address] [address] [address] Obdulia Ng Protein [Mass/Vol] 6.4 g/dL Normal 6.4-8.2 [facility] Comment on above: Performed By: #### P OCGLUC #### [facility] [address] [address] [address] Obdulia Ng Sodium [Moles/Vol] 138 mmol/L Normal 136-145 [facility] Comment on above: Performed By: #### P OCGLUC #### [facility] [address] [address] [address] Obdulia Ng Urea nitrogen [Mass/Vol] 23.0 mg/dL Critically high 7.0-18.0 [facility] Comment on above: Performed By: #### P OCGLUC #### [facility] [address] [address] [address] Obdulia Ng Urea nitrogen/Creatini ne [Mass ratio] 19.2 mg/mg Normal [facility] Comment on above: Performed By: #### P OCGLUC #### [facility] [address] [address] [address] Obdulia Ng PROTIMEon 04-19-2022 INR Coag (PPP) [Relative time] 1.88 {INR} Normal [facility] Comment on above: Performed By: #### P TT, PT #### [facility] [address] [address] [address] Obdulia Ng INR GUIDELINES SEE BELOW Normal [facility] Comment on above: Result Comment: BRAD RED INR: 2.0 - 3.0 CONDITIONS NOT LISTED BELOW 2.5 - 3.5 FOR PROSTHETIC HEART VALVE REPLACEMENT 2.5 - 3.5 RECURRENT THROMBOSIS Performed By: #### P TT, PT #### [facility] [address] [address] [address] Obdulia Ng PT Coag (PPP) [Time] 19.5 s Critically high 9.0-11.6 [facility] Comment on above: Performed By: #### P TT, PT #### [facility] [address] [address] [address] Obdulia Ng PTTon 04-19-2022 aPTT Coag (Bld) [Time] 29.1 s Normal 22.3-36.2 [facility] Comment on above: Performed By: #### P TT, PT #### [facility] [address] [address] [address] Obdulia Ng TROPONIN, HIGH SENSITIVITYon 04-19-2022 HSTROP 20.6 pg/mL Normal 4.0-76.1 [facility] Comment on above: Result Comment: CUT- OFF POINTS HAVE BEEN ESTABLISHED BASED ON THE FOURTH UNIVERSAL DEFINITIONS OF MYOCARDIAL INFARCTION. THE UPPER REFERENCE LIMIT (URL) OF TROPONIN, DEFINED THE 99TH PERCENTILE OF cTnI DISTRIBUTION IN A REFERENCE POPULATION, HAS BEEN CONFIRMED THE DECISION THRESHOLD FOR IN DIAGNOSIS. Performed By: #### P OCGLUC #### [facility] [address] [address] [address] Obdulia Ng XR CHEST 1 Von [...] by: BROOKS STEPHENSON Date: 2022-04-19 16:11 Normal [facility] PROTIMEon 04-03-2022 INR Coag (PPP) [Relative time] 4.04 {INR} Normal [facility] Comment on above: Performed By: #### P OCGLUC #### [facility] [address] [address] [address] Obdulia Ng INR GUIDELINES SEE BELOW Normal [facility] Comment on above: Result Comment: BRAD RED INR: 2.0 - 3.0 CONDITIONS NOT LISTED BELOW 2.5 - 3.5 FOR PROSTHETIC HEART VALVE REPLACEMENT 2.5 - 3.5 RECURRENT THROMBOSIS Performed By: #### P OCGLUC #### [facility] [address] [address] [address] Obdulia Ng PT Coag (PPP) [Time] 39.8 s Critically high 9.0-11.6 [facility] Comment on above: Performed By: #### P OCGLUC #### [facility] [address] [place] [address] Dr. Obdulia Ng Follow-Upon 03-12-2022 Follow-Up [id number] Joby Bergman 1940 M Date Provider Department Center 03/12/2022 GIL PARSON Family History Problem Relation Age of Onset Heart attack Father Family Status - Relation Status Age at Father Level of Service:57695 HI OFFICE/OUTPATIENT ESTABLISHED MOD MDM 30-39 MIN Normal [facility] Office Visiton 02-19-2022 Follow-up visit [id number] Joby Bergman 1940 M Date Provider Department Center 02/19/2022 GIL PARSON Family History Problem Relation Age of Onset Heart attack Father Family Status - Relation Status Age at Father Level of Service:00635 HI OFFICE/OUTPATIENT NEW HIGH MDM 60-74 MINUTES Reason for Visit and Comments: Atrial Fibrillation [80] Congestive Heart Failure [127] Palpitations [862016] Normal [facility] BNPon 02-18-2022 Natriuretic peptide B (Bld) [Mass/Vol] 4200.0 pg/mL Critically high <=1,800.0 [facility] Comment on above: Performed By: #### P TT, PT #### [facility] [address] [place] [address] Dr. Obdulia Ng CBC AUTO DIFFon 02-18-2022 BASO # 0.0 103/ul Normal 0.0-0.1 [facility] Comment on above: Performed By: #### C VDTBH #### [facility] [address] [place] [address] Dr. Obdulia Ng Basophils/100 WBC (Bld) 0.3 % Normal 0.2-2.0 [facility] Comment on above: Performed By: #### C VDTBH #### [facility] [address] [place] [address] Dr. Obdulia Ng EO # 0.0 103/ul Normal 0.0-0.7 [facility] Comment on above: Performed By: #### C VDTBH #### [facility] [address] [place] [address] Dr. Obdulia Ng Eosinophils/100 WBC (Bld) 0.1 % Critically low 0.9-7.0 [facility] Comment on above: Performed By: #### C VDTBH #### [facility] [address] [place] [address] Dr. Obdulia Ng Erythrocyte distribution width (RBC) [Ratio] 14.6 % Normal 11.0-15.0 [facility] Comment on above: Performed By: #### C VDTBH #### [facility] [address] [place] [address] Dr. Obdulia Ng Hematocrit (Bld) [Volume fraction] 37.7 % Critically low 42.0-54.0 [facility] Comment on above: Performed By: #### C VDTBH #### [facility] [address] [place] [address] Dr. Obdulia Ng Hemoglobin (Bld) [Mass/Vol] 12.3 g/dL Critically low 14.0-18.0 [facility] Comment on above: Performed By: #### C VDTBH #### [facility] [address] [address] [address] Obdulia Ng IG # 0.04 10e3/ul Critically high 0.00-0.03 [facility] Comment on above: Performed By: #### C VDTBH #### [facility] [address] [address] [address] Obdulia Ng IG % 0.4 % Normal 0.0-0.5 [facility] Comment on above: Performed By: #### C VDTBH #### [facility] [address] [address] [address] Obdulia Ng LYMPH # 1.1 103/ul Critically low 1.2-3.8 [facility] Comment on above: Performed By: #### C VDTBH #### [facility] [address] [place] [address] Dr. Obdulia Ng Lymphocytes/100 WBC (Bld) 11.0 % Critically low 20.5-60.0 [facility] Comment on above: Performed By: #### C VDTBH #### [facility] [address] [address] [address] Obdulia Ng MANUAL DIFF REQ NO Normal [facility] Comment on above: Performed By: #### C VDTBH #### [facility] [address] [place] [address] Dr. Obdulia Ng MCH (RBC) [Entitic mass] 31.1 pg Normal 25.9-34.0 [facility] Comment on above: Performed By: #### C VDTBH #### [facility] [address] [address] [address] Obdulia Ng MCHC (RBC) [Mass/Vol] 32.6 g/dL Normal 29.9-35.2 [facility] Comment on above: Performed By: #### C VDTBH #### [facility] [address] [address] [address] Obdulia Ng MCV (RBC) [Entitic vol] 95.4 fL Critically high 80.0-94.0 [facility] Comment on above: Performed By: #### C VDTBH #### [facility] [address] [address] [address] Obdulia Ng MONO # 1.4 103/ul Critically high 0.3-0.8 [facility] Comment on above: Performed By: #### C VDTBH #### [facility] [address] [address] [address] Obdulia Ng Monocytes/100 WBC (Bld) 14.4 % Critically high 1.7-12.0 [facility] Comment on above: Performed By: #### C VDTBH #### [facility] [address] [address] [address] Obdulia Ng NEUT # 7.2 103/ul Critically high 1.4-6.5 [facility] Comment on above: Performed By: #### C VDTBH #### [facility] [address] [place] [address] Dr. Obdulia Ng Neutrophils/100 WBC (Bld) 73.8 % Normal 43.0-75.0 [facility] Comment on above: Performed By: #### C VDTBH #### [facility] [address] [place] [address] Dr. Obdulia gN Platelet mean volume (Bld) [Entitic vol] 9.9 fL Normal 9.5-13.5 [facility] Comment on above: Performed By: #### C VDTBH #### [facility] [address] [place] [address] Dr. Obdulia Ng PLT 220 103/ul Normal 150-450 [facility] Comment on above: Performed By: #### C VDTBH #### [facility] [address] [place] [address] Dr. Obdulia Ng RBC 3.95 106/ul Critically low 4.70-6.10 [facility] Comment on above: Performed By: #### C VDTBH #### [facility] [address] [place] [address] Dr. Obdulia Ng WBC 9.7 103/ul Normal 4.0-11.0 [facility] Comment on above: Performed By: #### C VDTBH #### [facility] [address] [address] [address] Obdulia Ng POINT OF CARE GLUCOSEon 01-22 Glucose [Mass/Vol] 127 mg/dL Critically high 74-106 [facility] Comment on above: Performed By: #### P OCGLUC #### [facility] [address] [place] [address] Dr. Obdulia Ng PROF CHEM 8 (BAS METB)on Anion gap [Moles/Vol] 11.7 mmol/L Normal [facility] Comment on above: Performed By: #### P TT, PT #### [facility] [address] [place] [address] Dr. Obdulia Ng Calcium [Mass/Vol] 8.2 mg/dL Critically low 8.5-10.1 [facility] Comment on above: Performed By: #### P TT, PT #### [facility] [address] [place] [address] Dr. Obdulia Ng Chloride [Moles/Vol] 105 mmol/L Normal 98-107 [facility] Comment on above: Performed By: #### P TT, PT #### [facility] [address] [place] [address] Dr. Obdulia Ng CO2 [Moles/Vol] 27.3 mmol/L Normal 21.0-32.0 [facility] Comment on above: Performed By: #### P TT, PT #### [facility] [address] [place] [address] Dr. Obdulia Ng Creatinine [Mass/Vol] 1.22 mg/dL Normal 0.70-1.30 [facility] Comment on above: Performed By: #### P TT, PT #### [facility] [address] [place] [address] Dr. Obdulia Ng EGFR-AF PERUVIAN >60 Normal >=60 [facility] Comment on above: Performed By: #### P TT, PT #### [facility] [address] [place] [address] Dr. Obdulia Ng EGFR-NON AF PERUVIAN 57 mL/min/1.73m2 Critically low >=60 [facility] Comment on above: Performed By: #### P TT, PT #### [facility] [address] [address] [address] Obdulia Ng Glucose [Mass/Vol] 129 mg/dL Critically high 74-106 [facility] Comment on above: Performed By: #### P TT, PT #### [facility] [address] [address] [address] Obdulia Ng Potassium [Moles/Vol] 4.0 mmol/L Normal 3.5-5.1 [facility] Comment on above: Performed By: #### P TT, PT #### [facility] [address] [address] [address] Obdulia Ng Sodium [Moles/Vol] 140 mmol/L Normal 136-145 [facility] Comment on above: Performed By: #### P TT, PT #### [facility] [address] [address] [address] Obdulia Ng Urea nitrogen [Mass/Vol] 31.0 mg/dL Critically high 7.0-18.0 [facility] Comment on above: Performed By: #### P TT, PT #### [facility] [address] [address] [address] Obdulia Ng Urea nitrogen/Creatini ne [Mass ratio] 25.4 mg/mg Normal [facility] Comment on above: Performed By: #### P TT, PT #### [facility] [address] [address] [address] Obdulia Ng PROTIMEon 02-18-2022 INR Coag (PPP) [Relative time] 1.72 {INR} Normal [facility] Comment on above: Performed By: #### P OCGLUC #### [facility] [address] [place] [address] Dr. Obdulia Ng INR GUIDELINES SEE BELOW Normal [facility] Comment on above: Result Comment: BRAD RED INR: 2.0 - 3.0 CONDITIONS NOT LISTED BELOW 2.5 - 3.5 FOR PROSTHETIC HEART VALVE REPLACEMENT 2.5 - 3.5 RECURRENT THROMBOSIS Performed By: #### P OCGLUC #### [facility] [address] [place] [address] Dr. Obdulia Ng PT Coag (PPP) [Time] 17.9 s Critically high 9.0-11.6 [facility] Comment on above: Performed By: #### P OCGLUC #### [facility] [address] [place] [address] Dr. Obdulia Ng BNPon 02-17-2022 Natriuretic peptide B (Bld) [Mass/Vol] 93586.0 pg/mL Critically high <=1,800.0 [facility] Comment on above: Performed By: #### P OCGLUC #### [facility] [address] [place] [address] Dr. Obdulia Ng CBC W MANUAL DIFFon 02-18-20 22 ATYPICAL LYMPH # Normal [facility] Comment on above: Performed By: #### C VDTBH #### [facility] [address] [place] [address] Dr. Obdulia Ng ATYPICAL LYMPH % Normal [facility] Comment on above: Performed By: #### C VDTBH #### [facility] [address] [place] [address] Dr. Obdulia Ng BAND # 0.0 103/ul Normal 0.0-0.3 [facility] Comment on above: Performed By: #### C VDTBH #### [facility] [address] [place] [address] Dr. Obdulia Ng BAND % 0 % Normal 0-5 [facility] Comment on above: Performed By: #### C VDTBH #### [facility] [address] [place] [address] Dr. Obdulia Ng BASOM # 0.00 103/ul Normal 0.00-0.10 [facility] Comment on above: Performed By: #### C VDTBH #### [facility] [address] [place] [address] Dr. Obdulia Ng BASOM % 0.0 % Critically low 0.2-2.0 [facility] Comment on above: Performed By: #### C VDTBH #### [facility] [address] [address] [address] Obdulia Ng BLAST # Normal [facility] Comment on above: Performed By: #### C VDTBH #### [facility] [address] [place] [address] Dr. Obdulia Ng BLAST % Normal [facility] Comment on above: Performed By: #### C VDTBH #### [facility] [address] [address] [address] Obdulia Ng CORRECTED WBC Normal 4.0-11.0 [facility] Comment on above: Performed By: #### C VDTBH #### [facility] [address] [place] [address] Dr. Obdulia Ng EOS # 0.00 103/ul Normal 0.00-0.70 [facility] Comment on above: Performed By: #### C VDTBH #### [facility] [address] [place] [address] Dr. Obdulia Ng EOS% 0.0 % Critically low 0.9-7.0 [facility] Comment on above: Performed By: #### C VDTBH #### [facility] [address] [place] [address] Dr. Obdulia Ng HCT 35.8 % Critically low 42.0-54.0 [facility] Comment on above: Performed By: #### C VDTBH #### [facility] [address] [place] [address] Dr. bOdulia Ng HGB 11.7 g/dl Critically low 14.0-18.0 [facility] Comment on above: Performed By: #### C VDTBH #### [facility] [address] [place] [address] Dr. Obdulia Ng LYMPHM # 0.50 103/ul Critically low 1.20-3.80 [facility] Comment on above: Performed By: #### C VDTBH #### [facility] [address] [place] [address] Dr. Obdulia Ng LYMPHM% 6.0 % Critically low 20.5-60.0 [facility] Comment on above: Performed By: #### C VDTBH #### [facility] [address] [place] [address] Dr. Obdulia Ng MCH 31.6 pg Normal 25.9-34.0 [facility] Comment on above: Performed By: #### C VDTBH #### [facility] [address] [address] [address] Obdulia Ng MCHC 32.7 g/dl Normal 29.9-35.2 [facility] Comment on above: Performed By: #### C VDTBH #### [facility] [address] [place] [address] Dr. Obdulia Ng MCV 96.8 fL Critically high 80.0-94.0 [facility] Comment on above: Performed By: #### C VDTBH #### [facility] [address] [place] [address] Dr. Obdulia Ng METAMYELOCYTE # 0.2 103/ul Normal [facility] Comment on above: Performed By: #### C VDTBH #### [facility] [address] [place] [address] Dr. Obdulia Ng METAMYELOCYTE % 3 % Normal [facility] Comment on above: Performed By: #### C VDTBH #### [facility] [address] [place] [address] Dr. Obdulia Ng MONOM# 0.00 103/ul Critically low 0.30-0.80 [facility] Comment on above: Performed By: #### C VDTBH #### [facility] [address] [place] [address] Dr. Obdulia Ng MONOM% 0.0 % Critically low 1.7-12.0 [facility] Comment on above: Performed By: #### C VDTBH #### [facility] [address] [place] [address] Dr. Obdulia Ng MPV 9.7 fL Normal 9.5-13.5 [facility] Comment on above: Performed By: #### C VDTBH #### [facility] [address] [address] [address] Obdulia Ng MYELOCYTE # Normal [facility] Comment on above: Performed By: #### C VDTBH #### [facility] [address] [address] [address] Obdulia Ng MYELOCYTE % Normal [facility] Comment on above: Performed By: #### C VDTBH #### [facility] [address] [address] [address] Obdulia Ng NRBC Normal [facility] Comment on above: Performed By: #### C VDTBH #### [facility] [address] [address] [address] Obdulia Ng PLT 218 103/ul Normal 150-450 [facility] Comment on above: Performed By: #### C VDTBH #### [facility] [address] [place] [address] Dr. Obdulia Ng RBC 3.70 106/ul Critically low 4.70-6.10 [facility] Comment on above: Performed By: #### C VDTBH #### [facility] [address] [place] [address] Dr. Obdulia Ng RDW 14.6 % Normal 11.0-15.0 [facility] Comment on above: Performed By: #### C VDTBH #### [facility] [address] [place] [address] Dr. Obdulia Ng SEG # 7.55 103/ul Critically high 1.40-6.50 [facility] Comment on above: Performed By: #### C VDTBH #### [facility] [address] [place] [address] Dr. Obdulia Ng SEG % 91.0 % Critically high 43.0-75.0 [facility] Comment on above: Performed By: #### C VDTBH #### [facility] [address] [place] [address] Dr. Obdulia Ng WBC 8.3 103/ul Normal 4.0-11.0 [facility] Comment on above: Performed By: #### C VDTBH #### [facility] [address] [address] [address] Obdulia Ng POINT OF CARE GLUCOSEon 01-22 Glucose [Mass/Vol] 133 mg/dL Critically high 74-106 [facility] Comment on above: Performed By: #### P OCGLUC #### [facility] [address] [address] [address] Obdulia Ng Glucose [Mass/Vol] 255 mg/dL Critically high 74-106 [facility] Comment on above: Performed By: #### T SH, T4 #### [facility] [address] [address] [address] Obdulia Ng Glucose [Mass/Vol] 229 mg/dL Critically high 74-106 [facility] Comment on above: Performed By: #### C BC #### [facility] [address] [address] [address] Obdulia Ng Glucose [Mass/Vol] 138 mg/dL Critically high 74-106 [facility] Comment on above: Performed By: #### P TT, PT #### [facility] [address] [address] [address] Obdulia Ng PROF CHEM 8 (BAS METB)on Anion gap [Moles/Vol] 11.3 mmol/L Normal [facility] Comment on above: Performed By: #### P OCGLUC #### [facility] [address] [address] [address] Obdulia Ng Calcium [Mass/Vol] 8.2 mg/dL Critically low 8.5-10.1 [facility] Comment on above: Performed By: #### P OCGLUC #### [facility] [address] [address] [address] Obdulia Ng Chloride [Moles/Vol] 104 mmol/L Normal 98-107 [facility] Comment on above: Performed By: #### P OCGLUC #### [facility] [address] [address] [address] Obdulia Ng CO2 [Moles/Vol] 27.7 mmol/L Normal 21.0-32.0 [facility] Comment on above: Performed By: #### P OCGLUC #### [facility] [address] [address] [address] Obdulia Ng Creatinine [Mass/Vol] 1.34 mg/dL Critically high 0.70-1.30 [facility] Comment on above: Performed By: #### P OCGLUC #### [facility] [address] [address] [address] Obdulia Ng EGFR-AF PERUVIAN >60 Normal >=60 [facility] Comment on above: Performed By: #### P OCGLUC #### [facility] [address] [address] [address] Obdulia Ng EGFR-NON AF PERUVIAN 51 mL/min/1.73m2 Critically low >=60 [facility] Comment on above: Performed By: #### P OCGLUC #### [facility] [address] [address] [address] Obdulia Ng Glucose [Mass/Vol] 160 mg/dL Critically high 74-106 [facility] Comment on above: Performed By: #### P OCGLUC #### [facility] [address] [address] [address] Obdulia Ng Potassium [Moles/Vol] 4.0 mmol/L Normal 3.5-5.1 [facility] Comment on above: Performed By: #### P OCGLUC #### [facility] [address] [address] [address] Obdulia Ng Sodium [Moles/Vol] 139 mmol/L Normal 136-145 [facility] Comment on above: Performed By: #### P OCGLUC #### [facility] [address] [address] [address] Obdulia Ng Urea nitrogen [Mass/Vol] 24.0 mg/dL Critically high 7.0-18.0 [facility] Comment on above: Performed By: #### P OCGLUC #### [facility] [address] [address] [address] Obdulia Ng Urea nitrogen/Creatini ne [Mass ratio] 17.9 mg/mg Normal [facility] Comment on above: Performed By: #### P OCGLUC #### [facility] [address] [address] [address] Obdulia Ng PROTIMEon 02-17-2022 INR Coag (PPP) [Relative time] 2.41 {INR} Normal [facility] Comment on above: Performed By: #### C VDTBH #### [facility] [address] [place] [address] Dr. Obdulia Ng INR GUIDELINES SEE BELOW Normal [facility] Comment on above: Result Comment: BRAD RED INR: 2.0 - 3.0 CONDITIONS NOT LISTED BELOW 2.5 - 3.5 FOR PROSTHETIC HEART VALVE REPLACEMENT 2.5 - 3.5 RECURRENT THROMBOSIS Performed By: #### C VDTBH #### [facility] [address] [place] [address] Dr. Obdulia Ng PT Coag (PPP) [Time] 24.6 s Critically high 9.0-11.6 [facility] Comment on above: Performed By: #### C VDTBH #### [facility] [address] [place] [address] Dr. Obdulia Ng XR CHEST 2 Von [...] BROOKS STEPHENSON Date: 2022-02-17 07:01 Normal [facility] BNPon 02-16-2022 Natriuretic peptide B (Bld) [Mass/Vol] 01858.0 pg/mL Critically high <=1,800.0 [facility] Comment on above: Performed By: #### C BC #### [facility] [address] [place] [address] Dr. Obdulia Ng CBC AUTO DIFFon 02-16-2022 BASO # 0.1 103/ul Normal 0.0-0.1 [facility] Comment on above: Performed By: #### C VDTBH #### [facility] [address] [place] [address] Dr. Obdulia Ng Basophils/100 WBC (Bld) 0.4 % Normal 0.2-2.0 [facility] Comment on above: Performed By: #### C VDTBH #### [facility] [address] [place] [address] Dr. Obdulia Ng EO # 0.0 103/ul Normal 0.0-0.7 [facility] Comment on above: Performed By: #### C VDTBH #### [facility] [address] [place] [address] Dr. Obdulia Ng Eosinophils/100 WBC (Bld) 0.0 % Critically low 0.9-7.0 [facility] Comment on above: Performed By: #### C VDTBH #### [facility] [address] [place] [address] Dr. Obdulia Ng Erythrocyte distribution width (RBC) [Ratio] 14.6 % Normal 11.0-15.0 [facility] Comment on above: Performed By: #### C VDTBH #### [facility] [address] [place] [address] Dr. Obdulia Ng Hematocrit (Bld) [Volume fraction] 40.8 % Critically low 42.0-54.0 [facility] Comment on above: Performed By: #### C VDTBH #### [facility] [address] [place] [address] Dr. Obdulia Ng Hemoglobin (Bld) [Mass/Vol] 13.3 g/dL Critically low 14.0-18.0 [facility] Comment on above: Performed By: #### C VDTBH #### [facility] [address] [place] [address] Dr. Obdulia Ng IG # 0.05 10e3/ul Critically high 0.00-0.03 [facility] Comment on above: Performed By: #### C VDTBH #### [facility] [address] [address] [address] Obdulia Ng IG % 0.4 % Normal 0.0-0.5 [facility] Comment on above: Performed By: #### C VDTBH #### [facility] [address] [address] [address] Obdulia Ng LYMPH # 0.5 103/ul Critically low 1.2-3.8 [facility] Comment on above: Performed By: #### C VDTBH #### [facility] [address] [address] [address] Obdulia Ng Lymphocytes/100 WBC (Bld) 3.7 % Critically low 20.5-60.0 [facility] Comment on above: Performed By: #### C VDTBH #### [facility] [address] [address] [address] Obdulia Ng MANUAL DIFF REQ NO Normal [facility] Comment on above: Performed By: #### C VDTBH #### [facility] [address] [address] [address] Obdulia Ng MCH (RBC) [Entitic mass] 31.7 pg Normal 25.9-34.0 [facility] Comment on above: Performed By: #### C VDTBH #### [facility] [address] [address] [address] Obdulia Ng MCHC (RBC) [Mass/Vol] 32.6 g/dL Normal 29.9-35.2 [facility] Comment on above: Performed By: #### C VDTBH #### [facility] [address] [address] [address] Obdulia Ng MCV (RBC) [Entitic vol] 97.1 fL Critically high 80.0-94.0 [facility] Comment on above: Performed By: #### C VDTBH #### [facility] [address] [address] [address] Obdulia Ng MONO # 1.0 103/ul Critically high 0.3-0.8 [facility] Comment on above: Performed By: #### C VDTBH #### [facility] [address] [place] [address] Dr. Obdulia Ng Monocytes/100 WBC (Bld) 7.7 % Normal 1.7-12.0 [facility] Comment on above: Performed By: #### C VDTBH #### [facility] [address] [place] [address] Dr. Obdulia Ng NEUT # 11.3 103/ul Critically high 1.4-6.5 [facility] Comment on above: Performed By: #### C VDTBH #### [facility] [address] [place] [address] Dr. Obdulia Ng Neutrophils/100 WBC (Bld) 87.8 % Critically high 43.0-75.0 [facility] Comment on above: Performed By: #### C VDTBH #### [facility] [address] [place] [address] Dr. Obdulia Ng Platelet mean volume (Bld) [Entitic vol] 10.2 fL Normal 9.5-13.5 [facility] Comment on above: Performed By: #### C VDTBH #### [facility] [address] [place] [address] Dr. Obdulia Ng PLT 262 103/ul Normal 150-450 [facility] Comment on above: Performed By: #### C VDTBH #### [facility] [address] [place] [address] Dr. Obdulia Ng RBC 4.20 106/ul Critically low 4.70-6.10 [facility] Comment on above: Performed By: #### C VDTBH #### [facility] [address] [place] [address] Dr. Obdulia Ng WBC 12.9 103/ul Critically high 4.0-11.0 [facility] Comment on above: Performed By: #### C VDTBH #### [facility] [address] [place] [address] Dr. Obdulia Ng CULTURE BLOODon 09-27-2022 Microscopic examination of blood, culture Culture Observations: NO GROWTH AT 5 DAYS. Normal [facility] Comment on above: Performed By: #### T SH, T4 #### [facility] [address] [place] [address] Dr. Obdulia Ng Microscopic examination of blood, culture Culture Observations: NO GROWTH AT 5 DAYS. Normal [facility] Comment on above: Performed By: #### T SH, T4 #### [facility] [address] [place] [address] Dr. Obdulia Ng CULTURE URINEon 02-16-2022 CULTURE URINE Culture Observations : NO GROWTH. Normal [facility] Comment on above: Performed By: #### T SH, T4 #### [facility] [address] [place] [address] Dr. Obdulia Ng [facility]22 SARS-CoV-2 (COVID-19) RNA SHELBY+probe Ql (Unsp spec) Detected Critically abnormal NOT DETECTED [facility] Comment on above: Result Comment: This test is not yet approved or cleared by the [place] FDA. When there are no FDA-approved or cleared tests available, and other criteria are met, FDA can make tests available under an emergency access mechanism called an Emergency Use Authorization (EUA). The EUA for this test is supported by the Joist Setter of Health and Human Service's declaration that [...] used). Performed By: #### C BC #### [facility] [address] [place] [address] Dr. Obdulia Ng ER URINE PROFILEon Bilirubin Ql (U) Negative Normal NEGATIVE [facility] Comment on above: Performed By: #### P OCGLUC #### [facility] [address] [place] [address] Dr. Obdulia Ng Clarity (U) SL CLOUDY Abnormal CLEAR [facility] Comment on above: Performed By: #### P OCGLUC #### [facility] [facility] [address] [address] [address] Obdulia KHANAHRonnie A micrscopic examina tion will be performed if indicated. Normal [facility] Comment on above: Performed By: #### P OCGLUC #### [facility] [address] [address] [address] Obdulia Ng Glucose Ql (U) Negative Normal NEGATIVE [facility] Comment on above: Performed By: #### P OCGLUC #### [facility] [address] [address] [address] Obdulia Ng Hemoglobin Ql (U) Negative Normal NEGATIVE [facility] Comment on above: Performed By: #### P OCGLUC #### [facility] [address] [address] [address] Obdulia Ng Ketones Ql (U) Negative Normal NEGATIVE [facility] Comment on above: Performed By: #### P OCGLUC #### [facility] [address] [address] [address] Obdulia Ng LEUKOCYTES TRACE Abnormal NEGATIVE [facility] Comment on above: Performed By: #### P OCGLUC #### [facility] [address] [address] [address] Obdulia Ng Nitrite Ql (U) Negative Normal NEGATIVE [facility] Comment on above: Performed By: #### P OCGLUC #### [facility] [address] [address] [address] Obdulia Ng pH (U) 5.5 [pH] Normal 5-9 [facility] Comment on above: Performed By: #### P OCGLUC #### [facility] [address] [address] [address] Obdulia Ng SPEC GRAVITY 1.015 Normal 1.005-<=1. 025 [facility] Comment on above: Performed By: #### P OCGLUC #### [facility] [address] [address] [address] Obdulia Ng UA PROTEIN Negative Normal NEGATIVE/ TRACE [facility] Comment on above: Performed By: #### P OCGLUC #### [facility] [address] [address] [address] Obdulia Ng UR MICRO IND INDICATED Normal [facility] Comment on above: Performed By: #### P OCGLUC #### [facility] [address] [address] [address] Obdulia Ng Urobilinogen Qn (U) 1.0 {Cachorro'U}/dL Normal 0.2 - 1.0 [facility] Comment on above: Performed By: #### P OCGLUC #### [facility] [address] [address] [address] Obdulia Ng LACTATE/LACTIC ACIDon 2021 Lactate [Moles/Vol] 1.7 mmol/L Normal 0.4-1.9 [facility] Comment on above: Performed By: #### P OCGLUC #### [facility] [address] [place] [address] Dr. Obdulia Ng Lactate [Moles/Vol] 2.7 mmol/L Critically high 0.4-1.9 [facility] Comment on above: Performed By: #### C BC #### [facility] [address] [place] [address] Dr. Obdulia Ng PH VENOUS BLOODon 02-16-2022 PCO2 VENOUS 40.5 mmHg Normal 40.0-52.0 [facility] Comment on above: Performed By: #### P TT, PT #### [facility] [address] [place] [address] Dr. Obdulia Ng pH VENOUS 7.368 Normal 7.330-7.43 0 [facility] Comment on above: Performed By: #### P TT, PT #### [facility] [address] [address] [address] Obdulia Ng POINT OF CARE GLUCOSEon 01-22 Glucose [Mass/Vol] 290 mg/dL Critically high 74-106 [facility] Comment on above: Performed By: #### C BC #### [facility] [address] [place] [address] Dr. Obdulia Ng PROF 14(COMP METB)on 09-27-2 022 Albumin [Mass/Vol] 3.5 g/dL Normal 3.4-5.0 [facility] Comment on above: Performed By: #### C BC #### [facility] [address] [place] [address] Dr. Obdulia Ng Albumin/Globulin [Mass ratio] 1.2 {ratio} Normal [facility] Comment on above: Performed By: #### C BC #### [facility] [address] [place] [address] Dr. Obdulia Ng ALP [Catalytic activity/Vol] 78 U/L Normal 46-116 [facility] Comment on above: Performed By: #### C BC #### [facility] [address] [place] [address] Dr. Obdulia Ng ALT [Catalytic activity/Vol] 48 U/L Normal 16-63 [facility] Comment on above: Performed By: #### C BC #### [facility] [address] [place] [address] Dr. Obdulia Ng Anion gap [Moles/Vol] 15.4 mmol/L Normal [facility] Comment on above: Performed By: #### C BC #### [facility] [address] [place] [address] Dr. Obdulia Ng AST [Catalytic activity/Vol] 24 U/L Normal 15-37 [facility] Comment on above: Performed By: #### C BC #### [facility] [address] [place] [address] Dr. Obdulia Ng Bilirubin [Mass/Vol] 1.6 mg/dL Critically high 0.2-1.0 [facility] Comment on above: Performed By: #### C BC #### [facility] [address] [place] [address] Dr. Obdulia Ng Calcium [Mass/Vol] 8.7 mg/dL Normal 8.5-10.1 [facility] Comment on above: Performed By: #### C BC #### [facility] [address] [place] [address] Dr. Obdulia Ng Chloride [Moles/Vol] 103 mmol/L Normal 98-107 [facility] Comment on above: Performed By: #### C BC #### [facility] [address] [address] [address] Obdulia Ng CO2 [Moles/Vol] 22.9 mmol/L Normal 21.0-32.0 [facility] Comment on above: Performed By: #### C BC #### [facility] [address] [address] [address] Obdulia Ng Creatinine [Mass/Vol] 1.34 mg/dL Critically high 0.70-1.30 [facility] Comment on above: Performed By: #### C BC #### [facility] [address] [address] [address] Obdulia Ng EGFR-AF PERUVIAN >60 Normal >=60 [facility] Comment on above: Performed By: #### C BC #### [facility] [address] [place] [address] Dr. Obdulia Ng EGFR-NON AF PERUVIAN 51 mL/min/1.73m2 Critically low >=60 [facility] Comment on above: Performed By: #### C BC #### [facility] [address] [address] [address] Obdulia Ng Globulin (S) [Mass/Vol] 2.9 g/dL Normal [facility] Comment on above: Performed By: #### C BC #### [facility] [address] [place] [address] Dr. Obdulia Ng Glucose [Mass/Vol] 181 mg/dL Critically high 74-106 [facility] Comment on above: Performed By: #### C BC #### [facility] [address] [place] [address] Dr. Obdulia Ng Potassium [Moles/Vol] 4.3 mmol/L Normal 3.5-5.1 [facility] Comment on above: Performed By: #### C BC #### [facility] [address] [place] [address] Dr. Obdulia Ng Protein [Mass/Vol] 6.4 g/dL Normal 6.4-8.2 [facility] Comment on above: Performed By: #### C BC #### [facility] [address] [place] [address] Dr. Obdulia Ng Sodium [Moles/Vol] 137 mmol/L Normal 136-145 [facility] Comment on above: Performed By: #### C BC #### [facility] [address] [place] [address] Dr. Obdulia Ng Urea nitrogen [Mass/Vol] 23.0 mg/dL Critically high 7.0-18.0 [facility] Comment on above: Performed By: #### C BC #### [facility] [address] [place] [address] Dr. Obdulia Ng Urea nitrogen/Creatini ne [Mass ratio] 17.2 mg/mg Normal [facility] Comment on above: Performed By: #### C BC #### [facility] [address] [place] [address] Dr. Obdulia Ng PROTIMEon 02-16-2022 INR Coag (PPP) [Relative time] 2.40 {INR} Normal [facility] Comment on above: Performed By: #### P OCGLUC #### [facility] [address] [place] [address] Dr. Obdulia Ng INR GUIDELINES SEE BELOW Normal [facility] Comment on above: Result Comment: BRAD RED INR: 2.0 - 3.0 CONDITIONS NOT LISTED BELOW 2.5 - 3.5 FOR PROSTHETIC HEART VALVE REPLACEMENT 2.5 - 3.5 RECURRENT THROMBOSIS Performed By: #### P OCGLUC #### [facility] [address] [place] [address] Dr. Obdulia Ng PT Coag (PPP) [Time] 24.5 s Critically high 9.0-11.6 [facility] Comment on above: Performed By: #### P OCGLUC #### [facility] [address] [place] [address] Dr. Obdulia Ng PTTon 02-16-2022 aPTT Coag (Bld) [Time] 31.4 s Normal 22.3-36.2 [facility] Comment on above: Performed By: #### P OCGLUC #### [facility] [address] [place] [address] Dr. Obdulia Ng TROPONIN, HIGH SENSITIVITYon 02-16-2022 HSTROP 18.2 pg/mL Normal 4.0-76.1 [facility] Comment on above: Result Comment: CUT- OFF POINTS HAVE BEEN ESTABLISHED BASED ON THE FOURTH UNIVERSAL DEFINITIONS OF MYOCARDIAL INFARCTION. THE UPPER REFERENCE LIMIT (URL) OF TROPONIN, DEFINED THE 99TH PERCENTILE OF cTnI DISTRIBUTION IN A REFERENCE POPULATION, HAS BEEN CONFIRMED THE DECISION THRESHOLD FOR IN DIAGNOSIS. Performed By: #### C BC #### [facility] [address] [place] [address] Dr. Obdulia Ng URINE MICROSCOPIC ONLYon BACTERIA TRACE Abnormal NONE SEEN [facility] Comment on above: Performed By: #### P OCGLUC #### [facility] [address] [place] [address] Dr. Obdulia Ng Bacteria identified Cx Nom (U) INDICATED Normal [facility] Comment on above: Performed By: #### P OCGLUC #### [facility] [address] [place] [address] Dr. Obdulia Ng CAST NONE SEEN Normal NONE SEEN [facility] Comment on above: Performed By: #### P OCGLUC #### [facility] [address] [place] [address] Dr. Obdulia Ng Crystals LM Nom (Urine sed) NONE SEEN Normal NONE SEEN [facility] Comment on above: Performed By: #### P OCGLUC #### [facility] [address] [place] [address] Dr. Obdulia Ng Epithelial cells LM Ql (Urine sed) FEW Abnormal NONE SEEN /RARE [facility] Comment on above: Performed By: #### P OCGLUC #### [facility] [address] [place] [address] Dr. Obdulia Ng MUCOUS NONE SEEN Normal NONE SEEN [facility] Comment on above: Performed By: #### P OCGLUC #### [facility] [address] [place] [address] Dr. Obdulia Ng RBC NONE SEEN Abnormal 0-2 [facility] Comment on above: Performed By: #### P OCGLUC #### [facility] [address] [place] [address] Dr. Obdulia Ng WBC 2-5 Abnormal NONE SEEN [facility] Comment on above: Performed By: #### P OCGLUC #### [facility] [address] [address] [address] Obdulia Ng XR CHEST 1 Von [...] by: CHEPE ROLLINS Date: 2022-02-16 15:14 Normal [facility] Abstracton 01-30-2022 Abstract [id number] Joby Bergman 1940 [facility] Provider Department Center 01/30/2022 Kaitlyn8-HUGO CORCORAN [facility] Family History Problem Relation Age of Onset Heart attack Father Family Status - Relation Status Age at Father Normal [facility] BNPon 12-24-2021 Natriuretic peptide B (Bld) [Mass/Vol] 8490.0 pg/mL Critically high <=1,800.0 [facility] Comment on above: Performed By: #### C BC #### [facility] [address] [address] [address] Obdulia Ng CBC AUTO DIFFon 12-24-2021 BASO # 0.1 103/ul Normal 0.0-0.1 [facility] Comment on above: Performed By: #### C BC #### [facility] [address] [address] [address] Obdulia Ng Basophils/100 WBC (Bld) 0.7 % Normal 0.2-2.0 [facility] Comment on above: Performed By: #### C BC #### [facility] [address] [place] [address] Dr. Obdulia Ng EO # 0.1 103/ul Normal 0.0-0.7 [facility] Comment on above: Performed By: #### C BC #### [facility] [address] [place] [address] Dr. Obdulia Ng Eosinophils/100 WBC (Bld) 0.8 % Critically low 0.9-7.0 [facility] Comment on above: Performed By: #### C BC #### [facility] [address] [place] [address] Dr. Obdulia Ng Erythrocyte distribution width (RBC) [Ratio] 13.2 % Normal 11.0-15.0 [facility] Comment on above: Performed By: #### C BC #### [facility] [address] [place] [address] Dr. Obdulia Ng Hematocrit (Bld) [Volume fraction] 38.7 % Critically low 42.0-54.0 [facility] Comment on above: Performed By: #### C BC #### [facility] [address] [place] [address] Dr. Obdulia Ng Hemoglobin (Bld) [Mass/Vol] 12.6 g/dL Critically low 14.0-18.0 [facility] Comment on above: Performed By: #### C BC #### [facility] [address] [place] [address] Dr. Obdulia Ng IG # 0.03 10e3/ul Normal 0.00-0.03 [facility] Comment on above: Performed By: #### C BC #### [facility] [address] [place] [address] Dr. Obdulia Ng IG % 0.3 % Normal 0.0-0.5 [facility] Comment on above: Performed By: #### C BC #### [facility] [address] [place] [address] Dr. Obdulia Ng LYMPH # 1.7 103/ul Normal 1.2-3.8 [facility] Comment on above: Performed By: #### C BC #### [facility] [address] [address] [address] Obdulia Ng Lymphocytes/100 WBC (Bld) 18.9 % Critically low 20.5-60.0 [facility] Comment on above: Performed By: #### C BC #### [facility] [address] [address] [address] Obdulia Ng MANUAL DIFF REQ NO Normal [facility] Comment on above: Performed By: #### C BC #### [facility] [address] [place] [address] Dr. Obdulia Ng MCH (RBC) [Entitic mass] 31.3 pg Normal 25.9-34.0 [facility] Comment on above: Performed By: #### C BC #### [facility] [address] [place] [address] Dr. Obdulia Ng MCHC (RBC) [Mass/Vol] 32.6 g/dL Normal 29.9-35.2 [facility] Comment on above: Performed By: #### C BC #### [facility] [address] [place] [address] Dr. Obdulia Ng MCV (RBC) [Entitic vol] 96.0 fL Critically high 80.0-94.0 [facility] Comment on above: Performed By: #### C BC #### [facility] [address] [place] [address] Dr. Obdulia Ng MONO # 0.8 103/ul Normal 0.3-0.8 [facility] Comment on above: Performed By: #### C BC #### [facility] [address] [place] [address] Dr. Obdulia Ng Monocytes/100 WBC (Bld) 9.0 % Normal 1.7-12.0 [facility] Comment on above: Performed By: #### C BC #### [facility] [address] [place] [address] Dr. Obdulia Ng NEUT # 6.1 103/ul Normal 1.4-6.5 [facility] Comment on above: Performed By: #### C BC #### [facility] [address] [place] [address] Dr. Obdulia Ng Neutrophils/100 WBC (Bld) 70.3 % Normal 43.0-75.0 [facility] Comment on above: Performed By: #### C BC #### [facility] [address] [place] [address] Dr. Obdulia Ng Platelet mean volume (Bld) [Entitic vol] 9.5 fL Normal 9.5-13.5 [facility] Comment on above: Performed By: #### C BC #### [facility] [address] [place] [address] Dr. Obdulia Ng PLT 307 103/ul Normal 150-450 [facility] Comment on above: Performed By: #### C BC #### [facility] [address] [place] [address] Dr. Obdulia Ng RBC 4.03 106/ul Critically low 4.70-6.10 [facility] Comment on above: Performed By: #### C BC #### [facility] [address] [place] [address] Dr. Obdulia Ng WBC 8.7 103/ul Normal 4.0-11.0 [facility] Comment on above: Performed By: #### C BC #### [facility] [address] [place] [address] Dr. Obdulia Ng PROF 14(COMP METB)on 022 Albumin [Mass/Vol] 3.3 g/dL Critically low 3.4-5.0 [facility] Comment on above: Performed By: #### C BC #### [facility] [address] [place] [address] Dr. Obdulia Ng Albumin/Globulin [Mass ratio] 1.1 {ratio} Normal [facility] Comment on above: Performed By: #### C BC #### [facility] [address] [place] [address] Dr. Obdulia Ng ALP [Catalytic activity/Vol] 74 U/L Normal 46-116 [facility] Comment on above: Performed By: #### C BC #### [facility] [address] [place] [address] Dr. Obdulia Ng ALT [Catalytic activity/Vol] 51 U/L Normal 16-63 [facility] Comment on above: Performed By: #### C BC #### [facility] [address] [place] [address] Dr. Obdulia Ng Anion gap [Moles/Vol] 12.8 mmol/L Normal [facility] Comment on above: Performed By: #### C BC #### [facility] [address] [address] [address] Obdulia Ng AST [Catalytic activity/Vol] 24 U/L Normal 15-37 [facility] Comment on above: Performed By: #### C BC #### [facility] [address] [place] [address] Dr. Obdulia Ng Bilirubin [Mass/Vol] 1.1 mg/dL Critically high 0.2-1.0 [facility] Comment on above: Performed By: #### C BC #### [facility] [address] [place] [address] Dr. Obdulia Ng Calcium [Mass/Vol] 8.7 mg/dL Normal 8.5-10.1 [facility] Comment on above: Performed By: #### C BC #### [facility] [address] [place] [address] Dr. Obdulia Ng Chloride [Moles/Vol] 103 mmol/L Normal 98-107 [facility] Comment on above: Performed By: #### C BC #### [facility] [address] [place] [address] Dr. Obdulia Ng CO2 [Moles/Vol] 29.8 mmol/L Normal 21.0-32.0 [facility] Comment on above: Performed By: #### C BC #### [facility] [address] [place] [address] Dr. Obdulia Ng Creatinine [Mass/Vol] 1.22 mg/dL Normal 0.70-1.30 [facility] Comment on above: Performed By: #### C BC #### [facility] [address] [place] [address] Dr. Obdulia Ng EGFR-AF PERUVIAN >60 Normal >=60 [facility] Comment on above: Performed By: #### C BC #### [facility] [address] [address] [address] Obdulia Ng EGFR-NON AF PERUVIAN 57 mL/min/1.73m2 Critically low >=60 [facility] Comment on above: Performed By: #### C BC #### [facility] [address] [address] [address] Obdulia Ng Globulin (S) [Mass/Vol] 3.1 g/dL Normal [facility] Comment on above: Performed By: #### C BC #### [facility] [address] [address] [address] Obdulia Ng Glucose [Mass/Vol] 104 mg/dL Normal 74-106 [facility] Comment on above: Performed By: #### C BC #### [facility] [address] [address] [address] Obdulia Ng Potassium [Moles/Vol] 3.6 mmol/L Normal 3.5-5.1 [facility] Comment on above: Performed By: #### C BC #### [facility] [address] [address] [address] Obdulia Ng Protein [Mass/Vol] 6.4 g/dL Normal 6.4-8.2 [facility] Comment on above: Performed By: #### C BC #### [facility] [address] [address] [address] Obdulia Ng Sodium [Moles/Vol] 142 mmol/L Normal 136-145 [facility] Comment on above: Performed By: #### C BC #### [facility] [address] [address] [address] Obdulia Ng Urea nitrogen [Mass/Vol] 20.0 mg/dL Critically high 7.0-18.0 [facility] Comment on above: Performed By: #### C BC #### [facility] [address] [address] [address] Obdulia Ng Urea nitrogen/Creatini ne [Mass ratio] 16.4 mg/mg Normal [facility] Comment on above: Performed By: #### C BC #### [facility] [address] [place] [address] Dr. Obdulia Ng T3, TOTAL (TRIIODOTHYRONINE) on 12-24-2021 T3, TOTAL 94 ng/dL Normal 71-180 [facility] Comment on above: Performed By: #### P TT, PT #### [facility] [address] [place] [address] Dr. Obdulia Ng BNPon 2021 Natriuretic peptide B (Bld) [Mass/Vol] 6998.0 pg/mL Critically high <=1,800.0 [facility] Comment on above: Performed By: #### P OCGLUC #### [facility] [address] [place] [address] Dr. Obdulia Ng CARDIAC MARIPOSA 3-6on 2 CK [Catalytic activity/Vol] 86 U/L Normal 39-308 [facility] Comment on above: Performed By: #### P TT, PT #### [facility] [address] [place] [address] Dr. Obdulia Ng CK.MB [Mass/Vol] 2.13 ng/mL Normal <=3.60 [facility] Comment on above: Performed By: #### P TT, PT #### [facility] [address] [place] [address] Dr. Obdulia Ng HSTROP 14.4 pg/mL Normal 4.0-76.1 [facility] Comment on above: Result Comment: CUT- OFF POINTS HAVE BEEN ESTABLISHED BASED ON THE FOURTH UNIVERSAL DEFINITIONS OF MYOCARDIAL INFARCTION. THE UPPER REFERENCE LIMIT (URL) OF TROPONIN, DEFINED THE 99TH PERCENTILE OF cTnI DISTRIBUTION IN A REFERENCE POPULATION, HAS BEEN CONFIRMED THE DECISION THRESHOLD FOR IN DIAGNOSIS. Performed By: #### P TT, PT #### [facility] [address] [place] [address] Dr. Obdulia Ng CK [Catalytic activity/Vol] 84 U/L Normal 39-308 [facility] Comment on above: Performed By: #### P OCGLUC #### [facility] [address] [place] [address] Dr. Obdulia Ng CK.MB [Mass/Vol] 2.16 ng/mL Normal <=3.60 [facility] Comment on above: Performed By: #### P OCGLUC #### [facility] [address] [place] [address] Dr. Obdulia Ng HSTROP 15.8 pg/mL Normal 4.0-76.1 [facility] Comment on above: Result Comment: CUT- OFF POINTS HAVE BEEN ESTABLISHED BASED ON THE FOURTH UNIVERSAL DEFINITIONS OF MYOCARDIAL INFARCTION. THE UPPER REFERENCE LIMIT (URL) OF TROPONIN, DEFINED THE 99TH PERCENTILE OF cTnI DISTRIBUTION IN A REFERENCE POPULATION, HAS BEEN CONFIRMED THE DECISION THRESHOLD FOR IN DIAGNOSIS. Performed By: #### P OCGLUC #### [facility] [address] [place] [address] Dr. Obdulia Ng CBC AUTO DIFFon 2021 BASO # 0.0 103/ul Normal 0.0-0.1 [facility] Comment on above: Performed By: #### C BC #### [facility] [address] [place] [address] Dr. Obdulia Ng Basophils/100 WBC (Bld) 0.4 % Normal 0.2-2.0 [facility] Comment on above: Performed By: #### C BC #### [facility] [address] [place] [address] Dr. Obdulia Ng EO # 0.0 103/ul Normal 0.0-0.7 [facility] Comment on above: Performed By: #### C BC #### [facility] [address] [place] [address] Dr. Obdulia Ng Eosinophils/100 WBC (Bld) 0.2 % Critically low 0.9-7.0 [facility] Comment on above: Performed By: #### C BC #### [facility] [address] [place] [address] Dr. Obdulia Ng Erythrocyte distribution width (RBC) [Ratio] 13.2 % Normal 11.0-15.0 [facility] Comment on above: Performed By: #### C BC #### [facility] [address] [place] [address] Dr. Obdulia Ng Hematocrit (Bld) [Volume fraction] 35.1 % Critically low 42.0-54.0 [facility] Comment on above: Performed By: #### C BC #### [facility] [address] [address] [address] Obdulia Ng Hemoglobin (Bld) [Mass/Vol] 11.6 g/dL Critically low 14.0-18.0 [facility] Comment on above: Performed By: #### C BC #### [facility] [address] [address] [address] Obdulia Ng IG # 0.04 10e3/ul Critically high 0.00-0.03 [facility] Comment on above: Performed By: #### C BC #### [facility] [address] [place] [address] Dr. Obdulia Ng IG % 0.4 % Normal 0.0-0.5 [facility] Comment on above: Performed By: #### C BC #### [facility] [address] [address] [address] Obdulia Ng LYMPH # 0.7 103/ul Critically low 1.2-3.8 [facility] Comment on above: Performed By: #### C BC #### [facility] [address] [place] [address] Dr. Obdulia Ng Lymphocytes/100 WBC (Bld) 6.9 % Critically low 20.5-60.0 [facility] Comment on above: Performed By: #### C BC #### [facility] [address] [place] [address] Dr. Obdulia Ng MANUAL DIFF REQ NO Normal [facility] Comment on above: Performed By: #### C BC #### [facility] [address] [place] [address] Dr. Obdulia Ng MCH (RBC) [Entitic mass] 31.6 pg Normal 25.9-34.0 [facility] Comment on above: Performed By: #### C BC #### [facility] [address] [place] [address] Dr. Odbulia Ng MCHC (RBC) [Mass/Vol] 33.0 g/dL Normal 29.9-35.2 [facility] Comment on above: Performed By: #### C BC #### [facility] [address] [address] [address] Obdulia Ng MCV (RBC) [Entitic vol] 95.6 fL Critically high 80.0-94.0 [facility] Comment on above: Performed By: #### C BC #### [facility] [address] [place] [address] Dr. Obdulia Ng MONO # 0.6 103/ul Normal 0.3-0.8 [facility] Comment on above: Performed By: #### C BC #### [facility] [address] [place] [address] Dr. Obdulia Ng Monocytes/100 WBC (Bld) 5.7 % Normal 1.7-12.0 [facility] Comment on above: Performed By: #### C BC #### [facility] [address] [place] [address] Dr. Obdulia Ng NEUT # 8.8 103/ul Critically high 1.4-6.5 [facility] Comment on above: Performed By: #### C BC #### [facility] [address] [place] [address] Dr. Obdulia Ng Neutrophils/100 WBC (Bld) 86.4 % Critically high 43.0-75.0 [facility] Comment on above: Performed By: #### C BC #### [facility] [address] [place] [address] Dr. Obdulia Ng Platelet mean volume (Bld) [Entitic vol] 9.2 fL Critically low 9.5-13.5 [facility] Comment on above: Performed By: #### C BC #### [facility] [address] [place] [address] Dr. Obdulia Ng PLT 268 103/ul Normal 150-450 [facility] Comment on above: Performed By: #### C BC #### [facility] [address] [place] [address] Dr. Obdulia Ng RBC 3.67 106/ul Critically low 4.70-6.10 [facility] Comment on above: Performed By: #### C BC #### [facility] [address] [address] [address] Obdulia Ng WBC 10.2 103/ul Normal 4.0-11.0 [facility] Comment on above: Performed By: #### C BC #### [facility] [address] [address] [address] Obdulia Ng CULTURE URINEon 2021 CULTURE URINE Culture Observations : NO GROWTH. Normal [facility] Comment on above: Performed By: #### T SH, T4 #### [facility] [address] [address] [address] Ob[facility]ul[facility]on SARS-CoV-2 (COVID-19) RNA SHELBY+probe Ql (Unsp spec) Not detected Normal NOT DETECTED [facility] Comment on above: Result Comment: When diagnostic [...] for this test is supported by the Joist Setter of Health and Human Service's declaration that [...] used). Performed By: #### P OCGLUC #### [facility] [address] [place] [address] Dr. Obdulia Ng ECHOCARDIO M/2D COMPLETEon 0 2021 ECHOCARDIO M/2D COMPLETE Patient: ELVIRA BERGMAN Exam Date: 2021 : 1940 Gender:M Ordering : DR BRIDGET FARLEY . Admission #: [id number] Family : Order #: [id number] CLICK HERE TO VIEW EXAM ECHOCARDIOGRAM REPORT [...] Sánchez M.D. on 2021 at 17:33 Normal [facility] POINT OF CARE GLUCOSEon 08-0 Glucose [Mass/Vol] 116 mg/dL Critically high 74-106 [facility] Comment on above: Performed By: #### C BC #### [facility] [address] [place] [address] Dr. Obdulia Ng Glucose [Mass/Vol] 233 mg/dL Critically high 74-106 [facility] Comment on above: Performed By: #### P OCGLUC #### [facility] [address] [address] [address] Obdulia Ng PROF CHEM 8 (BAS METB)on Anion gap [Moles/Vol] 14.5 mmol/L Normal [facility] Comment on above: Performed By: #### P OCGLUC #### [facility] [address] [address] [address] Obdulia Ng Calcium [Mass/Vol] 8.5 mg/dL Normal 8.5-10.1 [facility] Comment on above: Performed By: #### P OCGLUC #### [facility] [address] [address] [address] Obdulia Ng Chloride [Moles/Vol] 105 mmol/L Normal 98-107 [facility] Comment on above: Performed By: #### P OCGLUC #### [facility] [address] [address] [address] Obdulia Ng CO2 [Moles/Vol] 23.8 mmol/L Normal 21.0-32.0 [facility] Comment on above: Performed By: #### P OCGLUC #### [facility] [address] [address] [address] Obdulia Ng Creatinine [Mass/Vol] 1.08 mg/dL Normal 0.70-1.30 [facility] Comment on above: Performed By: #### P OCGLUC #### [facility] [address] [address] [address] Obdulia Ng EGFR-AF PERUVIAN >60 Normal >=60 [facility] Comment on above: Performed By: #### P OCGLUC #### [facility] [address] [address] [address] Obdulia Ng EGFR-NON AF PERUVIAN >60 Normal >=60 [facility] Comment on above: Performed By: #### P OCGLUC #### [facility] [address] [address] [address] Obdulia Ng Glucose [Mass/Vol] 172 mg/dL Critically high 74-106 [facility] Comment on above: Performed By: #### P OCGLUC #### [facility] [address] [address] [address] Obdulia Ng Potassium [Moles/Vol] 4.3 mmol/L Normal 3.5-5.1 [facility] Comment on above: Performed By: #### P OCGLUC #### [facility] [address] [address] [address] Obdulia Ng Sodium [Moles/Vol] 139 mmol/L Normal 136-145 [facility] Comment on above: Performed By: #### P OCGLUC #### [facility] [address] [address] [address] Obdulia Ng Urea nitrogen [Mass/Vol] 17.0 mg/dL Normal 7.0-18.0 [facility] Comment on above: Performed By: #### P OCGLUC #### [facility] [address] [address] [address] Obdulia Ng Urea nitrogen/Creatini ne [Mass ratio] 15.7 mg/mg Normal [facility] Comment on above: Performed By: #### P OCGLUC #### [facility] [address] [address] [address] Obdulia Ng T4on 2021 T4 [Mass/Vol] 7.50 ug/dL Normal 4.50-12.10 [facility] Comment on above: Performed By: #### T SH, T4 #### [facility] [address] [place] [address] Dr. Obdulia Ng TROPONIN, HIGH SENSITIVITYon 2021 HSTROP 15.3 pg/mL Normal 4.0-76.1 [facility] Comment on above: Result Comment: CUT- OFF POINTS HAVE BEEN ESTABLISHED BASED ON THE FOURTH UNIVERSAL DEFINITIONS OF MYOCARDIAL INFARCTION. THE UPPER REFERENCE LIMIT (URL) OF TROPONIN, DEFINED THE 99TH PERCENTILE OF cTnI DISTRIBUTION IN A REFERENCE POPULATION, HAS BEEN CONFIRMED THE DECISION THRESHOLD FOR IN DIAGNOSIS. Performed By: #### P OCGLUC #### [facility] [address] [address] [address] Obdulia Ng TSHon 2021 TSH 0.904 uIU/mL Normal 0.358-3.74 0 [facility] Comment on above: Performed By: #### T SH, T4 #### [facility] [address] [place] [address] Dr. Obdulia Ng UA RANDOM W/MICROSCOPICon BACTERIA NONE SEEN Normal NONE SEEN [facility] Comment on above: Performed By: #### T SH, T4 #### [facility] [address] [place] [address] Dr. Obdulia Ng Bilirubin Ql (U) Negative Normal NEGATIVE [facility] Comment on above: Performed By: #### T SH, T4 #### [facility] [address] [place] [address] Dr. Obdulia Ng CAST NONE SEEN Normal NONE SEEN [facility] Comment on above: Performed By: #### T SH, T4 #### [facility] [address] [place] [address] Dr. Obdulia Ng Clarity (U) CLEAR Normal CLEAR [facility] Comment on above: Performed By: #### T SH, T4 #### [facility] [address] [place] [address] Dr. Obdulia Ng Color (U) LT. YELLOW Normal YELLOW [facility] Comment on above: Performed By: #### T SH, T4 #### [facility] [address] [place] [address] Dr. Obdulia Ng Crystals LM Nom (Urine sed) NONE SEEN Normal NONE SEEN [facility] Comment on above: Performed By: #### T SH, T4 #### [facility] [address] [place] [address] Dr. Obdulia Ng Epithelial cells LM Ql (Urine sed) NONE SEEN Normal NONE SEEN /RARE [facility] Comment on above: Performed By: #### T SH, T4 #### [facility] [address] [place] [address] Dr. Obdulia Ng Glucose Ql (U) Negative Normal NEGATIVE [facility] Comment on above: Performed By: #### T SH, T4 #### [facility] [address] [place], [place] [id number] Dr. Obdulia Ng Hemoglobin Ql (U) Negative Normal NEGATIVE [facility] Comment on above: Performed By: #### T SH, T4 #### [facility] [address] [place] [address] Dr. Obdulia Ng Ketones Ql (U) Negative Normal NEGATIVE [facility] Comment on above: Performed By: #### T SH, T4 #### [facility] [address] [place] [address] Dr. Obdulia Ng LEUKOCYTES Negative Normal NEGATIVE [facility] Comment on above: Performed By: #### T SH, T4 #### [facility] [address] [place] [address] Dr. Obdulia Ng MUCOUS NONE SEEN Normal NONE SEEN [facility] Comment on above: Performed By: #### T SH, T4 #### [facility] [address] [place] [address] Dr. Obdulia Ng Nitrite Ql (U) Negative Normal NEGATIVE [facility] Comment on above: Performed By: #### T SH, T4 #### [facility] [address] [place] [address] Dr. Obdulia Ng pH (U) 6.0 [pH] Normal 5-9 [facility] Comment on above: Performed By: #### T SH, T4 #### [facility] [address] [place] [address] Dr. Obdulia Ng RBC NONE SEEN Abnormal 0-2 [facility] Comment on above: Performed By: #### T SH, T4 #### [facility] [address] [place] [address] Dr. Obdulia Ng SPEC GRAVITY 1.010 Normal 1.005-<=1. 025 [facility] Comment on above: Performed By: #### T SH, T4 #### [facility] [address] [place] [address] Dr. Obdulia Ng UA PROTEIN Negative Normal NEGATIVE/ TRACE [facility] Comment on above: Performed By: #### T SH, T4 #### [facility] [address] [place] [address] Dr. Obdulia Ng Urobilinogen Qn (U) 1.0 {Cachorro'U}/dL Normal 0.2 - 1.0 [facility] Comment on above: Performed By: #### T SH, T4 #### [facility] [address] [place] [address] Dr. Obdulia Ng WBC NONE SEEN Normal NONE SEEN [facility] Comment on above: Performed By: #### T SH, T4 #### [facility] [address] [place] [address] Dr. Obdulia Ng XR CHEST 1 Von [...] BROOKS STEPHENSON Date: 2021 11:26 Normal [facility] CBC AUTO DIFFon 11-17-2021 BASO # 0.0 103/ul Normal 0.0-0.1 [facility] Comment on above: Performed By: #### P OCGLUC #### [facility] [address] [place] [address] Dr. Obdulia Ng Basophils/100 WBC (Bld) 0.3 % Normal 0.2-2.0 [facility] Comment on above: Performed By: #### P OCGLUC #### [facility] [address] [place] [address] Dr. Obdulia Ng EO # 0.0 103/ul Normal 0.0-0.7 [facility] Comment on above: Performed By: #### P OCGLUC #### [facility] [address] [place] [address] Dr. Obdulia Ng Eosinophils/100 WBC (Bld) 0.1 % Critically low 0.9-7.0 [facility] Comment on above: Performed By: #### P OCGLUC #### [facility] [address] [place] [address] Dr. Obdulia Ng Erythrocyte distribution width (RBC) [Ratio] 12.9 % Normal 11.0-15.0 [facility] Comment on above: Performed By: #### P OCGLUC #### [facility] [address] [place] [address] Dr. Obdulia Ng Hematocrit (Bld) [Volume fraction] 38.4 % Critically low 42.0-54.0 [facility] Comment on above: Performed By: #### P OCGLUC #### [facility] [address] [place] [address] Dr. Obdulia Ng Hemoglobin (Bld) [Mass/Vol] 12.7 g/dL Critically low 14.0-18.0 [facility] Comment on above: Performed By: #### P OCGLUC #### [facility] [address] [place] [address] Dr. Obdulia Ng IG # 0.03 10e3/ul Normal 0.00-0.03 [facility] Comment on above: Performed By: #### P OCGLUC #### [facility] [address] [place] [address] Dr. Obdulia Ng IG % 0.3 % Normal 0.0-0.5 [facility] Comment on above: Performed By: #### P OCGLUC #### [facility] [address] [place] [address] Dr. Obdulia Ng LYMPH # 0.8 103/ul Critically low 1.2-3.8 [facility] Comment on above: Performed By: #### P OCGLUC #### [facility] [address] [place] [address] Dr. Obdulia Ng Lymphocytes/100 WBC (Bld) 7.2 % Critically low 20.5-60.0 [facility] Comment on above: Performed By: #### P OCGLUC #### [facility] [address] [place] [address] Dr. Obdulia Ng MANUAL DIFF REQ NO Normal [facility] Comment on above: Performed By: #### P OCGLUC #### [facility] [address] [place] [address] Dr. Obdulia Ng MCH (RBC) [Entitic mass] 32.2 pg Normal 25.9-34.0 [facility] Comment on above: Performed By: #### P OCGLUC #### [facility] [address] [place] [address] Dr. Obdulia Ng MCHC (RBC) [Mass/Vol] 33.1 g/dL Normal 29.9-35.2 [facility] Comment on above: Performed By: #### P OCGLUC #### [facility] [address] [place] [address] Dr. Obdulia Ng MCV (RBC) [Entitic vol] 97.5 fL Critically high 80.0-94.0 [facility] Comment on above: Performed By: #### P OCGLUC #### [facility] [address] [place] [address] Dr. Obdulia Ng MONO # 1.0 103/ul Critically high 0.3-0.8 [facility] Comment on above: Performed By: #### P OCGLUC #### [facility] [address] [place] [address] Dr. Obdulia Ng Monocytes/100 WBC (Bld) 9.9 % Normal 1.7-12.0 [facility] Comment on above: Performed By: #### P OCGLUC #### [facility] [address] [place] [address] Dr. Obdulia Ng NEUT # 8.6 103/ul Critically high 1.4-6.5 [facility] Comment on above: Performed By: #### P OCGLUC #### [facility] [address] [place] [address] Dr. Obdulia Ng Neutrophils/100 WBC (Bld) 82.2 % Critically high 43.0-75.0 [facility] Comment on above: Performed By: #### P OCGLUC #### [facility] [address] [place] [address] Dr. Obdulia Ng Platelet mean volume (Bld) [Entitic vol] 10.3 fL Normal 9.5-13.5 [facility] Comment on above: Performed By: #### P OCGLUC #### [facility] [address] [place] [address] Dr. Obdulia Ng PLT 202 103/ul Normal 150-450 [facility] Comment on above: Performed By: #### P OCGLUC #### [facility] [address] [address] [address] Obdulia Ng RBC 3.94 106/ul Critically low 4.70-6.10 [facility] Comment on above: Performed By: #### P OCGLUC #### [facility] [address] [place] [address] Dr. Obdulia Ng WBC 10.4 103/ul Normal 4.0-11.0 [facility] Comment on above: Performed By: #### P OCGLUC #### [facility] [address] [place] [address] Dr. Obdulia Ng PROF CHEM 8 (BAS METB)on Anion gap [Moles/Vol] 12.9 mmol/L Normal [facility] Comment on above: Performed By: #### T SH, T4 #### [facility] [address] [place] [address] Dr. Obdulia Ng Calcium [Mass/Vol] 8.6 mg/dL Normal 8.5-10.1 [facility] Comment on above: Performed By: #### T SH, T4 #### [facility] [address] [place] [address] Dr. Obdulia Ng Chloride [Moles/Vol] 102 mmol/L Normal 98-107 [facility] Comment on above: Performed By: #### T SH, T4 #### [facility] [address] [place] [address] Dr. Obdulia Ng CO2 [Moles/Vol] 25.8 mmol/L Normal 21.0-32.0 [facility] Comment on above: Performed By: #### T SH, T4 #### [facility] [address] [place] [address] Dr. Obdulia Ng Creatinine [Mass/Vol] 1.03 mg/dL Normal 0.70-1.30 [facility] Comment on above: Performed By: #### T SH, T4 #### [facility] [address] [address] [address] Obdulia Ng EGFR-AF PERUVIAN >60 Normal >=60 [facility] Comment on above: Performed By: #### T SH, T4 #### [facility] [address] [address] [address] Obdulia Ng EGFR-NON AF PERUVIAN >60 Normal >=60 [facility] Comment on above: Performed By: #### T SH, T4 #### [facility] [address] [place] [address] Dr. Obdulia Ng Glucose [Mass/Vol] 164 mg/dL Critically high 74-106 [facility] Comment on above: Performed By: #### T SH, T4 #### [facility] [address] [place] [address] Dr. Obdulia Ng Potassium [Moles/Vol] 3.7 mmol/L Normal 3.5-5.1 [facility] Comment on above: Performed By: #### T SH, T4 #### [facility] [address] [place] [address] Dr. Obdulia Ng Sodium [Moles/Vol] 137 mmol/L Normal 136-145 [facility] Comment on above: Performed By: #### T SH, T4 #### [facility] [address] [place] [address] Dr. Obdulia Ng Urea nitrogen [Mass/Vol] 15.0 mg/dL Normal 7.0-18.0 [facility] Comment on above: Performed By: #### T SH, T4 #### [facility] [address] [place] [address] Dr. Obdulia Ng Urea nitrogen/Creatini ne [Mass ratio] 14.6 mg/mg Normal [facility] Comment on above: Performed By: #### T SH, T4 #### [facility] [address] [place] [address] Dr. Obdulia Ng TROPONIN, HIGH SENSITIVITYon 11-17-2021 HSTROP 16.2 pg/mL Normal 4.0-76.1 [facility] Comment on above: Result Comment: CUT- OFF POINTS HAVE BEEN ESTABLISHED BASED ON THE FOURTH UNIVERSAL DEFINITIONS OF MYOCARDIAL INFARCTION. THE UPPER REFERENCE LIMIT (URL) OF TROPONIN, DEFINED THE 99TH PERCENTILE OF cTnI DISTRIBUTION IN A REFERENCE POPULATION, HAS BEEN CONFIRMED THE DECISION THRESHOLD FOR IN DIAGNOSIS. Performed By: #### T , T4 #### [facility] [address] [address] [address] Obdulia Ng XR CHEST 1 Von [...] MONTES DE OCA Date: 2021-11-17 09:11 Normal [facility] Discharge Summaryon 02-16-20 Discharge Summary MR#: [id number] [facility] Name: Elvira Bergman Admitted: 02/11/2017 Discharged: [...] acute ST-elevationMI. He was flown in from [facility] for emergency cath. His LADwas found to [...] Dict: 02/14/2017/03:49 P/Xin Hernandez Trans: 02/14/2017 10:56 P/[id number]: Bridget Farley M.D. [address] [facility] [id number] Normal [facility] BNP (B-TYPE NATRIURETIC PEPT LEANDER)on 02-12-2017 BNP 211 pg/mL High 0-100 [facility] Comment on above: Order Comment: No: D o not add to previous draw Result Comment: Give n the appropriate clinical setting a BNP result of >100 pg/mLindicates congestive heart failure. Performed By: #### [id number], [id number] ####[facility] [place] [address], [facility] CBC W/DIFFon 02-12-2017 Basophils Auto #/vol (Bld) 1.2 % Normal 0.0-2.0 [facility] Comment on above: Order Comment: No: D o not add to previous draw Performed By: #### 5 0103 ####[facility] [place] [address], [facility] Eosinophils/100 leukocytes 0.3 % Normal 0.0-5.0 [facility] Comment on above: Order Comment: No: D o not add to previous draw Performed By: #### 5 0103 ####[facility] Erythrocyte distribution width Auto Ratio (RBC) 12.9 % Normal 11.5-16.9 [facility] Comment on above: Order Comment: No: D o not add to previous draw Performed By: #### 5 0103 ####[facility] Erythrocytes (RBC) 3.94 mill/mm3 Low 4.30-5.90 [facility] Comment on above: Order Comment: No: D o not add to previous draw Performed By: #### 5 0103 ####[facility] Hematocrit (HCT) 37.7 % Low 39.0-55.0 [facility] Comment on above: Order Comment: No: D o not add to previous draw Performed By: #### 5 0103 ####[facility] [place] [address], [facility] Hemoglobin mass conc (Bld) 12.9 g/dL Low 13.9-16.3 [facility] Comment on above: Order Comment: No: D o not add to previous draw Performed By: #### 5 0103 ####[facility] [place] [address], [facility] Lymphocytes/100 leukocytes 15.3 % Low 20.0-40.0 [facility] Comment on above: Order Comment: No: D o not add to previous draw Performed By: #### 5 0103 ####[facility] MCH 32.6 pg High 24.0-32.0 [facility] Comment on above: Order Comment: No: D o not add to previous draw Performed By: #### 5 0103 ####[facility] MCHC mass conc (RBC) 34.1 g/dL Normal 32.0-36.0 [facility] Comment on above: Order Comment: No: D o not add to previous draw Performed By: #### 5 0103 ####[facility] [facility].[address] MCV 95.7 fL Normal 80.0-100.0 [facility] Comment on above: Order Comment: No: D o not add to previous draw Performed By: #### 5 0103 ####[facility] METHOD Normal RBC Morphology Normal [facility] Comment on above: Order Comment: No: D o not add to previous draw Performed By: #### 5 0103 ####[facility] MONOS 12.2 % High 2-8 [facility] Comment on above: Order Comment: No: D o not add to previous draw Performed By: #### 5 0103 ####[facility] Neutrophils/100 leukocytes 71.0 % High 50-70 [facility] Comment on above: Order Comment: No: D o not add to previous draw Performed By: #### 5 0103 ####[facility] [place] [address], [facility] PLAT CNT 276 Thou/mm3 Normal 100-400 [facility] Comment on above: Order Comment: No: D o not add to previous draw Performed By: #### 5 0103 ####[facility] WBC (Leukocytes) 9.6 Thou/mm3 Normal 4.0-10.0 [facility] Comment on above: Order Comment: No: D o not add to previous draw Performed By: #### 5 0103 ####[facility] [facility] COMP METABOLIC PANELon 02-12 Alanine aminotransferase (ALT) 11 U/L Normal 7-52 [facility] Comment on above: Order Comment: No: D o not add to previous draw Performed By: #### 4 1000, 25649, 95099, 32415, 37805, 80962 ####[facility] [facility] Albumin 3.2 g/dL Low 3.5-5.7 [facility] Comment on above: Order Comment: No: D o not add to previous draw Performed By: #### 4 1000, 55562, 77157, 21449, 15771, 06172 ####[facility] [facility] ALKALINE PHOSPH 49 IU/L Normal 34-104 [facility] Comment on above: Order Comment: No: D o not add to previous draw Performed By: #### 4 1000, 09118, 30669, 36575, 31815, 29312 ####[facility] Aspartate aminotransferase (AST) 9 U/L Low 13-39 [facility] Comment on above: Order Comment: No: D o not add to previous draw Performed By: #### 4 1000, 96131, 28663, 69434, 43416, 13952 ####[facility] [place] [address], [facility] Bilirubin (total) 0.6 mg/dL Normal 0.3-1.0 [facility] Comment on above: Order Comment: No: D o not add to previous draw Performed By: #### 4 1000, 21414, 63699, 28261, 22962, 51580 ####[facility] [place] [address], [facility] Calcium 8.5 mg/dL Low 8.6-10.3 [facility] Comment on above: Order Comment: No: D o not add to previous draw Performed By: #### 4 1000, 98183, 26127, 89185, 51878, 78695 ####[facility] [place] [address], [facility] Chloride 106 mmol/L Normal 98-107 [facility] Comment on above: Order Comment: No: D o not add to previous draw Performed By: #### 4 1000, 05824, 46143, 05452, 82454, 29031 ####[facility] [place] [address], [facility] CO2 24 mmol/L Normal 21-31 [facility] Comment on above: Order Comment: No: D o not add to previous draw Performed By: #### 4 1000, 52745, 50018, 80063, 05684, 53155 ####[facility] [place] [address], [facility] Creatinine 0.98 mg/dL Normal 0.70-1.30 [facility] Comment on above: Order Comment: No: D o not add to previous draw Performed By: #### 4 1000, 00054, 74361, 89660, 82295, 45272 ####[facility] [place] [address], [facility] eGFR (black) mL/min/{1.73_m2} Normal >60 [facility] Comment on above: Order Comment: No: D o not add to previous draw Result Comment: Calc ulation may not be valid for patients over 70 years Performed By: #### 4 1000, 27426, 12119, 07264, 34622, 27682 ####[facility] [place] [address], [facility] eGFR (non-black) mL/min/{1.73_m2} Normal >60 [facility] Comment on above: Order Comment: No: D o not add to previous draw Result Comment: Calc ulation may not be valid for patients over 70 years Performed By: #### 4 1000, 40427, 44642, 59639, 41749, 73232 ####[facility] [place] [address], [facility] Glucose mass conc 180 mg/dL High 70-100 [facility] Comment on above: Order Comment: No: D o not add to previous draw Performed By: #### 4 1000, 89629, 67676, 12291, 86549, 05541 ####[facility] [place] [address], [facility] Potassium molar conc 4.2 mmol/L Normal 3.5-5.1 [facility] Comment on above: Order Comment: No: D o not add to previous draw Performed By: #### 4 1000, 35390, 72516, 10596, 26412, 60283 ####[facility] [place] [address], [facility] Protein 5.9 g/dL Low 6.0-8.3 [facility] Comment on above: Order Comment: No: D o not add to previous draw Performed By: #### 4 1000, 80652, 53823, 86070, 00866, 24850 ####[facility] [place] [address], [place] Sodium 135 mmol/L Low 136-145 [facility] Comment on above: Order Comment: No: D o not add to previous draw Performed By: #### 4 1000, 55985, 94487, 35947, 69070, 91128 ####[facility]3000 [facility].[address] Urea nitrogen 20 mg/dL Normal 7-25 [facility] Comment on above: Order Comment: No: D o not add to previous draw Performed By: #### 4 1000, 92586, 35651, 84645, 61428, 15856 ####[facility] [facility].[place], [place] [address] [place] [address] CPKon 02-12-2017 Creatine kinase (CK) 44 U/L Normal 30-223 [facility] Comment on above: Order Comment: No: D o not add to previous draw Performed By: #### 4 1000, 21063, 26751, 79057, 34098, 10302 ####[facility] [facility].[address] Cardiovascular Lab Reporton 02-12-2017 Cardiovascular Lab Report [facility] Patient Name: Elvira Bergman [facility] MR #: [id number] Physician: Marie Iraheta,Department of M.D.Medicine Service Date: 02/11/2017Division of Birthdate: 2Cardiology Room #: 3AB [id number] CardiovascularServicesUniversFred[place] [address]Phone Fax Cardiovascular Laboratory ReportIMPRESSION:1. Successful balloon angioplasty, reduction of 80% in-stent restenosis to 0 using a 3.5 x 12 Synergy stent.2. Occluded right common iliac artery.3. Patent stent in right coronary artery with mild in-stent restenosis.INDICATION:Elvira Bergman is a 76-year-old [facility], [facility] showed ST-elevation concerning for ST-elevationmyocardial infarction. Because of that, he was life flighted to [facility].PROCEDURE:1. Coronary angiography from right radial access.2. Balloon [...] This was discussed with patient and referring siding mechanic.METHODS:After risks, benefits, and alternatives were explained to the patient, hewas brought to catheterization lab suite in a fasting state. Access wasobtained. Initially we tried to obtain in the right common femoral artery,however, it was a very feeble pulse and this access was abandoned. At thispoint of time, we accessed the right radial artery and a 6-Peruvian sheathwas placed in. After that, the wire [...] time, this guide was taken outand a 6-Peruvian JL-4 guide was used to engage the [...] this point of time, we used a 6-Peruvian JR-5 toengage the right coronary ostium. This [...] This haziness is best visualized in an OMANI cranial view. It is eccentric with 80% [...] 11:49 A Marie Iraheta M.D.Date Dict: 02/11/2017/02:36 PGina Iraheta M.D.Date Trans: 02/12/2017 02:21 A/[id number]: Bridget Farley M.D. [address] [id number] Saw Nath M.D. [address] [place], [place] [id number] Normal [facility] HEMOGLOBIN A1Con 02-12-2017 Glucose mass conc 143 mg/dL High 70-126 [facility] Comment on above: Order Comment: No: D o not add to previous draw Performed By: #### 8 5499 ####[facility] [place] [address], [facility] Hemoglobin A1c/Hemoglobin.to avtar mass fraction (Bld) 6.6 % High 4.0-6.0 [facility] Comment on above: Order Comment: No: D o not add to previous draw Performed By: #### 8 5499 ####[facility] [facility] [place] [address], [facility] LIPID PROFILEon 02-12-2017 Cholesterol 107 mg/dL Low 120-200 [facility] Comment on above: Order Comment: No: D o not add to previous draw Result Comment: CHOL ESTEROL REFERENCE RANGE:20 YEARS AND OLDER CARDIOVASCULAR RISKLess than 200 mg/dl Low Wybo039 to 239 mg/dl Borderline Gjfk857 mg/dl and greater High Risk Performed By: #### 4 1000, 00337, 73721, 77348, 06900, 17612 ####[facility] [place] [address], [facility] Cholesterol to HDL Ratio 3.7 {ratio} Normal .0-4.5 [facility] Comment on above: Order Comment: No: D o not add to previous draw Performed By: #### 4 1000, 09094, 32796, 28087, 35477, 05193 ####[facility] [place] [address], [facility] HDL Cholesterol 29 mg/dL Normal 23-92 [facility] Comment on above: Order Comment: No: D o not add to previous draw Result Comment: Slig ht variation in normal range could be due to gender and/or age.HDL CHOLESTEROL REFERENCE RANGE:20 years and older Cardiovascular Risk> or =60 mg/dL [id number] TO 59 mg/dL Low Risk<40 mg/dL High Risk Performed By: #### 4 1000, 70655, 26600, 27442, 46431, 96807 ####[facility] [place] [address], [facility] LDL Cholesterol 63 mg/dL Normal 0-130 [facility] Comment on above: Order Comment: No: D o not add to previous draw Result Comment: LDL IS A CALCULATIONLDL IS ONLY VALID IF THE TRIG IS LESS THAN 400. Performed By: #### 4 1000, 85662, 50570, 05508, 39147, 83817 ####[facility] [place] [address], [facility] NON-HDL CHOLESTEROL 78 mg/dL Normal [facility] Comment on above: Order Comment: No: D o not add to previous draw Performed By: #### 4 1000, 85243, 58389, 85616, 91755, 23573 ####[facility] [place] [address], [facility] Triglyceride 75 mg/dL Normal 40-149 [facility] Comment on above: Order Comment: No: D o not add to previous draw Result Comment: TRIG LYCERIDE REFERENCE RANGE:20 YEARS AND OLDER CARDIOVASCULAR RISKLESS THAN 150 mg/dl LOW [id number] TO 199 mg/dl BORDERLINE PUCB352 mg/dl AND GREATER HIGH RISK Performed By: #### 4 1000, 30621, 51835, 89201, 20128, 11468 ####[facility] [place] [address], [facility] VLDL CHOL 15 mg/dL Normal 0-40 [facility] Comment on above: Order Comment: No: D o not add to previous draw Performed By: #### 4 1000, 91323, 46328, 96631, 57125, 63894 ####[facility] [place] [address], [facility] MAGNESIUM BLOODon 02-12-2017 Magnesium 1.7 mg/dL Low 1.9-2.7 [facility] Comment on above: Order Comment: No: D o not add to previous draw Performed By: #### 4 1000, 45825, 18210, 50270, 39203, 87648 ####[facility] [place] [address], [facility] PHOSPHORUS BLOODon 7 Phosphate 3.7 mg/dL Normal 2.5-5.0 [facility] Comment on above: Order Comment: No: D o not add to previous draw Performed By: #### 4 1000, 05952, 44607, 30890, 97117, 53475 ####[facility] [place] [address], [facility] POC GLUCOSE LABon 02-12-2017 Glucose mass conc 297 mg/dL High 70-100 [facility] Comment on above: Performed By: #### 8 5499 ####[facility] [place] [address], [facility] Glucose mass conc 184 mg/dL High 70-100 [facility] Comment on above: Performed By: #### 8 0199 ####[facility] [place], [place] [address] [place] [address] PORTABLE CHEST 1 VIEWon 01-22 PORTABLE CHEST 1 VIEW [facility] SystemDepartment of Fzyedeqbr[address] [place] [id number] Patient Name: ELVIRA BERGMAN : 1940ex: MAge: Race: WhiteMRN: [id number]. Location: [id number] Status: IVisit #: [id number] Date: 02/12/2017 6:55:00 AMCompleted Date: 02/12/2017 07:59 AMRequesting Provider: MARIA LUISA COATES Attending Provider: MABEL SÁNCHEZ V Report Copy To: Signs & Symptoms: Chest PainHistory: Patient history not availableComments: R/O CardiomegalyExam: PORTABLE CHEST 1 VIEWAccession #: [id number] PORTABLE CHEST 1 VIEW 02/12/2017 7:59 AM EDT [...] findings. Electronically signed by:Shalini Garcia. Transcribed by: [email or web address], User Resident: APOLONIA BOSTONElectronically Signed by: SHALINI GARCIA @ 02/12/2017 04:06 PMI personally read this/these film(s) with this resident Normal [facility] Comment on above: Order Comment: R/O C ardiomegaly TROPONIN-Ion 02-12-2017 Troponin I.cardiac mass conc 0.06 ng/mL High 0.00-0.04 [facility] Comment on above: Result Comment: REFE RENCE RANGES: 0.00 - 0.04 ng/ml NORMAL 0.05 - 0.50 ng/ml INDETERMINATE > 0.50 ng/ml CONSISTENT WITH AN M.I. Performed By: #### 4 1000, 91508, 74975, 91484, 96717, 20783 ####[facility] [facility].[address] POC GLUCOSE LABon 02-11-2017 Glucose mass conc 224 mg/dL High 70-100 [facility] Comment on above: Performed By: #### 8 5499 ####[facility] [facility] [place] [address], [facility] Glucose mass conc 158 mg/dL High 70-100 [facility] Comment on above: Performed By: #### 8 5499 ####[facility] [facility] [place] [address], [facility] Vital Signs Date Time Vital Sign Value Performing Clinician Zena cedillo 07-16-2024 09:41-0500 Body height 182.9 cm Pacc 1 Work Phone: [facility] 07-16-2024 09:41-0500 Body mass index (BMI) [Ratio] 24.52 kg/m2 Pacc 1 Work Phone: [facility] 07-16-2024 09:41-0500 Body temperature 97.59 [degF] Pacc 1 Work Phone: [facility] 07-16-2024 09:41-0500 Body weight 82 kg Pacc 1 Work Phone: [facility] 07-16-2024 09:41-0500 Diastolic blood pressure 64 mm[Hg] Pacc 1 Work Phone: [facility] 07-16-2024 09:41-0500 Heart rate 67 /min Pacc 1 Work Phone: [facility] 07-16-2024 09:41-0500 Respiratory rate 18 /min Pacc 1 Work Phone: [facility] 07-16-2024 09:41-0500 SaO2% (BldA) [Mass fraction] 98 % Pacc 1 Work Phone: [facility] 07-16-2024 09:41-0500 Systolic blood pressure 115 mm[Hg] Pacc 1 Work Phone: [facility] 03-14-2024 07:09-0400 Body height 182.9 cm Pacc 1 Work Phone: [facility] 03-14-2024 07:09-0400 Body mass index (BMI) [Ratio] 24.52 kg/m2 Pacc 1 Work Phone: [facility] 03-14-2024 07:09-0400 Body temperature 97.5 [degF] Pacc 1 Work Phone: [facility] 03-14-2024 07:09-0400 Body weight 82 kg Pacc 1 Work Phone: [facility] 03-14-2024 07:09-0400 Diastolic blood pressure 58 mm[Hg] Pacc 1 Work Phone: [facility] 03-14-2024 07:09-0400 Heart rate 64 /min Pacc 1 Work Phone: [facility] 03-14-2024 07:09-0400 Respiratory rate 16 /min Pacc 1 Work Phone: [facility] 03-14-2024 07:09-0400 SaO2% (BldA) [Mass fraction] 98 % Pac 1 Work Phone: [facility] 03-14-2024 07:090400 Systolic blood pressure 93 mm[Hg] Pac 1 Work Phone: [facility] Encounters Encounter Date Encounter Type Care Provider Facility Start: 12-21-2024 End: 12-21-2024 Patient encounter procedure Arash Post MD Work Phone: Ophthalmology Comment on above: 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) Start: 12-21-2024 End: 12-21-2024 ambulatory ARASH POST Facility:[facility] Start: 10-31-2024 End: 10-31-2024 Patient encounter procedure Arash Post MD Work Phone: Ophthalmology Comment on above: 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) (Primary Dx) Start: 10-31-2024 End: 10-31-2024 ambulatory ARASH SEJAL Facility:[facility] Start: 08-22-2024 End: 08-22-2024 ambulatory ARASH SEJAL Facility:[facility] Start: 08-22-2024 End: 08-22-2024 Patient encounter procedure Elisa Chi OD Work Phone: Ophthalmology Comment on above: Pseudophakia of both eyes (Primary Dx); Exudative age-related macular degeneration of left eye with active choroidal neovascularization (HCC); Nonexudative age-related macular degeneration, right eye, intermediate dry stage; Strabismus 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) (Primary Dx) Start: 08-14-2024 End: 08-14-2024 ambulatory RAMIN SPRAGUE Facility:[facility] Start: 08-14-2024 End: 08-14-2024 Patient encounter procedure Ramin Sprague MD Work Phone: Ophthalmology Comment on above: Pseudophakia of both eyes (Primary Dx); Exudative age-related macular degeneration of left eye with active choroidal neovascularization (HCC); Nonexudative age-related macular degeneration, right eye, intermediate dry stage; Strabismus Start: 08-13-2024 End: 08-13-2024 ambulatory RAMIN SPRAGUE Facility:[facility] Start: 07-25-2024 End: 07-25-2024 Patient encounter procedure Arash Post MD Work Phone: Ophthalmology Comment on above: 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) (Primary Dx) Start: 07-25-2024 End: 07-25-2024 [facility] Facility:[facility] Start: 07-25-2024 Encounter for other preprocedural examination RAMIN SPRAGUE [facility] Start: 07-18-2024 End: 07-18-2024 Telephone encounter [facility] 2 Work Phone: Pre Anesthesia Comment on above: Results Start: 07-16-2024 End: 07-16-2024 Patient encounter procedure Eye Measurements Work Phone: Ophthalmology Comment on above: 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 Start: 07-16-2024 End: 07-16-2024 Admission to establishment [facility] [place] [facility] Work Phone: Pre Anesthesia Start: 07-16-2024 End: 07-16-2024 [facility] Facility:[facility] Start: 07-16-2024 End: 07-16-2024 Anesthesia consultation [facility] [place] 1 Work Phone: Pre Anesthesia Comment on above: Pre-op examination ( Primary Dx); Abnormal finding of blood chemistry, unspecified; Benign prostatic hyperplasia without urinary obstruction; Type 2 diabetes mellitus without complication, unspecified whether prison insulin use (HCC); Persistent atrial fibrillation (HCC); Atherosclerosis of coronary artery without angina pectoris, unspecified vessel or lesion type, unspecified whether [place] or transplanted heart; Essential hypertension; Pure hypercholesterolemia; Chronic systolic heart failure (HCC) Start: 07-16-2024 End: 07-16-2024 Preprocedural examination done [facility] [place] [facility] Work Phone: [facility] Work Phone: Start: 06-28-2024 End: 06-28-2024 ambulatory BRIDGET FARLEY Facility:[facility] Start: 06-28-2024 End: 06-28-2024 Patient encounter procedure [...] Start: 06-20-2024 End: 06-20-2024 ambulatory ARASH POST Facility:[facility] Start: 06-20-2024 End: 06-20-2024 Patient encounter procedure Arash Post MD Work Phone: Ophthalmology Comment on above: 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) Start: 05-03-2024 End: 05-04-2024 Telephone encounter Ramin Sprague MD Work Phone: Ophthalmology Comment on above: Medication Problem Refill Request Start: 04-25-2024 End: 04-25-2024 ambulatory ARASH POST Facility:[facility] Start: 04-25-2024 End: 04-25-2024 Patient encounter procedure Arash Post MD Work Phone: Ophthalmology Comment on above: 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) Start: 04-12-2024 End: 04-12-2024 ambulatory RAMIN SPRAGUE Facility:[facility] Start: 04-12-2024 End: 04-12-2024 Patient encounter procedure Ramin Sprague MD Work Phone: Ophthalmology Comment on above: Pseudophakia, right eye (Primary Dx); Combined form of age-related cataract, left eye Start: 04-11-2024 End: 04-11-2024 ambulatory RAMIN SPRAGUE Facility:[facility] Start: 03-14-2024 End: 03-14-2024 Patient encounter procedure Arash Post MD Work Phone: Ophthalmology Comment on above: 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) (Primary Dx) Nuclear senile catar act of right eye Start: 03-14-2024 End: 03-14-2024 Admission to establishment [facility] [place] 1 Work Phone: Pre Anesthesia Start: 03-14-2024 End: 03-14-2024 ambulatory ARASH POST Facility:[facility] Start: 03-14-2024 End: 03-14-2024 Anesthesia consultation [facility] [place] 1 Work Phone: Pre Anesthesia Comment on above: Pre-op evaluation (P rimary Dx); Benign prostatic hyperplasia without urinary obstruction; Type 2 diabetes mellitus without complication, unspecified whether prison insulin use (HCC); Pure hypercholesterolemia; Essential hypertension; Persistent atrial fibrillation (HCC); Atherosclerosis of coronary artery without angina pectoris, unspecified vessel or lesion type, unspecified whether [place] or transplanted heart Start: 03-14-2024 Encounter for other preprocedural examination RAMIN SPRAGUE [facility] Start: 03-14-2024 End: 03-14-2024 Preprocedural examination done [facility] [place] 1 Work Phone: [facility] Work Phone: Start: 03-02-2024 End: 03-04-2024 ambulatory LISSETH KENNEY [facility] Start: 02-23-2024 End: 02-23-2024 ambulatory RAMIN SPRAGUE Facility:[facility] Start: 02-23-2024 End: 02-23-2024 Patient encounter procedure [...] Start: 02-15-2024 End: 02-15-2024 ambulatory ARASH POST Facility:[facility] Start: 02-15-2024 End: 02-15-2024 Patient encounter procedure Arash Post MD Work Phone: Ophthalmology Comment on above: 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) (Primary Dx) Start: 01-30-2024 End: 02-01-2024 Subsequent hospital visit by physician [facility] Comment on above: Traumatic closed fra cture of C2 vertebra with minimal displacement, initial encounter (HCC) Start: 10-19-2023 End: 10-21-2023 ambulatory LISSETH KENNEY [facility] Start: 09-06-2023 End: 09-08-2023 ambulatory ELLIOTMICHELLE HANNONBRITTBERNA [facility] Start: 09-05-2023 End: 09-07-[facility] Start: 07-19-2023 End: 07-29-2023 Evaluation and management of inpatient PRERNA PHILLIP [facility] Start: 07-12-2023 End: 07-19-2023 Evaluation and management of inpatient ALISON MAE [facility] Start: 07-11-2023 End: 07-12-2023 Emergency department patient visit Jasiel Franks Facility:[facility] Start: 09-20-2022 End: 10-20-2022 ambulatory SHAIKH Kirt MALDONADO Facility:[facility] Start: 09-08-2022 End: 09-09-[address] BRIDGET FARLEY . Facility:[facility] Start: 09-07-2022 End: 09-07-2022 ambulatory COLTON DOWLING . Facility:H1 Start: 08-23-2022 End: 09-17-2022 ambulatory SHAIKH Kirt MALDONADO Facility:H1 Start: 07-21-2022 End: 08-20-2022 ambulatory SHAIKH Kirt MALDONADO Facility:H1 Start: 07-06-2022 End: 07-07-[address] BRIDGET FARLEY . Facility:[facility]1 Start: 06-23-2022 End: 03-01-2023 ambulatory SHAIKH Kirt MALDONADO Facility:H1 Start: 05-24-2022 End: 06-23-2022 ambulatory SHAIKH Kirt MCKEONRonnie Facility:H1 Start: 04-22-2022 End: 05-23-2022 ambulatory SHAIKH Kirt MCKEONRonnie Facility:H1 Start: 04-19-2022 End: 04-21-[address] BRIDGET FARLEY . Facility:[facility]1 Start: 04-03-2022 End: 04-03-[address] BRIDGET FARLEY . Facility:[facility]1 Start: 03-23-2022 End: 04-21-2022 ambulatory SHAIKH Kirt MCKEONRonnie Facility:H1 Start: 03-12-2022 End: 03-12-2022 ambulatory [facility] Start: 02-22-2022 End: 03-22-2022 ambulatory SHAIKH Kirt MCKEONRonnie Facility:H1 Start: 02-19-2022 ambulatory [facility] Start: 02-18-2022 End: 02-18-2022 Evaluation and management of inpatient SHAIKH Kirt MALDONADO Facility:H1 Start: 02-02-2022 End: 02-20-2022 ambulatory SHAIKH Kirt MALDONADO Facility:H1 Start: 2021 End: 12-24-[address] BRIDGET FARLEY . Facility:[facility]1 Start: 11-17-2021 End: 11-17-[address] BRIDGET FARLEY . Facility:[facility]1 Start: 05-01-2019 End: 05-02-2019 ambulatory Christie DONALD Facility:CD:[id number] 1 5 Start: 02-11-2017 End: 02-12-2017 Evaluation and management of inpatient PROVIDER UNKNOWN Facility:[facility] Procedures Date Procedure Procedure Detail Performing Clinician Start: 12-21-2024 Computerized ophthal rebecca imaging retina Arash Post MD Work Phone: Start: 10-31-2024 Computerized ophthal rebecca imaging retina Arash Post MD Work Phone: Start: 10-31-2024 Intravitreal njx pharmacologic agt spx Arash Post MD Work Phone: Start: 08-22-2024 Intravitreal njx pharmacologic agt spx Arash Post MD Work Phone: Start: 08-22-2024 Computerized ophthal rebecca imaging retina Arash Post MD Work Phone: Start: 07-25-2024 Computerized ophthal rebecca imaging retina [...] Start: 04-25-2024 Computerized ophthal rebecca imaging retina Arash Post MD Work Phone: Start: 04-25-2024 Intravitreal [...] 3 views Lisseth BELTRAN Work Phone: Start: 02-11-2017 DILATION OF 1 COR AR T WITH DRUG-ELUT INTRA, PERC APPROACH MARIE IRAHETA Start: 02-11-2017 FLUOROSCOPY OF AORTA , BI LE ART USING OTH CONTRAST MARIE IRAHETA Plan of Treatment Date Care Activity Detail Author Start: 07-11-2033 DTaP/Tdap/Td vaccine (2 - Td or Tdap) DTaP/Tdap/Td vaccine (2 - Td or Tdap) [facility] Start: 07-11-2033 Urine microalbumin profile DTaP,Tdap,Td Vaccine (2 - Td or Tdap) [facility] Start: 07-26-2026 Diabetes Screening Diabetes Screening [facility] Start: 12-21-2025 Glaucoma screening Dilated Retinal Exam [facility] Start: 11-15-2025 End: 04-24-2026 OCT MACULA CIRRUS OU (BOTH EYES) OCT MACULA CIRRUS OU (BOTH EYES) [facility] Imaging Routine Exudative age-related macular degeneration of left eye with active choroidal neovascularization (HCC) Expected: 11/15/2025, Expires: 04/24/2026 [facility] Work Phone: Comment on above: Expected: 11/15/2025, Expires: Start: 09-06-2025 End: 02-13-2026 OCT MACULA CIRRUS OU (BOTH EYES) OCT MACULA CIRRUS OU (BOTH EYES) [facility] Imaging Routine Exudative age-related macular degeneration of left eye with active choroidal neovascularization (HCC) Expected: 09/06/2025, Expires: 02/13/2026 [facility] Work Phone: Comment on above: Expected: 09/06/2025, Expires: Start: 07-25-2025 Glaucoma screening Dilated Retinal Exam [facility] Start: 07-05-2025 End: 12-12-2025 OCT MACULA CIRRUS OU (BOTH EYES) OCT MACULA CIRRUS OU (BOTH EYES) [facility] Imaging Routine Exudative age-related macular degeneration of left eye with active choroidal neovascularization (HCC) Expected: 07/05/2025, Expires: 12/12/2025 [facility] Work Phone: Comment on above: Expected: 07/05/2025, Expires: Start: 06-28-2025 End: 12-20-2025 ASCAN ONLY - DIAGNOSTIC OS (LEFT EYE) ASCAN ONLY - DIAGNOSTIC OS (LEFT EYE) [facility] Imaging Routine Nuclear senile cataract of left eye Expected: 06/28/2025, Expires: 12/20/2025 [facility] Comment on above: Expected: 06/28/2025, Expires: Start: 06-28-2025 Glaucoma screening Dilated Retinal Exam [facility] Start: 06-28-2025 End: 12-20-2025 IOL BIOMETRY W/ IOL CALC OS (LEFT EYE) IOL BIOMETRY W/ IOL CALC OS (LEFT EYE) [facility] Imaging Routine Nuclear senile cataract of left eye Expected: 06/28/2025, Expires: 12/20/2025 [facility] Comment on above: Expected: 06/28/2025, Expires: Start: 05-10-2025 End: 10-17-2025 OCT MACULA CIRRUS OU (BOTH EYES) OCT MACULA CIRRUS OU (BOTH EYES) [facility] Imaging Routine Exudative age-related macular degeneration of left eye with active choroidal neovascularization (HCC) Expected: 05/10/2025, Expires: 10/17/2025 [facility] Work Phone: Comment on above: Expected: 05/10/2025, Expires: Start: 03-29-2025 End: 09-05-2025 OCT MACULA CIRRUS OU (BOTH EYES) OCT MACULA CIRRUS OU (BOTH EYES) [facility] Imaging Routine Exudative age-related macular degeneration of left eye with active choroidal neovascularization (HCC) Expected: 03/29/2025, Expires: 09/05/2025 [facility] Work Phone: Comment on above: Expected: 03/29/2025, Expires: Start: 03-01-2025 End: 08-08-2025 OCT MACULA CIRRUS OU (BOTH EYES) OCT MACULA CIRRUS OU (BOTH EYES) [facility] Imaging Routine Exudative age-related macular degeneration of left eye with active choroidal neovascularization (HCC) Expected: 03/01/2025, Expires: 08/08/2025 [facility] Work Phone: Comment on above: Expected: 03/01/2025, Expires: Start: 02-22-2025 End: 08-16-2025 ASCAN ONLY - DIAGNOSTIC OD (RIGHT EYE) ASCAN ONLY - DIAGNOSTIC OD (RIGHT EYE) [facility] Imaging Routine Nuclear senile cataract of right eye Expected: 02/22/2025, Expires: 08/16/2025 [facility] Comment on above: Expected: 02/22/2025, Expires: Start: 02-22-2025 Glaucoma screening Dilated Retinal Exam [facility] Start: 02-22-2025 End: 08-16-2025 IOL BIOMETRY W/ IOL CALC OD (RIGHT EYE) IOL BIOMETRY W/ IOL CALC OD (RIGHT EYE) [facility] Imaging Routine Nuclear senile cataract of right eye Expected: 02/22/2025, Expires: 08/16/2025 [facility] Comment on above: Expected: 02/22/2025, Expires: Start: 01-23-2025 End: 01-23-2025 Patient encounter procedure Ophthalmolog y Comment on above: Return in about 12 weeks (around ). *12 W, DFE/OCT, EYLE A OS Start: 01-21-2025 Influenza vaccination [facility] Start: 01-13-2025 Hemoglobin A1c measurement HbA1C [facility] Start: 10-31-2024 End: 10-31-2024 Patient encounter procedure 10/31/2024 2:00 PM EDT Office Visit [facility] Ophthalmology [address] [place] [address] Arash Post MD [address] [place] [address] *10 W DTI EYLEA OS Ophthalmology Comment on above: *10 W DTI EYLEA OS Start: 08-22-2024 End: 08-22-2024 Patient encounter procedure Ophthalmolog y Comment on above: *10 W DTI EYLEA OS 1 WEEK- CATARACT HAO CARLOS LABERTO LEFT EYE ONLY - MELVIN Start: 08-14-2024 End: 08-14-2024 Patient encounter procedure 08/14/2024 10:15 AM EDT Office Visit [facility] Ophthalmology [address] [place] [address] Ramin Sprague MD [address] [place] [address] 1 DAY- CATARACT SURGERY LEFT EYE ONLY - MELVIN Ophthalmology Comment on above: 1 DAY- CATARACT SURGERY LEFT EYE ONLY - MELVIN Start: 08-13-2024 End: 08-13-2024 Admission to same day surgery center 08/13/2024 9:45 AM EDT - 08/13/2024 10:20 AM EDT Surgery Ambulatory Surgery [address] [place] [address] Ramin Sprague MD [address] [place] [address] PHACOEMULSIFICATION CATARACT IMPLANT INTRAOCULAR LENS W/O ENDOSCOPIC CYCLOPHOTOCOAGULATION Ambulatory Surgery Comment on above: PHACOEMULSIFICATION CATARACT IMPLANT INT RAOCULAR LENS W/O ENDOSCOPIC CYCLOPHOTOCOAGULATION Start: 08-13-2024 End: 08-13-2024 Oph bmtry prtl coher intrfrmtry io lens pwr ger OPHTHALMIC BIOMETRY BY PARTIAL COHERENCE INTERFEROMETRY W/INTRAOCULAR LENS POWER CALCULATION Nuclear senile cataract of left eye 08/13/2024 9:45 AM EDT MARIA ELENA KIGN Start: 08-13-2024 Subsequent hospital visit by physician 08/13/2024 9:45 AM EDT Hospital Encounter Ambulatory Surgery [address] [facility] [place] [address] Ramin Sprague MD [address] [facility] [place] [address] Nuclear senile cataract of left eye [H25.12] Ambulatory Surgery Comment on above: Nuclear senile cataract of left eye [H25 .12] Start: 08-13-2024 End: 08-13-2024 Xcapsl ctrc rmvl insj io lens prosth w/o ecp PHACOEMULSIFICATION CATARACT IMPLANT INTRAOCULAR LENS W/O ENDOSCOPIC CYCLOPHOTOCOAGULATION Nuclear senile cataract of left eye 08/13/2024 9:45 AM EDT [facility] Start: 07-16-2024 End: 10-15-2024 Basic metabolic 2000 panel - Serum or Plasma [facility] Comment on above: Expected: 07/16/2024, Expires: Start: 07-16-2024 End: 10-15-2024 Hemoglobin A1c in Blood [facility] Work Phone: Comment on above: Expected: 07/16/2024, Expires: Start: 07-16-2024 End: 07-16-2024 Patient encounter procedure 07/16/2024 11:00 AM EST Office Visit [facility] Ophthalmology [address] [place] [address] CATARACT SURGERY LEFT EYE ONLY - MELVIN Ophthalmology Comment on above: CATARACT SURGERY LEFT EYE ONLY - MELVIN Start: 07-16-2024 End: 07-16-2024 Admission to same day surgery center 07/16/2024 10:20 AM EST PAT Pre Anesthesia [address] [place] [address] 1, [facility] [address] [place] [address] CATARACT SURGERY LEFT EYE ONLY - MELVIN Pre Anesthesia Comment on above: CATARACT SURGERY LEFT EYE ONLY - MELVIN Start: 06-28-2024 End: 06-28-2024 Patient encounter procedure Ophthalmolog y Comment on above: OS only CAT Eval CAT EVAL OS Start: 06-20-2024 End: 06-20-2024 Patient encounter procedure 06/20/2024 9:45 AM EST Office Visit [facility] Ophthalmology [address] [place] [address] Arash Post MD [address] [place] [address] *8 W DTI EYLEA OS Ophthalmology Comment on above: *8 W DTI EYLEA OS Start: 05-23-2024 Advance Directive Discussion Advance Directive Discussion [facility] Start: 04-25-2024 End: 04-25-2024 Patient encounter procedure Ophthalmolog y Comment on above: Return in about 6 weeks (around ).DTI Eylea left eye *6 W, DTI EYLEA OS Start: 04-11-2024 End: 04-11-2024 Admission to same day surgery center 04/11/2024 12:20 PM EST - 04/11/2024 12:55 PM EST Surgery Ambulatory Surgery [address] [place] [address] Ramin Sprague MD [address] [facility] [place] [address] PHACOEMULSIFICATION CATARACT IMPLANT INTRAOCULAR LENS W/O ENDOSCOPIC CYCLOPHOTOCOAGULATION Ambulatory Surgery Comment on above: PHACOEMULSIFICATION CATARACT IMPLANT INT RAOCULAR LENS W/O ENDOSCOPIC CYCLOPHOTOCOAGULATION Start: 04-11-2024 End: 04-11-2024 Oph bmtry prtl coher intrfrmtry io lens pwr ger OPHTHALMIC BIOMETRY BY PARTIAL COHERENCE INTERFEROMETRY W/INTRAOCULAR LENS POWER CALCULATION Nuclear senile cataract of right eye 04/11/2024 12:20 PM EST ZACHARY KING Start: 04-11-2024 Subsequent hospital visit by physician 04/11/2024 12:20 PM EST Hospital Encounter Ambulatory Surgery [address] [facility] [place] [address] Ramin Sprague MD [address] [facility] [place] [address] Nuclear senile cataract of right eye [H25.11] Ambulatory Surgery Comment on above: Nuclear senile cataract of right eye [H2 5.11] Start: 04-11-2024 End: 04-11-2024 Xcapsl ctrc rmvl insj io lens prosth w/o ecp PHACOEMULSIFICATION CATARACT IMPLANT INTRAOCULAR LENS W/O ENDOSCOPIC CYCLOPHOTOCOAGULATION Nuclear senile cataract of right eye 04/11/2024 12:20 PM EST [facility] Start: 03-14-2024 End: 03-14-2024 Patient encounter procedure Ophthalmolog y Comment on above: Return in about 1 month (around 03/16/20). CATARACT SURGERY RIG HT EYE MELVIN *1 month (around ). EYLEA OS Start: 03-14-2024 End: 03-14-2024 Admission to same day surgery center 03/14/2024 7:00 AM EDT PAT Pre Anesthesia [address] [place] [address] 1, [facility] [place] [address] [place] [address] CATARACT SURGERY RIGHT EYE MELVIN Pre Anesthesia Comment on above: CATARACT SURGERY RIGHT EYE MELVIN Start: 02-23-2024 End: 02-23-2024 Patient encounter procedure 02/23/2024 11:15 AM EDT Office Visit [facility]HT Ophthalmology [address] [place] [address] Ramin Sprague MD [address] [place] [address] Cataract Consult *Referral scanned into [employer].* Ophthalmology Comment on above: Cataract Consult *Referral scanned into [employer].* Start: 01-22-2024 COVID-19 Vaccine ( season) COVID-19 Vaccine ( season) [facility] Start: 01-22-2024 Covid-19 Vaccine ( season) Covid-19 Vaccine ( season) [facility] Start: 01-22-2024 Influenza vaccination Influenza Vaccine (#1) [facility] Start: 01-11-2024 [facility] Start: 12-22-2023 Influenza vaccination Flu vaccine (#1) [facility] Start: 10-19-2023 Annual Wellness Visit (Medicare) Annual Wellness Visit (Medicare) [facility] Start: 05-23-2023 Advance Directive Discussion Advance Directive Discussion [facility] Start: 2016 RSV Vaccine (1 - 1-dose 75+ series) RSV Vaccine (1 - 1-dose 75+ series) [facility] Start: 2006 Pneumococcal Vaccine: 65+ (1 of 1 - PCV) Pneumococcal Vaccine: 65+ (1 of 1 - PCV) [facility] Start: 12-21-2006 Medicare Annual Wellness Visit Medicare Annual Wellness Visit [facility] Start: 2001 Respiratory Syncytial Virus (RSV) or age 60 yrs+ (1 - 1-dose 60+ series) Respiratory Syncytial Virus (RSV) or age 60 yrs+ (1 - 1-dose 60+ series) [facility] Start: 12-24-1991 Shingles vaccine (1 of 2) Shingles vaccine (1 of 2) [facility] Start: 12-24-1991 Shingrix Vaccine (1 of 2) Shingrix Vaccine (1 of 2) [facility] Start: 1960 Pneumococcal Vaccine: 50+ (1 of 2 - PCV) Pneumococcal Vaccine: 50+ (1 of 2 - PCV) [facility] Start: 12-24-1959 Anxiety Screening Anxiety Screening [facility] Start: 12-24-1959 Depression Screening Depression Screening [facility] Start: 12-24-1959 Hepatitis B surface antibody level LDL Cholesterol [facility] Start: 1953 Depression Screen Depression Screen [facility] Start: 12-24-1951 Diabetic foot examination Diabetic Foot Exam [facility] Start: 12-24-1951 Hepatitis B screening Urine Albumin:Creatinine Ratio [facility] Start: 12-24-1951 Lipid panel Lipids [facility] Start: 12-24-1947 Pneumococcal 65+ years Vaccine (1 of 2 - PCV) Pneumococcal 65+ years Vaccine (1 of 2 - PCV) [facility] Start: 12-24-1947 Pneumococcal Vaccine: 65+ (1 of 2 - PCV) Pneumococcal Vaccine: 65+ (1 of 2 - PCV) [facility] End: 08-13-2025 CORNEAL TOPOGRAPHY ATLAS OU (BOTH EYES) CORNEAL TOPOGRAPHY ATLAS OU (BOTH EYES) [facility] Imaging Routine Nuclear senile cataract of left eye Nuclear senile cataract of right eye 1 Occurrences starting 02/20/2024 until 08/13/2025 [facility] Comment on above: 1 Occurrences starting 02/20/2024 until 08/13/2025 CORNEAL TOPOGRAPHY A TLAS OU (BOTH EYES) CORNEAL TOPOGRAPHY ATLAS OU (BOTH EYES) [facility] Imaging Routine Nuclear senile cataract of left eye Nuclear senile cataract of right eye 02/23/2024 11:04 AM EDT [facility] End: 11-28-2025 CORNEAL TOPOGRAPHY PENTACAM OS (LEFT EYE) CORNEAL TOPOGRAPHY PENTACAM OS (LEFT EYE) [facility] Imaging Routine Nuclear senile cataract of left eye 1 Occurrences starting 06/06/2024 until 11/28/2025 [facility] Work Phone: Comment on above: 1 Occurrences starting 06/06/2024 until 11/28/2025 End: 08-13-2025 OCT MACULA CIRRUS OU (BOTH EYES) OCT MACULA CIRRUS OU (BOTH EYES) [facility] Imaging Routine Nuclear senile cataract of left eye Nuclear senile cataract of right eye 1 Occurrences starting 02/20/2024 until 08/13/2025 [facility] Work Phone: Comment on above: 1 Occurrences starting 02/20/2024 until 08/13/2025 OCT MACULA CIRRUS OU (BOTH EYES) OCT MACULA CIRRUS OU (BOTH EYES) [facility] Imaging Routine Nuclear senile cataract of left eye Nuclear senile cataract of right eye 02/23/2024 11:20 AM EDT [facility] Immunizations Immunization Date Immunization Notes [facility]21 influenza virus vacc ine, unspecified formulation Arash Post MD Work Phone: [facility] Payers Date Payer Category Payer Unknown [id number] 2023 Self-pay 2023 Unknown [id number] 2021 Private Health Insurance [employer] MED ICARE SUPPLEMENT [id number] 2021 Unknown MMO MMO MEDICARE SUPPLEMENT [id number] 2021-Present [phone] [address] [place] [address] Indemnity [id number] 2019 Medicare [id number] 2006 Medicare [id number] 1959 Medicare [id number] 1959 Medicare [id number] 1959 Unknown [id number] 1941 Unknown [id number] 2.16.840.1.072852.3.579.2. 727 1941 Unknown [id number] 2.16.840.1.878680.3.579.2. 593 1941 Unknown [id number] 2.16.840.1.860820.3.579.2. 593 1941 Unknown [id number] 2.16.840.1.083160.3.579.2. 593 1941 Unknown [id number] 2.16.840.1.512608.3.579.2. 593 1941 Unknown [id number] 2.16.840.1.645656.3.579.2. 593 1941 Unknown [id number] 2.16.840.1.626940.3.579.2. 593 1941 Unknown [id number] 2.16.840.1.036944.3.579.2. 593 1941 Unknown [id number] 2.16.840.1.331662.3.579.2. 593 1941 Unknown [id number] 2.16.840.1.654740.3.579.2. 593 1941 Unknown [id number] 2.16.840.1.282241.3.579.2. 593 1941 Unknown [id number] 2.16.840.1.338579.3.579.2. 593 1941 Unknown [id number] 2.16.840.1.925621.3.579.2. 593 1941 Unknown [id number] 2.16.840.1.568221.3.579.2. 593 1941 Unknown [id number] 2.16.840.1.096985.3.579.2. 593 1941 Unknown [id number] 2.16.840.1.073910.3.579.2. 593 1941 Unknown [id number] 2.16.840.1.887201.3.579.2. 593 1941 Unknown [id number] 2.16.840.1.515139.3.579.2. 593 1941 Unknown [id number] 2.16.840.1.187416.3.579.2. 176 1941 Unknown [id number] 2.16.840.1.392337.3.579.2. 173 1941 Unknown [id number] 2.16.840.1.678711.3.579.2. 173 1941 Unknown [id number] 2.16.840.1.001224.3.579.2. 173 1941 Unknown [id number] 2.16.840.1.460108.3.579.2. 175 1941 Unknown [id number] 2.16.840.1.691777.3.579.2. 175 1941 Unknown [id number] 2.16.840.1.376782.3.579.2. 175 Unknown X Medicare [id number] Unknown [id number] 2.16.840.1.276027.3.579.2. 531 Social History Date Type Detail Facility Start: 02-15-2024 End: 07-16-2024 Tobacco smoking status NHIS Ex-smoker [facility] Work Phone: Start: 05-23-2013 End: 02-15-1984 History of tobacco use Current smoker [facility] Start: 05-23-2013 End: 02-15-1984 History of tobacco use Cigarette Smoker [facility] Start: 02-15-2024 End: 07-16-2024 Tobacco use and exposure Smokeless tobacco non-user [facility] Start: 1941 Sex assigned at Not on file [facility] [employer] Start: 02-15-2024 End: 04-11-2024 Gender identity Not on file [facility] Start: 02-15-2024 End: 04-11-2024 History of Social function [facility] National Score (1-10 0), lower number is lower risk 78 [facility] Start: 03-14-2024 End: 12-21-2024 Alcoholic beverage intake Ex-drinker (finding) [facility] Has the [employer], [employer], or [employer] threatened to shut off services in your home in past 12Mo No [facility] How often to you hav e a drink containing alcohol? Never [facility] (I/We) worried wheth er (my/our) food would run out before (I/we) got money to buy more. Never true [facility] Medical Equipment Procedure Code Equipment Code Equipment Origin al Text Equipment Identifier Dates [id number] [facility] on [facility] - [id number] Start: 04-11-2024 [id number] [facility] on [facility] - [id number] Start: 08-13-2024 Clinical Notes 02-19-2022 to 12-21-2024 Arash Post MD - 12/21/2024 11:02 AM Arash Manzanares MD - 10/31/2024 2:00 PM EDTPatient Elisa Talbert OD - 08/22/2024 1:20 PM EDTSArash reid MD - 08/22/2024 12:54 PM EDT Note Date & Type Note Facility 12-21-2024 Note HNO ID: [id number] Author: ARASH POST MD Service: ? 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 Patient instructed to call [facility] if new distortion or blind spot arises Pseudophakia, right eye - Intraocular lens well-centered - Plan: observe Pseudophakia, both eyes - Intraocular lens well-centered - Plan: observe Last dilated fundus exam 07/2024 Follow Up: As scheduled I have confirmed and edited as [...] agree with all of its relevant components. 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 Patient instructed to call [facility] if new distortion or blind spot arises Pseudophakia, right eye - Intraocular lens well-centered - Plan: observe Pseudophakia, both eyes - Intraocular lens well-centered - Plan: observe Last dilated fundus exam 07/2024 Follow Up: As scheduled I have confirmed and edited as [...] agree with all of its relevant components. / documented in this encounter [facility] 12-21-2024 Note Date of Procedure 12/21/2024. Ice Resurfacing Machine [employer] Information Computer Systems Software Architect: [email or web address]. Start time: 10:45 AM. Stop time: 10:49 AM. OCT Macula Interpretation Right Eye Findings include Drusen, Drusenoid PED, Thickened Choroid; Negative for Intraretinal fluid, Cystoid macular edema, Subretinal fluid. Left Eye Findings include IS/OS junction, Atrophy; Negative for Intraretinal fluid, Cystoid macular edema, Subretinal fluid. Interval Change Right Eye Stable. Left Eye Stable. [facility] 10-31-2024 Note Date of Procedure 10/31/2024. OCT Macula Interpretation Right Eye Findings include Drusen, Drusenoid PED; Negative for Intraretinal fluid, Cystoid macular edema, Subretinal fluid. Left Eye Findings include Drusen, Drusenoid PED; Negative for Intraretinal fluid, Cystoid macular edema, Subretinal fluid. Interval Change Right Eye Stable. Left Eye Stable. [facility] 10-31-2024 Note Date of Procedure 10/31/2024 [place] Protocol Safety Checklist A moment of CARE was completed Sign In Sign in communication not applicable due to emergent procedure. Personnel directly involved with the procedure wore the appropriate PEE. Special Equipment: N/A. Patient/surrogate stated/verified patient name, date of , relevant allergies, intended procedure. Provider Confirms: Relevant labs, photos, and/or imaging studies have been reviewed: N/A. Intended patient and procedure match the source document(s) (e.g. consent, associated studies [imaging, pathology]). Consent obtained and matches the intended procedure. Correct side/site marked and visible. Medications required for procedure verified. Fire risk assessed and interventions discussed: N/A. Correct implant(s) confirmed including size and side: N/A. Sign Out All specimens are correctly labeled and sent: N/A. All instruments, equipment, possible retained foreign bodies accounted for. Post-procedure POC communicated to patient or surrogate. Post-procedure POC communicated to patient's multidisciplinary team: N/A. Anesthesia 0.5 mL subconjunctival injection of 2% Lidocaine. Injection Administration Medication: 2 mg aflibercept prefilled syringe 2 mg/0.05 mL Route: INTRAVITREAL, Site: Left Balance Wasted Residual medication less than 1 unit was discarded. Anterior Chamber Paracentesis No. Post Injection Evaluation Patient has at least hand motion vision. Post Procedure Medications None. Home Going Prescription None. 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 Patient instructed to call CHRISTINE if new distortion or blind spot arises Pseudophakia, right eye - Intraocular lens well-centered - Plan: observe Pseudophakia, both eyes - Intraocular lens well-centered - Plan: observe Last dilated fundus exam 07/2024 Follow Up: 12 weeks for dilated fundus exam, OCT both eyes, possible switch to as needed treatment I have confirmed and edited as necessary [...] agree with all of its relevant components. / documented in this encounter [facility] 10-31-2024 Note HNO ID: [id number] Author: ARASH POST MD Service: ? 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 Patient instructed to call CHRISTINE if new distortion or blind spot arises Pseudophakia, right eye - Intraocular lens well-centered - Plan: observe Pseudophakia, both eyes - Intraocular lens well-centered - Plan: observe Last dilated fundus exam 07/2024 Follow Up: 12 weeks for dilated fundus exam, OCT both eyes, possible switch to as needed treatment I have confirmed and edited as necessary [...] agree with all of its relevant components. / [facility] 10-31-2024 Instructions Arash Post MD - 10/31/2024 1:29 PM EDT Post Injection Patient Information You [...] than dabbing lightly with a tissue An fwgm-vmt-jychiax pain reliever (i.e. Tylenol) can be used [...] If it is after hours please call [phone] which will give instructions on how to reach the eye doctor hospice community liaison documented in this encounter [facility] 08-22-2024 Note Date of Procedure 08/22/2024. Ice Resurfacing Machine Operators Information Computer Systems Software Architect: SJ. Jacinto CONLEY. +movement. OCT Macula Interpretation Right Eye Findings include Drusen, Drusenoid PED; Negative for Intraretinal fluid, Cystoid macular edema, Subretinal fluid. Left Eye Findings include Drusen, Drusenoid PED, Atrophy; Negative for Intraretinal fluid, Cystoid macular edema, Subretinal fluid. Interval Change Right Eye Stable. Left Eye Stable. [facility] 08-22-2024 Note Date of Procedure 08/22/[address] [place] Protocol Safety Checklist Sign In: Special equipment [...] Post-procedure follow up management communicated. No specimens. [facility] 08-22-2024 Note HNO ID: [id number] Author: ELISA CHI, CHRISTELLE Service: ? Author Type: ACUTE CARE ASSISTANT Type: Progress Notes Filed: 08/22/2024 13:22 Note Text: ASSESSMENT/PLAN: (Z96.1) Pseudophakia of both eyes (primary encounter diagnosis) (H35.3221) Exudative age-related macular degeneration of left eye with active choroidal neovascularization (HCC) (H35.3112) Nonexudative age-related macular degeneration, right eye, intermediate dry stage (H50.9) Strabismus Educated patient on findings. Patient is doing well today for 7-10 day post op cataract surgery left eye. -S/P PC IOL left eye (08/13/2024) Aim: -2.00 doing well; He declined having a toric IOL - S/P PC IOL right eye Aim: -1.50 He declined having a toric IOL Continue to use the following drops in the operative eye: 1. Prednisolone Acetate 4 times a day for 7 days after surgery and then taper as indicated on the provided drop schedule. 2. Ketorolac twice a day for 10 days Continue with restrictions as previously instructed. Advised to continue to self-monitor for changes to vision or ocular health and return promptly with symptoms. Patient instructed to check each eye separately and daily. OK to use artificial tears four times per day; avoid using within 5 minutes of other drops. Return to clinic today with Dr. Post for AMD follow up. As planned with Dr. Cisse for FPO and refraction I have confirmed and edited as necessary [...] of its relevant components. Elisa Chi, OD August 22, 2024 1:20 PM [facility] 08-22-2024 History of Present illness Narrative ASSESSMENT/PLAN: (Z96.1) Pseudophakia of both eyes (primary encounter diagnosis) (H35.3221) Exudative age-related macular degeneration of left eye with active choroidal neovascularization (HCC) (H35.3112) Nonexudative age-related macular degeneration, right eye, intermediate dry stage (H50.9) Strabismus Educated patient on findings. Patient is doing well today for 7-10 day post op cataract surgery left eye. -S/P PC IOL left eye (08/13/2024) Aim: -2.00 doing well; He declined having a toric IOL - S/P PC IOL right eye Aim: -1.50 He declined having a toric IOL Continue to use the following drops in the operative eye: 1. Prednisolone Acetate 4 times a day for 7 days after surgery and then taper as indicated on the provided drop schedule. 2. Ketorolac twice a day for 10 days Continue with restrictions as previously instructed. Advised to continue to self-monitor for changes to vision or ocular health and return promptly with symptoms. Patient instructed to check each eye separately and daily. OK to use artificial tears four times per day; avoid using within 5 minutes of other drops. Return to clinic today with Dr. Post for AMD follow up. As planned with Dr. Cisse for FPO and refraction I have confirmed and edited as necessary [...] of its relevant components. Elisa Chi, CHRISTELLE August 22, 2024 1:20 PM documented in this encounter [facility] 08-22-2024 Note HNO ID: [id number] Author: ARASH POST MD Service: ? 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 Patient instructed to call CHRISTINE if new distortion or blind spot arises Pseudophakia, right eye - Intraocular lens well-centered - Plan: observe Pseudophakia, both eyes - Intraocular lens well-centered - Plan: observe Follow Up: 10 weeks for DTI Eylea left eye I [...] agree with all of its relevant components. 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 Patient instructed to call CHRISTINE if new distortion or blind spot arises Pseudophakia, right eye - Intraocular lens well-centered - Plan: observe Pseudophakia, both eyes - Intraocular lens well-centered - Plan: observe Follow Up: 10 weeks for DTI Eylea left eye I [...] its relevant components. documented in this encounter [facility] 08-22-2024 Instructions Arash Post MD - 08/22/2024 12:54 PM EDT Post Injection Patient Information You [...] than dabbing lightly with a tissue An xpyp-tks-verfslm pain reliever (i.e. Tylenol) can be used [...] If it is after hours please call [phone] which will give instructions on how to reach the eye doctor hospice community liaison documented in this encounter [facility] 08-14-2024 Note HNO ID: [id number] Author: RAMIN SPRAGUE MD Service: ? Author Type: ACUTE CARE ASSISTANT Type: Progress Notes Filed: 08/14/2024 18:40 Note Text: ASSESSMENT/PLAN: 1. Pseudophakia - ICD9: V43.1, ICD10: Z96.1 (primary diagnosis) - 1 day PO S/P PC IOL left eye (08/13/2024) Aim: -2.00 doing well; He declined having a toric IOL despite having 4 diopters at 69 degrees and he voiced understanding preoperatively that he would need to continue wearing prism glasses to alleviate diplopia and to correct residual astigmatism OU - 4 months PO S/P PC IOL right eye Aim: -1.50 He declined having a toric IOL OD despite having 2 diopters at 133 degrees. The patient was instructed to.... - Use Ocuflox Drops in the operative eye 4 times a day for 3 days after surgery, then stop. - Use Prednisolone Acetate Drops in the operative eye 4 times a day for 7 days after surgery and then taper the Prednisolone Acetate over 15 days (decreasing by 1 drop every 5 days). - Use Ketorolac Drops in the operative eye twice daily for 10 days, then stop. Wear the eye shield at night over [...] surgery to alleviate any dry eye symptoms. May trial OTC readers until getting updated glasses. The signs and symptoms of a retinal tear/detachment (flashes, floaters, or change in peripheral vision) were reviewed with the patient as well as the signs and symptoms of infection (decreased vision, red eye, painful eye, or eyelid swelling). Call or return to our office immediately if any of these symptoms are present. Continue having Age related macular degeneration treated by Dr. Post. Copy of today's visit note was sent to Dr. Cisse Return to clinic as scheduled 08/22/24 for VATA, refraction with Dr. Augie Chi and same day retinal evaluation with Dr. Post; In about one month or whenever recommended by Dr. Post, get update glasses with Dr. Cisse or sooner as needed I have confirmed and edited as necessary [...] of its relevant components. Elisa Chi, OD August 14, 2024 11:40 AM [facility] 08-14-2024 History of Present illness Narrative ASSESSMENT/PLAN: 1. Pseudophakia - ICD9: V43.1, ICD10: Z96.1 (primary diagnosis) - 1 day PO S/P PC IOL left eye (08/13/2024) Aim: -2.00 doing well; He declined having a toric IOL despite having 4 diopters at 69 degrees and he voiced understanding preoperatively that he would need to continue wearing prism glasses to alleviate diplopia and to correct residual astigmatism OU - 4 months PO S/P PC IOL right eye Aim: -1.50 He declined having a toric IOL OD despite having 2 diopters at 133 degrees. The patient was instructed to.... - Use Ocuflox Drops in the operative eye 4 times a day for 3 days after surgery, then stop. - Use Prednisolone Acetate Drops in the operative eye 4 times a day for 7 days after surgery and then taper the Prednisolone Acetate over 15 days (decreasing by 1 drop every 5 days). - Use Ketorolac Drops in the operative eye twice daily for 10 days, then stop. Wear the eye shield at night over [...] surgery to alleviate any dry eye symptoms. May trial OTC readers until getting updated glasses. The signs and symptoms of a retinal tear/detachment (flashes, floaters, or change in peripheral vision) were reviewed with the patient as well as the signs and symptoms of infection (decreased vision, red eye, painful eye, or eyelid swelling). Call or return to our office immediately if any of these symptoms are present. Continue having Age related macular degeneration treated by Dr. Post. Copy of today's visit note was sent to Dr. Cisse Return to clinic as scheduled 08/22/24 for VATA, refraction with Dr. Augie Chi and same day retinal evaluation with Dr. Post; In about one month or whenever recommended by Dr. Post, get update glasses with Dr. Cisse or sooner as needed I have confirmed and edited as necessary [...] of its relevant components. Elisa Chi, OD August 14, 2024 11:40 AM documented in this encounter [facility] 07-25-2024 Note Date of Procedure 07/25/2024. OCT Macula Interpretation Right Eye Findings include Drusen, IS/OS junction, RPE Irregularity; Negative for Intraretinal fluid, Subretinal fluid. Left Eye Findings include Subretinal fluid, PED, Drusen, IS/OS junction, RPE Irregularity, Atrophy. Interval Change Right Eye Stable. Left Eye Stable. [facility] 07-25-2024 Note HNO ID: [id number] Author: ARASH POST MD Service: ? Author [...] agree with all of its relevant components. [facility] 07-25-2024 History of Present illness Narrative Dr [...] its relevant components. documented in this encounter [facility] 07-18-2024 Telephone encounter Note Per Christie Cassidy CNP, patient's potassium is elevated. I called and spoke with patient's nephew, Reid. He is aware patient needs to hold potassium supplement, increase hydration and avoid high potassium foods. Reid is aware patient needs to go to any [facility] lab next week for repeat lab. Corinna Murry LPN July 18, 2024 8:23 AM [facility] 07-18-2024 Miscellaneous Notes Per Christie Cassidy CNP, patient's potassium is elevated. I called and spoke with patient's nephew, Reid. He is aware patient needs to hold potassium supplement, increase hydration and avoid high potassium foods. Reid is aware patient needs to go to any [facility] lab next week for repeat lab. Corinna Murry LPN July 18, 2024 8:23 AM documented in this encounter [facility] 07-16-2024 Note HNO ID: [id number] Author: CHRISTAL ANDERSON COA Service: ? Author Type: Ice Resurfacing Machine Operators Type: Progress Notes Filed: 07/16/2024 11:17 Note Text: CONFIRM AIM NEAR LEFT EYE AIM -2.00 TORIC IOL DECLINED SECONDARY TO NEEDING PRISM GLASSES. PRAKASH Shafer [facility] 07-16-2024 Note Date of Procedure 07/16/2024. Ice Resurfacing Machine Operators Information PRAKASH Shafer . Notes Measurements only - see Procedure Record under Scanned Documents for signed results. [facility] 07-16-2024 Note Date of Procedure 07/16/2024. Ice Resurfacing Machine Operators Information PRAKASH Shafer . Notes Ascan report in paper chart and scanned to patient chart after post op period. A-SCAN RIGHT EYE: done A-SCAN LEFT EYE: 25.69 [facility] 07-16-2024 History of Present illness Narrative CONFIRM AIM NEAR LEFT EYE AIM -2.00 TORIC IOL DECLINED SECONDARY TO NEEDING PRISM GLASSES. PRAKASH Shafer documented in this encounter [facility] 07-16-2024 History and physical note HISTORY AND [...] have a large neck STOP-Bang Score: 3 [id number] Score: Age: >=75 Sex: male CHF history: Yes Hypertension history: Yes Stroke/TIA/thromboembolism history: No Vascular disease history: Yes Diabetes history: Yes [id number] Score: 6 ARISCAT Score: Age: >80 Preoperative [...] Previously had right cataract done at [facility] on 04/11/24. CONSULTS: Patient does not require [...] fevers. Neuro: No history of TIA's, stroke, MERCHANDISE PRESENTATION MANAGER tumor, impaired sensorium, hemiplegia, paraplegia or quadraplegia. [...] Elvira Bergman DATE: 07/16/2024 TIME: 10:25 AM [facility] 07-16-2024 History and physical note HISTORY AND [...] have a large neck STOP-Bang Score: 3 [id number] Score: Age: >=75 Sex: male CHF history: Yes Hypertension history: Yes Stroke/TIA/thromboembolism history: No Vascular disease history: Yes Diabetes history: Yes [id number] Score: 6 ARISCAT Score: Age: >80 Preoperative [...] Previously had right cataract done at [facility] on 04/11/24. CONSULTS: Patient does not require [...] fevers. Neuro: No history of TIA's, stroke, MERCHANDISE PRESENTATION MANAGER tumor, impaired sensorium, hemiplegia, paraplegia or quadraplegia. [...] TIME: 10:25 AM documented in this encounter [facility] 07-16-2024 Instructions Christie Cassidy APRN.CNP - 07/16/2024 10:08 AM EST PATIENT PREOPERATIVE INSTRUCTIONS Ramin Sprague has scheduled you for your procedure at this surgery center: [facility]: [phone] --[address] [place] [address]. Please read below carefully for your personalized [...] office. If you are currently using a jxdc-tyo-ienm injectable or oral medication for diabetes or [...] Procedures: - YOU MUST HAVE A RESPONSIBLE ANDROID FRAMEWORK DEVELOPER TAKE YOU HOME. A DIRECTOR CHILD DEVELOPMENT CENTER OR TRAIL MAINTENANCE WORKER CANNOT BE MADE A RESPONSIBLE ANDROID FRAMEWORK DEVELOPER. - We recommend that a responsible person [...] Advance Directive, please fax a copy to [phone] or email to for it to be [...] chart that day. documented in this encounter [facility] 06-28-2024 Note HNO ID: [id number] Author: RAMIN SPRAGUE MD Service: ? Author [...] will still need to wear prism glasses multimedia producer after having cataract surgery. - Contact lens [...] surgery left eye. 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 [facility] 06-28-2024 History of Present illness Narrative ASSESSMENT/PLAN: [...] will still need to wear prism glasses multimedia producer after having cataract surgery. - Contact lens [...] surgery left eye. 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 Cisse; offered cataract Surgery OS, schedule via his nephew, who lives in [place] and drives patients for his visits here. [...] the presence of, Dr. Ramin Sprague M.D. The documentation recorded by the scribe [...] Ramin Sprague MD documented in this encounter [facility] 06-20-2024 Note Date of Procedure 06/20/2024. Ice Resurfacing Machine Operators Information Computer Systems Software Architect: chelsy. OCT Macula Interpretation Right Eye Findings include Drusen, Drusenoid PED; Negative for Intraretinal fluid, Cystoid macular edema, Subretinal fluid. Left Eye Findings include Drusen, Drusenoid PED; Negative for Intraretinal fluid, Cystoid macular edema, Subretinal fluid. Interval Change Right Eye Stable. Left Eye Stable. [facility] 06-20-2024 Note HNO ID: [id number] Author: ARASH POST MD Service: ? Author [...] agree with all of its relevant components. [facility] 06-20-2024 History of Present illness Narrative Neovascular [...] its relevant components. documented in this encounter [facility] 06-20-2024 Note Date of Procedure 06/20/[address]24 [place] Protocol Safety Checklist Sign In: Special equipment [...] Post-procedure follow up management communicated. No specimens. [facility] 05-03-2024 Telephone encounter Note Patient has been reminded to check with pharmacy 24 to 48hr after request. Pt is identified by name and birthdate: Yes Patient phones requesting refills as follows: Requested Prescriptions Pending Prescriptions Disp Refills prednisoLONE acetate (PRED FORTE) 1 % ophthalmic suspension Sig: Use one drop in operative eye as directed by Dr. Sprague starting tomorrow. Please review and advise. [facility] 05-03-2024 Miscellaneous Notes Patient has been reminded [...] review and advise. documented in this encounter [facility] 05-03-2024 Telephone encounter Note Pt went to see at [facility] at the the one week follow up told the pt to start over with their eye drops. They are currently following the second week instructions 3 times a day. Pt stated they are almost out drops. Only enough for about the rest of the day. [facility] 05-03-2024 Miscellaneous Notes Pt went to see at [facility] at the the one week follow up told the pt to start over with their eye drops. They are currently following the second week instructions 3 times a day. Pt stated they are almost out drops. Only enough for about the rest of the day. documented in this encounter [facility] 04-25-2024 Note HNO ID: [id number] Author: ARASH POST MD Service: ? Author [...] agree with all of its relevant components. [facility] 04-25-2024 Note Date of Procedure 04/25/2024. Interpretation Right Eye Findings include Drusen, Drusenoid PED; Negative for Intraretinal fluid, Cystoid macular edema, Subretinal fluid. Left Eye Findings include PED, Drusen, Drusenoid PED; Negative for Intraretinal fluid, Cystoid macular edema, Subretinal fluid. Interval Change Right Eye Stable. Left Eye Better. [facility] 04-25-2024 Note Date of Procedure 04/25/[address]24 [place] Protocol Safety Checklist Sign In: A moment [...] communicated. No specimens. Notes Lot # Exp [facility] 04-25-2024 History of Present illness Narrative Neovascular [...] its relevant components. documented in this encounter [facility] 04-12-2024 Note HNO ID: [id number] Author: ELISA CHI OD Service: ? Author Type: ACUTE CARE ASSISTANT Type: Progress Notes Filed: 04/12/2024 10:42 Note [...] AMD management. Return to clinic 2-5 days MIRIAM, refraction with Dr. Cisse; Dr. Post 04/25 [...] Chi, OD April 12, 2024 10:29 AM [facility] 04-12-2024 History of Present illness Narrative ASSESSMENT/PLAN: [...] 2024 10:29 AM documented in this encounter [facility] 03-14-2024 Note Date of Procedure 03/14/2024. Ice Resurfacing Machine Operators Information Computer Systems Software Architect: MACIE. Interpretation Right Eye Findings include Drusen, Drusenoid PED; Negative for Intraretinal fluid, Cystoid macular edema, Subretinal fluid. Left Eye Findings include Drusen, Drusenoid PED; Negative for Intraretinal fluid, Cystoid macular edema, Subretinal fluid. Interval Change Right Eye Stable. Left Eye Better. [facility] 03-14-2024 Note Date of Procedure 03/14/[address] [place] Protocol Safety Checklist Sign In: Special equipment [...] Post-procedure follow up management communicated. No specimens. [facility] 03-14-2024 Note HNO ID: [id number] Author: TRINA PANIAGUA COA Service: ? Author Type: Truck Crane Operator Helper Type: Progress Notes Filed: 03/16/2024 09:08 Note [...] PRAKASH Amador March 14, 2024 8:26 AM [facility] 03-14-2024 Note Date of Procedure 03/14/2024. Ice Resurfacing Machine Operators Information Computer Systems Software Architect: trina. [facility] 03-14-2024 Note Date of Procedure 03/14/2024. Ice Resurfacing Machine Operators Information Computer Systems Software Architect: trina. Notes Measurements only - see Procedure [...] 2024 8:26 AM documented in this encounter [facility] 03-14-2024 Note HNO ID: [id number] Author: ARASH POST MD Service: ? Author [...] agree with all of its relevant components. [facility] 03-14-2024 History of Present illness Narrative Neovascular [...] its relevant components. documented in this encounter [facility] 03-14-2024 Instructions Vinny Jewell APRN.SPANISH LANGUAGE LECTURER - 03/14/2024 7:25 AM EDT Images from the original note were not included. [facility] PATIENT PREOPERATIVE INSTRUCTIONS Ramin Sprague MD has scheduled you for your procedure at this surgery center: [facility]: [phone] --[address] [place] [address]. Please read below carefully for your personalized [...] Procedures: - YOU MUST HAVE A RESPONSIBLE ANDROID FRAMEWORK DEVELOPER TAKE YOU HOME. A DIRECTOR CHILD DEVELOPMENT CENTER OR TRAIL MAINTENANCE WORKER CANNOT BE MADE A RESPONSIBLE ANDROID FRAMEWORK DEVELOPER. - We recommend that a responsible person stays with you overnight to take care of you. - You cannot stay in a hotel alone after outpatient surgery. You will not be permitted to have your surgery, if you do not have someone to take care of you. If you already have an Advance Directive, please fax a copy to [phone] or email to for it to be [...] into your chart that day. Vinny Jewell APRN.SPANISH LANGUAGE LECTURER documented in this encounter [facility] 03-14-2024 History and physical note Images from [...] have a large neck STOP-Bang Score: 3 [id number] Score: Age: >=75 Sex: male CHF history: No Hypertension history: Yes Stroke/TIA/thromboembolism history: No Vascular disease history: Yes Diabetes history: Yes [id number] Score: 5 ARISCAT Score: Age: >80 Preoperative [...] fevers. Neuro: No history of TIA's, stroke, MERCHANDISE PRESENTATION MANAGER tumor, impaired sensorium, hemiplegia, paraplegia or quadraplegia. [...] 492 QTc Calculation (Bazett) ms 461 R [place] degrees -47 T [place] degrees 178 Resulting Agency PN STV MUSE Narrative Performed by [facility] STV MUSE Atrial fibrillation with slow ventricular [...] Elvira Bergman DATE: 03/14/2024 TIME: 7:27 AM [facility] 03-14-2024 History and physical note Images from [...] have a large neck STOP-Bang Score: 3 [id number] Score: Age: >=75 Sex: male CHF history: No Hypertension history: Yes Stroke/TIA/thromboembolism history: No Vascular disease history: Yes Diabetes history: Yes [id number] Score: 5 ARISCAT Score: Age: >80 Preoperative [...] fevers. Neuro: No history of TIA's, stroke, MERCHANDISE PRESENTATION MANAGER tumor, impaired sensorium, hemiplegia, paraplegia or quadraplegia. [...] 492 QTc Calculation (Bazett) ms 461 R [place] degrees -47 T [place] degrees 178 Resulting Agency [facility] STV MUSE Narrative Performed by [facility] STV MUSE Atrial fibrillation with slow ventricular [...] TIME: 7:27 AM documented in this encounter [facility] 02-23-2024 Note HNO ID: [id number] Author: RAMIN SPRAGUE MD Service: ? Author [...] need to continue to wear prism glasses multimedia producer to correct diplopia and to correct residual [...] will still need to wear prism glasses multimedia producer after having cataract surgery. - Contact lens [...] if patient desires. 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 Cisse; offered cataract Surgery OD (then OS once cleared by Dr. Post). Comanage with (more content not included)... [facility] 02-23-2024 History of Present illness Narrative ASSESSMENT/PLAN: [...] need to continue to wear prism glasses multimedia producer to correct diplopia and to correct residual [...] will still need to wear prism glasses multimedia producer after having cataract surgery. - Contact lens [...] if patient desires. 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 Cisse; [...] Sprague MD 02/23/24 documented in this encounter [facility] 02-15-2024 Note Date of Procedure 02/15/2024 [place] Protocol Safety Checklist Sign In: Special equipment [...] Post-procedure follow up management communicated. No specimens. [facility] 02-15-2024 Note Date of Procedure 02/15/2024. Interpretation [...] than dabbing lightly with a tissue An [id number] pain reliever (i.e. Tylenol) can be used [...] If it is after hours please call [phone] which will give instructions on how to reach the eye doctor hospice community liaison documented in this encounter [facility] 02-15-2024 History of Present illness Narrative Neovascular [...] -Patient is scheduled for an evaluation at [facility] Follow Up: 1 month for DTI Eylea [...] its relevant components. documented in this encounter [facility] 02-15-2024 Note HNO ID: [id number] Author: ARASH POST MD Service: ? Author [...] -Patient is scheduled for an evaluation at [facility] Follow Up: 1 month for DTI Eylea [...] agree with all of its relevant components. [facility] 04-03-2022 Note PROCEDURE: XR KNEE R T 4V or > COMPARISON: None. HISTORY: Pain FINDINGS: BONES:No fracture, acute abnormality, or significant arthropathy. SOFT TISSUES:Negative. No visible soft tissue swelling. EFFUSION:None visible. OTHER: Extensive vascular calcification IMPRESSION: No acute abnormality Electronically authenticated by: CHEPE MONTES DE OCA Date: 2022-04-03 18:18 [facility] 03-12-2022 Note Patient here to disc uss LORENZO/cardioversion. Review of Systems Cardiovascular: Positive for leg swelling. Neurological: Positive for light-headedness. All other systems reviewed and are negative. [facility] 03-12-2022 Note [facility] [facility] Consul t Note Reason for Consultation: CMP/ Afib HPI: Elvira Bergman is a 81 y.o. year old with past medical history of Afib, IN s/p PCI/stent placement 01/2017 with prior IN/stents in 2004 to the LAD and RCA, HFrEF, PVD, DM type II, and HTN. He recently presented to [facility] with c/o worsening SOB. He [...] anxious about getting any procedure, despite meeting PROGRAM PROJECT MANAGER requirements. PSHx: cardiac cath 2004 FMHx: father - IN ETOH: denies Tobacco: former smoker Illicit drugs: [...] Atrial Rate 09 (more content not included)... [facility] 02-19-2022 Note [facility] Consul t Note Reason for Consultation: CMP HPI: Elvira Bergman is a 81 y.o. year old with past medical history of Afib, IN s/p PCI/stent placement 01/2017 with prior IN/stents in 2004 to the LAD and RCA, HFrEF, PVD, DM type II, and HTN. He recently presented to [facility] with c/o worsening SOB. He [...] PSHx: cardiac cath 2004 FMHx: father - [place] ETOH: denies Tobacco: former smoker Illicit drugs: [...] a 76-year-old male, who was admitted at [facility] with chest pain. His ECG showed ST-elevation concerning for ST-elevation myocardial infarction. Because of that, he was life flighted to [facility]. PROCEDURE: 1. Coronary angiography from right radial access. 2. Balloon angioplasty in LAD. 3. Drug-eluting (more content not included)... [facility] 02-19-2022 Note 1 [facility] Evaluation note Diagnosis Exudative age-related macular degeneration of left eye with active choroidal neovascularization (HCC)- Primary [facility] Diagnosis Nuclear senile cataract of right eye- Primary Nuclear senile cataract of left eye Regular astigmatism of both eyes Regular astigmatism 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, right eye, 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 Nuclear senile cataract of right eye [facility] Diagnosis Pre-op evaluation- Primary Preoperative examination, unspecified Benign prostatic hyperplasia without urinary obstruction Type 2 diabetes mellitus without complication, unspecified whether rat exterminator insulin use (HCC) Pure hypercholesterolemia Essential hypertension Unspecified essential hypertension Persistent atrial fibrillation (HCC) Atrial fibrillation Atherosclerosis of coronary artery without angina pectoris, unspecified vessel or lesion type, unspecified whether [place] or transplanted heart Nuclear senile cataract of right eye * Assessment & Plan Note - Vinny Jewell APRN.SPANISH LANGUAGE LECTURER - 03/14/2024 7:43 AM EDTAssociated Problem(s): Coronary [...] stable on Flomax documented in this encounter [facility] note* Diagnosis Exudative age-related macular degeneration of left eye with active choroidal neovascularization (HCC)- Primary Pre-op evaluation- Primary Preoperative examination, unspecified Benign prostatic hyperplasia without urinary obstruction Type 2 diabetes mellitus without complication, unspecified whether prison insulin use (HCC) Pure hypercholesterolemia Essential hypertension Unspecified essential hypertension Persistent atrial fibrillation (HCC) Atrial fibrillation Atherosclerosis of coronary artery without angina pectoris, unspecified vessel or lesion type, unspecified whether [place] or transplanted heart Nuclear senile cataract of right eye documented in this encounter [facility] note* Diagnosis Pre-op evaluation- Primary Preoperative examination, unspecified Benign prostatic hyperplasia without urinary obstruction Type 2 diabetes mellitus without complication, unspecified whether prison insulin use (HCC) Pure hypercholesterolemia Essential hypertension Unspecified essential hypertension Persistent atrial fibrillation (HCC) Atrial fibrillation Atherosclerosis of coronary artery without angina pectoris, unspecified vessel or lesion type, unspecified whether [place] or transplanted heart Nuclear senile cataract of right eye Nuclear senile cataract of right eye documented in this encounter [facility] note* Diagnosis Pre-op evaluation- Primary Preoperative examination, unspecified Benign prostatic hyperplasia without urinary obstruction Type 2 diabetes mellitus without complication, unspecified whether prison insulin use (HCC) Pure hypercholesterolemia Essential hypertension Unspecified essential hypertension Persistent atrial fibrillation (HCC) Atrial fibrillation Atherosclerosis of coronary artery without angina pectoris, unspecified vessel or lesion type, unspecified whether [place] or transplanted heart Pseudophakia, right eye- Primary Lens replaced by other means Combined form of age-related cataract, left eye documented in this encounter [facility] note* Diagnosis Pre-op evaluation- Primary Preoperative examination, unspecified Benign prostatic hyperplasia without urinary obstruction Type 2 diabetes mellitus without complication, unspecified whether rat exterminator insulin use (HCC) Pure hypercholesterolemia Essential hypertension Unspecified essential hypertension Persistent atrial fibrillation (HCC) Atrial fibrillation Atherosclerosis of coronary artery without angina pectoris, unspecified vessel or lesion type, unspecified whether [place] or transplanted heart Exudative age-related macular degeneration of left eye with active choroidal neovascularization (HCC) documented in this encounter [facility] note* Diagnosis Traumatic closed fracture of C2 vertebra with minimal displacement, [facility] encounter [facility] documented in this encounter [facility] note* Diagnosis Pre-op evaluation- Primary Preoperative examination, unspecified Benign prostatic hyperplasia without urinary obstruction Type 2 diabetes mellitus without complication, unspecified whether rat exterminator insulin use (HCC) Pure hypercholesterolemia Essential hypertension Unspecified essential hypertension Persistent atrial fibrillation (HCC) Atrial fibrillation Atherosclerosis of coronary artery without angina pectoris, unspecified vessel or lesion type, unspecified whether [place] or transplanted heart Exudative age-related macular degeneration of left eye with active choroidal neovascularization (HCC) Combined form of age-related cataract, left eye- Primary documented in this encounter [facility] note* Diagnosis Pre-op evaluation- Primary Preoperative examination, unspecified Benign prostatic hyperplasia without urinary obstruction Type 2 diabetes mellitus without complication, unspecified whether rat exterminator insulin use (HCC) Pure hypercholesterolemia Essential hypertension Unspecified essential hypertension Persistent atrial fibrillation (HCC) Atrial fibrillation Atherosclerosis of coronary artery without angina pectoris, unspecified vessel or lesion type, unspecified whether [place] or transplanted heart Nuclear senile cataract of [...] of left eye documented in this encounter [facility] note* Diagnosis Pre-op evaluation- Primary Preoperative examination, unspecified Benign prostatic hyperplasia without urinary obstruction Type 2 diabetes mellitus without complication, unspecified whether rat exterminator insulin use (HCC) Pure hypercholesterolemia Essential hypertension Unspecified essential hypertension Persistent atrial fibrillation (HCC) Atrial fibrillation Atherosclerosis of coronary artery without angina pectoris, unspecified vessel or lesion type, unspecified whether [place] or transplanted heart Pre-op examination- Primary Preoperative examination, unspecified Abnormal finding of blood chemistry, unspecified Benign prostatic hyperplasia without urinary obstruction Type 2 diabetes mellitus without complication, unspecified whether prison insulin use (HCC) Persistent atrial fibrillation (HCC) Atrial fibrillation Atherosclerosis of coronary artery without angina pectoris, unspecified vessel or lesion type, unspecified whether [place] or transplanted heart Essential hypertension Unspecified essential hypertension Pure hypercholesterolemia Chronic systolic heart failure (HCC) Chronic systolic heart failure Nuclear senile cataract of left eye * Assessment & Plan Note - Christie Cassidy APRN.SPANISH LANGUAGE LECTURER - 07/16/2024 10:30 AM EST Associated Problem(s): [...] stable on flomax documented in this encounter [facility] note* Diagnosis Pre-op evaluation- Primary Preoperative examination, unspecified Benign prostatic hyperplasia without urinary obstruction Type 2 diabetes mellitus without complication, unspecified whether rat exterminator insulin use (HCC) Pure hypercholesterolemia Essential hypertension Unspecified essential hypertension Persistent atrial fibrillation (HCC) Atrial fibrillation Atherosclerosis of coronary artery without angina pectoris, unspecified vessel or lesion type, unspecified whether [place] or transplanted heart Nuclear senile cataract of left eye Pre-op examination- Primary Preoperative examination, unspecified Abnormal finding of blood chemistry, unspecified Benign prostatic hyperplasia without urinary obstruction Type 2 diabetes mellitus without complication, unspecified whether prison insulin use (HCC) Persistent atrial fibrillation (HCC) Atrial fibrillation Atherosclerosis of coronary artery without angina pectoris, unspecified vessel or lesion type, unspecified whether [place] or transplanted heart Essential hypertension Unspecified essential hypertension Pure hypercholesterolemia Chronic systolic heart failure (HCC) Chronic systolic heart failure Nuclear senile cataract of left eye documented in this encounter [facility] note* Diagnosis Pre-op evaluation- Primary Preoperative examination, unspecified Benign prostatic hyperplasia without urinary obstruction Type 2 diabetes mellitus without complication, unspecified whether rat exterminator insulin use (HCC) Pure hypercholesterolemia Essential hypertension Unspecified essential hypertension Persistent atrial fibrillation (HCC) Atrial fibrillation Atherosclerosis of coronary artery without angina pectoris, unspecified vessel or lesion type, unspecified whether [place] or transplanted heart Pre-op examination- Primary Preoperative examination, unspecified Abnormal finding of blood chemistry, unspecified Benign prostatic hyperplasia without urinary obstruction Type 2 diabetes mellitus without complication, unspecified whether prison insulin use (HCC) Persistent atrial fibrillation (HCC) Atrial fibrillation Atherosclerosis of coronary artery without angina pectoris, unspecified vessel or lesion type, unspecified whether [place] or transplanted heart Essential hypertension Unspecified essential hypertension Pure hypercholesterolemia Chronic systolic heart failure (HCC) Chronic systolic heart failure Exudative age-related macular degeneration of left eye with active choroidal neovascularization (HCC)- Primary Nuclear senile cataract of left eye documented in this encounter [facility] note* Diagnosis Pre-op evaluation- Primary Preoperative examination, unspecified Benign prostatic hyperplasia without urinary obstruction Type 2 diabetes mellitus without complication, unspecified whether prison insulin use (HCC) Pure hypercholesterolemia Essential hypertension Unspecified essential hypertension Persistent atrial fibrillation (HCC) Atrial fibrillation Atherosclerosis of coronary artery without angina pectoris, unspecified vessel or lesion type, unspecified whether [place] or transplanted heart Pre-op examination- Primary Preoperative examination, unspecified Abnormal finding of blood chemistry, unspecified Benign prostatic hyperplasia without urinary obstruction Type 2 diabetes mellitus without complication, unspecified whether rat exterminator insulin use (HCC) Persistent atrial fibrillation (HCC) Atrial fibrillation Atherosclerosis of coronary artery without angina pectoris, unspecified vessel or lesion type, unspecified whether [place] or transplanted heart Essential hypertension Unspecified essential hypertension Pure hypercholesterolemia Chronic systolic heart failure (HCC) Chronic systolic heart failure Pseudophakia of both eyes- Primary Lens replaced by other means 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, right eye, intermediate dry stage Strabismus Unspecified disorder of eye movements documented in this encounter [facility] note* Diagnosis Pre-op evaluation- Primary Preoperative examination, unspecified Benign prostatic hyperplasia without urinary obstruction Type 2 diabetes mellitus without complication, unspecified whether rat exterminator insulin use (HCC) Pure hypercholesterolemia Essential hypertension Unspecified essential hypertension Persistent atrial fibrillation (HCC) Atrial fibrillation Atherosclerosis of coronary artery without angina pectoris, unspecified vessel or lesion type, unspecified whether [place] or transplanted heart Pre-op examination- Primary Preoperative examination, unspecified Abnormal finding of blood chemistry, unspecified Benign prostatic hyperplasia without urinary obstruction Type 2 diabetes mellitus without complication, unspecified whether rat exterminator insulin use (HCC) Persistent atrial fibrillation (HCC) Atrial fibrillation Atherosclerosis of coronary artery without angina pectoris, unspecified vessel or lesion type, unspecified whether [place] or transplanted heart Essential hypertension Unspecified essential hypertension Pure hypercholesterolemia Chronic systolic heart failure (HCC) Chronic systolic heart failure Pseudophakia of both eyes- Primary Lens replaced by other means 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, right eye, intermediate dry stage Strabismus Unspecified disorder of eye movements documented in this encounter [facility] note* Diagnosis Pre-op evaluation- Primary Preoperative examination, unspecified Benign prostatic hyperplasia without urinary obstruction Type 2 diabetes mellitus without complication, unspecified whether rat exterminator insulin use (HCC) Pure hypercholesterolemia Essential hypertension Unspecified essential hypertension Persistent atrial fibrillation (HCC) Atrial fibrillation Atherosclerosis of coronary artery without angina pectoris, unspecified vessel or lesion type, unspecified whether [place] or transplanted heart Pre-op examination- Primary Preoperative examination, unspecified Abnormal finding of blood chemistry, unspecified Benign prostatic hyperplasia without urinary obstruction Type 2 diabetes mellitus without complication, unspecified whether rat exterminator insulin use (HCC) Persistent atrial fibrillation (HCC) Atrial fibrillation Atherosclerosis of coronary artery without angina pectoris, unspecified vessel or lesion type, unspecified whether [place] or transplanted heart Essential hypertension Unspecified essential hypertension Pure hypercholesterolemia Chronic systolic heart failure (HCC) Chronic systolic heart failure Exudative age-related macular degeneration of left eye with active choroidal neovascularization (HCC)- Primary documented in this encounter [facility] note* Diagnosis Pre-op evaluation- Primary Preoperative examination, unspecified Benign prostatic hyperplasia without urinary obstruction Type 2 diabetes mellitus without complication, unspecified whether rat exterminator insulin use (HCC) Pure hypercholesterolemia Essential hypertension Unspecified essential hypertension Persistent atrial fibrillation (HCC) Atrial fibrillation Atherosclerosis of coronary artery without angina pectoris, unspecified vessel or lesion type, unspecified whether [place] or transplanted heart Pre-op examination- Primary Preoperative examination, unspecified Abnormal finding of blood chemistry, unspecified Benign prostatic hyperplasia without urinary obstruction Type 2 diabetes mellitus without complication, unspecified whether prison insulin use (HCC) Persistent atrial fibrillation (HCC) Atrial fibrillation Atherosclerosis of coronary artery without angina pectoris, unspecified vessel or lesion type, unspecified whether [place] or transplanted heart Essential hypertension Unspecified essential hypertension Pure hypercholesterolemia Chronic systolic heart failure (HCC) Chronic systolic heart failure Exudative age-related macular degeneration of left eye with active choroidal neovascularization (HCC)- Primary documented in this encounter [facility] note* Diagnosis Pre-op evaluation- Primary Preoperative examination, unspecified Benign prostatic hyperplasia without urinary obstruction Type 2 diabetes mellitus without complication, unspecified whether rat exterminator insulin use (HCC) Pure hypercholesterolemia Essential hypertension Unspecified essential hypertension Persistent atrial fibrillation (HCC) Atrial fibrillation Atherosclerosis of coronary artery without angina pectoris, unspecified vessel or lesion type, unspecified whether [place] or transplanted heart Pre-op examination- Primary Preoperative examination, unspecified Abnormal finding of blood chemistry, unspecified Benign prostatic hyperplasia without urinary obstruction Type 2 diabetes mellitus without complication, unspecified whether rat exterminator insulin use (HCC) Persistent atrial fibrillation (HCC) Atrial fibrillation Atherosclerosis of coronary artery without angina pectoris, unspecified vessel or lesion type, unspecified whether [place] or transplanted heart Essential hypertension Unspecified essential hypertension Pure hypercholesterolemia Chronic systolic heart failure (HCC) Chronic systolic heart failure Exudative age-related macular degeneration of left eye with active choroidal neovascularization (HCC) documented in this encounter [facility] Summary Purpose Family History No Family History Records FoundNo Family History Records FoundNo Family History Records FoundNo Family History Records FoundNo Family History Records FoundNo Family History Records FoundNo Family History Records FoundNo Family History Records FoundNo Family History Records Found Advance Directives No Advanced Directives Records Found Date Activated Date Inactivated Comments 07/19/2023 4:06 PM 07/29/2023 4:37 PM Date Activated Date Inactivated Comments 07/12/2023 4:23 PM 07/19/2023 3:58 PM Additional Source Comments (unrecognized sect ion and content) No Status Records FoundNo Status Records FoundNo Status Records FoundNo Status Records FoundNo Status Records FoundNo Status Records FoundNo Status Records FoundNo Status Records FoundNo Status Records Found INFORMATION SOURCE (unrecogn ized section and content) DATE CREATED AUTHOR 11/15/2017 [facility] DATE CREATED AUTHOR AUTHOR'S ORGANIZ ATION 05/21/2022 [facility] DATE CREATED AUTHOR AUTHOR'S ORGANIZ ATION 07/14/2022 [facility] DATE CREATED AUTHOR AUTHOR'S ORGANIZ ATION 10/29/2022 [facility] DATE CREATED AUTHOR AUTHOR'S ORGANIZ ATION 07/30/2023 [facility] DATE CREATED AUTHOR AUTHOR'S ORGANIZ ATION 09/08/2023 [facility] DATE CREATED AUTHOR AUTHOR'S ORGANIZ ATION 03/09/2024 [facility] DATE CREATED AUTHOR AUTHOR'S ORGANIZ ATION 03/30/2024 [facility] DATE CREATED AUTHOR AUTHOR'S ORGANIZ ATION 2024 [facility] Source Comments (unrecognize d section and content) In the event this informatio n is protected by the Federal Confidentiality of Alcohol and Drug Abuse Patient Records regulations: The Federal rules restrict any use of the information to criminally investigate or prosecute any alcohol or drug abuse patient.[facility] the event this information is protected by the Federal Confidentiality of Alcohol and Drug Abuse Patient Records regulations: The Federal rules restrict any use of the information to criminally investigate or prosecute any alcohol or drug abuse patient.[facility] the event this information is protected by the Federal Confidentiality of Alcohol and Drug Abuse Patient Records regulations: The Federal rules restrict any use of the information to criminally investigate or prosecute any alcohol or drug abuse patient.[facility] the event this information is protected by the Federal Confidentiality of Alcohol and Drug Abuse Patient Records regulations: The Federal rules restrict any use of the information to criminally investigate or prosecute any alcohol or drug abuse patient.[facility] the event this information is protected by the Federal Confidentiality of Alcohol and Drug Abuse Patient Records regulations: The Federal rules restrict any use of the information to criminally investigate or prosecute any alcohol or drug abuse patient.[facility] the event this information is protected by the Federal Confidentiality of Alcohol and Drug Abuse Patient Records regulations: The Federal rules restrict any use of the information to criminally investigate or prosecute any alcohol or drug abuse patient.[facility] the event this information is protected by the Federal Confidentiality of Alcohol and Drug Abuse Patient Records regulations: The Federal rules restrict any use of the information to criminally investigate or prosecute any alcohol or drug abuse patient.[facility] the event this information is protected by the Federal Confidentiality of Alcohol and Drug Abuse Patient Records regulations: The Federal rules restrict any use of the information to criminally investigate or prosecute any alcohol or drug abuse patient.[facility] the event this information is protected by the Federal Confidentiality of Alcohol and Drug Abuse Patient Records regulations: The Federal rules restrict any use of the information to criminally investigate or prosecute any alcohol or drug abuse patient.[facility] the event this information is protected by the Federal Confidentiality of Alcohol and Drug Abuse Patient Records regulations: The Federal rules restrict any use of the information to criminally investigate or prosecute any alcohol or drug abuse patient.[facility] the event this information is protected by the Federal Confidentiality of Alcohol and Drug Abuse Patient Records regulations: The Federal rules restrict any use of the information to criminally investigate or prosecute any alcohol or drug abuse patient.[facility] the event this information is protected by the Federal Confidentiality of Alcohol and Drug Abuse Patient Records regulations: The Federal rules restrict any use of the information to criminally investigate or prosecute any alcohol or drug abuse patient.[facility] the event this information is protected by the Federal Confidentiality of Alcohol and Drug Abuse Patient Records regulations: The Federal rules restrict any use of the information to criminally investigate or prosecute any alcohol or drug abuse patient.[facility] the event this information is protected by the Federal Confidentiality of Alcohol and Drug Abuse Patient Records regulations: The Federal rules restrict any use of the information to criminally investigate or prosecute any alcohol or drug abuse patient.[facility]In the event this information is protected by the Federal Confidentiality of Alcohol and Drug Abuse Patient Records regulations: The Federal rules restrict any use of the information to criminally investigate or prosecute any alcohol or drug abuse patient.[facility]In the event this information is protected by the Federal Confidentiality of Alcohol and Drug Abuse Patient Records regulations: The Federal rules restrict any use of the information to criminally investigate or prosecute any alcohol or drug abuse patient.[facility]In the event this information is protected by the Federal Confidentiality of Alcohol and Drug Abuse Patient Records regulations: The Federal rules restrict any use of the information to criminally investigate or prosecute any alcohol or drug abuse patient.[facility]In the event this information is protected by the Federal Confidentiality of Alcohol and Drug Abuse Patient Records regulations: The Federal rules restrict any use of the information to criminally investigate or prosecute any alcohol or drug abuse patient.[facility]In the event this information is protected by the Federal Confidentiality of Alcohol and Drug Abuse Patient Records regulations: The Federal rules restrict any use of the information to criminally investigate or prosecute any alcohol or drug abuse patient.[facility] HospitalIn the event this information is protected by the Federal Confidentiality of Alcohol and Drug Abuse Patient Records regulations: The Federal rules restrict any use of the information to criminally investigate or prosecute any alcohol or drug abuse patient.[facility] Reason for Visit (unrecogniz ed section and content) Reason Comments Retinal Evaluation Reason Comments Cataract Evaluation Reason Comments Pre-Op Visit Reason Comments Neovascular Age related macular degenera tion Reason Comments Pre-Op Exam Ultrasound Both eyes Reason Comments Post-op Cataract OD 04.11.24 Reason Comments Nonexudative Macular Degeneration Reason Comments Medication Problem Reason Onset Date Comments Refill Request 05/03/2024 Reason Comments Cataract Evaluation Left Eye Reason Comments Pre-Op Exam Reason Comments Results Reason Comments Macular Degeneration Follow Up Reason Comments Post-op Cataract OS Reason Comments Post-Op Visit Reason Comments Nonexudative Macular Degeneration DT I L EFT EYE TODAY Reason Comments Neovascular Age related macular degenera tion, left eye Reason Comments Blood in Eye PT sattes went to e another eye doctor due to blurred vision OS on Tuesday and states they told him he had blood in his eye and he needed another shot. S/p Eylea 10/31/24 OS Flashes Left Eye X a few years and co mes and goes- worse when watching Tv. Or moving his eyes around Blurred Vision Left Eye Floaters Both Eyes States a big black s pot in his left eye- states ever since he started getting the shots. So a few years. States he has another one in his right eye but is not as solid as OS. Care Teams (unrecognized sec tion and content) Nurses Supervisor Relationship Specialty Start Date End Date Bridget Farley MD [address] [place] [id number] PCP - General Family Medicine 04/11/24 Nurses Supervisor Relationship Specialty Start Date End Date Bridget Farley MD [address] [place] [address] PCP - General Family Medicine 04/11/24 Nurses Supervisor Relationship Specialty Start Date End Date Bridget Farley MD [address] [place] [address] PCP - General Family Medicine 04/11/24 Nurses Supervisor Relationship Specialty Start Date End Date Bridget Farley MD [address] [place] [address] PCP - General Family Medicine 04/11/24 Nurses Supervisor Relationship Specialty Start Date End Date Bridget Farley MD [address] [place] [address] PCP - General Family Medicine 04/11/24 Nurses Supervisor Relationship Specialty Start Date End Date Bridget Farley MD [address] [place] [address] PCP - General Family Medicine 04/11/24 Nurses Supervisor Relationship Specialty Start Date End Date Bridget Farley MD [address] [place] [address] PCP - General Family Medicine 04/11/24 Nurses Supervisor Relationship Specialty Start Date End Date Bridget Farley MD [address] [place] [address] PCP - General Family Medicine 04/11/24 Nurses Supervisor Relationship Specialty Start Date End Date Bridget Farley MD [address] [place] [address] PCP - General Family Medicine 04/11/24 Nurses Supervisor Relationship Specialty Start Date End Date Bridget Farley MD [address] [place] [address] PCP - General Family Medicine 04/11/24 Nurses Supervisor Relationship Specialty Start Date End Date Bridget Farley MD [address] [place] [address] PCP - General Family Medicine 04/11/24 FOR RECORDS PERTAINING TO PATIENTS WHO ARE [...] BE BASED ON THE PRIMARY CLINICAL RECORDS. [employer] provides no warranty or guarantee of the accuracy or completeness of information in this document.
--- NOTE | 2025-01-22 12:18 | XR_ITS ---
The [address] [address] Patient Name: ELVIRA BERGMAN MRN: [id number] date: 1940 Sex: M Assigned Patient Location: LAB Current Patient Location: LAB Accession/Order Number: [id number] Exam Date: 01/22/2025 12:36 Report Date: 01/22/2025 13:03 At the request of: BRIDGET FARLEY MD Procedure: XR chest 1V PA CHEST: CLINICAL HISTORY: shortness of breath COMPARISON: 04/11/2022 The heart is borderline prominent. The hilar and mediastinal contours are similar. No vascular congestion is seen. The lungs are hyperinflated. There is minor basilar scarring or atelectasis. There is an area of subtle asymmetric groundglass density at the periphery of the left lower lung. No other consolidation is seen. There is no sizable effusion or pneumothorax. The bony structures are osteopenic. Dextroscoliotic curvature and endplate spurring are visualized. XR/XR chest 1V IMPRESSION: BORDERLINE CARDIOMEGALY. OBSTRUCTIVE LUNG DISEASE. MILD PARENCHYMAL CHANGES, DESCRIBED. Impression dictated by: Carri Clancy M.D. 01/22/2025 1:03 PM Dictation Location: [place] [address] Electronically authenticated by: [id number] Y Date: 01/22/2025 13:03
[2025-01-22 12:22] LABS: Hematocrit 40.2 % (42.0-54.0); Hemoglobin 13.1 g/dL (14.0-18.0); Immature Granulocytes Abs Auto 0.01 10^3/uL (0.00-0.03); Immature Granulocytes Pct Auto 0.1 % (0.0-0.5); Lymphocytes Absolute Auto 1.2 10^3/uL (1.2-3.8); Mean Corpuscular HGB Conc 32.6 g/dL (29.9-35.2); Mean Corpuscular Hemoglobin 32.2 pg (25.9-34.0); Mean Corpuscular Volume 98.8 fL (80.0-94.0); Platelet Count 222 10^3/uL (150-450); Red Blood Count 4.07 10^6/uL (4.70-6.10); White Blood Count 6.8 10^3/uL (4.0-11.0)
[2025-01-22 12:48] LABS: Alanine Aminotransferase 34 U/L (16-63); Albumin Globulin Ratio 1.0; Albumin Level 3.4 g/dL (3.4-5.0); Alkaline Phosphatase 108 U/L (46-116); Anion Gap 11.4; Aspartate Amino Transferase 16 U/L (15-37); Blood Urea Nitrogen 15.0 mg/dL (7.0-18.0); Calcium 8.8 mg/dL (8.5-10.1); Carbon Dioxide 28.7 mmol/L (21.0-32.0); Chloride 103 mmol/L (98-107); Estimated GFR (African America 57 (>=60 mL/min/1.73m^2); Estimated GFR (Non-African Ame 47 (>=60 mL/min/1.73m^2); Globulin 3.4 g/dL; Glucose 248 mg/dL (74-106); Potassium 5.1 mmol/L (3.5-5.1); Sodium 138 mmol/L (136-145); Total Protein 6.8 g/dL (6.4-8.2)
[2025-01-22 13:07] LABS: NT Pro B Type Natriuretic Pept 5038.0 pg/mL (<=1800.0)
== END 2025-01-22 11:57 | disposition home or self-care (01) ==
LOC: LAB 11:56
PROVIDERS: PCP Family Medicine; Visit Provider Family Medicine
DX: R06.02 Shortness of breath (principal); J44.9 Chronic obstructive pulmonary disease, unspecified; Z51.81 Encounter for therapeutic drug level monitoring; Z79.01 Long term (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 of anticoagulants; I48.0 Paroxysmal atrial fibrillation
CPT/HCPCS: 36415; 71045; 80053; 83880; 84484; 85025; 85610; G0463

== ENCOUNTER 2025-02-08 10:16 | Outpatient (OUT) | payer MEDICARE, OTHER, SELFPAY ==
--- OUTSIDE RECORDS SUMMARY | 2025-02-08 10:24 | XMS_ITS | CCD ---
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 Profileon 07-20-2023 Albumin [Mass/Vol] 3.1 g/dL Low 3.5-5.2 [facility] Comment on above: Performed By: #### L IVP, BMPX, PT, CDP ####[facility] Gxw9055 [facility] [place] [address] Lab Director: Dl Jean DO Alkaline Phos 126 U/L Normal 40-129 [facility] Comment on above: Performed By: #### L IVP, BMPX, PT, CDP ####[facility] Wzy0250 [facility] [place] [address] Lab Director: Dl Jean DO ALT [Catalytic activity/Vol] 73 U/L High 5-41 [facility] Comment on above: Performed By: #### L IVP, BMPX, PT, CDP ####[facility] Qtc0189 [facility] [place] [address] Lab Director: Dl Jean DO AST [Catalytic activity/Vol] 56 U/L High <40 [facility] Comment on above: Performed By: #### L IVP, BMPX, PT, CDP ####[facility] Olh2789 [facility] [place] [address] Lab Director: Dl Jean DO Bilirubin [Mass/Vol] 0.5 mg/dL Normal 0.3-1.2 [facility] Comment on above: Performed By: #### L IVP, BMPX, PT, CDP ####[facility] Ybx9343 [facility] [place] [address] Lab Director: Dl Jean DO Bilirubin, Indirect 0.3 mg/dL Normal 0.0-1.0 [facility] Comment on above: Performed By: #### L IVP, BMPX, PT, CDP ####[facility] [address] [place] [address] Lab Director: Dl Jean DO Bilirubin.indirec t [Mass/Vol] 0.2 mg/dL Normal <0.3 [facility] Comment on above: Performed By: #### L IVP, BMPX, PT, CDP ####[facility] [address] [place] [address] lab Director: Dl Jean DO Protein [Mass/Vol] 5.8 g/dL Low 6.4-8.3 [facility] Comment on above: Performed By: #### L IVP, BMPX, PT, CDP ####[facility] Vko1784 [facility] [place] [address] Lab Director: Dl Jean DO PTon 07-20-2023 INR Coag (PPP) [Relative time] 1.2 {INR} Normal [facility] Comment on above: Result Comment: Therapeutic Range: Moderate Anticoagulant Intensity: INR = 2.0-3.0 High Anticoagulant Intensity: INR = 2.5-3.5 Performed By: #### L IVP, BMPX, PT, CDP ####[facility] Wdq3586 [facility] [place] [address] Lab Director: Dl Jean DO PT Coag (PPP) [Time] 15.9 s High 11.8-14.6 [facility] Comment on above: Performed By: #### L IVP, BMPX, PT, CDP ####[facility] [address] [place] [address] lab Director: Dl Jean DO Glucose,Whole Bloodon 2023 Glucose [Mass/Vol] 254 mg/dL High 75-110 [facility] Glucose [Mass/Vol] 155 mg/dL High 75-110 [facility] PTon 07-19-2023 INR Coag (PPP) [Relative time] 1.3 {INR} Normal [facility] Comment on above: Result Comment: Therapeutic Range: Moderate Anticoagulant Intensity: INR = 2.0-3.0 High Anticoagulant Intensity: INR = 2.5-3.5 Performed By: #### P T ####[place], [place] [address])[phone] Director: Carlos Rowland MD PT Coag (PPP) [Time] 16.1 s High 11.7-14.9 [facility] Comment on above: Performed By: #### P T ####[address] [address])[phone] Director: Carlos Rowland MD Basic Metabolic Profon 07-183 Anion gap [Moles/Vol] 10 mmol/L Normal 9-17 [facility] Comment on above: Performed By: #### P T, CDP, BMP, MG, RIANNA ####[address] [address])[phone] Director: Carlos Rowland MD Calcium [Mass/Vol] 8.5 mg/dL Low 8.6-10.4 [facility] Comment on above: Performed By: #### P T, CDP, BMP, MG, RIANNA ####[address] [address])[phone] Director: Carlos Rowland MD Chloride [Moles/Vol] 104 mmol/L Normal 98-107 [facility] Comment on above: Performed By: #### P T, CDP, BMP, MG, RIANNA ####[facility] [address] [place] [address])[phone] Director: Carlos Rowland MD CO2 [Moles/Vol] 24 mmol/L Normal 20-31 [facility] Comment on above: Performed By: #### P T, CDP, BMP, MG, RIANNA ####[facility] Bdppumbvtmtt0408 [place] [address] Lab Director: Carlos Rowland MD Creatinine [Mass/Vol] 0.9 mg/dL Normal 0.7-1.2 [facility] Comment on above: Performed By: #### P T, CDP, BMP, MG, RIANNA ####[address] [address] Lab Director: Carlos Rowland MD GFR/1.73 sq M.predicted among non-blacks MDRD (S/P/Bld) [Vol rate/Area] mL/min/{1.73_m2} Normal >60 [facility] Comment on above: Result Comment: These results [...] #### P T, CDP, BMP, MG, RIANNA ####[facility] [address] [place] [address] Lab Director: Carlos Rowland MD Glucose [Mass/Vol] 121 mg/dL High 70-99 [facility] Comment on above: Performed By: #### P T, CDP, BMP, MG, RIANNA ####[facility] [address] [place] [address] Lab Director: Carlos Rowland MD Potassium [Moles/Vol] 4.4 mmol/L Normal 3.7-5.3 [facility] Comment on above: Performed By: #### P T, CDP, BMP, MG, RIANNA ####[facility] S[address]iox[address]368 [place] [address] Lab Director: Carlos Rowland MD Sodium [Moles/Vol] 138 mmol/L Normal 135-144 [facility] Comment on above: Performed By: #### P T, CDP, BMP, MG, RIANNA ####[facility] [address] [place], [place] [address])[phone] Director: Carlos Rowland MD Urea nitrogen [Mass/Vol] 19 mg/dL Normal 8-23 [facility] Comment on above: Performed By: #### P T, CDP, BMP, MG, RIANNA ####[facility] [address] [place], [place] [address])[phone] Director: Carlos Rowland MD CBC with Diffon 07-18-2023 Abs. Basophil 0.07 k/uL Normal 0.00-0.20 [facility] Comment on above: Performed By: #### P T, CDP, BMP, MG, RIANNA ####[place], [place] [address])[phone] Director: Carlos Rowland MD Abs.Imm.Granulocy te <0.03 Normal 0.00-0.30 [facility] Comment on above: Performed By: #### P T, CDP, BMP, MG, RIANNA ####[place], [place] [address])[phone] Director: Carlos Rowland MD Abs.Neutrophil (Seg) 5.21 k/uL Normal 1.50-8.10 [facility] Comment on above: Performed By: #### P T, CDP, BMP, MG, RIANNA ####[facility] [address] [place], [place] [address])[phone] Director: Carlos Rowland MD Basophils/100 WBC (Bld) 1 % Normal 0-2 [facility] Comment on above: Performed By: #### P T, CDP, BMP, MG, RIANNA ####[facility] [address] [place], [place] [address])[phone] Director: Carlos Rowland MD Eosinophils (Bld) [#/Vol] 0.14 10*3/uL Normal 0.00-0.44 [facility] Comment on above: Performed By: #### P T, CDP, BMP, MG, RIANNA ####[address] [id number])[phone] Director: Carlos Rowland MD Eosinophils/100 WBC (Bld) 2 % Normal 1-4 [facility] Comment on above: Performed By: #### P T, CDP, BMP, MG, RIANNA ####[address] [address])[phone] Director: Carlos Rowland MD Erythrocyte distribution width (RBC) [Ratio] 15.3 % High 11.8-14.4 [facility] Comment on above: Performed By: #### P T, CDP, BMP, MG, RIANNA ####[place], [place] [address])[phone] Director: Carlos Rowland MD Hematocrit (Bld) [Volume fraction] 31.7 % Low 40.7-50.3 [facility] Comment on above: Performed By: #### P T, CDP, BMP, MG, RIANNA ####[place], [place] [address])[phone] Director: Carlos Rowland MD Hemoglobin (Bld) [Mass/Vol] 10.4 g/dL Low 13.0-17.0 [facility] Comment on above: Performed By: #### P T, CDP, BMP, MG, RIANNA ####[facility] [address] [place] [address])[phone] Director: Carlos Rowland MD Immature granulocytes/100 WBC (Bld) 0 % Normal 0 [facility] Comment on above: Performed By: #### P T, CDP, BMP, MG, RIANNA ####[address] [address])[phone] Director: Carlos Rowland MD Lymphocytes (Bld) [#/Vol] 1.29 10*3/uL Normal 1.10-3.70 [facility] Comment on above: Performed By: #### P T, CDP, BMP, MG, RIANNA ####[facility] [address] [place], [place] [address])[phone] Director: Carlos Rowland MD Lymphocytes/100 WBC (Bld) 17 % Low 24-43 [facility] Comment on above: Performed By: #### P T, CDP, BMP, MG, RIANNA ####[facility] [address] [place], [place] [address])[phone] Director: Carlos Rowland MD MCH (RBC) [Entitic mass] 30.3 pg Normal 25.2-33.5 [facility] Comment on above: Performed By: #### P T, CDP, BMP, MG, RIANNA ####[facility] [address] [place], [place] [address])[phone] Director: Carlos Rowland MD MCHC (RBC) [Mass/Vol] 32.8 g/dL Normal 28.4-34.8 [facility] Comment on above: Performed By: #### P T, CDP, BMP, MG, RIANNA ####[facility] [address] [place], [place] [address])[phone] Director: Carlos Rowland MD MCV (RBC) [Entitic vol] 92.4 fL Normal 82.6-102.9 [facility] Comment on above: Performed By: #### P T, CDP, BMP, MG, RIANNA ####[facility] [address] [place], [place] [address])[phone] Director: Carlos Rowland MD Monocytes (Bld) [#/Vol] 0.81 10*3/uL Normal 0.10-1.20 [facility] Comment on above: Performed By: #### P T, CDP, BMP, MG, RIANNA ####[facility] [address]pg1754 [place], [place] [phone])[phone] Director: Carlos Rowland MD Monocytes/100 WBC (Bld) 11 % Normal 3-12 [facility] Comment on above: Performed By: #### P T, CDP, BMP, MG, RIANNA ####[facility] Wkkhdnwugkjn8996 [place], [place] [phone])[phone] Director: Carlos Rowland MD Neutrophil (Seg) 69 % High 36-65 [facility] Comment on above: Performed By: #### P T, CDP, BMP, MG, RIANNA ####[facility] Eihyttvrhmsk3995 [place], [place] [id number])[phone] Director: Carlos Rowland MD NRBC Automated 0.0 per 100 WBC Normal 0.0 [facility] Comment on above: Performed By: #### P T, CDP, BMP, MG, RIANNA ####[facility] Tolkg[address]znyxxr8906 [place], [place] [id number])[phone] Director: Carlos Rowland MD Platelet mean volume (Bld) [Entitic vol] 9.8 fL Normal 8.1-13.5 [facility] Comment on above: Performed By: #### P T, CDP, BMP, MG, RIANNA ####[facility] [address]wojtkstm[address]16 [place], [place] [phone])[phone] Director: Carlos Rowland MD Platelets (Bld) [#/Vol] 238 10*3/uL Normal 138-453 [facility] Comment on above: Performed By: #### P T, CDP, BMP, MG, RIANNA ####[facility] [address] [place], [place] [id number])[phone] Director: Carlos Rowland MD RBC (Bld) [#/Vol] 3.43 10*6/uL Low 4.21-5.77 [facility] Comment on above: Performed By: #### P T, CDP, BMP, MG, RIANNA ####[facility] [address] [place] [address] Lab Director: Carlos Rowland MD RBC morphology finding Nom (Bld) ANISOCYTOSIS PRESENT Normal [facility] Comment on above: Performed By: #### P T, CDP, BMP, MG, RIANNA ####[facility] [address]jcpbip[address]657 [place] [address] lab Director: Carlos Rowland MD WBC (Bld) [#/Vol] 7.5 10*3/uL Normal 3.5-11.3 [facility] Comment on above: Performed By: #### P T, CDP, BMP, MG, RIANNA ####[facility] [address]flx[address]115 [place] [address] lab Director: Carlos Rowland MD Cult,Bloodon 07-18-2023 Cult,Blood Specimen Description .BLOOD Special Requests RT HAND 1 ML Culture NO GROWTH 5 DAYS Report Status FINAL 07/18/2023 Normal [facility] Comment on above: Performed By: #### B C ####[facility] [address]clobw[address]2 [place] [address] lab Director: Carlos Rowland MD Cult,Blood Specimen Description .BLOOD Special Requests LEFT HAND 1 ML Culture NO GROWTH 5 DAYS Report Status FINAL 07/18/2023 Normal [facility] Comment on above: Performed By: #### B C ####[facility] [address] [place] [address] Lab Director: Carlos Rowland MD Glucose,Whole Bloodon 2023 Glucose [Mass/Vol] 255 mg/dL High 75-110 [facility] Glucose [Mass/Vol] 311 mg/dL High 75-110 [facility] Glucose [Mass/Vol] 142 mg/dL High 75-110 [facility] Glucose [Mass/Vol] 312 mg/dL High 75-110 [facility] Glucose [Mass/Vol] 178 mg/dL High 75-110 [facility] Glucose [Mass/Vol] 167 mg/dL High 75-110 [facility] Magnesiumon 07-18-2023 Magnesium [Mass/Vol] 1.9 mg/dL Normal 1.6-2.6 [facility] Comment on above: Performed By: #### P T, CDP, BMP, MG, RIANNA ####[facility] [address]6 [place] [address] Lab Director: Carlos Rowland MD PTon 07-18-2023 INR Coag (PPP) [Relative time] 1.3 {INR} Normal [facility] Comment on above: Result Comment: Therapeutic Range: Moderate Anticoagulant Intensity: INR = 2.0-3.0 High Anticoagulant Intensity: INR = 2.5-3.5 Performed By: #### P T, CDP, BMP, MG, RIANNA ####[facility] [address] [place] [address] Lab Director: Carlos Rowland MD PT Coag (PPP) [Time] 15.8 s High 11.7-14.9 [facility] Comment on above: Performed By: #### P T, CDP, BMP, MG, RIANNA ####[facility] [address] [place] [address] Lab Director: Carlos Rowland MD Phosphorus, Inorg.on 024 Phosphorus, Inorg. 3.6 mg/dL Normal 2.5-4.5 [facility] Comment on above: Performed By: #### P T, CDP, BMP, MG, RIANNA ####[facility] Knd[address]uzazqdeh[address]3 [place] [address] Lab Director: Carlos Rowland MD Basic Metabolic Profon 07-17 Anion gap [Moles/Vol] 8 mmol/L Low - [facility] Comment on above: Performed By: #### C DP, BMP, MG, RIANNA, PT ####[facility] [address] [place] [address] Lab Director: Carlos Rowland MD Calcium [Mass/Vol] 8.6 mg/dL Normal 8.6-10.4 [facility] Comment on above: Performed By: #### C DP, BMP, MG, RIANNA, PT ####[facility] Vl[address] [place], [place] [id number])[phone] Director: Carlos Rowland MD Chloride [Moles/Vol] 102 mmol/L Normal 98-107 [facility] Comment on above: Performed By: #### C DP, BMP, MG, RIANNA, PT ####[facility] [address] [place], [place] [id number])[phone] Director: Carlos Rowland MD CO2 [Moles/Vol] 23 mmol/L Normal 20-31 [facility] Comment on above: Performed By: #### C DP, BMP, MG, RIANNA, PT ####[address] [address] Lab Director: Carlos Rowland MD Creatinine [Mass/Vol] 0.9 mg/dL Normal 0.7-1.2 [facility] Comment on above: Performed By: #### C DP, BMP, MG, RIANNA, PT ####[address] [id number])[phone] Director: Carlos Rowland MD GFR/1.73 sq M.predicted among non-blacks MDRD (S/P/Bld) [Vol rate/Area] mL/min/{1.73_m2} Normal >60 [facility] Comment on above: Result Comment: These results [...] #### C DP, BMP, MG, RIANNA, PT ####[facility] [address] Lab Director: Carlos Rowland MD Glucose [Mass/Vol] 169 mg/dL High 70-99 [facility] Comment on above: Performed By: #### C DP, BMP, MG, RIANNA, PT ####[address] [address] Lab Director: Carlos Rowland MD Potassium [Moles/Vol] 4.8 mmol/L Normal 3.7-5.3 [facility] Comment on above: Performed By: #### C DP, BMP, MG, RIANNA, PT ####[address] [address])[phone] Director: Carlos Rowland MD Sodium [Moles/Vol] 133 mmol/L Low 135-144 [facility] Comment on above: Performed By: #### C DP, BMP, MG, RIANNA, PT ####[address] [address])[phone] Director: Carlos Rowland MD Urea nitrogen [Mass/Vol] 22 mg/dL Normal 8-23 [facility] Comment on above: Performed By: #### C DP, BMP, MG, RIANNA, PT ####[address] [address])[phone] Director: Carlos Rowland MD CBC with Diffon 07-17-2023 Abs. Basophil 0.09 k/uL Normal 0.00-0.20 [facility] Comment on above: Performed By: #### C DP, BMP, MG, RIANNA, PT ####[facility] [address] [place] [address])[phone] Director: Carlos Rowland MD Abs.Imm.Granulocy te 0.04 k/uL Normal 0.00-0.30 [facility] Comment on above: Performed By: #### C DP, BMP, MG, RIANNA, PT ####[facility] Pbzdf[address]af33[address] [place], [place] [address])[phone] Director: Carlos Rowland MD Abs.Neutrophil (Seg) 5.58 k/uL Normal 1.50-8.10 [facility] Comment on above: Performed By: #### C DP, BMP, MG, RIANNA, PT ####[facility] [address] [place], [place] [address])[phone] Director: Carlos Rowland MD Basophils/100 WBC (Bld) 1 % Normal 0-2 [facility] Comment on above: Performed By: #### C DP, BMP, MG, RIANNA, PT ####[facility] HospitalCircular EnergyCugghbhqtcpg[address] [place], [place] [address])[phone] Director: Carlos Rowland MD Eosinophils (Bld) [#/Vol] 0.16 10*3/uL Normal 0.00-0.44 [facility] Comment on above: Performed By: #### C DP, BMP, MG, RIANNA, PT ####[facility] [address] [place], [place] [address])[phone] Director: Carlos Rowland MD Eosinophils/100 WBC (Bld) 2 % Normal 1-4 [facility] Comment on above: Performed By: #### C DP, BMP, MG, RIANNA, PT ####[facility] HospitalCircular EnergyHrqfizxfafsv[address] [place], [place] [address])[phone] Director: Carols Rowland MD Erythrocyte distribution width (RBC) [Ratio] 15.3 % High 11.8-14.4 [facility] Comment on above: Performed By: #### C DP, BMP, MG, RIANNA, PT ####[facility] [address]insf[address] [place], [place] [address])[phone] Director: Carlos Rowland MD Hematocrit (Bld) [Volume fraction] 35.8 % Low 40.7-50.3 [facility] Comment on above: Performed By: #### C DP, BMP, MG, RIANNA, PT ####[facility] [address]ams[address] [place], [place] [address])[phone] Director: Carlos Rowland MD Hemoglobin (Bld) [Mass/Vol] 11.2 g/dL Low 13.0-17.0 [facility] Comment on above: Performed By: #### C DP, BMP, MG, RIANNA, PT ####[facility] L[address]ucinvdf[address] [place], [place] [address])[phone] Director: Carlos Rowland MD Immature granulocytes/100 WBC (Bld) 1 % High 0 [facility] Comment on above: Performed By: #### C DP, BMP, MG, RIANNA, PT ####[facility] [address]sw[address] [place], [place] [address])[phone] Director: Carlos Rowland MD Lymphocytes (Bld) [#/Vol] 1.11 10*3/uL Normal 1.10-3.70 [facility] Comment on above: Performed By: #### C DP, BMP, MG, RIANNA, PT ####[facility] [address] [place], [place] [address])[phone] Director: Carlos Rowland MD Lymphocytes/100 WBC (Bld) 14 % Low 24-43 [facility] Comment on above: Performed By: #### C DP, BMP, MG, RIANNA, PT ####[facility] [address] [place], [place] [address])[phone] Director: Carlos Rowland MD MCH (RBC) [Entitic mass] 29.4 pg Normal 25.2-33.5 [facility] Comment on above: Performed By: #### C DP, BMP, MG, RIANNA, PT ####[facility] [address] [place], [place] [address])[phone] Director: Carlos Rowland MD MCHC (RBC) [Mass/Vol] 31.3 g/dL Normal 28.4-34.8 [facility] Comment on above: Performed By: #### C DP, BMP, MG, RIANNA, PT ####[facility] [address] [place], [place] [address])[phone] Director: Carlos Rowland MD MCV (RBC) [Entitic vol] 94.0 fL Normal 82.6-102.9 [facility] Comment on above: Performed By: #### C DP, BMP, MG, RIANNA, PT ####[facility] [address] [place], [place] [address])[phone] Director: Carlos Rowland MD Monocytes (Bld) [#/Vol] 0.74 10*3/uL Normal 0.10-1.20 [facility] Comment on above: Performed By: #### C DP, BMP, MG, RIANNA, PT ####[place], [place] [address])[phone] Director: Carlos Rowland MD Monocytes/100 WBC (Bld) 10 % Normal 3-12 [facility] Comment on above: Performed By: #### C DP, BMP, MG, RIANNA, PT ####[place], [place] [address])[phone] Director: Carlos Rowland MD Neutrophil (Seg) 72 % High 36-65 [facility] Comment on above: Performed By: #### C DP, BMP, MG, RIANNA, PT ####[place], [place] [address])[phone] Director: Carlos Rowland MD NRBC Automated 0.0 per 100 WBC Normal 0.0 [facility] Comment on above: Performed By: #### C DP, BMP, MG, RIANNA, PT ####[place], [place] [address])[phone] Director: Carlos Rowland MD Platelet mean volume (Bld) [Entitic vol] 9.7 fL Normal 8.1-13.5 [facility] Comment on above: Performed By: #### C DP, BMP, MG, RIANNA, PT ####[facility] Fkdbzlhptfcb2414 [place], [place] [id number])[phone] Director: Carlos Rowland MD Platelets (Bld) [#/Vol] 235 10*3/uL Normal 138-453 [facility] Comment on above: Performed By: #### C DP, BMP, MG, RIANNA, PT ####[facility] Lvuexo[address]evv[address]78 [place], [place] [address])[phone] Director: Carlos Rowland MD RBC (Bld) [#/Vol] 3.81 10*6/uL Low 4.21-5.77 [facility] Comment on above: Performed By: #### C DP, BMP, MG, RIANNA, PT ####[facility] Fgqxyzdpxncd1198 [place], [place] 41997419)[phone] Director: Carlos Rowland MD RBC morphology finding Nom (Bld) ANISOCYTOSIS PRESENT Normal [facility] Comment on above: Performed By: #### C DP, BMP, MG, RIANNA, PT ####[facility] [address]uqqks[address] [place], [place] 42927419)[phone] Director: Carlos Rowland MD WBC (Bld) [#/Vol] 7.7 10*3/uL Normal 3.5-11.3 [facility] Comment on above: Performed By: #### C DP, BMP, MG, RIANNA, PT ####[facility] [address]ptery[address]qi[address] [place], [place] 45584419)[phone] Director: Carlos Rowland MD Glucose,Whole Bloodon 2023 Glucose [Mass/Vol] 251 mg/dL High 75-110 [facility] Glucose [Mass/Vol] 185 mg/dL High 75-110 [facility] Glucose [Mass/Vol] 293 mg/dL High 75-110 [facility] Magnesiumon 07-17-2023 Magnesium [Mass/Vol] 1.9 mg/dL Normal 1.6-2.6 [facility] Comment on above: Performed By: #### C DP, BMP, MG, RIANNA, PT ####[facility] [address]vtcymq[address] [place] [address] Lab Director: Carlos Rowland MD PTon 07-17-2023 INR Coag (PPP) [Relative time] 1.2 {INR} Normal [facility] Comment on above: Result Comment: Therapeutic Range: Moderate Anticoagulant Intensity: INR = 2.0-3.0 High Anticoagulant Intensity: INR = 2.5-3.5 Performed By: #### C DP, BMP, MG, RIANNA, PT ####[facility] HospitalCircular EnergyOpbixufkpdjd3876 [place], [place] [address])[phone] Director: Carlos Rowland MD PT Coag (PPP) [Time] 14.9 s Normal 11.7-14.9 [facility] Comment on above: Performed By: #### C DP, BMP, MG, RIANNA, PT ####[facility] [address] [place], [place] [address])[phone] Director: Carlos Rowland MD Phosphorus, Inorg.on 024 Phosphorus, Inorg. 3.1 mg/dL Normal 2.5-4.5 [facility] Comment on above: Performed By: #### C DP, BMP, MG, RIANNA, PT ####[facility] HospitalCircular EnergySfogrtsbckeu8795 [place], [place] [address])[phone] Director: Carlos Rowland MD Basic Metabolic Profon 07-16 Anion gap [Moles/Vol] 11 mmol/L Normal 9-17 [facility] Comment on above: Performed By: #### LUZ MARIA MERCHANT #### [facility] [address] [place] [address] Pizzamaker: Carlos Rowland MD Calcium [Mass/Vol] 8.3 mg/dL Low 8.6-10.4 [facility] Comment on above: Performed By: #### LUZ MARIA MERCHANT #### [facility] [address] [place] [address] Pizzamaker: Carlos Rowland MD Chloride [Moles/Vol] 103 mmol/L Normal 98-107 [facility] Comment on above: Performed By: #### U AX UMICAO #### [facility] [address] [place] [address] Pizzamaker: Carlos Rowland MD CO2 [Moles/Vol] 22 mmol/L Normal 20-31 [facility] Comment on above: Performed By: #### U AX UMICAO #### [facility] [address] [place] [address] Pizzamaker: Carlos Rowland MD Creatinine [Mass/Vol] 1.0 mg/dL Normal 0.7-1.2 [facility] Comment on above: Performed By: #### U AXJAMMIEO #### [facility] [address] [place] [address] Pizzamaker: Carlos Rowland MD GFR/1.73 sq M.predicted among non-blacks MDRD (S/P/Bld) [Vol rate/Area] mL/min/{1.73_m2} Normal >60 [facility] Comment on above: Result Comment: These results [...] secretion. Performed By: #### U AXJUSTINAICAO #### [facility] [address] [place] [address] Pizzamaker: Carlos Rowland MD Glucose [Mass/Vol] 160 mg/dL High 70-99 [facility] Comment on above: Performed By: #### U AXJAMMIEO #### [employer] [facility] [place] [address] Pizzamaker: Carlos Rowland MD Potassium [Moles/Vol] 4.3 mmol/L Normal 3.7-5.3 [facility] Comment on above: Performed By: #### U AX UMICAO #### [address] [address] Pizzamaker: Carlos Rowland MD Sodium [Moles/Vol] 136 mmol/L Normal 135-144 [facility] Comment on above: Performed By: #### U AX UMICAO #### [facility] [address] [place] [address] Pizzamaker: Carlos Rowland MD Urea nitrogen [Mass/Vol] 23 mg/dL Normal 8-23 [facility] Comment on above: Performed By: #### U JUSTINA MCQUEENICAO #### [facility] [address] [place] [address] Pizzamaker: Carlos Rowland MD CBC with Diffon 07-16-2023 Abs. Basophil 0.07 k/uL Normal 0.00-0.20 [facility] Comment on above: Performed By: #### U AX UMICAO #### [facility] [address] [place] [address] Pizzamaker: Carlos Rowland MD Abs.Imm.Granulocy te 0.04 k/uL Normal 0.00-0.30 [facility] Comment on above: Performed By: #### U AX UMICAO #### [facility] [address] [place] [address] Pizzamaker: Carlos Rowland MD Abs.Neutrophil (Seg) 7.16 k/uL Normal 1.50-8.10 [facility] Comment on above: Performed By: #### U AX UMICAO #### [facility] [address] [place] [address] Pizzamaker: Carlos Rowland MD Basophils/100 WBC (Bld) 1 % Normal 0-2 [facility] Comment on above: Performed By: #### U AX, UMICAO #### [facility] [address] [place] [address] Pizzamaker: Carlos Rowland MD Eosinophils (Bld) [#/Vol] 0.19 10*3/uL Normal 0.00-0.44 [facility] Comment on above: Performed By: #### U AX, UMICAO #### [address] [address] Pizzamaker: Carlos Rowland MD Eosinophils/100 WBC (Bld) 2 % Normal 1-4 [facility] Comment on above: Performed By: #### U AX, UMICAO #### [facility] [address] [place] [address] Pizzamaker: Carlos Rowland MD Erythrocyte distribution width (RBC) [Ratio] 15.2 % High 11.8-14.4 [facility] Comment on above: Performed By: #### U AX, UMICAO #### [facility] [address] [place] [address] Pizzamaker: Carlos Rowland MD Hematocrit (Bld) [Volume fraction] 35.9 % Low 40.7-50.3 [facility] Comment on above: Performed By: #### U AX, UMICAO #### [facility] [address] [place] [address] Pizzamaker: Carlos Rowland MD Hemoglobin (Bld) [Mass/Vol] 11.2 g/dL Low 13.0-17.0 [facility] Comment on above: Performed By: #### U AX, UMICAO #### [facility] [address] [place] [address] Pizzamaker: Carlos Rowland MD Immature granulocytes/100 WBC (Bld) 0 % Normal 0 [facility] Comment on above: Performed By: #### U AXLUZ MARIA #### [address] [address] Pizzamaker: Carlos Rowland MD Lymphocytes (Bld) [#/Vol] 1.36 10*3/uL Normal 1.10-3.70 [facility] Comment on above: Performed By: #### U AXJAMMIEO #### [facility] [address] [place] [address] Pizzamaker: Carlos Rowland MD Lymphocytes/100 WBC (Bld) 14 % Low 24-43 [facility] Comment on above: Performed By: #### U AXJUSTINAICAO #### [address] [address] Pizzamaker: Carlos Rowland MD MCH (RBC) [Entitic mass] 29.9 pg Normal 25.2-33.5 [facility] Comment on above: Performed By: #### U AXLUZ MARIA #### [facility] [address] [place] [address] Pizzamaker: Carlos Rowland MD MCHC (RBC) [Mass/Vol] 31.2 g/dL Normal 28.4-34.8 [facility] Comment on above: Performed By: #### U AXJUSTINAICAO #### [facility] [address] [place] [address] Pizzamaker: Carlos Rowland MD MCV (RBC) [Entitic vol] 96.0 fL Normal 82.6-102.9 [facility] Comment on above: Performed By: #### U AX UMICAO #### [facility] [address] [place] [address] Pizzamaker: Carlos Rowland MD Monocytes (Bld) [#/Vol] 0.92 10*3/uL Normal 0.10-1.20 [facility] Comment on above: Performed By: #### U AX, UMICAO #### [address] [address] Pizzamaker: Carlos Rowland MD Monocytes/100 WBC (Bld) 9 % Normal 3-12 [facility] Comment on above: Performed By: #### U AX UMICAO #### [address] [address] Pizzamaker: Carlos Rowland MD Neutrophil (Seg) 74 % High 36-65 [facility] Comment on above: Performed By: #### U AX UMICAO #### [address] [address] Pizzamaker: Carlos Rowland MD NRBC Automated 0.0 per 100 WBC Normal 0.0 [facility] Comment on above: Performed By: #### U AX UMICAO #### [address] [address] Pizzamaker: Carlos Rowland MD Platelet mean volume (Bld) [Entitic vol] 9.9 fL Normal 8.1-13.5 [facility] Comment on above: Performed By: #### U AXJUSTINAICAO #### [address] [address] Pizzamaker: Carlos Rowland MD Platelets (Bld) [#/Vol] 223 10*3/uL Normal 138-453 [facility] Comment on above: Performed By: #### U AX UMICAO #### [address] [address] Pizzamaker: Carlos Rowland MD RBC (Bld) [#/Vol] 3.74 10*6/uL Low 4.21-5.77 [facility] Comment on above: Performed By: #### U AXJAMMIEO #### [facility] [address] [place] [address] Pizzamaker: Carlos Rowland MD RBC morphology finding Nom (Bld) ANISOCYTOSIS PRESENT Normal [facility] Comment on above: Performed By: #### U AX UMICAO #### [facility] [address] [place] [address] Pizzamaker: Carlos Rowland MD WBC (Bld) [#/Vol] 9.7 10*3/uL Normal 3.5-11.3 [facility] Comment on above: Performed By: #### U AXJAMMIEO #### [facility] [address] [place] [address] Pizzamaker: Carlos Rowland MD Glucose,Whole Bloodon 2023 Glucose [Mass/Vol] 220 mg/dL High 75-110 [facility] Glucose [Mass/Vol] 156 mg/dL High 75-110 [facility] Glucose [Mass/Vol] 267 mg/dL High 75-110 [facility] Glucose [Mass/Vol] 167 mg/dL High 75-110 [facility] Magnesiumon 07-16-2023 Magnesium [Mass/Vol] 2.0 mg/dL Normal 1.6-2.6 [facility] Comment on above: Performed By: #### U AXJUSTINAICAO #### [facility] [address] [place] [address] Pizzamaker: Cralos Rowland MD PTon 07-16-2023 INR Coag (PPP) [Relative time] 1.3 {INR} Normal [facility] Comment on above: Result Comment: Therapeutic Range: Moderate Anticoagulant Intensity: INR = 2.0-3.0 High Anticoagulant Intensity: INR = 2.5-3.5 Performed By: #### U AX UMICAO #### [facility] [address] [place] [address] Pizzamaker: Carlos Rowland MD PT Coag (PPP) [Time] 15.9 s High 11.7-14.9 [facility] Comment on above: Performed By: #### U LUZ MARIA MCQUEEN #### [facility] [address] [place] [address] Pizzamaker: Carlos Rowland MD Phosphorus, Inorg.on 024 Phosphorus, Inorg. 3.3 mg/dL Normal 2.5-4.5 [facility] Comment on above: Performed By: #### LUZ MARIA MERCHANT #### [facility] [address] [place] [address] Pizzamaker: Carlos Rowland MD Basic Metabolic Profon 07-15 Anion gap [Moles/Vol] 12 mmol/L Normal 9-17 [facility] Comment on above: Performed By: #### M G, CDP, BMP, RIANNA ####[facility] [address] [place] [address] Lab Director: Carlos Rowland MD Calcium [Mass/Vol] 8.5 mg/dL Low 8.6-10.4 [facility] Comment on above: Performed By: #### M G, CDP, BMP, IRANNA ####[facility] [address]vm[address]upkdp2883 [place] [address] Lab Director: Carlos Rowland MD Chloride [Moles/Vol] 102 mmol/L Normal 98-107 [facility] Comment on above: Performed By: #### M G, CDP, BMP, RIANNA ####[facility] [address] [place] [address] Lab Director: Carlos Rowland MD CO2 [Moles/Vol] 19 mmol/L Low 20-31 [facility] Comment on above: Performed By: #### M G, CDP, BMP, RIANNA ####[facility] [address] [place] [address] Lab Director: Carlos Rowland MD Creatinine [Mass/Vol] 1.1 mg/dL Normal 0.7-1.2 [facility] Comment on above: Performed By: #### M G, CDP, BMP, RIANNA ####[facility] [address] [place] [address] Lab Director: Carlos Rowland MD GFR/1.73 sq M.predicted among non-blacks MDRD (S/P/Bld) [Vol rate/Area] mL/min/{1.73_m2} Normal >60 [facility] Comment on above: Result Comment: These results [...] renal tubular secretion. Performed By: #### M G, CDP, BMP, RIANNA ####[facility] [address] [place] [address] Lab Director: Carlos Rowland MD Glucose [Mass/Vol] 154 mg/dL High 70-99 [facility] Comment on above: Performed By: #### M G, CDP, BMP, RIANNA ####[facility] [address] [place] [address] Lab Director: Carlos Rowland MD Potassium [Moles/Vol] 4.3 mmol/L Normal 3.7-5.3 [facility] Comment on above: Performed By: #### M G, CDP, BMP, RIANNA ####[facility] [address] [place] [address] Lab Director: Carlos Rowland MD Sodium [Moles/Vol] 133 mmol/L Low 135-144 [facility] Comment on above: Performed By: #### M G, CDP, BMP, RIANNA ####[facility] [address] [place], [place] [address])[phone] Director: Carlos Rowland MD Urea nitrogen [Mass/Vol] 27 mg/dL High - [facility] Comment on above: Performed By: #### M G, CDP, BMP, RIANNA ####[facility] [address]br[address] [place], [place] [address])[phone] Director: Carlos Rowland MD CBC with Diffon 07-15-2023 Abs. Basophil 0.06 k/uL Normal 0.00-0.20 [facility] Comment on above: Performed By: #### M G, CDP, BMP, RIANNA ####[facility] [address] [place], [place] [address])[phone] Director: Carlos Rowland MD Abs.Imm.Granulocy te 0.04 k/uL Normal 0.00-0.30 [facility] Comment on above: Performed By: #### M G, CDP, BMP, RIANNA ####[facility] [address] [place], [place] [address])[phone] Director: Carlos Rowland MD Abs.Neutrophil (Seg) 6.54 k/uL Normal 1.50-8.10 [facility] Comment on above: Performed By: #### M G, CDP, BMP, RIANNA ####[facility] [address] [place], [place] [address])[phone] Director: Carlos Rowland MD Basophils/100 WBC (Bld) 1 % Normal 0-2 [facility] Comment on above: Performed By: #### M G, CDP, BMP, RIANNA ####[facility] [address] [place], [place] [address])[phone] Director: Carlos Rowland MD Eosinophils (Bld) [#/Vol] 0.26 10*3/uL Normal 0.00-0.44 [facility] Comment on above: Performed By: #### M G, CDP, BMP, RIANNA ####[facility] [address] [place], [place] [address]19)[phone] Director: Carlos Rowland MD Eosinophils/100 WBC (Bld) 3 % Normal 1-4 [facility] Comment on above: Performed By: #### M G, CDP, BMP, RIANNA ####[facility] [address]swzjuz[address] [place], [place] [address]19)[phone] Director: Carlos Rowland MD Erythrocyte distribution width (RBC) [Ratio] 15.2 % High 11.8-14.4 [facility] Comment on above: Performed By: #### M G, CDP, BMP, RIANNA ####[facility] [address] [place], [place] [address])[phone] Director: Carlos Rowland MD Hematocrit (Bld) [Volume fraction] 39.1 % Low 40.7-50.3 [facility] Comment on above: Performed By: #### M G, CDP, BMP, RIANNA ####[facility] [address] [place], [place] [address])[phone] Director: Carlos Rowland MD Hemoglobin (Bld) [Mass/Vol] 11.9 g/dL Low 13.0-17.0 [facility] Comment on above: Performed By: #### M G, CDP, BMP, RIANNA ####[facility] [address]ys[address]okrbu1492 [place], [place] [address])[phone] Director: Carlos Rowland MD Immature granulocytes/100 WBC (Bld) 0 % Normal 0 [facility] Comment on above: Performed By: #### M G, CDP, BMP, RIANNA ####[facility] [address] [place], [place] [address])[phone] Director: Carlos Rowland MD Lymphocytes (Bld) [#/Vol] 1.23 10*3/uL Normal 1.10-3.70 [facility] Comment on above: Performed By: #### M G, CDP, BMP, RIANNA ####[facility] [address] [place], [place] [address])[phone] Director: Cralos Rowland MD Lymphocytes/100 WBC (Bld) 14 % Low 24-43 [facility] Comment on above: Performed By: #### M G, CDP, BMP, RIANNA ####[facility] [address]ots[address] [place], [place] [address])[phone] Director: Carlos Rowland MD MCH (RBC) [Entitic mass] 29.5 pg Normal 25.2-33.5 [facility] Comment on above: Performed By: #### M G, CDP, BMP, RIANNA ####[facility] [address] [place], [place] [address])[phone] Director: Carlos Rowland MD MCHC (RBC) [Mass/Vol] 30.4 g/dL Normal 28.4-34.8 [facility] Comment on above: Performed By: #### M G, CDP, BMP, RIANNA ####[facility] [address] [place] [address])[phone] Director: Carlos Rowland MD MCV (RBC) [Entitic vol] 97.0 fL Normal 82.6-102.9 [facility] Comment on above: Performed By: #### M G, CDP, BMP, RIANNA ####[address] [address])[phone] Director: Carlos Rowland MD Monocytes (Bld) [#/Vol] 0.85 10*3/uL Normal 0.10-1.20 [facility] Comment on above: Performed By: #### M G, CDP, BMP, RIANNA ####[facility] [address] [place] [address])[phone] Director: Carlos Rowland MD Monocytes/100 WBC (Bld) 10 % Normal 3-12 [facility] Comment on above: Performed By: #### M G, CDP, BMP, RIANNA ####[facility] [address] [place] [address] Lab Director: Carlos Rowland MD Neutrophil (Seg) 72 % High 36-65 [facility] Comment on above: Performed By: #### M G, CDP, BMP, RIANNA ####[facility] [address]16 [place] [address] Lab Director: Carlos Rowland MD NRBC Automated 0.0 per 100 WBC Normal 0.0 [facility] Comment on above: Performed By: #### M G, CDP, BMP, RIANNA ####[facility] [address] [place] [address] Lab Director: Carlos Rowland MD Platelet mean volume (Bld) [Entitic vol] 9.9 fL Normal 8.1-13.5 [facility] Comment on above: Performed By: #### M G, CDP, BMP, RIANNA ####[facility] [address] [place] [address] Lab Director: Carlos Rowland MD Platelets (Bld) [#/Vol] 206 10*3/uL Normal 138-453 [facility] Comment on above: Performed By: #### M G, CDP, BMP, RIANNA ####[facility] [address] [place] [address] Lab Director: Carlos Rowland MD RBC (Bld) [#/Vol] 4.03 10*6/uL Low 4.21-5.77 [facility] Comment on above: Performed By: #### M G, CDP, BMP, RIANNA ####[facility] [address] [place] [address] Lab Director: Carlos Rowland MD RBC morphology finding Nom (Bld) ANISOCYTOSIS PRESENT Normal [facility] Comment on above: Performed By: #### M G, CDP, BMP, RIANNA ####[facility] [address] [place], [place] [id number] Lab Director: Carlos Rowland MD WBC (Bld) [#/Vol] 9.0 10*3/uL Normal 3.5-11.3 [facility] Comment on above: Performed By: #### M MAHOGANY Chen, BMP, RIANNA ####[facility] [address] [place], [place] [id number] lab Director: Carlos Rowland MD Glucose,Whole Bloodon 2023 Glucose [Mass/Vol] 175 mg/dL High 75-110 [facility] Glucose [Mass/Vol] 169 mg/dL High 75-110 [facility] Glucose [Mass/Vol] 273 mg/dL High 75-110 [facility] Glucose [Mass/Vol] 157 mg/dL High 75-110 [facility] Magnesiumon 07-15-2023 Magnesium [Mass/Vol] 2.2 mg/dL Normal 1.6-2.6 [facility] Comment on above: Performed By: #### M MAHOGANY Chen, BMP, RIANNA ####[facility] [address]jf[address]ax[address] [place], [place] [id number] lab Director: Carlos Rowland MD PTon 07-15-2023 INR Coag (PPP) [Relative time] 1.4 {INR} Normal [facility] Comment on above: Result Comment: Therapeutic Range: Moderate Anticoagulant Intensity: INR = 2.0-3.0 High Anticoagulant Intensity: INR = 2.5-3.5 Performed By: #### P T ####[facility] [address]ypnol9400 [place] [address] Lab Director: Carlos Rowland MD PT Coag (PPP) [Time] 16.5 s High 11.7-14.9 [facility] Comment on above: Performed By: #### P T ####[facility] Ntwlojjqmfyz0348 [place] [address] lab Director: Carlos Rowland MD Phosphorus, Inorg.on 024 Phosphorus, Inorg. 3.8 mg/dL Normal 2.5-4.5 [facility] Comment on above: Performed By: #### M G, CDP, BMP, RIANNA ####[facility] [address]izhwuwc[address]773 [place] [address] Lab Director: Carlos Rowland MD Basic Metabolic Profon 07-14 Anion gap [Moles/Vol] 10 mmol/L Normal 9-17 [facility] Comment on above: Performed By: #### B MP, CDP, MG, RIANNA ####[facility] [address]fepgbm[address]lo2971 [place] [address] Lab Director: Carlos Rowland MD Calcium [Mass/Vol] 8.5 mg/dL Low 8.6-10.4 [facility] Comment on above: Performed By: #### B MP, CDP, MG, RIANNA ####[facility] [address]rijysedtj[address]185 [place] [address] Lab Director: Carlos Rowland MD Chloride [Moles/Vol] 103 mmol/L Normal 98-107 [facility] Comment on above: Performed By: #### B MP, CDP, MG, RIANNA ####[facility] [address]lmjmpyt6461 [place] [address] Lab Director: Carlos Rowland MD CO2 [Moles/Vol] 23 mmol/L Normal 20-31 [facility] Comment on above: Performed By: #### B MP, CDP, MG, RIANNA ####[facility] [address]ycmaglm[address]863 [place] [address] Lab Director: Carlos Rowland MD Creatinine [Mass/Vol] 1.0 mg/dL Normal 0.7-1.2 [facility] Comment on above: Performed By: #### B MP, CDP, MG, RIANNA ####[facility] [address]igs6[address] [place], [place] [id number])[phone] Director: Carlos Rowland MD GFR/1.73 sq M.predicted among non-blacks MDRD (S/P/Bld) [Vol rate/Area] mL/min/{1.73_m2} Normal >60 [facility] Comment on above: Result Comment: These results [...] #### B MP, CDP, MG, RIANNA ####[facility] [address]jrs[address] [place], [place] [address])[phone] Director: Carlos Rowland MD Glucose [Mass/Vol] 154 mg/dL High 70-99 [facility] Comment on above: Performed By: #### B MP, CDP, MG, RIANNA ####[facility] [address] [place], [place] [address])[phone] Director: Carlos Rowland MD Potassium [Moles/Vol] 3.9 mmol/L Normal 3.7-5.3 [facility] Comment on above: Performed By: #### B MP, CDP, MG, RIANNA ####[facility] Q[address]jjy[address]ixdf4521 [place], [place] [id number])[phone] Director: Carlos Rowland MD Sodium [Moles/Vol] 136 mmol/L Normal 135-144 [facility] Comment on above: Performed By: #### B MP, CDP, MG, RIANNA ####[facility] [address]kh[address] [place], [place] [id number])[phone] Director: Carlos Rowland MD Urea nitrogen [Mass/Vol] 24 mg/dL High 8-23 [facility] Comment on above: Performed By: #### B MP, CDP, MG, RIANNA ####[facility] Apr[address]ozts4490 [place], [place] [id number])[phone] Director: Carlos Rowland MD CBC with Diffon 02-22-2024 Abs. Basophil 0.03 k/uL Normal 0.00-0.20 [facility] Comment on above: Performed By: #### B MP, CDP, MG, RIANNA ####[facility] [address]zu[address]fxtselie[address] [place], [place] [address])[phone] Director: Carlos Rowland MD Abs.Imm.Granulocy te 0.08 k/uL Normal 0.00-0.30 [facility] Comment on above: Performed By: #### B MP, CDP, MG, RIANNA ####[facility] [address]mrrtflxtg1365 [place], [place] [address])[phone] Director: Carlos Rowland MD Abs.Neutrophil (Seg) 10.21 k/uL High 1.50-8.10 [facility] Comment on above: Performed By: #### B MP, CDP, MG, RIANNA ####[facility] [address] [place] [address])[phone] Director: Carlos Rowland MD Basophils/100 WBC (Bld) 0 % Normal 0-2 [facility] Comment on above: Performed By: #### B MP, CDP, MG, RIANNA ####[facility] [address]amhodlhwk5927 [place], [place] [address])[phone] Director: Carlos Rowland MD Eosinophils (Bld) [#/Vol] 0.12 10*3/uL Normal 0.00-0.44 [facility] Comment on above: Performed By: #### B MP, CDP, MG, RIANNA ####[facility] Mpmsdosbbzzc0611 [place], [place] [address])[phone] Director: Carlos Rowland MD Eosinophils/100 WBC (Bld) 1 % Normal 1-4 [facility] Comment on above: Performed By: #### B MP, CDP, MG, RIANNA ####[facility] [address]mlupg[address]yunj[address] [place], [place] [address])[phone] Director: Carlos Rowland MD Erythrocyte distribution width (RBC) [Ratio] 15.2 % High 11.8-14.4 [facility] Comment on above: Performed By: #### B MP, CDP, MG, RIANNA ####[facility] Xmfut[address]jbgtnl9548 [place], [place] 58273419)[phone] Director: Carlos Rowland MD Hematocrit (Bld) [Volume fraction] 33.6 % Low 40.7-50.3 [facility] Comment on above: Performed By: #### B MP, CDP, MG, RIANNA ####[facility] Lfxbyhxvzgud7940 [place], [place] [phone])[phone] Director: Carlos Rowland MD Hemoglobin (Bld) [Mass/Vol] 10.6 g/dL Low 13.0-17.0 [facility] Comment on above: Performed By: #### B MP, CDP, MG, RIANNA ####[facility] [address] [place] [address])[phone] Director: Carlos Rowland MD Immature granulocytes/100 WBC (Bld) 1 % High 0 [facility] Comment on above: Performed By: #### B MP, CDP, MG, RIANNA ####[facility] Ygrun[address]ub[address]049 [place], [place] [id number])[phone] Director: Carlos Rowland MD Lymphocytes (Bld) [#/Vol] 1.08 10*3/uL Low 1.10-3.70 [facility] Comment on above: Performed By: #### B MP, CDP, MG, RIANNA ####[facility] [address]ofwsish[address]6 [place], [place] [phone])[phone] Director: aCrlos Rowland MD Lymphocytes/100 WBC (Bld) 9 % Low 24-43 [facility] Comment on above: Performed By: #### B MP, CDP, MG, RIANNA ####[facility] [address]nparew[address]xxi4[address] [place], [place] [id number])[phone] Director: Carlos Rowland MD MCH (RBC) [Entitic mass] 29.3 pg Normal 25.2-33.5 [facility] Comment on above: Performed By: #### B MP, CDP, MG, RIANNA ####[facility] [address]ff[address] [place], [place] [id number])[phone] Director: Carlos Rowland MD MCHC (RBC) [Mass/Vol] 31.5 g/dL Normal 28.4-34.8 [facility] Comment on above: Performed By: #### B MP, CDP, MG, RIANNA ####[facility] [address] [place], [place] [id number])[phone] Director: Carlos Rowland MD MCV (RBC) [Entitic vol] 92.8 fL Normal 82.6-102.9 [facility] Comment on above: Performed By: #### B MP, CDP, MG, RIANNA ####[facility] [address] [place] [address] [phone])[phone] Director: Carlos Rowland MD Monocytes (Bld) [#/Vol] 0.85 10*3/uL Normal 0.10-1.20 [facility] Comment on above: Performed By: #### B MP, CDP, MG, RIANNA ####[facility] [address] [place] [address] [phone] Director: Carlos Rowland MD Monocytes/100 WBC (Bld) 7 % Normal 3-12 [facility] Comment on above: Performed By: #### B MP, CDP, MG, RIANNA ####[facility] Qygbf[address]vgkly8168 [place], [place] [phone])[phone] Director: Carlos Rowland MD Neutrophil (Seg) 82 % High 36-65 [facility] Comment on above: Performed By: #### B MP, CDP, MG, RIANNA ####[facility] [address] [place], [place] [id number])[phone] Director: Carlos Rowland MD NRBC Automated 0.0 per 100 WBC Normal 0.0 [facility] Comment on above: Performed By: #### B MP, CDP, MG, RIANNA ####[facility] [address] [place], [place] [address])[phone] Director: Carlos Rowland MD Platelet mean volume (Bld) [Entitic vol] 9.8 fL Normal 8.1-13.5 [facility] Comment on above: Performed By: #### B MP, CDP, MG, RIANNA ####[facility] [address]ase[address] [place], [place] [id number])[phone] Director: Carlos Rowland MD Platelets (Bld) [#/Vol] 179 10*3/uL Normal 138-453 [facility] Comment on above: Performed By: #### B MP, CDP, MG, RIANNA ####[address] [address])[phone] Director: Carlos Rowland MD RBC (Bld) [#/Vol] 3.62 10*6/uL Low 4.21-5.77 [facility] Comment on above: Performed By: #### B MP, CDP, MG, RIANNA ####[facility] [address] [place] [address] [phone] Director: Carlos Rowland MD RBC morphology finding Nom (Bld) ANISOCYTOSIS PRESENT Normal [facility] Comment on above: Performed By: #### B MP, CDP, MG, RIANNA ####[facility] Otv[address]ncbwfe3532 [place], [place] [address])[phone] Director: Carlos Rowland MD WBC (Bld) [#/Vol] 12.4 10*3/uL High 3.5-11.3 [facility] Comment on above: Performed By: #### B MP, CDP, MG, RIANNA ####[facility] [address] [place], [place] [phone])[phone] Director: Carlos Rowland MD Cult,Urineon 07-14-2023 Cult,Urine Specimen Description .URINE Culture NO GROWTH Report Status FINAL 07/14/2023 Normal [facility] Comment on above: Performed By: #### U RC ####[address] [address] lab Director: Carlos Rowland MD Glucose,Whole Bloodon 2023 Glucose [Mass/Vol] 158 mg/dL High 75-110 [facility] Glucose [Mass/Vol] 226 mg/dL High 75-110 [facility] Glucose [Mass/Vol] 272 mg/dL High 75-110 [facility] Glucose [Mass/Vol] 143 mg/dL High -110 [facility] Magnesiumon 07-14-2023 Magnesium [Mass/Vol] 2.1 mg/dL Normal 1.6-2.6 [facility] Comment on above: Performed By: #### B MP, CDP, MG, RIANNA ####[facility] [address] [place] [address] lab Director: Carlos Rowland MD Phosphorus, Inorg.on 024 Phosphorus, Inorg. 3.2 mg/dL Normal 2.5-4.5 [facility] Comment on above: Performed By: #### B MP, CDP, MG, RIANNA ####[facility] E[address]feypmpaodw[address]3 [place] [address] lab Director: Carlos Rowland MD XR CERVICAL [...] Shaq Melendez MD 07/14/23 Final result Normal [facility] Basic Metabolic Profon 07-13 Anion gap [Moles/Vol] 10 mmol/L Normal 9-17 [facility] Comment on above: Performed By: #### U AX, UMICAO #### [facility] [address] [place] [address] Pizzamaker: Carlos Rowland MD Calcium [Mass/Vol] 8.5 mg/dL Low 8.6-10.4 [facility] Comment on above: Performed By: #### U AX, UMICAO #### [facility] [address] [place] [address] Pizzamaker: Carlos Rowland MD Chloride [Moles/Vol] 103 mmol/L Normal 98-107 [facility] Comment on above: Performed By: #### U AX, UMICAO #### [facility] [address] [place] [address] Pizzamaker: Carlos Rowland MD CO2 [Moles/Vol] 24 mmol/L Normal 20-31 [facility] Comment on above: Performed By: #### U AX, UMICAO #### [facility] [address] [place] [address] Pizzamaker: Carlos Rowland MD Creatinine [Mass/Vol] 1.0 mg/dL Normal 0.7-1.2 [facility] Comment on above: Performed By: #### U AX UMICAO #### [facility] [address] [place] [address] Pizzamaker: Carlos Rowland MD GFR/1.73 sq M.predicted among non-blacks MDRD (S/P/Bld) [Vol rate/Area] mL/min/{1.73_m2} Normal >60 [facility] Comment on above: Result Comment: These results [...] renal tubular secretion. Performed By: #### U LUZ MARIA MCQUEEN #### [facility] [address] [place] [address] Pizzamaker: Carlos Rowland MD Glucose [Mass/Vol] 195 mg/dL High 70-99 [facility] Comment on above: Performed By: #### LUZ MARIA MERCHANT #### [facility] [address] [place] [address] Pizzamaker: Carlos Rowland MD Potassium [Moles/Vol] 4.9 mmol/L Normal 3.7-5.3 [facility] Comment on above: Performed By: #### JAMMIE MERCHANTO #### [facility] [address] [place] [address] Pizzamaker: Carlos Rowland MD Sodium [Moles/Vol] 137 mmol/L Normal 135-144 [facility] Comment on above: Performed By: #### LUZ MARIA MERCHANT #### [facility] [address] [place] [address] Pizzamaker: Carlos Rowland MD Urea nitrogen [Mass/Vol] 20 mg/dL Normal 8-23 [facility] Comment on above: Performed By: #### U JAMMIE MCQUEENO #### [facility] [address] [place] [address] Pizzamaker: Carlos Rowland MD CBC with Diffon 07-13-2023 Abs. Basophil 0.06 k/uL Normal 0.00-0.20 [facility] Comment on above: Performed By: #### U AX UMICAO #### [facility] [address] [place] [address] Pizzamaker: Carlos Rowland MD Abs.Imm.Granulocy te 0.07 k/uL Normal 0.00-0.30 [facility] Comment on above: Performed By: #### U AX UMICAO #### [facility] [address] [place] [address] Pizzamaker: Carlos Rowland MD Abs.Neutrophil (Seg) 9.84 k/uL High 1.50-8.10 [facility] Comment on above: Performed By: #### U AX UMICAO #### [facility] [address] [place] [address] Pizzamaker: Carlos Rowland MD Basophils/100 WBC (Bld) 1 % Normal 0-2 [facility] Comment on above: Performed By: #### U AX UMICAO #### [facility] [address] [place] [address] Pizzamaker: Carlos Rowland MD Eosinophils (Bld) [#/Vol] 0.03 10*3/uL Normal 0.00-0.44 [facility] Comment on above: Performed By: #### U AX UMICAO #### [facility] [address] [place] [address] Pizzamaker: Carlos Rowland MD Eosinophils/100 WBC (Bld) 0 % Low 1-4 [facility] Comment on above: Performed By: #### U AX UMICAO #### [facility] [address] [place] [address] Pizzamaker: Carlos Rowland MD Erythrocyte distribution width (RBC) [Ratio] 15.3 % High 11.8-14.4 [facility] Comment on above: Performed By: #### U AXJUSTINAICAO #### [address] [address] Pizzamaker: Carlos Rowland MD Hematocrit (Bld) [Volume fraction] 35.5 % Low 40.7-50.3 [facility] Comment on above: Performed By: #### U AX, UMICAO #### [address] [address] Pizzamaker: Carlos Rowland MD Hemoglobin (Bld) [Mass/Vol] 10.8 g/dL Low 13.0-17.0 [facility] Comment on above: Performed By: #### U AX, UMICAO #### [facility] [address] [place] [address] Pizzamaker: Carlos Rowland MD Immature granulocytes/100 WBC (Bld) 1 % High 0 [facility]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 Normal 98-107 The [facility] Comment on above: Performed By: #### C VDTBH #### [facility] [address] [address] [address] Obdulia Ng CO2 [Moles/Vol] 28.6 mmol/L Normal 21.0-32.0 [facility] Comment on above: Performed By: #### C VDTBH #### [facility] [address] [place] [address] Dr. Obdulia Ng Creatinine [Mass/Vol] 1.32 mg/dL Critically high 0.70-1.30 The [facility] Comment on above: Performed By: #### C VDTBH #### [facility] [address] [place] [address] Dr. Obdulia Ng EGFR-AF SOUTH AFRICAN >60 Normal >=60 [facility] Comment on above: Performed By: #### C VDTBH #### [facility] [address] [place] [address] Dr. Obdulia Ng EGFR-NON AF SOUTH AFRICAN 52 mL/min/1.73m2 Critically low >=60 The [facility] Comment on above: Performed By: #### C VDTBH #### [facility] [address] [place] [address] Dr. Obdulia Ng Glucose [Mass/Vol] 92 mg/dL Normal 74-106 The [facility] Comment on above: Performed By: #### C VDTBH #### [facility] [address] [place] [address] Dr. Obdulia Ng Potassium [Moles/Vol] 3.8 mmol/L Normal 3.5-5.1 The [facility] Comment on above: Performed By: #### C VDTBH #### [facility] [address] [place] [address] Dr. Obdulia Ng Sodium [Moles/Vol] 140 mmol/L Normal 136-145 The [facility] Comment on above: Performed By: #### C VDTBH #### [facility] [address] [place] [address] Dr. Obdulia Ng Urea nitrogen [Mass/Vol] 24.0 mg/dL Critically high 7.0-18.0 [facility] Comment on above: Performed By: #### C VDTBH #### [facility] [address] [place] [address] Dr. Obdulia Ng Urea nitrogen/Creatini ne [Mass ratio] 18.2 mg/mg Normal [facility] Comment on above: Performed By: #### C VDTBH #### [facility] [address] [place] [address] Dr. Obdulia Ng PROTIMEon 04-20-2022 INR Coag (PPP) [Relative time] 2.11 {INR} Normal [facility] Comment on above: Performed By: #### C VDTBH #### [facility] [address] [place] [address] Dr. Obdulia Ng INR GUIDELINES SEE BELOW Normal The [facility] Comment on above: Result Comment: BRAD RED INR: 2.0 - 3.0 CONDITIONS NOT LISTED BELOW 2.5 - 3.5 FOR PROSTHETIC HEART VALVE REPLACEMENT 2.5 - 3.5 RECURRENT THROMBOSIS Performed By: #### C VDTBH #### [facility] [address] [place] [address] Dr. Obdulia Ng PT Coag (PPP) [Time] 21.7 s Critically high 9.0-11.6 The [facility] Comment on above: Performed By: #### C VDTBH #### [facility] [address] [place] [address] Dr. Obdulia Ng BNPon 04-19-2022 Natriuretic peptide B (Bld) [Mass/Vol] 31416.0 pg/mL Critically high <=1,800.0 [facility] Comment on above: Performed By: #### P OCGLUC #### [facility] [address] [place] [address] Dr. Obdulia Ng CBC AUTO DIFFon 04-19-2022 BASO # 0.1 103/ul Normal 0.0-0.1 [facility] Comment on above: Performed By: #### C VDTBH #### [facility] [address] [place] [address] Dr. Obdulia Ng Basophils/100 WBC (Bld) 0.8 % Normal 0.2-2.0 [facility] Comment on above: Performed By: #### C VDTBH #### [facility] [address] [place] [address] Dr. Obdulia Ng EO # 0.0 103/ul Normal 0.0-0.7 [facility] Comment on above: Performed By: #### C VDTBH #### [facility] [address] [place] [address] Dr. Obdulia Ng Eosinophils/100 WBC (Bld) 0.4 % Critically low 0.9-7.0 [facility] Comment on above: Performed By: #### C VDTBH #### [facility] [address] [place] [address] Dr. Obdulia Ng Erythrocyte distribution width (RBC) [Ratio] 15.7 % Critically high 11.0-15.0 [facility] Comment on above: Performed By: #### C VDTBH #### [facility] [address] [place] [address] Dr. Obdulia Ng Hematocrit (Bld) [Volume fraction] 38.3 % Critically low 42.0-54.0 [facility] Comment on above: Performed By: #### C VDTBH #### [facility] [address] [place] [address] Dr. Obdulia Ng Hemoglobin (Bld) [Mass/Vol] 12.7 g/dL Critically low 14.0-18.0 [facility] Comment on above: Performed By: #### C VDTBH #### [facility] [address] [place] [address] Dr. Obdulia Ng IG # 0.02 10e3/ul Normal 0.00-0.03 [facility] Comment on above: Performed By: #### C VDTBH #### [facility] [address] [place] [address] Dr. Obdulia Ng IG % 0.2 % Normal 0.0-0.5 [facility] Comment on above: Performed By: #### C VDTBH #### [facility] [address] [address] [address] Obdulia Ng LYMPH # 1.3 103/ul Normal 1.2-3.8 [facility] Comment on above: Performed By: #### C VDTBH #### [facility] [address] [place] [address] Dr. Obdulia Ng Lymphocytes/100 WBC (Bld) 13.4 % Critically low 20.5-60.0 [facility] Comment on above: Performed By: #### C VDTBH #### [facility] [address] [place] [address] Dr. Obdulia Ng MANUAL DIFF REQ NO Normal [facility] Comment on above: Performed By: #### C VDTBH #### [facility] [address] [place] [address] Dr. Obdulia Ng MCH (RBC) [Entitic mass] 31.3 pg Normal 25.9-34.0 [facility] Comment on above: Performed By: #### C VDTBH #### [facility] [address] [place] [address] Dr. Obdulia Ng MCHC (RBC) [Mass/Vol] 33.2 g/dL Normal 29.9-35.2 [facility] Comment on above: Performed By: #### C VDTBH #### [facility] [address] [place] [address] Dr. Obdulia Ng MCV (RBC) [Entitic vol] 94.3 fL Critically high 80.0-94.0 [facility] Comment on above: Performed By: #### C VDTBH #### [facility] [address] [place] [address] Dr. Obdulia Ng MONO # 0.8 103/ul Normal 0.3-0.8 [facility] Comment on above: Performed By: #### C VDTBH #### [facility] [address] [place] [address] Dr. Obdulia Ng Monocytes/100 WBC (Bld) 7.7 % Normal 1.7-12.0 [facility] Comment on above: Performed By: #### C VDTBH #### [facility] [address] [place] [address] Dr. Obdulia Ng NEUT # 7.7 103/ul Critically high 1.4-6.5 [facility] Comment on above: Performed By: #### C VDTBH #### [facility] [address] [place] [address] Dr. Obdulia Ng Neutrophils/100 WBC (Bld) 77.5 % Critically high 43.0-75.0 [facility] Comment on above: Performed By: #### C VDTBH #### [facility] [address] [place] [address] Dr. Obdulia Ng Platelet mean volume (Bld) [Entitic vol] 9.7 fL Normal 9.5-13.5 [facility] Comment on above: Performed By: #### C VDTBH #### [facility] [address] [place] [address] Dr. Obdulia Ng PLT 277 103/ul Normal 150-450 [facility] Comment on above: Performed By: #### C VDTBH #### [facility] [address] [place] [address] Dr. Obdulia Ng RBC 4.06 106/ul Critically low 4.70-6.10 The [facility] Comment on above: Performed By: #### C VDTBH #### [facility] [address] [place] [address] Dr. Obdulia Ng WBC 10.0 103/ul Normal 4.0-11.0 The [facility] Comment on above: Performed By: #### C VDTBH #### [facility] [address] [place] [address] Dr. Obdulia Ng Covid-19 PCR (CVDTB)on 03-24 SARS-CoV-2 (COVID-19) RNA SHELBY+probe Ql (Unsp spec) Not detected Normal NOT DETECTED The [facility] Comment on above: Result Comment: When diagnostic [...] for this test is supported by the [employer] of Health and Human Service's declaration that [...] used). Performed By: #### C VDTBH #### [facility] [address] [place] [address] Dr. Obdulia Ng POINT OF CARE GLUCOSEon 03-24 Glucose [Mass/Vol] 206 mg/dL Critically high 74-106 [facility] Comment on above: Performed By: #### P OCGLUC #### [facility] [address] [place] [address] Dr. Obdulia Ng PROF 14(COMP METB)on 022 Albumin [Mass/Vol] 3.3 g/dL Critically low 3.4-5.0 [facility] Comment on above: Performed By: #### P OCGLUC #### [facility] [address] [place] [address] Dr. Obdulia Ng Albumin/Globulin [Mass ratio] 1.1 {ratio} Normal [facility] Comment on above: Performed By: #### P OCGLUC #### [facility] [address] [place] [address] Dr. Obdulia Ng ALP [Catalytic activity/Vol] 82 U/L Normal 46-116 [facility] Comment on above: Performed By: #### P OCGLUC #### [facility] [address] [address] [address] Obdulia Ng ALT [Catalytic activity/Vol] 42 U/L Normal 16-63 The [facility] Comment on above: Performed By: #### P OCGLUC #### [facility] [address] [address] [address] Obdulia Ng Anion gap [Moles/Vol] 14.7 mmol/L Normal [facility] Comment on above: Performed By: #### P OCGLUC #### [facility] [address] [address] [address] Obdulia Ng AST [Catalytic activity/Vol] 19 U/L Normal 15-37 [facility] Comment on above: Performed By: #### P OCGLUC #### [facility] [address] [address] [address] Obdulia Ng Bilirubin [Mass/Vol] 1.4 mg/dL Critically high 0.2-1.0 [facility] Comment on above: Performed By: #### P OCGLUC #### [facility] [address] [address] [address] Obdulia Ng Calcium [Mass/Vol] 8.7 mg/dL Normal 8.5-10.1 [facility] Comment on above: Performed By: #### P OCGLUC #### [facility] [address] [address] [address] Obdulia Ng Chloride [Moles/Vol] 105 mmol/L Normal 98-107 The [facility] Comment on above: Performed By: #### P OCGLUC #### [facility] [address] [address] [address] Obdulia Ng CO2 [Moles/Vol] 22.3 mmol/L Normal 21.0-32.0 [facility] Comment on above: Performed By: #### P OCGLUC #### [facility] [address] [address] [address] Obdulia Ng Creatinine [Mass/Vol] 1.20 mg/dL Normal 0.70-1.30 The [facility] Comment on above: Performed By: #### P OCGLUC #### [facility] [address] [address] [address] Obdulia Ng EGFR-AF SOUTH AFRICAN >60 Normal >=60 [facility] Comment on above: Performed By: #### P OCGLUC #### [facility] [address] [address] [address] Obdulia Ng EGFR-NON AF SOUTH AFRICAN 58 mL/min/1.73m2 Critically low >=60 The [facility] Comment on above: Performed By: #### P OCGLUC #### [facility] [address] [address] [address] Obdulia Ng Globulin (S) [Mass/Vol] 3.1 g/dL Normal [facility] Comment on above: Performed By: #### P OCGLUC #### [facility] [address] [address] [address] Obdulia Ng Glucose [Mass/Vol] 124 mg/dL Critically high 74-106 [facility] Comment on above: Performed By: #### P OCGLUC #### [facility] [address] [address] [address] Obdulia Ng Potassium [Moles/Vol] 4.0 mmol/L Normal 3.5-5.1 The [facility] Comment on above: Performed By: #### P OCGLUC #### [facility] [address] [address] [address] Obdulia Ng Protein [Mass/Vol] 6.4 g/dL Normal 6.4-8.2 The [facility] Comment on above: Performed By: #### P OCGLUC #### [facility] [address] [address] [address] Obdulia Ng Sodium [Moles/Vol] 138 mmol/L Normal 136-145 The [facility] Comment on above: Performed By: #### P OCGLUC #### [facility] [address] [address] [address] Obdulia Ng Urea nitrogen [Mass/Vol] 23.0 mg/dL Critically high 7.0-18.0 [facility] Comment on above: Performed By: #### P OCGLUC #### [facility] [address] [place] [address] Dr. Obdulia Ng Urea nitrogen/Creatini ne [Mass ratio] 19.2 mg/mg Normal The [facility] Comment on above: Performed By: #### P OCGLUC #### [facility] [address] [place] [address] Dr. Obdulia Ng PROTIMEon 04-19-2022 INR Coag (PPP) [Relative time] 1.88 {INR} Normal The [facility] Comment on above: Performed By: #### P TT, PT #### [facility] [address] [place] [address] Dr. Obdulia Ng INR GUIDELINES SEE BELOW Normal The [facility] Comment on above: Result Comment: BRAD RED INR: 2.0 - 3.0 CONDITIONS NOT LISTED BELOW 2.5 - 3.5 FOR PROSTHETIC HEART VALVE REPLACEMENT 2.5 - 3.5 RECURRENT THROMBOSIS Performed By: #### P TT, PT #### [facility] [address] [place] [address] Dr. Obdulia Ng PT Coag (PPP) [Time] 19.5 s Critically high 9.0-11.6 The [facility] Comment on above: Performed By: #### P TT, PT #### [facility] [address] [place] [address] Dr. Obdulia Ng PTTon 04-19-2022 aPTT Coag (Bld) [Time] 29.1 s Normal 22.3-36.2 The [facility] Comment on above: Performed By: #### P TT, PT #### [facility] [address] [place] [address] Dr. Obdulia Ng TROPONIN, HIGH SENSITIVITYon 04-19-2022 HSTROP 20.6 pg/mL Normal 4.0-76.1 The [facility] Comment on above: Result Comment: CUT- OFF POINTS HAVE BEEN ESTABLISHED BASED ON THE FOURTH UNIVERSAL DEFINITIONS OF MYOCARDIAL INFARCTION. THE UPPER REFERENCE LIMIT (URL) OF TROPONIN, DEFINED THE 99TH PERCENTILE OF cTnI DISTRIBUTION IN A REFERENCE POPULATION, HAS BEEN CONFIRMED THE DECISION THRESHOLD FOR [place] DIAGNOSIS. Performed By: #### P OCGLUC #### [facility] [address] [address] [address] Obdulia Ng XR CHEST 1 Von [...] BROOKS STEPHENSON Date: 2022-04-19 16:11 Normal The [facility] PROTIMEon 04-03-2022 INR Coag (PPP) [Relative time] 4.04 {INR} Normal [facility] Comment on above: Performed By: #### P OCGLUC #### [facility] [address] [address] [address] Obdulia Ng INR GUIDELINES SEE BELOW Normal [facility] Comment on above: Result Comment: BRAD RED INR: 2.0 - 3.0 CONDITIONS NOT LISTED BELOW 2.5 - 3.5 FOR PROSTHETIC HEART VALVE REPLACEMENT 2.5 - 3.5 RECURRENT THROMBOSIS Performed By: #### P OCGLUC #### [facility] [address] [address] [address] Obdulia Ng PT Coag (PPP) [Time] 39.8 s Critically high 9.0-11.6 [facility] Comment on above: Performed By: #### P OCGLUC #### [facility] [address] [address] [address] Obdulia Ng Follow-Upon 03-12-2022 Follow-Up [id number] Joby Bergman 1940 M Date Provider Department Center 03/12/2022 GIL PARSON [facility] Family History Problem Relation Age of Onset Heart attack Father Family Status - Relation Status Age at Father Level of Service:20063 MO OFFICE/OUTPATIENT ESTABLISHED MOD MDM 30-39 MIN Normal [facility] Office Visiton 02-19-2022 Follow-up visit [id number] Joby Bergman matthew Trujillo 1940 M Date Provider Department Center 02/19/2022 GIL PARSON [facility] Family History Problem Relation Age of Onset Heart attack Father Family Status - Relation Status Age at Father Level of Service:02928 MO OFFICE/OUTPATIENT NEW HIGH MDM 60-74 MINUTES Reason for Visit and Comments: Atrial Fibrillation [80] Congestive Heart Failure [127] Palpitations [657390] Normal [facility] BNPon 02-18-2022 Natriuretic peptide B (Bld) [Mass/Vol] 4200.0 pg/mL Critically high <=1,800.0 [facility] Comment on above: Performed By: #### P TT, PT #### [facility] [address] [place] [address] Dr. Obdulia Ng CBC AUTO DIFFon 02-18-2022 BASO # 0.0 103/ul Normal 0.0-0.1 [facility] Comment on above: Performed By: #### C VDTBH #### [facility] [address] [place] [address] Dr. Obdulia Ng Basophils/100 WBC (Bld) 0.3 % Normal 0.2-2.0 [facility] Comment on above: Performed By: #### C VDTBH #### [facility] [address] [place] [address] Dr. Obdulia Ng EO # 0.0 103/ul Normal 0.0-0.7 [facility] Comment on above: Performed By: #### C VDTBH #### [facility] [address] [place] [address] Dr. Obdulia Ng Eosinophils/100 WBC (Bld) 0.1 % Critically low 0.9-7.0 [facility] Comment on above: Performed By: #### C VDTBH #### [facility] [address] [place] [address] Dr. Obdulia Ng Erythrocyte distribution width (RBC) [Ratio] 14.6 % Normal 11.0-15.0 [facility] Comment on above: Performed By: #### C VDTBH #### [facility] [address] [place] [address] Dr. Obdulia Ng Hematocrit (Bld) [Volume fraction] 37.7 % Critically low 42.0-54.0 [facility] Comment on above: Performed By: #### C VDTBH #### [facility] [address] [place] [address] Dr. Obdulia Ng Hemoglobin (Bld) [Mass/Vol] 12.3 g/dL Critically low 14.0-18.0 [facility] Comment on above: Performed By: #### C VDTBH #### [facility] [address] [place] [address] Dr. Obdulia Ng IG # 0.04 10e3/ul Critically high 0.00-0.03 [facility] Comment on above: Performed By: #### C VDTBH #### [facility] [address] [place] [address] Dr. Obdulia Ng IG % 0.4 % Normal 0.0-0.5 [facility] Comment on above: Performed By: #### C VDTBH #### [facility] [address] [place] [address] Dr. Obdulia Ng LYMPH # 1.1 103/ul Critically low 1.2-3.8 The [facility] Comment on above: Performed By: #### C VDTBH #### [facility] [address] [place] [address] Dr. Obdulia Ng Lymphocytes/100 WBC (Bld) 11.0 % Critically low 20.5-60.0 [facility] Comment on above: Performed By: #### C VDTBH #### [facility] [address] [place] [address] Dr. Obdulia Ng MANUAL DIFF REQ NO Normal [facility] Comment on above: Performed By: #### C VDTBH #### [facility] [address] [place] [address] Dr. Obdulia Ng MCH (RBC) [Entitic mass] 31.1 pg Normal 25.9-34.0 The [facility] Comment on above: Performed By: #### C VDTBH #### [facility] [address] [place] [address] Dr. Obdulia Ng MCHC (RBC) [Mass/Vol] 32.6 g/dL Normal 29.9-35.2 The [facility] Comment on above: Performed By: #### C VDTBH #### [facility] [address] [place] [address] Dr. Obdulia Ng MCV (RBC) [Entitic vol] 95.4 fL Critically high 80.0-94.0 The [facility] Comment on above: Performed By: #### C VDTBH #### [facility] [address] [place] [address] Dr. Obdulia Ng MONO # 1.4 103/ul Critically high 0.3-0.8 [facility] Comment on above: Performed By: #### C VDTBH #### [facility] [address] [place] [address] Dr. Obdulia Ng Monocytes/100 WBC (Bld) 14.4 % Critically high 1.7-12.0 [facility] Comment on above: Performed By: #### C VDTBH #### [facility] [address] [place] [address] Dr. Obdulia Ng NEUT # 7.2 103/ul Critically high 1.4-6.5 [facility] Comment on above: Performed By: #### C VDTBH #### [facility] [address] [place] [address] Dr. Obdulia Ng Neutrophils/100 WBC (Bld) 73.8 % Normal 43.0-75.0 The [facility] Comment on above: Performed By: #### C VDTBH #### [facility] [address] [place] [address] Dr. Obdulia Ng Platelet mean volume (Bld) [Entitic vol] 9.9 fL Normal 9.5-13.5 The [facility] Comment on above: Performed By: #### C VDTBH #### [facility] [address] [address] [address] Obdulia Ng PLT 220 103/ul Normal 150-450 The [facility] Comment on above: Performed By: #### C VDTBH #### [facility] [address] [address] [address] Obdulia Ng RBC 3.95 106/ul Critically low 4.70-6.10 [facility] Comment on above: Performed By: #### C VDTBH #### [facility] [address] [address] [address] Obdulia Ng WBC 9.7 103/ul Normal 4.0-11.0 [facility] Comment on above: Performed By: #### C VDTBH #### [facility] [address] [place] [address] Dr. Obdulia Ng POINT OF CARE GLUCOSEon 01-22 Glucose [Mass/Vol] 127 mg/dL Critically high 74-106 [facility] Comment on above: Performed By: #### P OCGLUC #### [facility] [address] [address] [address] Obdulia Ng PROF CHEM 8 (BAS METB)on Anion gap [Moles/Vol] 11.7 mmol/L Normal [facility] Comment on above: Performed By: #### P TT, PT #### [facility] [address] [place] [address] Dr. Obdulia Ng Calcium [Mass/Vol] 8.2 mg/dL Critically low 8.5-10.1 [facility] Comment on above: Performed By: #### P TT, PT #### [facility] [address] [address] [address] Obdulia Ng Chloride [Moles/Vol] 105 mmol/L Normal 98-107 [facility] Comment on above: Performed By: #### P TT, PT #### [facility] [address] [address] [address] Obdulia Ng CO2 [Moles/Vol] 27.3 mmol/L Normal 21.0-32.0 [facility] Comment on above: Performed By: #### P TT, PT #### [facility] [address] [address] [address] Obdulia Ng Creatinine [Mass/Vol] 1.22 mg/dL Normal 0.70-1.30 [facility] Comment on above: Performed By: #### P TT, PT #### [facility] [address] [address] [address] Obdulia Ng EGFR-AF SOUTH AFRICAN >60 Normal >=60 [facility] Comment on above: Performed By: #### P TT, PT #### [facility] [address] [address] [address] Obdulia Ng EGFR-NON AF SOUTH AFRICAN 57 mL/min/1.73m2 Critically low >=60 [facility] Comment on above: Performed By: #### P TT, PT #### [facility] [address] [address] [address] Obdulia Ng Glucose [Mass/Vol] 129 mg/dL Critically high 74-106 [facility] Comment on above: Performed By: #### P TT, PT #### [facility] [address] [address] [address] Obdulia Ng Potassium [Moles/Vol] 4.0 mmol/L Normal 3.5-5.1 [facility] Comment on above: Performed By: #### P TT, PT #### [facility] [address] [address] [address] Obdulia Ng Sodium [Moles/Vol] 140 mmol/L Normal 136-145 The [facility] Comment on above: Performed By: #### P TT, PT #### [facility] [address] [address] [address] Obdulia Ng Urea nitrogen [Mass/Vol] 31.0 mg/dL Critically high 7.0-18.0 [facility] Comment on above: Performed By: #### P TT, PT #### [facility] [address] [address] [address] Obdulia Ng Urea nitrogen/Creatini ne [Mass ratio] 25.4 mg/mg Normal The [facility] Comment on above: Performed By: #### P TT, PT #### [facility] [address] [place] [address] Dr. Obdulia Ng PROTIMEon 02-18-2022 INR Coag (PPP) [Relative time] 1.72 {INR} Normal The [facility] Comment on above: Performed By: #### P OCGLUC #### [facility] [address] [place] [address] Dr. Obdulia Ng INR GUIDELINES SEE BELOW Normal The [facility] Comment on above: Result Comment: BRAD RED INR: 2.0 - 3.0 CONDITIONS NOT LISTED BELOW 2.5 - 3.5 FOR PROSTHETIC HEART VALVE REPLACEMENT 2.5 - 3.5 RECURRENT THROMBOSIS Performed By: #### P OCGLUC #### [facility] [address] [place] [address] Dr. Obdulia Ng PT Coag (PPP) [Time] 17.9 s Critically high 9.0-11.6 The [facility] Comment on above: Performed By: #### P OCGLUC #### [facility] [address] [place] [address] Dr. Obdulia Ng BNPon 02-17-2022 Natriuretic peptide B (Bld) [Mass/Vol] 74176.0 pg/mL Critically high <=1,800.0 The [facility] Comment on above: Performed By: #### P OCGLUC #### [facility] [address] [place] [address] Dr. Obdulia Ng CBC W MANUAL DIFFon 02-18-20 22 ATYPICAL LYMPH # Normal [facility] Comment on above: Performed By: #### C VDTBH #### [facility] [address] [place] [address] Dr. Obdulia Ng ATYPICAL LYMPH % Normal [facility] Comment on above: Performed By: #### C VDTBH #### [facility] [address] [place] [address] Dr. Obdulia Ng BAND # 0.0 103/ul Normal 0.0-0.3 The [facility] Comment on above: Performed By: #### C VDTBH #### [facility] [address] [address] [address] Obdulia Ng BAND % 0 % Normal 0-5 The [facility] Comment on above: Performed By: #### C VDTB #### [facility] [address] [place] [address] Dr. Obdulia Ng BASOM # 0.00 103/ul Normal 0.00-0.10 [facility] Comment on above: Performed By: #### C VDTBH #### [facility] [address] [place] [address] Dr. Obdulia Ng BASOM % 0.0 % Critically low 0.2-2.0 [facility] Comment on above: Performed By: #### C VDTBH #### [facility] [address] [place] [address] Dr. Obdulia Ng BLAST # Normal [facility] Comment on above: Performed By: #### C VDTBH #### [facility] [address] [place] [address] Dr. Obdulia Ng BLAST % Normal [facility] Comment on above: Performed By: #### C VDTB #### [facility] [address] [place] [address] Dr. Obdulia Ng CORRECTED WBC Normal 4.0-11.0 [facility] Comment on above: Performed By: #### C VDTBH #### [facility] [address] [place] [address] Dr. Obdulia Ng EOS # 0.00 103/ul Normal 0.00-0.70 [facility] Comment on above: Performed By: #### C VDTBH #### [facility] [address] [place] [address] Dr. Obdulia Ng EOS% 0.0 % Critically low 0.9-7.0 The [facility] Comment on above: Performed By: #### C VDTBH #### [facility] [address] [place] [address] Dr. Obdulia Ng HCT 35.8 % Critically low 42.0-54.0 The [facility] Comment on above: Performed By: #### C VDTBH #### [facility] [address] [address] [address] Obdulia Ng HGB 11.7 g/dl Critically low 14.0-18.0 [facility] Comment on above: Performed By: #### C VDTBH #### [facility] [address] [address] [address] Obdulia Ng LYMPHM # 0.50 103/ul Critically low 1.20-3.80 [facility] Comment on above: Performed By: #### C VDTBH #### [facility] [address] [address] [address] Obdulia Ng LYMPHM% 6.0 % Critically low 20.5-60.0 [facility] Comment on above: Performed By: #### C VDTBH #### [facility] [address] [place] [address] Dr. Obdulia Ng MCH 31.6 pg Normal 25.9-34.0 [facility] Comment on above: Performed By: #### C VDTBH #### [facility] [address] [address] [address] Obdulia Ng MCHC 32.7 g/dl Normal 29.9-35.2 [facility] Comment on above: Performed By: #### C VDTBH #### [facility] [address] [place] [address] Dr. Obdulia Ng MCV 96.8 fL Critically high 80.0-94.0 The [facility] Comment on above: Performed By: #### C VDTBH #### [facility] [address] [address] [address] Obdulia Ng METAMYELOCYTE # 0.2 103/ul Normal The [facility] Comment on above: Performed By: #### C VDTBH #### [facility] [address] [place] [address] Dr. Obdulia Ng METAMYELOCYTE % 3 % Normal [facility] Comment on above: Performed By: #### C VDTBH #### [facility] [address] [address] [address] Obdulia Ng MONOM# 0.00 103/ul Critically low 0.30-0.80 [facility] Comment on above: Performed By: #### C VDTBH #### [facility] [address] [address] [address] Obdulia Ng MONOM% 0.0 % Critically low 1.7-12.0 [facility] Comment on above: Performed By: #### C VDTBH #### [facility] [address] [address] [address] Obdulia Ng MPV 9.7 fL Normal 9.5-13.5 [facility] Comment on above: Performed By: #### C VDTBH #### [facility] [address] [place] [address] Dr. Obdulia Ng MYELOCYTE # Normal [facility] Comment on above: Performed By: #### C VDTBH #### [facility] [address] [address] [address] Obdulia Ng MYELOCYTE % Normal [facility] Comment on above: Performed By: #### C VDTBH #### [facility] [address] [address] [address] Obdulia Ng NRBC Normal [facility] Comment on above: Performed By: #### C VDTBH #### [facility] [address] [address] [address] Obdulia Ng PLT 218 103/ul Normal 150-450 [facility] Comment on above: Performed By: #### C VDTBH #### [facility] [address] [address] [address] Obdulia Ng RBC 3.70 106/ul Critically low 4.70-6.10 The [facility] Comment on above: Performed By: #### C VDTBH #### [facility] [address] [place] [address] Dr. Obdulia Ng RDW 14.6 % Normal 11.0-15.0 [facility] Comment on above: Performed By: #### C VDTBH #### [facility] [address] [address] [address] Obdulia Ng SEG # 7.55 103/ul Critically high 1.40-6.50 [facility] Comment on above: Performed By: #### C VDTBH #### [facility] [address] [place] [address] Dr. Obdulia Ng SEG % 91.0 % Critically high 43.0-75.0 [facility] Comment on above: Performed By: #### C VDTBH #### [facility] [address] [address] [address] Obdulia Ng WBC 8.3 103/ul Normal 4.0-11.0 [facility] Comment on above: Performed By: #### C VDTBH #### [facility] [address] [place] [address] Dr. Obdulia Ng POINT OF CARE GLUCOSEon 01-22 Glucose [Mass/Vol] 133 mg/dL Critically high 74-106 [facility] Comment on above: Performed By: #### P OCGLUC #### [facility] [address] [place] [address] Dr. Obdulia Ng Glucose [Mass/Vol] 255 mg/dL Critically high 74-106 [facility] Comment on above: Performed By: #### T SH, T4 #### [facility] [address] [place] [address] Dr. Obdulia Ng Glucose [Mass/Vol] 229 mg/dL Critically high 74-106 [facility] Comment on above: Performed By: #### C BC #### [facility] [address] [place] [address] Dr. Obdulia Ng Glucose [Mass/Vol] 138 mg/dL Critically high 74-106 [facility] Comment on above: Performed By: #### P TT, PT #### [facility] [address] [place] [address] Dr. Obdulia Ng PROF CHEM 8 (BAS METB)on Anion gap [Moles/Vol] 11.3 mmol/L Normal [facility] Comment on above: Performed By: #### P OCGLUC #### [facility] [address] [address] [address] Obdulia Ng Calcium [Mass/Vol] 8.2 mg/dL Critically low 8.5-10.1 The [facility] Comment on above: Performed By: #### P OCGLUC #### [facility] [address] [address] [address] Obdulia Ng Chloride [Moles/Vol] 104 mmol/L Normal 98-107 The [facility] Comment on above: Performed By: #### P OCGLUC #### [facility] [address] [address] [address] Obdulia Ng CO2 [Moles/Vol] 27.7 mmol/L Normal 21.0-32.0 [facility] Comment on above: Performed By: #### P OCGLUC #### [facility] [address] [address] [address] Obdulia Ng Creatinine [Mass/Vol] 1.34 mg/dL Critically high 0.70-1.30 The [facility] Comment on above: Performed By: #### P OCGLUC #### [facility] [address] [address] [address] Obdulia Ng EGFR-AF SOUTH AFRICAN >60 Normal >=60 [facility] Comment on above: Performed By: #### P OCGLUC #### [facility] [address] [address] [address] Obdulia Ng EGFR-NON AF SOUTH AFRICAN 51 mL/min/1.73m2 Critically low >=60 The [facility] Comment on above: Performed By: #### P OCGLUC #### [facility] [address] [address] [address] Obdulia Ng Glucose [Mass/Vol] 160 mg/dL Critically high 74-106 The [facility] Comment on above: Performed By: #### P OCGLUC #### [facility] [address] [address] [address] Obdulia Ng Potassium [Moles/Vol] 4.0 mmol/L Normal 3.5-5.1 The [facility] Comment on above: Performed By: #### P OCGLUC #### [facility] [address] [address] [address] Obdulia Ng Sodium [Moles/Vol] 139 mmol/L Normal 136-145 The [facility] Comment on above: Performed By: #### P OCGLUC #### [facility] [address] [place] [address] Dr. Obdulia Ng Urea nitrogen [Mass/Vol] 24.0 mg/dL Critically high 7.0-18.0 [facility] Comment on above: Performed By: #### P OCGLUC #### [facility] [address] [place] [address] Dr. Obdulia Ng Urea nitrogen/Creatini ne [Mass ratio] 17.9 mg/mg Normal The [facility] Comment on above: Performed By: #### P OCGLUC #### [facility] [address] [place] [address] Dr. Obdulia Ng PROTIMEon 02-17-2022 INR Coag (PPP) [Relative time] 2.41 {INR} Normal [facility] Comment on above: Performed By: #### C VDTBH #### [facility] [address] [place] [address] Dr. Obdulia Ng INR GUIDELINES SEE BELOW Normal The [facility] Comment on above: Result Comment: BRAD RED INR: 2.0 - 3.0 CONDITIONS NOT LISTED BELOW 2.5 - 3.5 FOR PROSTHETIC HEART VALVE REPLACEMENT 2.5 - 3.5 RECURRENT THROMBOSIS Performed By: #### C VDTBH #### [facility] [address] [place] [address] Dr. Obdulia Ng PT Coag (PPP) [Time] 24.6 s Critically high 9.0-11.6 The [facility] Comment on above: Performed By: #### C VDTBH #### [facility] [address] [place] [address] Dr. Obdulia Ng XR CHEST 2 Von [...] BROOKS STEPHENSON Date: 2022-02-17 07:01 Normal The [facility] BNPon 02-16-2022 Natriuretic peptide B (Bld) [Mass/Vol] 36202.0 pg/mL Critically high <=1,800.0 The [facility] Comment on above: Performed By: #### C BC #### [facility] [address] [place] [address] Dr. Obdulia Ng CBC AUTO DIFFon 02-16-2022 BASO # 0.1 103/ul Normal 0.0-0.1 [facility] Comment on above: Performed By: #### C VDTBH #### [facility] [address] [place] [address] Dr. Obdulia Ng Basophils/100 WBC (Bld) 0.4 % Normal 0.2-2.0 [facility] Comment on above: Performed By: #### C VDTBH #### [facility] [address] [place] [address] Dr. Obdulia Ng EO # 0.0 103/ul Normal 0.0-0.7 [facility] Comment on above: Performed By: #### C VDTBH #### [facility] [address] [place] [address] Dr. Obdulia Ng Eosinophils/100 WBC (Bld) 0.0 % Critically low 0.9-7.0 [facility] Comment on above: Performed By: #### C VDTBH #### [facility] [address] [place] [address] Dr. Obdulia Ng Erythrocyte distribution width (RBC) [Ratio] 14.6 % Normal 11.0-15.0 [facility] Comment on above: Performed By: #### C VDTBH #### [facility] [address] [place] [address] Dr. Obdulia Ng Hematocrit (Bld) [Volume fraction] 40.8 % Critically low 42.0-54.0 [facility] Comment on above: Performed By: #### C VDTBH #### [facility] [address] [place] [address] Dr. Obdulia Ng Hemoglobin (Bld) [Mass/Vol] 13.3 g/dL Critically low 14.0-18.0 [facility] Comment on above: Performed By: #### C VDTBH #### [facility] [address] [address] [address] Obdulia Ng IG # 0.05 10e3/ul Critically high 0.00-0.03 [facility] Comment on above: Performed By: #### C VDTBH #### [facility] [address] [place] [address] Dr. Obdulia Ng IG % 0.4 % Normal 0.0-0.5 [facility] Comment on above: Performed By: #### C VDTBH #### [facility] [address] [place] [address] Dr. Obdulia Ng LYMPH # 0.5 103/ul Critically low 1.2-3.8 [facility] Comment on above: Performed By: #### C VDTBH #### [facility] [address] [place] [address] Dr. Obdulia Ng Lymphocytes/100 WBC (Bld) 3.7 % Critically low 20.5-60.0 [facility] Comment on above: Performed By: #### C VDTBH #### [facility] [address] [place] [address] Dr. Obdulia Ng MANUAL DIFF REQ NO Normal The [facility] Comment on above: Performed By: #### C VDTBH #### [facility] [address] [address] [address] Obdulia Ng MCH (RBC) [Entitic mass] 31.7 pg Normal 25.9-34.0 [facility] Comment on above: Performed By: #### C VDTBH #### [facility] [address] [place] [address] Dr. Obdulia Ng MCHC (RBC) [Mass/Vol] 32.6 g/dL Normal 29.9-35.2 The [facility] Comment on above: Performed By: #### C VDTBH #### [facility] [address] [place] [address] Dr. Obdulia Ng MCV (RBC) [Entitic vol] 97.1 fL Critically high 80.0-94.0 The [facility] Comment on above: Performed By: #### C VDTBH #### [facility] [address] [place] [address] Dr. Obdulia Ng MONO # 1.0 103/ul Critically high 0.3-0.8 The [facility] Comment on above: Performed By: #### C VDTBH #### [facility] [address] [place] [address] Dr. Obdulia gN Monocytes/100 WBC (Bld) 7.7 % Normal 1.7-12.0 [facility] Comment on above: Performed By: #### C VDTBH #### [facility] [address] [place] [address] Dr. Obdulia Ng NEUT # 11.3 103/ul Critically high 1.4-6.5 [facility] Comment on above: Performed By: #### C VDTBH #### [facility] [address] [place] [address] Dr. Obdulia Ng Neutrophils/100 WBC (Bld) 87.8 % Critically high 43.0-75.0 The [facility] Comment on above: Performed By: #### C VDTBH #### [facility] [address] [place] [address] Dr. Obdulia Ng Platelet mean volume (Bld) [Entitic vol] 10.2 fL Normal 9.5-13.5 The [facility] Comment on above: Performed By: #### C VDTBH #### [facility] [address] [place] [address] Dr. Obdulia Ng PLT 262 103/ul Normal 150-450 [facility] Comment on above: Performed By: #### C VDTBH #### [facility] [address] [place] [address] Dr. Obdulia Ng RBC 4.20 106/ul Critically low 4.70-6.10 The [facility] Comment on above: Performed By: #### C VDTBH #### [facility] [address] [place] [address] Dr. Obdulia Ng WBC 12.9 103/ul Critically high 4.0-11.0 [facility] Comment on above: Performed By: #### C VDTBH #### [facility] [address] [place] [address] Dr. Obdulia Ng CULTURE BLOODon 02-16-2022 Microscopic examination of blood, culture Culture Observations: NO GROWTH AT 5 DAYS. Normal [facility] Comment on above: Performed By: #### T SH, T4 #### [facility] [address] [place] [address] Dr. Obdulia Ng Microscopic examination of blood, culture Culture Observations: NO GROWTH AT 5 DAYS. Normal [facility] Comment on above: Performed By: #### T SH, T4 #### [facility] [address] [place] [address] Dr. Obdulia Ng CULTURE URINEon 02-16-2022 CULTURE URINE Culture Observations : NO GROWTH. Normal [facility] Comment on above: Performed By: #### T SH, T4 #### [facility] [address] [place] [address] Dr. Obdulia Ng Covid-19 PCR ([facility])on 01-22 SARS-CoV-2 (COVID-19) RNA SHELBY+probe Ql (Unsp spec) Detected Critically abnormal NOT DETECTED The [facility] Comment on above: Result Comment: This test is not yet approved or cleared by the [place] FDA. When there are no FDA-approved or cleared tests available, and other criteria are met, FDA can make tests available under an emergency access mechanism called an Emergency Use Authorization (EUA). The EUA for this test is supported by the [employer] Engineer of Health and Human Service's declaration that [...] used). Performed By: #### C BC #### [facility] [address] [place] [address] Dr. Obdulia Ng ER URINE PROFILEon 2 Bilirubin Ql (U) Negative Normal NEGATIVE [facility] Comment on above: Performed By: #### P OCGLUC #### [facility] [address] [place] [address] Dr. Obdulia Ng Clarity (U) SL CLOUDY Abnormal CLEAR [facility] Comment on above: Performed By: #### P OCGLUC #### [facility] [address] [place] [address] Dr. Obdulia Ng ERUAHD A micrscopic examina tion will be performed if indicated. Normal The [facility] Comment on above: Performed By: #### P OCGLUC #### [facility] [address] [place] [address] Dr. Obdulia Ng Glucose Ql (U) Negative Normal NEGATIVE The [facility] Comment on above: Performed By: #### P OCGLUC #### [facility] [address] [place] [address] Dr. Obdulia Ng Hemoglobin Ql (U) Negative Normal NEGATIVE The [facility] Comment on above: Performed By: #### P OCGLUC #### [facility] [address] [place] [address] Dr. Obdulia Ng Ketones Ql (U) Negative Normal NEGATIVE The [facility] Comment on above: Performed By: #### P OCGLUC #### [facility] [address] [address] [address] Obdulia Ng LEUKOCYTES TRACE Abnormal NEGATIVE [facility] Comment on above: Performed By: #### P OCGLUC #### [facility] [address] [place] [address] Dr. Obdulia Ng Nitrite Ql (U) Negative Normal NEGATIVE [facility] Comment on above: Performed By: #### P OCGLUC #### [facility] [address] [place] [address] Dr. Obdulia Ng pH (U) 5.5 [pH] Normal 5-9 The [facility] Comment on above: Performed By: #### P OCGLUC #### [facility] [address] [place] [address] Dr. Obdulia Ng SPEC GRAVITY 1.015 Normal 1.005-<=1. 025 The [facility] Comment on above: Performed By: #### P OCGLUC #### [facility] [address] [place] [address] Dr. Obdulia Ng UA PROTEIN Negative Normal NEGATIVE/ TRACE The [facility] Comment on above: Performed By: #### P OCGLUC #### [facility] [address] [place] [address] Dr. Obdulia Ng UR MICRO IND INDICATED Normal [facility] Comment on above: Performed By: #### P OCGLUC #### [facility] [address] [place] [address] Dr. Obdulia Ng Urobilinogen Qn (U) 1.0 {Cachorro'U}/dL Normal 0.2 - 1.0 The [facility] Comment on above: Performed By: #### P OCGLUC #### [facility] [address] [place] [address] Dr. Obdulia gN LACTATE/LACTIC ACIDon 2021 Lactate [Moles/Vol] 1.7 mmol/L Normal 0.4-1.9 The [facility] Comment on above: Performed By: #### P OCGLUC #### [facility] [address] [place] [address] Dr. Obdulia Ng Lactate [Moles/Vol] 2.7 mmol/L Critically high 0.4-1.9 [facility] Comment on above: Performed By: #### C BC #### [facility] [address] [place] [address] Dr. Obdulia Ng PH VENOUS BLOODon 02-16-2022 PCO2 VENOUS 40.5 mmHg Normal 40.0-52.0 [facility] Comment on above: Performed By: #### P TT, PT #### [facility] [address] [place] [address] Dr. Obdulia Ng pH VENOUS 7.368 Normal 7.330-7.43 0 [facility] Comment on above: Performed By: #### P TT, PT #### [facility] [address] [place] [address] Dr. Obdulia Ng POINT OF CARE GLUCOSEon 01-22 Glucose [Mass/Vol] 290 mg/dL Critically high 74-106 [facility] Comment on above: Performed By: #### C BC #### [facility] [address] [place] [address] Dr. Obdulia Ng PROF 14(COMP METB)on 022 Albumin [Mass/Vol] 3.5 g/dL Normal 3.4-5.0 [facility] Comment on above: Performed By: #### C BC #### [facility] [address] [place] [address] Dr. Obdulia gN Albumin/Globulin [Mass ratio] 1.2 {ratio} Normal [facility] Comment on above: Performed By: #### C BC #### [facility] [address] [place] [address] Dr. Obdulia Ng ALP [Catalytic activity/Vol] 78 U/L Normal 46-116 [facility] Comment on above: Performed By: #### C BC #### [facility] [address] [place] [address] Dr. Obdulia Ng ALT [Catalytic activity/Vol] 48 U/L Normal 16-63 [facility] Comment on above: Performed By: #### C BC #### [facility] [address] [place] [address] Dr. Obdulia Ng Anion gap [Moles/Vol] 15.4 mmol/L Normal [facility] Comment on above: Performed By: #### C BC #### [facility] [address] [place] [address] Dr. Obdulia Ng AST [Catalytic activity/Vol] 24 U/L Normal 15-37 [facility] Comment on above: Performed By: #### C BC #### [facility] [address] [address] [address] Obdulia Ng Bilirubin [Mass/Vol] 1.6 mg/dL Critically high 0.2-1.0 [facility] Comment on above: Performed By: #### C BC #### [facility] [address] [address] [address] Obdulia Ng Calcium [Mass/Vol] 8.7 mg/dL Normal 8.5-10.1 [facility] Comment on above: Performed By: #### C BC #### [facility] [address] [address] [address] Obdulia Ng Chloride [Moles/Vol] 103 mmol/L Normal 98-107 [facility] Comment on above: Performed By: #### C BC #### [facility] [address] [place] [address] Dr. Obdulia Ng CO2 [Moles/Vol] 22.9 mmol/L Normal 21.0-32.0 [facility] Comment on above: Performed By: #### C BC #### [facility] [address] [place] [address] Dr. Obdulia Ng Creatinine [Mass/Vol] 1.34 mg/dL Critically high 0.70-1.30 [facility] Comment on above: Performed By: #### C BC #### [facility] [address] [place] [address] Dr. Obdulia Ng EGFR-AF SOUTH AFRICAN >60 Normal >=60 [facility] Comment on above: Performed By: #### C BC #### [facility] [address] [place] [address] Dr. Obdulia Ng EGFR-NON AF SOUTH AFRICAN 51 mL/min/1.73m2 Critically low >=60 [facility] Comment on above: Performed By: #### C BC #### [facility] [address] [place] [address] Dr. Obdulia Ng Globulin (S) [Mass/Vol] 2.9 g/dL Normal The [facility] Comment on above: Performed By: #### C BC #### [facility] [address] [place] [address] Dr. Obdulia Ng Glucose [Mass/Vol] 181 mg/dL Critically high 74-106 [facility] Comment on above: Performed By: #### C BC #### [facility] [address] [address] [address] Obdulia Ng Potassium [Moles/Vol] 4.3 mmol/L Normal 3.5-5.1 [facility] Comment on above: Performed By: #### C BC #### [facility] [address] [address] [address] Obdulia Ng Protein [Mass/Vol] 6.4 g/dL Normal 6.4-8.2 [facility] Comment on above: Performed By: #### C BC #### [facility] [address] [address] [address] Obdulia Ng Sodium [Moles/Vol] 137 mmol/L Normal 136-145 [facility] Comment on above: Performed By: #### C BC #### [facility] [address] [address] [address] Obdulia Ng Urea nitrogen [Mass/Vol] 23.0 mg/dL Critically high 7.0-18.0 [facility] Comment on above: Performed By: #### C BC #### [facility] [address] [address] [address] Obdulia Ng Urea nitrogen/Creatini ne [Mass ratio] 17.2 mg/mg Normal [facility] Comment on above: Performed By: #### C BC #### [facility] [address] [address] [address] Obdulia Ng PROTIMEon 02-16-2022 INR Coag (PPP) [Relative time] 2.40 {INR} Normal [facility] Comment on above: Performed By: #### P OCGLUC #### [facility] [address] [address] [address] Obdulia Ng INR GUIDELINES SEE BELOW Normal The [facility] Comment on above: Result Comment: BRAD RED INR: 2.0 - 3.0 CONDITIONS NOT LISTED BELOW 2.5 - 3.5 FOR PROSTHETIC HEART VALVE REPLACEMENT 2.5 - 3.5 RECURRENT THROMBOSIS Performed By: #### P OCGLUC #### [facility] [address] [place] [address] Dr. Obdulia Ng PT Coag (PPP) [Time] 24.5 s Critically high 9.0-11.6 [facility] Comment on above: Performed By: #### P OCGLUC #### [facility] [address] [place] [address] Dr. Obdulia Ng PTTon 02-16-2022 aPTT Coag (Bld) [Time] 31.4 s Normal 22.3-36.2 The [facility] Comment on above: Performed By: #### P OCGLUC #### [facility] [address] [place] [address] Dr. Obdulia Ng TROPONIN, HIGH SENSITIVITYon 02-16-2022 HSTROP 18.2 pg/mL Normal 4.0-76.1 [facility] Comment on above: Result Comment: CUT- OFF POINTS HAVE BEEN ESTABLISHED BASED ON THE FOURTH UNIVERSAL DEFINITIONS OF MYOCARDIAL INFARCTION. THE UPPER REFERENCE LIMIT (URL) OF TROPONIN, DEFINED THE 99TH PERCENTILE OF cTnI DISTRIBUTION IN A REFERENCE POPULATION, HAS BEEN CONFIRMED THE DECISION THRESHOLD FOR [place] DIAGNOSIS. Performed By: #### C BC #### [facility] [address] [place] [address] Dr. Obdulia Ng URINE MICROSCOPIC ONLYon BACTERIA TRACE Abnormal NONE SEEN [facility] Comment on above: Performed By: #### P OCGLUC #### [facility] [address] [place] [address] Dr. Obdulia Ng Bacteria identified Cx Nom (U) INDICATED Normal The [facility] Comment on above: Performed By: #### P OCGLUC #### [facility] [address] [place] [address] Dr. Obdulia Ng CAST NONE SEEN Normal NONE SEEN The [facility] Comment on above: Performed By: #### P OCGLUC #### [facility] [address] [place] [address] Dr. Obdulia Ng Crystals LM Nom (Urine sed) NONE SEEN Normal NONE SEEN [facility] Comment on above: Performed By: #### P OCGLUC #### [facility] [address] [address] [address] Obdulia Ng Epithelial cells LM Ql (Urine sed) FEW Abnormal NONE SEEN /RARE The [facility] Comment on above: Performed By: #### P OCGLUC #### [facility] [address] [address] [address] Obdulia Ng MUCOUS NONE SEEN Normal NONE SEEN The [facility] Comment on above: Performed By: #### P OCGLUC #### [facility] [address] [address] [address] Obdulia Ng RBC NONE SEEN Abnormal 0-2 [facility] Comment on above: Performed By: #### P OCGLUC #### [facility] [address] [address] [address] Obdulia Ng WBC 2-5 Abnormal NONE SEEN The [facility] Comment on above: Performed By: #### P OCGLUC #### [facility] [address] [place] [address] Dr. Obdulia Ng XR CHEST 1 Von [...] by: CHEPE ROLLINS Date: 2022-02-16 15:14 Normal [facility] Abstracton 01-30-2022 Abstract [id number] Joby Bergman 1940 M Date Provider Department Center 01/30/2022 Roberta-HUGO CORCORAN [facility] Family History Problem Relation Age of Onset Heart attack Father Family Status - Relation Status Age at Father Normal [facility] BNPon 12-24-2021 Natriuretic peptide B (Bld) [Mass/Vol] 8490.0 pg/mL Critically high <=1,800.0 [facility] Comment on above: Performed By: #### C BC #### [facility] [address] [place] [address] Dr. Obdulia Ng CBC AUTO DIFFon 12-24-2021 BASO # 0.1 103/ul Normal 0.0-0.1 [facility] Comment on above: Performed By: #### C BC #### [facility] [address] [place] [address] Dr. Obdulia Ng Basophils/100 WBC (Bld) 0.7 % Normal 0.2-2.0 [facility] Comment on above: Performed By: #### C BC #### [facility] [address] [place] [address] Dr. Obdulia Ng EO # 0.1 103/ul Normal 0.0-0.7 [facility] Comment on above: Performed By: #### C BC #### [facility] [address] [place] [address] Dr. Obdulia Ng Eosinophils/100 WBC (Bld) 0.8 % Critically low 0.9-7.0 [facility] Comment on above: Performed By: #### C BC #### [facility] [address] [place] [address] Dr. Obdulia Ng Erythrocyte distribution width (RBC) [Ratio] 13.2 % Normal 11.0-15.0 [facility] Comment on above: Performed By: #### C BC #### [facility] [address] [place] [address] Dr. Obdulia Ng Hematocrit (Bld) [Volume fraction] 38.7 % Critically low 42.0-54.0 [facility] Comment on above: Performed By: #### C BC #### [facility] [address] [place] [address] Dr. Obdulia Ng Hemoglobin (Bld) [Mass/Vol] 12.6 g/dL Critically low 14.0-18.0 [facility] Comment on above: Performed By: #### C BC #### [facility] [address] [place] [address] Dr. Obdulia Ng IG # 0.03 10e3/ul Normal 0.00-0.03 [facility] Comment on above: Performed By: #### C BC #### [facility] [address] [place] [address] Dr. Obdulia Ng IG % 0.3 % Normal 0.0-0.5 [facility] Comment on above: Performed By: #### C BC #### [facility] [address] [place] [address] Dr. Obdulia Ng LYMPH # 1.7 103/ul Normal 1.2-3.8 [facility] Comment on above: Performed By: #### C BC #### [facility] [address] [place] [address] Dr. Obdulia Ng Lymphocytes/100 WBC (Bld) 18.9 % Critically low 20.5-60.0 [facility] Comment on above: Performed By: #### C BC #### [facility] [address] [place] [address] Dr. Obdulia Ng MANUAL DIFF REQ NO [facility] Comment on above: Performed By: #### C BC #### [facility] [address] [place] [address] Dr. Obdulia Ng MCH (RBC) [Entitic mass] 31.3 pg Normal 25.9-34.0 [facility] Comment on above: Performed By: #### C BC #### [facility] [address] [place] [address] Dr. Obdulia Ng MCHC (RBC) [Mass/Vol] 32.6 g/dL Normal 29.9-35.2 [facility] Comment on above: Performed By: #### C BC #### [facility] [address] [place] [address] Dr. Obdulia Ng MCV (RBC) [Entitic vol] 96.0 fL Critically high 80.0-94.0 [facility] Comment on above: Performed By: #### C BC #### [facility] [address] [place] [address] Dr. Obdulia Ng MONO # 0.8 103/ul Normal 0.3-0.8 [facility] Comment on above: Performed By: #### C BC #### [facility] [address] [place] [address] Dr. Obdulia Ng Monocytes/100 WBC (Bld) 9.0 % Normal 1.7-12.0 [facility] Comment on above: Performed By: #### C BC #### [facility] [address] [place] [address] Dr. Obdulia Ng NEUT # 6.1 103/ul Normal 1.4-6.5 [facility] Comment on above: Performed By: #### C BC #### [facility] [address] [place] [address] Dr. Obdulia Ng Neutrophils/100 WBC (Bld) 70.3 % Normal 43.0-75.0 [facility] Comment on above: Performed By: #### C BC #### [facility] [address] [place] [address] Dr. Obdulia Ng Platelet mean volume (Bld) [Entitic vol] 9.5 fL Normal 9.5-13.5 [facility] Comment on above: Performed By: #### C BC #### [facility] [address] [place] [address] Dr. Obdulia Ng PLT 307 103/ul Normal 150-450 [facility] Comment on above: Performed By: #### C BC #### [facility] [address] [place] [address] Dr. Odbulia Ng RBC 4.03 106/ul Critically low 4.70-6.10 The [facility] Comment on above: Performed By: #### C BC #### [facility] [address] [place] [address] Dr. Obdulia Ng WBC 8.7 103/ul Normal 4.0-11.0 The [facility] Comment on above: Performed By: #### C BC #### [facility] [address] [place] [address] Dr. Obdulia Ng PROF 14(COMP METB)on 022 Albumin [Mass/Vol] 3.3 g/dL Critically low 3.4-5.0 [facility] Comment on above: Performed By: #### C BC #### [facility] [address] [place] [address] Dr. Obdulia Ng Albumin/Globulin [Mass ratio] 1.1 {ratio} Normal [facility] Comment on above: Performed By: #### C BC #### [facility] [address] [place] [address] Dr. Obdulia Ng ALP [Catalytic activity/Vol] 74 U/L Normal 46-116 [facility] Comment on above: Performed By: #### C BC #### [facility] [address] [place] [address] Dr. Obdulia Ng ALT [Catalytic activity/Vol] 51 U/L Normal 16-63 [facility] Comment on above: Performed By: #### C BC #### [facility] [address] [place] [address] Dr. Obdulia Ng Anion gap [Moles/Vol] 12.8 mmol/L Normal [facility] Comment on above: Performed By: #### C BC #### [facility] [address] [place] [address] Dr. Obdulia Ng AST [Catalytic activity/Vol] 24 U/L Normal 15-37 [facility] Comment on above: Performed By: #### C BC #### [facility] [address] [place] [address] Dr. Obdulia Ng Bilirubin [Mass/Vol] 1.1 mg/dL Critically high 0.2-1.0 The [facility] Comment on above: Performed By: #### C BC #### [facility] [address] [place] [address] Dr. Obdulia Ng Calcium [Mass/Vol] 8.7 mg/dL Normal 8.5-10.1 The [facility] Comment on above: Performed By: #### C BC #### [facility] [address] [place] [address] Dr. Obdulia gN Chloride [Moles/Vol] 103 mmol/L Normal 98-107 The [facility] Comment on above: Performed By: #### C BC #### [facility] [address] [address] [address] Obdulia Ng CO2 [Moles/Vol] 29.8 mmol/L Normal 21.0-32.0 [facility] Comment on above: Performed By: #### C BC #### [facility] [address] [address] [address] Obdulia Ng Creatinine [Mass/Vol] 1.22 mg/dL Normal 0.70-1.30 The [facility] Comment on above: Performed By: #### C BC #### [facility] [address] [place] [address] Dr. Obdulia Ng EGFR-AF SOUTH AFRICAN >60 Normal >=60 [facility] Comment on above: Performed By: #### C BC #### [facility] [address] [place] [address] Dr. Obdulia Ng EGFR-NON AF SOUTH AFRICAN 57 mL/min/1.73m2 Critically low >=60 The [facility] Comment on above: Performed By: #### C BC #### [facility] [address] [place] [address] Dr. Obdulia Ng Globulin (S) [Mass/Vol] 3.1 g/dL Normal The [facility] Comment on above: Performed By: #### C BC #### [facility] [address] [place] [address] Dr. Obdulia Ng Glucose [Mass/Vol] 104 mg/dL Normal 74-106 The [facility] Comment on above: Performed By: #### C BC #### [facility] [address] [place] [address] Dr. Obdulia Ng Potassium [Moles/Vol] 3.6 mmol/L Normal 3.5-5.1 [facility] Comment on above: Performed By: #### C BC #### [facility] [address] [place] [address] Dr. Obdulia Ng Protein [Mass/Vol] 6.4 g/dL Normal 6.4-8.2 The [facility] Comment on above: Performed By: #### C BC #### [facility] [address] [place] [address] Dr. Obdulia Ng Sodium [Moles/Vol] 142 mmol/L Normal 136-145 The [facility] Comment on above: Performed By: #### C BC #### [facility] [address] [place] [address] Dr. Obdulia Ng Urea nitrogen [Mass/Vol] 20.0 mg/dL Critically high 7.0-18.0 [facility] Comment on above: Performed By: #### C BC #### [facility] [address] [place] [address] Dr. Obdulia Ng Urea nitrogen/Creatini ne [Mass ratio] 16.4 mg/mg Normal [facility] Comment on above: Performed By: #### C BC #### [facility] [address] [place] [address] Dr. Obdulia Ng T3, TOTAL (TRIIODOTHYRONINE) on 12-24-2021 T3, TOTAL 94 ng/dL Normal 71-180 [facility] Comment on above: Performed By: #### P TT, PT #### [facility] [address] [place] [address] Dr. Obdulia Ng BNPon 2021 Natriuretic peptide B (Bld) [Mass/Vol] 6998.0 pg/mL Critically high <=1,800.0 [facility] Comment on above: Performed By: #### P OCGLUC #### [facility] [address] [place] [address] Dr. Obdulia Ng CARDIAC MARIPOSA 3-6on 2 CK [Catalytic activity/Vol] 86 U/L Normal 39-308 [facility] Comment on above: Performed By: #### P TT, PT #### [facility] [address] [place] [address] Dr. Obdulia Ng CK.MB [Mass/Vol] 2.13 ng/mL Normal <=3.60 [facility] Comment on above: Performed By: #### P TT, PT #### [facility] [address] [place] [address] Dr. Obdulia Ng HSTROP 14.4 pg/mL Normal 4.0-76.1 [facility] Comment on above: Result Comment: CUT- OFF POINTS HAVE BEEN ESTABLISHED BASED ON THE FOURTH UNIVERSAL DEFINITIONS OF MYOCARDIAL INFARCTION. THE UPPER REFERENCE LIMIT (URL) OF TROPONIN, DEFINED THE 99TH PERCENTILE OF cTnI DISTRIBUTION IN A REFERENCE POPULATION, HAS BEEN CONFIRMED THE DECISION THRESHOLD FOR [place] DIAGNOSIS. Performed By: #### P TT, PT #### [facility] [address] [place] [address] Dr. Obdulia Ng CK [Catalytic activity/Vol] 84 U/L Normal 39-308 [facility] Comment on above: Performed By: #### P OCGLUC #### [facility] [address] [place] [address] Dr. Obdulia Ng CK.MB [Mass/Vol] 2.16 ng/mL Normal <=3.60 [facility] Comment on above: Performed By: #### P OCGLUC #### [facility] [address] [place] [address] Dr. Obdulia Ng HSTROP 15.8 pg/mL Normal 4.0-76.1 [facility] Comment on above: Result Comment: CUT- OFF POINTS HAVE BEEN ESTABLISHED BASED ON THE FOURTH UNIVERSAL DEFINITIONS OF MYOCARDIAL INFARCTION. THE UPPER REFERENCE LIMIT (URL) OF TROPONIN, DEFINED THE 99TH PERCENTILE OF cTnI DISTRIBUTION IN A REFERENCE POPULATION, HAS BEEN CONFIRMED THE DECISION THRESHOLD FOR [place] DIAGNOSIS. Performed By: #### P OCGLUC #### [facility] [address] [place] [address] Dr. Obdulia Ng CBC AUTO DIFFon 2021 BASO # 0.0 103/ul Normal 0.0-0.1 [facility] Comment on above: Performed By: #### C BC #### [facility] [address] [place] [address] Dr. Obdulia Ng Basophils/100 WBC (Bld) 0.4 % Normal 0.2-2.0 The [facility] Comment on above: Performed By: #### C BC #### [facility] [address] [place] [address] Dr. Obdulia Ng EO # 0.0 103/ul Normal 0.0-0.7 [facility] Comment on above: Performed By: #### C BC #### [facility] [address] [address] [address] Obdulia Ng Eosinophils/100 WBC (Bld) 0.2 % Critically low 0.9-7.0 [facility] Comment on above: Performed By: #### C BC #### [facility] [address] [place] [address] Dr. Obdulia gN Erythrocyte distribution width (RBC) [Ratio] 13.2 % Normal 11.0-15.0 [facility] Comment on above: Performed By: #### C BC #### [facility] [address] [place] [address] Dr. Obdulia Ng Hematocrit (Bld) [Volume fraction] 35.1 % Critically low 42.0-54.0 [facility] Comment on above: Performed By: #### C BC #### [facility] [address] [place] [address] Dr. Obdulia Ng Hemoglobin (Bld) [Mass/Vol] 11.6 g/dL Critically low 14.0-18.0 [facility] Comment on above: Performed By: #### C BC #### [facility] [address] [place] [address] Dr. Obdulia Ng IG # 0.04 10e3/ul Critically high 0.00-0.03 [facility] Comment on above: Performed By: #### C BC #### [facility] [address] [place] [address] Dr. Obdulia Ng IG % 0.4 % Normal 0.0-0.5 [facility] Comment on above: Performed By: #### C BC #### [facility] [address] [place] [address] Dr. Obdulia Ng LYMPH # 0.7 103/ul Critically low 1.2-3.8 [facility] Comment on above: Performed By: #### C BC #### [facility] [address] [place] [address] Dr. Obdulia Ng Lymphocytes/100 WBC (Bld) 6.9 % Critically low 20.5-60.0 [facility] Comment on above: Performed By: #### C BC #### [facility] [address] [place] [address] Dr. Obdulia Ng MANUAL DIFF REQ NO Normal [facility] Comment on above: Performed By: #### C BC #### [facility] [address] [place] [address] Dr. Obdulia Ng MCH (RBC) [Entitic mass] 31.6 pg Normal 25.9-34.0 [facility] Comment on above: Performed By: #### C BC #### [facility] [address] [place] [address] Dr. Obdulia Ng MCHC (RBC) [Mass/Vol] 33.0 g/dL Normal 29.9-35.2 [facility] Comment on above: Performed By: #### C BC #### [facility] [address] [place] [address] Dr. Obdulia Ng MCV (RBC) [Entitic vol] 95.6 fL Critically high 80.0-94.0 [facility] Comment on above: Performed By: #### C BC #### [facility] [address] [place] [address] Dr. Obdulia Ng MONO # 0.6 103/ul Normal 0.3-0.8 [facility] Comment on above: Performed By: #### C BC #### [facility] [address] [place] [address] Dr. Obdulia Ng Monocytes/100 WBC (Bld) 5.7 % Normal 1.7-12.0 [facility] Comment on above: Performed By: #### C BC #### [facility] [address] [place] [address] Dr. Obdulia Ng NEUT # 8.8 103/ul Critically high 1.4-6.5 [facility] Comment on above: Performed By: #### C BC #### [facility] [address] [place] [address] Dr. Obdulia Ng Neutrophils/100 WBC (Bld) 86.4 % Critically high 43.0-75.0 [facility] Comment on above: Performed By: #### C BC #### [facility] [address] [address] [address] Obdulia Ng Platelet mean volume (Bld) [Entitic vol] 9.2 fL Critically low 9.5-13.5 [facility] Comment on above: Performed By: #### C BC #### [facility] [address] [address] [address] Obdulia Ng PLT 268 103/ul Normal 150-450 [facility] Comment on above: Performed By: #### C BC #### [facility] [address] [address] [address] Obdulia Ng RBC 3.67 106/ul Critically low 4.70-6.10 [facility] Comment on above: Performed By: #### C BC #### [facility] [address] [place] [address] Dr. Obdulia Ng WBC 10.2 103/ul Normal 4.0-11.0 [facility] Comment on above: Performed By: #### C BC #### [facility] [address] [place] [address] Dr. Obdulia Ng CULTURE URINEon 2021 CULTURE URINE Culture Observations : NO GROWTH. Normal The [facility] Comment on above: Performed By: #### T SH, T4 #### [facility] [address] [place] [address] Dr. Obdulia Ng Covid-19 PCR (CVDTB)on SARS-CoV-2 (COVID-19) RNA SHELBY+probe Ql (Unsp spec) Not detected Normal NOT DETECTED The [facility] Comment on above: Result Comment: When diagnostic [...] for this test is supported by the [place] of Health and Human Service's declaration that [...] used). Performed By: #### P OCGLUC #### [facility] [address] [place] [address] Dr. Obdulia Ng ECHOCARDIO M/2D COMPLETEon 0 2021 ECHOCARDIO M/2D COMPLETE Patient: ELVIRA BERGMAN Exam Date: 2021 : 1940 Gender:M Ordering : DR BRIDGET FARLEY . Admission #: [id number] Family : Order #: [id number] CLICK HERE TO VIEW EXAM ECHOCARDIOGRAM REPORT [...] M.D. on 2021 at 17:33 Normal The [facility] POINT OF CARE GLUCOSEon 08-0 Glucose [Mass/Vol] 116 mg/dL Critically high 74-106 [facility] Comment on above: Performed By: #### C BC #### [facility] [address] [address] [address] Obdulia Ng Glucose [Mass/Vol] 233 mg/dL Critically high 74-106 [facility] Comment on above: Performed By: #### P OCGLUC #### [facility] [address] [address] [address] Obdulia Ng PROF CHEM 8 (BAS METB)on Anion gap [Moles/Vol] 14.5 mmol/L Normal [facility] Comment on above: Performed By: #### P OCGLUC #### [facility] [address] [address] [address] Obdulia Ng Calcium [Mass/Vol] 8.5 mg/dL Normal 8.5-10.1 [facility] Comment on above: Performed By: #### P OCGLUC #### [facility] [address] [address] [address] Obdulia Ng Chloride [Moles/Vol] 105 mmol/L Normal 98-107 [facility] Comment on above: Performed By: #### P OCGLUC #### [facility] [address] [address] [address] Obdulia Ng CO2 [Moles/Vol] 23.8 mmol/L Normal 21.0-32.0 [facility] Comment on above: Performed By: #### P OCGLUC #### [facility] [address] [address] [address] Obdulia Ng Creatinine [Mass/Vol] 1.08 mg/dL Normal 0.70-1.30 [facility] Comment on above: Performed By: #### P OCGLUC #### [facility] [address] [address] [address] Obdulia Ng EGFR-AF SOUTH AFRICAN >60 Normal >=60 [facility] Comment on above: Performed By: #### P OCGLUC #### [facility] [address] [address] [address] Obdulia Ng EGFR-NON AF SOUTH AFRICAN >60 Normal >=60 [facility] Comment on above: Performed By: #### P OCGLUC #### [facility] [address] [address] [address] Obdulia Ng Glucose [Mass/Vol] 172 mg/dL Critically high 74-106 [facility] Comment on above: Performed By: #### P OCGLUC #### [facility] [address] [address] [address] Obdulia Ng Potassium [Moles/Vol] 4.3 mmol/L Normal 3.5-5.1 [facility] Comment on above: Performed By: #### P OCGLUC #### [facility] [address] [address] [address] Obdulia Ng Sodium [Moles/Vol] 139 mmol/L Normal 136-145 [facility] Comment on above: Performed By: #### P OCGLUC #### [facility] [address] [address] [address] Obdulia Ng Urea nitrogen [Mass/Vol] 17.0 mg/dL Normal 7.0-18.0 [facility] Comment on above: Performed By: #### P OCGLUC #### [facility] [address] [address] [address] Obdulia Ng Urea nitrogen/Creatini ne [Mass ratio] 15.7 mg/mg Normal [facility] Comment on above: Performed By: #### P OCGLUC #### [facility] [address] [address] [address] bOdulia Ng T4on 2021 T4 [Mass/Vol] 7.50 ug/dL Normal 4.50-12.10 [facility] Comment on above: Performed By: #### T SH, T4 #### [facility] [address] [place] [address] Dr. Obdulia Ng TROPONIN, HIGH SENSITIVITYon 2021 HSTROP 15.3 pg/mL Normal 4.0-76.1 [facility] Comment on above: Result Comment: CUT- OFF POINTS HAVE BEEN ESTABLISHED BASED ON THE FOURTH UNIVERSAL DEFINITIONS OF MYOCARDIAL INFARCTION. THE UPPER REFERENCE LIMIT (URL) OF TROPONIN, DEFINED THE 99TH PERCENTILE OF cTnI DISTRIBUTION IN A REFERENCE POPULATION, HAS BEEN CONFIRMED THE DECISION THRESHOLD FOR [place] DIAGNOSIS. Performed By: #### P OCGLUC #### [facility] [address] [place] [address] Dr. Obdulia Ng TSHon 2021 TSH 0.904 uIU/mL Normal 0.358-3.74 0 [facility] Comment on above: Performed By: #### T SH, T4 #### [facility] [address] [place] [address] Dr. Obdulia Ng UA RANDOM W/MICROSCOPICon BACTERIA NONE SEEN Normal NONE SEEN [facility] Comment on above: Performed By: #### T SH, T4 #### [facility] [address] [place] [address] Dr. Obdulia Ng Bilirubin Ql (U) Negative Normal NEGATIVE [facility] Comment on above: Performed By: #### T SH, T4 #### [facility] [address] [place] [address] Dr. Obdulia Ng CAST NONE SEEN Normal NONE SEEN [facility] Comment on above: Performed By: #### T SH, T4 #### [facility] [address] [place] [address] Dr. Obdulia Ng Clarity (U) CLEAR Normal CLEAR The [facility] Comment on above: Performed By: #### T SH, T4 #### [facility] [address] [place] [address] Dr. Obdulia Ng Color (U) LT. YELLOW Normal YELLOW The [facility] Comment on above: Performed By: #### T SH, T4 #### [facility] [address] [place] [address] Dr. Obdulia Ng Crystals LM Nom (Urine sed) NONE SEEN Normal NONE SEEN The [facility] Comment on above: Performed By: #### T SH, T4 #### [facility] [address] [place] [address] Dr. Obdulia Ng Epithelial cells LM Ql (Urine sed) NONE SEEN Normal NONE SEEN /RARE The [facility] Comment on above: Performed By: #### T SH, T4 #### [facility] [address] [place] [address] Dr. Obdluia Ng Glucose Ql (U) Negative Normal NEGATIVE [facility] Comment on above: Performed By: #### T SH, T4 #### [facility] [address] [place] [address] Dr. Obdulia Ng Hemoglobin Ql (U) Negative Normal NEGATIVE The [facility] Comment on above: Performed By: #### T SH, T4 #### [facility] [address] [place] [address] Dr. Obdulia Ng Ketones Ql (U) Negative Normal NEGATIVE [facility] Comment on above: Performed By: #### T SH, T4 #### [facility] [address] [place] [address] Dr. Obdulia Ng LEUKOCYTES Negative Normal NEGATIVE [facility] Comment on above: Performed By: #### T SH, T4 #### [facility] [address] [place] [address] Dr. Obdulia Ng MUCOUS NONE SEEN Normal NONE SEEN [facility] Comment on above: Performed By: #### T SH, T4 #### [facility] [address] [place] [address] Dr. Obdulia Ng Nitrite Ql (U) Negative Normal NEGATIVE [facility] Comment on above: Performed By: #### T SH, T4 #### [facility] [address] [place] [address] Dr. Obdulia Ng pH (U) 6.0 [pH] Normal 5-9 [facility] Comment on above: Performed By: #### T SH, T4 #### [facility] [address] [place] [address] Dr. Obdulia Ng RBC NONE SEEN Abnormal 0-2 [facility] Comment on above: Performed By: #### T SH, T4 #### [facility] [address] [address] [address] Obdulia Ng SPEC GRAVITY 1.010 Normal 1.005-<=1. 025 [facility] Comment on above: Performed By: #### T SH, T4 #### [facility] [address] [address] [address] Obdulia Ng UA PROTEIN Negative Normal NEGATIVE/ TRACE The [facility] Comment on above: Performed By: #### T SH, T4 #### [facility] [address] [address] [address] Obdulia Ng Urobilinogen Qn (U) 1.0 {Cachorro'U}/dL Normal 0.2 - 1.0 [facility] Comment on above: Performed By: #### T SH, T4 #### [facility] [address] [place] [address] Dr. Obdulia Ng WBC NONE SEEN Normal NONE SEEN The [facility] Comment on above: Performed By: #### T SH, T4 #### [facility] [address] [place] [address] Dr. Obdulia Ng XR CHEST 1 Von [...] BROOKS STEPHENSON Date: 2021 11:26 Normal The [facility] CBC AUTO DIFFon 11-17-2021 BASO # 0.0 103/ul Normal 0.0-0.1 [facility] Comment on above: Performed By: #### P OCGLUC #### [facility] [address] [address] [address] Obdulia Ng Basophils/100 WBC (Bld) 0.3 % Normal 0.2-2.0 [facility] Comment on above: Performed By: #### P OCGLUC #### [facility] [address] [address] [address] Obdulia Ng EO # 0.0 103/ul Normal 0.0-0.7 [facility] Comment on above: Performed By: #### P OCGLUC #### [facility] [address] [address] [address] Obdulia Ng Eosinophils/100 WBC (Bld) 0.1 % Critically low 0.9-7.0 [facility] Comment on above: Performed By: #### P OCGLUC #### [facility] [address] [place] [address] Dr. Obdulia Ng Erythrocyte distribution width (RBC) [Ratio] 12.9 % Normal 11.0-15.0 [facility] Comment on above: Performed By: #### P OCGLUC #### [facility] [address] [place] [address] Dr. Obdulia Ng Hematocrit (Bld) [Volume fraction] 38.4 % Critically low 42.0-54.0 [facility] Comment on above: Performed By: #### P OCGLUC #### [facility] [address] [place] [address] Dr. Obdulia Ng Hemoglobin (Bld) [Mass/Vol] 12.7 g/dL Critically low 14.0-18.0 [facility] Comment on above: Performed By: #### P OCGLUC #### [facility] [address] [place] [address] Dr. Obdulia Ng IG # 0.03 10e3/ul Normal 0.00-0.03 [facility] Comment on above: Performed By: #### P OCGLUC #### [facility] [address] [place] [address] Dr. Obdulia Ng IG % 0.3 % Normal 0.0-0.5 [facility] Comment on above: Performed By: #### P OCGLUC #### [facility] [address] [address] [address] Obdulia Ng LYMPH # 0.8 103/ul Critically low 1.2-3.8 [facility] Comment on above: Performed By: #### P OCGLUC #### [facility] [address] [address] [address] Obdulia Ng Lymphocytes/100 WBC (Bld) 7.2 % Critically low 20.5-60.0 [facility] Comment on above: Performed By: #### P OCGLUC #### [facility] [address] [address] [address] Obdulia Ng MANUAL DIFF REQ NO [facility] Comment on above: Performed By: #### P OCGLUC #### [facility] [address] [address] [address] Obdulia Ng MCH (RBC) [Entitic mass] 32.2 pg Normal 25.9-34.0 [facility] Comment on above: Performed By: #### P OCGLUC #### [facility] [address] [address] [address] Obdulia Ng MCHC (RBC) [Mass/Vol] 33.1 g/dL Normal 29.9-35.2 [facility] Comment on above: Performed By: #### P OCGLUC #### [facility] [address] [address] [address] Obdulia Ng MCV (RBC) [Entitic vol] 97.5 fL Critically high 80.0-94.0 [facility] Comment on above: Performed By: #### P OCGLUC #### [facility] [address] [address] [address] Obdulia Ng MONO # 1.0 103/ul Critically high 0.3-0.8 [facility] Comment on above: Performed By: #### P OCGLUC #### [facility] [address] [address] [address] Obdulia Ng Monocytes/100 WBC (Bld) 9.9 % Normal 1.7-12.0 [facility] Comment on above: Performed By: #### P OCGLUC #### [facility] [address] [address] [address] Obdulia Ng NEUT # 8.6 103/ul Critically high 1.4-6.5 [facility] Comment on above: Performed By: #### P OCGLUC #### [facility] [address] [address] [address] Obdulia Ng Neutrophils/100 WBC (Bld) 82.2 % Critically high 43.0-75.0 [facility] Comment on above: Performed By: #### P OCGLUC #### [facility] [address] [address] [address] Obdulia Ng Platelet mean volume (Bld) [Entitic vol] 10.3 fL Normal 9.5-13.5 [facility] Comment on above: Performed By: #### P OCGLUC #### [facility] [address] [address] [address] Obdulia Ng PLT 202 103/ul Normal 150-450 [facility] Comment on above: Performed By: #### P OCGLUC #### [facility] [address] [address] [address] Obdulia Ng RBC 3.94 106/ul Critically low 4.70-6.10 [facility] Comment on above: Performed By: #### P OCGLUC #### [facility] [address] [address] [address] Obdulia Ng WBC 10.4 103/ul Normal 4.0-11.0 [facility] Comment on above: Performed By: #### P OCGLUC #### [facility] [address] [address] [address] Obdulia Ng PROF CHEM 8 (BAS METB)on Anion gap [Moles/Vol] 12.9 mmol/L Normal [facility] Comment on above: Performed By: #### T SH, T4 #### [facility] [address] [address] [address] Obdulia Ng Calcium [Mass/Vol] 8.6 mg/dL Normal 8.5-10.1 [facility] Comment on above: Performed By: #### T SH, T4 #### [facility] [address] [place] [address] Dr. Obdulia Ng Chloride [Moles/Vol] 102 mmol/L Normal 98-107 [facility] Comment on above: Performed By: #### T SH, T4 #### [facility] [address] [place] [address] Dr. Obdulia Ng CO2 [Moles/Vol] 25.8 mmol/L Normal 21.0-32.0 [facility] Comment on above: Performed By: #### T SH, T4 #### [facility] [address] [place] [address] Dr. Obdulia Ng Creatinine [Mass/Vol] 1.03 mg/dL Normal 0.70-1.30 [facility] Comment on above: Performed By: #### T SH, T4 #### [facility] [address] [place] [address] Dr. Obdulia Ng EGFR-AF SOUTH AFRICAN >60 Normal >=60 [facility] Comment on above: Performed By: #### T SH, T4 #### [facility] [address] [place] [address] Dr. Obdulia Ng EGFR-NON AF SOUTH AFRICAN >60 Normal >=60 [facility] Comment on above: Performed By: #### T SH, T4 #### [facility] [address] [place] [address] Dr. Obdulia Ng Glucose [Mass/Vol] 164 mg/dL Critically high 74-106 The [facility] Comment on above: Performed By: #### T SH, T4 #### [facility] [address] [place] [address] Dr. Obdulia Ng Potassium [Moles/Vol] 3.7 mmol/L Normal 3.5-5.1 The [facility] Comment on above: Performed By: #### T SH, T4 #### [facility] [address] [place] [address] Dr. Obdulia Ng Sodium [Moles/Vol] 137 mmol/L Normal 136-145 The [facility] Comment on above: Performed By: #### T SH, T4 #### [facility] [address] [address] [address] Obdluia Ng Urea nitrogen [Mass/Vol] 15.0 mg/dL Normal 7.0-18.0 [facility] Comment on above: Performed By: #### T SH, T4 #### [facility] [address] [address] [address] Obdulia Ng Urea nitrogen/Creatini ne [Mass ratio] 14.6 mg/mg Normal [facility] Comment on above: Performed By: #### T SH, T4 #### [facility] [address] [address] [address] Obdulia Ng TROPONIN, HIGH SENSITIVITYon 11-17-2021 HSTROP 16.2 pg/mL Normal 4.0-76.1 [facility] Comment on above: Result Comment: CUT- OFF POINTS HAVE BEEN ESTABLISHED BASED ON THE FOURTH UNIVERSAL DEFINITIONS OF MYOCARDIAL INFARCTION. THE UPPER REFERENCE LIMIT (URL) OF TROPONIN, DEFINED THE 99TH PERCENTILE OF cTnI DISTRIBUTION IN A REFERENCE POPULATION, HAS BEEN CONFIRMED THE DECISION THRESHOLD FOR [place] DIAGNOSIS. Performed By: #### T SH, T4 #### [facility] [address] [place] [address] Dr. Obdulia Ng XR CHEST 1 Von [...] MONTES DE OCA Date: 2021-11-17 09:11 Normal [facility] Discharge Summaryon 02-16-20 17 Discharge Summary MR#: [id number] [facility]khdeep [facility] Pt. Name: Elvira Bergman Admitted: 02/11/2017 Discharged: [...] acute ST-elevationMI. He was flown in from [facility] for emergency cath. His LADwas found to [...] Dict: 02/14/2017/03:49 P/Xin Hernandez Trans: 02/14/2017 10:56 P/Jimy_JN:[id number]: Bridget [place] M.D. [address] [place] [address] Normal [facility] BNP (B-TYPE NATRIURETIC PEPT LEANDER)on 02-12-2017 BNP 211 pg/mL High 0-100 [facility] Comment on above: Order Comment: No: D o not add to previous draw Result Comment: Give n the appropriate clinical setting a BNP result of >100 pg/mLindicates congestive heart failure. Performed By: #### 8 5123, [id number] ####[facility] [place] [address], [facility] CBC W/DIFFon 02-12-2017 Basophils Auto #/vol (Bld) 1.2 % Normal 0.0-2.0 [facility] Comment on above: Order Comment: No: D o not add to previous draw Performed By: #### 5 0103 ####[facility] [place] [address], [facility] Eosinophils/100 leukocytes 0.3 % Normal 0.0-5.0 [facility] Comment on above: Order Comment: No: D o not add to previous draw Performed By: #### 5 0103 ####[facility] [place] [address], [facility] Erythrocyte distribution width Auto Ratio (RBC) 12.9 % Normal 11.5-16.9 [facility] Comment on above: Order Comment: No: D o not add to previous draw Performed By: #### 5 0103 ####[facility] [place] [address], [facility] Erythrocytes (RBC) 3.94 mill/mm3 Low 4.30-5.90 [facility] Comment on above: Order Comment: No: D o not add to previous draw Performed By: #### 5 0103 ####[facility], [place] [address] Hematocrit (HCT) 37.7 % Low 39.0-55.0 [facility] Comment on above: Order Comment: No: D o not add to previous draw Performed By: #### 5 0103 ####[facility] Hemoglobin mass conc (Bld) 12.9 g/dL Low 13.9-16.3 [facility] Comment on above: Order Comment: No: D o not add to previous draw Performed By: #### 5 0103 ####[facility] Lymphocytes/100 leukocytes 15.3 % Low 20.0-40.0 [facility] Comment on above: Order Comment: No: D o not add to previous draw Performed By: #### 5 0103 ####[facility] MCH 32.6 pg High 24.0-32.0 [facility] Comment on above: Order Comment: No: D o not add to previous draw Performed By: #### 5 0103 ####[facility] MCHC mass conc (RBC) 34.1 g/dL Normal 32.0-36.0 [facility] Comment on above: Order Comment: No: D o not add to previous draw Performed By: #### 5 0103 ####[facility] MCV 95.7 fL Normal 80.0-100.0 [facility] Comment on above: Order Comment: No: D o not add to previous draw Performed By: #### 5 0103 ####[facility] METHOD Normal RBC Morphology Normal [facility] Comment on above: Order Comment: No: D o not add to previous draw Performed By: #### 5 0103 ####[facility] [place] [address], [facility] MONOS 12.2 % High 2-8 [facility] Comment on above: Order Comment: No: D o not add to previous draw Performed By: #### 5 0103 ####[facility] [facility] [place] [address], [facility] Neutrophils/100 leukocytes 71.0 % High 50-70 [facility] Comment on above: Order Comment: No: D o not add to previous draw Performed By: #### 5 0103 ####[facility] [place] [address], [facility] PLAT CNT 276 Thou/mm3 Normal 100-400 [facility] Comment on above: Order Comment: No: D o not add to previous draw Performed By: #### 5 0103 ####[facility] [facility] WBC (Leukocytes) 9.6 Thou/mm3 Normal 4.0-10.0 [facility] Comment on above: Order Comment: No: D o not add to previous draw Performed By: #### 5 0103 ####[facility] [place] [address], [facility] COMP METABOLIC PANELon 02-12 Alanine aminotransferase (ALT) 11 U/L Normal 7-52 [facility] Comment on above: Order Comment: No: D o not add to previous draw Performed By: #### 4 1000, 47598, 64785, 96981, 22708, 31743 ####[facility] [place] [address], [facility] Albumin 3.2 g/dL Low 3.5-5.7 [facility] Comment on above: Order Comment: No: D o not add to previous draw Performed By: #### 4 1000, 73455, 84442, 96954, 42811, 10331 ####[facility] [place] [address], [facility] ALKALINE PHOSPH 49 IU/L Normal 34-104 [facility] Comment on above: Order Comment: No: D o not add to previous draw Performed By: #### 4 1000, 85462, 20504, 74779, 31949, 02578 ####[facility] [place] [address], [facility] Aspartate aminotransferase (AST) 9 U/L Low 13-39 [facility] Comment on above: Order Comment: No: D o not add to previous draw Performed By: #### 4 1000, 93535, 02280, 94786, 87612, 59196 ####[facility] [place] [address], [facility] Bilirubin (total) 0.6 mg/dL Normal 0.3-1.0 [facility] Comment on above: Order Comment: No: D o not add to previous draw Performed By: #### 4 1000, 66439, 15044, 43895, 77575, 47292 ####[facility] [place] [address], [facility] Calcium 8.5 mg/dL Low 8.6-10.3 [facility] Comment on above: Order Comment: No: D o not add to previous draw Performed By: #### 4 1000, 28295, 56488, 18284, 15964, 17874 ####[facility] [place] [address], [place] Chloride 106 mmol/L Normal 98-107 [facility] Comment on above: Order Comment: No: D o not add to previous draw Performed By: #### 4 1000, 88491, 71634, 16396, 57437, 01417 ####[facility] [place] [address], [place] CO2 24 mmol/L Normal 21-31 [facility] Comment on above: Order Comment: No: D o not add to previous draw Performed By: #### 4 1000, 84819, 34819, 41296, 70119, 74165 ####[facility] Creatinine 0.98 mg/dL Normal 0.70-1.30 [facility] Comment on above: Order Comment: No: D o not add to previous draw Performed By: #### 4 1000, 41672, 14084, 51869, 10666, 44120 ####[facility] eGFR (black) mL/min/{1.73_m2} Normal >60 [facility] Comment on above: Order Comment: No: D o not add to previous draw Result Comment: Calc ulation may not be valid for patients over 70 years Performed By: #### 4 1000, 54113, 09360, 93606, 70100, 45887 ####[facility] eGFR (non-black) mL/min/{1.73_m2} Normal >60 [facility] Comment on above: Order Comment: No: D o not add to previous draw Result Comment: Calc ulation may not be valid for patients over 70 years Performed By: #### 4 1000, 95640, 76304, 18966, 07653, 35772 ####[facility] [place] [address], [facility] Glucose mass conc 180 mg/dL High 70-100 [facility] Comment on above: Order Comment: No: D o not add to previous draw Performed By: #### 4 1000, 10205, 07319, 04675, 11645, 02558 ####[facility] [place] [address], [facility] Potassium molar conc 4.2 mmol/L Normal 3.5-5.1 [facility] Comment on above: Order Comment: No: D o not add to previous draw Performed By: #### 4 1000, 17347, 25740, 64002, 32626, 62957 ####[facility] [place] [address], [facility] Protein 5.9 g/dL Low 6.0-8.3 [facility] Comment on above: Order Comment: No: D o not add to previous draw Performed By: #### 4 1000, 92259, 54097, 49510, 92072, 41330 ####[facility] Sodium 135 mmol/L Low 136-145 [facility] Comment on above: Order Comment: No: D o not add to previous draw Performed By: #### 4 1000, 95279, 32810, 09840, 17624, 59573 ####[facility] Urea nitrogen 20 mg/dL Normal 7-25 [facility] Comment on above: Order Comment: No: D o not add to previous draw Performed By: #### 4 1000, 30931, 53337, 68383, 15864, 81949 ####[facility] CPKon 02-12-2017 Creatine kinase (CK) 44 U/L Normal 30-223 [facility] Comment on above: Order Comment: No: D o not add to previous draw Performed By: #### 4 1000, 78149, 75105, 62087, 05149, 55433 ####[facility] Cardiovascular Lab Reporton 02-12-2017 Cardiovascular Lab Report [facility] Patient Name: Elvira Bergman [facility] MR #: [id number] Physician: Marie Iraheta,Department of M.D.Medicine Service Date: 02/11/2017Division of Birthdate: 2Cardiology Room #: 3AB [id number] CardiovascularServicesUniversi [address], [place] [address]Zrzeb Fax Cardiovascular Laboratory ReportIMPRESSION:1. Successful balloon angioplasty, reduction of 80% in-stent restenosis to 0 using a 3.5 x 12 Synergy stent.2. Occluded right common iliac artery.3. Patent stent in right coronary artery with mild in-stent restenosis.INDICATION:Elvira Bergman is a 76-year-old male, [facility]. [facility] ST-elevation concerning for ST-elevationmyocardial infarction. Because of that, he was life flighted to [facility].PROCEDURE:1. Coronary angiography from right radial access.2. 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 Access wasobtained. Initially we tried to obtain in the right common femoral artery,however, it was a very feeble pulse and this access was abandoned. At thispoint of time, we accessed the right radial artery and a 6-Bahraini sheathwas placed in. After that, the wire [...] time, this guide was taken outand a 6-Bahraini JL-4 guide was used to engage the [...] this point of time, we used a 6-Bahraini JR-5 toengage the right coronary ostium. This [...] 02/11/2017/02:36 P/Marie Iraheta M.D.Date Trans: 02/12/2017 02:21 A/Jimy_[id number]: Bridget Farley M.D. [address] [facility] [address] Saw Nath M.D. [facility] [place] [address] Normal [facility] HEMOGLOBIN A1Con 02-12-2017 Glucose mass conc 143 mg/dL High 70-126 [facility] Comment on above: Order Comment: No: D o not add to previous draw Performed By: #### 8 5499 ####[facility] [place] [address], [facility] Hemoglobin A1c/Hemoglobin.to avtar mass fraction (Bld) 6.6 % High 4.0-6.0 [facility] Comment on above: Order Comment: No: D o not add to previous draw Performed By: #### 8 5499 ####[facility] LIPID PROFILEon 02-12-2017 Cholesterol 107 mg/dL Low 120-200 [facility] Comment on above: Order Comment: No: D o not add to previous draw Result Comment: CHOL ESTEROL REFERENCE RANGE:20 YEARS AND OLDER CARDIOVASCULAR RISKLess than 200 mg/dl Low Pbra055 to 239 mg/dl Borderline Erqv248 mg/dl and greater High Risk Performed By: #### 4 1000, 97196, 76588, 91212, 10813, 47595 ####[facility] Cholesterol to HDL Ratio 3.7 {ratio} Normal .0-4.5 [facility] Comment on above: Order Comment: No: D o not add to previous draw Performed By: #### 4 1000, 29620, 76625, 04720, 26995, 85736 ####[facility] HDL Cholesterol 29 mg/dL Normal 23-92 [facility] Comment on above: Order Comment: No: D o not add to previous draw Result Comment: Slig ht variation in normal range could be due to gender and/or age.HDL CHOLESTEROL REFERENCE RANGE:20 years and older Cardiovascular Risk> or =60 mg/dL Jpyktgohd11 TO 59 mg/dL Low Risk<40 mg/dL High Risk Performed By: #### 4 1000, 63819, 63281, 45459, 76754, 74767 ####[facility] LDL Cholesterol 63 mg/dL Normal 0-130 [facility] Comment on above: Order Comment: No: D o not add to previous draw Result Comment: LDL IS A CALCULATIONLDL IS ONLY VALID IF THE TRIG IS LESS THAN 400. Performed By: #### 4 1000, 55403, 51220, 34535, 98670, 96195 ####[facility] NON-HDL CHOLESTEROL 78 mg/dL Normal [facility] Comment on above: Order Comment: No: D o not add to previous draw Performed By: #### 4 1000, 10759, 48808, 43159, 55506, 57650 ####[facility] Triglyceride 75 mg/dL Normal 40-149 [facility] Comment on above: Order Comment: No: D o not add to previous draw Result Comment: TRIG LYCERIDE REFERENCE RANGE:20 YEARS AND OLDER CARDIOVASCULAR RISKLESS THAN 150 mg/dl LOW KEST222 TO 199 mg/dl BORDERLINE CDUU656 mg/dl AND GREATER HIGH RISK Performed By: #### 4 1000, 57897, 47593, 14778, 89862, 88267 ####[facility] VLDL CHOL 15 mg/dL Normal 0-40 [facility] Comment on above: Order Comment: No: D o not add to previous draw Performed By: #### 4 1000, 62313, 11079, 43612, 23419, 62464 ####[facility] [place] [address], [facility] MAGNESIUM BLOODon 02-12-2017 Magnesium 1.7 mg/dL Low 1.9-2.7 [facility] Comment on above: Order Comment: No: D o not add to previous draw Performed By: #### 4 1000, 76154, 29834, 97317, 26452, 18653 ####[facility] [place] [address], [facility] PHOSPHORUS BLOODon 7 Phosphate 3.7 mg/dL Normal 2.5-5.0 [facility] Comment on above: Order Comment: No: D o not add to previous draw Performed By: #### 4 1000, 83195, 41727, 62493, 21765, [address] ####[place] [address], [facility] POC GLUCOSE LABon 02-12-2017 Glucose mass conc 297 mg/dL High 70-100 [facility] Comment on above: Performed By: #### 8 5499 ####[address] [address], [facility] Glucose mass conc 184 mg/dL High 70-100 [facility] Comment on above: Performed By: #### 8 5499 ####[address] PORTABLE CHEST 1 VIEWon 01-22 PORTABLE CHEST 1 VIEW [facility] [address] [place] [id number] Patient Name: ELVIRA BERGMAN : 1940ex: MAge: Race: WhiteMRN: [id number]. Location: [id number] Status: IVisit #: [id number] Date: 02/12/2017 6:55:00 AMCompleted Date: 02/12/2017 07:59 AMRequesting Provider: MARIA LUISA COATES Attending Provider: MABEL SÁNCHEZ V Report Copy To: Signs & Symptoms: Chest PainHistory: Patient history not availableComments: R/O CardiomegalyExam: PORTABLE CHEST 1 VIEWAccession #: [id number] PORTABLE CHEST 1 VIEW 02/12/2017 7:59 AM [...] findings. Electronically signed by:Shalini Garcia. Transcribed by: [email or web address], User Resident: APOLONIA BOSTONElectronically Signed by: SHALINI GARCIA @ 02/12/2017 04:06 PMI personally read this/these film(s) with this resident Normal [facility] Comment on above: Order Comment: R/O C ardiomegaly TROPONIN-Ion 02-12-2017 Troponin I.cardiac mass conc 0.06 ng/mL High 0.00-0.04 [facility] Comment on above: Result Comment: REFE RENCE RANGES: 0.00 - 0.04 ng/ml NORMAL 0.05 - 0.50 ng/ml INDETERMINATE > 0.50 ng/ml CONSISTENT WITH AN M.I. Performed By: #### 4 1000, 53008, 93965, 28240, 64513, 38650 ####[facility] [place] [address], [place] POC GLUCOSE LABon 02-11-2017 Glucose mass conc 224 mg/dL High 70-100 [facility] Comment on above: Performed By: #### 8 5499 ####[facility] [place] [address], [place] Glucose mass conc 158 mg/dL High 70-100 [facility] Comment on above: Performed By: #### 8 5499 ####[facility] Vital Signs Date Time Vital Sign Value Performing Clinician Zena cedillo 07-16-2024 09:41-0500 Body height 182.9 cm Pacc 1 Work Phone: [facility] 07-16-2024 09:41-0500 Body mass index (BMI) [Ratio] 24.52 kg/m2 Pacc 1 Work Phone: [facility] 07-16-2024 09:41-0500 Body temperature 97.59 [degF] Pacc 1 Work Phone: [facility] 07-16-2024 09:41-0500 Body weight 82 kg Pacc 1 Work Phone: [facility] 07-16-2024 09:41-0500 Diastolic blood pressure 64 mm[Hg] Pacc 1 Work Phone: [facility] 07-16-2024 09:41-0500 Heart rate 67 /min Pacc 1 Work Phone: [facility] 07-16-2024 09:41-0500 Respiratory rate 18 /min Pacc 1 Work Phone: [facility] 07-16-2024 09:41-0500 SaO2% (BldA) [Mass fraction] 98 % Pacc 1 Work Phone: [facility] 07-16-2024 09:41-0500 Systolic blood pressure 115 mm[Hg] Pacc 1 Work Phone: [facility] 03-14-2024 07:09-0400 Body height 182.9 cm Pacc 1 Work Phone: [facility] 03-14-2024 07:09-0400 Body mass index (BMI) [Ratio] 24.52 kg/m2 Pacc 1 Work Phone: [facility] 03-14-2024 07:09-0400 Body temperature 97.5 [degF] Pacc 1 Work Phone: [facility] 03-14-2024 07:09-0400 Body weight 82 kg Pacc 1 Work Phone: [facility] 03-14-2024 07:09-0400 Diastolic blood pressure 58 mm[Hg] Pacc 1 Work Phone: [facility] 03-14-2024 07:09-0400 Heart rate 64 /min Pacc 1 Work Phone: [facility] 03-14-2024 07:09-0400 Respiratory rate 16 /min Pacc 1 Work Phone: [facility] 03-14-2024 07:09-0400 SaO2% (BldA) [Mass fraction] 98 % Pacc 1 Work Phone: [facility] 03-14-2024 07:09-0400 Systolic blood pressure 93 mm[Hg] Pacc 1 Work Phone: [facility] Encounters Encounter Date Encounter Type Care Provider Facility Start: 01-23-2025 End: 01-23-2025 Patient encounter procedure Arash Post MD Work Phone: Ophthalmology Comment on above: 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) (Primary Dx) Start: 01-23-2025 End: 01-23-2025 ambulatory BRIDGET M HOY Facility:[facility] Start: 12-21-2024 End: 12-21-2024 Patient encounter procedure Arash Post MD Work Phone: Ophthalmology Comment on above: 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) Start: 12-21-2024 End: 12-21-2024 ambulatory BRIDGET M HOY Facility:[facility] Start: 10-31-2024 End: 10-31-2024 Patient encounter procedure Arash Post MD Work Phone: Ophthalmology Comment on above: 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) (Primary Dx) Start: 10-31-2024 End: 10-31-2024 ambulatory BRIDGET M HOY Facility:[facility] Start: 08-22-2024 End: 08-22-2024 ambulatory [facility] Facility:[facility] Start: 08-22-2024 End: 08-22-2024 Patient encounter procedure [...] (Primary Dx) Start: 08-14-2024 End: 08-14-2024 ambulatory BRIDGET Kingston Karl Facility:[facility] Start: 08-14-2024 End: 08-14-2024 Patient encounter procedure Ramin Sprague MD Work Phone: Ophthalmology Comment on above: Pseudophakia of both eyes (Primary Dx); Exudative age-related macular degeneration of left eye with active choroidal neovascularization (HCC); Nonexudative age-related macular degeneration, right eye, intermediate dry stage; Strabismus Start: 08-13-2024 End: 08-13-2024 ambulatory BRIDGET Kingston Karl Facility:[facility] Start: 07-25-2024 End: 07-25-2024 Patient encounter procedure Arash Post MD Work Phone: Ophthalmology Comment on above: 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) (Primary Dx) Start: 07-25-2024 End: 07-25-2024 ambulatory BRIDGET Onofre Karl Facility:[facility] Start: 07-25-2024 Encounter for other preprocedural examination BRIDGET FARLEY [facility] Start: 07-18-2024 End: 07-18-2024 Telephone encounter Pacc Christine 2 Work Phone: Pre Anesthesia Comment on above: Results Start: 07-16-2024 End: 07-16-2024 Patient encounter procedure Eye Measurements Work Phone: Ophthalmology Comment on above: 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 Start: 07-16-2024 End: 07-16-2024 Admission to establishment [place] [id number] Work Phone: Pre Anesthesia Start: 07-16-2024 End: 07-16-2024 ambulatory [facility] Facility:[facility] Start: 07-16-2024 End: 07-16-2024 Anesthesia consultation [place] [id number] Work Phone: Pre Anesthesia Comment on above: Pre-op examination ( Primary Dx); Abnormal finding of blood chemistry, unspecified; Benign prostatic hyperplasia without urinary obstruction; Type 2 diabetes mellitus without complication, unspecified whether long term 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 (HCC); Persistent atrial fibrillation (HCC); Atherosclerosis of coronary artery without angina pectoris, unspecified vessel or lesion type, unspecified whether lower [place] or transplanted heart; Essential hypertension; Pure hypercholesterolemia; Chronic systolic heart failure (HCC) Start: 07-16-2024 End: 07-16-2024 Preprocedural examination done [place] [address] Work Phone: [facility] Work Phone: Start: 06-28-2024 End: 06-28-2024 [facility] Facility:[facility] Start: 06-28-2024 End: 06-28-2024 Patient encounter procedure [...] upper eyelids; Strabismus Start: 06-20-2024 End: 06-20-2024 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) Start: 05-03-2024 End: 05-04-2024 Telephone encounter Ramin Sprague MD Work Phone: Ophthalmology Comment on above: Medication Problem Refill Request Start: 04-25-2024 End: 04-25-2024 ambulatory BRIDGET FARLEY Facility:[facility] Start: 04-25-2024 End: 04-25-2024 Patient encounter procedure Arash Post MD Work Phone: Ophthalmology Comment on above: 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) Start: 04-12-2024 End: 04-12-2024 ambulatory BRIDGET FARLEY Facility:[facility] Start: 04-12-2024 End: 04-12-2024 Patient encounter procedure Ramin Sprague MD Work Phone: Ophthalmology Comment on above: Pseudophakia, right eye (Primary Dx); Combined form of age-related cataract, left eye Start: 04-11-2024 End: 04-11-2024 ambulatory RAMIN SPRAGUE Facility:[facility] Start: 03-14-2024 End: 03-14-2024 Patient encounter procedure Arash Post MD Work Phone: Ophthalmology Comment on above: 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) (Primary Dx) Nuclear senile catar act of right eye Start: 03-14-2024 End: 03-14-2024 Admission to establishment Pacc [place] 1 Work Phone: Pre Anesthesia Start: 03-14-2024 End: 03-14-2024 ambulatory ARASH POST Facility:[facility] Start: 03-14-2024 End: 03-14-2024 Anesthesia consultation Pacc [place] 1 Work Phone: Pre Anesthesia Comment on above: Pre-op evaluation (P rimary Dx); Benign prostatic hyperplasia without urinary obstruction; Type 2 diabetes mellitus without complication, unspecified whether long term 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 (HCC); Pure hypercholesterolemia; Essential hypertension; Persistent atrial fibrillation (HCC); Atherosclerosis of coronary artery without angina pectoris, unspecified vessel or lesion type, unspecified whether [place] or transplanted heart Start: 03-14-2024 Encounter for other preprocedural examination BRIDGET HOY [facility] Start: 03-14-2024 End: 03-14-2024 Preprocedural examination done [facility] [place] 1 Work Phone: [facility] Work Phone: Start: 03-02-2024 End: 03-04-2024 [facility] Start: 02-23-2024 End: 02-23-2024 ambulatory RAMIN SPRAGUE Facility:[facility] Start: 02-23-2024 End: 02-23-2024 Patient encounter procedure [...] upper eyelids Start: 02-15-2024 End: 02-15-2024 ambulatory NEY CISSE Facility:[facility] Start: 02-15-2024 End: 02-15-2024 Patient encounter procedure Arash Post MD Work Phone: Ophthalmology Comment on above: 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) (Primary Dx) Start: 01-30-2024 End: 02-01-2024 Subsequent hospital visit by physician pradip [facility] Comment on above: Traumatic closed fra cture of C2 vertebra with minimal displacement, initial encounter ([facility]) Start: 10-19-2023 End: 10-21-2023 ambulatory LISSETH KENNEY [facility] Start: 09-06-2023 End: 09-08-2023 ambulatory ELLIOT GARRIDO [facility] Start: 09-05-2023 End: 09-07-2023 ambulatory RELL ARRIAGA [facility] Start: 07-19-2023 End: 07-29-2023 Evaluation and management of inpatient PRERNA FISHER [facility] Start: 07-12-2023 End: 07-19-2023 Evaluation and management of inpatient ALISON MAE [facility] Start: 07-11-2023 End: 07-12-2023 Emergency department patient visit Jasiel Franks Facility:[facility] Start: 09-20-2022 End: 10-20-2022 ambulatory MORALEZ H FAWWAD Facility:[facility] Start: 09-08-2022 End: 09-09-[address] [...] FAWWAD Facility:[facility] Start: 03-12-2022 End: 03-12-2022 ambulatory [facility] Start: 02-22-2022 End: 03-22-2022 ambulatory MORALEZ H FAWWAD Facility:[facility] Start: 02-19-2022 ambulatory [facility] Start: 02-18-2022 End: 02-18-2022 Evaluation and management of inpatient MORALEZ H FAWWAD Facility:[facility] Start: 02-02-2022 End: 02-20-2022 ambulatory SHAIKH Kirt MALDONADO Facility:[facility] Start: 2021 End: 12-24-[address] BRIDGET FARLEY . Facility:[facility] Start: 11-17-2021 End: 11-17-[address] BRIDGET FARLEY . Facility:[facility] Start: 05-01-2019 End: 05-02-2019 ambulatory Christie DONALD Facility:CD:[id number] 1 5 Start: 02-11-2017 End: 02-12-2017 Evaluation and management of inpatient PROVIDER UNKNOWN Facility:[facility] Procedures Date Procedure Procedure Detail Performing Clinician Start: 01-23-2025 Computerized ophthal rebecca imaging retina Arash Post MD Work Phone: Start: 01-23-2025 Intravitreal njx pharmacologic agt spx Arash Post MD Work Phone: Start: 12-21-2024 Computerized ophthal rebecca imaging retina [...] BIOMETRY W/ IOL CALC OS (LEFT EYE) Rmain Sprague MD Work Phone: Start: 07-16-2024 ASCAN [...] DTaP/Tdap/Td vaccine (2 - Td or Tdap) [facility] Start: 07-11-2033 Urine microalbumin profile DTaP,Tdap,Td Vaccine (2 - Td or Tdap) [facility] Start: 07-26-2026 Diabetes Screening Diabetes Screening [facility] Start: 02-07-2026 End: 07-17-2026 OCT MACULA CIRRUS OU (BOTH EYES) OCT MACULA CIRRUS OU (BOTH EYES) OPHT Imaging Routine Exudative age-related macular degeneration of left eye with active choroidal neovascularization (HCC) Expected: 02/07/2026, Expires: 07/17/2026 [facility] Work Phone: Comment on above: Expected: 02/07/2026, Expires: Start: 01-23-2026 Glaucoma screening Dilated Retinal Exam [facility] Start: 12-21-2025 Glaucoma screening Dilated Retinal Exam [facility] Start: 11-15-2025 End: 04-24-2026 OCT MACULA CIRRUS OU (BOTH EYES) OCT MACULA CIRRUS OU (BOTH EYES) OPHT Imaging Routine Exudative age-related macular degeneration of left eye with active choroidal neovascularization (HCC) Expected: 11/15/2025, Expires: 04/24/2026 [facility] Work Phone: Comment on above: Expected: 11/15/2025, Expires: Start: 09-06-2025 End: 02-13-2026 OCT MACULA CIRRUS OU (BOTH EYES) OCT MACULA CIRRUS OU (BOTH EYES) OPHT Imaging Routine Exudative age-related macular degeneration of left eye with active choroidal neovascularization (HCC) Expected: 09/06/2025, Expires: 02/13/2026 [facility] Work Phone: Comment on above: Expected: 09/06/2025, Expires: Start: 07-25-2025 Glaucoma screening Dilated Retinal Exam [facility] Start: 07-05-2025 End: 12-12-2025 OCT MACULA CIRRUS OU (BOTH EYES) OCT MACULA CIRRUS OU (BOTH EYES) OPHT Imaging Routine Exudative age-related macular degeneration of left eye with active choroidal neovascularization (HCC) Expected: 07/05/2025, Expires: 12/12/2025 [facility] Work Phone: Comment on above: Expected: 07/05/2025, Expires: Start: 06-28-2025 End: 12-20-2025 ASCAN ONLY - DIAGNOSTIC OS (LEFT EYE) ASCAN ONLY - DIAGNOSTIC OS (LEFT EYE) OPHT Imaging Routine Nuclear senile cataract of left eye Expected: 06/28/2025, Expires: 12/20/2025 [facility] Comment on above: Expected: 06/28/2025, Expires: Start: 06-28-2025 Glaucoma screening Dilated Retinal Exam [facility] Start: 06-28-2025 End: 12-20-2025 IOL BIOMETRY W/ IOL CALC OS (LEFT EYE) IOL BIOMETRY W/ IOL CALC OS (LEFT EYE) OPHT Imaging Routine Nuclear senile cataract of left eye Expected: 06/28/2025, Expires: 12/20/2025 [facility] Comment on above: Expected: 06/28/2025, Expires: Start: 05-10-2025 End: 10-17-2025 OCT MACULA CIRRUS OU (BOTH EYES) OCT MACULA CIRRUS OU (BOTH EYES) OPHT Imaging Routine Exudative age-related macular degeneration of left eye with active choroidal neovascularization (HCC) Expected: 05/10/2025, Expires: 10/17/2025 [facility] Work Phone: Comment on above: Expected: 05/10/2025, Expires: Start: 05-01-2025 End: 05-01-2025 Patient encounter procedure 05/01/2025 1:45 PM EST Office Visit OPHT Ophthalmology [address] [place] [address] Arash Post MD [address] [place] [address] Diagnostics, [facility] [address] [address] *14 W, DTI EYLEA OS Ophthalmology Comment on above: *14 W, DTI EYLEA OS Start: 03-29-2025 End: 09-05-2025 OCT MACULA CIRRUS OU (BOTH EYES) OCT MACULA CIRRUS OU (BOTH EYES) OPHT Imaging Routine Exudative age-related macular degeneration of left eye with active choroidal neovascularization (HCC) Expected: 03/29/2025, Expires: 09/05/2025 [facility] Work Phone: Comment on above: Expected: 03/29/2025, Expires: Start: 03-01-2025 End: 08-08-2025 OCT MACULA CIRRUS OU (BOTH EYES) OCT MACULA CIRRUS OU (BOTH EYES) OPHT Imaging Routine Exudative age-related macular degeneration of left eye with active choroidal neovascularization (HCC) Expected: 03/01/2025, Expires: 08/08/2025 [facility] Work Phone: Comment on above: Expected: 03/01/2025, Expires: Start: 02-22-2025 End: 08-16-2025 ASCAN ONLY - DIAGNOSTIC OD (RIGHT EYE) ASCAN ONLY - DIAGNOSTIC OD (RIGHT EYE) OPHT Imaging Routine Nuclear senile cataract of right eye Expected: 02/22/2025, Expires: 08/16/2025 [facility] Comment on above: Expected: 02/22/2025, Expires: Start: 02-22-2025 Glaucoma screening Dilated Retinal Exam [facility] Start: 02-22-2025 End: 08-16-2025 IOL BIOMETRY W/ IOL CALC OD (RIGHT EYE) IOL BIOMETRY W/ IOL CALC OD (RIGHT EYE) OPHT Imaging Routine Nuclear senile cataract of right eye Expected: 02/22/2025, Expires: 08/16/2025 [facility] Comment on above: Expected: 02/22/2025, Expires: Start: 01-23-2025 End: 01-23-2025 Patient encounter procedure Ophthalmolog y Comment on above: Return in about 12 weeks (around ). *12 W, DFE/OCT, EYLE A OS Start: 01-21-2025 Influenza vaccination [facility] Start: 01-13-2025 [facility] Start: 10-31-2024 End: 10-31-2024 Patient encounter procedure 10/31/2024 2:00 PM EDT Office Visit OPHT Ophthalmology [address] [place] [address] Arash Post MD [address] [place] [address] *10 W DTI EYLEA OS Ophthalmology Comment on above: *10 W DTI EYLEA OS Start: 08-22-2024 End: 08-22-2024 Patient encounter procedure Ophthalmolog y Comment on above: *10 W DTI EYLEA OS 1 WEEK- CATARACT HAO CARLOS ALBERTO LEFT EYE ONLY - MELVIN Start: 08-14-2024 End: 08-14-2024 Patient encounter procedure 08/14/2024 10:15 AM EDT Office Visit OPHT Ophthalmology [address] [place] [address] Ramin Sprague MD [address] [place] [address] 1 DAY- CATARACT SURGERY LEFT EYE ONLY - MELVIN Ophthalmology Comment on above: 1 DAY- CATARACT SURGERY LEFT EYE ONLY - MELVIN Start: 08-13-2024 End: 08-13-2024 Admission to same day surgery center 08/13/2024 9:45 AM EDT - 08/13/2024 10:20 AM EDT Surgery Ambulatory Surgery [address] [place] [address] Ramin Sprague MD [address] [facility] [place] [place] [address] PHACOEMULSIFICATION CATARACT IMPLANT INTRAOCULAR LENS W/O ENDOSCOPIC [...] AM EDT Hospital Encounter Ambulatory Surgery [address] [facility] [place] [address] Ramin Sprague MD [address] [facility] [place] [address] Nuclear senile cataract of left eye [H25.12] Ambulatory Surgery Comment on above: Nuclear senile cataract of left eye [H25 .12] Start: 08-13-2024 End: 08-13-2024 Xcapsl ctrc rmvl insj io lens prosth w/o ecp PHACOEMULSIFICATION CATARACT IMPLANT INTRAOCULAR LENS W/O ENDOSCOPIC CYCLOPHOTOCOAGULATION Nuclear senile cataract of left eye 08/13/2024 9:45 AM EDT [facility] Start: 07-16-2024 End: 10-15-2024 Basic metabolic 2000 panel - Serum or Plasma [facility] Comment on above: Expected: 07/16/2024, Expires: Start: 07-16-2024 End: 10-15-2024 Hemoglobin A1c in Blood [facility] Work Phone: Comment on above: Expected: 07/16/2024, Expires: Start: 07-16-2024 End: 07-16-2024 Patient encounter procedure 07/16/2024 11:00 AM EST Office Visit OPHT Ophthalmology [address] [facility] [place] [address] CATARACT SURGERY LEFT EYE ONLY - MELVIN Ophthalmology Comment on above: CATARACT SURGERY LEFT EYE ONLY - MELVIN Start: 07-16-2024 End: 07-16-2024 Admission to same day surgery center 07/16/2024 10:20 AM EST PAT Pre Anesthesia [address] [facility] [place] [address] 1, Pacc [place] [address] [facility] [place] [address] CATARACT SURGERY LEFT EYE ONLY - MELVIN Pre Anesthesia Comment on above: CATARACT SURGERY LEFT EYE ONLY - MELVIN Start: 06-28-2024 End: 06-28-2024 Patient encounter procedure Ophthalmolog y Comment on above: OS only CAT Eval CAT EVAL OS Start: 06-20-2024 End: 06-20-2024 Patient encounter procedure 06/20/2024 9:45 AM EST Office Visit OPHT [facility]hthal[facility] [address] [facility] [place] [address] Arash Post MD [address] [place] [address] *8 W DTI EYLEA OS Ophthalmology Comment on above: *8 W DTI EYLEA OS Start: 05-23-2024 Advance Directive Discussion Advance Directive Discussion [facility] Start: 04-25-2024 End: 04-25-2024 Patient encounter procedure Ophthalmolog y Comment on above: Return in about 6 weeks (around ).DTI Eylea left eye *6 W, DTI EYLEA OS Start: 04-11-2024 End: 04-11-2024 Admission to same day surgery center 04/11/2024 12:20 PM EST - 04/11/2024 12:55 PM EST Surgery Ambulatory Surgery [address] [place] [address] Ramin Sprague MD [address] [facility] [place] [address] PHACOEMULSIFICATION CATARACT IMPLANT INTRAOCULAR LENS W/O ENDOSCOPIC [...] PM EST Hospital Encounter Ambulatory Surgery [address] [facility] [place] [address] Ramin Sprague MD [address] [facility] [place] [address] Nuclear senile cataract of right eye [H25.11] Ambulatory Surgery Comment on above: Nuclear senile cataract of right eye [H2 5.11] Start: 04-11-2024 End: 04-11-2024 Xcapsl ctrc rmvl insj io lens prosth w/o ecp PHACOEMULSIFICATION CATARACT IMPLANT INTRAOCULAR LENS W/O ENDOSCOPIC CYCLOPHOTOCOAGULATION Nuclear senile cataract of right eye 04/11/2024 12:20 PM EST [facility] [place] Start: 03-14-2024 End: 03-14-2024 Patient encounter procedure Ophthalmolog y Comment on above: Return in about 1 month (around 03/16/20). CATARACT SURGERY RIG HT EYE MELVIN *1 month (around ). EYLEA OS Start: 03-14-2024 End: 03-14-2024 Admission to same day surgery center 03/14/2024 7:00 AM EDT PAT Pre Anesthesia [address] [place] [address] 1, Pacc [place] [address] [place] [address] CATARACT SURGERY RIGHT EYE MELVIN Pre Anesthesia Comment on above: CATARACT SURGERY RIGHT EYE MELVIN Start: 02-23-2024 End: 02-23-2024 Patient encounter procedure 02/23/2024 11:15 AM EDT Office Visit OPHT Ophthalmology [address] [facility] [place] [address] Ramin Sprague MD [address] [place] [address] Cataract Consult *Referral scanned into [facility].* Ophthalmology Comment on above: Cataract Consult *Referral scanned into [facility].* Start: 01-22-2024 COVID-19 Vaccine ( season) COVID-19 Vaccine ( season) [facility] Start: 01-22-2024 Covid-19 Vaccine ( season) Covid-19 Vaccine ( season) [facility] Start: 01-22-2024 Influenza vaccination Influenza Vaccine (#1) [facility] Start: 01-11-2024 Hemoglobin A1c measurement HbA1C [facility] Start: 12-22-2023 Influenza vaccination Flu [facility] (#1) [facility] Start: 10-19-2023 Annual Wellness Visit (Medicare) Annual Wellness Visit (Medicare) [facility] Start: 05-23-2023 Advance Directive Discussion Advance Directive Discussion [facility] Start: 2016 RSV Vaccine (1 - 1-dose 75+ series) RSV Vaccine (1 - 1-dose 75+ series) [facility] Start: 2006 Pneumococcal Vaccine: 65+ (1 of 1 - PCV) Pneumococcal Vaccine: 65+ (1 of 1 - PCV) [facility] Start: 12-21-2006 Medicare Annual Wellness Visit Medicare Annual Wellness Visit [facility] Start: 2001 Respiratory Syncytial Virus (RSV) or age 60 yrs+ (1 - 1-dose 60+ series) Respiratory Syncytial Virus (RSV) or age 60 yrs+ (1 - 1-dose 60+ series) [facility] Start: 12-24-1991 Shingles vaccine (1 of 2) Shingles vaccine (1 of 2) [facility] Start: 12-24-1991 Shingrix Vaccine (1 of 2) Shingrix Vaccine (1 of 2) [facility] Start: 1960 Pneumococcal Vaccine: 50+ (1 of 2 - PCV) Pneumococcal Vaccine: 50+ (1 of 2 - PCV) [facility] Start: 12-24-1959 Anxiety Screening Anxiety Screening [facility] Start: 12-24-1959 Depression Screening Depression Screening [facility] Start: 12-24-1959 Hepatitis B surface antibody level LDL Cholesterol [facility] Start: 1953 Depression Screen Depression Screen [facility] Start: 12-24-1951 Diabetic foot examination Diabetic Foot Exam [facility] Start: 12-24-1951 Hepatitis B screening Urine Albumin:Creatinine Ratio [facility] Start: 12-24-1951 Lipid panel Lipids [facility] Start: 12-24-1947 Pneumococcal 65+ years Vaccine (1 of 2 - PCV) Pneumococcal 65+ years Vaccine (1 of 2 - PCV) [facility] Start: 12-24-1947 Pneumococcal Vaccine: 65+ (1 of 2 - PCV) Pneumococcal Vaccine: 65+ (1 of 2 - PCV) [facility] End: 08-13-2025 CORNEAL TOPOGRAPHY ATLAS OU (BOTH EYES) CORNEAL TOPOGRAPHY ATLAS OU (BOTH EYES) OPHT Imaging Routine Nuclear senile cataract of left eye Nuclear senile cataract of right eye 1 Occurrences starting 02/20/2024 until 08/13/2025 [facility] Comment on above: 1 Occurrences starting 02/20/2024 until 08/13/2025 CORNEAL TOPOGRAPHY A TLAS OU (BOTH EYES) CORNEAL TOPOGRAPHY ATLAS OU (BOTH EYES) OPHT Imaging Routine Nuclear senile cataract of left eye Nuclear senile cataract of right eye 02/23/2024 11:04 AM EDT [facility] End: 11-28-2025 CORNEAL TOPOGRAPHY PENTACAM OS (LEFT EYE) CORNEAL TOPOGRAPHY PENTACAM OS (LEFT EYE) OPHT Imaging Routine Nuclear senile cataract of left eye 1 Occurrences starting 06/06/2024 until 11/28/2025 [facility] Work Phone: Comment on above: 1 Occurrences starting 06/06/2024 until 11/28/2025 End: 08-13-2025 OCT MACULA CIRRUS OU (BOTH EYES) OCT MACULA CIRRUS OU (BOTH EYES) OPHT Imaging Routine Nuclear senile cataract of left eye Nuclear senile cataract of right eye 1 Occurrences starting 02/20/2024 until 08/13/2025 [facility] Work Phone: Comment on above: 1 Occurrences starting 02/20/2024 until 08/13/2025 OCT MACULA CIRRUS OU (BOTH EYES) OCT MACULA CIRRUS OU (BOTH EYES) OPHT Imaging Routine Nuclear senile cataract of left eye Nuclear senile cataract of right eye 02/23/2024 11:20 AM EDT [facility] Immunizations Immunization Date Immunization Notes Care Provider Fa [facility] 03-06-2021 influenza virus vacc ine, unspecified formulation Arash Post MD Work Phone: [facility] Payers Date Payer Category Payer Unknown [id number] 2023 Self-pay 2023 Unknown [id number] 2021 Private Health Insurance MMO MED ICARE SUPPLEMENT [id number] 2021 Unknown MMO MMO MEDICARE SUPPLEMENT [id number] 2021-Present [phone] [address] [place] [address] Indemnity [id number] 2019 Medicare [id number] 2006 Medicare [id number] 1959 Medicare [id number] 1959 Medicare [id number] 1959 Unknown [id number] 1941 Unknown [id number] 2.840.1.734938.3.579.2. 727 1941 Unknown [id number] 2.840.1.795040.3.579.2. 593 1941 Unknown [id number] 2.840.1.092635.3.579.2. 593 1941 Unknown [id number] 2.16840.1.532288.3.579.2. 593 1941 Unknown [id number] 2.16840.1.726130.3.579.2. 593 1941 Unknown [id number] 2.16.840.1.991430.3.579.2. 593 1941 Unknown [id number] 2.16840.1.305052.3.579.2. 593 1941 Unknown [id number] 2.16.840.1.281891.3.579.2. 593 1941 Unknown [id number] 2.16.840.1.406159.3.579.2. 593 1941 Unknown [id number] 2.16.840.1.151037.3.579.2. 593 1941 Unknown [id number] 2.16.840.1.341969.3.579.2. 593 1941 Unknown [id number] 2.16.840.1.945840.3.579.2. 593 1941 Unknown [id number] 2.16.840.1.785730.3.579.2. 593 1941 Unknown [id number] 2.16.840.1.652130.3.579.2. 593 1941 Unknown [id number] 2.16.840.1.549359.3.579.2. 593 1941 Unknown [id number] 2.16.840.1.873978.3.579.2. 593 1941 Unknown [id number] 2.16.840.1.078007.3.579.2. 593 1941 Unknown [id number] 2.16.840.1.838682.3.579.2. 593 1941 Unknown [id number] 2.16.840.1.236736.3.579.2. 176 1941 Unknown [id number] 2.16.840.1.687631.3.579.2. 173 1941 Unknown [id number] 2.16.840.1.868513.3.579.2. 173 1941 Unknown [id number] 2.16.840.1.097704.3.579.2. 173 1941 Unknown [id number] 2.16.840.1.267652.3.579.2. 175 1941 Unknown [id number] 2.16.840.1.902610.3.579.2. 175 1941 Unknown [id number] 2.16.840.1.315628.3.579.2. 175 Unknown X Medicare [id number] Unknown [id number] 2.16.840.1.945445.3.579.2. 531 Social History Date Type Detail Facility Start: 02-15-2024 End: 07-16-2024 Tobacco smoking status NHIS Ex-smoker [facility] Work Phone: Start: 05-23-2013 End: 02-15-1984 History of tobacco use Current smoker [facility] Start: 05-23-2013 End: 02-15-1984 History of tobacco use Cigarette Smoker [facility] Start: 02-15-2024 End: 07-16-2024 Tobacco use and exposure Smokeless tobacco non-user [facility] Start: 1941 Sex assigned at Not on file B ON [employer] Start: 02-15-2024 End: 04-11-2024 Gender identity Not on file [facility] Start: 02-15-2024 End: 04-11-2024 History of Social function [facility] Start: 01-04-2024 National Score (1-10 0), lower number is lower risk 78 [facility] Start: 03-14-2024 End: 01-23-2025 Alcoholic beverage intake Ex-drinker (finding) [facility] Has the [employer], or water Granular threatened to shut off services in your home in past 12Mo No [facility] How often to you hav e a drink containing alcohol? Never BON [employer] (I/We) worried whejoanna er (my/our) food would run out before (I/we) got money to buy more. Never true [facility] Medical Equipment Procedure Code Equipment Code Equipment Origin al Text Equipment Identifier Dates [id number]. Lanette on [facility] - [id number] Start: 04-11-2024 Cc60yandy Gama on [facility] - [id number] Start: 08-13-2024 Clinical Notes 02-19-2022 to 01-23-2025 Arash Post MD - 01/23/2025 1:30 PM EDTPatient InstructionsSaArash rilye MD - 12/21/2024 11:02 AM Arash Manzanares MD - 10/31/2024 2:00 PM EDTPatient InstructionsPatient Instructions Note Date & Type Note Facility 01-23-2025 Note Date of Procedure 01/23/2025. Boiler Out Information Electrical Engineering Technologist: HAYDEN. OCT Macula Interpretation Right Eye Findings include Drusen; Negative for Intraretinal fluid, Cystoid macular edema, Subretinal fluid. Left Eye Findings include Drusen, Drusenoid PED; Negative for Intraretinal fluid, Cystoid macular edema, Subretinal fluid. Interval Change Right Eye Stable. Left Eye Stable. 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 Patient instructed to call CHRISTINE if new distortion or blind spot arises Pseudophakia, right eye - Intraocular lens well-centered - Plan: observe Pseudophakia, both eyes - Intraocular lens well-centered - Plan: observe Last dilated fundus exam 01/2025 Follow Up: 14 weeks for DTI Eylea left eye I [...] its relevant components. documented in this encounter [facility] 01-23-2025 Note HNO ID: [id number] Author: ARASH POST MD Service: ? 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 Patient instructed to call CHRISTINE if new distortion or blind spot arises Pseudophakia, right eye - Intraocular lens well-centered - Plan: observe Pseudophakia, both eyes - Intraocular lens well-centered - Plan: observe Last dilated fundus exam 01/2025 Follow Up: 14 weeks for DTI Eylea left eye I [...] agree with all of its relevant components. [facility] 01-23-2025 Note Date of Procedure 01/23/2025 [place] Protocol Safety Checklist A moment of CARE [...] Procedure Medications None. Home Going Prescription None. [facility] 01-23-2025 Instructions Arash Post MD - 01/23/2025 1:21 PM EDT Post Injection Patient Information You [...] than dabbing lightly with a tissue An cixg-nno-gjzgwij pain reliever (i.e. Tylenol) can be used [...] If it is after hours please call [phone] which will give instructions on how to reach the eye doctor network control technician documented in this encounter [facility] 12-21-2024 Note HNO ID: [id number] Author: ARASH POST MD Service: ? Author [...] with all of its relevant components. / [facility] 12-21-2024 History of Present illness Narrative Neovascular [...] relevant components. / documented in this encounter [facility] 12-21-2024 Note Date of Procedure 12/21/2024. Boiler Out Information Electrical Engineering Technologist: paco. Start time: 10:45 AM. Stop time: 10:49 [...] [facility] 10-31-2024 Note Date of Procedure 10/31/2024 [place] Protocol Safety Checklist A moment of CARE [...] Procedure Medications None. Home Going Prescription None. [facility] 10-31-2024 History of Present illness Narrative Neovascular [...] relevant components. / documented in this encounter [facility] 10-31-2024 Note HNO ID: [id number] Author: ARASH POST MD Service: ? Author [...] with all of its relevant components. / [facility] 10-31-2024 Instructions Arash Post MD - 10/31/2024 [...] than dabbing lightly with a tissue An jnmd-xjy-bmscvzx pain reliever (i.e. Tylenol) can be used [...] If it is after hours please call [phone] which will give instructions on how to reach the eye doctor network control technician documented in this encounter [facility] 08-22-2024 Note Date of Procedure 08/22/2024. Boiler Out Information Electrical Engineering Technologist: SJ. Jacinto CONLEY. +movement. OCT Macula Interpretation Right Eye Findings include Drusen, Drusenoid PED; Negative for Intraretinal fluid, Cystoid macular edema, Subretinal fluid. Left Eye Findings include Drusen, Drusenoid PED, Atrophy; Negative for Intraretinal fluid, Cystoid macular edema, Subretinal fluid. Interval Change Right Eye Stable. Left Eye Stable. [facility] 08-22-2024 Note Date of Procedure 08/22/2024 [place] Protocol Safety Checklist Sign In: Special equipment [...] Post-procedure follow up management communicated. No specimens. [facility] 08-22-2024 Note HNO ID: [id number] Author: ELISA CHI OD Service: ? Author Type: NET WASHER Type: Progress Notes Filed: 08/22/2024 13:22 Note [...] Chi, OD August 22, 2024 1:20 PM [facility] 08-22-2024 History of Present illness Narrative ASSESSMENT/PLAN: [...] 2024 1:20 PM documented in this encounter [facility] 08-22-2024 Note HNO ID: [id number] Author: ARASH POST MD Service: ? Author [...] agree with all of its relevant components. [facility] 08-22-2024 History of Present illness Narrative Neovascular [...] its relevant components. documented in this encounter [facility] 08-22-2024 Instructions Arash Post MD - 08/22/2024 [...] than dabbing lightly with a tissue An ljsj-tta-bupxzug pain reliever (i.e. Tylenol) can be used [...] If it is after hours please call [phone] which will give instructions on how to reach the eye doctor network control technician documented in this encounter [facility] 08-14-2024 Note HNO ID: [id number] Author: RAMIN SPRAGUE MD Service: ? Author Type: NET WASHER Type: Progress Notes Filed: 08/14/2024 18:40 Note [...] Chi, OD August 14, 2024 11:40 AM [facility] 08-14-2024 History of Present illness Narrative ASSESSMENT/PLAN: [...] its relevant components. Elisa Chi, CHRISTELLE August 14, 2024 11:40 AM documented in this encounter [facility] 07-25-2024 Note Date of Procedure 07/25/2024. OCT Macula Interpretation Right Eye Findings include Drusen, IS/OS junction, RPE Irregularity; Negative for Intraretinal fluid, Subretinal fluid. Left Eye Findings include Subretinal fluid, PED, Drusen, IS/OS junction, RPE Irregularity, Atrophy. Interval Change Right Eye Stable. Left Eye Stable. [facility] 07-25-2024 Note HNO ID: [id number] Author: ARASH POST MD Service: ? Author [...] agree with all of its relevant components. [facility] 07-25-2024 History of Present illness Narrative [...] its relevant components. documented in this encounter [facility] 07-18-2024 Telephone encounter Note Per Christie Cassidy CNP, patient's potassium is elevated. I called and spoke with patient's nephew, Reid. He is aware patient needs to hold potassium supplement, increase hydration and avoid high potassium foods. Reid is aware patient needs to go to any [facility] lab next week for repeat lab. Corinna Murry LPN July 18, 2024 8:23 AM [facility] 07-18-2024 Miscellaneous Notes Per Christie Cassidy CNP, patient's potassium is elevated. I called and spoke with patient's nephew, Reid. He is aware patient needs to hold potassium supplement, increase hydration and avoid high potassium foods. Reid is aware patient needs to go to any [facility] lab next week for repeat lab. Corinna Murry LPN July 18, 2024 8:23 AM documented in this encounter [facility] 07-16-2024 Note HNO ID: [id number] Author: CHRISTAL ANDERSON COA Service: ? Author Type: Boiler Out Type: Progress Notes Filed: 07/16/2024 11:17 Note Text: CONFIRM AIM NEAR LEFT EYE AIM -2.00 TORIC IOL DECLINED SECONDARY TO NEEDING PRISM GLASSES. PRAKASH Shafer [facility] 07-16-2024 Note Date of Procedure 07/16/2024. Boiler Out Information PRAKASH Shafer . Notes Measurements only - see Procedure Record under Scanned Documents for signed results. [facility] 07-16-2024 Note Date of Procedure 07/16/2024. Boiler Out Information PRAKASH Shafer . Notes Ascan report in paper chart and scanned to patient chart after post op period. A-SCAN RIGHT EYE: done A-SCAN LEFT EYE: 25.69 [facility] 07-16-2024 History of Present illness Narrative CONFIRM AIM NEAR LEFT EYE AIM -2.00 TORIC IOL DECLINED SECONDARY TO NEEDING PRISM GLASSES. PRAKASH Shafer documented in this encounter [facility] 07-16-2024 History and physical note HISTORY AND [...] have a large neck STOP-Bang Score: 3 [id number] Score: Age: >=75 Sex: male CHF history: Yes Hypertension history: Yes Stroke/TIA/thromboembolism history: No Vascular disease history: Yes Diabetes history: Yes [id number] Score: 6 ARISCAT Score: Age: >80 Preoperative [...] surgery. Previously had right cataract done at [facility] on 04/11/24. CONSULTS: Patient does not require [...] fevers. Neuro: No history of TIA's, stroke, RADIO TOWER TECHNICIAN tumor, impaired sensorium, hemiplegia, paraplegia or quadraplegia. [...] Elvira Bergman DATE: 07/16/2024 TIME: 10:25 AM [facility] 07-16-2024 History and physical note HISTORY AND PHYSICAL EXAMINATION SERVICE DATE: 07/16/2024 SERVICE TIME: 10:24 AM PRIMARY CARE PHYSICIAN: Bridget Farley MD REASON FOR VISIT: Elvira Bregman is a 83 year old male who [...] have a large neck STOP-Bang Score: 3 [id number] Score: Age: >=75 Sex: male CHF history: Yes Hypertension history: Yes Stroke/TIA/thromboembolism history: No Vascular disease history: Yes Diabetes history: Yes [id number] Score: 6 ARISCAT Score: Age: >80 Preoperative [...] surgery. Previously had right cataract done at [facility] on 04/11/24. CONSULTS: Patient does not require [...] fevers. Neuro: No history of TIA's, stroke, RADIO TOWER TECHNICIAN tumor, impaired sensorium, hemiplegia, paraplegia or quadraplegia. [...] TIME: 10:25 AM documented in this encounter [facility] 07-16-2024 Instructions Christie Cassidy APRN.CNP - 07/16/2024 10:08 AM EST PATIENT PREOPERATIVE INSTRUCTIONS Ramin Sprague has scheduled you for your procedure at this surgery center: [facility]: [phone] --[address] [facility] [place] [address]. Please read below carefully for your personalized [...] office. If you are currently using a uswk-rqn-ydri injectable or oral medication for diabetes or [...] Procedures: - YOU MUST HAVE A RESPONSIBLE BOAT REPAIRER TAKE YOU HOME. A VARNISH FINISHER OR [employer] SCHO[employer] PRINCIPAL CANNOT BE MADE A RESPONSIBLE BOAT REPAIRER. - We recommend that a responsible person [...] Advance Directive, please fax a copy to [phone] or email to for it to be [...] chart that day. documented in this encounter [facility] 06-28-2024 Note HNO ID: [id number] Author: RAMIN SPRAGUE MD Service: ? Author [...] will still need to wear prism glasses time study observer after having cataract surgery. - Contact lens [...] surgery left eye. 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 [facility] 06-28-2024 History of Present illness Narrative [...] will still need to wear prism glasses time study observer after having cataract surgery. - Contact lens [...] surgery left eye. 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 Cisse; offered cataract Surgery OS, schedule via his nephew, who lives in [place] and drives patients for his visits here. Comanage with Dr. Cisse. Copy of today's visit note was sent to Drs. Cisse and Zulma. Return for PAT, ultrasound, Likely did not [...] Ramin Sprague MD documented in this encounter [facility] 06-20-2024 Note Date of Procedure 06/20/2024. Boiler Out Information Electrical Engineering Technologist: chelsy. OCT Macula Interpretation Right Eye Findings include Drusen, Drusenoid PED; Negative for Intraretinal fluid, Cystoid macular edema, Subretinal fluid. Left Eye Findings include Drusen, Drusenoid PED; Negative for Intraretinal fluid, Cystoid macular edema, Subretinal fluid. Interval Change Right Eye Stable. Left Eye Stable. [facility] 06-20-2024 Note HNO ID: [id number] Author: ARASH POST MD Service: ? Author [...] agree with all of its relevant components. [facility] 06-20-2024 History of Present illness Narrative [...] its relevant components. documented in this encounter [facility] 06-20-2024 Note Date of Procedure 06/20/2024 [place] Protocol Safety Checklist Sign In: Special equipment [...] Post-procedure follow up management communicated. No specimens. [facility] 05-03-2024 Telephone encounter Note Patient has been reminded to check with pharmacy 24 to 48hr after request. Pt is identified by name and birthdate: Yes Patient phones requesting refills as follows: Requested Prescriptions Pending Prescriptions Disp Refills prednisoLONE acetate (PRED FORTE) 1 % ophthalmic suspension Sig: Use one drop in operative eye as directed by Dr. Sprague starting tomorrow. Please review and advise. [facility] 05-03-2024 Miscellaneous Notes Patient has been reminded [...] review and advise. documented in this encounter [facility] 05-03-2024 Telephone encounter Note Pt [facility] to see at [facility] the one week follow up told the pt to start over with their eye drops. They are currently following the second week instructions 3 times a day. Pt stated they are almost out drops. Only enough for about the rest of the day. [facility] 05-03-2024 Miscellaneous Notes Pt went to see at [facility] at the the one week follow up told the pt to start over with their eye drops. They are currently following the second week instructions 3 times a day. Pt stated they are almost out drops. Only enough for about the rest of the day. documented in this encounter [facility] 04-25-2024 Note HNO ID: [id number] Author: ARASH POST MD Service: ? Author [...] agree with all of its relevant components. [facility] 04-25-2024 Note Date of Procedure 04/25/2024. Interpretation Right Eye Findings include Drusen, Drusenoid PED; Negative for Intraretinal fluid, Cystoid macular edema, Subretinal fluid. Left Eye Findings include PED, Drusen, Drusenoid PED; Negative for Intraretinal fluid, Cystoid macular edema, Subretinal fluid. Interval Change Right Eye Stable. Left Eye Better. [facility] 04-25-2024 Note Date of Procedure 04/25/2024 [place] Protocol Safety Checklist Sign In: A moment [...] communicated. No specimens. Notes Lot # Exp [facility] 04-25-2024 History of Present illness Narrative Neovascular [...] its relevant components. documented in this encounter [facility] 04-12-2024 Note HNO ID: [id number] Author: ELISA CHI OD Service: ? Author Type: NET WASHER Type: Progress Notes Filed: 04/12/2024 10:42 Note [...] Chi, OD April 12, 2024 10:29 AM [facility] 04-12-2024 History of Present illness Narrative [...] 2024 10:29 AM documented in this encounter [facility] 03-14-2024 Note Date of Procedure 03/14/2024. Boiler Out Information Electrical Engineering Technologist: MACIE. Interpretation Right Eye Findings include Drusen, Drusenoid PED; Negative for Intraretinal fluid, Cystoid macular edema, Subretinal fluid. Left Eye Findings include Drusen, Drusenoid PED; Negative for Intraretinal fluid, Cystoid macular edema, Subretinal fluid. Interval Change Right Eye Stable. Left Eye Better. [facility] 03-14-2024 Note Date of Procedure 03/14/2024 [place] Protocol Safety Checklist Sign In: Special equipment [...] Post-procedure follow up management communicated. No specimens. [facility] 03-14-2024 Note HNO ID: [id number] Author: TRINA PANIAGUA COA Service: ? Author Type: Transportation Agent Type: Progress Notes Filed: 03/16/2024 09:08 Note [...] PRAKASH Amador March 14, 2024 8:26 AM [facility] 03-14-2024 Note Date of Procedure 03/14/2024. Boiler Out Information Electrical Engineering Technologist: trina. [facility] 03-14-2024 Note Date of Procedure 03/14/2024. Boiler Out Information Electrical Engineering Technologist: trina. Notes Measurements only - see Procedure [...] 2024 8:26 AM documented in this encounter [facility] 03-14-2024 Note HNO ID: [id number] Author: ARASH POST MD Service: ? Author [...] agree with all of its relevant components. [facility] 03-14-2024 History of Present illness Narrative [...] its relevant components. documented in this encounter [facility] 03-14-2024 Instructions Vinny Jewell APRN.MEDIA MARKETING MANAGER - 03/14/2024 7:25 AM EDT Images from the original note were not included. [facility] PATIENT PREOPERATIVE INSTRUCTIONS Ramin Sprague MD has scheduled you for your procedure at this surgery center: [facility]: [phone] --[address] [facility] [address]. Please read below carefully for your personalized [...] Procedures: - YOU MUST HAVE A RESPONSIBLE BOAT REPAIRER TAKE YOU HOME. A VARNISH FINISHER OR [employer] SCHO[employer] PRINCIPAL CANNOT BE MADE A RESPONSIBLE BOAT REPAIRER. - We recommend that a responsible person stays with you overnight to take care of you. - You cannot stay in a hotel alone after outpatient surgery. You will not be permitted to have your surgery, if you do not have someone to take care of you. If you already have an Advance Directive, please fax a copy to [phone] or email to for it to be [...] into your chart that day. Vinny Jewell APRN.MEDIA MARKETING MANAGER documented in this encounter [facility] 03-14-2024 History and physical note [...] have a large neck STOP-Bang Score: 3 [id number] Score: Age: >=75 Sex: male CHF history: No Hypertension history: Yes Stroke/TIA/thromboembolism history: No Vascular disease history: Yes Diabetes history: Yes [id number] Score: 5 ARISCAT Score: Age: >80 Preoperative [...] fevers. Neuro: No history of TIA's, stroke, RADIO TOWER TECHNICIAN tumor, impaired sensorium, hemiplegia, paraplegia or quadraplegia. [...] 492 QTc Calculation (Bazett) ms 461 R [place] degrees -47 T [place] degrees 178 Resulting Agency [facility] Narrative Performed by [facility] Atrial fibrillation with slow [...] Elvira Bergman DATE: 03/14/2024 TIME: 7:27 AM [facility] 03-14-2024 History and physical note [...] have a large neck STOP-Bang Score: 3 [id number] Score: Age: >=75 Sex: male CHF history: No Hypertension history: Yes Stroke/TIA/thromboembolism history: No Vascular disease history: Yes Diabetes history: Yes [id number] Score: 5 ARISCAT Score: Age: >80 Preoperative [...] fevers. Neuro: No history of TIA's, stroke, RADIO TOWER TECHNICIAN tumor, impaired sensorium, hemiplegia, paraplegia or quadraplegia. [...] 492 QTc Calculation (Bazett) ms 461 R [place] degrees -47 T [place] degrees 178 Resulting Agency [facility] Narrative Performed by [facility] Atrial fibrillation with slow [...] TIME: 7:27 AM documented in this encounter [facility] 02-23-2024 Note HNO ID: [id number] Author: RAMIN SPRAGUE MD Service: ? Author [...] need to continue to wear prism glasses time study observer to correct diplopia and to correct residual [...] will still need to wear prism glasses time study observer after having cataract surgery. - Contact lens [...] if patient desires. 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 Cisse; offered cataract Surgery OD (then OS once cleared by Dr. Post). Comanage with (more content not included)... [facility] 02-23-2024 History of Present illness Narrative [...] need to continue to wear prism glasses time study observer to correct diplopia and to correct residual [...] will still need to wear prism glasses time study observer after having cataract surgery. - Contact lens [...] if patient desires. 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 Cisse; offered cataract Surgery OD (then OS once cleared by Dr. Post). Comanage with Dr. Cisse. Copy of today's visit note was sent to Drs. Cisse and Zulma. Return for PAT, ultrasound, Likely did not [...] Sprague MD 02/23/24 documented in this encounter [facility] 02-15-2024 Note Date of Procedure 02/15/2024 [place] Protocol Safety Checklist Sign In: Special equipment [...] Post-procedure follow up management communicated. No specimens. [facility] 02-15-2024 Note Date of Procedure 02/15/2024. Interpretation Right Eye Findings include Drusen, Drusenoid PED; Negative for Intraretinal fluid, Cystoid macular edema, Subretinal fluid. Left Eye Findings include Subretinal fluid, Drusen, Drusenoid PED. Interval Change Right Eye Initial. Left Eye Initial. [facility] 02-15-2024 Instructions Arash Post MD - 02/15/2024 [...] than dabbing lightly with a tissue An tlcx-mol-jrqroyx pain reliever (i.e. Tylenol) can be used [...] If it is after hours please call [phone] which will give instructions on how to reach the eye doctor network control technician documented in this encounter [facility] 02-15-2024 History of Present illness Narrative Neovascular [...] -Patient is scheduled for an evaluation at Short Follow Up: 1 month for DTI Eylea [...] its relevant components. documented in this encounter [facility] 02-15-2024 Note HNO ID: [id number] Author: ARASH POST MD Service: ? Author [...] -Patient is scheduled for an evaluation at Short Follow Up: 1 month for DTI Eylea [...] agree with all of its relevant components. [facility] 04-03-2022 Note PROCEDURE: XR KNEE R T 4V or > COMPARISON: None. HISTORY: Pain FINDINGS: BONES:No fracture, acute abnormality, or significant arthropathy. SOFT TISSUES:Negative. No visible soft tissue swelling. EFFUSION:None visible. OTHER: Extensive vascular calcification IMPRESSION: No acute abnormality Electronically authenticated by: CHEPE MONTES DE OCA Date: 2022-04-03 18:18 [facility] 03-12-2022 Note Patient here to disc uss LORENZO/cardioversion. Review of Systems Cardiovascular: Positive for leg swelling. Neurological: Positive for light-headedness. All other systems reviewed and are negative. [facility] 03-12-2022 Note [place] [facility] Consul t Note Reason for Consultation: CMP/ Afib HPI: Elvira Bergman is a 81 y.o. year old with past medical history of Afib, [place] s/p PCI/stent placement 01/2017 with prior [place]/stents in 2004 to the LAD and RCA, HFrEF, PVD, DM type II, and HTN. He recently presented to [facility] with c/o worsening SOB. He was found [...] anxious about getting any procedure, despite meeting FLEET DISPATCH MANAGER requirements. PSHx: cardiac cath 2004 FMHx: father - [place] ETOH: denies Tobacco: former smoker Illicit drugs: [...] Atrial Rate 09 (more content not included)... [facility] 02-19-2022 Note [place] [facility] Consul t Note Reason for Consultation: CMP HPI: Elvira Bergman is a 81 y.o. year old with past medical history of Afib, [place] s/p [place]/stent placement 01/2017 with prior [place]/stents in 2004 to the LAD and RCA, HFrEF, PVD, DM type II, and HTN. He recently presented to [facility] with c/o worsening SOB. He was found [...] PSHx: cardiac cath 2004 FMHx: father - [place] ETOH: denies Tobacco: former smoker Illicit drugs: [...] 1st degree AV block, non-specific IVCD EKG (2017): SR with supraventricular premature complexes, IVCD Echo: [...] a 76-year-old male, who was admitted at [facility] with chest pain. His ECG showed ST-elevation concerning for ST-elevation myocardial infarction. Because of that, he was life flighted to [facility]. PROCEDURE: 1. Coronary angiography from right radial access. 2. Balloon angioplasty in LAD. 3. Drug-eluting (more content not included)... [facility] 02-19-2022 Note 1 [facility] Evaluation note Diagnosis Exudative age-related macular degeneration of left eye with active choroidal neovascularization (HCC)- Primary [facility] Diagnosis Nuclear senile cataract of right eye- Primary Nuclear senile cataract of left eye Regular astigmatism of both eyes Regular astigmatism 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, right eye, 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 Nuclear senile cataract of right eye [facility] Diagnosis Pre-op evaluation- Primary Preoperative examination, unspecified Benign prostatic hyperplasia without urinary obstruction Type 2 diabetes mellitus without complication, unspecified whether mcc insulin use (HCC) Pure hypercholesterolemia Essential hypertension Unspecified essential hypertension Persistent atrial fibrillation (HCC) Atrial fibrillation Atherosclerosis of coronary artery without angina pectoris, unspecified vessel or lesion type, unspecified whether [place] or transplanted heart Nuclear senile cataract of right eye * Assessment & Plan Note - Vinny Jewell APRN.CNP - 03/14/2024 7:43 AM EDTAssociated Problem(s): Coronary [...] stable on Flomax documented in this encounter [facility] note* Diagnosis Exudative age-related macular degeneration of left eye with active choroidal neovascularization (HCC)- Primary Pre-op evaluation- Primary Preoperative examination, unspecified Benign prostatic hyperplasia without urinary obstruction Type 2 diabetes mellitus without complication, unspecified whether mcc insulin use (HCC) Pure hypercholesterolemia Essential hypertension Unspecified essential hypertension Persistent atrial fibrillation (HCC) Atrial fibrillation Atherosclerosis of coronary artery without angina pectoris, unspecified vessel or lesion type, unspecified whether [place] or transplanted heart Nuclear senile cataract of right eye documented in this encounter [facility] note* Diagnosis Pre-op evaluation- Primary Preoperative examination, unspecified Benign prostatic hyperplasia without urinary obstruction Type 2 diabetes mellitus without complication, unspecified whether mcc insulin use (HCC) Pure hypercholesterolemia Essential hypertension Unspecified essential hypertension Persistent atrial fibrillation (HCC) Atrial fibrillation Atherosclerosis of coronary artery without angina pectoris, unspecified vessel or lesion type, unspecified whether [place] or transplanted heart Nuclear senile cataract of right eye Nuclear senile cataract of right eye documented in this encounter [facility] note* Diagnosis Pre-op evaluation- Primary Preoperative examination, unspecified Benign prostatic hyperplasia without urinary obstruction Type 2 diabetes mellitus without complication, unspecified whether long term 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 (HCC) Pure hypercholesterolemia Essential hypertension Unspecified essential hypertension Persistent atrial fibrillation (HCC) Atrial fibrillation Atherosclerosis of coronary artery without angina pectoris, unspecified vessel or lesion type, unspecified whether [place] or transplanted heart Pseudophakia, right eye- Primary Lens replaced by other means Combined form of age-related cataract, left eye documented in this encounter [facility] note* Diagnosis Pre-op evaluation- Primary Preoperative examination, unspecified Benign prostatic hyperplasia without urinary obstruction Type 2 diabetes mellitus without complication, unspecified whether long term 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 (HCC) Pure hypercholesterolemia Essential hypertension Unspecified essential hypertension Persistent atrial fibrillation (HCC) Atrial fibrillation Atherosclerosis of coronary artery without angina pectoris, unspecified vessel or lesion type, unspecified whether [place] or transplanted heart Exudative age-related macular degeneration of left eye with active choroidal neovascularization (HCC) documented in this encounter [facility] note* Diagnosis Traumatic closed fracture of C2 vertebra with minimal displacement, initial encounter ([facility]) documented in this encounter [facility] note* Diagnosis Pre-op evaluation- Primary Preoperative examination, unspecified Benign prostatic hyperplasia without urinary obstruction Type 2 diabetes mellitus without complication, unspecified whether mcc insulin use (HCC) Pure hypercholesterolemia Essential hypertension Unspecified essential hypertension Persistent atrial fibrillation (HCC) Atrial fibrillation Atherosclerosis of coronary artery without angina pectoris, unspecified vessel or lesion type, unspecified whether [place] or transplanted heart Exudative age-related macular degeneration of left eye with active choroidal neovascularization (HCC) Combined form of age-related cataract, left eye- Primary documented in this encounter [facility] note* Diagnosis Pre-op evaluation- Primary Preoperative examination, unspecified Benign prostatic hyperplasia without urinary obstruction Type 2 diabetes mellitus without complication, unspecified whether long term 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 (HCC) Pure hypercholesterolemia Essential hypertension Unspecified essential hypertension Persistent atrial fibrillation (HCC) Atrial fibrillation Atherosclerosis of coronary artery without angina pectoris, unspecified vessel or lesion type, unspecified whether [place] or transplanted heart Nuclear senile cataract of [...] of left eye documented in this encounter [facility] note* Diagnosis Pre-op evaluation- Primary Preoperative examination, unspecified Benign prostatic hyperplasia without urinary obstruction Type 2 diabetes mellitus without complication, unspecified whether long term 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 (HCC) Pure hypercholesterolemia Essential hypertension Unspecified essential hypertension Persistent atrial fibrillation (HCC) Atrial fibrillation Atherosclerosis of coronary artery without angina pectoris, unspecified vessel or lesion type, unspecified whether [place] or transplanted heart Pre-op examination- Primary Preoperative examination, unspecified Abnormal finding of blood chemistry, unspecified Benign prostatic hyperplasia without urinary obstruction Type 2 diabetes mellitus without complication, unspecified whether mcc insulin use (HCC) Persistent atrial fibrillation (HCC) Atrial fibrillation Atherosclerosis of coronary artery without angina pectoris, unspecified vessel or lesion type, unspecified whether [place] or transplanted heart Essential hypertension Unspecified essential hypertension Pure hypercholesterolemia Chronic systolic heart failure (HCC) Chronic systolic heart failure Nuclear senile cataract of left eye * Assessment & Plan Note - Christie Cassidy APRN.CNP - 07/16/2024 10:30 AM EST Associated Problem(s): [...] stable on flomax documented in this encounter [facility] note* Diagnosis Pre-op evaluation- Primary Preoperative examination, unspecified Benign prostatic hyperplasia without urinary obstruction Type 2 diabetes mellitus without complication, unspecified whether mcc insulin use (HCC) Pure hypercholesterolemia Essential hypertension Unspecified essential hypertension Persistent atrial fibrillation (HCC) Atrial fibrillation Atherosclerosis of coronary artery without angina pectoris, unspecified vessel or lesion type, unspecified whether [place] or transplanted heart Nuclear senile cataract of left eye Pre-op examination- Primary Preoperative examination, unspecified Abnormal finding of blood chemistry, unspecified Benign prostatic hyperplasia without urinary obstruction Type 2 diabetes mellitus without complication, unspecified whether mcc insulin use (HCC) Persistent atrial fibrillation (HCC) Atrial fibrillation Atherosclerosis of coronary artery without angina pectoris, unspecified vessel or lesion type, unspecified whether [place] or transplanted heart Essential hypertension Unspecified essential hypertension Pure hypercholesterolemia Chronic systolic heart failure (HCC) Chronic systolic heart failure Nuclear senile cataract of left eye [facility] Diagnosis Pre-op evaluation- Primary Preoperative examination, unspecified Benign prostatic hyperplasia without urinary obstruction Type 2 diabetes mellitus without complication, unspecified whether mcc insulin use (HCC) Pure hypercholesterolemia Essential hypertension Unspecified essential hypertension Persistent atrial fibrillation (HCC) Atrial fibrillation Atherosclerosis of coronary artery without angina pectoris, unspecified vessel or lesion type, unspecified whether [place] or transplanted heart Pre-op examination- Primary Preoperative examination, unspecified Abnormal finding of blood chemistry, unspecified Benign prostatic hyperplasia without urinary obstruction Type 2 diabetes mellitus without complication, unspecified whether long term 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 (HCC) Persistent atrial fibrillation (HCC) Atrial fibrillation Atherosclerosis of coronary artery without angina pectoris, unspecified vessel or lesion type, unspecified whether [place] or transplanted heart Essential hypertension Unspecified essential hypertension Pure hypercholesterolemia Chronic systolic heart failure (HCC) Chronic systolic heart failure Exudative age-related macular degeneration of left eye with active choroidal neovascularization (HCC)- Primary Nuclear senile cataract of left eye documented in this encounter [facility] note* Diagnosis Pre-op evaluation- Primary Preoperative examination, unspecified Benign prostatic hyperplasia without urinary obstruction Type 2 diabetes mellitus without complication, unspecified whether long term 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 (HCC) Pure hypercholesterolemia Essential hypertension Unspecified essential hypertension Persistent atrial fibrillation (HCC) Atrial fibrillation Atherosclerosis of coronary artery without angina pectoris, unspecified vessel or lesion type, unspecified whether [place] or transplanted heart Pre-op examination- Primary Preoperative examination, unspecified Abnormal finding of blood chemistry, unspecified Benign prostatic hyperplasia without urinary obstruction Type 2 diabetes mellitus without complication, unspecified whether mcc insulin use (HCC) Persistent atrial fibrillation (HCC) Atrial fibrillation Atherosclerosis of coronary artery without angina pectoris, unspecified vessel or lesion type, unspecified whether [place] or transplanted heart Essential hypertension Unspecified essential hypertension Pure hypercholesterolemia Chronic systolic heart failure (HCC) Chronic systolic heart failure Pseudophakia of both eyes- Primary Lens replaced by other means 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, right eye, intermediate dry stage Strabismus Unspecified disorder of eye movements documented in this encounter [facility] note* Diagnosis Pre-op evaluation- Primary Preoperative examination, unspecified Benign prostatic hyperplasia without urinary obstruction Type 2 diabetes mellitus without complication, unspecified whether mcc insulin use (HCC) Pure hypercholesterolemia Essential hypertension Unspecified essential hypertension Persistent atrial fibrillation (HCC) Atrial fibrillation Atherosclerosis of coronary artery without angina pectoris, unspecified vessel or lesion type, unspecified whether [place] or transplanted heart Pre-op examination- Primary Preoperative examination, unspecified Abnormal finding of blood chemistry, unspecified Benign prostatic hyperplasia without urinary obstruction Type 2 diabetes mellitus without complication, unspecified whether mcc insulin use (HCC) Persistent atrial fibrillation (HCC) Atrial fibrillation Atherosclerosis of coronary artery without angina pectoris, unspecified vessel or lesion type, unspecified whether [place] or transplanted heart Essential hypertension Unspecified essential hypertension Pure hypercholesterolemia Chronic systolic heart failure (HCC) Chronic systolic heart failure Pseudophakia of both eyes- Primary Lens replaced by other means 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, right eye, intermediate dry stage Strabismus Unspecified disorder of eye movements documented in this encounter [facility] note* Diagnosis Pre-op evaluation- Primary Preoperative examination, unspecified Benign prostatic hyperplasia without urinary obstruction Type 2 diabetes mellitus without complication, unspecified whether long term 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 (HCC) Pure hypercholesterolemia Essential hypertension Unspecified essential hypertension Persistent atrial fibrillation (HCC) Atrial fibrillation Atherosclerosis of coronary artery without angina pectoris, unspecified vessel or lesion type, unspecified whether [place] or transplanted heart Pre-op examination- Primary Preoperative examination, unspecified Abnormal finding of blood chemistry, unspecified Benign prostatic hyperplasia without urinary obstruction Type 2 diabetes mellitus without complication, unspecified whether mcc insulin use (HCC) Persistent atrial fibrillation (HCC) Atrial fibrillation Atherosclerosis of coronary artery without angina pectoris, unspecified vessel or lesion type, unspecified whether [place] or transplanted heart Essential hypertension Unspecified essential hypertension Pure hypercholesterolemia Chronic systolic heart failure (HCC) Chronic systolic heart failure Exudative age-related macular degeneration of left eye with active choroidal neovascularization (HCC)- Primary documented in this encounter [facility] note* Diagnosis Pre-op evaluation- Primary Preoperative examination, unspecified Benign prostatic hyperplasia without urinary obstruction Type 2 diabetes mellitus without complication, unspecified whether mcc insulin use (HCC) Pure hypercholesterolemia Essential hypertension Unspecified essential hypertension Persistent atrial fibrillation (HCC) Atrial fibrillation Atherosclerosis of coronary artery without angina pectoris, unspecified vessel or lesion type, unspecified whether [place] or transplanted heart Pre-op examination- Primary Preoperative examination, unspecified Abnormal finding of blood chemistry, unspecified Benign prostatic hyperplasia without urinary obstruction Type 2 diabetes mellitus without complication, unspecified whether mcc insulin use (HCC) Persistent atrial fibrillation (HCC) Atrial fibrillation Atherosclerosis of coronary artery without angina pectoris, unspecified vessel or lesion type, unspecified whether [place] or transplanted heart Essential hypertension Unspecified essential hypertension Pure hypercholesterolemia Chronic systolic heart failure (HCC) Chronic systolic heart failure Exudative age-related macular degeneration of left eye with active choroidal neovascularization (HCC)- Primary documented in this encounter [facility] note* Diagnosis Pre-op evaluation- Primary Preoperative examination, unspecified Benign prostatic hyperplasia without urinary obstruction Type 2 diabetes mellitus without complication, unspecified whether long term 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 (HCC) Pure hypercholesterolemia Essential hypertension Unspecified essential hypertension Persistent atrial fibrillation (HCC) Atrial fibrillation Atherosclerosis of coronary artery without angina pectoris, unspecified vessel or lesion type, unspecified whether [place] or transplanted heart Pre-op examination- Primary Preoperative examination, unspecified Abnormal finding of blood chemistry, unspecified Benign prostatic hyperplasia without urinary obstruction Type 2 diabetes mellitus without complication, unspecified whether long term 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 (HCC) Persistent atrial fibrillation (HCC) Atrial fibrillation Atherosclerosis of coronary artery without angina pectoris, unspecified vessel or lesion type, unspecified whether [place] or transplanted heart Essential hypertension Unspecified essential hypertension Pure hypercholesterolemia Chronic systolic heart failure (HCC) Chronic systolic heart failure Exudative age-related macular degeneration of left eye with active choroidal neovascularization (HCC) [facility] Pre-op evaluation- Primary Preoperative examination, unspecified Benign prostatic hyperplasia without urinary obstruction Type 2 diabetes mellitus without complication, unspecified whether long term 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 (HCC) Pure hypercholesterolemia Essential hypertension Unspecified essential hypertension Persistent atrial fibrillation (HCC) Atrial fibrillation Atherosclerosis of coronary artery without angina pectoris, unspecified vessel or lesion type, unspecified whether [place] or transplanted heart Pre-op examination- Primary Preoperative examination, unspecified Abnormal finding of blood chemistry, unspecified Benign prostatic hyperplasia without urinary obstruction Type 2 diabetes mellitus without complication, unspecified whether mcc insulin use (HCC) Persistent atrial fibrillation (HCC) Atrial fibrillation Atherosclerosis of coronary artery without angina pectoris, unspecified vessel or lesion type, unspecified whether [place] or transplanted heart Essential hypertension Unspecified essential hypertension Pure hypercholesterolemia Chronic systolic heart failure (HCC) Chronic systolic heart failure Exudative age-related macular degeneration of left eye with active choroidal neovascularization (HCC)- Primary documented in this encounter [facility] Summary Purpose Family History No Family History [...] and content) DATE CREATED AUTHOR 11/15/[address] [facility] DATE CREATED AUTHOR AUTHOR'S ORGANIZ ATION 05/21/2022 [facility] DATE CREATED AUTHOR AUTHOR'S ORGANIZ ATION 07/14/2022 [facility] DATE CREATED AUTHOR AUTHOR'S ORGANIZ ATION 10/29/2022 [facility] DATE CREATED AUTHOR AUTHOR'S ORGANIZ ATION 07/30/2023 [facility] DATE CREATED AUTHOR AUTHOR'S ORGANIZ ATION 09/08/2023 [facility] DATE CREATED AUTHOR AUTHOR[facility]S [facility]IZ ATION [facility]20[facility] DATE CREATED AUTHOR AUTHOR'S ORGANIZ ATION 03/30/2024 [facility] DATE CREATED AUTHOR AUTHOR'S ORGANIZ ATION 01/25/2025 [facility] Source Comments (unrecognize d section and content) In the event this informatio n is protected by the Federal Confidentiality of Alcohol and Drug Abuse Patient Records regulations: The Federal rules restrict any use of the information to criminally investigate or prosecute any alcohol or drug abuse patient.[facility] the event this information is protected by the Federal Confidentiality of Alcohol and Drug Abuse Patient Records regulations: The Federal rules restrict any use of the information to criminally investigate or prosecute any alcohol or drug abuse patient.[facility] the event this information is protected by the Federal Confidentiality of Alcohol and Drug Abuse Patient Records regulations: The Federal rules restrict any use of the information to criminally investigate or prosecute any alcohol or drug abuse patient.[facility] the event this information is protected by the Federal Confidentiality of Alcohol and Drug Abuse Patient Records regulations: The Federal rules restrict any use of the information to criminally investigate or prosecute any alcohol or drug abuse patient.[facility] the event this information is protected by the Federal Confidentiality of Alcohol and Drug Abuse Patient Records regulations: The Federal rules restrict any use of the information to criminally investigate or prosecute any alcohol or drug abuse patient.[facility] the event this information is protected by the Federal Confidentiality of Alcohol and Drug Abuse Patient Records regulations: The Federal rules restrict any use of the information to criminally investigate or prosecute any alcohol or drug abuse patient.[facility] the event this information is protected by the Federal Confidentiality of Alcohol and Drug Abuse Patient Records regulations: The Federal rules restrict any use of the information to criminally investigate or prosecute any alcohol or drug abuse patient.[facility] the event this information is protected by the Federal Confidentiality of Alcohol and Drug Abuse Patient Records regulations: The Federal rules restrict any use of the information to criminally investigate or prosecute any alcohol or drug abuse patient.[facility] the event this information is protected by the Federal Confidentiality of Alcohol and Drug Abuse Patient Records regulations: The Federal rules restrict any use of the information to criminally investigate or prosecute any alcohol or drug abuse patient.[facility] the event this information is protected by the Federal Confidentiality of Alcohol and Drug Abuse Patient Records regulations: The Federal rules restrict any use of the information to criminally investigate or prosecute any alcohol or drug abuse patient.[facility] the event this information is protected by the Federal Confidentiality of Alcohol and Drug Abuse Patient Records regulations: The Federal rules restrict any use of the information to criminally investigate or prosecute any alcohol or drug abuse patient.[facility] the event this information is protected by the Federal Confidentiality of Alcohol and Drug Abuse Patient Records regulations: The Federal rules restrict any use of the information to criminally investigate or prosecute any alcohol or drug abuse patient.[facility] the event this information is protected by the Federal Confidentiality of Alcohol and Drug Abuse Patient Records regulations: The Federal rules restrict any use of the information to criminally investigate or prosecute any alcohol or drug abuse patient.[facility] the event this information is protected by the Federal Confidentiality of Alcohol and Drug Abuse Patient Records regulations: The Federal rules restrict any use of the information to criminally investigate or prosecute any alcohol or drug abuse patient.[facility] the event this information is protected by the Federal Confidentiality of Alcohol and Drug Abuse Patient Records regulations: The Federal rules restrict any use of the information to criminally investigate or prosecute any alcohol or drug abuse patient.[facility] the event this information is protected by the Federal Confidentiality of Alcohol and Drug Abuse Patient Records regulations: The Federal rules restrict any use of the information to criminally investigate or prosecute any alcohol or drug abuse patient.[facility] the event this information is protected by the Federal Confidentiality of Alcohol and Drug Abuse Patient Records regulations: The Federal rules restrict any use of the information to criminally investigate or prosecute any alcohol or drug abuse patient.[facility] the event this information is protected by the Federal Confidentiality of Alcohol and Drug Abuse Patient Records regulations: The Federal rules restrict any use of the information to criminally investigate or prosecute any alcohol or drug abuse patient.[facility] the event this information is protected by the Federal Confidentiality of Alcohol and Drug Abuse Patient Records regulations: The Federal rules restrict any use of the information to criminally investigate or prosecute any alcohol or drug abuse patient.[facility] the event this information is protected by the Federal Confidentiality of Alcohol and Drug Abuse Patient Records regulations: The Federal rules restrict any use of the information to criminally investigate or prosecute any alcohol or drug abuse patient.[facility] the event this information is protected by the Federal Confidentiality of Alcohol and Drug Abuse Patient Records regulations: The Federal rules restrict any use of the information to criminally investigate or prosecute any alcohol or drug abuse patient.[facility] Reason for Visit (unrecogniz ed section and [...] but is not as solid as OS. Reason Comments Macular Degeneration Follow Up Nonexudative Macular Degeneration Follow Up Care Teams (unrecognized sec tion and content) Fire Support Specialist Relationship Specialty Start Date End Date Bridget Farley MD [address] [phone] PCP - General Family Medicine 04/11/24 Fire Support Specialist Relationship Specialty Start Date End Date Bridget Farley MD [address] [phone] PCP - General Family Medicine 04/11/24 Fire Support Specialist Relationship Specialty Start Date End Date Bridget Farley MD [address] [place] [address] PCP - General Family Medicine 04/11/24 Fire Support Specialist Relationship Specialty Start Date End Date Bridget Farley MD [address] [place] [address] PCP - General Family Medicine 04/11/24 Fire Support Specialist Relationship Specialty Start Date End Date Bridget Farley MD [address] [facility] [place] [address] PCP - General Family Medicine 04/11/24 Fire Support Specialist Relationship Specialty Start Date End Date Bridget Farley MD [address] [place] [address] PCP - General Family Medicine 04/11/24 Fire Support Specialist Relationship Specialty Start Date End Date Bridget Farley MD [address] [place] [address] PCP - General Family Medicine 04/11/24 Fire Support Specialist Relationship Specialty Start Date End Date Bridget Farley MD [address] [place] [address] PCP - General Family Medicine 04/11/24 Fire Support Specialist Relationship Specialty Start Date End Date Bridget Farley MD [address] [place] [address] PCP - General Family Medicine 04/11/24 Fire Support Specialist Relationship Specialty Start Date End Date Bridget Farley MD [address] [place] [address] PCP - General Family Medicine 04/11/24 Fire Support Specialist Relationship Specialty Start Date End Date Bridget Farley MD [address] [place] [address] PCP - General Family Medicine 04/11/24 Fire Support Specialist Relationship Specialty Start Date End Date Bridget Farley MD [address] [place] [address] PCP - General Family Medicine 04/11/24 FOR [...] BE BASED ON THE PRIMARY CLINICAL RECORDS. [facility] [employer] [facility]. provides no warranty or guarantee of the accuracy or completeness of information in this document.
[2025-02-08 11:14] LABS: Alanine Aminotransferase 26 U/L (16-63); Albumin Globulin Ratio 0.8; Albumin Level 3.4 g/dL (3.4-5.0); Alkaline Phosphatase 100 U/L (46-116); Anion Gap 13.9; Aspartate Amino Transferase 12 U/L (15-37); Blood Urea Nitrogen 28.0 mg/dL (7.0-18.0); Calcium 9.2 mg/dL (8.5-10.1); Carbon Dioxide 29.9 mmol/L (21.0-32.0); Chloride 103 mmol/L (98-107); Estimated GFR (African America 55 (>=60 mL/min/1.73m^2); Estimated GFR (Non-African Ame 45 (>=60 mL/min/1.73m^2); Globulin 4.2 g/dL; Glucose 156 mg/dL (74-106); Potassium 4.8 mmol/L (3.5-5.1); Sodium 142 mmol/L (136-145); Total Protein 7.6 g/dL (6.4-8.2)
[2025-02-08 11:23] LABS: NT Pro B Type Natriuretic Pept 5781.0 pg/mL (<=1800.0)
== END 2025-02-08 10:17 | disposition home or self-care (01) ==
PROVIDERS: PCP Family Medicine; Visit Provider Family Medicine
DX: Z79.899 Other long term (current) drug therapy (principal); R60.9 Edema, unspecified; I50.30 Unspecified diastolic (congestive) heart failure; I11.0 Hypertensive heart disease with heart failure
CPT/HCPCS: 36415; 80053; 83880

== ENCOUNTER 2025-02-14 12:52 | Outpatient (OUT) | payer MEDICARE, OTHER, SELFPAY ==
--- NOTE | 2025-02-14 13:00 | CA_ITS ---
Patient Name: ELVIRA BERGMAN MR#: [id number] : 1940 Exam Date: 02/14/2025 Ordering Doctor: DR BRIDGET FARLEY . ECHOCARDIOGRAM REPORT PROCEDURE: CA ECHO DOPPLER COMPLETE INDICATIONS: Coronary artery disease, atrial fibrillation, STEMI COMPARISON: None. DESCRIPTION: COMPLETE ECHOCARDIOGRAM Real-time transthoracic echocardiography with 2D, M-mode, spectral and color flow Doppler performed. QUALITY: Technical quality was good. LEFT VENTRICLE: Mild dilatation. Borderline left ventricular hypertrophy. There is akinesis of the mid and distal septum and apex. Systolic function is moderately to severely reduced. LV EF: Moderately to severely reduced left ventricular ejection fraction, (25-30%). DIASTOLIC: Not adequately assessed due to heart rhythm. ATRIAL SEPTUM: Visually appears intact. LEFT ATRIUM: Moderate dilatation. RIGHT ATRIUM: Moderate dilatation. RIGHT VENTRICLE: Mild dilatation. Systolic function is normal. TRICUSPID VALVE: Normal mobility and thickness. No stenosis with mild regurgitation. No evidence of pulmonary hypertension. RVSP 33 mmHg MITRAL VALVE: Normal mobility and thickness. No evidence of mitral valve stenosis. There is no mitral annular calcification. Moderate mitral regurgitation. AORTIC VALVE: Normal trileaflet appearance. No visible sclerosis. Normal leaflet mobility. No evidence of aortic valve stenosis. No aortic regurgitation. AORTIC ROOT: Normal diameter and appearance, measuring 3.8 cm. PULMONIC VALVE: Normal thickness and mobility. No stenosis. No regurgitation. PERICARDIUM: No evidence of pericardial effusion. IVC: Collapses with inspiration. IVC is normal in size. PLEURA: CONCLUSION: 1. The left ventricle is mildly dilated. There is akinesis of the mid and distal septum and apex. Systolic function is moderately to severely reduced. Estimated LVEF is 25-30%. 2. Mildly dilated right ventricle with normal systolic function. 3. Moderate biatrial dilatation. 4. Moderate mitral regurgitation. 5. Mild tricuspid regurgitation. 6. Normal right-sided pressures. Adult Echocardiography Procedure Report Left Ventricle LVEDD (3.7 - 5.6 cm): 6.07 cm LVESD (2.2 - 4.0 cm): 4.09 cm LVIVS thickness (0.6 - 1.2 cm): 0.91 cm LVPW thickness (0.5 - 1.0 cm): 1.18 cm LVOT Max Gradient: 1.15 mm[Hg], 0.92 mm[Hg] LVOT Area (cm2): 0.51 m/s Peak Velocity (LVOT): 0.54 m/s, 0.48 m/s LVOT Diameter 2.48 cm Left Atrium LA Volume Index (2D A2C): 66.78 ml/m2 Left Atrium Systolic Dimension: 4.31 cm Mitral Valve Mitral Valve E-Wave Peak Velocity: 0.77 m/s Right Ventricle Aorta AO Root Diam: 3.76 cm Aortic Valve AoV Area (Peak Enzo): 2.99 cm2, 3.31 cm2, 2.70 cm2 Peak Velocity(Antegrade Flow): 0.78 m/s, 0.86 m/s Peak Gradient(Antegrade Flow): 2.46 mm[Hg], 2.95 mm[Hg] Tricuspid Valve Peak Velocity (Regurgitant Flow): 2.64 m/s, 2.76 m/s Pulmonic Valve Peak Velocity: 0.66 m/s Peak Gradient: 1.90 mm[Hg], 1.98 mm[Hg], 1.42 mm[Hg] Right Atrium Right Atrium Systolic Pressure: 116.28 ml, 116.28 ml Dictated by: Spencer Sánchez M.D. on 02/14/2025 at 17:27 Approved by: Spencer Sánchez M.D. on 02/14/2025 at 17:33
--- OUTSIDE RECORDS SUMMARY | 2025-02-14 13:00 | XMS_ITS | CCD ---
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 By: #### P T, BMPX, CDP ####[facility] [address] [place] [address] Lab Director: Dl Jean DO Creatinine [Mass/Vol] 0.9 mg/dL Normal 0.7-1.2 [facility] Comment on above: Performed By: #### P T, BMPX, CDP ####[facility] Atj2763 [facility] [place] [address] Lab Director: Dl Jean DO GFR/1.73 sq M.predicted among non-blacks MDRD (S/P/Bld) [Vol rate/Area] mL/min/{1.73_m2} Normal >60 [facility] Comment on above: Result Comment: These results [...] Performed By: #### P T BMPX, CDP ####[facility] Jqh6466 [facility] [place] [address] Lab Director: Dl Jean DO Glucose [Mass/Vol] 202 mg/dL High 70-99 [facility] Comment on above: Performed By: #### P T BMPX, MHAOGANY ####[facility] Bfv0686 [facility] [place] [address] Lab Director: Dl Jean DO Potassium [Moles/Vol] 5.0 mmol/L Normal 3.7-5.3 [facility] Comment on above: Performed By: #### P T BMPX, MAHOGANY ####[facility] Pfg4789 [facility] [place] [address] Lab Director: Dl Jean DO Sodium [Moles/Vol] 136 mmol/L Normal 135-144 [facility] Comment on above: Performed By: #### P T, BMPX, CDP ####[facility] Mlx3297 [facility] [place] [address] Lab Director: Dl Jean DO Urea nitrogen [Mass/Vol] 19 mg/dL Normal 8-23 [facility] Comment on above: Performed By: #### P T, BMPX, CDP ####[facility] [address], [place] [phone] Director: Dl Jean DO CBC with Diffon 07-27-2023 Abs. Basophil 0.10 k/uL Normal 0.0-0.2 [facility] Comment on above: Performed By: #### P T, BMPX, CDP ####[facility] Pvr8738 [facility] [place], [place] [phone] Director: Dl Jean DO Abs.Neutrophil (Seg) 7.40 k/uL Normal 1.3-9.1 [facility] Comment on above: Performed By: #### P T, BMPX, CDP ####[facility] [address] [facility] [place] [address] Lab Director: Dl Jean DO Basophils/100 WBC (Bld) 1 % Normal 0-2 [facility] Comment on above: Performed By: #### P T, BMPX, CDP ####[facility] [id number] [place] [address].[place] [address] Lab Director: Dl Jean DO Eosinophils (Bld) [#/Vol] 0.10 10*3/uL Normal 0.0-0.4 [facility] Comment on above: Performed By: #### P T, BMPX, CDP ####[facility] [address] [facility] [place] [address] Lab Director: Dl Jean DO Eosinophils/100 WBC (Bld) 1 % Normal 0-4 [facility] Comment on above: Performed By: #### P T, BMPX, CDP ####[facility] [id number] [place] [address] [facility] [place] [address] Lab Director: Dl Jean DO Erythrocyte distribution width (RBC) [Ratio] 18.2 % High 11.5-14.9 [facility] Comment on above: Performed By: #### P T, BMPX, CDP ####[facility] [address]bf[address] [facility] [place] [address] [facility] Director: Dl Jean DO Hematocrit (Bld) [Volume fraction] 35.3 % Low 41-53 [facility] Comment on above: Performed By: #### P T, BMPX, CDP ####[address] [place] [address] [facility] Director: Dl Jean DO Hemoglobin (Bld) [Mass/Vol] 11.3 g/dL Low 13.5-17.5 [facility] Comment on above: Performed By: #### P T, BMPX, CDP ####[facility] Jef6241 [facility] [place] [address] [facility] Director: Dl Jean DO Lymphocytes (Bld) [#/Vol] 0.70 10*3/uL Low 1.0-4.8 [facility] Comment on above: Performed By: #### P T, BMPX, CDP ####[address] [place] [address] Lab Director: Dl Jean DO Lymphocytes/100 WBC (Bld) 8 % Low 24-44 [facility] Comment on above: Performed By: #### P T, BMPX, CDP ####[facility] [address] [place] [address].[place] [address] Lab Director: Dl Jean DO MCH (RBC) [Entitic mass] 30.9 pg Normal 26-34 [facility] Comment on above: Performed By: #### P T, BMPX, CDP ####[facility] Tkh[address] [facility] [place] [address] Lab Director: Dl Jean DO MCHC (RBC) [Mass/Vol] 32.1 g/dL Normal 31-37 [facility] Comment on above: Performed By: #### P T, BMPX, CDP ####[facility] Lbx0879 [facility] [place] [address] Lab Director: Dl Jean DO MCV (RBC) [Entitic vol] 96.4 fL Normal 80-100 [facility] Comment on above: Performed By: #### P T, BMPX, CDP ####[facility] [id number] [place] [address] [phone] Director: Dl Jean DO Monocytes (Bld) [#/Vol] 0.80 10*3/uL Normal 0.1-1.3 [facility] Comment on above: Performed By: #### P T, BMPX, CDP ####[facility] Dkd1194 [place] [address] Lab Director: Dl Jean DO Monocytes/100 WBC (Bld) 9 % High 1-7 [facility] Comment on above: Performed By: #### P T, BMPX, CDP ####[facility] [id number] [place] [address] Lab Director: Dl Jean DO Neutrophil (Seg) 81 % High 36-66 [facility] Comment on above: Performed By: #### P T, BMPX, CDP ####[facility] [id number] [place] [address] [phone] Director: Dl Jean DO Platelet mean volume (Bld) [Entitic vol] 7.3 fL Normal 6.0-12.0 [facility] Comment on above: Performed By: #### P T, BMPX, CDP ####[facility] [address] [place] [address] Lab Director: Dl Jean DO Platelets (Bld) [#/Vol] 331 10*3/uL Normal 150-450 [facility] Comment on above: Performed By: #### P T, BMPX, CDP ####[facility] [address] [place] [address] lab Director: Dl Jean DO RBC (Bld) [#/Vol] 3.66 10*6/uL Low 4.5-5.9 [facility] Comment on above: Performed By: #### P T, BMPX, CDP ####[facility] [address] [place] [address] Lab Director: Dl Jean DO WBC (Bld) [#/Vol] 9.0 10*3/uL Normal 3.5-11.0 [facility] Comment on above: Performed By: #### P T, BMPX, CDP ####[facility] [address] [place] [address] lab Director: Dl Jean DO Glucose,Whole Bloodon 2023 Glucose [Mass/Vol] 197 mg/dL High 75-110 [facility] Glucose [Mass/Vol] 163 mg/dL High 75-110 [facility] Glucose [Mass/Vol] 141 mg/dL High 75-110 [facility] PTon 07-27-2023 INR Coag (PPP) [Relative time] 1.8 {INR} Normal [facility] Comment on above: Result Comment: Therapeutic Range: Moderate Anticoagulant Intensity: INR = 2.0-3.0 High Anticoagulant Intensity: INR = 2.5-3.5 Performed By: #### P T, BMPX, CDP ####[facility] [address] [place] [address] lab Director: Dl Jean DO PT Coag (PPP) [Time] 21.5 s High 11.8-14.6 [facility] Comment on above: Performed By: #### P TDESTINEYX, MAHOGANY ####[facility] [address] [place] [address] lab Director: Dl Jean DO Glucose,Whole Bloodon 2023 Glucose [Mass/Vol] 135 mg/dL High 75-110 [facility] Glucose [Mass/Vol] 151 mg/dL High 75-110 [facility] Glucose [Mass/Vol] 187 mg/dL High 75-110 [facility] Glucose [Mass/Vol] 148 mg/dL High 75-110 [facility] PTon 07-26-2023 INR Coag (PPP) [Relative time] 2.5 {INR} Normal [facility] Comment on above: Result Comment: Therapeutic Range: Moderate Anticoagulant Intensity: INR = 2.0-3.0 High Anticoagulant Intensity: INR = 2.5-3.5 Performed By: #### P T ####[facility] [id number] [place] [address] lab Director: Dl Jean DO PT Coag (PPP) [Time] 26.8 s High 11.8-14.6 [facility] Comment on above: Performed By: #### P T ####[facility] [id number] [place] [address] lab Director: Dl Jean DO Glucose,Whole Bloodon 2023 Glucose [Mass/Vol] 197 mg/dL High 75-110 [facility] Glucose [Mass/Vol] 156 mg/dL High 75-110 [facility] Glucose [Mass/Vol] 160 mg/dL High 75-110 [facility] Glucose [Mass/Vol] 147 mg/dL High 75-110 [facility] PTon 07-25-2023 INR Coag (PPP) [Relative time] 2.1 {INR} Normal [facility] Comment on above: Result Comment: Therapeutic Range: Moderate Anticoagulant Intensity: INR = 2.0-3.0 High Anticoagulant Intensity: INR = 2.5-3.5 Performed By: #### P T ####[facility] [id number] [facility] [place] [place] [address] Lab Director: Dl Jean DO PT Coag (PPP) [Time] 23.9 s High 11.8-14.6 [facility] Comment on above: Performed By: #### P T ####[facility] Son7396 [facility] [place] [address] Lab Director: Dl Jean DO Glucose,Whole Bloodon 2023 Glucose [Mass/Vol] 146 mg/dL High 75-110 [facility] Glucose [Mass/Vol] 182 mg/dL High 75-110 [facility] Glucose [Mass/Vol] 183 mg/dL High 75-110 [facility] Glucose [Mass/Vol] 147 mg/dL High 75-110 [facility] Glucose [Mass/Vol] 151 mg/dL High 75-110 [facility] PTon 07-24-2023 INR Coag (PPP) [Relative time] 1.8 {INR} Normal [facility] Comment on above: Result Comment: Therapeutic Range: Moderate Anticoagulant Intensity: INR = 2.0-3.0 High Anticoagulant Intensity: INR = 2.5-3.5 Performed By: #### P T ####[facility] Oxy7346 [facility] [place] [address] Lab Director: Dl Jean DO PT Coag (PPP) [Time] 21.3 s High 11.8-14.6 [facility] Comment on above: Performed By: #### P T ####[facility] Oqg8780 [facility] [place] [place] [address] lab Director: Fanelly, Dl, DO Glucose,Whole Bloodon 2023 Glucose [Mass/Vol] 154 mg/dL High 75-110 [facility] Glucose [Mass/Vol] 202 mg/dL High 75-110 [facility] Glucose [Mass/Vol] 180 mg/dL High 75-110 [facility] Liver Profileon 07-23-2023 Albumin [Mass/Vol] 3.6 g/dL Normal 3.5-5.2 [facility] Comment on above: Performed By: #### P T, LIVP ####[facility] Pzy7378 [facility] [place] [address] Lab Director: Dl Jean DO Alkaline Phos 178 U/L High 40-129 [facility] Comment on above: Performed By: #### P T, LIVP ####[facility] Vzk7033 [facility] [place] [address] Lab Director: Dl Jean DO ALT [Catalytic activity/Vol] 59 U/L High 5-41 [facility] Comment on above: Performed By: #### P T, LIVP ####[facility] Rbk6632 [facility] [place] [address] Lab Director: Dl Jean DO AST [Catalytic activity/Vol] 27 U/L Normal <40 [facility] Comment on above: Performed By: #### P T, LIVP ####[facility] Lhj4823 [facility] [place] [address] Lab Director: Dl Jean DO Bilirubin [Mass/Vol] 0.5 mg/dL Normal 0.3-1.2 [facility] Comment on above: Performed By: #### P T, LIVP ####[facility] Tsx5308 [facility] [place] [address] Lab Director: Dl Jean DO Bilirubin, Indirect 0.3 mg/dL Normal 0.0-1.0 [facility] Comment on above: Performed By: #### P T, LIVP ####[facility] Qxx[address] [facility] [place] [address] Lab Director: Dl Jean DO Bilirubin.indirec t [Mass/Vol] 0.2 mg/dL Normal <0.3 [facility] Comment on above: Performed By: #### P T, LIVP ####[facility] Aaa3332 [place] [address] lab Director: Dl Jean DO Protein [Mass/Vol] 6.3 g/dL Low 6.4-8.3 [facility] Comment on above: Performed By: #### P T, LIVP ####[facility] Bjv5947 [place] [address] lab Director: Dl Jean DO PTon 07-23-2023 INR Coag (PPP) [Relative time] 1.6 {INR} Normal [facility] Comment on above: Result Comment: Therapeutic Range: Moderate Anticoagulant Intensity: INR = 2.0-3.0 High Anticoagulant Intensity: INR = 2.5-3.5 Performed By: #### P T, LIVP ####[facility] Nuj6116 [place] [address] lab Director: Dl Jean DO PT Coag (PPP) [Time] 19.1 s High 11.8-14.6 [facility] Comment on above: Performed By: #### P T, LIVP ####[facility] Imu2455 [place] [address] lab Director: Dl Jean DO Glucose,Whole Bloodon 2023 Glucose [Mass/Vol] 211 mg/dL High 75-110 [facility] Glucose [Mass/Vol] 131 mg/dL High 75-110 [facility] Glucose [Mass/Vol] 227 mg/dL High 75-110 [facility] Glucose [Mass/Vol] 181 mg/dL High 75-110 [facility] PTon 07-22-2023 INR Coag (PPP) [Relative time] 1.5 {INR} Normal [facility] Comment on above: Result Comment: Therapeutic Range: Moderate Anticoagulant Intensity: INR = 2.0-3.0 High Anticoagulant Intensity: INR = 2.5-3.5 Performed By: #### P T ####[facility] Clf[address] [facility] [place] [address] lab Director: Dl Jean DO PT Coag (PPP) [Time] 18.0 s High 11.8-14.6 [facility] Comment on above: Performed By: #### P T ####[facility] Nks9964 [facility] [place] [address] lab Director: Dl Jean DO Glucose,Whole Bloodon 2023 Glucose [Mass/Vol] 148 mg/dL High 75-110 [facility] Glucose [Mass/Vol] 253 mg/dL High 75-110 [facility] Glucose [Mass/Vol] 190 mg/dL High 75-110 [facility] Glucose [Mass/Vol] 171 mg/dL High 75-110 [facility] PTon 07-21-2023 INR Coag (PPP) [Relative time] 1.5 {INR} Normal [facility] Comment on above: Result Comment: Therapeutic Range: Moderate Anticoagulant Intensity: INR = 2.0-3.0 High Anticoagulant Intensity: INR = 2.5-3.5 Performed By: #### P T ####[facility] Mpt6909 [facility] [place] [address] lab Director: Dl Jean DO PT Coag (PPP) [Time] 17.9 s High 11.8-14.6 [facility] Comment on above: Performed By: #### P T ####[facility] Abp3146 [facility] [place] [place] [address] lab Director: Dl Jean DO XR CERVICAL [...] Antonieta Banuelos MD 07/21/23 Final result Normal [facility] Basic Metab w/rfx MGon 07-20 Anion gap [Moles/Vol] 12 mmol/L Normal 9-17 [facility] Comment on above: Performed By: #### L IVP, BMPX, PT, CDP ####[facility] Cdg7992 [facility] [place] [place] [address] lab Director: Dl Jean DO Calcium [Mass/Vol] 8.9 mg/dL Normal 8.6-10.4 [facility] Comment on above: Performed By: #### L IVP, BMPX, PT, CDP ####[facility] Iyg7367 [facility] [place] [address] [facility] Director: Dl Jean DO Chloride [Moles/Vol] 102 mmol/L Normal 98-107 [facility] Comment on above: Performed By: #### L IVP, BMPX, PT, CDP ####[facility] Opm[address] [facility] [place] [address] lab Director: Dl Jean DO CO2 [Moles/Vol] 23 mmol/L Normal 20-31 [facility] Comment on above: Performed By: #### L IVP, BMPX, PT, CDP ####[facility] Mjh0945 [facility] [place] [address] Lab Director: Dl Jean DO Creatinine [Mass/Vol] 0.9 mg/dL Normal 0.7-1.2 [facility] Comment on above: Performed By: #### L IVP, BMPX, PT, CDP ####[facility] Ani8870 [facility] [place] [place] [address] Lab Director: Dl Jean DO GFR/1.73 sq M.predicted among non-blacks MDRD (S/P/Bld) [Vol rate/Area] mL/min/{1.73_m2} Normal >60 [facility] Comment on above: Result Comment: These results [...] By: #### L IVP, BMPX, PT, CDP ####[facility] [address] [facility], [place] [address] Lab Director: Dl Jean DO Glucose [Mass/Vol] 173 mg/dL High 70-99 [facility] Comment on above: Performed By: #### L IVP, BMPX, PT, CDP ####[facility] Kgq9381 [facility] [place] [address] Lab Director: Dl Jean DO Potassium [Moles/Vol] 4.8 mmol/L Normal 3.7-5.3 [facility] Comment on above: Performed By: #### L IVP, BMPX, PT, CDP ####[facility] Idz4102 [facility] [place] [address] Lab Director: Dl Jean DO Sodium [Moles/Vol] 137 mmol/L Normal 135-144 [facility] Comment on above: Performed By: #### L IVP, BMPX, PT, CDP ####[facility] Wyv2673 [facility], [place] [phone] Director: Dl Jean DO Urea nitrogen [Mass/Vol] 19 mg/dL Normal 8-23 [facility] Comment on above: Performed By: #### L IVP, BMPX, PT, CDP ####[facility] Zwd2262 [place], [place] [phone] Director: Dl Jean DO CBC with Diffon 07-20-2023 Abs. Basophil 0.10 k/uL Normal 0.0-0.2 [facility] Comment on above: Performed By: #### L IVP, BMPX, PT, CDP ####[facility] Clf9213 [facility], [place] [phone] Director: Dl Jean DO Abs.Neutrophil (Seg) 5.00 k/uL Normal 1.3-9.1 [facility] Comment on above: Performed By: #### L IVP, BMPX, PT, CDP ####[facility] Wjq0283 [place], [place] [phone] Director: Dl Jean DO Basophils/100 WBC (Bld) 1 % Normal 0-2 [facility] Comment on above: Performed By: #### L IVP, BMPX, PT, CDP ####[facility] Grr7227 [facility], [place] [phone] Director: Dl Jean DO Eosinophils (Bld) [#/Vol] 0.10 10*3/uL Normal 0.0-0.4 [facility] Comment on above: Performed By: #### L IVP, BMPX, PT, CDP ####[facility] Erl9049 [facility] [place] [address] Lab Director: Dl Jean DO Eosinophils/100 WBC (Bld) 2 % Normal 0-4 [facility] Comment on above: Performed By: #### L IVP, BMPX, PT, CDP ####[facility] Zfq[address] [place] [address] lab Director: Dl Jean DO Erythrocyte distribution width (RBC) [Ratio] 16.4 % High 11.5-14.9 [facility] Comment on above: Performed By: #### L IVP, BMPX, PT, CDP ####[facility] Wej[address] [place] [address] Lab Director: Dl Jean DO Hematocrit (Bld) [Volume fraction] 34.5 % Low 41-53 [facility] Comment on above: Performed By: #### L IVP, BMPX, PT, CDP ####[facility] Cnc[address] [place] [address] Lab Director: Dl Jean DO Hemoglobin (Bld) [Mass/Vol] 11.0 g/dL Low 13.5-17.5 [facility] Comment on above: Performed By: #### L IVP, BMPX, PT, CDP ####[facility] Oxs[address] [place] [address] Lab Director: Dl Jean DO Lymphocytes (Bld) [#/Vol] 1.10 10*3/uL Normal 1.0-4.8 [facility] Comment on above: Performed By: #### L IVP, BMPX, PT, CDP ####[facility] Raw[address] [place] [address] Lab Director: Dl Jean DO Lymphocytes/100 WBC (Bld) 15 % Low 24-44 [facility] Comment on above: Performed By: #### L IVP, BMPX, PT, CDP ####[facility] Djy[address] [place] [address] Lab Director: Dl Jean DO MCH (RBC) [Entitic mass] 29.8 pg Normal 26-34 [facility] Comment on above: Performed By: #### L IVP, BMPX, PT, CDP ####[facility] Hzb[address], [place] [phone] Director: Dl Jean DO MCHC (RBC) [Mass/Vol] 32.0 g/dL Normal 31-37 [facility] Comment on above: Performed By: #### L IVP, BMPX, PT, CDP ####[facility] [address], [place] [phone] Director: Dl Jean DO MCV (RBC) [Entitic vol] 93.1 fL Normal 80-100 [facility] Comment on above: Performed By: #### L IVP, BMPX, PT, CDP ####[facility] Hmp4695 [facility], [place] [phone] Director: Dl Jean DO Monocytes (Bld) [#/Vol] 0.80 10*3/uL Normal 0.1-1.3 [facility] Comment on above: Performed By: #### L IVP, BMPX, PT, CDP ####[facility] Lqq[address], [place] [phone] Director: Dl Jean DO Monocytes/100 WBC (Bld) 11 % High 1-7 [facility] Comment on above: Performed By: #### L IVP, BMPX, PT, CDP ####[facility] Orv[address], [place] [phone] Director: Dl Jean DO Neutrophil (Seg) 71 % High 36-66 [facility] Comment on above: Performed By: #### L IVP, BMPX, PT, CDP ####[facility] Irc[address] [place] [address] Lab Director: Dl Jean DO Platelet mean volume (Bld) [Entitic vol] 7.4 fL Normal 6.0-12.0 [facility] Comment on above: Performed By: #### L IVP, BMPX, PT, CDP ####[facility] Zvr[address] [place] [address] Lab Director: Dl Jean DO Platelets (Bld) [#/Vol] 283 10*3/uL Normal 150-450 [facility] Comment on above: Performed By: #### L IVP, BMPX, PT, CDP ####[facility] Bvv[address], [place] [phone] Director: Dl Jean DO RBC (Bld) [#/Vol] 3.70 10*6/uL Low 4.5-5.9 [facility] Comment on above: Performed By: #### L IVP, BMPX, PT, CDP ####[facility] Aty[address] [place] [address] Lab Director: Dl Jean DO WBC (Bld) [#/Vol] 7.0 10*3/uL Normal 3.5-11.0 [facility] Comment on above: Performed By: #### L IVP, BMPX, PT, CDP ####[facility] Aem[address], [place] [phone] Director: Dl Jean DO Glucose,Whole Bloodon 2023 Glucose [Mass/Vol] 178 mg/dL High 75-110 [facility] Glucose [Mass/Vol] 191 mg/dL High 75-110 [facility] Glucose [Mass/Vol] 256 mg/dL High 75-110 [facility] Glucose [Mass/Vol] 136 mg/dL High 75-110 [facility] Glucose [Mass/Vol] 183 mg/dL High 75-110 [facility] Liver Profileon 07-20-2023 Albumin [Mass/Vol] 3.1 g/dL Low 3.5-5.2 [facility] Comment on above: Performed By: #### L IVP, BMPX, PT, CDP ####[facility] Cec7210 [facility] [place] [address] Lab Director: Dl Jean DO Alkaline Phos 126 U/L Normal 40-129 [facility] Comment on above: Performed By: #### L IVP, BMPX, PT, CDP ####[facility] Lhe8290 [facility] [place] [address] Lab Director: Dl Jean DO ALT [Catalytic activity/Vol] 73 U/L High 5-41 [facility] Comment on above: Performed By: #### L IVP, BMPX, PT, CDP ####[facility] Sco2839 [facility] [place] [address] Lab Director: Dl Jean DO AST [Catalytic activity/Vol] 56 U/L High <40 [facility] Comment on above: Performed By: #### L IVP, BMPX, PT, CDP ####[facility] Qjh4019 [facility] [place] [address] Lab Director: Dl Jean DO Bilirubin [Mass/Vol] 0.5 mg/dL Normal 0.3-1.2 [facility] Comment on above: Performed By: #### L IVP, BMPX, PT, CDP ####[facility] Swk4884 [facility] [place] [address] Lab Director: Dl Jean DO Bilirubin, Indirect 0.3 mg/dL Normal 0.0-1.0 [facility] Comment on above: Performed By: #### L IVP, BMPX, PT, CDP ####[facility] Nvw[address] [place] [address] Lab Director: Dl Jean DO Bilirubin.indirec t [Mass/Vol] 0.2 mg/dL Normal <0.3 [facility] Comment on above: Performed By: #### L IVP, BMPX, PT, CDP ####[facility] Wbq[address] [place] [address] lab Director: Dl Jean DO Protein [Mass/Vol] 5.8 g/dL Low 6.4-8.3 [facility] Comment on above: Performed By: #### L IVP, BMPX, PT, CDP ####[facility] Vyk3474 [facility] [place] [address] Lab Director: Dl Jean DO PTon 07-20-2023 INR Coag (PPP) [Relative time] 1.2 {INR} Normal [facility] Comment on above: Result Comment: Therapeutic Range: Moderate Anticoagulant Intensity: INR = 2.0-3.0 High Anticoagulant Intensity: INR = 2.5-3.5 Performed By: #### L IVP, BMPX, PT, CDP ####[facility] Gxr3584 [facility] [place] [address] Lab Director: Dl Jean DO PT Coag (PPP) [Time] 15.9 s High 11.8-14.6 [facility] Comment on above: Performed By: #### L IVP, BMPX, PT, CDP ####[facility] [address] [place] [address] lab Director: Dl Jean DO Glucose,Whole Bloodon 2023 Glucose [Mass/Vol] 254 mg/dL High 75-110 [facility] Glucose [Mass/Vol] 155 mg/dL High 75-110 [facility] PTon 07-19-2023 INR Coag (PPP) [Relative time] 1.3 {INR} Normal [facility] Comment on above: Result Comment: Therapeutic Range: Moderate Anticoagulant Intensity: INR = 2.0-3.0 High Anticoagulant Intensity: INR = 2.5-3.5 Performed By: #### P T ####[place], [place] [address])[phone] Director: Carlos Rowland MD PT Coag (PPP) [Time] 16.1 s High 11.7-14.9 [facility] Comment on above: Performed By: #### P T ####[address] [address])[phone] Director: Carlos Rowland MD Basic Metabolic Profon 07-183 Anion gap [Moles/Vol] 10 mmol/L Normal 9-17 [facility] Comment on above: Performed By: #### P T, CDP, BMP, MG, RIANNA ####[address] [address])[phone] Director: Carlos Rowland MD Calcium [Mass/Vol] 8.5 mg/dL Low 8.6-10.4 [facility] Comment on above: Performed By: #### P T, CDP, BMP, MG, RIANNA ####[address] [address])[phone] Director: Carlos Rowland MD Chloride [Moles/Vol] 104 mmol/L Normal 98-107 [facility] Comment on above: Performed By: #### P T, CDP, BMP, MG, RIANNA ####[facility] [address] [place] [address])[phone] Director: Carlos Rowland MD CO2 [Moles/Vol] 24 mmol/L Normal 20-31 [facility] Comment on above: Performed By: #### P T, CDP, BMP, MG, RIANNA ####[facility] Glhpraihspxw0686 [place] [address] Lab Director: Carlos Rowland MD Creatinine [Mass/Vol] 0.9 mg/dL Normal 0.7-1.2 [facility] Comment on above: Performed By: #### P T, CDP, BMP, MG, RIANNA ####[address] [address] Lab Director: Carlos Rowland MD GFR/1.73 sq M.predicted among non-blacks MDRD (S/P/Bld) [Vol rate/Area] mL/min/{1.73_m2} Normal >60 [facility] Comment on above: Result Comment: These [...] #### P T, CDP, BMP, MG, RIANNA ####[facility] [address] [place] [address] Lab Director: Carlos Rowland MD Glucose [Mass/Vol] 121 mg/dL High 70-99 [facility] Comment on above: Performed By: #### P T, CDP, BMP, MG, RIANNA ####[facility] [address] [place] [address] Lab Director: Carlos Rowland MD Potassium [Moles/Vol] 4.4 mmol/L Normal 3.7-5.3 [facility] Comment on above: Performed By: #### P T, CDP, BMP, MG, RIANNA ####[facility] [address]so[address] [place] [address] Lab Director: Carlos Rowland MD Sodium [Moles/Vol] 138 mmol/L Normal 135-144 [facility] Comment on above: Performed By: #### P T, CDP, BMP, MG, RIANNA ####[facility] [address] [place], [place] [address])[phone] Director: Carlos Rowland MD Urea nitrogen [Mass/Vol] 19 mg/dL Normal 8-23 [facility] Comment on above: Performed By: #### P T, CDP, BMP, MG, RIANNA ####[facility] [address] [place], [place] [address])[phone] Director: Carlos Rowland MD CBC with Diffon 07-18-2023 Abs. Basophil 0.07 k/uL Normal 0.00-0.20 [facility] Comment on above: Performed By: #### P T, CDP, BMP, MG, RIANNA ####[place], [place] [address])[phone] Director: Carlos Rowland MD Abs.Imm.Granulocy te <0.03 Normal 0.00-0.30 [facility] Comment on above: Performed By: #### P T, CDP, BMP, MG, RIANNA ####[place], [place] [address])[phone] Director: Carlos Rowland MD Abs.Neutrophil (Seg) 5.21 k/uL Normal 1.50-8.10 [facility] Comment on above: Performed By: #### P T, CDP, BMP, MG, RIANNA ####[facility] [address] [place], [place] [address])[phone] Director: Carlos Rwoland MD Basophils/100 WBC (Bld) 1 % Normal 0-2 [facility] Comment on above: Performed By: #### P T, CDP, BMP, MG, RIANNA ####[facility] [address] [place], [place] [address])[phone] Director: Carlos Rowland MD Eosinophils (Bld) [#/Vol] 0.14 10*3/uL Normal 0.00-0.44 [facility] Comment on above: Performed By: #### P T, CDP, BMP, MG, RIANNA ####[address] [phone] Director: Carlos Rowland MD Eosinophils/100 WBC (Bld) 2 % Normal 1-4 [facility] Comment on above: Performed By: #### P T, CDP, BMP, MG, RIANNA ####[address] [address])[phone] Director: Carlos Rowland MD Erythrocyte distribution width (RBC) [Ratio] 15.3 % High 11.8-14.4 [facility] Comment on above: Performed By: #### P T, CDP, BMP, MG, RIANNA ####[place], [place] [address])[phone] Director: Carlos Rowland MD Hematocrit (Bld) [Volume fraction] 31.7 % Low 40.7-50.3 [facility] Comment on above: Performed By: #### P T, CDP, BMP, MG, RIANNA ####[place], [place] [address])[phone] Director: Carlos Rowland MD Hemoglobin (Bld) [Mass/Vol] 10.4 g/dL Low 13.0-17.0 [facility] Comment on above: Performed By: #### P T, CDP, BMP, MG, RIANNA ####[facility] [address] [place] [address])[phone] Director: Carlos oRwland MD Immature granulocytes/100 WBC (Bld) 0 % Normal 0 [facility] Comment on above: Performed By: #### P T, CDP, BMP, MG, RIANNA ####[address] [address])[phone] Director: Carlos Rowland MD Lymphocytes (Bld) [#/Vol] 1.29 10*3/uL Normal 1.10-3.70 [facility] Comment on above: Performed By: #### P T, CDP, BMP, MG, RIANNA ####[facility] [address] [place], [place] [address])[phone] Director: Carlos Rowland MD Lymphocytes/100 WBC (Bld) 17 % Low 24-43 [facility] Comment on above: Performed By: #### P T, CDP, BMP, MG, RIANNA ####[facility] [address] [place], [place] [address])[phone] Director: Carlos Rowland MD MCH (RBC) [Entitic mass] 30.3 pg Normal 25.2-33.5 [facility] Comment on above: Performed By: #### P T, CDP, BMP, MG, RIANNA ####[facility] [address] [place], [place] [address])[phone] Director: Carlos Rowland MD MCHC (RBC) [Mass/Vol] 32.8 g/dL Normal 28.4-34.8 [facility] Comment on above: Performed By: #### P T, CDP, BMP, MG, RIANNA ####[facility] [address] [place], [place] [address])[phone] Director: Carlos Rowland MD MCV (RBC) [Entitic vol] 92.4 fL Normal 82.6-102.9 [facility] Comment on above: Performed By: #### P T, CDP, BMP, MG, RIANNA ####[facility] [address] [place], [place] [address])[phone] Director: Carlos Rowland MD Monocytes (Bld) [#/Vol] 0.81 10*3/uL Normal 0.10-1.20 [facility] Comment on above: Performed By: #### P T, CDP, BMP, MG, RIANNA ####[facility] S[address]ys[address]cbzun90[address] [place], [place] [phone])[phone] Director: aCrlos Rowland MD Monocytes/100 WBC (Bld) 11 % Normal 3-12 [facility] Comment on above: Performed By: #### P T, CDP, BMP, MG, RIANNA ####[facility] Teccljnwjakg9387 [place], [place] [phone] Director: Carlos Rowland MD Neutrophil (Seg) 69 % High 36-65 [facility] Comment on above: Performed By: #### P T, CDP, BMP, MG, RIANNA ####[facility] Ggxluchhmfpz1444 [place], [place] [phone])[phone] Director: Carlos Rowland MD NRBC Automated 0.0 per 100 WBC Normal 0.0 [facility] Comment on above: Performed By: #### P T, CDP, BMP, MG, RIANNA ####[facility] [address]mte[address]kqaj58[address] [place], [place] [phone] Director: Carlos Rowland MD Platelet mean volume (Bld) [Entitic vol] 9.8 fL Normal 8.1-13.5 [facility] Comment on above: Performed By: #### P T, CDP, BMP, MG, RIANNA ####[facility] [address]ekyazpkypfk8793 [place], [place] [phone] Director: Carlos Rowland MD Platelets (Bld) [#/Vol] 238 10*3/uL Normal 138-453 [facility] Comment on above: Performed By: #### P T, CDP, BMP, MG, RIANNA ####[facility] [address] [place], [place] [phone] Director: Carlos Rowland MD RBC (Bld) [#/Vol] 3.43 10*6/uL Low 4.21-5.77 [facility] Comment on above: Performed By: #### P T, CDP, BMP, MG, RIANNA ####[facility] [address] [place] [address] Lab Director: Carlos Rowland MD RBC morphology finding Nom (Bld) ANISOCYTOSIS PRESENT Normal [facility] Comment on above: Performed By: #### P T, CDP, BMP, MG, RIANNA ####[facility] [address]tjhekib8027 [place] [address] lab Director: Carlos Rowland MD WBC (Bld) [#/Vol] 7.5 10*3/uL Normal 3.5-11.3 [facility] Comment on above: Performed By: #### P T, CDP, BMP, MG, RIANNA ####[facility] Y[address]ir[address] [place] [address] lab Director: Carlos Rowland MD Cult,Bloodon 07-18-2023 Cult,Blood Specimen Description .BLOOD Special Requests RT HAND 1 ML Culture NO GROWTH 5 DAYS Report Status FINAL 07/18/2023 Normal [facility] Comment on above: Performed By: #### B C ####[facility] [address]mo[address]50 [place] [address] lab Director: Carlos Rowland MD Cult,Blood Specimen Description .BLOOD Special Requests LEFT HAND 1 ML Culture NO GROWTH 5 DAYS Report Status FINAL 07/18/2023 Normal [facility] Comment on above: Performed By: #### B C ####[facility] [address] [place] [address] Lab Director: Carlos Rowland MD Glucose,Whole Bloodon 2023 Glucose [Mass/Vol] 255 mg/dL High 75-110 [facility] Glucose [Mass/Vol] 311 mg/dL High 75-110 [facility] Glucose [Mass/Vol] 142 mg/dL High 75-110 [facility] Glucose [Mass/Vol] 312 mg/dL High 75-110 [facility] Glucose [Mass/Vol] 178 mg/dL High 75-110 [facility] Glucose [Mass/Vol] 167 mg/dL High 75-110 [facility] Magnesiumon 07-18-2023 Magnesium [Mass/Vol] 1.9 mg/dL Normal 1.6-2.6 [facility] Comment on above: Performed By: #### P T, CDP, BMP, MG, RIANNA ####[facility] S[address]39 [place] [address] Lab Director: Carlos Rowland MD PTon 07-18-2023 INR Coag (PPP) [Relative time] 1.3 {INR} Normal [facility] Comment on above: Result Comment: Therapeutic Range: Moderate Anticoagulant Intensity: INR = 2.0-3.0 High Anticoagulant Intensity: INR = 2.5-3.5 Performed By: #### P T, CDP, BMP, MG, RIANNA ####[facility] [address] [place] [address] Lab Director: Carlos Rowland MD PT Coag (PPP) [Time] 15.8 s High 11.7-14.9 [facility] Comment on above: Performed By: #### P T, CDP, BMP, MG, RIANNA ####[facility] [address] [place] [address] Lab Director: Carlso Rowland MD Phosphorus, Inorg.on 024 Phosphorus, Inorg. 3.6 mg/dL Normal 2.5-4.5 [facility] Comment on above: Performed By: #### P T, CDP, BMP, MG, RIANNA ####[facility] [address] [place] [address] Lab Director: Carlos Rowland MD Basic Metabolic Profon 07-17 Anion gap [Moles/Vol] 8 mmol/L Low - [facility] Comment on above: Performed By: #### C DP, BMP, MG, RIANNA, PT ####[facility] [address] [place] [address] Lab Director: Carlos Rowland MD Calcium [Mass/Vol] 8.6 mg/dL Normal 8.6-10.4 [facility] Comment on above: Performed By: #### C DP, BMP, MG, RIANNA, PT ####[facility] [address]qu[address]seldmx60[address] [place], [place] [phone] Director: Carlos Rowland MD Chloride [Moles/Vol] 102 mmol/L Normal 98-107 [facility] Comment on above: Performed By: #### C DP, BMP, MG, RIANNA, PT ####[facility] F[address] [place], [place] [phone])[phone] Director: Carlos Rowland MD CO2 [Moles/Vol] 23 mmol/L Normal 20-31 [facility] Comment on above: Performed By: #### C DP, BMP, MG, RIANNA, PT ####[address] [address] Lab Director: Carlos Rowland MD Creatinine [Mass/Vol] 0.9 mg/dL Normal 0.7-1.2 [facility] Comment on above: Performed By: #### C DP, BMP, MG, RIANNA, PT ####[address] [id number])[phone] Director: Carlos Rowland MD GFR/1.73 sq M.predicted among non-blacks MDRD (S/P/Bld) [Vol rate/Area] mL/min/{1.73_m2} Normal >60 [facility] Comment on above: Result Comment: These [...] #### C DP, BMP, MG, RIANNA, PT ####[facility] [address] Lab Director: Carlos Rowland MD Glucose [Mass/Vol] 169 mg/dL High 70-99 [facility] Comment on above: Performed By: #### C DP, BMP, MG, RIANNA, PT ####[address] [address] Lab Director: Carlos Rowland MD Potassium [Moles/Vol] 4.8 mmol/L Normal 3.7-5.3 [facility] Comment on above: Performed By: #### C DP, BMP, MG, RIANNA, PT ####[address] [address])[phone] Director: Carlos Rowland MD Sodium [Moles/Vol] 133 mmol/L Low 135-144 [facility] Comment on above: Performed By: #### C DP, BMP, MG, RIANNA, PT ####[address] [address])[phone] Director: Carlos Rowland MD Urea nitrogen [Mass/Vol] 22 mg/dL Normal 8-23 [facility] Comment on above: Performed By: #### C DP, BMP, MG, RIANNA, PT ####[address] [address])[phone] Director: Carlos Rowland MD CBC with Diffon 07-17-2023 Abs. Basophil 0.09 k/uL Normal 0.00-0.20 [facility] Comment on above: Performed By: #### C DP, BMP, MG, RIANNA, PT ####[facility] [address] [place] [address])[phone] Director: Carlos Rowland MD Abs.Imm.Granulocy te 0.04 k/uL Normal 0.00-0.30 [facility] Comment on above: Performed By: #### C DP, BMP, MG, RIANNA, PT ####[facility] Rhftacierrgc5146 [place], [place] [address])[phone] Director: Carlos Rowland MD Abs.Neutrophil (Seg) 5.58 k/uL Normal 1.50-8.10 [facility] Comment on above: Performed By: #### C DP, BMP, MG, RIANNA, PT ####[facility] [address] [place], [place] [address])[phone] Director: Carlos Rowland MD Basophils/100 WBC (Bld) 1 % Normal 0-2 [facility] Comment on above: Performed By: #### C DP, BMP, MG, RIANNA, PT ####[facility] HospitalOmbitronCdjytmwjwfyn[address] [place], [place] [address])[phone] Director: Carlos Rowland MD Eosinophils (Bld) [#/Vol] 0.16 10*3/uL Normal 0.00-0.44 [facility] Comment on above: Performed By: #### C DP, BMP, MG, RIANNA, PT ####[facility] HospitalME911 [address] [place], [place] [address])[phone] Director: Carlos Rowland MD Eosinophils/100 WBC (Bld) 2 % Normal 1-4 [facility] Comment on above: Performed By: #### C DP, BMP, MG, RIANNA, PT ####[facility] HospitalOmbitronSbrtzhpguseg07[address] [place], [place] [address])[phone] Director: Carlos Rowland MD Erythrocyte distribution width (RBC) [Ratio] 15.3 % High 11.8-14.4 [facility] Comment on above: Performed By: #### C DP, BMP, MG, RIANNA, PT ####[facility]911 Bqxvmilnjnjh5668 [place], [place] [address])[phone] Director: Carlos Rowland MD Hematocrit (Bld) [Volume fraction] 35.8 % Low 40.7-50.3 [facility] Comment on above: Performed By: #### C DP, BMP, MG, RIANNA, PT ####[facility] Pmshlpiqrzyc8468 [place], [place] [address])[phone] Director: Carlos Rowland MD Hemoglobin (Bld) [Mass/Vol] 11.2 g/dL Low 13.0-17.0 [facility] Comment on above: Performed By: #### C DP, BMP, MG, RIANNA, PT ####[facility] Azuzks[address]df7470 [place], [place] [address])[phone] Director: Carlos Rowland MD Immature granulocytes/100 WBC (Bld) 1 % High 0 [facility] Comment on above: Performed By: #### C DP, BMP, MG, RIANNA, PT ####[facility] Nmscdrrwntsb0953 [place], [place] [address])[phone] Director: Carlos Rowland MD Lymphocytes (Bld) [#/Vol] 1.11 10*3/uL Normal 1.10-3.70 [facility] Comment on above: Performed By: #### C DP, BMP, MG, RIANNA, PT ####[facility] [address] [place], [place] [address])[phone] Director: Carlos Rowland MD Lymphocytes/100 WBC (Bld) 14 % Low 24-43 [facility] Comment on above: Performed By: #### C DP, BMP, MG, RIANNA, PT ####[facility] Dcaadwx[address]iefm[address]76 [place], [place] [address])[phone] Director: Carlos Rowland MD MCH (RBC) [Entitic mass] 29.4 pg Normal 25.2-33.5 [facility] Comment on above: Performed By: #### C DP, BMP, MG, RIANNA, PT ####[facility] Pedhuym[address]jtp13[address] [place], [place] [address])[phone] Director: Carlos Rowland MD MCHC (RBC) [Mass/Vol] 31.3 g/dL Normal 28.4-34.8 [facility] Comment on above: Performed By: #### C DP, BMP, MG, RIANNA, PT ####[facility] X[address] [place], [place] [address])[phone] Director: Carlos Rowland MD MCV (RBC) [Entitic vol] 94.0 fL Normal 82.6-102.9 [facility] Comment on above: Performed By: #### C DP, BMP, MG, RIANNA, PT ####[facility] [address] [place], [place] [address])[phone] Director: Carlos Rowland MD Monocytes (Bld) [#/Vol] 0.74 10*3/uL Normal 0.10-1.20 [facility] Comment on above: Performed By: #### C DP, BMP, MG, RIANNA, PT ####[place], [place] [address])[phone] Director: Carlos Rowland MD Monocytes/100 WBC (Bld) 10 % Normal 3-12 [facility] Comment on above: Performed By: #### C DP, BMP, MG, RIANNA, PT ####[place], [place] [address])[phone] Director: Carlos Rowland MD Neutrophil (Seg) 72 % High 36-65 [facility] Comment on above: Performed By: #### C DP, BMP, MG, RIANNA, PT ####[place], [place] [address])[phone] Director: Carlos Rowland MD NRBC Automated 0.0 per 100 WBC Normal 0.0 [facility] Comment on above: Performed By: #### C DP, BMP, MG, RIANNA, PT ####[place], [place] [address])[phone] Director: Carlos Rowland MD Platelet mean volume (Bld) [Entitic vol] 9.7 fL Normal 8.1-13.5 [facility] Comment on above: Performed By: #### C DP, BMP, MG, RIANNA, PT ####[facility] Bvmtvenlfnup1611 [place], [place] 19071419)[phone] Director: Carlos Rowland MD Platelets (Bld) [#/Vol] 235 10*3/uL Normal 138-453 [facility] Comment on above: Performed By: #### C DP, BMP, MG, RIANNA, PT ####[facility] Rsismbdxldye6507 [place], [place] [address])[phone] Director: Carlos Rowland MD RBC (Bld) [#/Vol] 3.81 10*6/uL Low 4.21-5.77 [facility] Comment on above: Performed By: #### C DP, BMP, MG, RIANNA, PT ####[facility] Ywqhhrjbsguk0630 [place], [place] 97[address]6419)[phone] Director: Carlos Rowland MD RBC morphology finding Nom (Bld) ANISOCYTOSIS PRESENT Normal [facility] Comment on above: Performed By: #### C DP, BMP, MG, RIANNA, PT ####[facility] Bak[address]bvthee[address] [place], [place] [address]19)[phone] Director: Calros Rowland MD WBC (Bld) [#/Vol] 7.7 10*3/uL Normal 3.5-11.3 [facility] Comment on above: Performed By: #### C DP, BMP, MG, RIANNA, PT ####[facility] Sxmykmvqczbt3860 [place], [place] 83[address]7419)[phone] Director: Carlos Rowland MD Glucose,Whole Bloodon 2023 Glucose [Mass/Vol] 251 mg/dL High 75-110 [facility] Glucose [Mass/Vol] 185 mg/dL High 75-110 [facility] Glucose [Mass/Vol] 293 mg/dL High 75-110 [facility] Magnesiumon 07-17-2023 Magnesium [Mass/Vol] 1.9 mg/dL Normal 1.6-2.6 [facility] Comment on above: Performed By: #### C DP, BMP, MG, RIANNA, PT ####[facility] [address]vjtrnpkdnul9732 [place] [address] Lab Director: Carlos Rowland MD PTon 07-17-2023 INR Coag (PPP) [Relative time] 1.2 {INR} Normal [facility] Comment on above: Result Comment: Therapeutic Range: Moderate Anticoagulant Intensity: INR = 2.0-3.0 High Anticoagulant Intensity: INR = 2.5-3.5 Performed By: #### C DP, BMP, MG, RIANNA, PT ####[facility] HospitalOmbitronNvsqqqcxddkr4581 [place], [place] [address])[phone] Director: Carlos Rowland MD PT Coag (PPP) [Time] 14.9 s Normal 11.7-14.9 [facility] Comment on above: Performed By: #### C DP, BMP, MG, RIANNA, PT ####[facility]911 [address] [place], [place] [address])[phone] Director: Carlos Rowland MD Phosphorus, Inorg.on 024 Phosphorus, Inorg. 3.1 mg/dL Normal 2.5-4.5 [facility] Comment on above: Performed By: #### C DP, BMP, MG, RIANNA, PT ####[facility] HospitalOmbitronRqhewsxgdsvr7255 [place], [place] [address])[phone] Director: Carlos Rowland MD Basic Metabolic Profon 07-16 Anion gap [Moles/Vol] 11 mmol/L Normal 9-17 [facility] Comment on above: Performed By: #### LUZ MARIA MERCHANT #### [facility] [address] [place] [address] Lens Examiner: Carlos Rowland MD Calcium [Mass/Vol] 8.3 mg/dL Low 8.6-10.4 [facility] Comment on above: Performed By: #### LUZ MARIA MERCHANT #### [facility] [address] [place] [address] Lens Examiner: Carlos Rowland MD Chloride [Moles/Vol] 103 mmol/L Normal 98-107 [facility] Comment on above: Performed By: #### U AX UMICAO #### [facility] [address] [place] [address] Lens Examiner: Carlos Rowland MD CO2 [Moles/Vol] 22 mmol/L Normal 20-31 [facility] Comment on above: Performed By: #### U AX UMICAO #### [facility] [address] [place] [address] Lens Examiner: Carlos Rowland MD Creatinine [Mass/Vol] 1.0 mg/dL Normal 0.7-1.2 [facility] Comment on above: Performed By: #### U AXJAMMIEO #### [facility] [employer] [address] [place] [address] Lens Examiner: Carlos Rowland MD GFR/1.73 sq M.predicted among non-blacks MDRD (S/P/Bld) [Vol rate/Area] mL/min/{1.73_m2} Normal >60 [facility] Comment on above: Result Comment: These [...] secretion. Performed By: #### U AXJUSTINAICAO #### [facility] Hospital[facility]mbitron [address] [place] [address] Lens Examiner: Carlos Rowland MD Glucose [Mass/Vol] 160 mg/dL High 70-99 [facility] Comment on above: Performed By: #### U AXJAMMIEO #### [facility] [place] [address] Lens Examiner: Carlos Rowland MD Potassium [Moles/Vol] 4.3 mmol/L Normal 3.7-5.3 [facility] Comment on above: Performed By: #### U AX UMICAO #### [address] [address] Lens Examiner: Carlos Rowland MD Sodium [Moles/Vol] 136 mmol/L Normal 135-144 [facility] Comment on above: Performed By: #### U AX UMICAO #### [facility] [employer] [address] [place] [address] Lens Examiner: Carlos Rowland MD Urea nitrogen [Mass/Vol] 23 mg/dL Normal 8-23 [facility] Comment on above: Performed By: #### U JUSTINA MCQUEENICAO #### [facility] [employer] [address] [place] [address] Lens Examiner: Carlos Rowland MD CBC with Diffon 07-16-2023 Abs. Basophil 0.07 k/uL Normal 0.00-0.20 [facility] Comment on above: Performed By: #### U AX UMICAO #### [facility] [employer] [address] [place] [address] Lens Examiner: Carlos Rowland MD Abs.Imm.Granulocy te 0.04 k/uL Normal 0.00-0.30 [facility] Comment on above: Performed By: #### U AX UMICAO #### [facility] [employer] [address] [place] [address] Lens Examiner: Carlos Rowland MD Abs.Neutrophil (Seg) 7.16 k/uL Normal 1.50-8.10 [facility] Comment on above: Performed By: #### U AX UMICAO #### [facility] [employer] [address] [place] [address] Lens Examiner: Carlos Rowland MD Basophils/100 WBC (Bld) 1 % Normal 0-2 [facility] Comment on above: Performed By: #### U AX, UMICAO #### [facility] [address] [place] [address] Lens Examiner: Carlos Rowland MD Eosinophils (Bld) [#/Vol] 0.19 10*3/uL Normal 0.00-0.44 [facility] Comment on above: Performed By: #### U AX, UMICAO #### [address] [address] Lens Examiner: Carlos Rowland MD Eosinophils/100 WBC (Bld) 2 % Normal 1-4 [facility] Comment on above: Performed By: #### U AX, UMICAO #### [facility] [employer] [address] [place] [address] Lens Examiner: Carlos Rowland MD Erythrocyte distribution width (RBC) [Ratio] 15.2 % High 11.8-14.4 [facility] Comment on above: Performed By: #### U AX, UMICAO #### [facility] [employer] [address] [place] [address] Lens Examiner: Carlos Rowland MD Hematocrit (Bld) [Volume fraction] 35.9 % Low 40.7-50.3 [facility] Comment on above: Performed By: #### U AX, UMICAO #### [facility] [address] [place] [address] Lens Examiner: Carlos Rowland MD Hemoglobin (Bld) [Mass/Vol] 11.2 g/dL Low 13.0-17.0 [facility] Comment on above: Performed By: #### U AX, UMICAO #### [facility] [employer] [address] [place] [address] Lens Examiner: Carlos Rowland MD Immature granulocytes/100 WBC (Bld) 0 % Normal 0 [facility] Comment on above: Performed By: #### U AXLUZ MARIA #### [address] [address] Lens Examiner: Carlos Rowland MD Lymphocytes (Bld) [#/Vol] 1.36 10*3/uL Normal 1.10-3.70 [facility] Comment on above: Performed By: #### U AXJAMMIEO #### [facility] [employer] [address] [place] [address] Lens Examiner: Carlos Rowland MD Lymphocytes/100 WBC (Bld) 14 % Low 24-43 [facility] Comment on above: Performed By: #### U AXJUSTINAICAO #### [address] [address] Lens Examiner: Carlos Rowland MD MCH (RBC) [Entitic mass] 29.9 pg Normal 25.2-33.5 [facility] Comment on above: Performed By: #### U AXLUZ MARIA #### [facility] [employer] [address] [place] [address] Lens Examiner: Carlos Rowland MD MCHC (RBC) [Mass/Vol] 31.2 g/dL Normal 28.4-34.8 [facility] Comment on above: Performed By: #### U AXJUSTINAICAO #### [facility] [employer] [address] [place] [address] Lens Examiner: Carlos Rowland MD MCV (RBC) [Entitic vol] 96.0 fL Normal 82.6-102.9 [facility] Comment on above: Performed By: #### U AX UMICAO #### [facility] [employer] [address] [place] [address] Lens Examiner: Carlos Rowland MD Monocytes (Bld) [#/Vol] 0.92 10*3/uL Normal 0.10-1.20 [facility] Comment on above: Performed By: #### U AX, UMICAO #### [address] [address] Lens Examiner: Carlos Rowland MD Monocytes/100 WBC (Bld) 9 % Normal 3-12 [facility] Comment on above: Performed By: #### U AX UMICAO #### [address] [address] Lens Examiner: Carlos Rowland MD Neutrophil (Seg) 74 % High 36-65 [facility] Comment on above: Performed By: #### U AX UMICAO #### [address] [address] Lens Examiner: Carlos Rowland MD NRBC Automated 0.0 per 100 WBC Normal 0.0 [facility] Comment on above: Performed By: #### U AX UMICAO #### [address] [address] Lens Examiner: Carlos Rowland MD Platelet mean volume (Bld) [Entitic vol] 9.9 fL Normal 8.1-13.5 [facility] Comment on above: Performed By: #### U AXJUSTINAICAO #### [address] [address] Lens Examiner: Carlos Rowland MD Platelets (Bld) [#/Vol] 223 10*3/uL Normal 138-453 [facility] Comment on above: Performed By: #### U AX UMICAO #### [address] [address] Lens Examiner: Carlos Rowland MD RBC (Bld) [#/Vol] 3.74 10*6/uL Low 4.21-5.77 [facility] Comment on above: Performed By: #### U AXJAMMIEO #### [facility] [address] [place] [address] Lens Examiner: Carlos Rowland MD RBC morphology finding Nom (Bld) ANISOCYTOSIS PRESENT Normal [facility] Comment on above: Performed By: #### U AX UMICAO #### [facility] [address] [place] [address] Lens Examiner: Carlos Rowland MD WBC (Bld) [#/Vol] 9.7 10*3/uL Normal 3.5-11.3 [facility] Comment on above: Performed By: #### U AXJAMMIEO #### [facility] [employer] [address] [place] [address] Lens Examiner: Carlos Rowland MD Glucose,Whole Bloodon 2023 Glucose [Mass/Vol] 220 mg/dL High 75-110 [facility] Glucose [Mass/Vol] 156 mg/dL High 75-110 [facility] Glucose [Mass/Vol] 267 mg/dL High 75-110 [facility] Glucose [Mass/Vol] 167 mg/dL High 75-110 [facility] Magnesiumon 07-16-2023 Magnesium [Mass/Vol] 2.0 mg/dL Normal 1.6-2.6 [facility] Comment on above: Performed By: #### U AXJUSTINAICAO #### [facility] [address] [place] [address] Lens Examiner: Carlos Rowland MD PTon 07-16-2023 INR Coag (PPP) [Relative time] 1.3 {INR} Normal [facility] Comment on above: Result Comment: Therapeutic Range: Moderate Anticoagulant Intensity: INR = 2.0-3.0 High Anticoagulant Intensity: INR = 2.5-3.5 Performed By: #### U AX UMICAO #### [facility] [employer] [address] [place] [address] Lens Examiner: Carlos Rowland MD PT Coag (PPP) [Time] 15.9 s High 11.7-14.9 [facility] Comment on above: Performed By: #### U LUZ MARIA MCQUEEN #### [facility] [address] [place] [address] Lens Examiner: Carlos Rowland MD Phosphorus, Inorg.on 024 Phosphorus, Inorg. 3.3 mg/dL Normal 2.5-4.5 [facility] Comment on above: Performed By: #### LUZ MARIA MERCHANT #### [facility] [address] [place] [address] Lens Examiner: Carlos Rowland MD Basic Metabolic Profon 07-15 Anion gap [Moles/Vol] 12 mmol/L Normal 9-17 [facility] Comment on above: Performed By: #### M G, CDP, BMP, RIANNA ####[facility] [address]agwi[address] [place] [address] Lab Director: Carlos Rowland MD Calcium [Mass/Vol] 8.5 mg/dL Low 8.6-10.4 [facility] Comment on above: Performed By: #### M G, CDP, BMP, RIANNA ####[facility] [address]xtdqtlu8[address] [place] [address] Lab Director: Carlos Rowland MD Chloride [Moles/Vol] 102 mmol/L Normal 98-107 [facility] Comment on above: Performed By: #### M G, CDP, BMP, RIANNA ####[facility] [address]zg[address] [place] [address] Lab Director: Carlos Rowland MD CO2 [Moles/Vol] 19 mmol/L Low 20-31 [facility] Comment on above: Performed By: #### M G, CDP, BMP, RIANNA ####[facility] [address]jelr60[address] [place] [address] Lab Director: Carlos Rowland MD Creatinine [Mass/Vol] 1.1 mg/dL Normal 0.7-1.2 [facility] Comment on above: Performed By: #### M G, CDP, BMP, RIANNA ####[facility] [address]oz[address] [place] [address] Lab Director: Carlos Rowland MD GFR/1.73 sq M.predicted among non-blacks MDRD (S/P/Bld) [Vol rate/Area] mL/min/{1.73_m2} Normal >60 [facility] Comment on above: Result Comment: These [...] #### M G, CDP, BMP, RIANNA ####[facility] [address]krkm[address] [place] [address] Lab Director: Carlos Rowland MD Glucose [Mass/Vol] 154 mg/dL High 70-99 [facility] Comment on above: Performed By: #### M G, CDP, BMP, RIANNA ####[facility] [address]th[address] [place] [address] Lab Director: Carlos Rowland MD Potassium [Moles/Vol] 4.3 mmol/L Normal 3.7-5.3 [facility] Comment on above: Performed By: #### M G, CDP, BMP, RIANNA ####[facility] [address]35[address] [place] [address] Lab Director: Carlos Rowland MD Sodium [Moles/Vol] 133 mmol/L Low 135-144 [facility] Comment on above: Performed By: #### M G, CDP, BMP, RIANNA ####[facility] [address]jts[address]75[address] [place], [place] [address])[phone] Director: Carlos Rowland MD Urea nitrogen [Mass/Vol] 27 mg/dL High - [facility] Comment on above: Performed By: #### M G, CDP, BMP, RIANNA ####[facility] [address]fl[address] [place], [place] [address])[phone] Director: Carlos Rowland MD CBC with Diffon 07-15-2023 Abs. Basophil 0.06 k/uL Normal 0.00-0.20 [facility] Comment on above: Performed By: #### M G, CDP, BMP, RIANNA ####[facility] [address] [place], [place] [address])[phone] Director: Carlos Rowland MD Abs.Imm.Granulocy te 0.04 k/uL Normal 0.00-0.30 [facility] Comment on above: Performed By: #### M G, CDP, BMP, RIANNA ####[facility] [address]opf[address]wg[address] [place], [place] [address])[phone] Director: Carlos Rowland MD Abs.Neutrophil (Seg) 6.54 k/uL Normal 1.50-8.10 [facility] Comment on above: Performed By: #### M G, CDP, BMP, RIANNA ####[facility] [address]ucgscsegx3336 [place], [place] [address])[phone] Director: Carlos Rowland MD Basophils/100 WBC (Bld) 1 % Normal 0-2 [facility] Comment on above: Performed By: #### M G, CDP, BMP, RIANNA ####[facility] [address]kmm5[address] [place], [place] [address])[phone] Director: Carlos Rowland MD Eosinophils (Bld) [#/Vol] 0.26 10*3/uL Normal 0.00-0.44 [facility] Comment on above: Performed By: #### M G, CDP, BMP, RIANNA ####[facility] [address] [place], [place] [phone] Director: Carlos Rowland MD Eosinophils/100 WBC (Bld) 3 % Normal 1-4 [facility] Comment on above: Performed By: #### M G, CDP, BMP, RIANNA ####[facility] [address]ogcbfxzcbx5[address] [place], [place] 76441419)[phone] Director: Carlos Rowland MD Erythrocyte distribution width (RBC) [Ratio] 15.2 % High 11.8-14.4 [facility] Comment on above: Performed By: #### M G, CDP, BMP, RIANNA ####[facility] [address]im[address] [place], [place] [address])[phone] Director: Carlos Rowland MD Hematocrit (Bld) [Volume fraction] 39.1 % Low 40.7-50.3 [facility] Comment on above: Performed By: #### M G, CDP, BMP, RIANNA ####[facility] Pkcfidwugrve4752 [place], [place] [address])[phone] Director: Carlos Rowland MD Hemoglobin (Bld) [Mass/Vol] 11.9 g/dL Low 13.0-17.0 [facility] Comment on above: Performed By: #### M G, CDP, BMP, RIANNA ####[facility] [address]rbjovyn6[address] [place], [place] [address])[phone] Director: Carlos Rowland MD Immature granulocytes/100 WBC (Bld) 0 % Normal 0 [facility] Comment on above: Performed By: #### M G, CDP, BMP, RIANNA ####[facility] [address]az[address]uepu1451 [place], [place] [address])[phone] Director: Carlos Rowland MD Lymphocytes (Bld) [#/Vol] 1.23 10*3/uL Normal 1.10-3.70 [facility] Comment on above: Performed By: #### M G, CDP, BMP, RIANNA ####[facility] [address]zz[address]xfev3513 [place], [place] [address])[phone] Director: Carlos Rowland MD Lymphocytes/100 WBC (Bld) 14 % Low 24-43 [facility] Comment on above: Performed By: #### M G, CDP, BMP, RIANNA ####[facility] [address]opdx54[address] [place], [place] [address])[phone] Director: Carlos Rowland MD MCH (RBC) [Entitic mass] 29.5 pg Normal 25.2-33.5 [facility] Comment on above: Performed By: #### M G, CDP, BMP, RIANNA ####[facility] [address] [place], [place] [address])[phone] Director: Carlos Rowland MD MCHC (RBC) [Mass/Vol] 30.4 g/dL Normal 28.4-34.8 [facility] Comment on above: Performed By: #### M G, CDP, BMP, RIANNA ####[facility] [facility] [address] [place] [address])[phone] Director: Carlos Rowland MD MCV (RBC) [Entitic vol] 97.0 fL Normal 82.6-102.9 [facility] Comment on above: Performed By: #### M G, CDP, BMP, RIANNA ####[address] [address])[phone] Director: Carlos Rowland MD Monocytes (Bld) [#/Vol] 0.85 10*3/uL Normal 0.10-1.20 [facility] Comment on above: Performed By: #### M G, CDP, BMP, RIANNA ####[facility] [address] [place] [address])[phone] Director: Carlos Rowland MD Monocytes/100 WBC (Bld) 10 % Normal 3-12 [facility] Comment on above: Performed By: #### M G, CDP, BMP, RIANNA ####[facility] Dhxghiwtvyzi5178 [place] [address] Lab Director: Carlos Rowland MD Neutrophil (Seg) 72 % High 36-65 [facility] Comment on above: Performed By: #### M G, CDP, BMP, RIANNA ####[facility] [address]ucxxjxcocp0621 [place] [address] Lab Director: Carlos Rowland MD NRBC Automated 0.0 per 100 WBC Normal 0.0 [facility] Comment on above: Performed By: #### M G, CDP, BMP, RIANNA ####[facility] X[address]ppxf[address]0570 [place] [address] Lab Director: Carlos Rowland MD Platelet mean volume (Bld) [Entitic vol] 9.9 fL Normal 8.1-13.5 [facility] Comment on above: Performed By: #### M G, CDP, BMP, RIANNA ####[facility] [address] [place] [address] Lab Director: Carlos Rowland MD Platelets (Bld) [#/Vol] 206 10*3/uL Normal 138-453 [facility] Comment on above: Performed By: #### M G, CDP, BMP, RIANNA ####[facility] K[address]vo[address]copjv7774 [place] [address] Lab Director: Carlos Rowland MD RBC (Bld) [#/Vol] 4.03 10*6/uL Low 4.21-5.77 [facility] Comment on above: Performed By: #### M G, CDP, BMP, RIANNA ####[facility] X[address]3560 [place] [address] Lab Director: Carlos Rowland MD RBC morphology finding Nom (Bld) ANISOCYTOSIS PRESENT Normal [facility] Comment on above: Performed By: #### M G, CDP, BMP, RIANNA ####[facility] [address]selubolnp9107 [place], [place] [id number] Lab Director: Carlos Rowland MD WBC (Bld) [#/Vol] 9.0 10*3/uL Normal 3.5-11.3 [facility] Comment on above: Performed By: #### M MAHOGANY Chen, BMP, RIANNA ####[facility] [address]kegm8417 [place], [place] [phone] lab Director: Carlos Rowland MD Glucose,Whole Bloodon 2023 Glucose [Mass/Vol] 175 mg/dL High 75-110 [facility] Glucose [Mass/Vol] 169 mg/dL High 75-110 [facility] Glucose [Mass/Vol] 273 mg/dL High 75-110 [facility] Glucose [Mass/Vol] 157 mg/dL High 75-110 [facility] Magnesiumon 07-15-2023 Magnesium [Mass/Vol] 2.2 mg/dL Normal 1.6-2.6 [facility] Comment on above: Performed By: #### M MAHOGANY Chen, BMP, RIANNA ####[facility] [address]qprnmff[address] [place], [place] [phone] lab Director: Carlos Rowland MD PTon 07-15-2023 INR Coag (PPP) [Relative time] 1.4 {INR} Normal [facility] Comment on above: Result Comment: Therapeutic Range: Moderate Anticoagulant Intensity: INR = 2.0-3.0 High Anticoagulant Intensity: INR = 2.5-3.5 Performed By: #### P T ####[facility] [address]wsftxxdt7775 [place] [address] Lab Director: Carlos Rowland MD PT Coag (PPP) [Time] 16.5 s High 11.7-14.9 [facility] Comment on above: Performed By: #### P T ####[facility] [address]xiatkhvv8301 [place] [address] lab Director: Carlos Rowland MD Phosphorus, Inorg.on 024 Phosphorus, Inorg. 3.8 mg/dL Normal 2.5-4.5 [facility] Comment on above: Performed By: #### M G, CDP, BMP, RIANNA ####[facility] Reyiqfjbsjkn5073 [place] [address] Lab Director: Carlos Rowland MD Basic Metabolic Profon 07-14 Anion gap [Moles/Vol] 10 mmol/L Normal 9-17 [facility] Comment on above: Performed By: #### B MP, CDP, MG, RIANNA ####[facility] [address]tukskwfsvii6701 [place] [address] Lab Director: Carlos Rowland MD Calcium [Mass/Vol] 8.5 mg/dL Low 8.6-10.4 [facility] Comment on above: Performed By: #### B MP, CDP, MG, RIANNA ####[facility] Qqpafqncywif8591 [place] [address] Lab Director: Carlos Rowland MD Chloride [Moles/Vol] 103 mmol/L Normal 98-107 [facility] Comment on above: Performed By: #### B MP, CDP, MG, RIANNA ####[facility] Xdigjyfwvzge4887 [place] [address] Lab Director: Carlos Rowland MD CO2 [Moles/Vol] 23 mmol/L Normal 20-31 [facility] Comment on above: Performed By: #### B MP, CDP, MG, RIANNA ####[facility] Qrxmelckzvwr5188 [place] [address] Lab Director: Carlos Rowland MD Creatinine [Mass/Vol] 1.0 mg/dL Normal 0.7-1.2 [facility] Comment on above: Performed By: #### B MP, CDP, MG, RIANNA ####[facility] Bfyzbtjdogez4497 [place], [place] [phone] Director: Carlos Rowland MD GFR/1.73 sq M.predicted among non-blacks MDRD (S/P/Bld) [Vol rate/Area] mL/min/{1.73_m2} Normal >60 [facility] Comment on above: Result Comment: These [...] #### B MP, CDP, MG, RIANNA ####[facility] Sjgwfeghqgxm5267 [place], [place] [address])[phone] Director: Carlos Rowland MD Glucose [Mass/Vol] 154 mg/dL High 70-99 [facility] Comment on above: Performed By: #### B MP, CDP, MG, RIANNA ####[facility] [address]awrlfucrvah5430 [place], [place] [address])[phone] Director: Carlos Rowland MD Potassium [Moles/Vol] 3.9 mmol/L Normal 3.7-5.3 [facility] Comment on above: Performed By: #### B MP, CDP, MG, RIANNA ####[facility] Mkncbgtsldwp4696 [place], [place] [phone] Director: Carlos Rowland MD Sodium [Moles/Vol] 136 mmol/L Normal 135-144 [facility] Comment on above: Performed By: #### B MP, CDP, MG, RIANNA ####[facility] Gifwnxpqmiuy2165 [place], [place] [phone] Director: Carlos Rowland MD Urea nitrogen [Mass/Vol] 24 mg/dL High 8-23 [facility] Comment on above: Performed By: #### B MP, CDP, MG, RIANNA ####[facility] Fhuuidy[address]uty5675 [place], [place] [phone] Director: Carlos Rowland MD CBC with Diffon 02-22-2024 Abs. Basophil 0.03 k/uL Normal 0.00-0.20 [facility] Comment on above: Performed By: #### B MP, CDP, MG, RIANNA ####[facility] Fdhihrvllnfx6753 [place], [place] [address])[phone] Director: Carlos Rowland MD Abs.Imm.Granulocy te 0.08 k/uL Normal 0.00-0.30 [facility] Comment on above: Performed By: #### B MP, CDP, MG, RIANNA ####[facility] Wfgtkdwynwfk9891 [place], [place] [address])[phone] Director: Carlos Rowland MD Abs.Neutrophil (Seg) 10.21 k/uL High 1.50-8.10 [facility] Comment on above: Performed By: #### B MP, CDP, MG, RIANNA ####[facility] [address] [place] [address])[phone] Director: Carlos Rowland MD Basophils/100 WBC (Bld) 0 % Normal 0-2 [facility] Comment on above: Performed By: #### B MP, CDP, MG, RIANNA ####[facility] Fetgjoqmvsku6081 [place], [place] [address])[phone] Director: Carlos Rowland MD Eosinophils (Bld) [#/Vol] 0.12 10*3/uL Normal 0.00-0.44 [facility] Comment on above: Performed By: #### B MP, CDP, MG, RIANNA ####[facility] V[address]vyhheaway6[address] [place], [place] [address])[phone] Director: Carlos Rowland MD Eosinophils/100 WBC (Bld) 1 % Normal 1-4 [facility] Comment on above: Performed By: #### B MP, CDP, MG, RIANNA ####[facility] [address]okquxxhhqw8266 [place], [place] [address])[phone] Director: Carlos Rowland MD Erythrocyte distribution width (RBC) [Ratio] 15.2 % High 11.8-14.4 [facility] Comment on above: Performed By: #### B MP, CDP, MG, RIANNA ####[facility] Dmzl[address]cvtux4[address] [place], [place] [phone] Director: Carlos Rowland MD Hematocrit (Bld) [Volume fraction] 33.6 % Low 40.7-50.3 [facility] Comment on above: Performed By: #### B MP, CDP, MG, RIANNA ####[facility] Rgxicddthtjr6920 [place], [place] [phone] Director: Carlos Rowland MD Hemoglobin (Bld) [Mass/Vol] 10.6 g/dL Low 13.0-17.0 [facility] Comment on above: Performed By: #### B MP, CDP, MG, RIANNA ####[facility] [address] [place] [address])[phone] Director: Carlos Rowland MD Immature granulocytes/100 WBC (Bld) 1 % High 0 [facility] Comment on above: Performed By: #### B MP, CDP, MG, RIANNA ####[facility] Buscklqmer[address]1337 [place], [place] [phone] Director: Carlos Rowland MD Lymphocytes (Bld) [#/Vol] 1.08 10*3/uL Low 1.10-3.70 [facility] Comment on above: Performed By: #### B MP, CDP, MG, RIANNA ####[facility] Cfkvaaspciid8904 [place], [place] [phone] Director: Carlos Rowland MD Lymphocytes/100 WBC (Bld) 9 % Low 24-43 [facility] Comment on above: Performed By: #### B MP, CDP, MG, RIANNA ####[facility] Dargdmyrzspx2165 [place], [place] [phone] Director: Carlos Rowland MD MCH (RBC) [Entitic mass] 29.3 pg Normal 25.2-33.5 [facility] Comment on above: Performed By: #### B MP, CDP, MG, RIANNA ####[facility] To[address]rf[address] [place], [place] [phone] Director: Carlos Rowland MD MCHC (RBC) [Mass/Vol] 31.5 g/dL Normal 28.4-34.8 [facility] Comment on above: Performed By: #### B MP, CDP, MG, RIANNA ####[facility] Zhorambpueks2230 [place], [place] [phone] Director: Carlos Rowland MD MCV (RBC) [Entitic vol] 92.8 fL Normal 82.6-102.9 [facility] Comment on above: Performed By: #### B MP, CDP, MG, RIANNA ####[facility] [address] [place] [address] [phone] Director: Carlos Rowland MD Monocytes (Bld) [#/Vol] 0.85 10*3/uL Normal 0.10-1.20 [facility] Comment on above: Performed By: #### B MP, CDP, MG, RIANNA ####[facility] [address] [place] [address] [phone] Director: Carlos Rowland MD Monocytes/100 WBC (Bld) 7 % Normal 3-12 [facility] Comment on above: Performed By: #### B MP, CDP, MG, RIANNA ####[facility] Qmcgnpukaghe8487 [place], [place] [phone] Director: Carlos Rowland MD Neutrophil (Seg) 82 % High 36-65 [facility] Comment on above: Performed By: #### B MP, CDP, MG, RIANNA ####[facility] Ztjwrdjaspdt2023 [place], [place] [phone] Director: Carlos Rowland MD NRBC Automated 0.0 per 100 WBC Normal 0.0 [facility] Comment on above: Performed By: #### B MP, CDP, MG, RIANNA ####[facility] Qdd[address]acboqvs1863 [place], [place] [address])[phone] Director: Carlos Rowland MD Platelet mean volume (Bld) [Entitic vol] 9.8 fL Normal 8.1-13.5 [facility] Comment on above: Performed By: #### B MP, CDP, MG, RIANNA ####[facility] Mzkomfucmozb0455 [place], [place] [phone] Director: Carlos Rowland MD Platelets (Bld) [#/Vol] 179 10*3/uL Normal 138-453 [facility] Comment on above: Performed By: #### B MP, CDP, MG, RIANNA ####[address] [address])[phone] Director: Carlos Rowland MD RBC (Bld) [#/Vol] 3.62 10*6/uL Low 4.21-5.77 [facility] Comment on above: Performed By: #### B MP, CDP, MG, RIANNA ####[facility] [address] [place] [address] [phone] Director: Carlos Rowland MD RBC morphology finding Nom (Bld) ANISOCYTOSIS PRESENT Normal [facility] Comment on above: Performed By: #### B MP, CDP, MG, RIANNA ####[facility] Fodpvanjmmof4761 [place], [place] [address])[phone] Director: Carlos Rowland MD WBC (Bld) [#/Vol] 12.4 10*3/uL High 3.5-11.3 [facility] Comment on above: Performed By: #### B MP, CDP, MG, RIANNA ####[facility] Rmdtgldusfmw5392 [place], [place] [phone] Director: Carlos Rowland MD Cult,Urineon 07-14-2023 Cult,Urine Specimen Description .URINE Culture NO GROWTH Report Status FINAL 07/14/2023 Normal [facility] Comment on above: Performed By: #### U RC ####[address] [address] lab Director: Carlos Rowland MD Glucose,Whole Bloodon 2023 Glucose [Mass/Vol] 158 mg/dL High 75-110 [facility] Glucose [Mass/Vol] 226 mg/dL High 75-110 [facility] Glucose [Mass/Vol] 272 mg/dL High 75-110 [facility] Glucose [Mass/Vol] 143 mg/dL High -110 [facility] Magnesiumon 07-14-2023 Magnesium [Mass/Vol] 2.1 mg/dL Normal 1.6-2.6 [facility] Comment on above: Performed By: #### B MP, CDP, MG, RIANNA ####[facility] Esxsoicmusmz5161 [place] [address] lab Director: Carlos Rowland MD Phosphorus, Inorg.on 024 Phosphorus, Inorg. 3.2 mg/dL Normal 2.5-4.5 [facility] Comment on above: Performed By: #### B MP, CDP, MG, RIANNA ####[facility] Cz[address]qqs3850 [place] [address] lab Director: Carlos Rowland MD XR CERVICAL [...] Shaq Melendez MD 07/14/23 Final result Normal [facility] Basic Metabolic Profon 07-13 Anion gap [Moles/Vol] 10 mmol/L Normal 9-17 [facility] Comment on above: Performed By: #### U AX, UMICAO #### [facility] [employer] [address] [place] [address] Lens Examiner: Carlos Rowland MD Calcium [Mass/Vol] 8.5 mg/dL Low 8.6-10.4 [facility] Comment on above: Performed By: #### U AX, UMICAO #### [facility] [employer] [address] [place] [address] Lens Examiner: Carlos Rowland MD Chloride [Moles/Vol] 103 mmol/L Normal 98-107 [facility] Comment on above: Performed By: #### U AX, UMICAO #### [facility] [employer] [address] [place] [address] Lens Examiner: Carlos Rowland MD CO2 [Moles/Vol] 24 mmol/L Normal 20-31 [facility] Comment on above: Performed By: #### U AX, UMICAO #### [facility] [address] [place] [address] Lens Examiner: Carlos Rowland MD Creatinine [Mass/Vol] 1.0 mg/dL Normal 0.7-1.2 [facility] Comment on above: Performed By: #### U AX UMICAO #### [facility] [employer] [address] [place] [address] Lens Examiner: Carlos Rowland MD GFR/1.73 sq M.predicted among non-blacks MDRD (S/P/Bld) [Vol rate/Area] mL/min/{1.73_m2} Normal >60 [facility] Comment on above: Result Comment: These [...] By: #### U LUZ MARIA MCQUEEN #### [facility] [address] [place] [address] Lens Examiner: Carlos Rowland MD Glucose [Mass/Vol] 195 mg/dL High 70-99 [facility] Comment on above: Performed By: #### LUZ MARIA MERCHANT #### [facility] [employer] [address] [place] [address] Lens Examiner: Carlos Rowland MD Potassium [Moles/Vol] 4.9 mmol/L Normal 3.7-5.3 [facility] Comment on above: Performed By: #### JAMMIE MERCHANTO #### [facility] [employer] [address] [place] [address] Lens Examiner: Carlos Rowland MD Sodium [Moles/Vol] 137 mmol/L Normal 135-144 [facility] Comment on above: Performed By: #### LUZ MARIA MERCHANT #### [facility] [employer] [address] [place] [address] Lens Examiner: Carlos Rowland MD Urea nitrogen [Mass/Vol] 20 mg/dL Normal 8-23 [facility] Comment on above: Performed By: #### U JAMMIE MCQUEENO #### [facility] [employer] [address] [place] [address] Lens Examiner: Carlos Rowland MD CBC with Diffon 07-13-2023 Abs. Basophil 0.06 k/uL Normal 0.00-0.20 [facility] Comment on above: Performed By: #### U AX UMICAO #### [facility] [employer] [address] [place] [address] Lens Examiner: Carlos Rowland MD Abs.Imm.Granulocy te 0.07 k/uL Normal 0.00-0.30 [facility] Comment on above: Performed By: #### U AX UMICAO #### [facility] [employer] [address] [place] [address] Lens Examiner: Carlos Rowland MD Abs.Neutrophil (Seg) 9.84 k/uL High 1.50-8.10 [facility] Comment on above: Performed By: #### U AX UMICAO #### [facility] [employer] [address] [place] [address] Lens Examiner: Carlos Rowland MD Basophils/100 WBC (Bld) 1 % Normal 0-2 [facility] Comment on above: Performed By: #### U AX UMICAO #### [facility] [employer] [address] [place] [address] Lens Examiner: Carlos Rowland MD Eosinophils (Bld) [#/Vol] 0.03 10*3/uL Normal 0.00-0.44 [facility] Comment on above: Performed By: #### U AX UMICAO #### [facility] [employer] [address] [place] [address] Lens Examiner: Carlos Rowland MD Eosinophils/100 WBC (Bld) 0 % Low 1-4 [facility] Comment on above: Performed By: #### U AX UMICAO #### [facility] [employer] [address] [place] [address] Lens Examiner: Carlos Rowland MD Erythrocyte distribution width (RBC) [Ratio] 15.3 % High 11.8-14.4 [facility] Comment on above: Performed By: #### U AXJUSTINAICAO #### [address] [address] Lens Examiner: aCrlos Rowland MD Hematocrit (Bld) [Volume fraction] 35.5 % Low 40.7-50.3 [facility] Comment on above: Performed By: #### U AX, UMICAO #### [address] [address] Lens Examiner: Carlos Rowland MD Hemoglobin (Bld) [Mass/Vol] 10.8 g/dL Low 13.0-17.0 [facility] Comment on above: Performed By: #### U AX, UMICAO #### [facility] [employer] [address] [place] [address] Lens Examiner: Carlos Rowland MD Immature granulocytes/100 WBC (Bld) 1 % High 0 [facility] Comment on above: Performed By: #### U AX UMICAO #### [address] [address] Lens Examiner: Carlos Rowland MD Lymphocytes (Bld) [#/Vol] 1.15 10*3/uL Normal 1.10-3.70 [facility] Comment on above: Performed By: #### U AX UMICAO #### [facility] [employer] [address] [place] [address] Lens Examiner: Carlos Rowland MD Lymphocytes/100 WBC (Bld) 10 % Low 24-43 [facility] Comment on above: Performed By: #### U AX, UMICAO #### [address] [address] Lens Examiner: Carlos Rowland MD MCH (RBC) [Entitic mass] 29.1 pg Normal 25.2-33.5 [facility] Comment on above: Performed By: #### U AX UMICAO #### [facility] [employer] [address] [place] [address] Lens Examiner: Carlos Rowland MD MCHC (RBC) [Mass/Vol] 30.4 g/dL Normal 28.4-34.8 [facility] Comment on above: Performed By: #### U AX, UMICAO #### [address] [address] Lens Examiner: Carlos Rowland MD MCV (RBC) [Entitic vol] 95.7 fL Normal 82.6-102.9 [facility] Comment on above: Performed By: #### U AX, UMICAO #### [address] [address] Lens Examiner: Carlos Rowland MD Monocytes (Bld) [#/Vol] 0.73 10*3/uL Normal 0.10-1.20 [facility] Comment on above: Performed By: #### U AX, UMICAO #### [address] [address] Lens Examiner: Carlos Rowland MD Monocytes/100 WBC (Bld) 6 % Normal 3-12 [facility] Comment on above: Performed By: #### U AX, UMICAO #### [address] [address] Lens Examiner: Carlos Rowland MD Neutrophil (Seg) 82 % High 36-65 [facility] Comment on above: Performed By: #### U AX, UMICAO #### [address] [address] Lens Examiner: Carlos Rowland MD NRBC Automated 0.0 per 100 WBC Normal 0.0 [facility] Comment on above: Performed By: #### U AX, UMICAO #### [facility] [address] [place] [address] Lens Examiner: Carlos Rowland MD Platelet mean volume (Bld) [Entitic vol] 9.7 fL Normal 8.1-13.5 [facility] Comment on above: Performed By: #### U AXJUSTINAICAO #### [facility] [place] [address] Lens Examiner: Carlos Rowland MD Platelets (Bld) [#/Vol] 183 10*3/uL Normal 138-453 [facility] Comment on above: Performed By: #### U AXJUSTINAICAO #### [facility] [place] [address] Lens Examiner: Carlos Rowland MD RBC (Bld) [#/Vol] 3.71 10*6/uL Low 4.21-5.77 [facility] Comment on above: Performed By: #### U AXJUSTINAICAO #### [address] [address] Lens Examiner: Carlos Rowland MD RBC morphology finding Nom (Bld) ANISOCYTOSIS PRESENT Normal [facility] Comment on above: Performed By: #### U AXJUSTINAICAO #### [facility] [address] [place] [address] Lens Examiner: Carlos Rowland MD WBC (Bld) [#/Vol] 11.9 10*3/uL High 3.5-11.3 [facility] Comment on above: Performed By: #### U AXJUSTINAICAO #### [facility] [address] [place] [address] Lens Examiner: Carlos Rowland MD Glucose,Whole Bloodon 2023 Glucose [Mass/Vol] 213 mg/dL High 75-110 [facility] Glucose [Mass/Vol] 189 mg/dL High 75-110 [facility] Glucose [Mass/Vol] 260 mg/dL High 75-110 [facility] Glucose [Mass/Vol] 190 mg/dL High 75-110 [facility] Hemoglobin A1Con 07-13-2023 Glucose [Mass/Vol] 157 mg/dL Normal [facility] Comment on above: Result Comment: The ADA and AACC recommend providing the estimated average glucose result to permit better patient understanding of their HBA1c result. Performed By: #### P HO, CDP, BMP, GLYHGB, MG ####[facility] [address]ch[address] [place] [address] lab Director: Carlos Rowland MD HbA1c (Bld) [Mass fraction] 7.1 % High 4.0-6.0 [facility] Comment on above: Performed By: #### P HO, CDP, BMP, GLYHGB, MG ####[facility] [address]f0540 [place] [address] lab Director: Carlos Rowland MD MRI CERVICAL [...] Shalini Garcia MD 07/13/23 Final result Normal [facility] Magnesiumon 07-13-2023 Magnesium [Mass/Vol] 1.6 mg/dL Normal 1.6-2.6 [facility] Comment on above: Performed By: #### P HO, CDP, BMP, GLYHGB, MG ####[facility] [address] [place], [place] [address] lab Director: Carlos Rowland MD PTon 07-13-2023 INR Coag (PPP) [Relative time] 1.5 {INR} Normal [facility] Comment on above: Result Comment: Therapeutic Range: Moderate Anticoagulant Intensity: INR = 2.0-3.0 High Anticoagulant Intensity: INR = 2.5-3.5 Performed By: #### P T ####[place] [address] Lab Director: Carlos Rowland MD PT Coag (PPP) [Time] 17.7 s High 11.7-14.9 [facility] Comment on above: Performed By: #### P T ####[address] [phone] lab Director: Carlos Rowland MD Phosphorus, Inorg.on 024 Phosphorus, Inorg. 2.9 mg/dL Normal 2.5-4.5 [facility] Comment on above: Performed By: #### P HO, CDP, BMP, GLYHGB, MG ####[facility] [address]27[address] [place] [address] Lab Director: Carlos Rowland MD UA w/Reflex Cultureon 2023 Bilirubin, SemiQt,Ur Negative Normal NEG [facility] Comment on above: Performed By: #### U AX, UMICAO #### [facility] [address] [place] [address] Lens Examiner: Carlos Rowland MD Blood, Urine SMALL Abnormal NEG [facility] Comment on above: Performed By: #### U AX, UMICAO #### [facility] [address] [place] [address] Lens Examiner: Carlos Rowland MD Clarity (U) Clear Normal CLEAR [facility] Comment on above: Performed By: #### U AX, UMICAO #### [facility] [address] [place] [address] Lens Examiner: Carlos Rowland MD Color (U) Yellow Normal YEL [facility] Comment on above: Performed By: #### U AX, UMICAO #### [facility] [address] [place] [address] Lens Examiner: Carlos Rowland MD Glucose Ql (U) Negative Normal NEG [facility] Comment on above: Performed By: #### U AX, UMICAO #### [facility] [address] [place] [address] Lens Examiner: Carlos Rowland MD Ketones Ql (U) Negative Normal NEG [facility] Comment on above: Performed By: #### U AX, UMICAO #### [facility] [address] [place] [address] Lens Examiner: Carlos Rowland MD Leukocyte esterase Test strip Ql (U)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 0.0-0.1 [facility] Comment on above: Performed By: #### P OCGLUC #### [facility] [address] [place] [address] Dr. Obdulia Ng Basophils/100 WBC (Bld) 0.6 % Normal 0.2-2.0 [facility] Comment on above: Performed By: #### P OCGLUC #### [facility] [address] [place] [address] Dr. Obdulia Ng EO # 0.0 103/ul Normal 0.0-0.7 [facility] Comment on above: Performed By: #### P OCGLUC #### [facility] [address] [place] [address] Dr. Obdulia Ng Eosinophils/100 WBC (Bld) 0.0 % Critically low 0.9-7.0 [facility] Comment on above: Performed By: #### P OCGLUC #### [facility] [address] [place] [address] Dr. Obdulia Ng Erythrocyte distribution width (RBC) [Ratio] 13.4 % Normal 11.0-15.0 [facility] Comment on above: Performed By: #### P OCGLUC #### [facility] [address] [place] [address] Dr. Obdulia Ng Hematocrit (Bld) [Volume fraction] 40.3 % Critically low 42.0-54.0 [facility] Comment on above: Performed By: #### P OCGLUC #### [facility] [address] [place] [address] Dr. Obdulia Ng Hemoglobin (Bld) [Mass/Vol] 13.3 g/dL Critically low 14.0-18.0 [facility] Comment on above: Performed By: #### P OCGLUC #### [facility] [address] [place] [address] Dr. Obdulia Ng IG # 0.02 10e3/ul Normal 0.00-0.03 [facility] Comment on above: Performed By: #### P OCGLUC #### [facility] [address] [place] [address] [address] Obdulia Ng IG % 0.3 % Normal 0.0-0.5 [facility] Comment on above: Performed By: #### P OCGLUC #### [facility] [address] [place] [address] [address] Obdulia Ng LYMPH # 0.7 103/ul Critically low 1.2-3.8 [facility] Comment on above: Performed By: #### P OCGLUC #### [facility] [address] [place] [address] [address] Obdulia Ng Lymphocytes/100 WBC (Bld) 9.0 % Critically low 20.5-60.0 [facility] Comment on above: Performed By: #### P OCGLUC #### [facility] [address] [place] [address] Dr. Obdulia Ng MANUAL DIFF REQ NO Normal [facility] Comment on above: Performed By: #### P OCGLUC #### [facility] [address] [place] [address] [address] Obdulia Ng MCH (RBC) [Entitic mass] 32.3 pg Normal 25.9-34.0 [facility] Comment on above: Performed By: #### P OCGLUC #### [facility] [address] [place] [address] Dr. Obdulia Ng MCHC (RBC) [Mass/Vol] 33.0 g/dL Normal 29.9-35.2 [facility] Comment on above: Performed By: #### P OCGLUC #### [facility] [address] [place] [address] Dr. Obdulia Ng MCV (RBC) [Entitic vol] 97.8 fL Critically high 80.0-94.0 [facility] Comment on above: Performed By: #### P OCGLUC #### [facility] [address] [place] [address] Dr. Obdulia Ng MONO # 0.8 103/ul Normal 0.3-0.8 [facility] Comment on above: Performed By: #### P OCGLUC #### [facility] [address] [place] [address] Dr. Obdulia Ng Monocytes/100 WBC (Bld) 10.6 % Normal 1.7-12.0 [facility] Comment on above: Performed By: #### P OCGLUC #### [facility] [address] [place] [address] [address] Obdulia Ng NEUT # 6.3 103/ul Normal 1.4-6.5 [facility] Comment on above: Performed By: #### P OCGLUC #### [facility] [address] [place] [address] [address] Obdulia Ng Neutrophils/100 WBC (Bld) 79.5 % Critically high 43.0-75.0 [facility] Comment on above: Performed By: #### P OCGLUC #### [facility] [address] [place] [address] Dr. Obdulia Ng Platelet mean volume (Bld) [Entitic vol] 9.7 fL Normal 9.5-13.5 [facility] Comment on above: Performed By: #### P OCGLUC #### [facility] [address] [place] [address] Dr. Obdulia Ng PLT 215 103/ul Normal 150-450 [facility] Comment on above: Performed By: #### P OCGLUC #### [facility] [address] [place] [address] Dr. Obdulia Ng RBC 4.12 106/ul Critically low 4.70-6.10 [facility] Comment on above: Performed By: #### P OCGLUC #### [facility] [address] [place] [address] Dr. Obdulia Ng WBC 7.9 103/ul Normal 4.0-11.0 [facility] Comment on above: Performed By: #### P OCGLUC #### [facility] [address] [place] [address] ABD/PELVIS WO CONon [...] BROOKS STEPHENSON Date: 2022-09-07 14:10 Normal [facility] PROF CHEM 8 (BAS METB)on Anion gap [Moles/Vol] 12.5 mmol/L Normal [facility] Comment on above: Performed By: #### P OCGLUC #### [facility] [address] [place] [address] Dr. Obdulia Ng Calcium [Mass/Vol] 8.8 mg/dL Normal 8.5-10.1 [facility] Comment on above: Performed By: #### P OCGLUC #### [facility] [address] [place] [address] [address] Obdulia Ng Chloride [Moles/Vol] 103 mmol/L Normal 98-107 [facility] Comment on above: Performed By: #### P OCGLUC #### [facility] [address] [place] [address] [address] Obdulia Ng CO2 [Moles/Vol] 27.3 mmol/L Normal 21.0-32.0 [facility] Comment on above: Performed By: #### P OCGLUC #### [facility] [address] [place] [address] [address] Obdulia Ng Creatinine [Mass/Vol] 1.42 mg/dL Critically high 0.70-1.30 [facility] Comment on above: Performed By: #### P OCGLUC #### [facility] [address] [place] [address] [address] Obdulia Ng EGFR-AF TRINIDADIAN 58 mL/min/1.73m2 Critically low >=60 [facility] Comment on above: Performed By: #### P OCGLUC #### [facility] [address] [place] [address] [address] Obdulia Ng EGFR-NON AF TRINIDADIAN 48 mL/min/1.73m2 Critically low >=60 [facility] Comment on above: Performed By: #### P OCGLUC #### [facility] [address] [place] [address] [address] Obdulia Ng Glucose [Mass/Vol] 173 mg/dL Critically high 74-106 [facility] Comment on above: Performed By: #### P OCGLUC #### [facility] [address] [place] [address] [address] Obdulia Ng Potassium [Moles/Vol] 4.8 mmol/L Normal 3.5-5.1 [facility] Comment on above: Performed By: #### P OCGLUC #### [facility] [address] [place] [address] [address] Obdulia Ng Sodium [Moles/Vol] 138 mmol/L Normal 136-145 [facility] Comment on above: Performed By: #### P OCGLUC #### [facility] [address] [place] [address] Dr. Obdulia Ng Urea nitrogen [Mass/Vol] 25.0 mg/dL Critically high 7.0-18.0 [facility] Comment on above: Performed By: #### P OCGLUC #### [facility] [address] [place] [address] Dr. Obdulia Ng Urea nitrogen/Creatini ne [Mass ratio] 17.6 mg/mg Normal [facility] Comment on above: Performed By: #### P OCGLUC #### [facility] [address] [place] [address] Dr. Obudlia Ng PROTIMEon 09-07-2022 INR Coag (PPP) [Relative time] 1.87 {INR} Normal [facility] Comment on above: Performed By: #### P TT, PT #### [facility] [address] [place] [address] Dr. Obdulia Ng INR GUIDELINES SEE BELOW Normal [facility] Comment on above: Result Comment: BRAD RED INR: 2.0 - 3.0 CONDITIONS NOT LISTED BELOW 2.5 - 3.5 FOR PROSTHETIC HEART VALVE REPLACEMENT 2.5 - 3.5 RECURRENT THROMBOSIS Performed By: #### P TT, PT #### [facility] [address] [place] [address] Dr. Obdulia Ng PT Coag (PPP) [Time] 19.1 s Critically high 9.0-11.6 [facility] Comment on above: Performed By: #### P TT, PT #### [facility] [address] [place] [address] Dr. Obdulia Ng PTTon 09-07-2022 aPTT Coag (Bld) [Time] 29.9 s Normal 22.3-36.2 [facility] Comment on above: Performed By: #### P TT, PT #### [facility] [address] [place] [address] Dr. Obdulia Ng 36on 07-13-2022 36 Called [...] would not be calling him again. Normal [facility] BNPon 04-21-2022 Natriuretic peptide B (Bld) [Mass/Vol] 6682.0 pg/mL Critically high <=1,800.0 [facility] Comment on above: Performed By: #### P OCGLUC #### [facility] [address] [place] [address] Dr. Obdulia Ng CBC AUTO DIFFon 04-21-2022 BASO # 0.1 103/ul Normal 0.0-0.1 [facility] Comment on above: Performed By: #### P OCGLUC #### [facility] [address] [place] [address] Dr. Obdulia Ng Basophils/100 WBC (Bld) 1.3 % Normal 0.2-2.0 [facility] Comment on above: Performed By: #### P OCGLUC #### [facility] [address] [place] [address] Dr. Obdulia Ng EO # 0.1 103/ul Normal 0.0-0.7 [facility] Comment on above: Performed By: #### P OCGLUC #### [facility] [address] [place] [address] Dr. Obdulia Ng Eosinophils/100 WBC (Bld) 1.1 % Normal 0.9-7.0 [facility] Comment on above: Performed By: #### P OCGLUC #### [facility] [address] [place] [address] Dr. Obdulia Ng Erythrocyte distribution width (RBC) [Ratio] 15.7 % Critically high 11.0-15.0 [facility] Comment on above: Performed By: #### P OCGLUC #### [facility] [address] [place] [address] [address] Obdulia Ng Hematocrit (Bld) [Volume fraction] 39.8 % Critically low 42.0-54.0 [facility] Comment on above: Performed By: #### P OCGLUC #### [facility] [address] [place] [address] [address] Obdulia Ng Hemoglobin (Bld) [Mass/Vol] 13.3 g/dL Critically low 14.0-18.0 [facility] Comment on above: Performed By: #### P OCGLUC #### [facility] [address] [place] [address] [address] Obdulia Ng IG # 0.02 10e3/ul Normal 0.00-0.03 [facility] Comment on above: Performed By: #### P OCGLUC #### [facility] [address] [place] [address] Dr. Obdulia Ng IG % 0.2 % Normal 0.0-0.5 [facility] Comment on above: Performed By: #### P OCGLUC #### [facility] [address] [place] [address] [address] Obdulia Ng LYMPH # 1.5 103/ul Normal 1.2-3.8 [facility] Comment on above: Performed By: #### P OCGLUC #### [facility] [address] [place] [address] Dr. Obdulia Ng Lymphocytes/100 WBC (Bld) 18.0 % Critically low 20.5-60.0 [facility] Comment on above: Performed By: #### P OCGLUC #### [facility] [address] [place] [address] Dr. Obdulia Ng MANUAL DIFF REQ NO Normal [facility] Comment on above: Performed By: #### P OCGLUC #### [facility] [address] [place] [address] Dr. Obdulia Ng MCH (RBC) [Entitic mass] 31.1 pg Normal 25.9-34.0 [facility] Comment on above: Performed By: #### P OCGLUC #### [facility] [address] [place] [address] [address] Obdulia Ng MCHC (RBC) [Mass/Vol] 33.4 g/dL Normal 29.9-35.2 [facility] Comment on above: Performed By: #### P OCGLUC #### [facility] [address] [place] [address] [address] Obdulia Ng MCV (RBC) [Entitic vol] 93.0 fL Normal 80.0-94.0 [facility] Comment on above: Performed By: #### P OCGLUC #### [facility] [address] [place] [address] [address] Obdulia Ng MONO # 1.0 103/ul Critically high 0.3-0.8 [facility] Comment on above: Performed By: #### P OCGLUC #### [facility] [address] [place] [address] Dr. Obdulia Ng Monocytes/100 WBC (Bld) 12.1 % Critically high 1.7-12.0 [facility] Comment on above: Performed By: #### P OCGLUC #### [facility] [address] [place] [address] Dr. Obdulia Ng NEUT # 5.5 103/ul Normal 1.4-6.5 [facility] Comment on above: Performed By: #### P OCGLUC #### [facility] [address] [place] [address] Dr. Obdulia Ng Neutrophils/100 WBC (Bld) 67.3 % Normal 43.0-75.0 [facility] Comment on above: Performed By: #### P OCGLUC #### [facility] [address] [place] [address] [address] Obdulia Ng Platelet mean volume (Bld) [Entitic vol] 9.7 fL Normal 9.5-13.5 [facility] Comment on above: Performed By: #### P OCGLUC #### [facility] [address] [place] [address] [address] Obdulia Ng PLT 265 103/ul Normal 150-450 [facility] Comment on above: Performed By: #### P OCGLUC #### [facility] [address] [place] [address] [address] Obdulia Ng RBC 4.28 106/ul Critically low 4.70-6.10 [facility] Comment on above: Performed By: #### P OCGLUC #### [facility] [address] [place] [address] [address] Obdulia Ng WBC 8.2 103/ul Normal 4.0-11.0 [facility] Comment on above: Performed By: #### P OCGLUC #### [facility] [address] [place] [address] [address] Obdulia Ng PROF CHEM 8 (BAS METB)on Anion gap [Moles/Vol] 11.7 mmol/L Normal [facility] Comment on above: Performed By: #### P TT, PT #### [facility] [address] [place] [address] Dr. Obdulia Ng Calcium [Mass/Vol] 8.3 mg/dL Critically low 8.5-10.1 [facility] Comment on above: Performed By: #### P TT, PT #### [facility] [address] [place] [address] Dr. Obdulia Ng Chloride [Moles/Vol] 100 mmol/L Normal 98-107 [facility] Comment on above: Performed By: #### P TT, PT #### [facility] [address] [place] [address] Dr. Obdulia Ng CO2 [Moles/Vol] 32.5 mmol/L Critically high 21.0-32.0 [facility] Comment on above: Performed By: #### P TT, PT #### [facility] [address] [place] [address] Dr. Obdulia Ng Creatinine [Mass/Vol] 1.42 mg/dL Critically high 0.70-1.30 [facility] Comment on above: Performed By: #### P TT, PT #### [facility] [address] [place] [address] Dr. Obdulia Ng EGFR-AF TRINIDADIAN 58 mL/min/1.73m2 Critically low >=60 [facility] Comment on above: Performed By: #### P TT, PT #### [facility] [address] [place] [address] [address] Obdulia Ng EGFR-NON AF TRINIDADIAN 48 mL/min/1.73m2 Critically low >=60 [facility] Comment on above: Performed By: #### P TT, PT #### [facility] [address] [place] [address] [address] Obdulia Ng Glucose [Mass/Vol] 118 mg/dL Critically high 74-106 [facility] Comment on above: Performed By: #### P TT, PT #### [facility] [address] [place] [address] [address] Obdulia Ng Potassium [Moles/Vol] 3.2 mmol/L Critically low 3.5-5.1 [facility] Comment on above: Performed By: #### P TT, PT #### [facility] [address] [place] [address] [address] Obdulia Ng Sodium [Moles/Vol] 141 mmol/L Normal 136-145 [facility] Comment on above: Performed By: #### P TT, PT #### [facility] [address] [place] [address] [address] Obdulia Ng Urea nitrogen [Mass/Vol] 30.0 mg/dL Critically high 7.0-18.0 [facility] Comment on above: Performed By: #### P TT, PT #### [facility] [address] [place] [address] [address] Obduila Ng Urea nitrogen/Creatini ne [Mass ratio] 21.1 mg/mg Normal [facility] Comment on above: Performed By: #### P TT, PT #### [facility] [address] [place] [address] [address] Obdulia Ng PROTIMEon 04-21-2022 INR Coag (PPP) [Relative time] 2.09 {INR} Normal [facility] Comment on above: Performed By: #### C VDTBH #### [facility] [address] [place] [address] [address] Obdulia Ng INR GUIDELINES SEE BELOW Normal [facility] Comment on above: Result Comment: BRAD RED INR: 2.0 - 3.0 CONDITIONS NOT LISTED BELOW 2.5 - 3.5 FOR PROSTHETIC HEART VALVE REPLACEMENT 2.5 - 3.5 RECURRENT THROMBOSIS Performed By: #### C VDTBH #### [facility] [address] [place] [address] Dr. Obudlia Ng PT Coag (PPP) [Time] 21.5 s Critically high 9.0-11.6 [facility] Comment on above: Performed By: #### C VDTBH #### [facility] [address] [place] [address] Dr. Obdulia Ng BNPon 04-20-2022 Natriuretic peptide B (Bld) [Mass/Vol] 13238.0 pg/mL Critically high <=1,800.0 [facility] Comment on above: Performed By: #### C VDTBH #### [facility] [address] [place] [address] Dr. Obdulia Ng CBC AUTO DIFFon 04-20-2022 BASO # 0.1 103/ul Normal 0.0-0.1 [facility] Comment on above: Performed By: #### C VDTBH #### [facility] [address] [place] [address] Dr. Obdulia Ng Basophils/100 WBC (Bld) 1.1 % Normal 0.2-2.0 [facility] Comment on above: Performed By: #### C VDTBH #### [facility] [address] [place] [address] Dr. Obdulia Ng EO # 0.1 103/ul Normal 0.0-0.7 [facility] Comment on above: Performed By: #### C VDTBH #### [facility] [address] [place] [address] Dr. Obdulia Ng Eosinophils/100 WBC (Bld) 1.1 % Normal 0.9-7.0 [facility] Comment on above: Performed By: #### C VDTBH #### [facility] [address] [place] [address] Dr. Obdulia Ng Erythrocyte distribution width (RBC) [Ratio] 15.7 % Critically high 11.0-15.0 [facility] Comment on above: Performed By: #### C VDTBH #### [facility] [address] [place] [address] Dr. Obdulia Ng Hematocrit (Bld) [Volume fraction] 37.6 % Critically low 42.0-54.0 [facility] Comment on above: Performed By: #### C VDTBH #### [facility] [address] [place] [address] Dr. Obdulia Ng Hemoglobin (Bld) [Mass/Vol] 12.2 g/dL Critically low 14.0-18.0 [facility] Comment on above: Performed By: #### C VDTBH #### [facility] [address] [place] [address] Dr. Obdulia Ng IG # 0.03 10e3/ul Normal 0.00-0.03 [facility] Comment on above: Performed By: #### C VDTBH #### [facility] [address] [place] [address] Dr. Obdulia Ng IG % 0.4 % Normal 0.0-0.5 [facility] Comment on above: Performed By: #### C VDTBH #### [facility] [address] [place] [address] Dr. Obdulia Ng LYMPH # 1.7 103/ul Normal 1.2-3.8 [facility] Comment on above: Performed By: #### C VDTBH #### [facility] [address] [place] [address] Dr. Obdulia Ng Lymphocytes/100 WBC (Bld) 22.2 % Normal 20.5-60.0 [facility] Comment on above: Performed By: #### C VDTBH #### [facility] [address] [place] [address] Dr. Obdulia Ng MANUAL DIFF REQ NO Normal [facility] Comment on above: Performed By: #### C VDTBH #### [facility] [address] [place] [address] Dr. Obdulia Ng MCH (RBC) [Entitic mass] 31.0 pg Normal 25.9-34.0 [facility] Comment on above: Performed By: #### C VDTBH #### [facility] [address] [place] [address] Dr. Obdulia Ng MCHC (RBC) [Mass/Vol] 32.4 g/dL Normal 29.9-35.2 [facility] Comment on above: Performed By: #### C VDTBH #### [facility] [address] [place] [address] Dr. Obdulia Ng MCV (RBC) [Entitic vol] 95.4 fL Critically high 80.0-94.0 [facility] Comment on above: Performed By: #### C VDTBH #### [facility] [address] [place] [address] Dr. Obdulia Ng MONO # 0.6 103/ul Normal 0.3-0.8 [facility] Comment on above: Performed By: #### C VDTBH #### [facility] [address] [place] [address] Dr. Obdulia Ng Monocytes/100 WBC (Bld) 8.4 % Normal 1.7-12.0 [facility] Comment on above: Performed By: #### C VDTBH #### [facility] [address] [place] [address] Dr. Obdulia Ng NEUT # 5.1 103/ul Normal 1.4-6.5 [facility] Comment on above: Performed By: #### C VDTBH #### [facility] [address] [place] [address] Dr. Obdulia Ng Neutrophils/100 WBC (Bld) 66.8 % Normal 43.0-75.0 [facility] Comment on above: Performed By: #### C VDTBH #### [facility] [address] [place] [address] Dr. Obdulia Ng Platelet mean volume (Bld) [Entitic vol] 9.8 fL Normal 9.5-13.5 [facility] Comment on above: Performed By: #### C VDTBH #### [facility] [address] [address] [address] Obdulia Ng PLT 268 103/ul Normal 150-450 [facility] Comment on above: Performed By: #### C VDTBH #### [facility] [address] [id number] [address] Obdulia Ng RBC 3.94 106/ul Critically low 4.70-6.10 [facility] Comment on above: Performed By: #### C VDTBH #### [facility] [id number] Obdulia Ng WBC 7.6 103/ul Normal 4.0-11.0 [facility] Comment on above: Performed By: #### C VDTBH #### [facility] [id number] Obdulia Ng ECHO LIMITED STUDYon 022 ECHO LIMITED STUDY Patient: ELVIRA BERGMAN Exam Date: 04/20/2022 : 1940 Gender:M Ordering : DR BRIDGET FARLEY . Admission #: [id number] Family : Order #: [id number] CLICK HERE TO VIEW EXAM ECHOCARDIOGRAM REPORT [...] M.D. on 04/21/2022 at 14:27 Normal [facility] POINT OF CARE GLUCOSEon 03-24 Glucose [Mass/Vol] 146 mg/dL Critically high 74-106 [facility] Comment on above: Performed By: #### T SH, T4 #### [facility] [address] [address] [address] Obdulia Ng Glucose [Mass/Vol] 177 mg/dL Critically high 74-106 [facility] Comment on above: Performed By: #### P OCGLUC #### [facility] [address] [address] [address] Obdulia Ng Glucose [Mass/Vol] 164 mg/dL Critically high 74-106 [facility] Comment on above: Performed By: #### P OCGLUC #### [facility] [address] [address] [address] Obdulia Ng PROF CHEM 8 (BAS METB)on Anion gap [Moles/Vol] 11.2 mmol/L Normal [facility] Comment on above: Performed By: #### C VDTBH #### [facility] [address] [address] [address] Obdulia Ng Calcium [Mass/Vol] 8.5 mg/dL Normal 8.5-10.1 [facility] Comment on above: Performed By: #### C VDTBH #### [facility] [address] [address] [address] Obdulia Ng Chloride [Moles/Vol] 104 mmol/L Normal 98-107 [facility] Comment on above: Performed By: #### C VDTBH #### [facility] [address] [address] [address] Obdulia Ng CO2 [Moles/Vol] 28.6 mmol/L Normal 21.0-32.0 [facility] Comment on above: Performed By: #### C VDTBH #### [facility] [address] [place] [address] Dr. Obdulia Ng Creatinine [Mass/Vol] 1.32 mg/dL Critically high 0.70-1.30 [facility] Comment on above: Performed By: #### C VDTBH #### [facility] [address] [place] [address] Dr. Obdulia Ng EGFR-AF TRINIDADIAN >60 Normal >=60 [facility] Comment on above: Performed By: #### C VDTBH #### [facility] [address] [place] [address] Dr. Obdulia Ng EGFR-NON AF TRINIDADIAN 52 mL/min/1.73m2 Critically low >=60 [facility] Comment on above: Performed By: #### C VDTBH #### [facility] [address] [place] [address] Dr. Obdulia Ng Glucose [Mass/Vol] 92 mg/dL Normal 74-106 [facility] Comment on above: Performed By: #### C VDTBH #### [facility] [address] [place] [address] Dr. Obdulia Ng Potassium [Moles/Vol] 3.8 mmol/L Normal 3.5-5.1 [facility] Comment on above: Performed By: #### C VDTBH #### [facility] [address] [place] [address] Dr. Obdulia Ng Sodium [Moles/Vol] 140 mmol/L Normal 136-145 [facility] Comment on above: Performed By: #### C VDTBH #### [facility] [address] [place] [address] Dr. Obdulia Ng Urea nitrogen [Mass/Vol] 24.0 mg/dL Critically high 7.0-18.0 [facility] Comment on above: Performed By: #### C VDTBH #### [facility] [address] [place] [address] Dr. Obdulia Ng Urea nitrogen/Creatini ne [Mass ratio] 18.2 mg/mg Normal [facility] Comment on above: Performed By: #### C VDTBH #### [facility] [address] [place] [address] Dr. Obdulia Ng PROTIMEon 04-20-2022 INR Coag (PPP) [Relative time] 2.11 {INR} Normal [facility] Comment on above: Performed By: #### C VDTBH #### [facility] [address] [place] [address] Dr. Obdulia Ng INR GUIDELINES SEE BELOW Normal [facility] Comment on above: Result Comment: BRAD RED INR: 2.0 - 3.0 CONDITIONS NOT LISTED BELOW 2.5 - 3.5 FOR PROSTHETIC HEART VALVE REPLACEMENT 2.5 - 3.5 RECURRENT THROMBOSIS Performed By: #### C VDTBH #### [facility] [address] [place] [address] Dr. Obdulia Ng PT Coag (PPP) [Time] 21.7 s Critically high 9.0-11.6 [facility] Comment on above: Performed By: #### C VDTBH #### [facility] [address] [place] [address] Dr. Obdulia Ng BNPon 04-19-2022 Natriuretic peptide B (Bld) [Mass/Vol] 84223.0 pg/mL Critically high <=1,800.0 [facility] Comment on above: Performed By: #### P OCGLUC #### [facility] [address] [place] [address] Dr. Obdulia Ng CBC AUTO DIFFon 04-19-2022 BASO # 0.1 103/ul Normal 0.0-0.1 [facility] Comment on above: Performed By: #### C VDTBH #### [facility] [address] [place] [address] Dr. Obdulia Ng Basophils/100 WBC (Bld) 0.8 % Normal 0.2-2.0 [facility] Comment on above: Performed By: #### C VDTBH #### [facility] [address] [place] [address] Dr. Obdulia Ng EO # 0.0 103/ul Normal 0.0-0.7 [facility] Comment on above: Performed By: #### C VDTBH #### [facility] [address] [place] [address] Dr. Obdulia Ng Eosinophils/100 WBC (Bld) 0.4 % Critically low 0.9-7.0 [facility] Comment on above: Performed By: #### C VDTBH #### [facility] [address] [place] [address] Dr. Obdulia Ng Erythrocyte distribution width (RBC) [Ratio] 15.7 % Critically high 11.0-15.0 [facility] Comment on above: Performed By: #### C VDTBH #### [facility] [address] [place] [address] Dr. Obdulia Ng Hematocrit (Bld) [Volume fraction] 38.3 % Critically low 42.0-54.0 [facility] Comment on above: Performed By: #### C VDTBH #### [facility] [address] [place] [address] Dr. Obdulia Ng Hemoglobin (Bld) [Mass/Vol] 12.7 g/dL Critically low 14.0-18.0 [facility] Comment on above: Performed By: #### C VDTBH #### [facility] [address] [place] [address] Dr. Obdulia Ng IG # 0.02 10e3/ul Normal 0.00-0.03 [facility] Comment on above: Performed By: #### C VDTBH #### [facility] [address] [place] [address] Dr. Obdulia Ng IG % 0.2 % Normal 0.0-0.5 [facility] Comment on above: Performed By: #### C VDTBH #### [facility] [address] [address] [address] Obdulia Ng LYMPH # 1.3 103/ul Normal 1.2-3.8 [facility] Comment on above: Performed By: #### C VDTBH #### [facility] [address] [place] [address] Dr. Obdulia Ng Lymphocytes/100 WBC (Bld) 13.4 % Critically low 20.5-60.0 [facility] Comment on above: Performed By: #### C VDTBH #### [facility] [address] [place] [address] Dr. Obdulia Ng MANUAL DIFF REQ NO Normal [facility] Comment on above: Performed By: #### C VDTBH #### [facility] [address] [place] [address] Dr. Obdulia Ng MCH (RBC) [Entitic mass] 31.3 pg Normal 25.9-34.0 [facility] Comment on above: Performed By: #### C VDTBH #### [facility] [address] [place] [address] Dr. Obdulia Ng MCHC (RBC) [Mass/Vol] 33.2 g/dL Normal 29.9-35.2 [facility] Comment on above: Performed By: #### C VDTBH #### [facility] [address] [place] [address] Dr. Obdulia Ng MCV (RBC) [Entitic vol] 94.3 fL Critically high 80.0-94.0 [facility] Comment on above: Performed By: #### C VDTBH #### [facility] [address] [place] [address] Dr. Obdulia Ng MONO # 0.8 103/ul Normal 0.3-0.8 [facility] Comment on above: Performed By: #### C VDTBH #### [facility] [address] [place] [address] Dr. Obdulia Ng Monocytes/100 WBC (Bld) 7.7 % Normal 1.7-12.0 [facility] Comment on above: Performed By: #### C VDTBH #### [facility] [address] [place] [address] Dr. Obdulia Ng NEUT # 7.7 103/ul Critically high 1.4-6.5 [facility] Comment on above: Performed By: #### C VDTBH #### [facility] [address] [place] [address] Dr. Obdulia Ng Neutrophils/100 WBC (Bld) 77.5 % Critically high 43.0-75.0 [facility] Comment on above: Performed By: #### C VDTBH #### [facility] [address] [place] [address] Dr. Obdulia Ng Platelet mean volume (Bld) [Entitic vol] 9.7 fL Normal 9.5-13.5 [facility] Comment on above: Performed By: #### C VDTBH #### [facility] [address] [place] [address] Dr. Obdulia Ng PLT 277 103/ul Normal 150-450 [facility] Comment on above: Performed By: #### C VDTBH #### [facility] [address] [place] [address] Dr. Obdulia Ng RBC 4.06 106/ul Critically low 4.70-6.10 [facility] Comment on above: Performed By: #### C VDTBH #### [facility] [address] [place] [address] Dr. Obdulia Ng WBC 10.0 103/ul Normal 4.0-11.0 [facility] Comment on above: Performed By: #### C VDTBH #### [facility] [address] [place] [address] Dr. Obdulia Ng Covid-19 PCR (CVDTB)on 03-24 SARS-CoV-2 (COVID-19) RNA SHELBY+probe Ql (Unsp spec) Not detected Normal NOT DETECTED [facility] Comment on above: Result Comment: [...] for this test is supported by the [employer] of [employer] and Human Service's declaration that [...] used). Performed By: #### C VDTBH #### [facility] [address] [place] [address] Dr. Obdulia Ng POINT OF CARE GLUCOSEon 03-24 Glucose [Mass/Vol] 206 mg/dL Critically high 74-106 [facility] Comment on above: Performed By: #### P OCGLUC #### [facility] [address] [place] [address] Dr. Obdulia Ng PROF 14(COMP METB)on 022 Albumin [Mass/Vol] 3.3 g/dL Critically low 3.4-5.0 [facility] Comment on above: Performed By: #### P OCGLUC #### [facility] [address] [place] [address] Dr. Obdulia Ng Albumin/Globulin [Mass ratio] 1.1 {ratio} Normal [facility] Comment on above: Performed By: #### P OCGLUC #### [facility] [address] [place] [address] Dr. Obdulia Ng ALP [Catalytic activity/Vol] 82 U/L Normal 46-116 [facility] Comment on above: Performed By: #### P OCGLUC #### [facility] [address] [address] [address] Obdulia Ng ALT [Catalytic activity/Vol] 42 U/L Normal 16-63 [facility] Comment on above: Performed By: #### P OCGLUC #### [facility] [address] [address] [address] Obdulia Ng Anion gap [Moles/Vol] 14.7 mmol/L Normal [facility] Comment on above: Performed By: #### P OCGLUC #### [facility] [address] [address] [address] Obdulia Ng AST [Catalytic activity/Vol] 19 U/L Normal 15-37 [facility] Comment on above: Performed By: #### P OCGLUC #### [facility] [address] [address] [address] Obdulia Ng Bilirubin [Mass/Vol] 1.4 mg/dL Critically high 0.2-1.0 [facility] Comment on above: Performed By: #### P OCGLUC #### [facility] [address] [address] [address] Obdulia Ng Calcium [Mass/Vol] 8.7 mg/dL Normal 8.5-10.1 [facility] Comment on above: Performed By: #### P OCGLUC #### [facility] [address] [address] [address] Obdulia Ng Chloride [Moles/Vol] 105 mmol/L Normal 98-107 [facility] Comment on above: Performed By: #### P OCGLUC #### [facility] [address] [address] [address] Obdulia Ng CO2 [Moles/Vol] 22.3 mmol/L Normal 21.0-32.0 [facility] Comment on above: Performed By: #### P OCGLUC #### [facility] [address] [address] [address] Obdulia Ng Creatinine [Mass/Vol] 1.20 mg/dL Normal 0.70-1.30 [facility] Comment on above: Performed By: #### P OCGLUC #### [facility] [address] [address] [address] Obdulia Ng EGFR-AF TRINIDADIAN >60 Normal >=60 [facility] Comment on above: Performed By: #### P OCGLUC #### [facility] [address] [address] [address] Obdulia Ng EGFR-NON AF TRINIDADIAN 58 mL/min/1.73m2 Critically low >=60 [facility] Comment on above: Performed By: #### P OCGLUC #### [facility] [address] [address] [address] Obdulia Ng Globulin (S) [Mass/Vol] 3.1 g/dL Normal [facility] Comment on above: Performed By: #### P OCGLUC #### [facility] [address] [address] [address] Obdulia Ng Glucose [Mass/Vol] 124 mg/dL Critically high 74-106 [facility] Comment on above: Performed By: #### P OCGLUC #### [facility] [address] [address] [address] Obdulia Ng Potassium [Moles/Vol] 4.0 mmol/L Normal 3.5-5.1 [facility] Comment on above: Performed By: #### P OCGLUC #### [facility] [address] [address] [address] Obdulia Ng Protein [Mass/Vol] 6.4 g/dL Normal 6.4-8.2 [facility] Comment on above: Performed By: #### P OCGLUC #### [facility] [address] [address] [address] Obdulia Ng Sodium [Moles/Vol] 138 mmol/L Normal 136-145 [facility] Comment on above: Performed By: #### P OCGLUC #### [facility] [address] [address] [address] Obdulia Ng Urea nitrogen [Mass/Vol] 23.0 mg/dL Critically high 7.0-18.0 [facility] Comment on above: Performed By: #### P OCGLUC #### [facility] [address] [place] [address] Dr. Obdulia Ng Urea nitrogen/Creatini ne [Mass ratio] 19.2 mg/mg Normal [facility] Comment on above: Performed By: #### P OCGLUC #### [facility] [address] [place] [address] Dr. Obdulia Ng PROTIMEon 04-19-2022 INR Coag (PPP) [Relative time] 1.88 {INR} Normal [facility] Comment on above: Performed By: #### P TT, PT #### [facility] [address] [place] [address] Dr. Obdulia Ng INR GUIDELINES SEE BELOW Normal [facility] Comment on above: Result Comment: BRAD RED INR: 2.0 - 3.0 CONDITIONS NOT LISTED BELOW 2.5 - 3.5 FOR PROSTHETIC HEART VALVE REPLACEMENT 2.5 - 3.5 RECURRENT THROMBOSIS Performed By: #### P TT, PT #### [facility] [address] [place] [address] Dr. Obdulia Ng PT Coag (PPP) [Time] 19.5 s Critically high 9.0-11.6 [facility] Comment on above: Performed By: #### P TT, PT #### [facility] [address] [place] [address] Dr. Obdulia Ng PTTon 04-19-2022 aPTT Coag (Bld) [Time] 29.1 s Normal 22.3-36.2 [facility] Comment on above: Performed By: #### P TT, PT #### [facility] [address] [place] [address] Dr. Obdulia Ng TROPONIN, HIGH SENSITIVITYon 04-19-2022 HSTROP 20.6 pg/mL Normal 4.0-76.1 [facility] Comment on above: Result Comment: CUT- OFF POINTS HAVE BEEN ESTABLISHED BASED ON THE FOURTH UNIVERSAL DEFINITIONS OF MYOCARDIAL INFARCTION. THE UPPER REFERENCE LIMIT (URL) OF TROPONIN, DEFINED THE 99TH PERCENTILE OF cTnI DISTRIBUTION IN A REFERENCE POPULATION, HAS BEEN CONFIRMED THE DECISION THRESHOLD FOR [place] DIAGNOSIS. Performed By: #### P OCGLUC #### [facility] [address] [address] [address] Obdulia Ng XR CHEST 1 Von [...] BROOKS STEPHENSON Date: 2022-04-19 16:11 Normal [facility] PROTIMEon 04-03-2022 INR Coag (PPP) [Relative time] 4.04 {INR} Normal [facility] Comment on above: Performed By: #### P OCGLUC #### [facility] [address] [address] [address] Obdulia Ng INR GUIDELINES SEE BELOW Normal [facility] Comment on above: Result Comment: BRAD RED INR: 2.0 - 3.0 CONDITIONS NOT LISTED BELOW 2.5 - 3.5 FOR PROSTHETIC HEART VALVE REPLACEMENT 2.5 - 3.5 RECURRENT THROMBOSIS Performed By: #### P OCGLUC #### [facility] [address] [address] [address] Obdulia Ng PT Coag (PPP) [Time] 39.8 s Critically high 9.0-11.6 [facility] Comment on above: Performed By: #### P OCGLUC #### [facility] [address] [address] [address] Obdulia Ng Follow-Upon 03-12-2022 Follow-Up [id number] Joby Bergman 1940 M Date Provider Department Center 03/12/2022 GIL PARSON [facility] Family History Problem Relation Age of Onset Heart attack Father Family Status - Relation Status Age at Father Level of Service:02595 [place] OFFICE/OUTPATIENT ESTABLISHED MOD MDM 30-39 MIN Normal [facility] Office Visiton 02-19-2022 Follow-up visit [id number] Joby Bergman matthew Trujillo 1940 M Date Provider Department Center 02/19/2022 GIL PARSON [facility] Family History Problem Relation Age of Onset Heart attack Father Family Status - Relation Status Age at Father Level of Service:15378 [place] OFFICE/OUTPATIENT NEW HIGH MDM 60-74 MINUTES Reason for Visit and Comments: Atrial Fibrillation [80] Congestive Heart Failure [127] Palpitations [453407] Normal [facility] BNPon 02-18-2022 Natriuretic peptide B (Bld) [Mass/Vol] 4200.0 pg/mL Critically high <=1,800.0 [facility] Comment on above: Performed By: #### P TT, PT #### [facility] [address] [place] [address] Dr. Obdulia Ng CBC AUTO DIFFon 02-18-2022 BASO # 0.0 103/ul Normal 0.0-0.1 [facility] Comment on above: Performed By: #### C VDTBH #### [facility] [address] [place] [address] Dr. Obdulia Ng Basophils/100 WBC (Bld) 0.3 % Normal 0.2-2.0 [facility] Comment on above: Performed By: #### C VDTBH #### [facility] [address] [place] [address] Dr. Obdulia Ng EO # 0.0 103/ul Normal 0.0-0.7 [facility] [facility] Comment on above: Performed By: #### C VDTBH #### [facility] [address] [place] [address] Dr. Obdulia Ng Eosinophils/100 WBC (Bld) 0.1 % Critically low 0.9-7.0 [facility] Comment on above: Performed By: #### C VDTBH #### [facility] [address] [place] [address] Dr. Obdulia Ng Erythrocyte distribution width (RBC) [Ratio] 14.6 % Normal 11.0-15.0 [facility] Comment on above: Performed By: #### C VDTBH #### [facility] [address] [place] [address] Dr. Obdulia Ng Hematocrit (Bld) [Volume fraction] 37.7 % Critically low 42.0-54.0 [facility] Comment on above: Performed By: #### C VDTBH #### [facility] [address] [place] [address] Dr. Obdulia Ng Hemoglobin (Bld) [Mass/Vol] 12.3 g/dL Critically low 14.0-18.0 [facility] Comment on above: Performed By: #### C VDTBH #### [facility] [address] [place] [address] Dr. Obdulia Ng IG # 0.04 10e3/ul Critically high 0.00-0.03 [facility] Comment on above: Performed By: #### C VDTBH #### [facility] [address] [place] [address] Dr. Obdulia Ng IG % 0.4 % Normal 0.0-0.5 [facility] Comment on above: Performed By: #### C VDTBH #### [facility] [address] [place] [address] Dr. Obdulia Ng LYMPH # 1.1 103/ul Critically low 1.2-3.8 [facility] Comment on above: Performed By: #### C VDTBH #### [facility] [address] [place] [address] Dr. Obdulia Ng Lymphocytes/100 WBC (Bld) 11.0 % Critically low 20.5-60.0 [facility] Comment on above: Performed By: #### C VDTBH #### [facility] [address] [place] [address] Dr. Obdulia Ng MANUAL DIFF REQ NO Normal [facility] Comment on above: Performed By: #### C VDTBH #### [facility] [address] [place] [address] Dr. Obdulia Ng MCH (RBC) [Entitic mass] 31.1 pg Normal 25.9-34.0 [facility] Comment on above: Performed By: #### C VDTBH #### [facility] [address] [place] [address] Dr. Obdulia Ng MCHC (RBC) [Mass/Vol] 32.6 g/dL Normal 29.9-35.2 [facility] Comment on above: Performed By: #### C VDTBH #### [facility] [address] [place] [address] Dr. Obdulia Ng MCV (RBC) [Entitic vol] 95.4 fL Critically high 80.0-94.0 [facility] Comment on above: Performed By: #### C VDTBH #### [facility] [address] [place] [address] Dr. Obdulia Ng MONO # 1.4 103/ul Critically high 0.3-0.8 [facility] Comment on above: Performed By: #### C VDTBH #### [facility] [address] [place] [address] Dr. Obdulia Ng Monocytes/100 WBC (Bld) 14.4 % Critically high 1.7-12.0 [facility] Comment on above: Performed By: #### C VDTBH #### [facility] [address] [place] [address] Dr. Obdulia Ng NEUT # 7.2 103/ul Critically high 1.4-6.5 [facility] Comment on above: Performed By: #### C VDTBH #### [facility] [address] [place] [address] Dr. Obdulia Ng Neutrophils/100 WBC (Bld) 73.8 % Normal 43.0-75.0 [facility] Comment on above: Performed By: #### C VDTBH #### [facility] [address] [place] [address] Dr. Obdulia Ng Platelet mean volume (Bld) [Entitic vol] 9.9 fL Normal 9.5-13.5 [facility] Comment on above: Performed By: #### C VDTBH #### [facility] [address] [address] [address] Obdulia Ng PLT 220 103/ul Normal 150-450 [facility] Comment on above: Performed By: #### C VDTBH #### [facility] [address] [address] [address] Obdulia Ng RBC 3.95 106/ul Critically low 4.70-6.10 [facility] Comment on above: Performed By: #### C VDTBH #### [facility] [address] [address] [address] Obdulia Ng WBC 9.7 103/ul Normal 4.0-11.0 [facility] Comment on above: Performed By: #### C VDTBH #### [facility] [address] [place] [address] Dr. Obdulia Ng POINT OF CARE GLUCOSEon 01-22 Glucose [Mass/Vol] 127 mg/dL Critically high 74-106 [facility] Comment on above: Performed By: #### P OCGLUC #### [facility] [address] [address] [address] Obdulai Ng PROF CHEM 8 (BAS METB)on Anion gap [Moles/Vol] 11.7 mmol/L Normal [facility] Comment on above: Performed By: #### P TT, PT #### [facility] [address] [place] [address] Dr. Obdulia Ng Calcium [Mass/Vol] 8.2 mg/dL Critically low 8.5-10.1 [facility] Comment on above: Performed By: #### P TT, PT #### [facility] [address] [address] [address] Obdulia Ng Chloride [Moles/Vol] 105 mmol/L Normal 98-107 [facility] Comment on above: Performed By: #### P TT, PT #### [facility] [address] [address] [address] Obdulia Ng CO2 [Moles/Vol] 27.3 mmol/L Normal 21.0-32.0 [facility] Comment on above: Performed By: #### P TT, PT #### [facility] [address] [address] [address] Obdulia Ng Creatinine [Mass/Vol] 1.22 mg/dL Normal 0.70-1.30 [facility] Comment on above: Performed By: #### P TT, PT #### [facility] [address] [address] [address] Obdulia Ng EGFR-AF TRINIDADIAN >60 Normal >=60 [facility] Comment on above: Performed By: #### P TT, PT #### [facility] [address] [address] [address] Obdulia Ng EGFR-NON AF TRINIDADIAN 57 mL/min/1.73m2 Critically low >=60 [facility] Comment on above: Performed By: #### P TT, PT #### [facility] [address] [address] [address] Obdulia Ng Glucose [Mass/Vol] 129 mg/dL Critically high 74-106 [facility] Comment on above: Performed By: #### P TT, PT #### [facility] [address] [address] [address] Obdulia Ng Potassium [Moles/Vol] 4.0 mmol/L Normal 3.5-5.1 [facility] Comment on above: Performed By: #### P TT, PT #### [facility] [address] [address] [address] Obdulia Ng Sodium [Moles/Vol] 140 mmol/L Normal 136-145 [facility] Comment on above: Performed By: #### P TT, PT #### [facility] [address] [address] [address] Obdulia Ng Urea nitrogen [Mass/Vol] 31.0 mg/dL Critically high 7.0-18.0 [facility] Comment on above: Performed By: #### P TT, PT #### [facility] [address] [address] [address] Obdulia Ng Urea nitrogen/Creatini ne [Mass ratio] 25.4 mg/mg Normal [facility] Comment on above: Performed By: #### P TT, PT #### [facility] [address] [place] [address] Dr. Obdulia Ng PROTIMEon 02-18-2022 INR Coag (PPP) [Relative time] 1.72 {INR} Normal [facility] Comment on above: Performed By: #### P OCGLUC #### [facility] [address] [place] [address] Dr. Obdulia Ng INR GUIDELINES SEE BELOW Normal [facility] Comment on above: Result Comment: BRAD RED INR: 2.0 - 3.0 CONDITIONS NOT LISTED BELOW 2.5 - 3.5 FOR PROSTHETIC HEART VALVE REPLACEMENT 2.5 - 3.5 RECURRENT THROMBOSIS Performed By: #### P OCGLUC #### [facility] [address] [place] [address] Dr. Obdulia Ng PT Coag (PPP) [Time] 17.9 s Critically high 9.0-11.6 [facility] Comment on above: Performed By: #### P OCGLUC #### [facility] [address] [place] [address] Dr. Obdulia Ng BNPon 02-17-2022 Natriuretic peptide B (Bld) [Mass/Vol] 30307.0 pg/mL Critically high <=1,800.0 [facility] Comment on above: Performed By: #### P OCGLUC #### [facility] [address] [place] [address] Dr. Obdulia Ng CBC W MANUAL DIFFon 02-18-20 22 ATYPICAL LYMPH # Normal [facility] Comment on above: Performed By: #### C VDTBH #### [facility] [address] [place] [address] Dr. Obdulia Ng ATYPICAL LYMPH % Normal [facility] Comment on above: Performed By: #### C VDTBH #### [facility] [address] [place] [address] Dr. Obdulia Ng BAND # 0.0 103/ul Normal 0.0-0.3 [facility] Comment on above: Performed By: #### C VDTBH #### [facility] [address] [address] [address] Obdulia Ng BAND % 0 % Normal 0-5 [facility] Comment on above: Performed By: #### C VDTB #### [facility] [address] [place] [address] Dr. Obdulia Ng BASOM # 0.00 103/ul Normal 0.00-0.10 [facility] Comment on above: Performed By: #### C VDTBH #### [facility] [address] [place] [address] Dr. Obdulia Ng BASOM % 0.0 % Critically low 0.2-2.0 [facility] Comment on above: Performed By: #### C VDTBH #### [facility] [address] [place] [address] Dr. Obdulia Ng BLAST # Normal [facility] Comment on above: Performed By: #### C VDTBH #### [facility] [address] [place] [address] Dr. Obdulia Ng BLAST % Normal [facility] Comment on above: Performed By: #### C VDTB #### [facility] [address] [place] [address] Dr. Obdulia Ng CORRECTED WBC Normal 4.0-11.0 [facility] Comment on above: Performed By: #### C VDTBH #### [facility] [address] [place] [address] Dr. Obdulia Ng EOS # 0.00 103/ul Normal 0.00-0.70 [facility] Comment on above: Performed By: #### C VDTBH #### [facility] [address] [place] [address] Dr. Obdulia Ng EOS% 0.0 % Critically low 0.9-7.0 [facility] Comment on above: Performed By: #### C VDTBH #### [facility] [address] [place] [address] Dr. Obdulia Ng HCT 35.8 % Critically low 42.0-54.0 [facility] Comment on above: Performed By: #### C VDTBH #### [facility] [address] [address] [address] Obdulia Ng HGB 11.7 g/dl Critically low 14.0-18.0 [facility] Comment on above: Performed By: #### C VDTBH #### [facility] [address] [address] [address] Obdulia Ng LYMPHM # 0.50 103/ul Critically low 1.20-3.80 [facility] Comment on above: Performed By: #### C VDTBH #### [facility] [address] [address] [address] Obdulia Ng LYMPHM% 6.0 % Critically low 20.5-60.0 [facility] Comment on above: Performed By: #### C VDTBH #### [facility] [address] [place] [address] Dr. Obdulia Ng MCH 31.6 pg Normal 25.9-34.0 [facility] Comment on above: Performed By: #### C VDTBH #### [facility] [address] [address] [address] Obdulia Ng MCHC 32.7 g/dl Normal 29.9-35.2 [facility] Comment on above: Performed By: #### C VDTBH #### [facility] [address] [place] [address] Dr. Obdulia Ng MCV 96.8 fL Critically high 80.0-94.0 [facility] Comment on above: Performed By: #### C VDTBH #### [facility] [address] [address] [address] Obdulia Ng METAMYELOCYTE # 0.2 103/ul Normal [facility] Comment on above: Performed By: #### C VDTBH #### [facility] [address] [place] [address] Dr. Obdulia Ng METAMYELOCYTE % 3 % Normal [facility] Comment on above: Performed By: #### C VDTBH #### [facility] [address] [address] [address] Obdulia Ng MONOM# 0.00 103/ul Critically low 0.30-0.80 [facility] Comment on above: Performed By: #### C VDTBH #### [facility] [address] [address] [address] Obdulia Ng MONOM% 0.0 % Critically low 1.7-12.0 [facility] Comment on above: Performed By: #### C VDTBH #### [facility] [address] [address] [address] Obdulia Ng MPV 9.7 fL Normal 9.5-13.5 [facility] Comment on above: Performed By: #### C VDTBH #### [facility] [address] [place] [address] Dr. Obdulia Ng MYELOCYTE # Normal [facility] Comment on above: Performed By: #### C VDTBH #### [facility] [address] [address] [address] Obdulia Ng MYELOCYTE % Normal [facility] Comment on above: Performed By: #### C VDTBH #### [facility] [address] [address] [address] Obdulia Ng NRBC Normal [facility] Comment on above: Performed By: #### C VDTBH #### [facility] [address] [address] [address] Obdulia Ng PLT 218 103/ul Normal 150-450 [facility] Comment on above: Performed By: #### C VDTBH #### [facility] [address] [address] [address] Obdulia Ng RBC 3.70 106/ul Critically low 4.70-6.10 [facility] Comment on above: Performed By: #### C VDTBH #### [facility] [address] [place] [address] Dr. Obdulia Ng RDW 14.6 % Normal 11.0-15.0 [facility] Comment on above: Performed By: #### C VDTBH #### [facility] [address] [address] [address] Obdulia Ng SEG # 7.55 103/ul Critically high 1.40-6.50 [facility] Comment on above: Performed By: #### C VDTBH #### [facility] [address] [place] [address] Dr. Obdulia Ng SEG % 91.0 % Critically high 43.0-75.0 [facility] Comment on above: Performed By: #### C VDTBH #### [facility] [address] [address] [address] Obdulia Ng WBC 8.3 103/ul Normal 4.0-11.0 [facility] Comment on above: Performed By: #### C VDTBH #### [facility] [address] [place] [address] Dr. Obdulia Ng POINT OF CARE GLUCOSEon 01-22 Glucose [Mass/Vol] 133 mg/dL Critically high 74-106 [facility] Comment on above: Performed By: #### P OCGLUC #### [facility] [address] [place] [address] Dr. Obdulia Ng Glucose [Mass/Vol] 255 mg/dL Critically high 74-106 [facility] Comment on above: Performed By: #### T SH, T4 #### [facility] [address] [place] [address] Dr. Obdulia Ng Glucose [Mass/Vol] 229 mg/dL Critically high 74-106 [facility] Comment on above: Performed By: #### C BC #### [facility] [address] [place] [address] Dr. Obdulia Ng Glucose [Mass/Vol] 138 mg/dL Critically high 74-106 [facility] Comment on above: Performed By: #### P TT, PT #### [facility] [address] [place] [address] Dr. Obdulia Ng PROF CHEM 8 (BAS METB)on Anion gap [Moles/Vol] 11.3 mmol/L Normal [facility] Comment on above: Performed By: #### P OCGLUC #### [facility] [address] [address] [address] Obdulia Ng Calcium [Mass/Vol] 8.2 mg/dL Critically low 8.5-10.1 [facility] Comment on above: Performed By: #### P OCGLUC #### [facility] [address] [address] [address] Obdulia Ng Chloride [Moles/Vol] 104 mmol/L Normal 98-107 [facility] Comment on above: Performed By: #### P OCGLUC #### [facility] [address] [address] [address] Obdulia Ng CO2 [Moles/Vol] 27.7 mmol/L Normal 21.0-32.0 [facility] Comment on above: Performed By: #### P OCGLUC #### [facility] [address] [address] [address] Obdulia Ng Creatinine [Mass/Vol] 1.34 mg/dL Critically high 0.70-1.30 [facility] Comment on above: Performed By: #### P OCGLUC #### [facility] [address] [address] [address] Obdulia Ng EGFR-AF TRINIDADIAN >60 Normal >=60 [facility] Comment on above: Performed By: #### P OCGLUC #### [facility] [address] [address] [address] Obdulia Ng EGFR-NON AF TRINIDADIAN 51 mL/min/1.73m2 Critically low >=60 [facility] Comment on above: Performed By: #### P OCGLUC #### [facility] [address] [address] [address] Obdulia Ng Glucose [Mass/Vol] 160 mg/dL Critically high 74-106 [facility] Comment on above: Performed By: #### P OCGLUC #### [facility] [address] [address] [address] Obdulia Ng Potassium [Moles/Vol] 4.0 mmol/L Normal 3.5-5.1 [facility] Comment on above: Performed By: #### P OCGLUC #### [facility] [address] [address] [address] Obdulia Ng Sodium [Moles/Vol] 139 mmol/L Normal 136-145 [facility] Comment on above: Performed By: #### P OCGLUC #### [facility] [address] [place] [address] Dr. Obdulia Ng Urea nitrogen [Mass/Vol] 24.0 mg/dL Critically high 7.0-18.0 [facility] Comment on above: Performed By: #### P OCGLUC #### [facility] [address] [place] [address] Dr. Obdulia Ng Urea nitrogen/Creatini ne [Mass ratio] 17.9 mg/mg Normal [facility] Comment on above: Performed By: #### P OCGLUC #### [facility] [address] [place] [address] Dr. Obdulia Ng PROTIMEon 02-17-2022 INR Coag (PPP) [Relative time] 2.41 {INR} Normal [facility] Comment on above: Performed By: #### C VDTBH #### [facility] [address] [place] [address] Dr. Obdulia Ng INR GUIDELINES SEE BELOW Normal [facility] Comment on above: Result Comment: BRAD RED INR: 2.0 - 3.0 CONDITIONS NOT LISTED BELOW 2.5 - 3.5 FOR PROSTHETIC HEART VALVE REPLACEMENT 2.5 - 3.5 RECURRENT THROMBOSIS Performed By: #### C VDTBH #### [facility] [address] [place] [address] Dr. Obdulia Ng PT Coag (PPP) [Time] 24.6 s Critically high 9.0-11.6 [facility] Comment on above: Performed By: #### C VDTBH #### [facility] [address] [place] [address] Dr. Obdulia Ng XR CHEST 2 Von [...] BROOKS STEPHENSON Date: 2022-02-17 07:01 Normal [facility] BNPon 02-16-2022 Natriuretic peptide B (Bld) [Mass/Vol] 08205.0 pg/mL Critically high <=1,800.0 [facility] Comment on above: Performed By: #### C BC #### [facility] [address] [place] [address] Dr. Obdulia Ng CBC AUTO DIFFon 02-16-2022 BASO # 0.1 103/ul Normal 0.0-0.1 [facility] Comment on above: Performed By: #### C VDTBH #### [facility] [address] [place] [address] Dr. Obdulia Ng Basophils/100 WBC (Bld) 0.4 % Normal 0.2-2.0 [facility] Comment on above: Performed By: #### C VDTBH #### [facility] [address] [place] [address] Dr. Obdulia Ng EO # 0.0 103/ul Normal 0.0-0.7 [facility] Comment on above: Performed By: #### C VDTBH #### [facility] [address] [place] [address] Dr. Obdulia Ng Eosinophils/100 WBC (Bld) 0.0 % Critically low 0.9-7.0 [facility] Comment on above: Performed By: #### C VDTBH #### [facility] [address] [place] [address] Dr. Odbulia Ng Erythrocyte distribution width (RBC) [Ratio] 14.6 % Normal 11.0-15.0 [facility] Comment on above: Performed By: #### C VDTBH #### [facility] [address] [place] [address] Dr. Obdulia Ng Hematocrit (Bld) [Volume fraction] 40.8 % Critically low 42.0-54.0 [facility] Comment on above: Performed By: #### C VDTBH #### [facility] [address] [place] [address] Dr. Obdulia Ng Hemoglobin (Bld) [Mass/Vol] 13.3 g/dL Critically low 14.0-18.0 [facility] Comment on above: Performed By: #### C VDTBH #### [facility] [address] [address] [address] Obdulia Ng IG # 0.05 10e3/ul Critically high 0.00-0.03 [facility] Comment on above: Performed By: #### C VDTBH #### [facility] [address] [place] [address] Dr. Obdulia Ng IG % 0.4 % Normal 0.0-0.5 [facility] Comment on above: Performed By: #### C VDTBH #### [facility] [address] [place] [address] Dr. Obdulia Ng LYMPH # 0.5 103/ul Critically low 1.2-3.8 [facility] Comment on above: Performed By: #### C VDTBH #### [facility] [address] [place] [address] Dr. Obdulia Ng Lymphocytes/100 WBC (Bld) 3.7 % Critically low 20.5-60.0 [facility] Comment on above: Performed By: #### C VDTBH #### [facility] [address] [place] [address] Dr. Obdulia Ng MANUAL DIFF REQ NO Normal [facility] Comment on above: Performed By: #### C VDTBH #### [facility] [address] [address] [address] Obdulia Ng MCH (RBC) [Entitic mass] 31.7 pg Normal 25.9-34.0 [facility] Comment on above: Performed By: #### C VDTBH #### [facility] [address] [place] [address] Dr. Obdulia Ng MCHC (RBC) [Mass/Vol] 32.6 g/dL Normal 29.9-35.2 [facility] Comment on above: Performed By: #### C VDTBH #### [facility] [address] [place] [address] Dr. Obdulia Ng MCV (RBC) [Entitic vol] 97.1 fL Critically high 80.0-94.0 [facility] Comment on above: Performed By: #### C VDTBH #### [facility] [address] [place] [address] Dr. Obdulia Ng MONO # 1.0 103/ul Critically high 0.3-0.8 [facility] Comment on above: Performed By: #### C VDTBH #### [facility] [address] [place] [address] Dr. Obdulia Ng Monocytes/100 WBC (Bld) 7.7 % Normal 1.7-12.0 [facility] Comment on above: Performed By: #### C VDTBH #### [facility] [address] [place] [address] Dr. Obdulia Ng NEUT # 11.3 103/ul Critically high 1.4-6.5 [facility] Comment on above: Performed By: #### C VDTBH #### [facility] [address] [place] [address] Dr. Obdulia Ng Neutrophils/100 WBC (Bld) 87.8 % Critically high 43.0-75.0 [facility] Comment on above: Performed By: #### C VDTBH #### [facility] [address] [place] [address] Dr. Obdulia Ng Platelet mean volume (Bld) [Entitic vol] 10.2 fL Normal 9.5-13.5 [facility] Comment on above: Performed By: #### C VDTBH #### [facility] [address] [place] [address] Dr. Obdulia Ng PLT 262 103/ul Normal 150-450 [facility] Comment on above: Performed By: #### C VDTBH #### [facility] [address] [place] [address] Dr. Obdulia Ng RBC 4.20 106/ul Critically low 4.70-6.10 [facility] Comment on above: Performed By: #### C VDTBH #### [facility] [address] [place] [address] Dr. Obdulia Ng WBC 12.9 103/ul Critically high 4.0-11.0 [facility] Comment on above: Performed By: #### C VDTBH #### [facility] [address] [place] [address] Dr. Obdulia Ng CULTURE BLOODon 02-16-2022 Microscopic examination of blood, culture Culture Observations: NO GROWTH AT 5 DAYS. Normal [facility] Comment on above: Performed By: #### T SH, T4 #### [facility] [address] [place] [address] Dr. Obdulia Ng Microscopic examination of blood, culture Culture Observations: NO GROWTH AT 5 DAYS. Normal [facility] Comment on above: Performed By: #### T SH, T4 #### [facility] [address] [place] [address] Dr. Obdulia Ng CULTURE URINEon 02-16-2022 CULTURE URINE Culture Observations : NO GROWTH. Normal [facility] Comment on above: Performed By: #### T SH, T4 #### [facility] [address] [place] [address] Dr. Obdulia Ng Covid-19 PCR ([facility])on 01-22 SARS-CoV-2 (COVID-19) RNA SHELBY+probe Ql (Unsp spec) Detected Critically abnormal NOT DETECTED [facility] Comment on above: Result Comment: This test is not yet approved or cleared by the [place] FDA. When there are no FDA-approved or cleared tests available, and other criteria are met, FDA can make tests available under an emergency access mechanism called an Emergency Use Authorization (EUA). The EUA for this test is supported by the [employer] Operator of Health and Human Service's declaration that [...] used). Performed By: #### C BC #### [facility] [address] [place] [address] Dr. Obdulia Ng ER URINE PROFILEon 2 Bilirubin Ql (U) Negative Normal NEGATIVE [facility] Comment on above: Performed By: #### P OCGLUC #### [facility] [address] [place] [address] Dr. Obdulia Ng Clarity (U) SL CLOUDY Abnormal CLEAR [facility] Comment on above: Performed By: #### P OCGLUC #### [facility] [address] [place] [address] Dr. Obdulia Ng ERUAHD A micrscopic examina tion will be performed if indicated. Normal [facility] Comment on above: Performed By: #### P OCGLUC #### [facility] [address] [place] [address] Dr. Obdulia Ng Glucose Ql (U) Negative Normal NEGATIVE [facility] Comment on above: Performed By: #### P OCGLUC #### [facility] [address] [place] [address] Dr. Obdulia Ng Hemoglobin Ql (U) Negative Normal NEGATIVE [facility] Comment on above: Performed By: #### P OCGLUC #### [facility] [address] [place] [address] Dr. Obdulia Ng Ketones Ql (U) Negative Normal NEGATIVE [facility] Comment on above: Performed By: #### P OCGLUC #### [facility] [address] [address] [address] Obdulia Ng LEUKOCYTES TRACE Abnormal NEGATIVE [facility] Comment on above: Performed By: #### P OCGLUC #### [facility] [address] [place] [address] Dr. Obdulia Ng Nitrite Ql (U) Negative Normal NEGATIVE [facility] Comment on above: Performed By: #### P OCGLUC #### [facility] [address] [place] [address] Dr. Obdulia Ng pH (U) 5.5 [pH] Normal 5-9 [facility] Comment on above: Performed By: #### P OCGLUC #### [facility] [address] [place] [address] Dr. Obdulia Ng SPEC GRAVITY 1.015 Normal 1.005-<=1. 025 [facility] Comment on above: Performed By: #### P OCGLUC #### [facility] [address] [place] [address] Dr. Obdulia Ng UA PROTEIN Negative Normal NEGATIVE/ TRACE [facility] Comment on above: Performed By: #### P OCGLUC #### [facility] [address] [place] [address] Dr. Obdulia Ng UR MICRO IND INDICATED Normal [facility] Comment on above: Performed By: #### P OCGLUC #### [facility] [address] [place] [address] Dr. Obdulia Ng Urobilinogen Qn (U) 1.0 {Cachorro'U}/dL Normal 0.2 - 1.0 [facility] Comment on above: Performed By: #### P OCGLUC #### [facility] [address] [place] [address] Dr. Obdulia Ng LACTATE/LACTIC ACIDon 2021 Lactate [Moles/Vol] 1.7 mmol/L Normal 0.4-1.9 [facility] Comment on above: Performed By: #### P OCGLUC #### [facility] [address] [place] [address] Dr. Obdulia Ng Lactate [Moles/Vol] 2.7 mmol/L Critically high 0.4-1.9 [facility] Comment on above: Performed By: #### C BC #### [facility] [address] [place] [address] Dr. Obdulia Ng PH VENOUS BLOODon 02-16-2022 PCO2 VENOUS 40.5 mmHg Normal 40.0-52.0 [facility] Comment on above: Performed By: #### P TT, PT #### [facility] [address] [place] [address] Dr. Obdulia Ng pH VENOUS 7.368 Normal 7.330-7.43 0 [facility] Comment on above: Performed By: #### P TT, PT #### [facility] [address] [place] [address] Dr. Obdulia Ng POINT OF CARE GLUCOSEon 01-22 Glucose [Mass/Vol] 290 mg/dL Critically high 74-106 [facility] Comment on above: Performed By: #### C BC #### [facility] [address] [place] [address] Dr. Obdulia Ng PROF 14(COMP METB)on 022 Albumin [Mass/Vol] 3.5 g/dL Normal 3.4-5.0 [facility] Comment on above: Performed By: #### C BC #### [facility] [address] [place] [address] Dr. Obdulia Ng Albumin/Globulin [Mass ratio] 1.2 {ratio} Normal [facility] Comment on above: Performed By: #### C BC #### [facility] [address] [place] [address] Dr. Obdulia Ng ALP [Catalytic activity/Vol] 78 U/L Normal 46-116 [facility] Comment on above: Performed By: #### C BC #### [facility] [address] [place] [address] Dr. Obdulia Ng ALT [Catalytic activity/Vol] 48 U/L Normal 16-63 [facility] Comment on above: Performed By: #### C BC #### [facility] [address] [place] [address] Dr. Obdulia Ng Anion gap [Moles/Vol] 15.4 mmol/L Normal [facility] Comment on above: Performed By: #### C BC #### [facility] [address] [place] [address] Dr. Obdulia Ng AST [Catalytic activity/Vol] 24 U/L Normal 15-37 [facility] Comment on above: Performed By: #### C BC #### [facility] [address] [address] [address] Obdulia Ng Bilirubin [Mass/Vol] 1.6 mg/dL Critically high 0.2-1.0 [facility] Comment on above: Performed By: #### C BC #### [facility] [address] [address] [address] Obdulia Ng Calcium [Mass/Vol] 8.7 mg/dL Normal 8.5-10.1 [facility] Comment on above: Performed By: #### C BC #### [facility] [address] [address] [address] Obdulia Ng Chloride [Moles/Vol] 103 mmol/L Normal 98-107 [facility] Comment on above: Performed By: #### C BC #### [facility] [address] [place] [address] Dr. Obdulia Ng CO2 [Moles/Vol] 22.9 mmol/L Normal 21.0-32.0 [facility] Comment on above: Performed By: #### C BC #### [facility] [address] [place] [address] Dr. Obdulia Ng Creatinine [Mass/Vol] 1.34 mg/dL Critically high 0.70-1.30 [facility] Comment on above: Performed By: #### C BC #### [facility] [address] [place] [address] Dr. Obdulia Ng EGFR-AF TRINIDADIAN >60 Normal >=60 [facility] Comment on above: Performed By: #### C BC #### [facility] [address] [place] [address] Dr. Obdulia Ng EGFR-NON AF TRINIDADIAN 51 mL/min/1.73m2 Critically low >=60 [facility] Comment on above: Performed By: #### C BC #### [facility] [address] [place] [address] Dr. Obdulia Ng Globulin (S) [Mass/Vol] 2.9 g/dL Normal [facility] Comment on above: Performed By: #### C BC #### [facility] [address] [place] [address] Dr. Obdulia Ng Glucose [Mass/Vol] 181 mg/dL Critically high 74-106 [facility] Comment on above: Performed By: #### C BC #### [facility] [address] [address] [address] Obdulia Ng Potassium [Moles/Vol] 4.3 mmol/L Normal 3.5-5.1 [facility] Comment on above: Performed By: #### C BC #### [facility] [address] [address] [address] Obdulia Ng Protein [Mass/Vol] 6.4 g/dL Normal 6.4-8.2 [facility] Comment on above: Performed By: #### C BC #### [facility] [address] [address] [address] Obdulia Ng Sodium [Moles/Vol] 137 mmol/L Normal 136-145 [facility] Comment on above: Performed By: #### C BC #### [facility] [address] [address] [address] Obdulia Ng Urea nitrogen [Mass/Vol] 23.0 mg/dL Critically high 7.0-18.0 [facility] Comment on above: Performed By: #### C BC #### [facility] [address] [address] [address] Obdulia Ng Urea nitrogen/Creatini ne [Mass ratio] 17.2 mg/mg Normal [facility] Comment on above: Performed By: #### C BC #### [facility] [address] [address] [address] Obdulia Ng PROTIMEon 02-16-2022 INR Coag (PPP) [Relative time] 2.40 {INR} Normal [facility] Comment on above: Performed By: #### P OCGLUC #### [facility] [address] [address] [address] Obdulia Ng INR GUIDELINES SEE BELOW Normal [facility] Comment on above: Result Comment: BRAD RED INR: 2.0 - 3.0 CONDITIONS NOT LISTED BELOW 2.5 - 3.5 FOR PROSTHETIC HEART VALVE REPLACEMENT 2.5 - 3.5 RECURRENT THROMBOSIS Performed By: #### P OCGLUC #### [facility] [address] [place] [address] Dr. Obdulia Ng PT Coag (PPP) [Time] 24.5 s Critically high 9.0-11.6 [facility] Comment on above: Performed By: #### P OCGLUC #### [facility] [address] [place] [address] Dr. Obdulia Ng PTTon 02-16-2022 aPTT Coag (Bld) [Time] 31.4 s Normal 22.3-36.2 [facility] Comment on above: Performed By: #### P OCGLUC #### [facility] [address] [place] [address] Dr. Obdulia Ng TROPONIN, HIGH SENSITIVITYon 02-16-2022 HSTROP 18.2 pg/mL Normal 4.0-76.1 [facility] Comment on above: Result Comment: CUT- OFF POINTS HAVE BEEN ESTABLISHED BASED ON THE FOURTH UNIVERSAL DEFINITIONS OF MYOCARDIAL INFARCTION. THE UPPER REFERENCE LIMIT (URL) OF TROPONIN, DEFINED THE 99TH PERCENTILE OF cTnI DISTRIBUTION IN A REFERENCE POPULATION, HAS BEEN CONFIRMED THE DECISION THRESHOLD FOR [place] DIAGNOSIS. Performed By: #### C BC #### [facility] [address] [place] [address] Dr. Obdulia Ng URINE MICROSCOPIC ONLYon BACTERIA TRACE Abnormal NONE SEEN [facility] Comment on above: Performed By: #### P OCGLUC #### [facility] [address] [place] [address] Dr. Obdulia Ng Bacteria identified Cx Nom (U) INDICATED Normal [facility] Comment on above: Performed By: #### P OCGLUC #### [facility] [address] [place] [address] Dr. Obdulia Ng CAST NONE SEEN Normal NONE SEEN [facility] Comment on above: Performed By: #### P OCGLUC #### [facility] [address] [place] [address] Dr. Obdulia Ng Crystals LM Nom (Urine sed) NONE SEEN Normal NONE SEEN [facility] Comment on above: Performed By: #### P OCGLUC #### [facility] [address] [address] [address] Obdulia Ng Epithelial cells LM Ql (Urine sed) FEW Abnormal NONE SEEN /RARE [facility] Comment on above: Performed By: #### P OCGLUC #### [facility] [address] [address] [address] Obdulia Ng MUCOUS NONE SEEN Normal NONE SEEN [facility] Comment on above: Performed By: #### P OCGLUC #### [facility] [address] [address] [address] Obdulia Ng RBC NONE SEEN Abnormal 0-2 [facility] Comment on above: Performed By: #### P OCGLUC #### [facility] [address] [address] [address] Obdulia Ng WBC 2-5 Abnormal NONE SEEN [facility] Comment on above: Performed By: #### P OCGLUC #### [facility] [address] [place] [address] Dr. Obdulia Ng XR CHEST 1 Von [...] by: CHEPE ROLLINS Date: 2022-02-16 15:14 Normal [facility] Abstracton 01-30-2022 Abstract [id number] Joby Bergman 1940 M Date Provider Department Center 01/30/2022 Roberta-HUGO CORCORAN [facility] Family History Problem Relation Age of Onset Heart attack Father Family Status - Relation Status Age at Father Normal [facility] BNPon 12-24-2021 Natriuretic peptide B (Bld) [Mass/Vol] 8490.0 pg/mL Critically high <=1,800.0 [facility] Comment on above: Performed By: #### C BC #### [facility] [address] [place] [address] Dr. Obdulia Ng CBC AUTO DIFFon 12-24-2021 BASO # 0.1 103/ul Normal 0.0-0.1 [facility] Comment on above: Performed By: #### C BC #### [facility] [address] [place] [address] Dr. Obdulia Ng Basophils/100 WBC (Bld) 0.7 % Normal 0.2-2.0 [facility] Comment on above: Performed By: #### C BC #### [facility] [address] [place] [address] Dr. Obdulia Ng EO # 0.1 103/ul Normal 0.0-0.7 [facility] Comment on above: Performed By: #### C BC #### [facility] [address] [place] [address] Dr. Obdulia Ng Eosinophils/100 WBC (Bld) 0.8 % Critically low 0.9-7.0 [facility] Comment on above: Performed By: #### C BC #### [facility] [address] [place] [address] Dr. Obdulia Ng Erythrocyte distribution width (RBC) [Ratio] 13.2 % Normal 11.0-15.0 [facility] Comment on above: Performed By: #### C BC #### [facility] [address] [place] [address] Dr. Obdulia Ng Hematocrit (Bld) [Volume fraction] 38.7 % Critically low 42.0-54.0 [facility] Comment on above: Performed By: #### C BC #### [facility] [address] [place] [address] Dr. Obdulia Ng Hemoglobin (Bld) [Mass/Vol] 12.6 g/dL Critically low 14.0-18.0 [facility] Comment on above: Performed By: #### C BC #### [facility] [address] [place] [address] Dr. Obdulia Ng IG # 0.03 10e3/ul Normal 0.00-0.03 [facility] Comment on above: Performed By: #### C BC #### [facility] [address] [place] [address] Dr. Obdulia Ng IG % 0.3 % Normal 0.0-0.5 [facility] Comment on above: Performed By: #### C BC #### [facility] [address] [place] [address] Dr. Obdulia Ng LYMPH # 1.7 103/ul Normal 1.2-3.8 [facility] Comment on above: Performed By: #### C BC #### [facility] [address] [place] [address] Dr. Obdulia Ng Lymphocytes/100 WBC (Bld) 18.9 % Critically low 20.5-60.0 [facility] Comment on above: Performed By: #### C BC #### [facility] [address] [place] [address] Dr. Obdulia Ng MANUAL DIFF REQ NO Normal [facility] Comment on above: Performed By: #### C BC #### [facility] [address] [place] [address] Dr. Obdulia Ng MCH (RBC) [Entitic mass] 31.3 pg Normal 25.9-34.0 [facility] Comment on above: Performed By: #### C BC #### [facility] [address] [place] [address] Dr. Obdulia Ng MCHC (RBC) [Mass/Vol] 32.6 g/dL Normal 29.9-35.2 [facility] Comment on above: Performed By: #### C BC #### [facility] [address] [place] [address] Dr. Obdulia Ng MCV (RBC) [Entitic vol] 96.0 fL Critically high 80.0-94.0 [facility] Comment on above: Performed By: #### C BC #### [facility] [address] [place] [address] Dr. Obdulia Ng MONO # 0.8 103/ul Normal 0.3-0.8 [facility] Comment on above: Performed By: #### C BC #### [facility] [address] [place] [address] Dr. Obdulia Ng Monocytes/100 WBC (Bld) 9.0 % Normal 1.7-12.0 [facility] Comment on above: Performed By: #### C BC #### [facility] [address] [place] [address] Dr. Obdulia Ng NEUT # 6.1 103/ul Normal 1.4-6.5 [facility] Comment on above: Performed By: #### C BC #### [facility] [address] [place] [address] Dr. Obdulia Ng Neutrophils/100 WBC (Bld) 70.3 % Normal 43.0-75.0 [facility] Comment on above: Performed By: #### C BC #### [facility] [address] [place] [address] Dr. Obdulia Ng Platelet mean volume (Bld) [Entitic vol] 9.5 fL Normal 9.5-13.5 [facility] Comment on above: Performed By: #### C BC #### [facility] [address] [place] [address] Dr. Obdulia Ng PLT 307 103/ul Normal 150-450 [facility] Comment on above: Performed By: #### C BC #### [facility] [address] [place] [address] Dr. Obdulia Ng RBC 4.03 106/ul Critically low 4.70-6.10 [facility] Comment on above: Performed By: #### C BC #### [facility] [address] [place] [address] Dr. Obdulia Ng WBC 8.7 103/ul Normal 4.0-11.0 [facility] Comment on above: Performed By: #### C BC #### [facility] [address] [place] [address] Dr. Obdulia Ng PROF 14(COMP METB)on 022 Albumin [Mass/Vol] 3.3 g/dL Critically low 3.4-5.0 [facility] Comment on above: Performed By: #### C BC #### [facility] [address] [place] [address] Dr. Obdulia Ng Albumin/Globulin [Mass ratio] 1.1 {ratio} Normal [facility] Comment on above: Performed By: #### C BC #### [facility] [address] [place] [address] Dr. Obdulia Ng ALP [Catalytic activity/Vol] 74 U/L Normal 46-116 [facility] Comment on above: Performed By: #### C BC #### [facility] [address] [place] [address] Dr. Obdulia Ng ALT [Catalytic activity/Vol] 51 U/L Normal 16-63 [facility] Comment on above: Performed By: #### C BC #### [facility] [address] [place] [address] Dr. Obdulia Ng Anion gap [Moles/Vol] 12.8 mmol/L Normal [facility] Comment on above: Performed By: #### C BC #### [facility] [address] [place] [address] Dr. Obdulia Ng AST [Catalytic activity/Vol] 24 U/L Normal 15-37 [facility] Comment on above: Performed By: #### C BC #### [facility] [address] [place] [address] Dr. Obdulia Ng Bilirubin [Mass/Vol] 1.1 mg/dL Critically high 0.2-1.0 [facility] Comment on above: Performed By: #### C BC #### [facility] [address] [place] [address] Dr. Obdulia Ng Calcium [Mass/Vol] 8.7 mg/dL Normal 8.5-10.1 [facility] Comment on above: Performed By: #### C BC #### [facility] [address] [place] [address] Dr. Obdulia Ng Chloride [Moles/Vol] 103 mmol/L Normal 98-107 [facility] Comment on above: Performed By: #### C BC #### [facility] [address] [address] [address] Obdulia Ng CO2 [Moles/Vol] 29.8 mmol/L Normal 21.0-32.0 [facility] Comment on above: Performed By: #### C BC #### [facility] [address] [address] [address] Obdulia Ng Creatinine [Mass/Vol] 1.22 mg/dL Normal 0.70-1.30 [facility] Comment on above: Performed By: #### C BC #### [facility] [address] [place] [address] Dr. Obdulia Ng EGFR-AF TRINIDADIAN >60 Normal >=60 [facility] Comment on above: Performed By: #### C BC #### [facility] [address] [place] [address] Dr. Obdulia Ng EGFR-NON AF TRINIDADIAN 57 mL/min/1.73m2 Critically low >=60 [facility] Comment on above: Performed By: #### C BC #### [facility] [address] [place] [address] Dr. Obdulia Ng Globulin (S) [Mass/Vol] 3.1 g/dL Normal [facility] Comment on above: Performed By: #### C BC #### [facility] [address] [place] [address] Dr. Obdulia Ng Glucose [Mass/Vol] 104 mg/dL Normal 74-106 [facility] Comment on above: Performed By: #### C BC #### [facility] [address] [place] [address] Dr. Obdulia Ng Potassium [Moles/Vol] 3.6 mmol/L Normal 3.5-5.1 [facility] Comment on above: Performed By: #### C BC #### [facility] [address] [place] [address] Dr. Obdulia Ng Protein [Mass/Vol] 6.4 g/dL Normal 6.4-8.2 [facility] Comment on above: Performed By: #### C BC #### [facility] [address] [place] [address] Dr. Obdulia Ng Sodium [Moles/Vol] 142 mmol/L Normal 136-145 [facility] Comment on above: Performed By: #### C BC #### [facility] [address] [place] [address] Dr. Obdulia Ng Urea nitrogen [Mass/Vol] 20.0 mg/dL Critically high 7.0-18.0 [facility] Comment on above: Performed By: #### C BC #### [facility] [address] [place] [address] Dr. Obdulia Ng Urea nitrogen/Creatini ne [Mass ratio] 16.4 mg/mg Normal [facility] Comment on above: Performed By: #### C BC #### [facility] [address] [place] [address] Dr. Obdulia Ng T3, TOTAL (TRIIODOTHYRONINE) on 12-24-2021 T3, TOTAL 94 ng/dL Normal 71-180 [facility] Comment on above: Performed By: #### P TT, PT #### [facility] [address] [place] [address] Dr. Obdulia Ng BNPon 2021 Natriuretic peptide B (Bld) [Mass/Vol] 6998.0 pg/mL Critically high <=1,800.0 [facility] Comment on above: Performed By: #### P OCGLUC #### [facility] [address] [place] [address] Dr. Obdulia Ng CARDIAC MARIPOSA 3-6on 2 CK [Catalytic activity/Vol] 86 U/L Normal 39-308 [facility] Comment on above: Performed By: #### P TT, PT #### [facility] [address] [place] [address] Dr. Obdulia Ng CK.MB [Mass/Vol] 2.13 ng/mL Normal <=3.60 [facility] Comment on above: Performed By: #### P TT, PT #### [facility] [address] [place] [address] Dr. Obdulia Ng HSTROP 14.4 pg/mL Normal 4.0-76.1 [facility] Comment on above: Result Comment: CUT- OFF POINTS HAVE BEEN ESTABLISHED BASED ON THE FOURTH UNIVERSAL DEFINITIONS OF MYOCARDIAL INFARCTION. THE UPPER REFERENCE LIMIT (URL) OF TROPONIN, DEFINED THE 99TH PERCENTILE OF cTnI DISTRIBUTION IN A REFERENCE POPULATION, HAS BEEN CONFIRMED THE DECISION THRESHOLD FOR TN DIAGNOSIS. Performed By: #### P TT, PT #### [facility] [address] [place] [address] Dr. Obdulia Ng CK [Catalytic activity/Vol] 84 U/L Normal 39-308 [facility] Comment on above: Performed By: #### P OCGLUC #### [facility] [address] [place] [address] Dr. Obdulia Ng CK.MB [Mass/Vol] 2.16 ng/mL Normal <=3.60 [facility] Comment on above: Performed By: #### P OCGLUC #### [facility] [address] [place] [address] Dr. Obdulia Ng HSTROP 15.8 pg/mL Normal 4.0-76.1 [facility] Comment on above: Result Comment: CUT- OFF POINTS HAVE BEEN ESTABLISHED BASED ON THE FOURTH UNIVERSAL DEFINITIONS OF MYOCARDIAL INFARCTION. THE UPPER REFERENCE LIMIT (URL) OF TROPONIN, DEFINED THE 99TH PERCENTILE OF cTnI DISTRIBUTION IN A REFERENCE POPULATION, HAS BEEN CONFIRMED THE DECISION THRESHOLD FOR TN DIAGNOSIS. Performed By: #### P OCGLUC #### [facility] [address] [place] [address] Dr. Obdulia Ng CBC AUTO DIFFon 2021 BASO # 0.0 103/ul Normal 0.0-0.1 [facility] Comment on above: Performed By: #### C BC #### [facility] [address] [place] [address] Dr. Obdulia Ng Basophils/100 WBC (Bld) 0.4 % Normal 0.2-2.0 [facility] Comment on above: Performed By: #### C BC #### [facility] [address] [place] [address] Dr. Obdulia Ng EO # 0.0 103/ul Normal 0.0-0.7 [facility] Comment on above: Performed By: #### C BC #### [facility] [address] [address] [address] Obdulia Ng Eosinophils/100 WBC (Bld) 0.2 % Critically low 0.9-7.0 [facility] Comment on above: Performed By: #### C BC #### [facility] [address] [place] [address] Dr. Obdulia Ng Erythrocyte distribution width (RBC) [Ratio] 13.2 % Normal 11.0-15.0 [facility] Comment on above: Performed By: #### C BC #### [facility] [address] [place] [address] Dr. Obdulia Ng Hematocrit (Bld) [Volume fraction] 35.1 % Critically low 42.0-54.0 [facility] Comment on above: Performed By: #### C BC #### [facility] [address] [place] [address] Dr. Obdulia Ng Hemoglobin (Bld) [Mass/Vol] 11.6 g/dL Critically low 14.0-18.0 [facility] Comment on above: Performed By: #### C BC #### [facility] [address] [place] [address] Dr. Obdulia Ng IG # 0.04 10e3/ul Critically high 0.00-0.03 [facility] Comment on above: Performed By: #### C BC #### [facility] [address] [place] [address] Dr. Obdulia Ng IG % 0.4 % Normal 0.0-0.5 [facility] Comment on above: Performed By: #### C BC #### [facility] [address] [place] [address] Dr. Obdulia Ng LYMPH # 0.7 103/ul Critically low 1.2-3.8 [facility] Comment on above: Performed By: #### C BC #### [facility] [address] [place] [address] Dr. Obdulia Ng Lymphocytes/100 WBC (Bld) 6.9 % Critically low 20.5-60.0 [facility] Comment on above: Performed By: #### C BC #### [facility] [address] [place] [address] Dr. Obdulia Ng MANUAL DIFF REQ NO Normal [facility] Comment on above: Performed By: #### C BC #### [facility] [address] [place] [address] Dr. Obdulia Ng MCH (RBC) [Entitic mass] 31.6 pg Normal 25.9-34.0 [facility] Comment on above: Performed By: #### C BC #### [facility] [address] [place] [address] Dr. Obdulia Ng MCHC (RBC) [Mass/Vol] 33.0 g/dL Normal 29.9-35.2 [facility] Comment on above: Performed By: #### C BC #### [facility] [address] [place] [address] Dr. Obdulia Ng MCV (RBC) [Entitic vol] 95.6 fL Critically high 80.0-94.0 [facility] Comment on above: Performed By: #### C BC #### [facility] [address] [place] [address] Dr. Obdulia Ng MONO # 0.6 103/ul Normal 0.3-0.8 [facility] Comment on above: Performed By: #### C BC #### [facility] [address] [place] [address] Dr. Obdulia Ng Monocytes/100 WBC (Bld) 5.7 % Normal 1.7-12.0 [facility] Comment on above: Performed By: #### C BC #### [facility] [address] [place] [address] Dr. Obdulia Ng NEUT # 8.8 103/ul Critically high 1.4-6.5 [facility] Comment on above: Performed By: #### C BC #### [facility] [address] [place] [address] Dr. Obdulia Ng Neutrophils/100 WBC (Bld) 86.4 % Critically high 43.0-75.0 [facility] Comment on above: Performed By: #### C BC #### [facility] [address] [address] [address] Obdulia Ng Platelet mean volume (Bld) [Entitic vol] 9.2 fL Critically low 9.5-13.5 [facility] Comment on above: Performed By: #### C BC #### [facility] [address] [address] [address] Obdulia Ng PLT 268 103/ul Normal 150-450 [facility] Comment on above: Performed By: #### C BC #### [facility] [address] [address] [address] Obdulia Ng RBC 3.67 106/ul Critically low 4.70-6.10 [facility] Comment on above: Performed By: #### C BC #### [facility] [address] [place] [address] Dr. Obdulia Ng WBC 10.2 103/ul Normal 4.0-11.0 [facility] Comment on above: Performed By: #### C BC #### [facility] [address] [place] [address] Dr. Obdulia Ng CULTURE URINEon 2021 CULTURE URINE Culture Observations : NO GROWTH. Normal [facility] Comment on above: Performed By: #### T SH, T4 #### [facility] [address] [place] [address] Dr. Obdulia Ng Covid-19 PCR (CVDTB)on SARS-CoV-2 (COVID-19) RNA SHELBY+probe Ql (Unsp spec) Not detected Normal NOT DETECTED [facility] Comment on above: Result Comment: [...] for this test is supported by the [place] of Health and Human Service's declaration that [...] used). Performed By: #### P OCGLUC #### [facility] [address] [place] [address] Dr. Obdulia Ng ECHOCARDIO M/2D COMPLETEon 0 2021 ECHOCARDIO M/2D COMPLETE Patient: ELVIRA BERGMAN Exam Date: 2021 : 1940 Gender:M Ordering : DR BRIDGET FARLEY . Admission #: [id number] Family : Order #: [id number] CLICK HERE TO VIEW EXAM ECHOCARDIOGRAM REPORT [...] M.D. on 2021 at 17:33 Normal [facility] POINT OF CARE GLUCOSEon 08-0 Glucose [Mass/Vol] 116 mg/dL Critically high 74-106 [facility] Comment on above: Performed By: #### C BC #### [facility] [address] [address] [address] Obdulia Ng Glucose [Mass/Vol] 233 mg/dL Critically high 74-106 [facility] Comment on above: Performed By: #### P OCGLUC #### [facility] [address] [address] [address] Obdulia Ng PROF CHEM 8 (BAS METB)on Anion gap [Moles/Vol] 14.5 mmol/L Normal [facility] Comment on above: Performed By: #### P OCGLUC #### [facility] [address] [address] [address] Obdulia Ng Calcium [Mass/Vol] 8.5 mg/dL Normal 8.5-10.1 [facility] Comment on above: Performed By: #### P OCGLUC #### [facility] [address] [address] [address] Obdulia Ng Chloride [Moles/Vol] 105 mmol/L Normal 98-107 [facility] Comment on above: Performed By: #### P OCGLUC #### [facility] [address] [address] [address] Obdulia Ng CO2 [Moles/Vol] 23.8 mmol/L Normal 21.0-32.0 [facility] Comment on above: Performed By: #### P OCGLUC #### [facility] [address] [address] [address] Obdulia Ng Creatinine [Mass/Vol] 1.08 mg/dL Normal 0.70-1.30 [facility] Comment on above: Performed By: #### P OCGLUC #### [facility] [address] [address] [address] Obdulia Ng EGFR-AF TRINIDADIAN >60 Normal >=60 [facility] Comment on above: Performed By: #### P OCGLUC #### [facility] [address] [address] [address] Obdulia Ng EGFR-NON AF TRINIDADIAN >60 Normal >=60 [facility] Comment on above: Performed By: #### P OCGLUC #### [facility] [address] [address] [address] Obdulia Ng Glucose [Mass/Vol] 172 mg/dL Critically high 74-106 [facility] Comment on above: Performed By: #### P OCGLUC #### [facility] [address] [address] [address] Obdulia Ng Potassium [Moles/Vol] 4.3 mmol/L Normal 3.5-5.1 [facility] Comment on above: Performed By: #### P OCGLUC #### [facility] [address] [address] [address] Obdulia Ng Sodium [Moles/Vol] 139 mmol/L Normal 136-145 [facility] Comment on above: Performed By: #### P OCGLUC #### [facility] [address] [address] [address] Obdulia Ng Urea nitrogen [Mass/Vol] 17.0 mg/dL Normal 7.0-18.0 [facility] Comment on above: Performed By: #### P OCGLUC #### [facility] [address] [address] [address] Obdulia Ng Urea nitrogen/Creatini ne [Mass ratio] 15.7 mg/mg Normal [facility] Comment on above: Performed By: #### P OCGLUC #### [facility] [address] [address] [address] Obdulia Ng T4on 2021 T4 [Mass/Vol] 7.50 ug/dL Normal 4.50-12.10 [facility] Comment on above: Performed By: #### T SH, T4 #### [facility] [address] [place] [address] Dr. Obdulia Ng TROPONIN, HIGH SENSITIVITYon 2021 HSTROP 15.3 pg/mL Normal 4.0-76.1 [facility] Comment on above: Result Comment: CUT- OFF POINTS HAVE BEEN ESTABLISHED BASED ON THE FOURTH UNIVERSAL DEFINITIONS OF MYOCARDIAL INFARCTION. THE UPPER REFERENCE LIMIT (URL) OF TROPONIN, DEFINED THE 99TH PERCENTILE OF cTnI DISTRIBUTION IN A REFERENCE POPULATION, HAS BEEN CONFIRMED THE DECISION THRESHOLD FOR TN DIAGNOSIS. Performed By: #### P OCGLUC #### [facility] [address] [place] [address] Dr. Obdulia Ng TSHon 2021 TSH 0.904 uIU/mL Normal 0.358-3.74 0 [facility] Comment on above: Performed By: #### T SH, T4 #### [facility] [address] [place] [address] Dr. Obdulia Ng UA RANDOM W/MICROSCOPICon BACTERIA NONE SEEN Normal NONE SEEN [facility] Comment on above: Performed By: #### T SH, T4 #### [facility] [address] [place] [address] Dr. Obdulia Ng Bilirubin Ql (U) Negative Normal NEGATIVE [facility] Comment on above: Performed By: #### T SH, T4 #### [facility] [address] [place] [address] Dr. Obdulia Ng CAST NONE SEEN Normal NONE SEEN [facility] Comment on above: Performed By: #### T SH, T4 #### [facility] [address] [place] [address] Dr. Obdulia Ng Clarity (U) CLEAR Normal CLEAR [facility] Comment on above: Performed By: #### T SH, T4 #### [facility] [address] [place] [address] Dr. Obdulia Ng Color (U) LT. YELLOW Normal YELLOW [facility] Comment on above: Performed By: #### T SH, T4 #### [facility] [address] [place] [address] Dr. Obdulia Ng Crystals LM Nom (Urine sed) NONE SEEN Normal NONE SEEN [facility] Comment on above: Performed By: #### T SH, T4 #### [facility] [address] [place] [address] Dr. Obdulia Ng Epithelial cells LM Ql (Urine sed) NONE SEEN Normal NONE SEEN /RARE [facility] Comment on above: Performed By: #### T SH, T4 #### [facility] [address] [place] [address] Dr. Obdulia Ng Glucose Ql (U) Negative Normal NEGATIVE [facility] Comment on above: Performed By: #### T SH, T4 #### [facility] [address] [place] [address] Dr. Obdulia Ng Hemoglobin Ql (U) Negative Normal NEGATIVE [facility] Comment on above: Performed By: #### T SH, T4 #### [facility] [address] [place] [address] Dr. Obdulia Ng Ketones Ql (U) Negative Normal NEGATIVE [facility] Comment on above: Performed By: #### T SH, T4 #### [facility] [address] [place] [address] Dr. Obdulia Ng LEUKOCYTES Negative Normal NEGATIVE [facility] Comment on above: Performed By: #### T SH, T4 #### [facility] [address] [place] [address] Dr. Obdulia Ng MUCOUS NONE SEEN Normal NONE SEEN [facility] Comment on above: Performed By: #### T SH, T4 #### [facility] [address] [place] [address] Dr. Obdulia Ng Nitrite Ql (U) Negative Normal NEGATIVE [facility] Comment on above: Performed By: #### T SH, T4 #### [facility] [address] [place] [address] Dr. Obdulia Ng pH (U) 6.0 [pH] Normal 5-9 [facility] Comment on above: Performed By: #### T SH, T4 #### [facility] [address] [place] [address] Dr. Obdulia Ng RBC NONE SEEN Abnormal 0-2 [facility] Comment on above: Performed By: #### T SH, T4 #### [facility] [address] [address] [address] Obdulia Ng SPEC GRAVITY 1.010 Normal 1.005-<=1. 025 [facility] Comment on above: Performed By: #### T SH, T4 #### [facility] [address] [address] [address] Obdulia Ng UA PROTEIN Negative Normal NEGATIVE/ TRACE [facility] Comment on above: Performed By: #### T SH, T4 #### [facility] [address] [address] [address] Obdulia Ng Urobilinogen Qn (U) 1.0 {Cachorro'U}/dL Normal 0.2 - 1.0 [facility] Comment on above: Performed By: #### T SH, T4 #### [facility] [address] [place] [address] Dr. Obdulia Ng WBC NONE SEEN Normal NONE SEEN [facility] Comment on above: Performed By: #### T SH, T4 #### [facility] [address] [place] [address] Dr. Obdulia Ng XR CHEST 1 Von [...] BROOKS STEPHENSON Date: 2021 11:26 Normal [facility] CBC AUTO DIFFon 11-17-2021 BASO # 0.0 103/ul Normal 0.0-0.1 [facility] Comment on above: Performed By: #### P OCGLUC #### [facility] [address] [address] [address] Obdulia Ng Basophils/100 WBC (Bld) 0.3 % Normal 0.2-2.0 [facility] Comment on above: Performed By: #### P OCGLUC #### [facility] [address] [address] [address] Obdulia Ng EO # 0.0 103/ul Normal 0.0-0.7 [facility] Comment on above: Performed By: #### P OCGLUC #### [facility] [address] [address] [address] Obdulia Ng Eosinophils/100 WBC (Bld) 0.1 % Critically low 0.9-7.0 [facility] Comment on above: Performed By: #### P OCGLUC #### [facility] [address] [place] [address] Dr. Obdulia Ng Erythrocyte distribution width (RBC) [Ratio] 12.9 % Normal 11.0-15.0 [facility] Comment on above: Performed By: #### P OCGLUC #### [facility] [address] [place] [address] Dr. Obdulia Ng Hematocrit (Bld) [Volume fraction] 38.4 % Critically low 42.0-54.0 [facility] Comment on above: Performed By: #### P OCGLUC #### [facility] [address] [place] [address] Dr. Obdulia Ng Hemoglobin (Bld) [Mass/Vol] 12.7 g/dL Critically low 14.0-18.0 [facility] Comment on above: Performed By: #### P OCGLUC #### [facility] [address] [place] [address] Dr. Obdulia Ng IG # 0.03 10e3/ul Normal 0.00-0.03 [facility] Comment on above: Performed By: #### P OCGLUC #### [facility] [address] [place] [address] Dr. Obdulia Ng IG % 0.3 % Normal 0.0-0.5 [facility] Comment on above: Performed By: #### P OCGLUC #### [facility] [address] [address] [address] Obdulia Ng LYMPH # 0.8 103/ul Critically low 1.2-3.8 [facility] Comment on above: Performed By: #### P OCGLUC #### [facility] [address] [address] [address] Obdulia Ng Lymphocytes/100 WBC (Bld) 7.2 % Critically low 20.5-60.0 [facility] Comment on above: Performed By: #### P OCGLUC #### [facility] [address] [address] [address] Obdulia Ng MANUAL DIFF REQ NO Normal [facility] Comment on above: Performed By: #### P OCGLUC #### [facility] [address] [address] [address] Obdulia Ng MCH (RBC) [Entitic mass] 32.2 pg Normal 25.9-34.0 [facility] Comment on above: Performed By: #### P OCGLUC #### [facility] [address] [address] [address] Obdulia Ng MCHC (RBC) [Mass/Vol] 33.1 g/dL Normal 29.9-35.2 [facility] Comment on above: Performed By: #### P OCGLUC #### [facility] [address] [address] [address] Obdulia Ng MCV (RBC) [Entitic vol] 97.5 fL Critically high 80.0-94.0 [facility] Comment on above: Performed By: #### P OCGLUC #### [facility] [address] [address] [address] Obdulia Ng MONO # 1.0 103/ul Critically high 0.3-0.8 [facility] Comment on above: Performed By: #### P OCGLUC #### [facility] [address] [address] [address] Obdulia Ng Monocytes/100 WBC (Bld) 9.9 % Normal 1.7-12.0 [facility] Comment on above: Performed By: #### P OCGLUC #### [facility] [address] [address] [address] Obdulia Ng NEUT # 8.6 103/ul Critically high 1.4-6.5 [facility] Comment on above: Performed By: #### P OCGLUC #### [facility] [address] [address] [address] Obdulia Ng Neutrophils/100 WBC (Bld) 82.2 % Critically high 43.0-75.0 [facility] Comment on above: Performed By: #### P OCGLUC #### [facility] [address] [address] [address] Obdulia Ng Platelet mean volume (Bld) [Entitic vol] 10.3 fL Normal 9.5-13.5 [facility] Comment on above: Performed By: #### P OCGLUC #### [facility] [address] [address] [address] Obdulia Ng PLT 202 103/ul Normal 150-450 [facility] Comment on above: Performed By: #### P OCGLUC #### [facility] [address] [address] [address] Obdulia Ng RBC 3.94 106/ul Critically low 4.70-6.10 [facility] Comment on above: Performed By: #### P OCGLUC #### [facility] [address] [address] [address] Obdulia Ng WBC 10.4 103/ul Normal 4.0-11.0 [facility] Comment on above: Performed By: #### P OCGLUC #### [facility] [address] [address] [address] Obdulia Ng PROF CHEM 8 (BAS METB)on Anion gap [Moles/Vol] 12.9 mmol/L Normal [facility] Comment on above: Performed By: #### T SH, T4 #### [facility] [address] [address] [address] Obdulia Ng Calcium [Mass/Vol] 8.6 mg/dL Normal 8.5-10.1 [facility] Comment on above: Performed By: #### T SH, T4 #### [facility] [address] [place] [address] Dr. Obdulia Ng Chloride [Moles/Vol] 102 mmol/L Normal 98-107 [facility] Comment on above: Performed By: #### T SH, T4 #### [facility] [address] [place] [address] Dr. Obdulia Ng CO2 [Moles/Vol] 25.8 mmol/L Normal 21.0-32.0 [facility] Comment on above: Performed By: #### T SH, T4 #### [facility] [address] [place] [address] Dr. Obdulia Ng Creatinine [Mass/Vol] 1.03 mg/dL Normal 0.70-1.30 [facility] Comment on above: Performed By: #### T SH, T4 #### [facility] [address] [place] [address] Dr. Obdulia Ng EGFR-AF TRINIDADIAN >60 Normal >=60 [facility] Comment on above: Performed By: #### T SH, T4 #### [facility] [address] [place] [address] Dr. Obdulia Ng EGFR-NON AF TRINIDADIAN >60 Normal >=60 [facility] Comment on above: Performed By: #### T SH, T4 #### [facility] [address] [place] [address] Dr. Obdulia Ng Glucose [Mass/Vol] 164 mg/dL Critically high 74-106 [facility] Comment on above: Performed By: #### T SH, T4 #### [facility] [address] [place] [address] Dr. Obdulia Ng Potassium [Moles/Vol] 3.7 mmol/L Normal 3.5-5.1 [facility] Comment on above: Performed By: #### T SH, T4 #### [facility] [address] [place] [address] Dr. Obdulia Ng Sodium [Moles/Vol] 137 mmol/L Normal 136-145 [facility] Comment on above: Performed By: #### T SH, T4 #### [facility] [address] [address] [address] Obdulia Ng Urea nitrogen [Mass/Vol] 15.0 mg/dL Normal 7.0-18.0 [facility] Comment on above: Performed By: #### T SH, T4 #### [facility] [address] [address] [address] Obdulia Ng Urea nitrogen/Creatini ne [Mass ratio] 14.6 mg/mg Normal [facility] Comment on above: Performed By: #### T SH, T4 #### [facility] [address] [address] [address] Obdulia Ng TROPONIN, HIGH SENSITIVITYon 11-17-2021 HSTROP 16.2 pg/mL Normal 4.0-76.1 [facility] Comment on above: Result Comment: CUT- OFF POINTS HAVE BEEN ESTABLISHED BASED ON THE FOURTH UNIVERSAL DEFINITIONS OF MYOCARDIAL INFARCTION. THE UPPER REFERENCE LIMIT (URL) OF TROPONIN, DEFINED THE 99TH PERCENTILE OF cTnI DISTRIBUTION IN A REFERENCE POPULATION, HAS BEEN CONFIRMED THE DECISION THRESHOLD FOR [place] DIAGNOSIS. Performed By: #### T SH, T4 #### [facility] [address] [place] [address] Dr. Obdulia Ng XR CHEST 1 Von [...] MONTES DE OCA Date: 2021-11-17 09:11 Normal [facility] Discharge Summaryon 02-16-20 17 Discharge Summary MR#: [id number] sukhdeep [facility] Pt. Name: Elvira Bergman Admitted: 02/11/2017 [...] acute ST-elevationMI. He was flown in from [facility] for emergency cath. His LADwas [...] Dict: 02/14/2017/03:49 P/Xin Hernandez Trans: 02/14/2017 10:56 P/Jimy_JN:[id number]: Bridget Farley M.D. [address] [place] [address] Normal [facility] BNP (B-TYPE NATRIURETIC PEPT LEANDER)on 02-12-2017 BNP 211 pg/mL High 0-100 [facility] Comment on above: Order Comment: No: D o not add to previous draw Result Comment: Give n the appropriate clinical setting a BNP result of >100 pg/mLindicates congestive heart failure. Performed By: #### 8 5123, 52958 ####[facility] [place] [address], [facility] CBC W/DIFFon 02-12-2017 Basophils Auto #/vol (Bld) 1.2 % Normal 0.0-2.0 [facility] Comment on above: Order Comment: No: D o not add to previous draw Performed By: #### 5 0103 ####[facility] [place] [address], [facility] Eosinophils/100 leukocytes 0.3 % Normal 0.0-5.0 [facility] Comment on above: Order Comment: No: D o not add to previous draw Performed By: #### 5 0103 ####[facility] [place] [address], [facility] Erythrocyte distribution width Auto Ratio (RBC) 12.9 % Normal 11.5-16.9 [facility] Comment on above: Order Comment: No: D o not add to previous draw Performed By: #### 5 0103 ####[facility] [place] [address], [facility] Erythrocytes (RBC) 3.94 mill/mm3 Low 4.30-5.90 [facility] Comment on above: Order Comment: No: D o not add to previous draw Performed By: #### 5 0103 ####[facility], [place] [address] Hematocrit (HCT) 37.7 % Low 39.0-55.0 [facility] Comment on above: Order Comment: No: D o not add to previous draw Performed By: #### 5 0103 ####[facility] Hemoglobin mass conc (Bld) 12.9 g/dL Low 13.9-16.3 [facility] Comment on above: Order Comment: No: D o not add to previous draw Performed By: #### 5 0103 ####[facility] Lymphocytes/100 leukocytes 15.3 % Low 20.0-40.0 [facility] Comment on above: Order Comment: No: D o not add to previous draw Performed By: #### 5 0103 ####[facility] [facility].[address] MCH 32.6 pg High 24.0-32.0 [facility] Comment on above: Order Comment: No: D o not add to previous draw Performed By: #### 5 0103 ####[facility]3000 [facility].[address] MCHC mass conc (RBC) 34.1 g/dL Normal 32.0-36.0 [facility] Comment on above: Order Comment: No: D o not add to previous draw Performed By: #### 5 0103 ####[facility] [facility].[address] MCV 95.7 fL Normal 80.0-100.0 [facility] Comment on above: Order Comment: No: D o not add to previous draw Performed By: #### 5 0103 ####[facility] METHOD Normal RBC Morphology Normal [facility] Comment on above: Order Comment: No: D o not add to previous draw Performed By: #### 5 0103 ####[facility] [place] [address], [facility] MONOS 12.2 % High 2-8 [facility] Comment on above: Order Comment: No: D o not add to previous draw Performed By: #### 5 0103 ####[facility] [place] [address], [facility] Neutrophils/100 leukocytes 71.0 % High 50-70 [facility] Comment on above: Order Comment: No: D o not add to previous draw Performed By: #### 5 0103 ####[facility] [place] [address], [facility] PLAT CNT 276 Thou/mm3 Normal 100-400 [facility] Comment on above: Order Comment: No: D o not add to previous draw Performed By: #### 5 0103 ####[facility] WBC (Leukocytes) 9.6 Thou/mm3 Normal 4.0-10.0 [facility] Comment on above: Order Comment: No: D o not add to previous draw Performed By: #### 5 0103 ####[facility] [facility] [place] [address], [facility] COMP METABOLIC PANELon 02-12 Alanine aminotransferase (ALT) 11 U/L Normal 7-52 [facility] Comment on above: Order Comment: No: D o not add to previous draw Performed By: #### 4 1000, 65525, 12775, 66243, 49953, 01300 ####[facility] [place] [address], [facility] Albumin 3.2 g/dL Low 3.5-5.7 [facility] Comment on above: Order Comment: No: D o not add to previous draw Performed By: #### 4 1000, 69167, 51123, 62609, 85366, 46207 ####[facility] [place] [address], [facility] ALKALINE PHOSPH 49 IU/L Normal 34-104 [facility] Comment on above: Order Comment: No: D o not add to previous draw Performed By: #### 4 1000, 71666, 32103, 65550, 32262, 85167 ####[facility] [place] [address], [facility] Aspartate aminotransferase (AST) 9 U/L Low 13-39 [facility] Comment on above: Order Comment: No: D o not add to previous draw Performed By: #### 4 1000, 82083, 38160, 95046, 06169, 22091 ####[facility] [place] [address], [facility] Bilirubin (total) 0.6 mg/dL Normal 0.3-1.0 [facility] Comment on above: Order Comment: No: D o not add to previous draw Performed By: #### 4 1000, 35073, 63146, 38814, 76466, 35694 ####[facility] [place] [address], [facility] Calcium 8.5 mg/dL Low 8.6-10.3 [facility] Comment on above: Order Comment: No: D o not add to previous draw Performed By: #### 4 1000, 98561, 04030, 92649, 31481, 96696 ####[facility] [place] [address], [place] Chloride 106 mmol/L Normal 98-107 [facility] Comment on above: Order Comment: No: D o not add to previous draw Performed By: #### 4 1000, 82265, 40196, 08593, 33561, 58502 ####[facility] [place] [address], [place] CO2 24 mmol/L Normal 21-31 [facility] Comment on above: Order Comment: No: D o not add to previous draw Performed By: #### 4 1000, 19762, 36603, 32238, 40756, 50882 ####[facility] Creatinine 0.98 mg/dL Normal 0.70-1.30 [facility] Comment on above: Order Comment: No: D o not add to previous draw Performed By: #### 4 1000, 38536, 01935, 57234, 08536, 39075 ####[facility] eGFR (black) mL/min/{1.73_m2} Normal >60 [facility] Comment on above: Order Comment: No: D o not add to previous draw Result Comment: Calc ulation may not be valid for patients over 70 years Performed By: #### 4 1000, 54382, 83590, 63223, 03960, 01247 ####[facility] eGFR (non-black) mL/min/{1.73_m2} Normal >60 [facility] Comment on above: Order Comment: No: D o not add to previous draw Result Comment: Calc ulation may not be valid for patients over 70 years Performed By: #### 4 1000, 93429, 63338, 52578, 03327, 61283 ####[facility] [place] [address], [facility] Glucose mass conc 180 mg/dL High 70-100 [facility] Comment on above: Order Comment: No: D o not add to previous draw Performed By: #### 4 1000, 67171, 11878, 15070, 37049, 77216 ####[facility] [place] [address], [facility] Potassium molar conc 4.2 mmol/L Normal 3.5-5.1 [facility] Comment on above: Order Comment: No: D o not add to previous draw Performed By: #### 4 1000, 48525, 36761, 25073, 76964, 86892 ####[facility] [place] [address], [facility] Protein 5.9 g/dL Low 6.0-8.3 [facility] Comment on above: Order Comment: No: D o not add to previous draw Performed By: #### 4 1000, 22644, 93686, 80384, 38612, 58454 ####[facility] Sodium 135 mmol/L Low 136-145 [facility] Comment on above: Order Comment: No: D o not add to previous draw Performed By: #### 4 1000, 60205, 54069, 49263, 08390, 50591 ####[facility] Urea nitrogen 20 mg/dL Normal 7-25 [facility] Comment on above: Order Comment: No: D o not add to previous draw Performed By: #### 4 1000, 01025, 33042, 91990, 36950, 43413 ####[facility] CPKon 02-12-2017 Creatine kinase (CK) 44 U/L Normal 30-223 [facility] Comment on above: Order Comment: No: D o not add to previous draw Performed By: #### 4 1000, 13571, 27720, 06181, 95926, 95857 ####[facility] Cardiovascular Lab Reporton 02-12-2017 Cardiovascular Lab Report [facility] Patient Name: Elvira Bergman [facility] MR #: [id number] Physician: Marie Iraheta,Department of M.D.Medicine Service Date: 02/11/2017Division of Birthdate: 2Cardiology Room #: 3AB [id number] CardiovascularServicesUniversi Grma[address]jvsyu[address], [place] [address]Afany Fax Cardiovascular Laboratory ReportIMPRESSION:1. Successful balloon angioplasty, reduction of 80% in-stent restenosis to 0 using a 3.5 x 12 Synergy stent.2. Occluded right common iliac artery.3. Patent stent in right coronary artery with mild in-stent restenosis.INDICATION:Elvira Bergman is a 76-year-old male, [facility]. [facility] showed ST-elevation concerning for ST-elevationmyocardial infarction. Because of that, he was life flighted to [facility].PROCEDURE:1. Coronary angiography from right radial access.2. Balloon [...] This was discussed with patient and referring commercial mortgage broker.METHODS:After risks, benefits, and alternatives were explained to the patient, hewas brought to catheterization lab suite in a fasting state. Access wasobtained. Initially we tried to obtain in the right common femoral artery,however, it was a very feeble pulse and this access was abandoned. At thispoint of time, we accessed the right radial artery and a 6-Emirati sheathwas placed in. After that, the wire [...] time, this guide was taken outand a 6-Emirati JL-4 guide was used to engage the [...] this point of time, we used a 6-Emirati JR-5 toengage the right coronary ostium. This [...] 02/11/2017/02:36 P/Marie Iraheta M.D.Date Trans: 02/12/2017 02:21 A/Jimy_JN:[id number]: Bridget Farley M.D. [address] [facility] [address] Saw Nath M.D. [facility] [place] [address] Normal [facility] HEMOGLOBIN A1Con 02-12-2017 Glucose mass conc 143 mg/dL High 70-126 [facility] Comment on above: Order Comment: No: D o not add to previous draw Performed By: #### 8 5499 ####[facility] [place] [address], [facility] Hemoglobin A1c/Hemoglobin.to avtar mass fraction (Bld) 6.6 % High 4.0-6.0 [facility] Comment on above: Order Comment: No: D o not add to previous draw Performed By: #### 8 5499 ####[facility] [facility].[address] LIPID PROFILEon 02-12-2017 Cholesterol 107 mg/dL Low 120-200 [facility] Comment on above: Order Comment: No: D o not add to previous draw Result Comment: CHOL ESTEROL REFERENCE RANGE:20 YEARS AND OLDER CARDIOVASCULAR RISKLess than 200 mg/dl Low Adza884 to 239 mg/dl Borderline Pfdv956 mg/dl and greater High Risk Performed By: #### 4 1000, 58804, 92903, 15004, 82061, 59705 ####[facility]3000 [facility].[address] Cholesterol to HDL Ratio 3.7 {ratio} Normal .0-4.5 [facility] Comment on above: Order Comment: No: D o not add to previous draw Performed By: #### 4 1000, 17490, 48505, 40365, 60703, 07881 ####[facility] [facility].[address] HDL Cholesterol 29 mg/dL Normal 23-92 [facility] Comment on above: Order Comment: No: D o not add to previous draw Result Comment: Slig ht variation in normal range could be due to gender and/or age.HDL CHOLESTEROL REFERENCE RANGE:20 years and older Cardiovascular Risk> or =60 mg/dL Wfanbylyn69 TO 59 mg/dL Low Risk<40 mg/dL High Risk Performed By: #### 4 1000, 95179, 68228, 21669, 49319, 25006 ####[facility] [facility].[address] LDL Cholesterol 63 mg/dL Normal 0-130 [facility] Comment on above: Order Comment: No: D o not add to previous draw Result Comment: LDL IS A CALCULATIONLDL IS ONLY VALID IF THE TRIG IS LESS THAN 400. Performed By: #### 4 1000, 08988, 84245, 67887, 19973, 49231 ####[facility] NON-HDL CHOLESTEROL 78 mg/dL Normal [facility] Comment on above: Order Comment: No: D o not add to previous draw Performed By: #### 4 1000, 58532, 38471, 40299, 20353, 14854 ####[facility] Triglyceride 75 mg/dL Normal 40-149 [facility] Comment on above: Order Comment: No: D o not add to previous draw Result Comment: TRIG LYCERIDE REFERENCE RANGE:20 YEARS AND OLDER CARDIOVASCULAR RISKLESS THAN 150 mg/dl LOW [id number] TO 199 mg/dl BORDERLINE [id number] mg/dl AND GREATER HIGH RISK Performed By: #### 4 1000, 37342, 09723, 75504, 48901, 51735 ####[facility] VLDL CHOL 15 mg/dL Normal 0-40 [facility] Comment on above: Order Comment: No: D o not add to previous draw Performed By: #### 4 1000, 77228, 42783, 40670, 51289, 60942 ####[facility] [place] [address], [facility] MAGNESIUM BLOODon 02-12-2017 Magnesium 1.7 mg/dL Low 1.9-2.7 [facility] Comment on above: Order Comment: No: D o not add to previous draw Performed By: #### 4 1000, 29882, 24763, 54025, 19502, 41297 ####[facility] [place] [address], [facility] PHOSPHORUS BLOODon 7 Phosphate 3.7 mg/dL Normal 2.5-5.0 [facility] Comment on above: Order Comment: No: D o not add to previous draw Performed By: #### 4 1000, 96296, 35785, 96106, 40717, 7[address] ####[place] [address], [facility] POC GLUCOSE LABon 02-12-2017 Glucose mass conc 297 mg/dL High 70-100 [facility] Comment on above: Performed By: #### 8 5499 ####[address] [address], [facility] Glucose mass conc 184 mg/dL High 70-100 [facility] Comment on above: Performed By: #### 8 5499 ####[address] PORTABLE CHEST 1 VIEWon 01-22 PORTABLE CHEST 1 VIEW [facility] [address] [place] [id number] Patient Name: ELVIRA BERGMAN : 1940ex: MAge: Race: WhiteMRN: [id number]. Location: [id number] Status: IVisit #: [id number] Date: 02/12/2017 6:55:00 AMCompleted Date: 02/12/2017 07:59 AMRequesting Provider: MARIA LUISA COATES Attending Provider: MABEL SÁNCHEZ V Report Copy To: Signs & Symptoms: Chest PainHistory: Patient history not availableComments: R/O CardiomegalyExam: PORTABLE CHEST 1 VIEWAccession #: [id number] PORTABLE CHEST 1 VIEW 02/12/2017 7:59 AM [...] findings. Electronically signed by:Shalini Garcia. Transcribed by: [email or web address], User Resident: APOLONIA BOSTONElectronically Signed by: SHALINI GARCIA @ 02/12/2017 04:06 PMI personally read this/these film(s) with this resident Normal [facility] Comment on above: Order Comment: R/O C ardiomegaly TROPONIN-Ion 02-12-2017 Troponin I.cardiac mass conc 0.06 ng/mL High 0.00-0.04 [facility] Comment on above: Result Comment: REFE RENCE RANGES: 0.00 - 0.04 ng/ml NORMAL 0.05 - 0.50 ng/ml INDETERMINATE > 0.50 ng/ml CONSISTENT WITH AN M.I. Performed By: #### 4 1000, 88562, 91479, 27375, 68614, 23786 ####[facility] [address], [place] POC GLUCOSE LABon 02-11-2017 Glucose mass conc 224 mg/dL High 70-100 [facility] Comment on above: Performed By: #### 8 5499 ####[facility] [place] [address], [place] Glucose mass conc 158 mg/dL High 70-100 [facility] Comment on above: Performed By: #### 8 5499 ####[facility] Vital Signs Date Time Vital Sign Value Performing Clinician Zena cedillo 07-16-2024 09:41-0500 Body height 182.9 cm Pacc 1 Work Phone: [facility] 07-16-2024 09:41-0500 Body mass index (BMI) [Ratio] 24.52 kg/m2 Pacc 1 Work Phone: [facility] 07-16-2024 09:41-0500 Body temperature 97.59 [degF] Pacc 1 Work Phone: [facility] 07-16-2024 09:41-0500 Body weight 82 kg Pacc 1 Work Phone: [facility] 07-16-2024 09:41-0500 Diastolic blood pressure 64 mm[Hg] Pacc 1 Work Phone: [facility] 07-16-2024 09:41-0500 Heart rate 67 /min Pacc 1 Work Phone: [facility] 07-16-2024 09:41-0500 Respiratory rate 18 /min Pacc 1 Work Phone: [facility] 07-16-2024 09:41-0500 SaO2% (BldA) [Mass fraction] 98 % Pacc 1 Work Phone: [facility] 07-16-2024 09:41-0500 Systolic blood pressure 115 mm[Hg] Pacc 1 Work Phone: [facility] 03-14-2024 07:09-0400 Body height 182.9 cm Pacc 1 Work Phone: [facility] 03-14-2024 07:09-0400 Body mass index (BMI) [Ratio] 24.52 kg/m2 Pacc 1 Work Phone: [facility] 03-14-2024 07:09-0400 Body temperature 97.5 [degF] Pacc 1 Work Phone: [facility] 03-14-2024 07:09-0400 Body weight 82 kg Pacc 1 Work Phone: [facility] 03-14-2024 07:09-0400 Diastolic blood pressure 58 mm[Hg] Pacc 1 Work Phone: [facility] 03-14-2024 07:09-0400 Heart rate 64 /min Pacc 1 Work Phone: [facility] 03-14-2024 07:09-0400 Respiratory rate 16 /min Pacc 1 Work Phone: [facility] 03-14-2024 07:09-0400 SaO2% (BldA) [Mass fraction] 98 % Pacc 1 Work Phone: [facility] 03-14-2024 07:09-0400 Systolic blood pressure 93 mm[Hg] Pacc 1 Work Phone: [facility] Encounters Encounter Date Encounter Type Care Provider Facility Start: 01-23-2025 End: 01-23-2025 Patient encounter procedure Arash Post MD Work Phone: Ophthalmology Comment on above: 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) (Primary Dx) Start: 01-23-2025 End: 01-23-2025 ambulatory BRIDGET M HOY Facility:[facility] Start: 12-21-2024 End: 12-21-2024 Patient encounter procedure Arash Post MD Work Phone: Ophthalmology Comment on above: 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) Start: 12-21-2024 End: 12-21-2024 ambulatory BRIDGET M HOY Facility:[facility] Start: 10-31-2024 End: 10-31-2024 Patient encounter procedure Arash Post MD Work Phone: Ophthalmology Comment on above: 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) (Primary Dx) Start: 10-31-2024 End: 10-31-2024 ambulatory BRIDGET M HOY Facility:[facility] Start: 08-22-2024 End: 08-22-2024 ambulatory [facility] Facility:[facility] Start: 08-22-2024 End: 08-22-2024 Patient encounter procedure [...] 08-14-2024 End: 08-14-2024 ambulatory BRIDGET Kingston Karl Facility:[facility] Start: 08-14-2024 End: 08-14-2024 Patient encounter procedure Ramin Sprague MD Work Phone: Ophthalmology Comment on above: Pseudophakia of both eyes (Primary Dx); Exudative age-related macular degeneration of left eye with active choroidal neovascularization (HCC); Nonexudative age-related macular degeneration, right eye, intermediate dry stage; Strabismus Start: 08-13-2024 End: 08-13-2024 ambulatory BRIDGET Kingston Karl Facility:[facility] Start: 07-25-2024 End: 07-25-2024 Patient encounter procedure Arash Post MD Work Phone: Ophthalmology Comment on above: 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) (Primary Dx) Start: 07-25-2024 End: 07-25-2024 ambulatory BRIDGET Onofre Karl Facility:[facility] Start: 07-25-2024 Encounter for other preprocedural examination BRIDGET FARLEY [facility] Start: 07-18-2024 End: 07-18-2024 Telephone encounter Pacc Christine 2 Work Phone: Pre Anesthesia Comment on above: Results Start: 07-16-2024 End: 07-16-2024 Patient encounter procedure Eye Measurements Work Phone: Ophthalmology Comment on above: 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 Start: 07-16-2024 End: 07-16-2024 Admission to establishment [place] [id number] Work Phone: Pre Anesthesia Start: 07-16-2024 End: 07-16-2024 ambulatory [facility] Facility:[facility] Start: 07-16-2024 End: 07-16-2024 Anesthesia consultation [place] [id number] Work Phone: Pre Anesthesia Comment on above: Pre-op examination ( Primary Dx); Abnormal finding of blood chemistry, unspecified; Benign prostatic hyperplasia without urinary obstruction; Type 2 diabetes mellitus without complication, unspecified whether long term care administrator insulin use (HCC); Persistent atrial fibrillation (HCC); Atherosclerosis of coronary artery without angina pectoris, unspecified vessel or lesion type, unspecified whether [place] or transplanted heart; Essential hypertension; Pure hypercholesterolemia; Chronic systolic heart failure (HCC) Start: 07-16-2024 End: 07-16-2024 Preprocedural examination done [place] [id number] Work Phone: [facility] Work Phone: Start: 06-28-2024 End: 06-28-2024 [facility] Facility:[facility] Start: 06-28-2024 End: 06-28-2024 Patient encounter [...] upper eyelids; Strabismus Start: 06-20-2024 End: 06-20-2024 [facility] Facility:[facility] Start: 06-20-2024 End: 06-20-2024 Patient encounter procedure Arash Post MD Work Phone: Ophthalmology Comment on above: 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) Start: 05-03-2024 End: 05-04-2024 Telephone encounter Ramin Sprague MD Work Phone: Ophthalmology Comment on above: Medication Problem Refill Request Start: 04-25-2024 End: 04-25-2024 ambulatory BRIDGET FARLEY Facility:[facility] Start: 04-25-2024 End: 04-25-2024 Patient encounter procedure Arash Post MD Work Phone: Ophthalmology Comment on above: 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) Start: 04-12-2024 End: 04-12-2024 ambulatory BRIDGET FARLEY Facility:[facility] Start: 04-12-2024 End: 04-12-2024 Patient encounter procedure Ramin Sprague MD Work Phone: Ophthalmology Comment on above: Pseudophakia, right eye (Primary Dx); Combined form of age-related cataract, left eye Start: 04-11-2024 End: 04-11-2024 ambulatory RAMIN SPRAGUE Facility:[facility] Start: 03-14-2024 End: 03-14-2024 Patient encounter procedure Arash Post MD Work Phone: Ophthalmology Comment on above: 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) (Primary Dx) Nuclear senile catar act of right eye Start: 03-14-2024 End: 03-14-2024 Admission to establishment [facility] Work Phone: Pre Anesthesia Start: 03-14-2024 End: 03-14-2024 ambulatory ARASH POST Facility:[facility] Start: 03-14-2024 End: 03-14-2024 Anesthesia consultation P[facility] Work Phone: Pre Anesthesia Comment on above: Pre-op evaluation (P rimary Dx); Benign prostatic hyperplasia without urinary obstruction; Type 2 diabetes mellitus without complication, unspecified whether long term care administrator insulin use (HCC); Pure hypercholesterolemia; Essential hypertension; Persistent atrial fibrillation (HCC); Atherosclerosis of coronary artery without angina pectoris, unspecified vessel or lesion type, unspecified whether [place] or transplanted heart Start: 03-14-2024 Encounter for other preprocedural examination BRIDGET HOY [facility] Start: 03-14-2024 End: 03-14-2024 Preprocedural examination done [facility] 1 Work Phone: [facility] Work Phone: Start: 03-02-2024 End: 03-04-2024 [facility] Start: 02-23-2024 End: 02-23-2024 ambulatory RAMIN SPRAGUE Facility:[facility] Start: 02-23-2024 End: 02-23-2024 Patient encounter [...] Start: 02-15-2024 End: 02-15-2024 ambulatory NEY CISSE Facility:[facility] Start: 02-15-2024 End: 02-15-2024 Patient encounter procedure Arash Post MD Work Phone: Ophthalmology Comment on above: 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) (Primary Dx) Start: 01-30-2024 End: 02-01-2024 Subsequent hospital visit by physician pradip [facility] Comment on above: Traumatic closed fra cture of C2 vertebra with minimal displacement, initial encounter ([facility]) Start: 10-19-2023 End: 10-21-2023 ambulatory LISSETH KENNEY [facility] Start: 09-06-2023 End: 09-08-2023 ambulatory ELLIOT GARRIDO [facility] Start: 09-05-2023 End: 09-07-2023 ambulatory RELL ARRIAGA [facility] Start: 07-19-2023 End: 07-29-2023 Evaluation and management of inpatient PRERNA FISHER [facility] Start: 07-12-2023 End: 07-19-2023 Evaluation and management of inpatient ALISON MAE [facility] Start: 07-11-2023 End: 07-12-2023 Emergency department patient visit Jasiel Franks Facility:[facility] Start: 09-20-2022 End: 10-20-2022 ambulatory MORALEZ [...] FAWWAD Facility:[facility] Start: 03-12-2022 End: 03-12-2022 ambulatory [facility] Start: 02-22-2022 End: 03-22-2022 ambulatory MORALEZ H FAWWAD Facility:[facility] Start: 02-19-2022 ambulatory [facility] Start: 02-18-2022 End: 02-18-2022 Evaluation and management of inpatient MORALEZ H FAWWAD Facility:[facility] Start: 02-02-2022 End: 02-20-2022 ambulatory SHAIKH Kirt MALDONADO Facility:[facility] Start: 2021 End: 12-24-[address] BRIDGET FARLEY . Facility:[facility] Start: 11-17-2021 End: 11-17-[address] BRIDGET FARLEY . Facility:[facility] Start: 05-01-2019 End: 05-02-2019 ambulatory Christie DONALD Facility:CD:[id number] 1 5 Start: 02-11-2017 End: 02-12-2017 Evaluation and management of inpatient PROVIDER UNKNOWN Facility:[facility] Procedures Date Procedure Procedure Detail Performing Clinician [...] DTaP/Tdap/Td vaccine (2 - Td or Tdap) [facility] Start: 07-11-2033 Urine microalbumin profile DTaP,Tdap,Td Vaccine (2 - Td or Tdap) [facility] Start: 07-26-2026 Diabetes Screening Diabetes Screening [facility] Start: 02-07-2026 End: 07-17-2026 OCT MACULA CIRRUS OU (BOTH EYES) OCT MACULA CIRRUS OU (BOTH EYES) [facility] Imaging Routine Exudative age-related macular degeneration of left eye with active choroidal neovascularization (HCC) Expected: 02/07/2026, Expires: 07/17/2026 [facility] Work Phone: Comment on above: Expected: 02/07/2026, Expires: Start: 01-23-2026 Glaucoma screening Dilated Retinal Exam [facility] Start: 12-21-2025 Glaucoma screening Dilated Retinal Exam [facility] Start: 11-15-2025 End: 04-24-2026 OCT MACULA CIRRUS OU (BOTH EYES) OCT MACULA CIRRUS OU (BOTH EYES) [facility] Imaging Routine Exudative age-related macular degeneration of left eye with active choroidal neovascularization (HCC) Expected: 11/15/2025, Expires: 04/24/2026 [facility] Work Phone: Comment on above: Expected: 11/15/2025, Expires: Start: 09-06-2025 End: 02-13-2026 OCT MACULA CIRRUS OU (BOTH EYES) OCT MACULA CIRRUS OU (BOTH EYES) [facility] Imaging Routine Exudative age-related macular degeneration of left eye with active choroidal neovascularization (HCC) Expected: 09/06/2025, Expires: 02/13/2026 [facility] Work Phone: Comment on above: Expected: 09/06/2025, Expires: Start: 07-25-2025 Glaucoma screening Dilated Retinal Exam [facility] Start: 07-05-2025 End: 12-12-2025 OCT MACULA CIRRUS OU (BOTH EYES) OCT MACULA CIRRUS OU (BOTH EYES) [facility] Imaging Routine Exudative age-related macular degeneration of left eye with active choroidal neovascularization (HCC) Expected: 07/05/2025, Expires: 12/12/2025 [facility] Work Phone: Comment on above: Expected: 07/05/2025, Expires: Start: 06-28-2025 End: 12-20-2025 ASCAN ONLY - DIAGNOSTIC OS (LEFT EYE) ASCAN ONLY - DIAGNOSTIC OS (LEFT EYE) [facility] Imaging Routine Nuclear senile cataract of left eye Expected: 06/28/2025, Expires: 12/20/2025 [facility] Comment on above: Expected: 06/28/2025, Expires: Start: 06-28-2025 Glaucoma screening Dilated Retinal Exam [facility] Start: 06-28-2025 End: 12-20-2025 IOL BIOMETRY W/ IOL CALC OS (LEFT EYE) IOL BIOMETRY W/ IOL CALC OS (LEFT EYE) [facility] Imaging Routine Nuclear senile cataract of left eye Expected: 06/28/2025, Expires: 12/20/2025 [facility] Comment on above: Expected: 06/28/2025, Expires: Start: 05-10-2025 End: 10-17-2025 OCT MACULA CIRRUS OU (BOTH EYES) OCT MACULA CIRRUS OU (BOTH EYES) [facility] Imaging Routine Exudative age-related macular degeneration of left eye with active choroidal neovascularization (HCC) Expected: 05/10/2025, Expires: 10/17/2025 [facility] Work Phone: Comment on above: Expected: 05/10/2025, Expires: Start: 05-01-2025 End: 05-01-2025 Patient encounter procedure 05/01/2025 1:45 PM EST Office Visit [facility] Ophthalmology [address] [place] [address] Arash Post MD [address] [place] [address] [facility] [address] [address] *14 W, DTI EYLEA OS Ophthalmology Comment on above: *14 W, DTI EYLEA OS Start: 03-29-2025 End: 09-05-2025 OCT MACULA CIRRUS OU (BOTH EYES) OCT MACULA CIRRUS OU (BOTH EYES) [facility] Imaging Routine Exudative age-related macular degeneration of left eye with active choroidal neovascularization (HCC) Expected: 03/29/2025, Expires: 09/05/2025 [facility] Work Phone: Comment on above: Expected: 03/29/2025, Expires: Start: 03-01-2025 End: 08-08-2025 OCT MACULA CIRRUS OU (BOTH EYES) OCT MACULA CIRRUS OU (BOTH EYES) [facility] Imaging Routine Exudative age-related macular degeneration of left eye with active choroidal neovascularization (HCC) Expected: 03/01/2025, Expires: 08/08/2025 [facility] Work Phone: Comment on above: Expected: 03/01/2025, Expires: Start: 02-22-2025 End: 08-16-2025 ASCAN ONLY - DIAGNOSTIC OD (RIGHT EYE) ASCAN ONLY - DIAGNOSTIC OD (RIGHT EYE) [facility] Imaging Routine Nuclear senile cataract of right eye Expected: 02/22/2025, Expires: 08/16/2025 [facility] Comment on above: Expected: 02/22/2025, Expires: Start: 02-22-2025 Glaucoma screening Dilated Retinal Exam [facility] Start: 02-22-2025 End: 08-16-2025 IOL BIOMETRY W/ IOL CALC OD (RIGHT EYE) IOL BIOMETRY W/ IOL CALC OD (RIGHT EYE) [facility] Imaging Routine Nuclear senile cataract of right eye Expected: 02/22/2025, Expires: 08/16/2025 [facility] Comment on above: Expected: 02/22/2025, Expires: Start: 01-23-2025 End: 01-23-2025 Patient encounter procedure Ophthalmolog y Comment on above: Return in about 12 weeks (around ). *12 W, DFE/OCT, EYLE A OS Start: 01-21-2025 Influenza vaccination [facility] Start: 01-13-2025 [facility] Start: 10-31-2024 End: 10-31-2024 Patient encounter procedure 10/31/2024 2:00 PM EDT Office Visit [facility] Ophthalmology [address] [place] [address] Arash Post MD [address] [place] [address] *10 W DTI EYLEA OS Ophthalmology Comment on above: *10 W DTI EYLEA OS Start: 08-22-2024 End: 08-22-2024 Patient encounter procedure Ophthalmolog y Comment on above: *10 W DTI EYLEA OS 1 WEEK- CATARACT HAO CARLOS ALBERTO LEFT EYE ONLY - MELVIN Start: 08-14-2024 End: 08-14-2024 Patient encounter procedure 08/14/2024 10:15 AM EDT Office Visit [facility] Ophthalmology [address] [place] [address] Ramin Sprague MD [address] [place] [address] 1 DAY- CATARACT SURGERY LEFT EYE ONLY - MELVIN Ophthalmology Comment on above: 1 DAY- CATARACT SURGERY LEFT EYE ONLY - MELVIN Start: 08-13-2024 End: 08-13-2024 Admission to same day surgery center 08/13/2024 9:45 AM EDT - 08/13/2024 10:20 AM EDT Surgery Ambulatory Surgery [address] [place] [address] Ramin Sprague MD [address] [facility] [place] [address] PHACOEMULSIFICATION CATARACT IMPLANT INTRAOCULAR LENS W/O ENDOSCOPIC [...] AM EDT Hospital Encounter Ambulatory Surgery [address] [facility] [place] [address] Ramin Sprague MD [address] [facility] [place] [address] Nuclear senile cataract of left eye [H25.12] [...] metabolic 2000 panel - Serum or Plasma [facility] Comment on above: Expected: 07/16/2024, Expires: Start: 07-16-2024 End: 10-15-2024 Hemoglobin A1c in Blood [facility] Work Phone: Comment on above: Expected: 07/16/2024, Expires: Start: 07-16-2024 End: 07-16-2024 Patient encounter procedure 07/16/2024 11:00 AM EST Office Visit [facility] Ophthalmology [address] [facility] [place] [address] CATARACT SURGERY LEFT EYE ONLY - MELVIN Ophthalmology Comment on above: CATARACT SURGERY LEFT EYE ONLY - MELVIN Start: 07-16-2024 End: 07-16-2024 Admission to same day surgery center 07/16/2024 10:20 AM EST PAT Pre Anesthesia [address] [facility] [place] [address] 1, Pacc Christine [address] [facility] [place] [address] CATARACT SURGERY LEFT EYE ONLY - MELVIN Pre Anesthesia Comment on above: CATARACT SURGERY LEFT EYE ONLY - MELVIN Start: 06-28-2024 End: 06-28-2024 Patient encounter procedure Ophthalmolog y Comment on above: OS only CAT Eval CAT EVAL OS Start: 06-20-2024 End: 06-20-2024 Patient encounter procedure 06/20/2024 9:45 AM EST Office Visit [facility] [address] [facility] [place] [address] Arash Post MD [address] [place] [address] *8 W DTI EYLEA OS Ophthalmology Comment on above: *8 W DTI EYLEA OS Start: 05-23-2024 Advance Directive Discussion Advance Directive Discussion [facility] Start: 04-25-2024 End: 04-25-2024 Patient encounter procedure Ophthalmolog y Comment on above: Return in about 6 weeks (around ).DTI Eylea left eye *6 W, DTI EYLEA OS Start: 04-11-2024 End: 04-11-2024 Admission to same day surgery center 04/11/2024 12:20 PM EST - 04/11/2024 12:55 PM EST Surgery Ambulatory Surgery [address] [place] [address] Ramin Sprague MD [address] [facility] [place] [address] PHACOEMULSIFICATION CATARACT IMPLANT INTRAOCULAR LENS W/O ENDOSCOPIC [...] PM EST Hospital Encounter Ambulatory Surgery [address] [facility] [place] [address] Ramin Sprague MD [address] [facility] [place] [address] Nuclear senile cataract of right eye [H25.11] Ambulatory Surgery Comment on above: Nuclear senile cataract of right eye [H2 5.11] Start: 04-11-2024 End: 04-11-2024 Xcapsl ctrc rmvl insj io lens prosth w/o ecp PHACOEMULSIFICATION CATARACT IMPLANT INTRAOCULAR LENS W/O ENDOSCOPIC CYCLOPHOTOCOAGULATION Nuclear senile cataract of right eye 04/11/2024 12:20 PM EST [facility] [place] Start: 03-14-2024 End: 03-14-2024 Patient encounter procedure Ophthalmolog y Comment on above: Return in about 1 month (around 03/16/20). CATARACT SURGERY RIG HT EYE MELVIN *1 month (around ). EYLEA OS Start: 03-14-2024 End: 03-14-2024 Admission to same day surgery center 03/14/2024 7:00 AM EDT PAT Pre Anesthesia [address] [place] [address] 1, Pacc [facility] [address] [place] [address] CATARACT SURGERY RIGHT EYE MELVIN Pre Anesthesia Comment on above: CATARACT SURGERY RIGHT EYE MELVIN Start: 02-23-2024 End: 02-23-2024 Patient encounter procedure 02/23/2024 11:15 AM EDT Office Visit [facility]hthal[facility] [address] [facility] [place] [address] Ramin Sprague MD [address] [place] [address] Cataract Consult *Referral scanned into [facility].* Ophthalmology Comment on above: Cataract Consult *Referral scanned into [facility].* Start: 01-22-2024 COVID-19 Vaccine ( season) COVID-19 Vaccine ( season) [facility] Start: 01-22-2024 Covid-19 Vaccine ( season) Covid-19 Vaccine ( season) [facility] Start: 01-22-2024 Influenza vaccination Influenza Vaccine (#1) [facility] Start: 01-11-2024 Hemoglobin A1c measurement HbA1C [facility] Start: 12-22-2023 Influenza vaccination Flu vaccine (#1) [facility] Start: 10-19-2023 Annual Wellness Visit (Medicare) Annual Wellness Visit (Medicare) [facility] Start: 05-23-2023 Advance Directive Discussion Advance Directive Discussion [facility] Start: 2016 RSV Vaccine (1 - 1-dose 75+ series) RSV Vaccine (1 - 1-dose 75+ series) [facility] Start: 2006 Pneumococcal Vaccine: 65+ (1 of 1 - PCV) Pneumococcal Vaccine: 65+ (1 of 1 - PCV) [facility] Start: 12-21-2006 Medicare Annual Wellness Visit Medicare Annual Wellness Visit [facility] Start: 2001 Respiratory Syncytial Virus (RSV) or age 60 yrs+ (1 - 1-dose 60+ series) Respiratory Syncytial Virus (RSV) or age 60 yrs+ (1 - 1-dose 60+ series) [facility] Start: 12-24-1991 Shingles vaccine (1 of 2) Shingles vaccine (1 of 2) [facility] Start: 12-24-1991 Shingrix Vaccine (1 of 2) Shingrix Vaccine (1 of 2) [facility] Start: 1960 Pneumococcal Vaccine: 50+ (1 of 2 - PCV) Pneumococcal Vaccine: 50+ (1 of 2 - PCV) [facility] Start: 12-24-1959 Anxiety Screening Anxiety Screening [facility] Start: 12-24-1959 Depression Screening Depression Screening [facility] Start: 12-24-1959 Hepatitis B surface antibody level LDL Cholesterol [facility] Start: 1953 Depression Screen Depression Screen [facility] Start: 12-24-1951 Diabetic foot examination [facility] Start: 12-24-1951 Hepatitis B screening Urine Albumin:Creatinine Ratio [facility] Start: 12-24-1951 Lipid panel Lipids [facility] Start: 12-24-1947 Pneumococcal 65+ years Vaccine (1 of 2 - PCV) Pneumococcal 65+ years Vaccine (1 of 2 - PCV) [facility] Start: 12-24-1947 Pneumococcal Vaccine: 65+ (1 of 2 - PCV) Pneumococcal Vaccine: 65+ (1 of 2 - PCV) [facility] End: 08-13-2025 CORNEAL TOPOGRAPHY ATLAS OU (BOTH EYES) CORNEAL TOPOGRAPHY ATLAS OU (BOTH EYES) [facility] Imaging Routine Nuclear senile cataract of left eye Nuclear senile cataract of right eye 1 Occurrences starting 02/20/2024 until 08/13/2025 [facility] Comment on above: 1 Occurrences starting 02/20/2024 until 08/13/2025 CORNEAL TOPOGRAPHY A TLAS OU (BOTH EYES) CORNEAL TOPOGRAPHY ATLAS OU (BOTH EYES) [facility] Imaging Routine Nuclear senile cataract of left eye Nuclear senile cataract of right eye 02/23/2024 11:04 AM EDT [facility] End: 11-28-2025 CORNEAL TOPOGRAPHY PENTACAM OS (LEFT EYE) CORNEAL TOPOGRAPHY PENTACAM OS (LEFT EYE) [facility] Imaging Routine Nuclear senile cataract of left eye 1 Occurrences starting 06/06/2024 until 11/28/2025 [facility] Work Phone: Comment on above: 1 Occurrences starting 06/06/2024 until 11/28/2025 End: 08-13-2025 OCT MACULA CIRRUS OU (BOTH EYES) OCT MACULA CIRRUS OU (BOTH EYES) [facility] Imaging Routine Nuclear senile cataract of left eye Nuclear senile cataract of right eye 1 Occurrences starting 02/20/2024 until 08/13/2025 [facility] Work Phone: Comment on above: 1 Occurrences starting 02/20/2024 until 08/13/2025 OCT MACULA CIRRUS OU (BOTH EYES) OCT MACULA CIRRUS OU (BOTH EYES) [facility] Imaging Routine Nuclear senile cataract of left eye Nuclear senile cataract of right eye 02/23/2024 11:20 AM EDT [facility] Immunizations Immunization Date Immunization Notes Care Provider Fa [facility] 03-06-2021 influenza virus vacc ine, unspecified formulation Arash Post MD Work Phone: [facility] Payers Date Payer Category Payer Unknown [id number] 2023 Self-pay 2023 Unknown [id number] 2021 Private Health Insurance MMO MED ICARE SUPPLEMENT [id number] 2021 Unknown MMO MMO MEDICARE SUPPLEMENT [id number] 2021-Present [phone] [address] [place] [address] Indemnity [id number] 2019 Medicare [id number] 2006 Medicare [id number] 1959 Medicare [id number] 1959 Medicare [id number] 1959 Unknown [id number] 1941 Unknown [id number] 2.840.1.558332.3.579.2. 727 1941 Unknown [id number] 2.840.1.497166.3.579.2. 593 1941 Unknown [id number] 2.840.1.766289.3.579.2. 593 1941 Unknown [id number] 2.16840.1.905266.3.579.2. 593 1941 Unknown [id number] 2.16840.1.690776.3.579.2. 593 1941 Unknown [id number] 2.16.840.1.081633.3.579.2. 593 1941 Unknown [id number] 2.16840.1.402150.3.579.2. 593 1941 Unknown [id number] 2.16.840.1.008218.3.579.2. 593 1941 Unknown [id number] 2.16.840.1.414127.3.579.2. 593 1941 Unknown [id number] 2.16.840.1.821963.3.579.2. 593 1941 Unknown [id number] 2.16.840.1.022254.3.579.2. 593 1941 Unknown [id number] 2.16.840.1.715276.3.579.2. 593 1941 Unknown [id number] 2.16.840.1.121631.3.579.2. 593 1941 Unknown [id number] 2.16.840.1.838595.3.579.2. 593 1941 Unknown [id number] 2.16.840.1.113107.3.579.2. 593 1941 Unknown [id number] 2.16.840.1.678280.3.579.2. 593 1941 Unknown [id number] 2.16.840.1.010631.3.579.2. 593 1941 Unknown [id number] 2.16.840.1.916078.3.579.2. 593 1941 Unknown [id number] 2.16.840.1.910008.3.579.2. 176 1941 Unknown [id number] 2.16.840.1.718916.3.579.2. 173 1941 Unknown [id number] 2.16.840.1.502905.3.579.2. 173 1941 Unknown [id number] 2.16.840.1.110996.3.579.2. 173 1941 Unknown [id number] 2.16.840.1.825638.3.579.2. 175 1941 Unknown [id number] 2.16.840.1.118794.3.579.2. 175 1941 Unknown [id number] 2.16.840.1.572758.3.579.2. 175 Unknown X Medicare [id number] Unknown [id number] 2.16.840.1.989039.3.579.2. 531 Social History Date Type Detail Facility Start: 02-15-2024 End: 07-16-2024 Tobacco smoking status NHIS Ex-smoker [facility] Work Phone: Start: 05-23-2013 End: 02-15-1984 History of tobacco use Current smoker [facility] Start: 05-23-2013 End: 02-15-1984 History of tobacco use Cigarette Smoker [facility] Start: 02-15-2024 End: 07-16-2024 Tobacco use and exposure Smokeless tobacco non-user [facility] Start: 1941 Sex assigned at Not on file B ON [employer] Start: 02-15-2024 End: 04-11-2024 Gender identity Not on file [facility] Start: 02-15-2024 End: 04-11-2024 History of Social function [facility] Start: 01-04-2024 National Score (1-10 0), lower number is lower risk 78 [facility] Start: 03-14-2024 End: 01-23-2025 Alcoholic beverage intake Ex-drinker (finding) [facility] Has the [employer] or water [employer] threatened to shut off services in your home in past 12Mo No Pembe Panjur How often to you hav e a drink containing alcohol? Never [employer] (I/We) worried whejoanna er (my/our) food would run out before (I/we) got money to buy more. Never true [facility] Medical Equipment Procedure Code Equipment Code Equipment Origin al Text Equipment Identifier Dates [id number]. Lanette on [facility] - [id number] Start: 04-11-2024 Cc60yandy Gama on [facility] - [id number] Start: 08-13-2024 Clinical Notes 02-19-2022 to 01-23-2025 Arash Post MD - 01/23/2025 1:30 PM EDTPatient InstructionsSaArash riley MD - 12/21/2024 11:02 AM Arash Manzanares MD - 10/31/2024 2:00 PM EDTPatient InstructionsPatient Instructions Note Date & Type Note Facility 01-23-2025 Note Date of Procedure 01/23/2025. Sewer Pipe Layer Helper Information Manager Research Development: [facility]. OCT Macula Interpretation Right Eye Findings [...] its relevant components. documented in this encounter [facility] 01-23-2025 Note HNO ID: [id number] Author: ARASH POST MD Service: ? Author [...] agree with all of its relevant components. [facility] 01-23-2025 Note Date of Procedure 01/23/2025 [place] Protocol Safety Checklist A moment of CARE [...] Procedure Medications None. Home Going Prescription None. [facility] 01-23-2025 Instructions Arash Post MD - 01/23/2025 [...] than dabbing lightly with a tissue An zuuz-pdj-oydokuz pain reliever (i.e. Tylenol) can be used [...] If it is after hours please call [phone] which will give instructions on how to reach the eye doctor professional nursing assistant documented in this encounter [facility] 12-21-2024 Note HNO ID: [id number] Author: ARASH POST MD Service: ? Author [...] with all of its relevant components. / [facility] 12-21-2024 History of Present illness Narrative Neovascular [...] relevant components. / documented in this encounter [facility] 12-21-2024 Note Date of Procedure 12/21/2024. Sewer Pipe Layer Helper Information Manager Research Development: [employer]. Start time: 10:45 AM. Stop time: [...] ZEISS 10-31-2024 Note Date of Procedure 10/31/2024 [place] Protocol Safety Checklist A moment of CARE [...] Procedure Medications None. Home Going Prescription None. [facility] 10-31-2024 History of Present illness Narrative [...] relevant components. / documented in this encounter [facility] 10-31-2024 Note HNO ID: [id number] Author: ARASH POST MD Service: ? Author [...] with all of its relevant components. / [facility] 10-31-2024 Instructions Arash Post MD - 10/31/2024 [...] than dabbing lightly with a tissue An cqdy-hyq-gjvuhyb pain reliever (i.e. Tylenol) can be used [...] If it is after hours please call [phone] which will give instructions on how to reach the eye doctor professional nursing assistant documented in this encounter [facility] 08-22-2024 Note Date of Procedure 08/22/2024. Sewer Pipe Layer Helper Information Manager Research Development: SJ. Jacinto CONLEY. +movement. OCT Macula Interpretation Right Eye Findings include Drusen, Drusenoid PED; Negative for Intraretinal fluid, Cystoid macular edema, Subretinal fluid. Left Eye Findings include Drusen, Drusenoid PED, Atrophy; Negative for Intraretinal fluid, Cystoid macular edema, Subretinal fluid. Interval Change Right Eye Stable. Left Eye Stable. [facility] 08-22-2024 Note Date of Procedure 08/22/2024 [place] Protocol Safety Checklist Sign In: Special equipment [...] Post-procedure follow up management communicated. No specimens. [facility] 08-22-2024 Note HNO ID: [id number] Author: ELISA CHI OD Service: ? Author Type: OPERATIONAL REVIEW SERGEANT Type: Progress Notes Filed: 08/22/2024 13:22 Note [...] Chi, OD August 22, 2024 1:20 PM [facility] 08-22-2024 History of Present illness Narrative ASSESSMENT/PLAN: [...] 2024 1:20 PM documented in this encounter [facility] 08-22-2024 Note HNO ID: [id number] Author: ARASH POST MD Service: ? Author [...] agree with all of its relevant components. [facility] 08-22-2024 History of Present illness Narrative Neovascular [...] its relevant components. documented in this encounter [facility] 08-22-2024 Instructions Arash Post MD - [...] than dabbing lightly with a tissue An gfqw-syh-rasnjmm pain reliever (i.e. Tylenol) can be used [...] If it is after hours please call [phone] which will give instructions on how to reach the eye doctor professional nursing assistant documented in this encounter [facility] 08-14-2024 Note HNO ID: [id number] Author: RAMIN SPRAGUE MD Service: ? Author Type: OPERATIONAL REVIEW SERGEANT Type: Progress Notes Filed: 08/14/2024 18:40 Note [...] Chi, OD August 14, 2024 11:40 AM [facility] 08-14-2024 History of Present illness Narrative ASSESSMENT/PLAN: [...] 2024 11:40 AM documented in this encounter [facility] 07-25-2024 Note Date of Procedure 07/25/2024. OCT Macula Interpretation Right Eye Findings include Drusen, IS/OS junction, RPE Irregularity; Negative for Intraretinal fluid, Subretinal fluid. Left Eye Findings include Subretinal fluid, PED, Drusen, IS/OS junction, RPE Irregularity, Atrophy. Interval Change Right Eye Stable. Left Eye Stable. [facility] 07-25-2024 Note HNO ID: [id number] Author: ARASH POST MD Service: ? Author [...] agree with all of its relevant components. [facility] 07-25-2024 History of Present illness Narrative Dr [...] its relevant components. documented in this encounter [facility] 07-18-2024 Telephone encounter Note Per Christie Cassidy CNP, patient's potassium is elevated. I called and spoke with patient's nephew, Reid. He is aware patient needs to hold potassium supplement, increase hydration and avoid high potassium foods. Reid is aware patient needs to go to any [facility] lab next week for repeat lab. Corinna Murry LPN July 18, 2024 8:23 AM [facility] 07-18-2024 Miscellaneous Notes Per Christie Cassidy [...] 2024 8:23 AM documented in this encounter [facility] 07-16-2024 Note HNO ID: [id number] Author: CHRISTAL ANDERSON COA Service: ? Author Type: Sewer Pipe Layer Helper Type: Progress Notes Filed: 07/16/2024 11:17 Note Text: CONFIRM AIM NEAR LEFT EYE AIM -2.00 TORIC IOL DECLINED SECONDARY TO NEEDING PRISM GLASSES. PRAKASH Shafer [facility] 07-16-2024 Note Date of Procedure 07/16/2024. Sewer Pipe Layer Helper Information PRAKASH Shafer . Notes Measurements only - see Procedure Record under Scanned Documents for signed results. [facility] 07-16-2024 Note Date of Procedure 07/16/2024. Sewer Pipe Layer Helper Information PRAKASH Shafer . Notes Ascan report in paper chart and scanned to patient chart after post op period. A-SCAN RIGHT EYE: done A-SCAN LEFT EYE: 25.69 [facility] 07-16-2024 History of Present illness Narrative CONFIRM AIM NEAR LEFT EYE AIM -2.00 TORIC IOL DECLINED SECONDARY TO NEEDING PRISM GLASSES. PRAKASH Shafer documented in this encounter [facility] 07-16-2024 History and physical note [...] have a large neck STOP-Bang Score: 3 [id number] Score: Age: >=75 Sex: male CHF history: Yes Hypertension history: Yes Stroke/TIA/thromboembolism history: No Vascular disease history: Yes Diabetes history: Yes [id number] Score: 6 ARISCAT Score: Age: >80 Preoperative [...] surgery. Previously had right cataract done at [facility] on 04/11/24. CONSULTS: Patient does not require [...] fevers. Neuro: No history of TIA's, stroke, CORPORATE ADMINISTRATOR tumor, impaired sensorium, hemiplegia, paraplegia or quadraplegia. [...] Elvira Bergman DATE: 07/16/2024 TIME: 10:25 AM [facility] 07-16-2024 History and physical note HISTORY [...] have a large neck STOP-Bang Score: 3 [id number] Score: Age: >=75 Sex: male CHF history: Yes Hypertension history: Yes Stroke/TIA/thromboembolism history: No Vascular disease history: Yes Diabetes history: Yes [id number] Score: 6 ARISCAT Score: Age: >80 Preoperative [...] surgery. Previously had right cataract done at [facility] on 04/11/24. CONSULTS: Patient does not require [...] fevers. Neuro: No history of TIA's, stroke, CORPORATE ADMINISTRATOR tumor, impaired sensorium, hemiplegia, paraplegia or quadraplegia. [...] TIME: 10:25 AM documented in this encounter [facility] 07-16-2024 Instructions Christie Cassidy APRN.CNP - 07/16/2024 10:08 AM EST PATIENT PREOPERATIVE INSTRUCTIONS Ramin Sprague has scheduled you for your procedure at this surgery center: [facility]: [phone] --[address] [place] [address]. Please read below carefully for your personalized [...] office. If you are currently using a fmou-spx-qmmz injectable or oral medication for diabetes or [...] Procedures: - YOU MUST HAVE A RESPONSIBLE IRONER TAKE YOU HOME. A WILDLIFE CONSERVATION OFFICER OR PERSONAL LINES UNDERWRITER CANNOT BE MADE A RESPONSIBLE IRONER. - We recommend that a responsible person [...] Advance Directive, please fax a copy to [phone] or email to for it to be [...] chart that day. documented in this encounter [facility] 06-28-2024 Note HNO ID: [id number] Author: RAMIN SPRAGUE MD Service: ? Author [...] will still need to wear prism glasses timekeeper after having cataract surgery. - Contact lens [...] surgery left eye. 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 [facility] 06-28-2024 History of Present illness Narrative ASSESSMENT/PLAN: [...] will still need to wear prism glasses timekeeper after having cataract surgery. - Contact lens [...] surgery left eye. 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 Cisse; offered cataract Surgery OS, schedule via his nephew, who lives in [place] and drives patients for his visits here. [...] Ramin Sprague MD documented in this encounter [facility] 06-20-2024 Note Date of Procedure 06/20/2024. Sewer Pipe Layer Helper Information Manager Research Development: chelsy. OCT Macula Interpretation Right Eye Findings include Drusen, Drusenoid PED; Negative for Intraretinal fluid, Cystoid macular edema, Subretinal fluid. Left Eye Findings include Drusen, Drusenoid PED; Negative for Intraretinal fluid, Cystoid macular edema, Subretinal fluid. Interval Change Right Eye Stable. Left Eye Stable. [facility] 06-20-2024 Note HNO ID: [id number] Author: ARASH POST MD Service: ? Author [...] agree with all of its relevant components. [facility] 06-20-2024 History of Present illness Narrative Neovascular [...] its relevant components. documented in this encounter [facility] 06-20-2024 Note Date of Procedure 06/20/2024 [place] Protocol Safety Checklist Sign In: Special equipment [...] Post-procedure follow up management communicated. No specimens. [facility] 05-03-2024 Telephone encounter Note Patient has [...] Sprague starting tomorrow. Please review and advise. [facility] 05-03-2024 Miscellaneous Notes Patient has been [...] review and advise. documented in this encounter [facility] 05-03-2024 Telephone encounter Note Pt went to see at [facility] at the the one week follow up told the pt to start over with their eye drops. They are currently following the second week instructions 3 times a day. Pt stated they are almost out drops. Only enough for about the rest of the day. [facility] 05-03-2024 Miscellaneous Notes Pt went to see at [facility] at the the one week follow up told the pt to start over with their eye drops. They are currently following the second week instructions 3 times a day. Pt stated they are almost out drops. Only enough for about the rest of the day. documented in this encounter [facility] 04-25-2024 Note HNO ID: [id number] Author: ARASH POST MD Service: ? Author [...] agree with all of its relevant components. [facility] 04-25-2024 Note Date of Procedure 04/25/2024. Interpretation Right Eye Findings include Drusen, Drusenoid PED; Negative for Intraretinal fluid, Cystoid macular edema, Subretinal fluid. Left Eye Findings include PED, Drusen, Drusenoid PED; Negative for Intraretinal fluid, Cystoid macular edema, Subretinal fluid. Interval Change Right Eye Stable. Left Eye Better. [facility] 04-25-2024 Note Date of Procedure 04/25/2024 [place] Protocol Safety Checklist Sign In: A moment [...] communicated. No specimens. Notes Lot # Exp [facility] 04-25-2024 History of Present illness Narrative [...] its relevant components. documented in this encounter [facility] 04-12-2024 Note HNO ID: [id number] Author: ELISA CHI OD Service: ? Author Type: OPERATIONAL REVIEW SERGEANT Type: Progress Notes Filed: 04/12/2024 10:42 Note [...] Chi, OD April 12, 2024 10:29 AM [facility] 04-12-2024 History of Present illness Narrative ASSESSMENT/PLAN: [...] 2024 10:29 AM documented in this encounter [facility] 03-14-2024 Note Date of Procedure 03/14/2024. Sewer Pipe Layer Helper Information Manager Research Development: MACIE. Interpretation Right Eye Findings include Drusen, Drusenoid PED; Negative for Intraretinal fluid, Cystoid macular edema, Subretinal fluid. Left Eye Findings include Drusen, Drusenoid PED; Negative for Intraretinal fluid, Cystoid macular edema, Subretinal fluid. Interval Change Right Eye Stable. Left Eye Better. [facility] 03-14-2024 Note Date of Procedure 03/14/2024 [place] Protocol Safety Checklist Sign In: Special equipment [...] Post-procedure follow up management communicated. No specimens. [facility] 03-14-2024 Note HNO ID: [id number] Author: TRINA PANIAGUA COA Service: ? Author Type: Operator Helper Type: Progress Notes Filed: 03/16/2024 [...] PRAKASH Amador March 14, 2024 8:26 AM [facility] 03-14-2024 Note Date of Procedure 03/14/2024. Sewer Pipe Layer Helper Information Manager Research Development: trina. [facility] 03-14-2024 Note Date of Procedure 03/14/2024. Sewer Pipe Layer Helper Information Manager Research Development: trina. Notes Measurements only - see Procedure Record under Scanned Documents for signed results. [facility] 03-14-2024 History of Present illness Narrative Confirmed Aim: -1.50 Right eye only at this time LONG DISCUSSION of Cataract extraction and Age related macular degeneration - Dr RAY came in and re discussed with patient No toric recommended due will need prism post Cataract extraction with Dr Cises Written pre-op instructions regarding eye drops and care reviewed with patient. PRAKASH Amador March 14, 2024 8:26 AM documented in this encounter [facility] 03-14-2024 Note HNO ID: [id number] Author: ARASH PSOT MD Service: ? Author Type: Physician Type: [...] agree with all of its relevant components. [facility] 03-14-2024 History of Present illness Narrative Neovascular [...] its relevant components. documented in this encounter [facility] 03-14-2024 Instructions Vinny Jewell APRN.DAIRY NUTRITION SPECIALIST - 03/14/2024 7:25 AM EDT Images from the original note were not included. [facility] PATIENT PREOPERATIVE INSTRUCTIONS Ramin Sprague MD has scheduled you for your procedure at this surgery center: [facility]: [phone] --[address] [address]. Please read below carefully for your personalized [...] Procedures: - YOU MUST HAVE A RESPONSIBLE IRONER TAKE YOU HOME. A WILDLIFE CONSERVATION OFFICER OR PERSONAL LINES UNDERWRITER CANNOT BE MADE A RESPONSIBLE IRONER. - We recommend that a responsible person stays with you overnight to take care of you. - You cannot stay in a hotel alone after outpatient surgery. You will not be permitted to have your surgery, if you do not have someone to take care of you. If you already have an Advance Directive, please fax a copy to [phone] or email to for it to be [...] into your chart that day. Vinny Jewell APRN.DAIRY NUTRITION SPECIALIST documented in this encounter [facility] 03-14-2024 History and physical note Images [...] have a large neck STOP-Bang Score: 3 [id number] Score: Age: >=75 Sex: male CHF history: No Hypertension history: Yes Stroke/TIA/thromboembolism history: No Vascular disease history: Yes Diabetes history: Yes [id number] Score: 5 ARISCAT Score: Age: >80 Preoperative [...] fevers. Neuro: No history of TIA's, stroke, CORPORATE ADMINISTRATOR tumor, impaired sensorium, hemiplegia, paraplegia or quadraplegia. [...] 492 QTc Calculation (Bazett) ms 461 R [place] degrees -47 T [place] degrees 178 Resulting Agency [facility] Narrative Performed by [facility] Atrial fibrillation with slow [...] Elvira Bergman DATE: 03/14/2024 TIME: 7:27 AM [facility] 03-14-2024 History and physical note Images [...] have a large neck STOP-Bang Score: 3 [id number] Score: Age: >=75 Sex: male CHF history: No Hypertension history: Yes Stroke/TIA/thromboembolism history: No Vascular disease history: Yes Diabetes history: Yes [id number] Score: 5 ARISCAT Score: Age: >80 Preoperative [...] fevers. Neuro: No history of TIA's, stroke, CORPORATE ADMINISTRATOR tumor, impaired sensorium, hemiplegia, paraplegia or quadraplegia. [...] 492 QTc Calculation (Bazett) ms 461 R [place] degrees -47 T [place] degrees 178 Resulting Agency [facility] Narrative Performed by [facility] Atrial fibrillation with slow [...] TIME: 7:27 AM documented in this encounter [facility] 02-23-2024 Note HNO ID: [id number] Author: RAMIN SPRAGUE MD Service: ? Author [...] need to continue to wear prism glasses timekeeper to correct diplopia and to correct residual [...] will still need to wear prism glasses timekeeper after having cataract surgery. - Contact lens [...] if patient desires. 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 Cisse; offered cataract Surgery OD (then OS once cleared by Dr. Post). Comanage with (more content not included)... [facility] 02-23-2024 History of Present illness Narrative ASSESSMENT/PLAN: [...] need to continue to wear prism glasses timekeeper to correct diplopia and to correct residual [...] will still need to wear prism glasses timekeeper after having cataract surgery. - Contact lens [...] if patient desires. 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 Cisse; [...] Sprague MD 02/23/24 documented in this encounter [facility] 02-15-2024 Note Date of Procedure 02/15/2024 [place] Protocol Safety Checklist Sign In: Special equipment [...] Post-procedure follow up management communicated. No specimens. [facility] 02-15-2024 Note Date of Procedure 02/15/2024. Interpretation Right Eye Findings include Drusen, Drusenoid PED; Negative for Intraretinal fluid, Cystoid macular edema, Subretinal fluid. Left Eye Findings include Subretinal fluid, Drusen, Drusenoid PED. Interval Change Right Eye Initial. Left Eye Initial. [facility] 02-15-2024 Instructions Arash Post MD - 02/15/2024 [...] than dabbing lightly with a tissue An xtrg-swu-fdrtqdy pain reliever (i.e. Tylenol) can be used [...] If it is after hours please call [phone] which will give instructions on how to reach the eye doctor professional nursing assistant documented in this encounter [facility] 02-15-2024 History of Present illness Narrative [...] -Patient is scheduled for an evaluation at [place] Follow Up: 1 month for DTI Eylea [...] its relevant components. documented in this encounter [facility] 02-15-2024 Note HNO ID: [id number] Author: ARASH POST MD Service: ? Author [...] -Patient is scheduled for an evaluation at [place] Follow Up: 1 month for DTI Eylea [...] agree with all of its relevant components. [facility] 04-03-2022 Note PROCEDURE: XR KNEE R T 4V or > COMPARISON: None. HISTORY: Pain FINDINGS: BONES:No fracture, acute abnormality, or significant arthropathy. SOFT TISSUES:Negative. No visible soft tissue swelling. EFFUSION:None visible. OTHER: Extensive vascular calcification IMPRESSION: No acute abnormality Electronically authenticated by: CHEPE MONTES DE OCA Date: 2022-04-03 18:18 [facility] 03-12-2022 Note Patient here to disc uss LORENZO/cardioversion. Review of Systems Cardiovascular: Positive for leg swelling. Neurological: Positive for light-headedness. All other systems reviewed and are negative. [facility] 03-12-2022 Note MD Cardiology Consul t Note Reason for Consultation: CMP/ Afib HPI: Elvira Bergman is a 81 y.o. year old with past medical history of Afib, TN s/p PCI/stent placement 01/2017 with prior TN/stents in 2004 to the LAD and RCA, HFrEF, PVD, DM type II, and HTN. He recently presented to [facility] with c/o worsening SOB. 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 PSHx: cardiac cath 2004 FMHx: father - [place] ETOH: denies Tobacco: former smoker Illicit drugs: [...] Atrial Rate 09 (more content not included)... [facility] 02-19-2022 Note [facility] Cardiology Consul t Note Reason for Consultation: CMP HPI: Elvira Bergman is a 81 y.o. year old with past medical history of Afib, TN s/p PCI/stent placement 01/2017 with prior TN/stents in 2004 to the LAD and RCA, HFrEF, PVD, DM type II, and HTN. He recently presented to [facility] with c/o worsening SOB. He was [...] PSHx: cardiac cath 2004 FMHx: father - [place] ETOH: denies Tobacco: former smoker Illicit drugs: [...] a 76-year-old male, who was admitted at [facility] with chest pain. His ECG showed ST-elevation concerning for ST-elevation myocardial infarction. Because of that, he was life flighted to [facility]. PROCEDURE: 1. Coronary angiography from right radial access. 2. Balloon angioplasty in LAD. 3. Drug-eluting (more content not included)... [facility] 02-19-2022 Note 1 [facility] Evaluation note Diagnosis Exudative age-related macular degeneration of left eye with active choroidal neovascularization (HCC)- Primary [facility] Nuclear senile cataract of right eye- Primary Nuclear senile cataract of left eye Regular astigmatism of both eyes Regular astigmatism 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, right eye, 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 Nuclear senile cataract of right eye [facility] Diagnosis Pre-op evaluation- Primary Preoperative examination, unspecified Benign prostatic hyperplasia without urinary obstruction Type 2 diabetes mellitus without complication, unspecified whether assisted insulin use (HCC) Pure hypercholesterolemia Essential hypertension Unspecified essential hypertension Persistent atrial fibrillation (HCC) Atrial fibrillation Atherosclerosis of coronary artery without angina pectoris, unspecified vessel or lesion type, unspecified whether [place] or transplanted heart Nuclear senile cataract of [...] stable on Flomax documented in this encounter [facility] note* Diagnosis Exudative age-related macular degeneration of left eye with active choroidal neovascularization (HCC)- Primary Pre-op evaluation- Primary Preoperative examination, unspecified Benign prostatic hyperplasia without urinary obstruction Type 2 diabetes mellitus without complication, unspecified whether assisted insulin use (HCC) Pure hypercholesterolemia Essential hypertension Unspecified essential hypertension Persistent atrial fibrillation (HCC) Atrial fibrillation Atherosclerosis of coronary artery without angina pectoris, unspecified vessel or lesion type, unspecified whether [place] or transplanted heart Nuclear senile cataract of right eye documented in this encounter [facility] note* Diagnosis Pre-op evaluation- Primary Preoperative examination, unspecified Benign prostatic hyperplasia without urinary obstruction Type 2 diabetes mellitus without complication, unspecified whether assisted insulin use (HCC) Pure hypercholesterolemia Essential hypertension Unspecified essential hypertension Persistent atrial fibrillation (HCC) Atrial fibrillation Atherosclerosis of coronary artery without angina pectoris, unspecified vessel or lesion type, unspecified whether [place] or transplanted heart Nuclear senile cataract of right eye Nuclear senile cataract of right eye documented in this encounter [facility] note* Diagnosis Pre-op evaluation- Primary Preoperative examination, unspecified Benign prostatic hyperplasia without urinary obstruction Type 2 diabetes mellitus without complication, unspecified whether long term care administrator insulin use (HCC) Pure hypercholesterolemia Essential hypertension Unspecified essential hypertension Persistent atrial fibrillation (HCC) Atrial fibrillation Atherosclerosis of coronary artery without angina pectoris, unspecified vessel or lesion type, unspecified whether [place] or transplanted heart Pseudophakia, right eye- Primary Lens replaced by other means Combined form of age-related cataract, left eye documented in this encounter [facility] note* Diagnosis Pre-op evaluation- Primary Preoperative examination, unspecified Benign prostatic hyperplasia without urinary obstruction Type 2 diabetes mellitus without complication, unspecified whether long term care administrator insulin use (HCC) Pure hypercholesterolemia Essential hypertension Unspecified essential hypertension Persistent atrial fibrillation (HCC) Atrial fibrillation Atherosclerosis of coronary artery without angina pectoris, unspecified vessel or lesion type, unspecified whether [place] or transplanted heart Exudative age-related macular degeneration of left eye with active choroidal neovascularization (HCC) documented in this encounter [facility] note* Diagnosis Traumatic closed fracture of C2 vertebra with minimal displacement, initial encounter ([facility]) documented in this encounter [facility] note* Diagnosis Pre-op evaluation- Primary Preoperative examination, unspecified Benign prostatic hyperplasia without urinary obstruction Type 2 diabetes mellitus without complication, unspecified whether assisted insulin use (HCC) Pure hypercholesterolemia Essential hypertension Unspecified essential hypertension Persistent atrial fibrillation (HCC) Atrial fibrillation Atherosclerosis of coronary artery without angina pectoris, unspecified vessel or lesion type, unspecified whether [place] or transplanted heart Exudative age-related macular degeneration of left eye with active choroidal neovascularization (HCC) Combined form of age-related cataract, left eye- Primary documented in this encounter [facility] note* Diagnosis Pre-op evaluation- Primary Preoperative examination, unspecified Benign prostatic hyperplasia without urinary obstruction Type 2 diabetes mellitus without complication, unspecified whether long term care administrator insulin use (HCC) Pure hypercholesterolemia Essential hypertension Unspecified essential hypertension Persistent atrial fibrillation (HCC) Atrial fibrillation Atherosclerosis of coronary artery without angina pectoris, unspecified vessel or lesion type, unspecified whether [place] or transplanted heart Nuclear senile cataract of [...] of left eye documented in this encounter [facility] note* Diagnosis Pre-op evaluation- Primary Preoperative examination, unspecified Benign prostatic hyperplasia without urinary obstruction Type 2 diabetes mellitus without complication, unspecified whether long term care administrator insulin use (HCC) Pure hypercholesterolemia Essential hypertension Unspecified essential hypertension Persistent atrial fibrillation (HCC) Atrial fibrillation Atherosclerosis of coronary artery without angina pectoris, unspecified vessel or lesion type, unspecified whether [place] or transplanted heart Pre-op examination- Primary Preoperative examination, unspecified Abnormal finding of blood chemistry, unspecified Benign prostatic hyperplasia without urinary obstruction Type 2 diabetes mellitus without complication, unspecified whether assisted insulin use (HCC) Persistent atrial fibrillation (HCC) Atrial fibrillation Atherosclerosis of coronary artery without angina pectoris, unspecified vessel or lesion type, unspecified whether [place] or transplanted heart Essential hypertension Unspecified essential [...] stable on flomax documented in this encounter [facility] note* Diagnosis Pre-op evaluation- Primary Preoperative examination, unspecified Benign prostatic hyperplasia without urinary obstruction Type 2 diabetes mellitus without complication, unspecified whether assisted insulin use (HCC) Pure hypercholesterolemia Essential hypertension Unspecified essential hypertension Persistent atrial fibrillation (HCC) Atrial fibrillation Atherosclerosis of coronary artery without angina pectoris, unspecified vessel or lesion type, unspecified whether [place] or transplanted heart Nuclear senile cataract of left eye Pre-op examination- Primary Preoperative examination, unspecified Abnormal finding of blood chemistry, unspecified Benign prostatic hyperplasia without urinary obstruction Type 2 diabetes mellitus without complication, unspecified whether assisted insulin use (HCC) Persistent atrial fibrillation (HCC) Atrial fibrillation Atherosclerosis of coronary artery without angina pectoris, unspecified vessel or lesion type, unspecified whether [place] or transplanted heart Essential hypertension Unspecified essential hypertension Pure hypercholesterolemia Chronic systolic heart failure (HCC) Chronic systolic heart failure Nuclear senile cataract of left eye [facility] Diagnosis Pre-op evaluation- Primary Preoperative examination, unspecified Benign prostatic hyperplasia without urinary obstruction Type 2 diabetes mellitus without complication, unspecified whether assisted insulin use (HCC) Pure hypercholesterolemia Essential hypertension Unspecified essential hypertension Persistent atrial fibrillation (HCC) Atrial fibrillation Atherosclerosis of coronary artery without angina pectoris, unspecified vessel or lesion type, unspecified whether [place] or transplanted heart Pre-op examination- Primary Preoperative examination, unspecified Abnormal finding of blood chemistry, unspecified Benign prostatic hyperplasia without urinary obstruction Type 2 diabetes mellitus without complication, unspecified whether long term care administrator insulin use (HCC) Persistent atrial fibrillation (HCC) Atrial fibrillation Atherosclerosis of coronary artery without angina pectoris, unspecified vessel or lesion type, unspecified whether [place] or transplanted heart Essential hypertension Unspecified essential hypertension Pure hypercholesterolemia Chronic systolic heart failure (HCC) Chronic systolic heart failure Exudative age-related macular degeneration of left eye with active choroidal neovascularization (HCC)- Primary Nuclear senile cataract of left eye documented in this encounter [facility] note* Diagnosis Pre-op evaluation- Primary Preoperative examination, unspecified Benign prostatic hyperplasia without urinary obstruction Type 2 diabetes mellitus without complication, unspecified whether long term care administrator insulin use (HCC) Pure hypercholesterolemia Essential hypertension Unspecified essential hypertension Persistent atrial fibrillation (HCC) Atrial fibrillation Atherosclerosis of coronary artery without angina pectoris, unspecified vessel or lesion type, unspecified whether [place] or transplanted heart Pre-op examination- Primary Preoperative examination, unspecified Abnormal finding of blood chemistry, unspecified Benign prostatic hyperplasia without urinary obstruction Type 2 diabetes mellitus without complication, unspecified whether assisted insulin use (HCC) Persistent atrial fibrillation (HCC) Atrial fibrillation Atherosclerosis of coronary artery without angina pectoris, unspecified vessel or lesion type, unspecified whether [place] or transplanted heart Essential hypertension Unspecified essential hypertension Pure hypercholesterolemia Chronic systolic heart failure (HCC) Chronic systolic heart failure Pseudophakia of both eyes- Primary Lens replaced by other means 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, right eye, intermediate dry stage Strabismus Unspecified disorder of eye movements documented in this encounter [facility] note* Diagnosis Pre-op evaluation- Primary Preoperative examination, unspecified Benign prostatic hyperplasia without urinary obstruction Type 2 diabetes mellitus without complication, unspecified whether assisted insulin use (HCC) Pure hypercholesterolemia Essential hypertension Unspecified essential hypertension Persistent atrial fibrillation (HCC) Atrial fibrillation Atherosclerosis of coronary artery without angina pectoris, unspecified vessel or lesion type, unspecified whether [place] or transplanted heart Pre-op examination- Primary Preoperative examination, unspecified Abnormal finding of blood chemistry, unspecified Benign prostatic hyperplasia without urinary obstruction Type 2 diabetes mellitus without complication, unspecified whether assisted insulin use (HCC) Persistent atrial fibrillation (HCC) Atrial fibrillation Atherosclerosis of coronary artery without angina pectoris, unspecified vessel or lesion type, unspecified whether [place] or transplanted heart Essential hypertension Unspecified essential hypertension Pure hypercholesterolemia Chronic systolic heart failure (HCC) Chronic systolic heart failure Pseudophakia of both eyes- Primary Lens replaced by other means 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, right eye, intermediate dry stage Strabismus Unspecified disorder of eye movements documented in this encounter [facility] note* Diagnosis Pre-op evaluation- Primary Preoperative examination, unspecified Benign prostatic hyperplasia without urinary obstruction Type 2 diabetes mellitus without complication, unspecified whether long term care administrator insulin use (HCC) Pure hypercholesterolemia Essential hypertension Unspecified essential hypertension Persistent atrial fibrillation (HCC) Atrial fibrillation Atherosclerosis of coronary artery without angina pectoris, unspecified vessel or lesion type, unspecified whether [place] or transplanted heart Pre-op examination- Primary Preoperative examination, unspecified Abnormal finding of blood chemistry, unspecified Benign prostatic hyperplasia without urinary obstruction Type 2 diabetes mellitus without complication, unspecified whether assisted insulin use (HCC) Persistent atrial fibrillation (HCC) Atrial fibrillation Atherosclerosis of coronary artery without angina pectoris, unspecified vessel or lesion type, unspecified whether [place] or transplanted heart Essential hypertension Unspecified essential hypertension Pure hypercholesterolemia Chronic systolic heart failure (HCC) Chronic systolic heart failure Exudative age-related macular degeneration of left eye with active choroidal neovascularization (HCC)- Primary documented in this encounter [facility] note* Diagnosis Pre-op evaluation- Primary Preoperative examination, unspecified Benign prostatic hyperplasia without urinary obstruction Type 2 diabetes mellitus without complication, unspecified whether assisted insulin use (HCC) Pure hypercholesterolemia Essential hypertension Unspecified essential hypertension Persistent atrial fibrillation (HCC) Atrial fibrillation Atherosclerosis of coronary artery without angina pectoris, unspecified vessel or lesion type, unspecified whether [place] or transplanted heart Pre-op examination- Primary Preoperative examination, unspecified Abnormal finding of blood chemistry, unspecified Benign prostatic hyperplasia without urinary obstruction Type 2 diabetes mellitus without complication, unspecified whether assisted insulin use (HCC) Persistent atrial fibrillation (HCC) Atrial fibrillation Atherosclerosis of coronary artery without angina pectoris, unspecified vessel or lesion type, unspecified whether [place] or transplanted heart Essential hypertension Unspecified essential hypertension Pure hypercholesterolemia Chronic systolic heart failure (HCC) Chronic systolic heart failure Exudative age-related macular degeneration of left eye with active choroidal neovascularization (HCC)- Primary documented in this encounter [facility] note* Diagnosis Pre-op evaluation- Primary Preoperative examination, unspecified Benign prostatic hyperplasia without urinary obstruction Type 2 diabetes mellitus without complication, unspecified whether long term care administrator insulin use (HCC) Pure hypercholesterolemia Essential hypertension Unspecified essential hypertension Persistent atrial fibrillation (HCC) Atrial fibrillation Atherosclerosis of coronary artery without angina pectoris, unspecified vessel or lesion type, unspecified whether [place] or transplanted heart Pre-op examination- Primary Preoperative examination, unspecified Abnormal finding of blood chemistry, unspecified Benign prostatic hyperplasia without urinary obstruction Type 2 diabetes mellitus without complication, unspecified whether long term care administrator insulin use (HCC) Persistent atrial fibrillation (HCC) Atrial fibrillation Atherosclerosis of coronary artery without angina pectoris, unspecified vessel or lesion type, unspecified whether [place] or transplanted heart Essential hypertension Unspecified essential hypertension Pure hypercholesterolemia Chronic systolic heart failure (HCC) Chronic systolic heart failure Exudative age-related macular degeneration of left eye with active choroidal neovascularization (HCC) [facility] Pre-[facility] evaluation- Primary Preoperative examination, unspecified Benign prostatic hyperplasia without urinary obstruction Type 2 diabetes mellitus without complication, unspecified whether long term care administrator insulin use (HCC) Pure hypercholesterolemia Essential hypertension Unspecified essential hypertension Persistent atrial fibrillation (HCC) Atrial fibrillation Atherosclerosis of coronary artery without angina pectoris, unspecified vessel or lesion type, unspecified whether [place] or transplanted heart Pre-op examination- Primary Preoperative examination, unspecified Abnormal finding of blood chemistry, unspecified Benign prostatic hyperplasia without urinary obstruction Type 2 diabetes mellitus without complication, unspecified whether assisted insulin use (HCC) Persistent atrial fibrillation (HCC) Atrial fibrillation Atherosclerosis of coronary artery without angina pectoris, unspecified vessel or lesion type, unspecified whether [place] or transplanted heart Essential hypertension Unspecified essential hypertension Pure hypercholesterolemia Chronic systolic heart failure (HCC) Chronic systolic heart failure Exudative age-related macular degeneration of left eye with active choroidal neovascularization (HCC)- Primary documented in this encounter [facility] Summary Purpose Family History No Family [...] and content) DATE CREATED AUTHOR 11/15/2017 [facility] DATE CREATED AUTHOR AUTHOR'S ORGANIZ ATION 05/21/2022 [facility] DATE CREATED AUTHOR AUTHOR'S ORGANIZ ATION 07/14/2022 [facility] DATE CREATED AUTHOR AUTHOR'S ORGANIZ ATION 10/29/2022 [facility] DATE CREATED AUTHOR AUTHOR'S ORGANIZ ATION 07/30/2023 [facility] DATE CREATED AUTHOR AUTHOR'S ORGANIZ ATION 09/08/2023 [facility] DATE CREATED AUTHOR AUTHOR[facility]S [facility]GANIZ ATION [facility] DATE CREATED AUTHOR AUTHOR'S ORGANIZ ATION 03/30/2024 [facility] DATE CREATED AUTHOR AUTHOR'S ORGANIZ ATION 01/25/2025 [facility] Source Comments (unrecognize d section and content) In the event this informatio n is protected by the Federal Confidentiality of Alcohol and Drug Abuse Patient Records regulations: The Federal rules restrict any use of the information to criminally investigate or prosecute any alcohol or drug abuse patient.[facility] the event this information is protected by the Federal Confidentiality of Alcohol and Drug Abuse Patient Records regulations: The Federal rules restrict any use of the information to criminally investigate or prosecute any alcohol or drug abuse patient.[facility] the event this information is protected by the Federal Confidentiality of Alcohol and Drug Abuse Patient Records regulations: The Federal rules restrict any use of the information to criminally investigate or prosecute any alcohol or drug abuse patient.[facility] the event this information is protected by the Federal Confidentiality of Alcohol and Drug Abuse Patient Records regulations: The Federal rules restrict any use of the information to criminally investigate or prosecute any alcohol or drug abuse patient.[facility] the event this information is protected by the Federal Confidentiality of Alcohol and Drug Abuse Patient Records regulations: The Federal rules restrict any use of the information to criminally investigate or prosecute any alcohol or drug abuse patient.[facility] the event this information is protected by the Federal Confidentiality of Alcohol and Drug Abuse Patient Records regulations: The Federal rules restrict any use of the information to criminally investigate or prosecute any alcohol or drug abuse patient.[facility] the event this information is protected by the Federal Confidentiality of Alcohol and Drug Abuse Patient Records regulations: The Federal rules restrict any use of the information to criminally investigate or prosecute any alcohol or drug abuse patient.[facility] the event this information is protected by the Federal Confidentiality of Alcohol and Drug Abuse Patient Records regulations: The Federal rules restrict any use of the information to criminally investigate or prosecute any alcohol or drug abuse patient.[facility] the event this information is protected by the Federal Confidentiality of Alcohol and Drug Abuse Patient Records regulations: The Federal rules restrict any use of the information to criminally investigate or prosecute any alcohol or drug abuse patient.[facility] the event this information is protected by the Federal Confidentiality of Alcohol and Drug Abuse Patient Records regulations: The Federal rules restrict any use of the information to criminally investigate or prosecute any alcohol or drug abuse patient.[facility] the event this information is protected by the Federal Confidentiality of Alcohol and Drug Abuse Patient Records regulations: The Federal rules restrict any use of the information to criminally investigate or prosecute any alcohol or drug abuse patient.[facility] the event this information is protected by the Federal Confidentiality of Alcohol and Drug Abuse Patient Records regulations: The Federal rules restrict any use of the information to criminally investigate or prosecute any alcohol or drug abuse patient.[facility] the event this information is protected by the Federal Confidentiality of Alcohol and Drug Abuse Patient Records regulations: The Federal rules restrict any use of the information to criminally investigate or prosecute any alcohol or drug abuse patient.[facility] Hospital[facility] the event this information is protected by the Federal Confidentiality of Alcohol and Drug Abuse Patient Records regulations: The Federal rules restrict any use of the information to criminally investigate or prosecute any alcohol or drug abuse patient.[facility] the event this information is protected by the Federal Confidentiality of Alcohol and Drug Abuse Patient Records regulations: The Federal rules restrict any use of the information to criminally investigate or prosecute any alcohol or drug abuse patient.[facility] the event this information is protected by the Federal Confidentiality of Alcohol and Drug Abuse Patient Records regulations: The Federal rules restrict any use of the information to criminally investigate or prosecute any alcohol or drug abuse patient.[facility] the event this information is protected by the Federal Confidentiality of Alcohol and Drug Abuse Patient Records regulations: The Federal rules restrict any use of the information to criminally investigate or prosecute any alcohol or drug abuse patient.[facility] the event this information is protected by the Federal Confidentiality of Alcohol and Drug Abuse Patient Records regulations: The Federal rules restrict any use of the information to criminally investigate or prosecute any alcohol or drug abuse patient.[facility] the event this information is protected by the Federal Confidentiality of Alcohol and Drug Abuse Patient Records regulations: The Federal rules restrict any use of the information to criminally investigate or prosecute any alcohol or drug abuse patient.[facility] Hospital[facility] the event this information is protected by the Federal Confidentiality of Alcohol and Drug Abuse Patient Records regulations: The Federal rules restrict any use of the information to criminally investigate or prosecute any alcohol or drug abuse patient.[facility] Hospital[facility] the event this information is protected by the Federal Confidentiality of Alcohol and Drug Abuse Patient Records regulations: The Federal rules restrict any use of the information to criminally investigate or prosecute any alcohol or drug abuse patient.[facility] Reason for Visit (unrecogniz ed section [...] Care Teams (unrecognized sec tion and content) Workers Compensation Attorney Relationship Specialty Start Date End Date Bridget Farley MD [address] [id number] PCP - General Family Medicine 04/11/24 Workers Compensation Attorney Relationship Specialty Start Date End Date Bridget Farley MD [address] [id number] PCP - General Family Medicine 04/11/24 Workers Compensation Attorney Relationship Specialty Start Date End Date Bridget Farley MD [address] [place] [address] PCP - General Family Medicine 04/11/24 Workers Compensation Attorney Relationship Specialty Start Date End Date Bridget Farley MD [address] [place] [address] PCP - General Family Medicine 04/11/24 Workers Compensation Attorney Relationship Specialty Start Date End Date Bridget Farley MD [address] [place] [facility] [place] [address] PCP - General Family Medicine 04/11/24 Workers Compensation Attorney Relationship Specialty Start Date End Date Bridget Farley MD [address] [place] [address] PCP - General Family Medicine 04/11/24 Workers Compensation Attorney Relationship Specialty Start Date End Date Bridget Farley MD [address] [place] [address] PCP - General Family Medicine 04/11/24 Workers Compensation Attorney Relationship Specialty Start Date End Date Bridget Farley MD [address] [place] [address] PCP - General Family Medicine 04/11/24 Workers Compensation Attorney Relationship Specialty Start Date End Date Bridget Farley MD [address] [place] [address] PCP - General Family Medicine 04/11/24 Workers Compensation Attorney Relationship Specialty Start Date End Date Bridget Farley MD [address] [place] [address] PCP - General Family Medicine 04/11/24 Workers Compensation Attorney Relationship Specialty Start Date End Date Bridget Farley MD [address] [place] [address] PCP - General Family Medicine 04/11/24 Workers Compensation Attorney Relationship Specialty Start Date End Date Bridget Farley MD [address] [place] [address] PCP - General Family Medicine 04/11/24 FOR [...] BE BASED ON THE PRIMARY CLINICAL RECORDS. [facility] [employer] [facility]. provides no warranty or guarantee of the accuracy or completeness of information in this document.
== END 2025-02-14 12:53 | disposition home or self-care (01) ==
LOC: CARD 12:52
PROVIDERS: PCP Family Medicine; Visit Provider Family Medicine
DX: I21.3 ST elevation (STEMI) myocardial infarction of unspecified site (principal); I34.0 Nonrheumatic mitral (valve) insufficiency; I07.1 Rheumatic tricuspid insufficiency; I48.0 Paroxysmal atrial fibrillation; I25.10 Atherosclerotic heart disease of native coronary artery without angina pectoris
CPT/HCPCS: 93306; 93356

== ENCOUNTER 2025-02-20 04:26 | Outpatient (RCR) | payer MEDICARE, OTHER, SELFPAY | END 2025-03-22 23:59 | disposition home or self-care (01) | LOC: MM 04:26 | PROVIDERS: PCP Family Medicine; Visit Provider Internal Medicine | DX: Z51.81 Encounter for therapeutic drug level monitoring (principal); Z79.01 Long term (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 of anticoagulants; I48.0 Paroxysmal atrial fibrillation | CPT/HCPCS: 85610; G0463 ==

== ENCOUNTER 2025-03-23 | Outpatient (RCR) | payer MEDICARE, OTHER, SELFPAY | END 2025-04-21 23:59 | disposition home or self-care (01) | LOC: MM | PROVIDERS: PCP Family Medicine; Visit Provider Family Medicine | DX: Z51.81 Encounter for therapeutic drug level monitoring (principal); Z79.01 Long term (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 of anticoagulants; I48.91 Unspecified atrial fibrillation | CPT/HCPCS: 85610; G0463 ==

== ENCOUNTER 2025-04-22 10:56 | Outpatient (RCR) | payer MEDICARE, OTHER, SELFPAY | END 2025-05-22 12:44 | disposition home or self-care (01) | LOC: MM 10:56 | PROVIDERS: PCP Family Medicine; Visit Provider Internal Medicine | DX: Z79.01 Long term (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 of anticoagulants (principal); I48.91 Unspecified atrial fibrillation | CPT/HCPCS: 85610; G0463 ==